=== PATIENT | female | born 1935 | race Caucasian/White ===

== ENCOUNTER 2016-04-14 11:54 | Emergency (ER) | payer OTHER ==
[~2016-04-14] VITALS: Ht 165.1 cm; Wt 81.7 kg
[2016-04-14 11:54] VITALS: Ht 165.1 cm; Wt 81.7 kg
[2016-04-14 12:51] LABS: BASO % 0.2 %; BASO ABS # 0.01 K/uL (0-0.2); COMPLETE YES; EOS % 1.8 %; HEMATOCRIT 38.5 % (37-47); IG% 0.5 %; LYMPH % 11.5 %; LYMPH ABS # 0.69 K/uL (1.2-3.4); MEAN CELL VOLUME 89.1 fL (80-100); MEAN CORPUSCULAR HEMOGLOBIN 29.9 pg (25-34); MEAN CORPUSCULAR HGB CONC 33.5 g/dl (32-36); MEAN PLATELET VOLUME 11.6 fL (7.4-10.4); PLATELET COUNT 179 K/uL (130-400); RED BLOOD COUNT 4.32 M/uL (4.2-5.4); WHITE BLOOD COUNT 6.01 K/uL (4.8-10.8)
[2016-04-14] MEDS ORDERED: QUET1TAB30 PO (12:56)
[2016-04-14] MEDS ORDERED: OXYB5TAB PO (12:56)
[2016-04-14] MEDS ORDERED: VORT10TA12 PO (12:56)
[2016-04-14] MEDS ORDERED: CALC600T9 PO (12:56)
[2016-04-14] MEDS ORDERED: DONE5TAB9 PO (12:56)
[2016-04-14] MEDS ORDERED: OMEGCAP2 PO (12:56)
[2016-04-14] MEDS ORDERED: ASPI81TA28 PO (12:56)
[2016-04-14] MEDS ORDERED: CYAN100T PO (12:56)
[2016-04-14] MEDS ORDERED: GLPSR/5 PO (12:56)
[2016-04-14] MEDS ORDERED: VITACAP26 PO (12:56)
[2016-04-14] MEDS ORDERED: CHOL20007 PO (12:56)
[2016-04-14] MEDS ORDERED: FERR28TA2 PO (12:56)
[2016-04-14] MEDS ORDERED: SITA25TA PO (12:56)
[2016-04-14] MEDS ORDERED: ROSU5TAB PO (12:56)
[2016-04-14 12:59] LABS: ALT/SGPT 38 U/L (12-78); BLOOD UREA NITROGEN 28 mg/dl (7-18); BUN/CREATININE RATIO 17.7 (10-20); CALCIUM 9.4 mg/dl (8.5-10.1); CARBON DIOXIDE 22 mmol/L (21-32); CHLORIDE 103 mmol/L (98-107); GLUCOSE 265 mg/dl (70-99); POTASSIUM 4.6 mmol/L (3.5-5.1); SODIUM 138 mmol/L (136-145)
[2016-04-14 13:09] LABS: ALB/GLOB RATIO 0.9 (0.9-2); ALKALINE PHOSPHATASE 86 U/L (45-117); AST/SGOT 27 U/L (15-37)
[2016-04-14] MEDS ORDERED: SODIUM CHLORIDE 0.9% 1000ML 1,000 ML IV STA (13:22)
--- NOTE | 2016-04-14 13:31 | DIAGNOSTIC IMAGING REPORT ---
SINGLE VIEW CHEST CLINICAL HISTORY: Generalized weakness. FINDINGS: An AP, portable, upright chest radiograph is obtained. No prior studies are available for comparison at the time of dictation. The examination is degraded by portable technique and patient rotation. The heart is mildly enlarged and there is atherosclerotic calcification of the thoracic aorta. The pulmonary vasculature is noncongested. The lungs and pleural spaces are clear. No pneumothorax is seen. The skeletal structures are osteopenic. The bony thorax is grossly intact. IMPRESSION: Cardiac enlargement with no active disease in the chest. Electronically signed by: Justus Galdamez M.D. 04/14/2016 1:29 PM
[2016-04-14] MEDS ORDERED: ACETAMINOPHEN 500 MG TAB PO STA (14:48)
[2016-04-14 15:08] LABS: INFLUENZA B PCR Neg for Influ B (NEG)
[2016-04-14 15:09] LABS: INFLUENZA A PCR POS for Influ A (NEG)
[2016-04-14] MEDS ORDERED: OSEL75CA12 PO (15:12)
--- NOTE | 2016-04-14 15:23 | EMERGENCY ROOM VISIT NOTE ---
History Report prepared by Lindsey: Su Dominguez Under the Supervision of: Dr. Boom Vines D.O. First contact with patient: 13:00 Chief Complaint: WEAKNESS Stated Complaint: LOWER EXTREMITY WEAKNESS Nursing Triage Summary: Per EMS, patient c/o of bilateral leg weakness, onset weakness at 0800 this morning. Patient states "My grandaughters have been sick with the flu. I have been weak all over. I could not even walk I was so weak. I've had a bad cough since Thursday. I feel fine. I am just so weak and tired." History of Present Illness The patient is a 80 year old female who presents to the Emergency Room with complaints of constant bilateral lower extremity weakness that started this morning. The patient states that when she woke up this morning she was experiencing generalized weakness and was unable to walk down the steps. Her helped her to the recliner and brought her a piece of toast but she was too weak to lift the toast up to her mouth and to open her mouth to eat the toast. Since then, the weakness in her upper body has resolved but her legs are still weak and "feel odd." The patient adds that she started to feel "yucky" two days ago when she began experiencing a cough. The cough is productive with white sputum. Source of History: patient Onset: this morning Position: leg (bilateral) Quality: other (weakness) Timing: constant Associated Symptoms: + cough (productive with white sputum), + weakness ( resolved in upper body) Review of Systems See HPI for pertinent positives & negatives. A total of 10 systems reviewed and were otherwise negative. Past Medical & Surgical Medical Problems: (1) Chronic kidney disease, stage IV (severe) Family History No pertinent family history Social History Smoking Status: Never Smoker Marital Status: Housing Status: lives with family Current/Historical Medications Scheduled Aspirin (Aspirin Ec), 81 MG PO DAILY Calcium Carbonate-Vitamin D (Calcium + D), 1 TAB PO DAILY Cholecalciferol (Vitamin D3), 1 TAB PO DAILY Cyanocobalamin (Vitamin B-12), 100 MCG PO DAILY Donepezil HCl (Aricept), 1 TAB PO HS Ferrous Sulfate (Iron), 65 MG PO DAILY Glipizide (Glipizide Xl), 10 MG PO DAILY [place]-3 Fatty Acids (Fish Oil), 1 CAP PO BID Oseltamivir (Tamiflu), 75 MG PO BID Oxybutynin Chloride (Oxybutynin Chloride Er), 1 TAB PO DAILY Quetiapine Fumarate (Seroquel), 12.5 MG PO HS Rosuvastatin Calcium (Crestor), 5 MG PO DAILY Sitagliptin Phosphate (Januvia), 25 MG PO DAILY Vitamins C & E (Vitamin C), 500 MG PO DAILY Vortioxetine HBr (Trintellix), 10 MG PO DAILY Allergies Coded Allergies: No Known Allergies (Unverified , 04/14/16) Physical Exam Vital Signs Date Time Temp Pulse Resp B/P Pulse Ox O2 Delivery O2 Flow Rate FiO2 04/14/16 14:39 60 18 145/73 97 Room Air 04/14/16 14:09 61 18 143/82 98 Room Air 04/14/16 13:21 70 21 144/81 98 Room Air 04/14/16 12:43 66 21 126/67 98 Room Air 04/14/16 12:30 70 04/14/16 11:54 37.6 69 21 145/82 98 Room Air Physical Exam CONSTITUTIONAL/VITAL SIGNS: Reviewed / noted above. GENERAL: Non-toxic in appearance. INTEGUMENTARY: Warm, dry, and [place]. HEAD: Normocephalic. EYES: without scleral icterus or trauma. ENT/OROPHARYNX: clear and moist. LYMPHADENOPATHY/NECK: Is supple without lymphadenopathy or meningismus. RESPIRATORY: Lungs clear and equal. Prominent cough. CARDIOVASCULAR: Regular rate and rhythm. GI/ABDOMEN: Soft and nontender. No organomegaly or pulsatile mass. No rebound or guarding. Normal bowel sounds. EXTREMITIES: Warm and well perfused. BACK: No CVA tenderness. NEUROLOGICAL: Intact without focal deficits. PSYCHIATRIC: normal affect. MUSCULOSKELETAL: Normally developed with good muscle tone. Generalized weakness. Medical Decision & Procedures ER Provider Diagnostic Interpretation: X ray results and stated below per my interpretation and radiology interpretation. SINGLE VIEW CHEST CLINICAL HISTORY: Generalized weakness. FINDINGS: An AP, portable, upright chest radiograph is obtained. No prior studies are available for comparison at the time of dictation. The examination is degraded by portable technique and patient rotation. The heart is mildly enlarged and there is atherosclerotic calcification of the thoracic aorta. The pulmonary vasculature is noncongested. The lungs and pleural spaces are clear. No pneumothorax is seen. The skeletal structures are osteopenic. The bony thorax is grossly intact. IMPRESSION: Cardiac enlargement with no active disease in the chest. Electronically signed by: Justus Galdamez M.D. 04/14/2016 1:29 PM Laboratory Results 04/14/16 11:54 Red Blood Count 4.32, Mean Corpuscular Volume 89.1, Mean Corpuscular Hemoglobin 29.9, Mean Corpuscular Hemoglobin Concent 33.5, Mean Platelet Volume 11.6, Neutrophils (%) (Auto) 72.0, Lymphocytes (%) (Auto) 11.5, Monocytes (%) (Auto) 14.0, Eosinophils (%) (Auto) 1.8, Basophils (%) (Auto) 0.2, Neutrophils # (Auto ) 4.33, Lymphocytes # (Auto) 0.69, Monocytes # (Auto) 0.84, Eosinophils # (Auto ) 0.11, Basophils # (Auto) 0.01 04/14/16 11:54 Test 04/14/16 11:54 04/14/16 13:20 White Blood Count 6.01 K/uL (4.8-10.8) Red Blood Count 4.32 M/uL (4.2-5.4) Hemoglobin 12.9 g/dL (12.0-16.0) Hematocrit 38.5 % (37-47) Mean Corpuscular Volume 89.1 fL (80-100) Mean Corpuscular Hemoglobin 29.9 pg (25-34) Mean Corpuscular Hemoglobin Concent 33.5 g/dl (32-36) Platelet Count 179 K/uL (130-400) Mean Platelet Volume 11.6 fL (7.4-10.4) Neutrophils (%) (Auto) 72.0 % Lymphocytes (%) (Auto) 11.5 % Monocytes (%) (Auto) 14.0 % Eosinophils (%) (Auto) 1.8 % Basophils (%) (Auto) 0.2 % Neutrophils # (Auto) 4.33 K/uL (1.4-6.5) Lymphocytes # (Auto) 0.69 K/uL (1.2-3.4) Monocytes # (Auto) 0.84 K/uL (0.11-0.59) Eosinophils # (Auto) 0.11 K/uL (0-0.5) Basophils # (Auto) 0.01 K/uL (0-0.2) RDW Standard Deviation 46.2 fL (36.4-46.3) RDW Coefficient of Variation 14.0 % (11.5-14.5) Immature Granulocyte % (Auto) 0.5 % Immature Granulocyte # (Auto) 0.03 K/uL (0.00-0.02) Anion Gap 13.0 mmol/L (3-11) Est Creatinine Clear Calc Drug Dose 29.1 ml/min Estimated GFR () 34.7 Estimated GFR (Non- 29.9 BUN/Creatinine Ratio 17.7 (10-20) Calcium Level 9.4 mg/dl (8.5-10.1) Total Bilirubin 0.4 mg/dl (0.2-1) Aspartate Amino Transf (AST/SGOT) 27 U/L (15-37) Alanine Aminotransferase (ALT/SGPT) 38 U/L (12-78) Alkaline Phosphatase 86 U/L (45-117) Total Creatine Kinase 68 U/L (26-192) Creatine Kinase MB < 0.5 ng/ml (0.5-3.6) Creatine Kinase MB Ratio (0-3.0) Troponin I 0.019 ng/ml (0-0.045) Total Protein 7.6 gm/dl (6.4-8.2) Albumin 3.7 gm/dl (3.4-5.0) Globulin 3.9 gm/dl (2.5-4.0) Albumin/Globulin Ratio 0.9 (0.9-2) Thyroid Stimulating Hormone (TSH) 1.440 uIu/ml (0.300-4.500) Influenza Type A (RT-PCR) POS for Influ A (NEG) Influenza Type B (RT-PCR) Neg for Influ B (NEG) Laboratory results as stated above per my review. Medications Administered Medications (Trade) Dose Ordered Sig/Margarita Route Start Time Stop Time Status Last Admin Dose Admin Sodium Chloride (Nss 1000ml) 1,000 ml @ 999 mls/hr Q1H1M STAT IV 04/14/16 13:22 04/14/16 14:22 DC 04/14/16 13:41 999 MLS/HR Acetaminophen (Tylenol Tab) 500 mg NOW STAT PO 04/14/16 14:48 04/14/16 14:49 DC 04/14/16 14:54 500 MG ECG Indication: weakness Rate (beats per minute): 70 Rhythm: normal sinus Findings: no acute ischemic change, no ectopy ED Course 1300: Previous medical records were reviewed. The patient was evaluated in room C7. A complete history and physical examination was performed. 1322: Ordered Sodium Chloride 1000 ml @ 999 mls/hr IV 1448: Ordered Tylenol tab 500 mg PO 1513: On reevaluation, the patient is doing well. I discussed the results and findings with the patient. She verbalized agreement of the treatment plan. She was discharged home. Medical Decision Differential includes acute coronary syndrome, myocardial infarction, CVA, TIA, anemia, infection, pneumonia, UTI, pyelonephritis, poor nutrition, dehydration, electrolyte disturbance,hypoglycemia. Is an 80-year-old female who presents to the ED with a chief complaint of the above symptoms. The patient complains of generalized weakness. She is also had a recent upper respiratory infection. Her exam findings reveal a prominent cough. The respiratory exam reveals generalized weakness. CBC did not reveal any significant anemia. Her electrolytes were normal. The BUN was elevated. She was treated with IV fluids here for dehydration. Influenza screen came back positive for influenza A. She did receive her flu shot this year. Chest x -ray was negative for acute disease. The patient was told the results. She was treated with Tamiflu. She'll be discharged on Tamiflu. Impression Primary Impression: Influenza A Additional Impression: Weakness Scribe Attestation The scribe's documentation has been prepared under my direction and personally reviewed by me in its entirety. I confirm that the note above accurately reflects all work, treatment, procedures, and medical decision making performed by me. Departure Information Dispostion Home / Self-Care Prescriptions Oseltamivir (Tamiflu) 75 Mg Cap 75 MG PO BID, #10 CAP Prov: Boom Vines D.O. 04/14/16 Referrals Sophie Liao DO (PCP) Forms HOME CARE DOCUMENTATION FORM, IMPORTANT VISIT INFORMATION Patient Instructions A Signature Page, Oseltamivir Phosphate Oral capsule Additional Instructions Tamiflu as prescribed. Tylenol/Motrin as needed for pain and fever. Drink plenty of liquids. Rest. Follow-up with your doctor for further care and evaluation in 3-7 days if symptoms persist. Return to the emergency department for worsening or new symptoms or any concerns. You have been examined and treated today on an emergency basis only. This is not a substitute for, or an effort to provide, complete comprehensive medical care. It is impossible to recognize and treat all injuries or illnesses in a single emergency department visit. It is therefore important that you follow up closely with your doctor. Call as soon as possible for an appointment.
[2016-04-14 15:27] VITALS: BP 148/75; PULSE 67; TEMP 37.6; O2SAT 97
== END 2016-04-14 15:35 | disposition home or self-care (01) ==
LOC: EDBD 11:54 → C.EDC 11:54
DX: R53.1 Weakness (principal); N18.4 Chronic kidney disease, stage 4 (severe); Z79.82 Long term (current) use of aspirin; Z79.899 Other long term (current) drug therapy

== ENCOUNTER → 2016-05-21 | Outpatient (CLI) | payer OTHER ==
[~2016-05-21] MED LIST: ASPI81TA28 PO; CALC600T9 PO; CHOL20007 PO; CYAN100T PO; DONE5TAB9 PO; FERR28TA2 PO; GLPSR/5 PO; OMEGCAP2 PO; OSEL75CA12 PO; OXYB5TAB PO; QUET1TAB30 PO; ROSU5TAB PO; SITA25TA PO; VITACAP26 PO; VORT10TA12 PO
[2016-05-21 14:00] LABS: ESTIMATED AVERAGE GLUCOSE 186 mg/dl; HA1C FLAG Normal (Normal)
== END | disposition home or self-care (01) ==
LOC: C.LABPBG 10:33
PROVIDERS: ATTEND Specialist
DX: E11.9 Type 2 diabetes mellitus without complications (principal)

== ENCOUNTER → 2016-06-09 | Outpatient (CLI) | payer OTHER ==
--- NOTE | 2016-06-09 13:29 | DIAGNOSTIC IMAGING REPORT ---
ULTRASOUND OF THE THYROID GLAND CLINICAL HISTORY: Nontoxic multinodular goiter. COMPARISON STUDY: No priors. TECHNIQUE: Real-time, grayscale, and color flow sonography of the thyroid gland is performed utilizing a high-frequency linear transducer. Images are reviewed in the transverse and longitudinal planes. FINDINGS: Right lobe: The right lobe of the thyroid gland is normal in size and homogeneous in echotexture, measuring 5.1 x 1.9 x 1.9 cm. Left lobe: The left lobe of the thyroid gland is normal in size and homogeneous in echotexture, measuring 4.8 x 2.4 x 1.8 cm. Isthmus: The thyroid isthmus is normal in appearance and measures 0.4 cm in AP diameter. A 6 mm cyst is incidentally noted on the right. Soft tissues: There is a 5.7 x 1.5 x 3.0 cm a circumscribed/lobulated soft tissue structure seen adjacent to the left lobe of the thyroid gland. This largely blends into the surrounding subcutaneous fat and is typical in appearance for a lipoma. IMPRESSION: 1. Unremarkable sonographic assessment of the thyroid gland. 2. 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 Electronically signed by: Justus Galdamez M.D. 06/09/2016 1:28 PM Dictated Date/Time: 06/09/2016 1:26 PM
== END | disposition home or self-care (01) ==
LOC: C.ULTR 12:48
PROVIDERS: ATTEND Family Medicine
DX: E04.2 Nontoxic multinodular goiter (principal)

== ENCOUNTER → 2016-06-19 | Outpatient (CLI) | payer OTHER | END | disposition home or self-care (01) | LOC: C.MAMM 12:51 | PROVIDERS: ATTEND Family Medicine | DX: M81.0 Age-related osteoporosis without current pathological fracture (principal); M85.852 Other specified disorders of bone density and structure, left thigh; M85.851 Other specified disorders of bone density and structure, right thigh ==

== ENCOUNTER → 2016-07-14 | Outpatient (CLI) | payer OTHER ==
[2016-07-14 12:31] LABS: URINE APPEARANCE CLEAR (CLEAR); URINE BILIRUBIN NEG (NEG); URINE COLOR YELLOW; URINE EPITHELIAL CELL AUTO 0-5 /lpf (0-5); URINE NITRITE NEG (NEG); URINE SPECIFIC GRAVITY 1.009 (1.000-1.030); UROBILINOGEN NEG (NEG)
[2016-07-14 12:33] LABS: HEMATOCRIT 36.3 % (37-47)
[2016-07-14 12:43] LABS: MANUAL MICROSCOPIC REQUIRED? NO; REVIEW REQ? NO
[2016-07-14 12:56] LABS: BLOOD UREA NITROGEN 33 mg/dl (7-18); BUN/CREATININE RATIO 18.2 (10-20); CALCIUM 9.3 mg/dl (8.5-10.1); CARBON DIOXIDE 26 mmol/L (21-32); CHLORIDE 105 mmol/L (98-107); GLUCOSE 165 mg/dl (70-99); POTASSIUM 4.5 mmol/L (3.5-5.1); SODIUM 140 mmol/L (136-145)
[2016-07-14 12:57] LABS: PHOSPHORUS 3.2 mg/dl (2.5-4.9)
[2016-07-14 13:15] LABS: RATIO 45.4 mcg/mg (0-30.0)
== END | disposition home or self-care (01) ==
LOC: C.LABPBG 10:34
PROVIDERS: ATTEND Internal Medicine Nephrology
DX: N18.4 Chronic kidney disease, stage 4 (severe) (principal); N20.0 Calculus of kidney; E11.22 Type 2 diabetes mellitus with diabetic chronic kidney disease; E64.9 Sequelae of unspecified nutritional deficiency

== ENCOUNTER → 2016-08-21 | Outpatient (CLI) | payer OTHER ==
[2016-08-21 18:07] LABS: CALCIUM URINE 5.1 mg/dl
== END | disposition home or self-care (01) ==
LOC: C.LABPBG 13:44
PROVIDERS: ATTEND Internal Medicine Rheumatology
DX: E61.8 Deficiency of other specified nutrient elements (principal); M81.0 Age-related osteoporosis without current pathological fracture; Z78.0 Asymptomatic menopausal state; E55.9 Vitamin D deficiency, unspecified

== ENCOUNTER → 2016-12-02 | Outpatient (CLI) | payer OTHER ==
[~2016-12-02] MED LIST changes: -OSEL75CA12 PO
[2016-12-02 13:30] LABS: ALT/SGPT 35 U/L (12-78); AST/SGOT 23 U/L (15-37); BLOOD UREA NITROGEN 23 mg/dl (7-18); BUN/CREATININE RATIO 15.5 (10-20); CALCIUM 9.2 mg/dl (8.5-10.1); CARBON DIOXIDE 26 mmol/L (21-32); CHLORIDE 110 mmol/L (98-107); CHOLESTEROL 192 mg/dl (0-200); GLUCOSE 138 mg/dl (70-99); POTASSIUM 4.5 mmol/L (3.5-5.1); SODIUM 141 mmol/L (136-145)
[2016-12-02 13:40] LABS: ALB/GLOB RATIO 1.1 (0.9-2); ALKALINE PHOSPHATASE 85 U/L (45-117); CHOLESTEROL/HDL RATIO 2.3; ESTIMATED AVERAGE GLUCOSE 197 mg/dl; HA1C FLAG Normal (Normal); HDL CHOLESTEROL 83 mg/dl; LDL CHOLESTEROL CALCULATED 82 mg/dl; TRIGLYCERIDES 134 mg/dl (0-150); VERY LOW DENSITY LIPOPROT CALC 27 mg/dl
== END | disposition home or self-care (01) ==
LOC: C.LABPBG 09:58
PROVIDERS: ATTEND Family Medicine
DX: E11.9 Type 2 diabetes mellitus without complications (principal)

== ENCOUNTER → 2017-01-21 | Outpatient (CLI) | payer OTHER ==
[2017-01-21 11:56] LABS: HEMATOCRIT 38.2 % (37-47)
[2017-01-21 11:57] LABS: URINE APPEARANCE CLEAR (CLEAR); URINE BILIRUBIN NEG (NEG); URINE COLOR YELLOW; URINE EPITHELIAL CELL AUTO 0-5 /lpf (0-5); URINE NITRITE NEG (NEG); URINE PH 5.5 (4.5-7.5); URINE SPECIFIC GRAVITY 1.015 (1.000-1.030); UROBILINOGEN NEG (NEG)
[2017-01-21 12:04] LABS: MANUAL MICROSCOPIC REQUIRED? NO; REVIEW REQ? NO
[2017-01-21 13:16] LABS: RATIO 50.9 mcg/mg (0-30.0)
[2017-01-21 18:18] LABS: BLOOD UREA NITROGEN 33 mg/dl (7-18); BUN/CREATININE RATIO 20.5 (10-20); CALCIUM 9.6 mg/dl (8.5-10.1); CARBON DIOXIDE 22 mmol/L (21-32); CHLORIDE 107 mmol/L (98-107); GLUCOSE 177 mg/dl (70-99); POTASSIUM 4.5 mmol/L (3.5-5.1); SODIUM 139 mmol/L (136-145)
== END | disposition home or self-care (01) ==
LOC: C.LABPBG 10:35
PROVIDERS: ATTEND Internal Medicine Nephrology
DX: N18.3 Chronic kidney disease, stage 3 (moderate) (principal); N20.0 Calculus of kidney; E11.22 Type 2 diabetes mellitus with diabetic chronic kidney disease; D64.9 Anemia, unspecified

== ENCOUNTER → 2017-04-20 | Outpatient (CLI) | payer OTHER ==
[2017-04-20 18:33] LABS: BLOOD UREA NITROGEN 23 mg/dl (7-18); CALCIUM 9.4 mg/dl (8.5-10.1); CARBON DIOXIDE 24 mmol/L (21-32); CREATININE 1.62 mg/dl (0.60-1.20); GLUCOSE 224 mg/dl (70-99); POTASSIUM 4.4 mmol/L (3.5-5.1); SODIUM 138 mmol/L (136-145)
[2017-04-20 18:50] LABS: HEMOGLOBIN A1C 8.7 % (4.5-5.6)
== END | disposition home or self-care (01) ==
LOC: C.LABPBG 15:59
PROVIDERS: ATTEND Family Medicine
DX: E11.9 Type 2 diabetes mellitus without complications (principal)

== ENCOUNTER → 2017-07-28 | Outpatient (CLI) | payer OTHER ==
[2017-07-29 06:12] LABS: HEMOGLOBIN A1C 8.1 % (4.5-5.6)
== END | disposition home or self-care (01) ==
LOC: C.LABPBG 13:55
PROVIDERS: ATTEND Nurse Practitioner Family
DX: E11.65 Type 2 diabetes mellitus with hyperglycemia (principal)

== ENCOUNTER → 2017-08-18 | Outpatient (CLI) | payer OTHER ==
[2017-08-18 14:34] LABS: ALBUMIN 3.7 gm/dl (3.4-5.0); ALT/SGPT 32 U/L (12-78); AST/SGOT 25 U/L (15-37); BLOOD UREA NITROGEN 31 mg/dl (7-18); CALCIUM 9.2 mg/dl (8.5-10.1); CARBON DIOXIDE 24 mmol/L (21-32); CREATININE 1.74 mg/dl (0.60-1.20); GLUCOSE 135 mg/dl (70-99); POTASSIUM 4.3 mmol/L (3.5-5.1); SODIUM 140 mmol/L (136-145)
[2017-08-18 14:37] LABS: ALKALINE PHOSPHATASE 86 U/L (45-117); CHOLESTEROL 159 mg/dl (0-200); LDL CHOLESTEROL CALCULATED 73 mg/dl; TOTAL PROTEIN 7.1 gm/dl (6.4-8.2)
== END | disposition home or self-care (01) ==
LOC: C.LABPBG 08:49
PROVIDERS: ATTEND Family Medicine
DX: E78.5 Hyperlipidemia, unspecified (principal)

== ENCOUNTER → 2017-08-19 | Outpatient (CLI) | payer OTHER | END | disposition home or self-care (01) | LOC: C.LABPBG 13:35 | PROVIDERS: ATTEND Family Medicine | DX: R94.6 Abnormal results of thyroid function studies (principal) ==

== ENCOUNTER 2017-11-29 18:19 | Emergency (ER) | payer OTHER ==
[~2017-11-29] VITALS: Ht 162.6 cm; Wt 82.6 kg
[2017-11-29 18:22] VITALS: TEMP 36.5; Ht 162.6 cm; Wt 82.6 kg
[2017-11-29] MEDS ORDERED: ASPIRIN 324 MG CHEW PO STA (18:47)
[2017-11-29 18:54] VITALS: O2SAT 98
[2017-11-29] MEDS ORDERED: NITROGLYCERIN 2% OINTMENT 30GM TUBE EXT ONE (19:00)
[2017-11-29 19:10] LABS: BASO % 0.5 %; BASO ABS # 0.02 K/uL (0-0.2); EOS % 5.1 %; EOS ABS # 0.21 K/uL (0-0.5); HEMATOCRIT 37.4 % (37-47); IG# 0.01 K/uL (0.00-0.02); LYMPH % 31.1 %; LYMPH ABS # 1.28 K/uL (1.2-3.4); MEAN CELL VOLUME 91.2 fL (80-100); MEAN CORPUSCULAR HEMOGLOBIN 29.3 pg (25-34); MEAN CORPUSCULAR HGB CONC 32.1 g/dl (32-36); MEAN PLATELET VOLUME 11.3 fL (7.4-10.4); MONO % 7.3 %; NEUT % 55.8 %; NEUT ABS # 2.29 K/uL (1.4-6.5); PLATELET COUNT 161 K/uL (130-400); RED CELL DISTRIBUTION WIDTH SD 46.3 fL (36.4-46.3); WHITE BLOOD COUNT 4.11 K/uL (4.8-10.8)
--- NOTE | 2017-11-29 19:11 | DIAGNOSTIC IMAGING REPORT ---
CHEST ONE VIEW PORTABLE CLINICAL HISTORY: Chest pain. COMPARISON STUDY: Chest radiograph April 14, 2016. FINDINGS: The lung volumes are normal. Lungs are clear. No pneumothorax or pleural effusion is noted. There is no evidence for pulmonary edema. Mild cardiomegaly is unchanged. The appearance of the chest is unchanged. IMPRESSION: No acute cardiopulmonary findings. Electronically signed by: Ash Medina M.D. 11/29/2017 7:10 PM Dictated Date/Time: 11/29/2017 7:10 PM
[2017-11-29 19:19] LABS: PTT PATIENT 23.1 SECONDS (21.0-31.0)
[2017-11-29 19:29] LABS: CALCIUM 9.2 mg/dl (8.5-10.1); CREATININE 1.7 mg/dl (0.60-1.20); POTASSIUM 4.7 mmol/L (3.5-5.1)
[2017-11-29] MEDS ORDERED: GLIP1TAB61 PO (20:31)
[2017-11-29] MEDS ORDERED: MULTCAP33 PO (20:33)
[2017-11-29] MEDS ORDERED: INSDGI SC (20:33)
[2017-11-29] MEDS ORDERED: OMEG10007 PO (20:33)
[2017-11-29] MEDS ORDERED: LATA0.5S OP (20:33)
--- NOTE | 2017-11-29 23:14 | EMERGENCY ROOM VISIT NOTE ---
History Report prepared by Lindsey: David Diego Under the Supervision of: Dr. Alexis Correa M.D. First contact with patient: 18:36 Chief Complaint: CHEST PAIN Stated Complaint: CHEST PAINS, BACK PAIN History of Present Illness The patient is a 82 year old female who presents to the Emergency Room with complaints of intermittent chest pains that started last night but came back again today at about 1545. The patient reports the pain is sharp and rates it as a 2/10. She also reports that the pain is in the center of her chest and radiates to her posterior right shoulder. She notes that the swelling in her legs is normals and that she has not traveled long distances recently, nor has she been bed ridden or undergone surgeries. The patient denies shortness of breath, diaphoresis, vomiting, fever, chills, normal hypertension, or smoking, however she does have a cough. Source of History: patient Onset: 3 hours ago Position: chest Symptom Intensity: 2/10 Quality: sharp Timing: intermittent Associated Symptoms: + cough, No fevers, No chills, No SOB, No vomiting Review of Systems See HPI for pertinent positives & negatives. A total of 10 systems reviewed and were otherwise negative. Past Medical & Surgical Medical Problems: (1) Calculus Of Kidney (2) Chronic kidney disease, stage IV (severe) (3) Hyperlipidemia, Unspecified (4) Spondylosis W/O Myelopathy Or Radiculopathy, Lumbar Region (5) Type 2 Diabetes Mellitus W Diabetic Chronic Kidney Disease (6) Vitamin D Deficiency, Unspecified Family History No pertinent family history Social History Smoking Status: Never Smoker Alcohol Use: none Marital Status: Housing Status: lives with family Occupation Status: retired Current/Historical Medications Scheduled Aspirin (Aspirin Ec), 81 MG PO HS Calcium Carbonate-Vitamin D (Calcium + D), 1 TAB PO DAILY Cholecalciferol (Vitamin D3), 1 TAB PO DAILY Donepezil HCl (Aricept), 1 TAB PO HS Ferrous Sulfate (Iron), 65 MG PO DAILY Fish Oil ([place]-3), 1 CAP PO BID Glipizide Xl (Glucotrol Xl), 10 MG PO QAM Insulin Glargine (Lantus), 16 UNITS SC HS Latanoprost (Xalatan 0.005% Oph Yanci), 1 DROPS OP HS Multiple Vitamins W/ Minerals (Preservision Areds), 1 CAP PO DAILY [place]-3 Fatty Acids (Fish Oil), 1 CAP PO BID Oxybutynin Chloride (Oxybutynin Chloride Er), 1 TAB PO DAILY Quetiapine Fumarate (Seroquel), 25 MG PO HS Rosuvastatin Calcium (Crestor), 5 MG PO DAILY Vitamins C & E (Vitamin C), 500 MG PO DAILY Vortioxetine HBr (Trintellix), 10 MG PO HS Allergies Coded Allergies: No Known Allergies (Unverified , 04/14/16) Physical Exam Vital Signs Date Time Temp Pulse Resp B/P (MAP) Pulse Ox O2 Delivery O2 Flow Rate FiO2 11/29/17 22:31 172/99 11/29/17 22:29 51 21 11/29/17 22:26 63 11/29/17 22:22 11/29/17 22:21 11/29/17 22:19 189/92 11/29/17 22:01 185/85 11/29/17 21:59 53 12 11/29/17 21:42 180/89 11/29/17 21:36 11/29/17 21:29 27 11/29/17 21:01 181/86 11/29/17 20:59 36 11/29/17 20:43 173/89 11/29/17 20:42 173/89 11/29/17 20:29 52 19 11/29/17 20:24 62 19 11/29/17 20:02 181/80 96 Room Air 11/29/17 19:54 53 24 11/29/17 19:32 179/80 11/29/17 19:24 56 10 11/29/17 19:19 63 15 11/29/17 19:16 189/75 11/29/17 19:02 171/75 11/29/17 18:54 98 Room Air 11/29/17 18:49 55 16 11/29/17 18:41 181/77 11/29/17 18:41 56 11/29/17 18:38 203/89 11/29/17 18:36 55 13 181/77 99 Room Air 11/29/17 18:36 98 Room Air 11/29/17 18:36 200/83 11/29/17 18:22 36.5 68 20 187/90 99 Room Air Physical Exam Constitutional: Vital signs reviewed. Eyes: Pupils are equal round reactive to light. Conjunctiva are noninjected. ENT: Pharynx is clear without erythema or exudate. Mucous membranes are moist. Neck supple without meningeal signs. Respiratory: Clear to auscultation bilaterally. Breath sounds are equal bilaterally. Cardiovascular: Regular rate and rhythm. No rubs or gallops. GI: Soft, nondistended and nontender. Bowel sounds are present. Musculoskeletal: Bilateral lower extremity edema. No lower extremity tenderness. Reproducible chest wall tenderness to sternum without erythema or increased warmth. Integumentary: No cyanosis. Neurological: The patient is awake and alert. No focal deficits. Psychiatric: Normal affect. Medical Decision & Procedures ER Provider Diagnostic Interpretation: Radiology results as stated below per my review and the radiologist's interpretation: CHEST ONE VIEW PORTABLE CLINICAL HISTORY: Chest pain. COMPARISON STUDY: Chest radiograph April 14, 2016. FINDINGS: The lung volumes are normal. Lungs are clear. No pneumothorax or pleural effusion is noted. There is no evidence for pulmonary edema. Mild cardiomegaly is unchanged. The appearance of the chest is unchanged. IMPRESSION: No acute cardiopulmonary findings. Electronically signed by: Ash Medina M.D. 11/29/2017 7:10 PM Dictated Date/Time: 11/29/2017 7:10 PM Laboratory Results 11/29/17 18:49 Red Blood Count 4.10, Mean Corpuscular Volume 91.2, Mean Corpuscular Hemoglobin 29.3, Mean Corpuscular Hemoglobin Concent 32.1, Mean Platelet Volume 11.3, Neutrophils (%) (Auto) 55.8, Lymphocytes (%) (Auto) 31.1, Monocytes (%) (Auto) 7.3, Eosinophils (%) (Auto) 5.1, Basophils (%) (Auto) 0.5, Neutrophils # (Auto) 2.29, Lymphocytes # (Auto) 1.28, Monocytes # (Auto) 0.30, Eosinophils # (Auto) 0.21, Basophils # (Auto) 0.02 11/29/17 18:49 Test 11/29/17 18:49 11/29/17 22:30 11/29/17 22:50 White Blood Count 4.11 K/uL (4.8-10.8) Red Blood Count 4.10 M/uL (4.2-5.4) Hemoglobin 12.0 g/dL (12.0-16.0) Hematocrit 37.4 % (37-47) Mean Corpuscular Volume 91.2 fL (80-100) Mean Corpuscular Hemoglobin 29.3 pg (25-34) Mean Corpuscular Hemoglobin Concent 32.1 g/dl (32-36) Platelet Count 161 K/uL (130-400) Mean Platelet Volume 11.3 fL (7.4-10.4) Neutrophils (%) (Auto) 55.8 % Lymphocytes (%) (Auto) 31.1 % Monocytes (%) (Auto) 7.3 % Eosinophils (%) (Auto) 5.1 % Basophils (%) (Auto) 0.5 % Neutrophils # (Auto) 2.29 K/uL (1.4-6.5) Lymphocytes # (Auto) 1.28 K/uL (1.2-3.4) Monocytes # (Auto) 0.30 K/uL (0.11-0.59) Eosinophils # (Auto) 0.21 K/uL (0-0.5) Basophils # (Auto) 0.02 K/uL (0-0.2) RDW Standard Deviation 46.3 fL (36.4-46.3) RDW Coefficient of Variation 14.0 % (11.5-14.5) Immature Granulocyte % (Auto) 0.2 % Immature Granulocyte # (Auto) 0.01 K/uL (0.00-0.02) Prothrombin Time 10.9 SECONDS (9.0-12.0) Prothromb Time International Ratio 1.0 (0.9-1.1) Activated Partial Thromboplast Time 23.1 SECONDS (21.0-31.0) Partial Thromboplastin Ratio 0.9 Anion Gap 7.0 mmol/L (3-11) Est Creatinine Clear Calc Drug Dose 26.1 ml/min Estimated GFR () 31.8 Estimated GFR (Non- 27.4 BUN/Creatinine Ratio 19.2 (10-20) Calcium Level 9.2 mg/dl (8.5-10.1) Bedside Troponin I < 0.030 ng/ml (0-0.045) Laboratory results as reviewed by me. Medications Administered Medications (Trade) Dose Ordered Sig/Margarita Route Start Time Stop Time Status Last Admin Dose Admin Aspirin (Aspirin Chew) 324 mg NOW STAT PO 11/29/17 18:47 11/29/17 18:48 DC 11/29/17 19:06 324 MG Nitroglycerin (Nitroglycerin 2% Oint) 1 inch NOW ONCE EXT 11/29/17 19:00 11/29/17 19:01 DC 11/29/17 19:06 1 INCH ECG Per My Interpretation Indication: chest pain Rate (beats per minute): 63 Rhythm: normal sinus Findings: RBBB, other (No ST elevation, No PVC) Comparison ECG Date: April 14, 2016 Change: no significant change ED Course 184: The patient was evaluated in room B4. A complete history and physical exam was performed. 1846: Aspirin 324mg PO 1900: Nitroglycerin 1 inch EXT 1950: I discussed tests results with the patient and recommended hospitalization 2012: I spoke to Dr. Barr about accepting the patient 2229: The patient was assessed by Dr. Barr. She felt that the patient could be discharged home if a second troponin was performed and was negative. She discussed this plan with the patient and she was agreeable to discharge. The second troponin is currently pending. Medical Decision This is an 82-year-old female presents with chest pain. Differential diagnosis includes unstable angina, CA, pleurisy, costochondritis, pneumonia, GERD. I did perform a limited focused review of portions of the patient's old chart on the electronic medical record. The patient has had no recent pertinent visits to this hospital. I did evaluate the patient as noted above. IV access was established. The patient was placed on a continuous cardiac specialist. I did order and personally review the patient's 12-lead EKG and chest x-ray as described above. Twelve- lead EKG demonstrates a right bundle branch block. The patient was given aspirin and nitroglycerin. I did order and review the patient's blood work as noted in the electronic medical record. Her troponin is negative. I did reassess patient the patient states her chest pain is resolved. I did discuss the test results with her. I did recommend hospitalization for repeat cardiac enzymes. I did discuss case with the hospitalist and case folder. The hospitalist later evaluate the patient and felt that she could go home with close follow-up with Dr. deutsch. She did order a second troponin. The second troponin was negative. The patient was discharged and will follow-up with her doctor. Medication Reconcilliation Current Medication List: was personally reviewed by me Blood Pressure Screening Patient's blood pressure: Elevated blood pressure Blood pressure disposition: Referred to PCP Consults Time Called: 2012 Consulting Physician: Dr. Barr - [facility] Hospitalist Returned Call: [address] Barr of [facility] Hospitalist. We discussed the patient and tests results. The patient will be further evaluated by Dr. Barr. Impression Primary Impression: Acute chest pain Scribe Attestation The scribe's documentation has been prepared under my direct and personally reviewed by me in its entirety. I confirm that the note above accurately reflects all work, treatment, procedures, and medical decision making performed by me. Departure Information Dispostion Being Evaluated By Hospitalist Referrals Sophie Deutsch DO (PCP) Forms HOME CARE DOCUMENTATION FORM, IMPORTANT VISIT INFORMATION Patient Instructions My [facility]
[2017-11-29 23:23] VITALS: BP 159/89; PULSE 63; O2SAT 96
--- NOTE | 2017-11-30 00:29 | Medical Consult ---
Consultation Date of Consultation: Nov 30, 2017. Attending Physician: Reason for Consultation: Possible hospital admission History of Present Illness Patient is a pleasant 82yo female with history of CKD Stage IV, DM, Depression presenting with chest and back discomfort. Patient states that she was sitting on her couch when she developed acute onset of sharp substernal chest pain at approximately 15:00. Pain 8/10, non-pleuritic, non-exertional. No associated diaphoresis, palpitations, lightheadedness. No radiation to the jaw or arm. She had concomitant pain in her mid back between her shoulder blades that was 10 /10. The pain lasted appx 5 hours and was beginning to resolve on its own when she arrived to the ER. She received sublingual nitroglycerine x 1 dose with complete resolution of symptoms. She had similar discomfort yesterday that lasted 4-5 hours and resolved after taking an ASA. Patient denies fevers/chills/sweats, denies palpitations/edema/orthopnea/cough/ SOB, denies abdominal pain/nausea/vomiting/diarrhea/constipation. Denies numbness/tingling/dizziness or lightheadedness. No trauma/falls. No new physical activity. She has no documented history of CAD or arrhythmia. Had an exercise stress test 5 years ago that was normal by report. ER Course: ASA 324mg, Nitro 0.4mg Past Medical/Surgical History Medical Problems: CKD Stage IV - baseline Cr of 1.5 - 1.7 Diabetes - [id number]=4.9 on 10/28/17 Depression Past Surgical History: Partial hysterectomy Rotator cuff Rectocele Family History No pertinent family history CAD and Cancer Social History Smoking Status: Never Smoker Smokeless Tobacco Use: No Alcohol Use: none Drug Use: none Marital Status: Housing Status: lives with family Occupation Status: retired Allergies Coded Allergies: No Known Allergies (Unverified , 04/14/16) Current Inpatient Medications Crestor 5mg po daily Aricept 5mg po daily Lantus 16 units qHS Glipizide 10mg po daily Trintellix 10mg po daily Oxybutynin 5mg Lantanoprost ASA 81mg Iron Vitamin C Vitamin D3 Review of Systems Constitutional: No fever, No chills, No sweats, No weight loss, No weakness Eyes: No worsening of vision, No diplopia ENT: No hearing loss, No sore throat, No trouble swallowing Respiratory: No cough, No shortness of breath Cardiovascular: + chest pain, No orthopnea, No edema, No palpitations Abdomen: No pain, No nausea, No vomiting, No diarrhea, No constipation Musculoskeletal: No joint pain, No muscle pain Genitourinary - Female: No dysuria, No hematuria Neurologic: No weakness, No numbness/tingling Endocrine: No fatigue Hematologic / Lymphatic: No abnormal bleeding/bruising Integumentary: No rash Physical Exam Date Time Temp Pulse Resp B/P (MAP) Pulse Ox O2 Delivery O2 Flow Rate FiO2 11/29/17 23:23 63 14 159/89 96 11/29/17 22:31 172/99 11/29/17 22:29 51 21 11/29/17 22:26 63 11/29/17 22:22 11/29/17 22:21 11/29/17 22:19 189/92 11/29/17 22:01 185/85 11/29/17 21:59 53 12 11/29/17 21:42 180/89 11/29/17 21:36 11/29/17 21:29 27 11/29/17 21:01 181/86 11/29/17 20:59 36 11/29/17 20:43 173/89 11/29/17 20:42 173/89 11/29/17 20:29 52 19 11/29/17 20:24 62 19 11/29/17 20:02 181/80 96 Room Air 11/29/17 19:54 53 24 11/29/17 19:32 179/80 11/29/17 19:24 56 10 11/29/17 19:19 63 15 11/29/17 19:16 189/75 11/29/17 19:02 171/75 11/29/17 18:54 98 Room Air 11/29/17 18:49 55 16 11/29/17 18:41 181/77 11/29/17 18:41 56 11/29/17 18:38 203/89 11/29/17 18:36 55 13 181/77 99 Room Air 11/29/17 18:36 98 Room Air 11/29/17 18:36 200/83 11/29/17 18:22 36.5 68 20 187/90 99 Room Air General: patient resting comfortably in bed, NAD, AA&O x 4. Blood pressure 189 /92 in LUE and 203/94 in RUE Skin: warm, dry, intact, no rashes or lesions HEENT: NC/AT, PERRL, EOMI, anicteric sclera, conjunctiva without injection, fundoscopic exam with no papilledema or hemorrhage, nares patent, moist mucus membranes, no oropharyngeal lesions, neck supple, trachea midline, no thyromegaly, no LAD Heart: +S1/S2, regular, no m/r/g, reproducible pain with palpation of sternum and back Lungs: equal air entry bilaterally, no rales/rhonchi/wheezes Abdomen: soft, NT/ND, no masses/organomegaly/ascites Extremities: warm, well perfused, no clubbing/cyanosis or edema, 2+ palpable pulses in UE/LE bilaterally Neuro: grossly nonfocal Laboratory Results Last 24 Hours Test 11/29/17 18:49 11/29/17 18:53 11/29/17 22:30 11/29/17 22:50 White Blood Count 4.11 K/uL Red Blood Count 4.10 M/uL Hemoglobin 12.0 g/dL Hematocrit 37.4 % Mean Corpuscular Volume 91.2 fL Mean Corpuscular Hemoglobin 29.3 pg Mean Corpuscular Hemoglobin Concent 32.1 g/dl Platelet Count 161 K/uL Mean Platelet Volume 11.3 fL Neutrophils (%) (Auto) 55.8 % Lymphocytes (%) (Auto) 31.1 % Monocytes (%) (Auto) 7.3 % Eosinophils (%) (Auto) 5.1 % Basophils (%) (Auto) 0.5 % Neutrophils # (Auto) 2.29 K/uL Lymphocytes # (Auto) 1.28 K/uL Monocytes # (Auto) 0.30 K/uL Eosinophils # (Auto) 0.21 K/uL Basophils # (Auto) 0.02 K/uL RDW Standard Deviation 46.3 fL RDW Coefficient of Variation 14.0 % Immature Granulocyte % (Auto) 0.2 % Immature Granulocyte # (Auto) 0.01 K/uL Prothrombin Time 10.9 SECONDS Prothromb Time International Ratio 1.0 Activated Partial Thromboplast Time 23.1 SECONDS Partial Thromboplastin Ratio 0.9 Sodium Level 138 mmol/L Potassium Level 4.7 mmol/L Chloride Level 104 mmol/L Carbon Dioxide Level 27 mmol/L Anion Gap 7.0 mmol/L Blood Urea Nitrogen 33 mg/dl Creatinine 1.70 mg/dl Est Creatinine Clear Calc Drug Dose 26.1 ml/min Estimated GFR () 31.8 Estimated GFR (Non- 27.4 BUN/Creatinine Ratio 19.2 Random Glucose 226 mg/dl Calcium Level 9.2 mg/dl Bedside Troponin I < 0.030 ng/ml < 0.030 ng/ml Assessment & Plan 82yo female presenting with reproducible substernal chest discomfort. 1. Chest pain - substernal, reproducible. EKG with no evidence of ischemia. Troponin x 2 negative. CXR WNL. Patient with Heart Score of 3 (age, risk factors of DM) making her low risk for major adverse cardiac events. Pain most likely musculoskeletal in nature -Patient may be discharged home with outpatient followup -Tylenol as needed for musculoskeletal pain -Heating pad for symptomatic relief 2. Elevated blood pressure - patient reports checking her blood pressure at home routinely and typically runs 120-130 systolic. States that it is frequently elevated when she is seen in the ER thought to be secondary to anxiety. Presently asymptomatic -Instructed patient to continue to monitor her blood pressure at home and contact her PCP should it remain elevated -She is to return to the ER if she develops symptoms of CHÁVEZ, visual disturbance, CP, SOB 3. Elevated blood sugar - 226. Patient reports well controlled blood sugars at home, typically in the low 100's in the morning. Last AIC of 7.9 correlating with average blood sugar of 180. -Continue outpatient regimen -Followup with PCP for medication titration 4. CKD Stage IV - patient with baseline Cr of 1.5-1.7. Presently 1.7 -Continue to monitor -Avoid nephrotoxic agents Patient is medically stable for discharge home. She is instructed to return to the ER should she develop worsening or persistent CP, SOB or lightheadedness. Instructed to continue outpatient monitoring of BP and BS and to followup with her PCP for medication adjustments as needed. Patient was in agreement with above plan. Thank you for this consult.
== END 2017-11-29 23:24 | disposition home or self-care (01) ==
LOC: C.EDB 18:21
DX: R07.9 Chest pain, unspecified (principal); E78.5 Hyperlipidemia, unspecified; R03.0 Elevated blood-pressure reading, without diagnosis of hypertension; F32.9 Major depressive disorder, single episode, unspecified; N18.4 Chronic kidney disease, stage 4 (severe); E11.22 Type 2 diabetes mellitus with diabetic chronic kidney disease; Z87.442 Personal history of urinary calculi; E55.9 Vitamin D deficiency, unspecified; Z79.82 Long term (current) use of aspirin; Z79.84 Long term (current) use of oral hypoglycemic drugs; Z79.4 Long term (current) use of insulin; Z79.899 Other long term (current) drug therapy; Z90.710 Acquired absence of both cervix and uterus; Z82.49 Family history of ischemic heart disease and other diseases of the circulatory system; Z80.9 Family history of malignant neoplasm, unspecified

== ENCOUNTER 2022-01-22 14:42 | Observation (INO) ==
[2022-01-22] MEDS ORDERED: ONDANSETRON INJ 2 MG/ML 2 ML VIAL ONE (14:46)
[2022-01-22] MEDS ORDERED: OPTIRAY 300 500mL IV ONE (14:47)
[2022-01-22] MEDS ORDERED: LABETALOL HCL IV 5 MG/ML 20ML IV STA (15:02)
--- NOTE | 2022-01-22 15:06 | Emergency Department Note ---
Impression & Plan Acute CVA (cerebrovascular accident), Acute ischemic stroke, Anemia ED Provider Note NAME: MIESHA BERRY AGE: 86 SEX: F : 1935 ARRIVES VIA: Ambulance INFORMANT: Patient, EMS, the patient's daughter ED PROVIDER(S): Jim Mckenzie DO CHIEF COMPLAINT: Strokelike symptoms HPI: The patient is an 86-year-old female who presented to the emergency department by ambulance for strokelike symptoms. The patient was made a stroke alert prior to arrival after a medic command call with the market basket maker. The patient started having symptoms around 10 AM this morning. The patient was with her significant other. The patient woke up around 8 AM and was in her normal state of health. Apparently she started having problems with speaking and started having tremors over the last few hours. Her significant other states that the symptoms began around 10 AM. Her significant other called her daughter who went to the house and found her to be in a change in her mental status with difficulty speaking and tremors. 911 was called at approximately 1:30 PM. The patient was taken directly to CT after orders were put in by myself. The patient also complains of an occipital headache as well as nausea. The patient started having episodes of nausea vomiting and required antiemetics prior to having CT. There was a delay in the initial CT because of this. The patient denies having any chest pain or difficulty breathing. She is been compliant with her outpatient medications. Blood sugar was not low. The patient is a history of diabetes but no history of stroke in the past. ROS: See above HPI for pertinent positives & negatives. A total of 10 systems reviewed and were otherwise negative. PAST MEDICAL HISTORY: See Below PAST SURGICAL HISTORY: See Below FAMILY HISTORY: See Below SOCIAL HISTORY: See Below HOME MEDICATIONS: See Below ALLERGIES: See Below VITALS: See Below PHYSICAL EXAMINATION: GENERAL: The patient is awake and alert. The patient is somewhat anxious appearing. EYES: The conjunctivae are clear. The pupils are round and reactive. EARS, NOSE, MOUTH AND THROAT: The nose is without any evidence of any deformity. Mucous membranes are moist. NECK: The neck is nontender and supple. RESPIRATORY: Normal respiratory effort is noted there is no evidence of wheezing rhonchi or rales CARDIOVASCULAR: Regular rate and rhythm noted there no murmurs rubs or gallops normal S1 normal S2. GASTROINTESTINAL: The abdomen is soft. Abdomen is nontender. MUSCULOSKELETAL/EXTREMITIES: There is no evidence of gross deformity full range of motion is noted in the hips and shoulders. SKIN: Skin was warm and dry. Trace pedal edema was noted bilaterally. NEUROLOGIC: Patient is awake alert and oriented x3. Speech was pressured. The patient was having significant word finding. She could say her name. She did recognize her daughter. She does appear to have a slight right-sided facial droop with forehead sparing. Horticultural Farmer strength was symmetric but diminished bilaterally. Patient was able to hold each leg off the bed for greater than 5 seconds. MEDICAL DECISION MAKING: The patient is an 86-year-old female who presented to the emergency department for an evaluation of acute strokelike symptoms. The patient was made a stroke alert although she was very close to the 4 and half hour window. The patient's symptoms did improve from the time she was evaluated by the market basket maker in the field to the time that she was presenting in the emergency department. I discussed the patient's laboratory and radiographic studies with her and her family members. I discussed her condition with the [facility] telestroke neurologist. The patient was reevaluated multiple times. The patient was not felt to be a good candidate for TN K. She appeared to be outside the 3-hour window and after she was evaluated by the telestroke annetta rologist the family as well as the neurologist felt the patient's symptoms were such that the risk would outweigh the benefits of IV thrombolytics. The patient was reevaluated and the patient was treated with IV antihypertensive medication. I discussed the patient's condition with the on-call [facility] hospitalist. Triage Nursing notes reviewed. Prior medical records reviewed Vital Signs: reviewed and remarkable for elevated blood pressure. Differential diagnosis: Infection, dehydration, metabolic abnormality, hypo/hyperglycemia, electrolyte disturbance, anemia, hypoxia, cardiac sources, intracerebral event, toxicologic, neurologic, as well as other pathologies. ER treatment provided: See below Diagnostics interpreted by me: ECG: EKG was obtained in the emergency department. My interpretation is sinus rhythm at 74 bpm. Right bundle branch block pattern was favored. There was no PVCs. This was compared to a tracing from November 29, 2017. No changes were not ed. Cardiac Monitoring: An order was placed for continuous cardiac monitoring. The monitor shows a rate of 66 bpm with sinus rhythm. Laboratory studies: As stated above and show below. Imaging studies: See below Consultation(s): I discussed this case with Dr. Ndiaye who is on-call for the [facility] hospitalist group. ED COURSE: Procedures: none Critical Care: I have personally spent greater than 45 minutes of critical care time in the direct management of this patient. This includes bedside care, interpretation of diagnostic studies, and testing, discussion with consultants, patient, and family members, and other required patient management activities. This 45 minutes is in excess of all separately billable procedures. Past Med/Surg History Medical History Anemia Bright red blood per rectum Cellulitis Cervical spinal stenosis Cervicalgia Chronic kidney disease, stage IV (severe) Chronic low back pain Depression Diabetic nephropathy Diabetic peripheral neuropathy associated with type 2 diabetes mellitus Dog bite Glaucoma Hyperlipidemia Lumbar facet joint syndrome Lumbar spondylosis Memory loss Mixed conductive and sensorineural hearing loss Nontoxic multinodular goiter Osteoporosis Retinal vein occlusion Subungual hematoma of finger Trochanteric bursitis of right hip Urinary incontinence Vitamin D deficiency Surgical History History of cataract surgery B/l EYES History of repair of rectocele History of repair of rotator cuff R SHOULDER History of total abdominal hysterectomy SECONDARY TO PROLAPSED UTERUS Family History Brother Bone cancer Father , @AGE 64 Cardiac disorder Family history of deafness or hearing loss Hypertension Myocardial infarction, Onset Age: 64 Mother Family history of deafness or hearing loss Pancreatic cancer Aunt Breast cancer Denies family history of Family history of bleeding disorder Ovarian cancer Prostate cancer Adverse anesthesia outcome Colorectal cancer Social History Smoking Status: Never smoker Second Hand Exposure: No; Hx Alcohol Use: No Hx Substance Use: No Preferred Language: Congolese Communication Ability: Effective Visual Impairment: No Limitations Hearing Ability: Hard of Hearing Clerical Supervisor Required: Yes Beliefs That Will Affect Care: None marital status: marital status details: HAS FOUR CHILDREN Current Living Situation: Spouse and Family Current Living Situation Comment: lives w/ spouse and grandson (age 25) current occupational status: 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[employer]; 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 How many Children do You have: 4 Other Information That Helps Us Care for You: No Feels Safe at Home: Yes Safety Concerns: Feels Safe At This Time Childhood Exposure to Second-Hand Smoke: Yes caffeine: No during the past year weight has: remained stable Dental Care, Regularly: Yes Physical Activity Frequency: Other Physical Activity Frequency Comment: LIMITED BY PHYSICAL CONDITION Seatbelt Use: always Sunscreen Use: No Assistive Devices: Cane, Denture - Upper, Glasses and Walker Allergies Allergies Allergy/AdvReac Type Severity Reaction Status Date / Time adhesive tape AdvReac Unknown SKIN Verified 01/22/22 15:00 IRRITATION bandaids AdvReac Unknown SKIN Uncoded 01/22/22 15:00 IRRITATION Home Meds Home Medications Medication Instructions Recorded Confirmed donepezil 5 mg tablet 5 mg PO HS 10/19/18 01/22/22 ferrous sulfate 325 mg (65 mg 325 mg PO DAILY 10/19/18 01/22/22 iron) tablet latanoprost 0.005 % eye drops 1 drp OPB HS 10/19/18 01/22/22 quetiapine 25 mg tablet 12.5 mg PO HS 10/19/18 01/22/22 ascorbic acid (vitamin C) 100 mg 300 mg PO DAILY 12/20/18 01/22/22 tablet omega-3 acid ethyl esters 1 gram 1 cap PO BID 02/17/20 01/22/22 capsule blood-glucose meter #1 ea 09/14/20 01/14/22 acetaminophen 500 mg capsule 1,000 mg PO BID PRN Pain 11/08/21 01/22/22 glimepiride 2 mg tablet 2 mg PO DAILY 12/19/21 01/22/22 vortioxetine 10 mg tablet 10 mg PO DAILY 01/14/22 01/22/22 (Trintellix) aspirin 81 mg tablet,delayed 81 mg PO DAILY 01/22/22 01/22/22 release cholecalciferol (vitamin D3) 25 50 mcg PO DAILY 01/22/22 01/22/22 mcg (1,000 unit) capsule (Vitamin D3) cyanocobalamin (vitamin B-12) 500 500 mcg PO DAILY 01/22/22 01/22/22 mcg lozenges (Vitamin B-12) duloxetine 20 mg capsule,delayed 20 mg PO DAILY 01/22/22 01/22/22 release erythromycin 5 mg/gram (0.5 %) eye See Rx Instructions .Route .COMPLEX 01/22/22 01/22/22 ointment insulin glargine 100 unit/mL (3 16 unit subcut HS 01/22/22 01/22/22 mL) subcutaneous pen (Lantus Solostar U-100 Insulin) nystatin 100,000 unit/gram topical 1 applic topical BID PRN NEEDED 01/22/22 01/22/22 cream FOR SKIN IRRITATION oxybutynin chloride 10 mg 10 mg PO QAM 01/22/22 01/22/22 tablet,extended release 24 hr prednisolone acetate 1 % eye 2 drp ophthalmic (eye) DAILY 01/22/22 01/22/22 drops,suspension valacyclovir 1 gram tablet 1,000 mg PO BID 01/22/22 01/22/22 Previous Rx's Medication Instructions Recorded BD Ultra-Fine Sheri Pen Needle 32 #100 ea 09/11/21 gauge x 5/32" (pen needle, diabetic) rosuvastatin 5 mg tablet 5 mg PO DAILY #90 tabs 01/03/22 fluticasone propionate 50 2 spray intranasal DAILY PRN nasal 01/14/22 mcg/actuation nasal congestion #16 grams spray,suspension (Flonase Allergy Relief) Results & Data (ED) Vital Signs Vital Signs - 24 hr 01/22/22 14:45 01/22/22 14:59 01/22/22 14:59 Temperature 36.7 C Temperature Source Oral Pulse Rate 73 80 Pulse Rate from SpO2 Sensor 84 Respiratory Rate 21 16 Respiratory Effort / Characteristics Non-Labored Spontaneous Respiratory Depth Normal Respiratory Pattern Regular Blood Pressure 187/96 H 187/96 H Blood Pressure Mean 126 126 Blood Pressure Position Sitting Pulse Oximetry 96 92 Oxygen Delivery Method Room Air Room Air Sepsis Recent Fever Within 48 Hours No Sepsis New/Unexplained Change in Mental Status N/A Sepsis Action Taken by Nursing No Action Required 01/22/22 15:00 01/22/22 15:01 01/22/22 15:01 Temperature Temperature Source Pulse Rate 73 73 Pulse Rate from SpO2 Sensor 73 73 Respiratory Rate 14 22 Respiratory Effort / Characteristics Respiratory Depth Respiratory Pattern Blood Pressure 194/94 H Blood Pressure Mean 127 Blood Pressure Position Pulse Oximetry 97 97 Oxygen Delivery Method Room Air Room Air Sepsis Recent Fever Within 48 Hours Sepsis New/Unexplained Change in Mental Status Sepsis Action Taken by Nursing 01/22/22 15:14 01/22/22 15:14 01/22/22 15:15 Temperature Temperature Source Pulse Rate 62 Pulse Rate from SpO2 Sensor 62 Respiratory Rate 15 Respiratory Effort / Characteristics Respiratory Depth Respiratory Pattern Blood Pressure 167/99 H 154/92 H Blood Pressure Mean 121 112 Blood Pressure Position Pulse Oximetry 97 Oxygen Delivery Method Room Air Sepsis Recent Fever Within 48 Hours Sepsis New/Unexplained Change in Mental Status Sepsis Action Taken by Nursing 01/22/22 15:15 01/22/22 15:30 01/22/22 15:30 Temperature Temperature Source Pulse Rate 66 60 Pulse Rate from SpO2 Sensor 66 60 Respiratory Rate 15 16 Respiratory Effort / Characteristics Respiratory Depth Respiratory Pattern Blood Pressure 148/96 H Blood Pressure Mean 113 Blood Pressure Position Pulse Oximetry 95 97 Oxygen Delivery Method Room Air Room Air Sepsis Recent Fever Within 48 Hours Sepsis New/Unexplained Change in Mental Status Sepsis Action Taken by Longterm Medications Current Medication List: was personally reviewed by me Laboratory Data Attestation: I reviewed the patient's lab results. Result diagrams: 01/23/22 07:41 01/23/22 07:41 Lab Results 01/22/22 01/22/22 01/22/22 Range/Units 15:00 15:00 15:00 WBC 4.54 L (4.8-10.8) K/ul RBC 3.13 L (3.93-5.22) M/uL Hgb 9.0 L (12.0-16.0) g/dl Hct 28.0 L (34.1-44.9) % MCV 89.5 (80.0-100.0) fL MCH 28.8 (25.0-34.0) pg MCHC 32.1 (32.0-36.0) g/dL RDW Std Deviation 46.1 (36.4-46.3) fL RDW Coeff of Mari 14.3 (11.5-14.5) % Plt Count 179 (130-400) K/uL MPV 10.9 (9.4-12.3) fL Immature Gran % (Auto) 0.7 % Neut % (Auto) 55.5 % Lymph % (Auto) 26.4 % [place] % (Auto) 11.0 % Eos % (Auto) 5.7 % Baso % (Auto) 0.7 % Neut # (Auto) 2.52 (1.4-6.5) K/uL Lymph # (Auto) 1.20 (1.2-3.4) K/uL [place] # (Auto) 0.50 (0.24-0.82) K/uL Eos # (Auto) 0.26 (0-0.50) K/uL Baso # (Auto) 0.03 (0-0.2) K/uL Immature Gran # (Auto) 0.03 H (0.00-0.02) K/uL PT 11.3 (9.0-12.0) Seconds INR 1.1 (0.9-1.1) APTT 23.1 (21.0-31.0) Seconds PTT Ratio 0.8 Sodium 136 (136-145) mmol/L Potassium 4.2 (3.5-5.1) mmol/L Chloride 104 (98-107) mmol/L Carbon Dioxide 27 (21-32) mmol/L Anion Gap 5 (3-11) BUN 27 H (6-23) mg/dl Creatinine 1.43 H (0.6-1.2) mg/dl Est Cr Clr Drug Dosing 28.3 ml/min Est GFR ( Amer) 38.1 ml/min Est GFR (Non-Af Amer) 32.8 ml/min BUN/Creatinine Ratio 18.9 (10-20) Glucose 117 H (70-99(Fasting)) mg/dl Calcium 9.2 (8.5-10.1) mg/dl Magnesium 1.8 (1.7-2.4) mg/dl Total Bilirubin 0.3 (0.2-1.0) mg/dl AST 19 (13-39) U/L ALT 16 (7-52) U/L Alkaline Phosphatase 57 (34-104) U/L Troponin I High Sens 15.7 H (0-14) pg/ml Total Protein 5.9 L (6.0-8.3) gm/dl Albumin 3.6 (3.4-5.0) gm/dl Globulin 2.3 L (2.5-4.0) gm/dl Albumin/Globulin Ratio 1.6 (0.9-2) Administered Medications Acetaminophen (Acetaminophen 500 Mg Tab) 1,000 mg PO BID PRN PRN Reason: Pain Stop: 02/21/22 18:40 Last Admin: 01/23/22 11:25 Dose: 1,000 mg Documented By: Admin: 01/22/22 20:46 Dose: 1,000 mg Documented By: YAZ Ascorbic Acid (Ascorbic Acid 500 Mg Tab) 500 mg PO DAILY FANNIE Stop: 02/22/22 08:59 Last Admin: 01/23/22 07:58 Dose: 500 mg Documented By: CC Clopidogrel Bisulfate (Clopidogrel Bisulfate 75 Mg Tab) 75 mg PO QAM FANNIE Stop: 02/22/22 08:59 Last Admin: 01/23/22 07:58 Dose: 75 mg Documented By: CC Cyanocobalamin (Cyanocobalamin (B-12) 500 Mcg Tablet) 500 mcg PO DAILY FANNIE Stop: 02/22/22 08:59 Last Admin: 01/23/22 07:59 Dose: 500 mcg Documented By: LOIS Donepezil HCl (Donepezil Hcl 5 Mg Tab) 5 mg PO HS FANNIE Stop: 02/21/22 20:59 Last Admin: 01/22/22 20:44 Dose: 5 mg Documented By: YAZ Duloxetine HCl (Duloxetine Hcl 20 Mg Cap) 20 mg PO DAILY FANNIE Stop: 02/22/22 08:59 Last Admin: 01/23/22 07:59 Dose: 20 mg Documented By: LOIS Erythromycin (Erythromycin Op Oint 5 Mg/Gm 3.5 Gm Tube) 1 appln OP DAILY@1000 FANNIE Stop: 01/24/22 23:59 Last Admin: 01/23/22 10:12 Dose: Not Given Documented By: LOIS Ferrous Sulfate (Ferrous Sulfate 325 Mg Tab) 325 mg PO DAILY FANNIE Stop: 02/22/22 08:59 Last Admin: 01/23/22 07:58 Dose: 325 mg Documented By: LOIS Fish Oil ([place]-3 (Purified Fish Oil) 1 Gm Cap) 1 gm PO BID FANNIE Stop: 02/21/22 20:59 Last Admin: 01/23/22 08:00 Dose: 1 gm Documented By: Admin: 01/22/22 20:42 Dose: 1 gm Documented By: YAZ Sodium Chloride (Nss 1000ml) 1,000 mls @ 80 mls/hr IV .[id number] FANNIE Stop: 02/22/22 09:14 Last Admin: 01/23/22 10:12 Dose: 80 mls/hr Documented By: LOIS Insulin Aspart (Insulin Aspart Per Unit) 0 units SC ACHS FANNIE Stop: 02/21/22 20:59 Last Admin: 01/23/22 17:14 Dose: 2 units Documented By: LOIS Co-signed By: STEFFI Admin: 01/23/22 12:08 Dose: 4 units Documented By: LOIS Co-signed By: SHAI Admin: 01/23/22 08:03 Dose: Not Given Documented By: Admin: 01/22/22 20:43 Dose: Not Given Documented By: YAZ Insulin Glargine (Lantus Per Unit Charge) 16 units SQ [facility] Stop: 02/21/22 20:59 Last Admin: 01/22/22 20:42 Dose: Not Given Documented By: YAZ Latanoprost (Latanoprost 0.005% Op Soln 2.5 Ml Btl) 1 drops OPB [facility] Stop: 02/21/22 20:59 Last Admin: 01/22/22 20:43 Dose: 1 drops Documented By: YAZ Lorazepam (Lorazepam 0.5 Mg Tab) 0.5 mg PO TODAY@0600 [facility] Stop: 01/23/22 23:59 Last Admin: 01/23/22 07:58 Dose: 0.5 mg Documented By: LOIS Miscellaneous (Trintellix- Order Awaiting Action) 1 each N/A QS [facility] Stop: 02/22/22 00:00 Last Admin: 01/23/22 15:22 Dose: Not Given Documented By: Admin: 01/23/22 08:00 Dose: Not Given Documented By: Admin: 01/23/22 01:08 Dose: Not Given Documented By: YAZ Oxybutynin Chloride (Oxybutynin Chloride Xl 5 Mg Tabcr) 10 mg PO [facility]; Protocol Stop: 02/22/22 08:59 Last Admin: 01/23/22 07:59 Dose: 10 mg Documented By: LOIS Prednisolone Acetate (Prednisolone Acetate 1% Op Susp 5 Ml Btl) 2 drops OP DAILY [facility] Stop: 01/27/22 23:59 Last Admin: 01/23/22 08:00 Dose: 2 drops Documented By: LOIS Quetiapine Fumarate (Quetiapine Fumarate 25 Mg Tablet) 12.5 mg PO [facility] Stop: 02/21/22 20:59 Last Admin: 01/22/22 20:44 Dose: 12.5 mg Documented By: YAZ Rosuvastatin Calcium (Rosuvastatin Calcium 20 Mg Tab) 20 mg PO QAM FANNIE Stop: 02/22/22 08:59 Last Admin: 01/23/22 07:58 Dose: 20 mg Documented By: CC Vitamin D (Cholecalciferol 1,000 Units 25 Mcg Tab) 2,000 units PO DAILY FANNIE Stop: 02/22/22 08:59 Last Admin: 01/23/22 08:00 Dose: 2,000 units Documented By: LOIS Discontinued Medications Ioversol (Optiray 300 500ml) 104 ml IV ONCE ONE Stop: 01/22/22 14:48 Last Admin: 01/22/22 14:53 Dose: 104 ml Documented By: DYLON Labetalol HCl (Labetalol Hcl Iv 5 Mg/Ml 20ml) 10 mg IV NOW STA Stop: 01/22/22 15:03 Last Admin: 01/22/22 15:05 Dose: 10 mg Documented By: ANGELICA Co-signed By: ANGELICA(2) Ondansetron HCl (Ondansetron Inj 2 Mg/Ml 2 Ml Vial) Confirm Administered Dose 4 mg .ROUTE .STK-MED ONE Stop: 01/22/22 14:47 Last Admin: 01/22/22 14:50 Dose: 4 mg Documented By: ANGELICA Valacyclovir HCl (Valacyclovir Hcl 500 Mg Tablet) 1,000 mg PO BID FANNIE Stop: 01/27/22 23:59 Last Admin: 01/23/22 07:59 Dose: 1,000 mg Documented By: Admin: 01/22/22 20:41 Dose: 1,000 mg Documented By: [facility] Imaging Data Radiologist's Impression: Chest X-Ray 01/22/22 14:38 XR chest 1V portable CLINICAL HISTORY: Stroke Like Symptoms. pat talking to stroke cart TECHNIQUE: Single frontal radiograph of the chest was obtained. Comparison: Comparison is made to chest radiograph 11/29/2017 FINDINGS: No lines and tubes are seen. Cardiomegaly is noted. Calcification of the aortic arch is noted. Lungs are mildly underinflated with bibasilar atelectasis. No evidence of pleural effusion or pneumothorax. IMPRESSION: No acute chest disease. ACT 112: Negative or not required by law. Electronically signed by: Maurice Mejía M.D. 01/22/2022 3:[address] 01/22/22 14:38 CT angio head w con, CT angio neck with con, CT head/brain wo con CLINICAL HISTORY: Stroke Like Symptoms TECHNIQUE: Contiguous axial CT images of the head were acquired from the base of the skull to the vertex without intravenous contrast administration. CT angiography of the head and neck was performed following intravenous administration of iodinated contrast. Coronal and sagittal MIPS were obtained from the axial data set and were submitted for review. Automated dose lowering techniques and/or adjustment according to patient size were utilized for this examination. All measurements were calculated based on NASCET criteria. CT DOSE: 994.55 mGy.cm Comparison: None available at the time of this dictation. FINDINGS: Exam is somewhat limited by patient motion. CT head: Areas of decreased attenuation are present in the periventricular and subcortical white matter bilaterally consistent with small vessel ischemic disease. Generalized cerebral atrophy with commensurate enlargement of the ventricles, sulci, and cisterns is also present. There is no acute intracranial hemorrhage or evidence of acute territorial infarction. No shift of the midline structures, mass effect, or extra-axial abnormalities are shown. Atherosclerotic calcifications are present in the intracranial segments of the internal carotid arteries. Heterogeneity of the thyroid is seen without discrete nodules. 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 CTA Neck: The left common carotid artery shares common origin with the innominate artery. There is no significant atherosclerotic plaque in the aortic arch or the origins of the innominate, left common carotid, and left subclavian arteries. The common carotid, external carotid, cervical segments of the internal carotid arteries, and the cervical segments of the vertebral arteries are patent without hemodynamically significant stenosis. The left vertebral artery is dominant. CTA Head: The anterior and posterior cerebral circulations are patent. No hemodynamically significant stenosis, aneurysm, dissection, or arteriovenous malformation is shown. origin of the bilateral posterior cerebral arteries noted. IMPRESSION: 1. No acute intracranial hemorrhage, evidence of acute territorial infarction, or other acute intracranial disease process. 2. No occlusion, hemodynamically significant stenosis, or dissection in the major cervical arteries. 3. No occlusion, hemodynamically significant stenosis, aneurysm, dissection, or arteriovenous malformation in the major intracranial arteries. Assessment of stenosis of the internal carotid arteries is based on NASCET criteria. ACT 112: Negative or not required by law. Electronically signed by: Maurice Mejía M.D. 01/22/2022 3:11 PM Head CTA 01/22/22 14:38 CT angio head w con, CT angio neck with con, CT head/brain wo con CLINICAL HISTORY: Stroke Like Symptoms TECHNIQUE: Contiguous axial CT images of the head were acquired from the base of the skull to the vertex without intravenous contrast administration. CT angiography of the head and neck was performed following intravenous admini stration of iodinated contrast. Coronal and sagittal MIPS were obtained from the axial data set and were submitted for review. Automated dose lowering techniques and/or adjustment according to patient size were utilized for this examination. All measurements were calculated based on NASCET criteria. CT DOSE: 994.55 mGy.cm Comparison: None available at the time of this dictation. FINDINGS: Exam is somewhat limited by patient motion. CT head: Areas of decreased attenuation are present in the periventricular and subcortical white matter bilaterally consistent with small vessel ischemic disease. Generalized cerebral atrophy with commensurate enlargement of the v entricles, sulci, and cisterns is also present. There is no acute intracranial hemorrhage or evidence of acute territorial infarction. No shift of the midline structures, mass effect, or extra-axial abnormalities are shown. Atherosclerotic calcifications are present in the intracranial segments of the internal carotid arteries. Heterogeneity of the thyroid is seen without discrete nodules. 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 CTA Neck: The left common carotid artery shares common origin with the innominate artery. There is no significant atherosclerotic plaque in the aortic arch or the origins of the innominate, left common carotid, and left subclavian arteries. The common carotid, external carotid, cervical segments of the internal carotid arteries, and the cervical segments of the vertebral arteries are patent without hemodynamically significant stenosis. The left vertebral artery is dominant. CTA Head: The anterior and posterior cerebral circulations are patent. No hemodynamically significant stenosis, aneurysm, dissection, or arteriovenous malformation is shown. origin of the bilateral posterior cerebral arteries noted. IMPRESSION: 1. No acute intracranial hemorrhage, evidence of acute territorial infarction, or other acute intracranial disease process. 2. No occlusion, hemodynamically significant stenosis, or dissection in the major cervical arteries. 3. No occlusion, hemodynamically significant stenosis, aneurysm, dissection, or arteriovenous malformation in the major intracranial arteries. Assessment of stenosis of the internal carotid arteries is based on NASCET criteria. ACT 112: Negative or not required by law. Electronically signed by: Maurice Mejía M.D. 01/22/2022 3:11 PM Neck CTA 01/22/22 14:38 CT angio head w con, CT angio neck with con, CT head/brain wo con CLINICAL HISTORY: Stroke Like Symptoms TECHNIQUE: Contiguous axial CT images of the head were acquired from the base of the skull to the vertex without intravenous contrast administration. CT angiog landon of the head and neck was performed following intravenous administration of iodinated contrast. Coronal and sagittal MIPS were obtained from the axial data set and were submitted for review. Automated dose lowering techniques and/or adjustment according to patient size were utilized for this examination. All measurements were calculated based on NASCET criteria. CT DOSE: 994.55 mGy.cm Comparison: None available at the time of this dictation. FINDINGS: Exam is somewhat limited by patient motion. CT head: Areas of decreased attenuation are present in the periventricular and subcortical white matter bilaterally consistent with small vessel ischemic disease. Generalized cerebral atrophy with commensurate enlargement of the ventricles, sulci, and cisterns is also present. There is no acute intracranial hemorrhage or evidence of acute territorial infarction. No shift of the midline structures, mass effect, or extra-axial abnormalities are shown. Athero sclerotic calcifications are present in the intracranial segments of the internal carotid arteries. Heterogeneity of the thyroid is seen without discrete nodules. 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 CTA Neck: The left common carotid artery shares common origin with the innominate artery. There is no significant atherosclerotic plaque in the aortic arch or the origins of the innominate, left common carotid, and left subclavian arteries. The common carotid, external carotid, cervical segments of the internal carotid arteries, and the cervical segments of the vertebral arteries are patent without hemodynamically significant stenosis. The left vertebral artery is dominant. CTA Head: The anterior and posterior cerebral circulations are patent. No hemodynamically significant stenosis, aneurysm, dissection, or arteriovenous malformation is shown. origin of the bilateral posterior cerebral arteries noted. IMPRESSION: 1. No acute intracranial hemorrhage, evidence of acute territorial infarction, or other acute intracranial disease process. 2. No occlusion, hemodynamically significant stenosis, or dissection in the major cervical arteries. 3. No occlusion, hemodynamically significant stenosis, aneurysm, dissection, or arteriovenous malformation in the major intracranial arteries. Assessment of stenosis of the internal carotid arteries is based on NASCET criteria. ACT 112: Negative or not required by law. Electronically signed by: Maurice Mejía M.D. 01/22/2022 3:11 PM Discharge Plan Visit Data Chief Complaint: Stroke Alert ED Provider: Jim Mckenzie Discharge Problem: Acute CVA (cerebrovascular accident), Acute ischemic stroke, Anemia Patient Disposition: Admitted As Inpatient Discharge Instructions Interventions: ED Discharge Assessment Last Done: 01/22/22 17:31 : Anemia Qualifiers: Anemia type: unspecified type Qualified Code(s): D64.9 - Anemia, unspecified
[2022-01-22 15:10] LABS: Basophils # (auto) 0.03 K/uL (0-0.2); Basophils % (auto) 0.7 %; Eosinophils # (auto) 0.26 K/uL (0-0.50); Eosinophils % (auto) 5.7 %; Immature Granulocytes # (auto) 0.03 K/uL (0.00-0.02); Immature Granulocytes % (auto) 0.7 %; Lymphocytes % (auto) 26.4 %; Mean Corpuscular Hemoglobin 28.8 pg (25.0-34.0); Mean Corpuscular Hgb Conc 32.1 g/dL (32.0-36.0); Mean Corpuscular Volume 89.5 fL (80.0-100.0); Mean Platelet Volume 10.9 fL (9.4-12.3); Neutrophils # (auto) 2.52 K/uL (1.4-6.5); Neutrophils % (auto) 55.5 %; Platelet Count 179 K/uL (130-400); RDW Coefficient of Variation 14.3 % (11.5-14.5); RDW Standard Deviation 46.1 fL (36.4-46.3); Red Blood Count 3.13 M/uL (3.93-5.22); White Blood Count 4.54 K/ul (4.8-10.8)
--- NOTE | 2022-01-22 15:13 | CT Scan Report ---
CT angio head w con, CT angio neck with con, CT head/brain wo con CLINICAL HISTORY: Stroke Like Symptoms TECHNIQUE: Contiguous axial CT images of the head were acquired from the base of the skull to the kiesha terri without intravenous contrast administration. CT angiography of the head and neck was performed f ollowing intravenous administration of iodinated contrast. Coronal and sagittal MIPS were obtained fr om the axial data set and were submitted for review. Automated dose lowering techniques and/or adjus tment according to patient size were utilized for this examination. All measurements were calculated based on NASCET criteria. CT DOSE: 994.55 mGy.cm Comparison: None available at the time of this dictation. FINDINGS: Exam is somewhat limited by patient motion. CT head: Areas of decreased attenuation are present in the periventricular and subcortical white shaniqua er bilaterally consistent with small vessel ischemic disease. Generalized cerebral atrophy with comme nsurate enlargement of the ventricles, sulci, and cisterns is also present. There is no acute intracr anial hemorrhage or evidence of acute territorial infarction. No shift of the midline structures, mas s effect, or extra-axial abnormalities are shown. Atherosclerotic calcifications are present in the intracranial segments of the internal carotid arteries. Heterogeneity of the thyroid is seen without discrete nodules. A 3 cm lipoma is seen on the left neck . CTA Neck: The left common carotid artery shares common origin with the innominate artery. There is n o significant atherosclerotic plaque in the aortic arch or the origins of the innominate, left common carotid, and left subclavian arteries. The common carotid, external carotid, cervical segments of the internal carotid arteries, and the cervical segments of the vertebral arteries are patent without hemodynamically significant stenosis. The left vertebral artery is dominant. CTA Head: The anterior and posterior cerebral circulations are patent. No hemodynamically significan t stenosis, aneurysm, dissection, or arteriovenous malformation is shown. origin of the bilater al posterior cerebral arteries noted. IMPRESSION: 1. No acute intracranial hemorrhage, evidence of acute territorial infarction, or other acute intrac ranial disease process. 2. No occlusion, hemodynamically significant stenosis, or dissection in the major cervical arteries. 3. No occlusion, hemodynamically significant stenosis, aneurysm, dissection, or arteriovenous malfor mation in the major intracranial arteries. Assessment of stenosis of the internal carotid arteries is based on NASCET criteria. ACT 112: Negative or not required by law. Electronically signed by: Maurice Mejía M.D. 01/22/2022 3:11 PM
[2022-01-22 15:21] LABS: INR 1.1 (0.9-1.1); Partial Thromboplastin Ratio 0.8; Partial Thromboplastin Time 23.1 Seconds (21.0-31.0); Prothrombin Time 11.3 Seconds (9.0-12.0)
[2022-01-22 15:32] LABS: Albumin Globulin Ratio 1.6 (0.9-2); Albumin Level 3.6 gm/dl (3.4-5.0); BUN Creatinine Ratio 18.9 (10-20); Bilirubin,Total 0.3 mg/dl (0.2-1.0); Calcium 9.2 mg/dl (8.5-10.1); Creatinine Clr Calc Pharmacy 28.3 ml/min; Est GFR (African American) 38.1 ml/min; Est GFR (Non-African American) 32.8 ml/min; Globulin 2.3 gm/dl (2.5-4.0); Magnesium 1.8 mg/dl (1.7-2.4); Potassium 4.2 mmol/L (3.5-5.1); Total Protein 5.9 gm/dl (6.0-8.3)
[2022-01-22 15:35] LABS: Troponin I High Sensitivity 15.7 pg/ml (0-14)
--- NOTE | 2022-01-22 15:43 | XRay Report ---
XR chest 1V portable CLINICAL HISTORY: Stroke Like Symptoms. pat talking to stroke cart TECHNIQUE: Single frontal radiograph of the chest was obtained. Comparison: Comparison is made to chest radiograph 11/29/2017 FINDINGS: No lines and tubes are seen. Cardiomegaly is noted. Calcification of the aortic arch is noted. Lungs are mildly underinflated with bibasilar atelectasis. No evidence of pleural effusion or pneumothorax. IMPRESSION: No acute chest disease. ACT 112: Negative or not required by law. Electronically signed by: Maurice Mejía M.D. 01/22/2022 3:42 PM
--- NOTE | 2022-01-22 15:46 | History & Physical Report ---
Date of Service January 22, 2022 Assessment & Plan (1) TIA (transient ischemic attack): Plan: - Reported right sided facial droop, b/l shakiness, slurred speech, LKW 10 AM today, ambulance called at 1330, patient symptoms improved upon arrival and continuing to do so throughout the day. - Telestroke consulted as patient was made a stroke alert, recommend since he symptoms are imrpviong and she is just over 4.5 hour time limit that she not receive TNKase. - CT head, CTA head/neck: 1. No acute intracranial hemorrhage, evidence of acute territorial infarction, or other acute intracranial disease process. 2. No occlusion, hemodynamically significant stenosis, or dissection in the major cervical arteries. 3. No occlusion, hemodynamically significant stenosis, aneurysm, dissection, or arteriovenous malformation in the major intracranial arteries. - MRI, routine, tomorrow. - Echo in a.m. - CBC, BMP, HbA1c, PT/INR, lipid panel in a.m. - N.p.o. for now. - PT, OT, ST to evaluate in a.m. - Telemetry for 24 hours, evaluate for episodes of atrial fibrillation. - Already on aspirin, will switch to Plavix. - Neuro consulted, appreciate their assistance and recommendations. (2) Elevated troponin: Plan: - Mildly elevated 15, EKg without any acute changes, ST r T wave changes, patient without angina or anginal equivalent. - Likely chronically elevated in setting of CKD, will follow nishant while admitted. 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 Continue Lantus 16 units HS, with accuchecks ACHS and SSI. - A1c 7.7% last month. - DM2 diet when cleared for diet. (4) Chronic kidney disease, stage IV (severe): Plan: - Cr 1.43, stable at baseline. - Avoid nephrotoxins, renally dose as able. - Follow on AM BMP. (5) Diabetic nephropathy: Plan: - Continue Cymbalta. (6) Hyperlipidemia: Plan: - Continue statin, will increase rosuvastatin 5 mg --> 20 mg, further changes pending lipid panel in AM. (7) Urinary incontinence: Plan: - Continue oxybutynin. (8) Vitamin D deficiency: Plan: - Continue supplementation. (9) Glaucoma: Plan: - Continue eye drops. (10) Depression: Plan: - Continue Trintellix. (11) Dementia: Plan: - Continue Seroquel HS, donepezil HS. Plan - OBS to med/tele. - SCDs for VTE ppx,. - Full Code. History of Present Illness Chief Complaint: slurred speech, tremors, since this morning Primary Care Provider: Sophie Murdock DO Keren Hull is an 86 y/o female with PMH significant for DM2 and nephropathy, CKD, iron deficiency anemia, dementia, hyperlipidemia, and depression who presented today as a stroke alert. Patient woke up around 8 AM feeling normal, and then around 10 AM, patient's speech seemed off to as she had difficulty getting her words out speech and it was slurred. He also notices she was also tremulous in her upper extremities. called with her daughter, who was able to arrive them at 1 PM and noted that her mother was very shaky and speech was coming out very slowly, which is not her baseline. EMS was called, and at their arrival they noticed a right-sided facial droop as well as previously stated symptoms. Patient confirms the above, and also states that she had a headache all throughout her head, previously severe as a 56, now 23. Seems to be getting better on its own. She was apparently nauseous prior to arrival, but does not complain of any nausea and vomiting during my visit. He did take all her morning medications and has been compliant with these. She has history of diabetes and takes 16 units of Lantus at night, however her glucose was checked in the field and was normal. No previous history of strokes. No other complaints such as chest pain, shortness of breath, palpitations, extremity paralysis or numbness or tingling. Head CT, as well as head and neck CTA were unremarkable. At the time of visit, patient is still having slow pH, but it is not slurred and logical. She is still tremulous, and both upper extremities but is without any weakness or numbness. Labs are significant for leukopenia, which seems to be for patient, as well as hemoglobin of 9.0, last checked 1 year ago was 11.5. Kidney function at baseline, glucose 117, no electrolyte abnormalities. Troponin very mildly elevated at 15. Allergies Allergy/AdvReac Type Severity Reaction Status Date / Time adhesive tape AdvReac Unknown SKIN Verified 01/22/22 15:00 IRRITATION bandaids AdvReac Unknown SKIN Uncoded 01/22/22 15:00 IRRITATION Home Medications Medication Instructions Recorded Confirmed Type donepezil 5 mg tablet 5 mg PO HS 10/19/18 01/22/22 History ferrous sulfate 325 mg (65 mg 325 mg PO DAILY 10/19/18 01/22/22 History iron) tablet latanoprost 0.005 % eye drops 1 drp OPB HS 10/19/18 01/22/22 History quetiapine 25 mg tablet 12.5 mg PO HS 10/19/18 01/22/22 History ascorbic acid (vitamin C) 100 mg 300 mg PO DAILY 12/20/18 01/22/22 History tablet omega-3 acid ethyl esters 1 gram 1 cap PO BID 02/17/20 01/22/22 History capsule blood-glucose meter #1 ea 09/14/20 01/14/22 History BD Ultra-Fine Sheri Pen Needle 32 #100 ea 09/11/21 01/14/22 Rx gauge x 5/32" (pen needle, diabetic) acetaminophen 500 mg capsule 1,000 mg PO BID PRN Pain 11/08/21 01/22/22 History glimepiride 2 mg tablet 2 mg PO DAILY 12/19/21 01/22/22 History rosuvastatin 5 mg tablet 5 mg PO DAILY #90 tabs 01/03/22 01/22/22 Rx fluticasone propionate 50 2 spray intranasal DAILY PRN nasal 01/14/22 01/22/22 Rx mcg/actuation nasal congestion #16 grams spray,suspension (Flonase Allergy Relief) vortioxetine 10 mg tablet 10 mg PO DAILY 01/14/22 01/22/22 History (Trintellix) aspirin 81 mg tablet,delayed 81 mg PO DAILY 01/22/22 01/22/22 History release cholecalciferol (vitamin D3) 25 50 mcg PO DAILY 01/22/22 01/22/22 History mcg (1,000 unit) capsule (Vitamin D3) cyanocobalamin (vitamin B-12) 500 500 mcg PO DAILY 01/22/22 01/22/22 History mcg lozenges (Vitamin B-12) duloxetine 20 mg capsule,delayed 20 mg PO DAILY 01/22/22 01/22/22 History release erythromycin 5 mg/gram (0.5 %) eye See Rx Instructions .Route .COMPLEX 01/22/22 01/22/22 History ointment insulin glargine 100 unit/mL (3 16 unit subcut HS 01/22/22 01/22/22 History mL) subcutaneous pen (Lantus Solostar U-100 Insulin) nystatin 100,000 unit/gram topical 1 applic topical BID PRN NEEDED 01/22/22 01/22/22 History cream FOR SKIN IRRITATION oxybutynin chloride 10 mg 10 mg PO QAM 01/22/22 01/22/22 History tablet,extended release 24 hr prednisolone acetate 1 % eye 2 drp ophthalmic (eye) DAILY 01/22/22 01/22/22 History drops,suspension valacyclovir 1 gram tablet 1,000 mg PO BID 01/22/22 01/22/22 History Past Med/Surg History Medical History (Updated 01/22/22 @ 21:58 by Jim Mckenzie, DO) Anemia Bright red blood per rectum Cellulitis Cervical spinal stenosis Cervicalgia Chronic kidney disease, stage IV (severe) Chronic low back pain Depression Diabetic nephropathy Diabetic peripheral neuropathy associated with type 2 diabetes mellitus Dog bite Glaucoma Hyperlipidemia Lumbar facet joint syndrome Lumbar spondylosis Memory loss Mixed conductive and sensorineural hearing loss Nontoxic multinodular goiter Osteoporosis Retinal vein occlusion Subungual hematoma of finger Trochanteric bursitis of right hip Urinary incontinence Vitamin D deficiency Surgical History History of cataract surgery B/l EYES History of repair of rectocele History of repair of rotator cuff R SHOULDER History of total abdominal hysterectomy SECONDARY TO PROLAPSED UTERUS Family History Brother Bone cancer Father , @AGE 64 Cardiac disorder Family history of deafness or hearing loss Hypertension Myocardial infarction, Onset Age: 64 Mother Family history of deafness or hearing loss Pancreatic cancer Aunt Breast cancer Denies family history of Family history of bleeding disorder Ovarian cancer Prostate cancer Adverse anesthesia outcome Colorectal cancer Social History Smoking Status: Never smoker Second Hand Exposure: No; Hx Alcohol Use: No Hx Substance Use: No Preferred Language: Persian Communication Ability: Effective Visual Impairment: No Limitations Hearing Ability: Hard of Hearing 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 Beliefs That Will Affect Care: None marital status: marital status details: HAS FOUR CHILDREN Current Living Situation: Spouse and Family Current Living Situation Comment: lives w/ spouse and grandson (age 25) current occupational status: 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[employer]; 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 How many Children do You have: 4 Other Information That Helps Us Care for You: No Feels Safe at Home: Yes Safety Concerns: Feels Safe At This Time Childhood Exposure to Second-Hand Smoke: Yes caffeine: No during the past year weight has: remained stable Dental Care, Regularly: Yes Physical Activity Frequency: Other Physical Activity Frequency Comment: LIMITED BY PHYSICAL CONDITION Seatbelt Use: always Sunscreen Use: No Assistive Devices: Cane, Denture - Upper, Glasses and Walker Review of Systems Review of Systems: Constitutional: No fever/chills, weakness, fatigue, myalgias, anorexia, night sweats Eyes: No diplopia, no worsening or blurred vision ENT: normal hearing, no trouble swallowing Respiratory: No cough, sputum, dyspnea at rest or on exertion Cardiovascular: No chest pain, tightness or palpitations Abdomen: No pain, nausea, vomiting, diarrhea or constipation : Denies dysuria, hematuria, increased urgency/frequency, urinary retention Musculoskeletal: No joint pain, calf pain, swelling Neurologic: slow, slurred speech since 10 am with upper arm shakiness; No weakness, numbness/tingling, or balance problems Psychiatric: No anxiety or depression Skin: No rash or itch Physical Exam Physical Exam: General: awake, alert, no apparent distress Head: Normocephalic, atraumatic ENT: headache prior to arrival now resolving; PERRL, EOMI, no pharyngeal exudate, mucous membranes moist Chest: Clear to auscultation, on room air, no adventitious breath sounds Cardiac: Regular rate and rhythm, no murmur, no JVD, normal peripheral pulses, good capillary refill Abdominal: NABS x 4 quadrants, soft, nontender to palpation, no rebound, guarding or tenderness Extremities: Normal inspection, no peripheral edema or erythema, calfs nontender to palpation Psych: Normal mood and affect Neuro: slow but logical speech, b/l UEs are tremulous, no facial droop, weakness, numbness/tingling, or balance problems, AAO x 3, strength intact bilaterally and rated 5/5, no motor deficits, speech is clear, no peripheral sensory deficits Skin: no rash or erythema Results & Data Results & Data ([facility]) Vital Signs (Past 12 Hours) Vital Signs Temp Pulse Resp BP Pulse Ox O2 Del Method 01/22/22 14:45 36.7 C 73 21 187/96 H 96 Room Air Laboratory Results Abnormal lab results 01/22/22 01/22/22 Range/Units 15:00 15:00 WBC 4.54 L (4.8-10.8) K/ul RBC 3.13 L (3.93-5.22) M/uL Hgb 9.0 L (12.0-16.0) g/dl Hct 28.0 L (34.1-44.9) % Immature Gran # (Auto) 0.03 H (0.00-0.02) K/uL BUN 27 H (6-23) mg/dl Creatinine 1.43 H (0.6-1.2) mg/dl Glucose 117 H (70-99(Fasting)) mg/dl Troponin I High Sens 15.7 H (0-14) pg/ml Total Protein 5.9 L (6.0-8.3) gm/dl Globulin 2.3 L (2.5-4.0) gm/dl Diagnostic Findings Chest X-Ray 01/22/22 14:38 XR chest 1V portable CLINICAL HISTORY: Stroke Like Symptoms. pat talking to stroke cart TECHNIQUE: Single frontal radiograph of the chest was obtained. Comparison: Comparison is made to chest radiograph 11/29/2017 FINDINGS: No lines and tubes are seen. Cardiomegaly is noted. Calcification of the aortic arch is noted. Lungs are mildly underinflated with bibasilar atelectasis. No evidence of pleural effusion or pneumothorax. IMPRESSION: No acute chest disease. ACT 112: Negative or not required by law. Electronically signed by: Maurice Mejía M.D. 01/22/2022 3:[address] 01/22/22 14:38 CT angio head w con, CT angio neck with con, CT head/brain wo con CLINICAL HISTORY: Stroke Like Symptoms TECHNIQUE: Contiguous axial CT images of the head were acquired from the base of the skull to the vertex without intravenous contrast administration. CT angiography of the head and neck was performed following intravenous administration of iodinated contrast. Coronal and sagittal MIPS were obtained from the axial data set and were submitted for review. Automated dose lowering techniques and/or adjustment according to patient size were utilized for this examination. All measurements were calculated based on NASCET criteria. CT DOSE: 994.55 mGy.cm Comparison: None available at the time of this dictation. FINDINGS: Exam is somewhat limited by patient motion. CT head: Areas of decreased attenuation are present in the periventricular and subcortical white matter bilaterally consistent with small vessel ischemic disease. Generalized cerebral atrophy with commensurate enlargement of the ventricles, sulci, and cisterns is also present. There is no acute intracranial hemorrhage or evidence of acute territorial infarction. No shift of the midline structures, mass effect, or extra-axial abnormalities are shown. Atherosclerotic calcifications are present in the intracranial segments of the internal carotid arteries. Heterogeneity of the thyroid is seen without discrete nodules. 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 CTA Neck: The left common carotid artery shares common origin with the innominate artery. There is no significant atherosclerotic plaque in the aortic arch or the origins of the innominate, left common carotid, and left subclavian arteries. The common carotid, external carotid, cervical segments of the internal carotid arteries, and the cervical segments of the vertebral arteries are patent without hemodynamically significant stenosis. The left vertebral artery is dominant. CTA Head: The anterior and posterior cerebral circulations are patent. No hemodynamically significant stenosis, aneurysm, dissection, or arteriovenous malformation is shown. origin of the bilateral posterior cerebral arteries noted. IMPRESSION: 1. No acute intracranial hemorrhage, evidence of acute territorial infarction, or other acute intracranial disease process. 2. No occlusion, hemodynamically significant stenosis, or dissection in the major cervical arteries. 3. No occlusion, hemodynamically significant stenosis, aneurysm, dissection, or arteriovenous malformation in the major intracranial arteries. Assessment of stenosis of the internal carotid arteries is based on NASCET criteria. ACT 112: Negative or not required by law. Electronically signed by: Maurice Mejía M.D. 01/22/2022 3:11 PM Head CTA 01/22/22 14:38 CT angio head w con, CT angio neck with con, CT head/brain wo con CLINICAL HISTORY: Stroke Like Symptoms TECHNIQUE: Contiguous axial CT images of the head were acquired from the base of the skull to the vertex without intravenous contrast administration. CT angiography of the head and neck was performed following intravenous administration of iodinated contrast. Coronal and sagittal MIPS were obtained from the axial data set and were submitted for review. Automated dose lowering techniques and/or adjustment according to patient size were utilized for this examination. All measurements were calculated based on NASCET criteria. CT DOSE: 994.55 mGy.cm Comparison: None available at the time of this dictation. FINDINGS: Exam is somewhat limited by patient motion. CT head: Areas of decreased attenuation are present in the periventricular and subcortical white matter bilaterally consistent with small vessel ischemic disease. Generalized cerebral atrophy with commensurate enlargement of the ventricles, sulci, and cisterns is also present. There is no acute intracranial hemorrhage or evidence of acute territorial infarction. No shift of the midline structures, mass effect, or extra-axial abnormalities are shown. Atherosclerotic calcifications are present in the intracranial segments of the internal carotid arteries. Heterogeneity of the thyroid is seen without discrete nodules. 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 CTA Neck: The left common carotid artery shares common origin with the innominate artery. There is no significant atherosclerotic plaque in the aortic arch or the origins of the innominate, left common carotid, and left subclavian arteries. The common carotid, external carotid, cervical segments of the internal carotid arteries, and the cervical segments of the vertebral arteries are patent without hemodynamically significant stenosis. The left vertebral artery is dominant. CTA Head: The anterior and posterior cerebral circulations are patent. No hemodynamically significant stenosis, aneurysm, dissection, or arteriovenous malformation is shown. origin of the bilateral posterior cerebral arteries noted. IMPRESSION: 1. No acute intracranial hemorrhage, evidence of acute territorial infarction, or other acute intracranial disease process. 2. No occlusion, hemodynamically significant stenosis, or dissection in the major cervical arteries. 3. No occlusion, hemodynamically significant stenosis, aneurysm, dissection, or arteriovenous malformation in the major intracranial arteries. Assessment of stenosis of the internal carotid arteries is based on NASCET criteria. ACT 112: Negative or not required by law. Electronically signed by: Maurice Mejía M.D. 01/22/2022 3:11 PM Neck CTA 01/22/22 14:38 CT angio head w con, CT angio neck with con, CT head/brain wo con CLINICAL HISTORY: Stroke Like Symptoms TECHNIQUE: Contiguous axial CT images of the head were acquired from the base of the skull to the vertex without intravenous contrast administration. CT angiography of the head and neck was performed following intravenous administration of iodinated contrast. Coronal and sagittal MIPS were obtained from the axial data set and were submitted for review. Automated dose lowering techniques and/or adjustment according to patient size were utilized for this examination. All measurements were calculated based on NASCET criteria. CT DOSE: 994.55 mGy.cm Comparison: None available at the time of this dictation. FINDINGS: Exam is somewhat limited by patient motion. CT head: Areas of decreased attenuation are present in the periventricular and subcortical white matter bilaterally consistent with small vessel ischemic disease. Generalized cerebral atrophy with commensurate enlargement of the ventricles, sulci, and cisterns is also present. There is no acute intracranial hemorrhage or evidence of acute territorial infarction. No shift of the midline structures, mass effect, or extra-axial abnormalities are shown. Atherosclerotic calcifications are present in the intracranial segments of the internal carotid arteries. Heterogeneity of the thyroid is seen without discrete nodules. 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 CTA Neck: The left common carotid artery shares common origin with the inn ominate artery. There is no significant atherosclerotic plaque in the aortic arch or the origins of the innominate, left common carotid, and left subclavian arteries. The common carotid, external carotid, cervical segments of the internal carotid arteries, and the cervical segments of the vertebral arteries are patent without hemodynamically significant stenosis. The left vertebral artery is dominant. CTA Head: The anterior and posterior cerebral circulations are patent. No hemodynamically significant stenosis, aneurysm, dissection, or arteriovenous malformation is shown. origin of the bilateral posterior cerebral arteries noted. IMPRESSION: 1. No acute intracranial hemorrhage, evidence of acute territorial infarction, or other acute intracranial disease process. 2. No occlusion, hemodynamically significant stenosis, or dissection in the major cervical arteries. 3. No occlusion, hemodynamically significant stenosis, aneurysm, dissection, or arteriovenous malformation in the major intracranial arteries. Assessment of stenosis of the internal carotid arteries is based on NASCET criteria. ACT 112: Negative or not required by law. Electronically signed by: Maurice Mejía M.D. 01/22/2022 3:11 PM ECG Additional Comments: Normal sinus rhythm Right bundle branch block Abnormal ECG When compared with ECG of 29-NOV-2017 18:31, No significant change Supervising Physician Co-Signing Physician Notes Patient seen and examined, chart reviewed, case discussed with Jeanine Ornelas PA-C and I agree with the assessment and plan as above except as otherwise noted Labs and images reviewed Patient presented with right-sided facial droop, hand drift, slurred speech Approximately 10 AM, seen by EMS at 1330, just over 4.5-hour time limit at ER assessment. Symptoms improving at ER assessment, discussed with neurology and TNKase was deferred. Recommended for stroke management evaluation overnight. Agree with stroke work-up as above. Symptoms improving on bedside evaluation. Right assessment director strength 4 -/5, ankle dorsiflexion/plantarflexion 4 -/5, sensation soft touch intact and symmetrical. Trace right facial droop. Continue antiplatelet/statin/BP control. PG Care Time/CCT Total # of Minutes Spent Total Time Spent with Patient: Total time spent is greater than 50% in coordination of care (as documented) at patient's floor/unit and/or counseling patient: Coding Level of Care Code INT OBSERVATION CARE 70M LVL 3 Diagnoses TIA (transient ischemic attack) G45.9 Elevated troponin R77.8 Type 2 diabetes mellitus with complication, with fpc current use of insulin pump E11.8; Z96.41 Chronic kidney disease, stage IV (severe) N18.4 Diabetic nephropathy E11.21 Hyperlipidemia E78.5 Urinary incontinence R32 Vitamin D deficiency E55.9 Glaucoma H40.9 Depression F32.9 Dementia F03.90
--- NOTE | 2022-01-22 16:32 | Electrocardiogram Report ---
Test Reason : Blood Pressure : / mmHG Vent. Rate : 074 BPM Atrial Rate : 074 BPM P-R Int : 000 ms QRS Dur : 124 ms QT Int : 398 ms P-R-T Axes : 000 -01 012 degrees QTc Int : 441 ms Poor data quality, interpretation may be adversely affected Normal sinus rhythm Right bundle branch block Abnormal ECG When compared with ECG of 29-NOV-2017 18:31, No significant change Confirmed by Jim Lubin ([id number]) on 01/22/2022 4:31:51 PM Referred By: Confirmed By:Jim Lubin
[2022-01-22] MEDS ORDERED: GLUCOSE 40% GEL 15 GM TUBE PO PRN (18:31)
[2022-01-22] MEDS ORDERED: NYSTATIN CR 15 GM TUBE EXT PRN (18:31)
[2022-01-22] MEDS ORDERED: GLUCAGON FOR INJ 1 MG VIAL SQ PRN (18:31)
[2022-01-22] MEDS ORDERED: DEXTROSE 50% 50 ML SYRINGE IV PRN (18:31)
[2022-01-22] MEDS ORDERED: FLUTICASONE PROPIONATE NA SPR 16 GM BTL PRN (18:31)
[2022-01-22] MEDS ORDERED: PHARMACIST DISCHARGE MED REC CONSULT PRN (18:31)
[2022-01-22] MEDS ORDERED: ONDANSETRON INJ 2 MG/ML 2 ML VIAL IV PRN (18:31)
[2022-01-22] MEDS ORDERED: POLYETHYLENE (MIRALAX) 17 GM PACK PO PRN (18:31)
[2022-01-22] MEDS ORDERED: GLUCOSE 10 TAB/TUBE PO PRN (18:31)
[2022-01-22] MEDS ORDERED: CARBOHYDRATES FOR HYPOGLYCEMIA PO PRN (18:31)
[2022-01-22] MEDS: valACYclovir HCL 500 MG TABLET PO SCH (20:41)
[2022-01-22] MEDS: OMEGA-3 (PURIFIED FISH OIL) 1 GM CAP PO SCH (20:42)
[2022-01-22] MEDS: LANTUS PER UNIT CHARGE SQ SCH (20:42)
[2022-01-22] MEDS: INSULIN ASPART PER UNIT SC SCH (20:43)
[2022-01-22] MEDS: LATANOPROST 0.005% OP SOLN 2.5 ML BTL OPB SCH (20:43)
[2022-01-22] MEDS: QUEtiapine FUMARATE 25 MG TABLET PO SCH (20:44)
[2022-01-22] MEDS: DONEPEZIL HCL 5 MG TAB PO SCH (20:44)
[2022-01-22] MEDS: ACETAMINOPHEN 500 MG TAB PO PRN (20:46)
[2022-01-23] MEDS ORDERED: LORazepam 0.5 MG TAB PO SCH (06:00)
[2022-01-23 07:57] LABS: Basophils # (auto) 0.02 K/uL (0-0.2); Basophils % (auto) 0.4 %; Eosinophils # (auto) 0.27 K/uL (0-0.50); Eosinophils % (auto) 5.8 %; Hematocrit (blood only) 28.1 % (34.1-44.9); Hemoglobin 8.9 g/dl (12.0-16.0); Immature Granulocytes # (auto) 0.03 K/uL (0.00-0.02); Immature Granulocytes % (auto) 0.6 %; Mean Corpuscular Hemoglobin 28.4 pg (25.0-34.0); Mean Corpuscular Hgb Conc 31.7 g/dL (32.0-36.0); Mean Corpuscular Volume 89.8 fL (80.0-100.0); Mean Platelet Volume 10.4 fL (9.4-12.3); Monocytes # (auto) 0.53 K/uL (0.24-0.82); Monocytes % (auto) 11.3 %; Neutrophils # (auto) 2.34 K/uL (1.4-6.5); Neutrophils % (auto) 49.9 %; Platelet Count 178 K/uL (130-400); RDW Coefficient of Variation 14.6 % (11.5-14.5); RDW Standard Deviation 46.7 fL (36.4-46.3); Red Blood Count 3.13 M/uL (3.93-5.22); White Blood Count 4.69 K/ul (4.8-10.8)
[2022-01-23] MEDS: ASCORBIC ACID 500 MG TAB PO SCH (07:58)
[2022-01-23] MEDS: ROSUVASTATIN CALCIUM 20 MG TAB PO SCH (07:58)
[2022-01-23] MEDS: FERROUS SULFATE 325 MG TAB PO SCH (07:58)
[2022-01-23] MEDS: CLOPIDOGREL BISULFATE 75 MG TAB PO SCH (07:58)
[2022-01-23] MEDS: CYANOCOBALAMIN (B-12) 500 MCG TABLET PO SCH (07:59)
[2022-01-23] MEDS: valACYclovir HCL 500 MG TABLET PO SCH (07:59)
[2022-01-23] MEDS: OXYBUTYNIN CHLORIDE XL 5 MG TABCR PO SCH (07:59)
[2022-01-23] MEDS: DULoxetine HCL 20 MG CAP PO SCH (07:59)
[2022-01-23] MEDS: OMEGA-3 (PURIFIED FISH OIL) 1 GM CAP PO SCH ×2 (08:00→20:35)
[2022-01-23] MEDS: CHOLECALCIFEROL 1,000 UNITS 25 MCG TAB PO SCH (08:00)
[2022-01-23] MEDS: prednisoLONE acetate 1% OP SUSP 5 ML BTL OP SCH (08:00)
[2022-01-23] MEDS: INSULIN ASPART PER UNIT SC SCH ×4 (08:03→21:05)
[2022-01-23 08:29] LABS: Calcium 9.3 mg/dl (8.5-10.1); Chol HDL Ratio 3.1 (0-5); Creatinine Clr Calc Pharmacy 23.4 ml/min; Est GFR (African American) 30.2 ml/min; Est GFR (Non-African American) 26.1 ml/min; Potassium 3.9 mmol/L (3.5-5.1)
[2022-01-23 08:36] LABS: Troponin I High Sensitivity 18.1 pg/ml (0-14)
--- NOTE | 2022-01-23 09:47 | Magnetic Resonance Report ---
Brain MRI WITHOUT CONTRAST HISTORY: Right-sided facial droop. Slurred speech. Headache. Assess for stroke. TECHNIQUE: Multiplanar multisequence MRI of the brain was performed without the use of contrast. COMPARISON STUDY: Head CT 01/22/2022. FINDINGS: There is no mass, hematoma, midline shift, or acute infarct. The paranasal sinuses are avtar r. The mastoid air cells are clear. The ventricles and sulci demonstrate mild age-related involutiona l changes. Scattered foci of T2 hyperintensity seen within the periventricular and subcortical white matter are nonspecific but suggestive of mild microvascular ischemic changes. The major vascular flow voids at the skull base are well-maintained. Evidence for prior bilateral lens replacement. IMPRESSION: No acute intracranial abnormality. ACT 112: Negative or not required by law. Electronically signed by: Jatin Restrepo M.D. 01/23/2022 9:45 AM
[2022-01-23 09:50] LABS: Appearance Urine Clear (Clear); Bacteria Urine Automated Negative (Negative); Bilirubin Urine Negative (Negative); Blood Urine Negative (Negative); Color Urine Yellow; Epithelial Cell Urine Auto 20-30 /lpf (0-5); Glucose Urine UA Negative (Negative); Ketones Urine Negative (Negative); Leukocyte Esterase Urine 1+ (Negative); Nitrite Urine Negative (Negative); Protein Urine Negative (Negative); RBC Urine Automated 0-4 /hpf (0-4); Specific Gravity Urine 1.025 (1.000-1.030); Urobilinogen Urine Negative (Negative); pH Urine 5.5 (4.5-7.5)
[2022-01-23] MEDS ORDERED: ERYTHROMYCIN OP OINT 5 MG/GM 3.5 GM TUBE OP SCH (10:00)
[2022-01-23] MEDS: SODIUM CHLORIDE 0.9% 1000ML 1,000 ML IV SCH ×2 (10:12→22:36)
[2022-01-23] MEDS: ACETAMINOPHEN 500 MG TAB PO PRN (11:25)
[2022-01-23 12:00] LABS: Estimated Average Glucose 163 mg/dl; Hemoglobin A1C 7.3 % (4.5-5.6)
--- NOTE | 2022-01-23 13:34 | Neurology Consultation ---
Date of Consultation January 23, 2022 Assessment & Plan (1) Stroke-like symptom: Impression: The patient had sudden onset of expressive speech difficulty, questionable facial droop, shakiness in bilateral upper and lower extremities, which have been resolved in several hours. The patient was not a candidate for thrombolytic treatment, as her symptoms were improving in the emergency department as well as she was outside of treatment window. CT angiography of head and neck did not show any hemodynamically significant stenosis, and following brain MRI was also negative for acute cerebrovascular accident. Overall, because of such episode is unclear. Prolonged symptoms with negative brain MRI makes TIA unlikely. Anxiety attack is in differential. Hypoglycemia, and hemodynamic abnormalities were essentially ruled out. Based on reported shakiness, we need to rule out partial seizures, however, based on report of bilateral shakiness without change of awareness, works against seizures. Stroke work-up so far has been unremarkable. Plan/recommendations: We can keep the patient on aspirin or we can switch to Plavix 75 mg daily, for secondary stroke prevention. We will keep the patient on rosuvastatin as before. Goal LDL level is lower than 70. Transthoracic echocardiogram was completed, with pending report. If pending EEG comes unremarkable, then the patient can be discharged home today or tomorrow. In case of having new neurological symptoms, the patient should return back to emergency department immediately without waiting. Management of hypertension and diabetes mellitus which are stroke risk factors. Follow-up at neurology clinic in a month. (2) Shakiness: Impression: While the patient was having stuttering speech, she was also shaky in upper extremities as well as in lower extremities and she denies having altered mental status then. Even though history is not typical for complex partial seizures, but we need to do further testing to rule out seizures. Plan/recommendations: EEG. If EEG does not show any epileptogenic activity, then the patient can be discharged home without antiepileptic medication. At this time, there is no neurological indication for driving restrictions. (3) Hyperlipidemia: As seen above. (4) Type 2 diabetes mellitus with complication, with intermediate accountant current use of insulin pump: As seen above. (5) Depression: Impression: The patient has been followed by psychiatry. Trintellix was recently prescribed but the patient reports that she has not been started using his medication yet. Plan: She will be followed by her regular psychiatrist in clinic. (6) Dementia: Impression: The patient reports having short-term memory problem which has been stable for a while. She was started on low-dose donepezil, and she believes that it has been helpful. Obviously, her cognitive functioning today is quite well. She might have memory disturbance from depression. Further evaluation for neurodegenerative dementing disorder might be considered during neurology clinic follow-up visit. Plan Thank you for the consultation. History of Present Illness Reason for Consultation: Speech disturbance, shaking, facial droop, code stroke Requesting Physician: Rico Kinney MD Attending Physician: Rico Kinney History of Present Illness The patient is a very pleasant, 86-year-old female, who was brought to the emergency department yesterday afternoon, after the patient had speech disturbance, bilateral upper and lower extremity shakiness, and questionable right facial droop. The patient reportedly woke up 8 AM yesterday and was feeling fine. Around 10 AM, she began experiencing expressive speech difficult y, stuttering, also she was tremulous in her upper extremities. She also reports that she had unusual shaking activity in lower extremities but she was able to walk. EMS reported mild facial asymmetry and BS was normal. She denies having any mental status change then. In emergency department, her symptoms were improving and she was outside of the thrombolytic treatment window. Stroke specialist was consulted, and they found no indication for thrombolytic treatment. Head CT, CT angiography of head and neck were unremarkable and did not show any hemodynamically significant stenosis of large vessels. The patient denies having any similar episodes in the past. She has not been on any new medication. Trintellix was started couple weeks ago, but she has not been on it yet. She has been treated by psychiatry, for depression. She has some memory disturbance and has been using low-dose donepezil. For insomnia, she has been on Seroquel. She has not had any stroke symptoms in the past. She was on aspirin which was switched to Plavix on admission. Telemetry monitoring has been showing sinus rhythm so far. Echocardiogram was recently completed, with pending report. The patient reports that all of her recent symptoms were resolved completely, around 10 PM yesterday. Brain MRI was also done, which did not show acute intracranial pathology. The patient slept well and ate her meals today, without difficulty. She was complaining of some moderate headache yesterday, which has been improved. She does not think that she was having anxiety attack yesterday. She feels that she is back to her baseline without any residual neurological symptoms. I have reviewed the patient's chart including imaging studies and visualized them personally. I have discussed the case with the patient and answer her questions in detail. Allergies Allergy/AdvReac Type Severity Reaction Status Date / Time adhesive tape AdvReac Unknown SKIN Verified 01/22/22 15:00 IRRITATION bandaids AdvReac Unknown SKIN Uncoded 01/22/22 15:00 IRRITATION Home Medications Medication Instructions Recorded Confirmed Type donepezil 5 mg tablet 5 mg PO HS 10/19/18 01/22/22 History ferrous sulfate 325 mg (65 mg 325 mg PO DAILY 10/19/18 01/22/22 History iron) tablet latanoprost 0.005 % eye drops 1 drp OPB HS 10/19/18 01/22/22 History quetiapine 25 mg tablet 12.5 mg PO HS 10/19/18 01/22/22 History ascorbic acid (vitamin C) 100 mg 300 mg PO DAILY 12/20/18 01/22/22 History tablet omega-3 acid ethyl esters 1 gram 1 cap PO BID 02/17/20 01/22/22 History capsule blood-glucose meter #1 ea 09/14/20 01/14/22 History BD Ultra-Fine Sheri Pen Needle 32 #100 ea 09/11/21 01/14/22 Rx gauge x 5/32" (pen needle, diabetic) acetaminophen 500 mg capsule 1,000 mg PO BID PRN Pain 11/08/21 01/22/22 History glimepiride 2 mg tablet 2 mg PO DAILY 12/19/21 01/22/22 History rosuvastatin 5 mg tablet 5 mg PO DAILY #90 tabs 01/03/22 01/22/22 Rx fluticasone propionate 50 2 spray intranasal DAILY PRN nasal 01/14/22 01/22/22 Rx mcg/actuation nasal congestion #16 grams spray,suspension (Flonase Allergy Relief) vortioxetine 10 mg tablet 10 mg PO DAILY 01/14/22 01/22/22 History (Trintellix) aspirin 81 mg tablet,delayed 81 mg PO DAILY 01/22/22 01/22/22 History release cholecalciferol (vitamin D3) 25 50 mcg PO DAILY 01/22/22 01/22/22 History mcg (1,000 unit) capsule (Vitamin D3) cyanocobalamin (vitamin B-12) 500 500 mcg PO DAILY 01/22/22 01/22/22 History mcg lozenges (Vitamin B-12) duloxetine 20 mg capsule,delayed 20 mg PO DAILY 01/22/22 01/22/22 History release erythromycin 5 mg/gram (0.5 %) eye See Rx Instructions .Route .COMPLEX 01/22/22 01/22/22 History ointment insulin glargine 100 unit/mL (3 16 unit subcut HS 01/22/22 01/22/22 History mL) subcutaneous pen (Lantus Solostar U-100 Insulin) nystatin 100,000 unit/gram topical 1 applic topical BID PRN NEEDED 01/22/22 01/22/22 History cream FOR SKIN IRRITATION oxybutynin chloride 10 mg 10 mg PO QAM 01/22/22 01/22/22 History tablet,extended release 24 hr prednisolone acetate 1 % eye 2 drp ophthalmic (eye) DAILY 01/22/22 01/22/22 History drops,suspension valacyclovir 1 gram tablet 1,000 mg PO BID 01/22/22 01/22/22 History Patient History Medical History Anemia Bright red blood per rectum Cellulitis Cervical spinal stenosis Cervicalgia Chronic kidney disease, stage IV (severe) Chronic low back pain Depression Diabetic nephropathy Diabetic peripheral neuropathy associated with type 2 diabetes mellitus Dog bite Glaucoma Hyperlipidemia Lumbar facet joint syndrome Lumbar spondylosis Memory loss Mixed conductive and sensorineural hearing loss Nontoxic multinodular goiter Osteoporosis Retinal vein occlusion Subungual hematoma of finger Trochanteric bursitis of right hip Urinary incontinence Vitamin D deficiency Surgical History History of cataract surgery B/l EYES History of repair of rectocele History of repair of rotator cuff R SHOULDER History of total abdominal hysterectomy SECONDARY TO PROLAPSED UTERUS Family History Brother Bone cancer Father , @AGE 64 Cardiac disorder Family history of deafness or hearing loss Hypertension Myocardial infarction, Onset Age: 64 Mother Family history of deafness or hearing loss Pancreatic cancer Aunt Breast cancer Denies family history of Family history of bleeding disorder Ovarian cancer Prostate cancer Adverse anesthesia outcome Colorectal cancer Social History Smoking Status: Never smoker Second Hand Exposure: No; Hx Alcohol Use: No Hx Substance Use: No Preferred Language: Belarusian Communication Ability: Effective Visual Impairment: No Limitations Hearing Ability: Hard of Hearing Cardiac Cath Tech Required: Yes Beliefs That Will Affect Care: None marital status: marital status details: HAS FOUR CHILDREN Current Living Situation: Spouse and Family Current Living Situation Comment: lives w/ spouse and grandson (age 25) current occupational status: 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[employer]; 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 [employer] How many Children do You have: 4 Other Information That Helps Us Care for You: No Feels Safe at Home: Yes Safety Concerns: Feels Safe At This Time Childhood Exposure to Second-Hand Smoke: Yes caffeine: No during the past year weight has: remained stable Dental Care, Regularly: Yes Physical Activity Frequency: Other Physical Activity Frequency Comment: LIMITED BY PHYSICAL CONDITION Seatbelt Use: always Sunscreen Use: No Assistive Devices: Cane, Denture - Upper, Glasses and Walker Review of Systems Review of Systems: All systems reviewed & are unremarkable except as noted in HPI & below Physical Exam Physical Exam: General Examination: Constitutional: Well developed person in no acute distress. HENT: Normal exam with inspection. CV: Hearth rhythm is regular. Neck: Supple, no carotid bruits. Lungs: Non-labored and comfortable breathing. Abdomen: Soft, non-tender, non-distended. Skin: No rash or ecchymosis. 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 Can give good description of the event from yesterday. Good insight. Cranial Nerves: II-XII are intact. No nystagmus. Funduscopy: Normal looking optic discs. Motor: 5-/5 in all extremities without asymmetry. Tone: Normal without spasticity or rigidity. Sensory: Intact to all sensory modalities except decreased sensation in distal lower extremities symmetrically. Coordination: No dysmetria with FTN testing. DTRs: 2- in upper extremities, 1- in knees and absent in ankles. No Babinski. Speech: Fluent. Comprehension is intact. Gait: Not assessed but she reports that she walked today with walker and she was at her baseline. Musculoskeletal: Normal muscle bulk, no atrophy. Results & Data ([facility]) Vital Signs (Past 12 Hours) Vital Signs Temp Pulse Resp BP Pulse Ox O2 Del Method 01/23/22 11:07 36.9 C 69 18 158/89 H 96 Room Air 01/23/22 08:00 Room Air 01/23/22 06:21 36.6 C 65 18 107/58 L 90 Room Air 01/23/22 03:28 36.6 C 56 L 18 106/56 L 91 Room Air Laboratory Results Laboratory Results - last 24 hr 01/22/22 01/22/22 01/22/22 15:00 15:00 15:00 WBC 4.54 L RBC 3.13 L Hgb 9.0 L Hct 28.0 L MCV 89.5 MCH 28.8 MCHC 32.1 RDW Std Deviation 46.1 RDW Coeff of Mari 14.3 Plt Count 179 MPV 10.9 Immature Gran % (Auto) 0.7 Neut % (Auto) 55.5 Lymph % (Auto) 26.4 [place] % (Auto) 11.0 Eos % (Auto) 5.7 Baso % (Auto) 0.7 Neut # (Auto) 2.52 Lymph # (Auto) 1.20 [place] # (Auto) 0.50 Eos # (Auto) 0.26 Baso # (Auto) 0.03 Immature Gran # (Auto) 0.03 H PT 11.3 INR 1.1 APTT 23.1 PTT Ratio 0.8 Sodium 136 Potassium 4.2 Chloride 104 Carbon Dioxide 27 Anion Gap 5 BUN 27 H Creatinine 1.43 H Est Cr Clr Drug Dosing 28.3 Est GFR ( Amer) 38.1 Est GFR (Non-Af Amer) 32.8 BUN/Creatinine Ratio 18.9 Glucose 117 H POC Glucose Estimat Average Glucose Hemoglobin A1c Calcium 9.2 Magnesium 1.8 Total Bilirubin 0.3 AST 19 ALT 16 Alkaline Phosphatase 57 Troponin I High Sens 15.7 H Total Protein 5.9 L Albumin 3.6 Globulin 2.3 L Albumin/Globulin Ratio 1.6 Triglycerides Cholesterol LDL Cholesterol, Calc VLDL Cholesterol, Calc HDL Cholesterol Cholesterol/HDL Ratio Urine Color Urine Appearance Urine pH Ur Specific Har[place] Urine Protein Urine Glucose (UA) Urine Ketones Urine Blood Urine Nitrite Urine Bilirubin Urine Urobilinogen Ur Leukocyte Esterase Urine WBC (Auto) Urine RBC (Auto) U Hyaline Cast (Auto) U Epithel Cells (Auto) Urine Bacteria (Auto) SARS-CoV-2, RNA, NAAT 01/22/22 01/22/22 01/23/22 16:02 20:08 07:33 WBC RBC Hgb Hct MCV MCH MCHC RDW Std Deviation RDW Coeff of Mari Plt Count MPV Immature Gran % (Auto) Neut % (Auto) Lymph % (Auto) [place] % (Auto) Eos % (Auto) Baso % (Auto) Neut # (Auto) Lymph # (Auto) [place] # (Auto) Eos # (Auto) Baso # (Auto) Immature Gran # (Auto) PT INR APTT PTT Ratio Sodium Potassium Chloride Carbon Dioxide Anion Gap BUN Creatinine Est Cr Clr Drug Dosing Est GFR ( Amer) Est GFR (Non-Af Amer) BUN/Creatinine Ratio Glucose POC Glucose 111 H 81 Estimat Average Glucose Hemoglobin A1c Calcium Magnesium Total Bilirubin AST ALT Alkaline Phosphatase Troponin I High Sens Total Protein Albumin Globulin Albumin/Globulin Ratio Triglycerides Cholesterol LDL Cholesterol, Calc VLDL Cholesterol, Calc HDL Cholesterol Cholesterol/HDL Ratio Urine Color Urine Appearance Urine pH Ur Specific Har[place] Urine Protein Urine Glucose (UA) Urine Ketones Urine Blood Urine Nitrite Urine Bilirubin Urine Urobilinogen Ur Leukocyte Esterase Urine WBC (Auto) Urine RBC (Auto) U Hyaline Cast (Auto) U Epithel Cells (Auto) Urine Bacteria (Auto) SARS-CoV-2, RNA, NAAT NEGATIVE 01/23/22 01/23/22 01/23/22 07:41 07:41 07:41 WBC 4.69 L RBC 3.13 L Hgb 8.9 L Hct 28.1 L MCV 89.8 MCH 28.4 MCHC 31.7 L RDW Std Deviation 46.7 H RDW Coeff of Mari 14.6 H Plt Count 178 MPV 10.4 Immature Gran % (Auto) 0.6 Neut % (Auto) 49.9 Lymph % (Auto) 32.0 [place] % (Auto) 11.3 Eos % (Auto) 5.8 Baso % (Auto) 0.4 Neut # (Auto) 2.34 Lymph # (Auto) 1.50 [place] # (Auto) 0.53 Eos # (Auto) 0.27 Baso # (Auto) 0.02 Immature Gran # (Auto) 0.03 H PT INR APTT PTT Ratio Sodium 140 Potassium 3.9 Chloride 106 Carbon Dioxide 28 Anion Gap 6 BUN 26 H Creatinine 1.73 H D Est Cr Clr Drug Dosing 23.4 Est GFR ( Amer) 30.2 Est GFR (Non-Af Amer) 26.1 BUN/Creatinine Ratio 15.0 Glucose 72 POC Glucose Estimat Average Glucose 163 Hemoglobin A1c 7.3 H Calcium 9.3 Magnesium Total Bilirubin AST ALT Alkaline Phosphatase Troponin I High Sens 18.1 H Total Protein Albumin Globulin Albumin/Globulin Ratio Triglycerides 147 Cholesterol 141 LDL Cholesterol, Calc 67 VLDL Cholesterol, Calc 29 HDL Cholesterol 45 Cholesterol/HDL Ratio 3.1 Urine Color Urine Appearance Urine pH Ur Specific [place] Urine Protein Urine Glucose (UA) Urine Ketones Urine Blood Urine Nitrite Urine Bilirubin Urine Urobilinogen Ur Leukocyte Esterase Urine WBC (Auto) Urine RBC (Auto) U Hyaline Cast (Auto) U Epithel Cells (Auto) Urine Bacteria (Auto) SARS-CoV-2, RNA, NAAT 01/23/22 01/23/22 09:30 11:21 WBC RBC Hgb Hct MCV MCH MCHC RDW Std Deviation RDW Coeff of Mari Plt Count MPV Immature Gran % (Auto) Neut % (Auto) Lymph % (Auto) [place] % (Auto) Eos % (Auto) Baso % (Auto) Neut # (Auto) Lymph # (Auto) [place] # (Auto) Eos # (Auto) Baso # (Auto) Immature Gran # (Auto) PT INR APTT PTT Ratio Sodium Potassium Chloride Carbon Dioxide Anion Gap BUN Creatinine Est Cr Clr Drug Dosing Est GFR ( Amer) Est GFR (Non-Af Amer) BUN/Creatinine Ratio Glucose POC Glucose 174 H Estimat Average Glucose Hemoglobin A1c Calcium Magnesium Total Bilirubin AST ALT Alkaline Phosphatase Troponin I High Sens Total Protein Albumin Globulin Albumin/Globulin Ratio Triglycerides Cholesterol LDL Cholesterol, Calc VLDL Cholesterol, Calc HDL Cholesterol Cholesterol/HDL Ratio Urine Color Yellow Urine Appearance Clear Urine pH 5.5 Ur Specific Har[place]ld 1.025 Urine Protein Negative Urine Glucose (UA) Negative Urine Ketones Negative Urine Blood Negative Urine Nitrite Negative Urine Bilirubin Negative Urine Urobilinogen Negative Ur Leukocyte Esterase 1+ H Urine WBC (Auto) 1-5 Urine RBC (Auto) 0-4 U Hyaline Cast (Auto) 1-5 U Epithel Cells (Auto) 20-30 H Urine Bacteria (Auto) Negative SARS-CoV-2, RNA, NAAT Diagnostic Findings Chest X-Ray 01/22/22 14:38 XR chest 1V portable CLINICAL HISTORY: Stroke Like Symptoms. pat talking to stroke cart TECHNIQUE: Single frontal radiograph of the chest was obtained. Comparison: Comparison is made to chest radiograph 11/29/2017 FINDINGS: No lines and tubes are seen. Cardiomegaly is noted. Calcification of the aortic arch is noted. Lungs are mildly underinflated with bibasilar atelectasis. No evidence of pleural effusion or pneumothorax. IMPRESSION: No acute chest disease. ACT 112: Negative or not required by law. Electronically signed by: Maurice Mejía M.D. 01/22/2022 3:[address] 01/22/22 14:38 CT angio head w con, CT angio neck with con, CT head/brain wo con CLINICAL HISTORY: Stroke Like Symptoms TECHNIQUE: Contiguous axial CT images of the head were acquired from the base of the skull to the vertex without intravenous contrast administration. CT angiography of the head and neck was performed following intravenous administration of iodinated contrast. Coronal and sagittal MIPS were obtained from the axial data set and were submitted for review. Automated dose lowering techniques and/or adjustment according to patient size were utilized for this examination. All measurements were calculated based on NASCET criteria. CT DOSE: 994.55 mGy.cm Comparison: None available at the time of this dictation. FINDINGS: Exam is somewhat limited by patient motion. CT head: Areas of decreased attenuation are present in the periventricular and subcortical white matter bilaterally consistent with small vessel ischemic disease. Generalized cerebral atrophy with commensurate enlargement of the ventricles, sulci, and cisterns is also present. There is no acute intracranial hemorrhage or evidence of acute territorial infarction. No shift of the midline structures, mass effect, or extra-axial abnormalities are shown. Atherosclerotic calcifications are present in the intracranial segments of the internal carotid arteries. Heterogeneity of the thyroid is seen without discrete nodules. 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 CTA Neck: The left common carotid artery shares common origin with the innominate artery. There is no significant atherosclerotic plaque in the aortic arch or the origins of the innominate, left common carotid, and left subclavian arteries. The common carotid, external carotid, cervical segments of the internal carotid arteries, and the cervical segments of the vertebral arteries are patent without hemodynamically significant stenosis. The left vertebral artery is dominant. CTA Head: The anterior and posterior cerebral circulations are patent. No hemodynamically significant stenosis, aneurysm, dissection, or arteriovenous malformation is shown. origin of the bilateral posterior cerebral arteries noted. IMPRESSION: 1. No acute intracranial hemorrhage, evidence of acute territorial infarction, or other acute intracranial disease process. 2. No occlusion, hemodynamically significant stenosis, or dissection in the major cervical arteries. 3. No occlusion, hemodynamically significant stenosis, aneurysm, dissection, or arteriovenous malformation in the major intracranial arteries. Assessment of stenosis of the internal carotid arteries is based on NASCET criteria. ACT 112: Negative or not required by law. Electronically signed by: Maurice Mejía M.D. 01/22/2022 3:11 PM Head CTA 01/22/22 14:38 CT angio head w con, CT angio neck with con, CT head/brain wo con CLINICAL HISTORY: Stroke Like Symptoms TECHNIQUE: Contiguous axial CT images of the head were acquired from the base of the skull to the vertex without intravenous contrast administration. CT angiography of the head and neck was performed following intravenous a dministration of iodinated contrast. Coronal and sagittal MIPS were obtained from the axial data set and were submitted for review. Automated dose lowering techniques and/or adjustment according to patient size were utilized for this examination. All measurements were calculated based on NASCET criteria. CT DOSE: 994.55 mGy.cm Comparison: None available at the time of this dictation. FINDINGS: Exam is somewhat limited by patient motion. CT head: Areas of decreased attenuation are present in the periventricular and subcortical white matter bilaterally consistent with small vessel ischemic disease. Generalized cerebral atrophy with commensurate enlargement of the ventricles, sulci, and cisterns is also present. There is no acute intracranial hemorrhage or evidence of acute territorial infarction. No shift of the midline structures, mass effect, or extra-axial abnormalities are shown. Atherosclerotic calcifications are present in the intracranial segments of the internal carotid arteries. Heterogeneity of the thyroid is seen without discrete nodules. 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 CTA Neck: The left common carotid artery shares common origin with the innom inate artery. There is no significant atherosclerotic plaque in the aortic arch or the origins of the innominate, left common carotid, and left subclavian arteries. The common carotid, external carotid, cervical segments of the internal carotid arteries, and the cervical segments of the vertebral arteries are patent without hemodynamically significant stenosis. The left vertebral artery is dominant. CTA Head: The anterior and posterior cerebral circulations are patent. No hemodynamically significant stenosis, aneurysm, dissection, or arteriovenous malformation is shown. origin of the bilateral posterior cerebral arteries noted. IMPRESSION: 1. No acute intracranial hemorrhage, evidence of acute territorial infarction, or other acute intracranial disease process. 2. No occlusion, hemodynamically significant stenosis, or dissection in the major cervical arteries. 3. No occlusion, hemodynamically significant stenosis, aneurysm, dissection, or arteriovenous malformation in the major intracranial arteries. Assessment of stenosis of the internal carotid arteries is based on NASCET criteria. ACT 112: Negative or not required by law. Electronically signed by: Maurice Mejía M.D. 01/22/2022 3:11 PM Neck CTA 01/22/22 14:38 CT angio head w con, CT angio neck with con, CT head/brain wo con CLINICAL HISTORY: Stroke Like Symptoms TECHNIQUE: Contiguous axial CT images of the head were acquired from the base of the skull to the vertex without intravenous contrast administration. CT angiography of the head and neck was performed following intravenous administration of iodinated contrast. Coronal and sagittal MIPS were obtained from the axial data set and were submitted for review. Automated dose lowering techniques and/or adjustment according to patient size were utilized for this examination. All measurements were calculated based on NASCET criteria. CT DOSE: 994.55 mGy.cm Comparison: None available at the time of this dictation. FINDINGS: Exam is somewhat limited by patient motion. CT head: Areas of decreased attenuation are present in the periventricular and subcortical white matter bilaterally consistent with small vessel ischemic disease. Generalized cerebral atrophy with commensurate enlargement of the ventricles, sulci, and cisterns is also present. There is no acute intracranial hemorrhage or evidence of acute territorial infarction. No shift of the midline structures, mass effect, or extra-axial abnormalities are shown. Atherosclerotic calcifications are present in the intracranial segments of the internal carotid arteries. Heterogeneity of the thyroid is seen without discrete nodules. 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 CTA Neck: The left common carotid artery shares common origin with the innominate artery. There is no significant atherosclerotic plaque in the aortic arch or the origins of the innominate, left common carotid, and left subclavian arteries. The common carotid, external carotid, cervical segments of the internal carotid arteries, and the cervical segments of the vertebral arteries are patent without hemodynamically significant stenosis. The left vertebral artery is dominant. CTA Head: The anterior and posterior cerebral circulations are patent. No hemodynamically significant stenosis, aneurysm, dissection, or arteriovenous malformation is shown. origin of the bilateral posterior cerebral arteries noted. IMPRESSION: 1. No acute intracranial hemorrhage, evidence of acute territorial infarction, or other acute intracranial disease process. 2. No occlusion, hemodynamically significant stenosis, or dissection in the major cervical arteries. 3. No occlusion, hemodynamically significant stenosis, aneurysm, dissection, or arteriovenous malformation in the major intracranial arteries. Assessment of stenosis of the internal carotid arteries is based on NASCET criteria. ACT 112: Negative or not required by law. Electronically signed by: Maurice Mejía M.D. 01/22/2022 3:11 PM Brain MRI 01/23/22 00:10 Brain MRI WITHOUT CONTRAST HISTORY: Right-sided facial droop. Slurred speech. Headache. Assess for stroke. TECHNIQUE: Multiplanar multisequence MRI of the brain was performed without the use of contrast. COMPARISON STUDY: Head CT 01/22/2022. FINDINGS: There is no mass, hematoma, midline shift, or acute infarct. The paranasal sinuses are clear. The mastoid air cells are clear. The ventricles and sulci demonstrate mild age-related involutional changes. Scattered foci of T2 hyperintensity seen within the periventricular and subcortical white matter are nonspecific but suggestive of mild microvascular ischemic changes. The major vascular flow voids at the skull base are well-maintained. Evidence for prior bilateral lens replacement. IMPRESSION: No acute intracranial abnormality. ACT 112: Negative or not required by law. Electronically signed by: Jatin Restrepo M.D. 01/23/2022 9:45 AM
--- NOTE | 2022-01-23 16:55 | Electroencephalogram ---
EEG Procedure Note Date of Service January 23, 2022 Start / End Times Start Time: 3:00 End Time: 3:20 Referring Physician Keivn Nina MD History Shakiness with speech disturbance Home Medication List Medication Instructions Recorded Confirmed Type donepezil 5 mg tablet 5 mg PO HS 10/19/18 01/22/22 History ferrous sulfate 325 mg (65 mg 325 mg PO DAILY 10/19/18 01/22/22 History iron) tablet latanoprost 0.005 % eye drops 1 drp OPB HS 10/19/18 01/22/22 History quetiapine 25 mg tablet 12.5 mg PO HS 10/19/18 01/22/22 History ascorbic acid (vitamin C) 100 mg 300 mg PO DAILY 12/20/18 01/22/22 History tablet omega-3 acid ethyl esters 1 gram 1 cap PO BID 02/17/20 01/22/22 History capsule blood-glucose meter #1 ea 09/14/20 01/14/22 History BD Ultra-Fine Sheri Pen Needle 32 #100 ea 09/11/21 01/14/22 Rx gauge x 5/32" (pen needle, diabetic) acetaminophen 500 mg capsule 1,000 mg PO BID PRN Pain 11/08/21 01/22/22 History glimepiride 2 mg tablet 2 mg PO DAILY 12/19/21 01/22/22 History rosuvastatin 5 mg tablet 5 mg PO DAILY #90 tabs 01/03/22 01/22/22 Rx fluticasone propionate 50 2 spray intranasal DAILY PRN nasal 01/14/22 01/22/22 Rx mcg/actuation nasal congestion #16 grams spray,suspension (Flonase Allergy Relief) vortioxetine 10 mg tablet 10 mg PO DAILY 01/14/22 01/22/22 History (Trintellix) aspirin 81 mg tablet,delayed 81 mg PO DAILY 01/22/22 01/22/22 History release cholecalciferol (vitamin D3) 25 50 mcg PO DAILY 01/22/22 01/22/22 History mcg (1,000 unit) capsule (Vitamin D3) cyanocobalamin (vitamin B-12) 500 500 mcg PO DAILY 01/22/22 01/22/22 History mcg lozenges (Vitamin B-12) duloxetine 20 mg capsule,delayed 20 mg PO DAILY 01/22/22 01/22/22 History release erythromycin 5 mg/gram (0.5 %) eye See Rx Instructions .Route .COMPLEX 01/22/22 01/22/22 History ointment insulin glargine 100 unit/mL (3 16 unit subcut HS 01/22/22 01/22/22 History mL) subcutaneous pen (Lantus Solostar U-100 Insulin) nystatin 100,000 unit/gram topical 1 applic topical BID PRN NEEDED 01/22/22 01/22/22 History cream FOR SKIN IRRITATION oxybutynin chloride 10 mg 10 mg PO QAM 01/22/22 01/22/22 History tablet,extended release 24 hr prednisolone acetate 1 % eye 2 drp ophthalmic (eye) DAILY 01/22/22 01/22/22 History drops,suspension valacyclovir 1 gram tablet 1,000 mg PO BID 01/22/22 01/22/22 History Inpatient Medication List Acetaminophen (Acetaminophen 500 Mg Tab) 1,000 mg PO BID PRN PRN Reason: Pain Stop: 02/21/22 18:40 Last Admin: 01/23/22 11:25 Dose: 1,000 mg Documented By: Admin: 01/22/22 20:46 Dose: 1,000 mg Documented By: MAC Ascorbic Acid (Ascorbic Acid 500 Mg Tab) 500 mg PO DAILY FANNIE Stop: 02/22/22 08:59 Last Admin: 01/23/22 07:58 Dose: 500 mg Documented By: CC Clopidogrel Bisulfate (Clopidogrel Bisulfate 75 Mg Tab) 75 mg PO QAM FANNIE Stop: 02/22/22 08:59 Last Admin: 01/23/22 07:58 Dose: 75 mg Documented By: CC Cyanocobalamin (Cyanocobalamin (B-12) 500 Mcg Tablet) 500 mcg PO DAILY FANNIE Stop: 02/22/22 08:59 Last Admin: 01/23/22 07:59 Dose: 500 mcg Documented By: CC Donepezil HCl (Donepezil Hcl 5 Mg Tab) 5 mg PO HS FANNIE Stop: 02/21/22 20:59 Last Admin: 01/22/22 20:44 Dose: 5 mg Documented By: MAC Duloxetine HCl (Duloxetine Hcl 20 Mg Cap) 20 mg PO DAILY FANNIE Stop: 02/22/22 08:59 Last Admin: 01/23/22 07:59 Dose: 20 mg Documented By: CC Erythromycin (Erythromycin Op Oint 5 Mg/Gm 3.5 Gm Tube) 1 appln OP DAILY@1000 [facility] Stop: 01/24/22 23:59 Last Admin: 01/23/22 10:12 Dose: Not Given Documented By: LOIS Ferrous Sulfate (Ferrous Sulfate 325 Mg Tab) 325 mg PO DAILY FANNIE Stop: 02/22/22 08:59 Last Admin: 01/23/22 07:58 Dose: 325 mg Documented By: LOIS Fish Oil ([place]-3 (Purified Fish Oil) 1 Gm Cap) 1 gm PO BID FANNIE Stop: 02/21/22 20:59 Last Admin: 01/23/22 08:00 Dose: 1 gm Documented By: Admin: 01/22/22 20:42 Dose: 1 gm Documented By: YAZ Sodium Chloride (Nss 1000ml) 1,000 mls @ 80 mls/hr IV .[id number] [facility] Stop: 02/22/22 09:14 Last Admin: 01/23/22 10:12 Dose: 80 mls/hr Documented By: LOIS Insulin Aspart (Insulin Aspart Per Unit) 0 units SC ACHS FANNIE Stop: 02/21/22 20:59 Last Admin: 01/23/22 12:08 Dose: 4 units Documented By: LOIS Co-signed By: SHAI Admin: 01/23/22 08:03 Dose: Not Given Documented By: Admin: 01/22/22 20:43 Dose: Not Given Documented By: YAZ Insulin Glargine (Lantus Per Unit Charge) 16 units SQ HS [facility] Stop: 02/21/22 20:59 Last Admin: 01/22/22 20:42 Dose: Not Given Documented By: YAZ Latanoprost (Latanoprost 0.005% Op Soln 2.5 Ml Btl) 1 drops OPB HS [facility] Stop: 02/21/22 20:59 Last Admin: 01/22/22 20:43 Dose: 1 drops Documented By: YAZ Lorazepam (Lorazepam 0.5 Mg Tab) 0.5 mg PO TODAY@0600 [facility] Stop: 01/23/22 23:59 Last Admin: 01/23/22 07:58 Dose: 0.5 mg Documented By: LOIS Miscellaneous (Trintellix- Order Awaiting Action) 1 each N/A QS [facility] Stop: 02/22/22 00:00 Last Admin: 01/23/22 15:22 Dose: Not Given Documented By: Admin: 01/23/22 08:00 Dose: Not Given Documented By: Admin: 01/23/22 01:08 Dose: Not Given Documented By: YAZ Oxybutynin Chloride (Oxybutynin Chloride Xl 5 Mg Tabcr) 10 mg PO QAM FANNIE; Protocol Stop: 02/22/22 08:59 Last Admin: 01/23/22 07:59 Dose: 10 mg Documented By: LOIS Prednisolone Acetate (Prednisolone Acetate 1% Op Susp 5 Ml Btl) 2 drops OP DAILY FANNIE Stop: 01/27/22 23:59 Last Admin: 01/23/22 08:00 Dose: 2 drops Documented By: LOIS Quetiapine Fumarate (Quetiapine Fumarate 25 Mg Tablet) 12.5 mg PO HS FANNIE Stop: 02/21/22 20:59 Last Admin: 01/22/22 20:44 Dose: 12.5 mg Documented By: YAZ Rosuvastatin Calcium (Rosuvastatin Calcium 20 Mg Tab) 20 mg PO QAM FANNIE Stop: 02/22/22 08:59 Last Admin: 01/23/22 07:58 Dose: 20 mg Documented By: LOIS Vitamin D (Cholecalciferol 1,000 Units 25 Mcg Tab) 2,000 units PO DAILY FANNIE Stop: 02/22/22 08:59 Last Admin: 01/23/22 08:00 Dose: 2,000 units Documented By: LOIS Discontinued Medications Ioversol (Optiray 300 500ml) 104 ml IV ONCE ONE Stop: 01/22/22 14:48 Last Admin: 01/22/22 14:53 Dose: 104 ml Documented By: DYLON Labetalol HCl (Labetalol Hcl Iv 5 Mg/Ml 20ml) 10 mg IV NOW STA Stop: 01/22/22 15:03 Last Admin: 01/22/22 15:05 Dose: 10 mg Documented By: ANGELICA Co-signed By: ANGELICA(2) Ondansetron HCl (Ondansetron Inj 2 Mg/Ml 2 Ml Vial) Confirm Administered Dose 4 mg .ROUTE .STK-MED ONE Stop: 01/22/22 14:47 Last Admin: 01/22/22 14:50 Dose: 4 mg Documented By: ANGELICA Valacyclovir HCl (Valacyclovir Hcl 500 Mg Tablet) 1,000 mg PO BID FANNIE Stop: 01/27/22 23:59 Last Admin: 10/13/22 07:59 Dose: 1,000 mg Documented By: Admin: 01/22/22 20:41 Dose: 1,000 mg Documented By: MAC Description This is a 21 electrode EEG with a single channel dedicated to limited EKG. The electrodes were placed in accordance with the International 10-20 system. Interpretation During restful wakefulness, there is 20 to 30 V, 9 Hz posterior activity, attenuates with eye opening bilaterally. Background activity shows good organization without focal slowing. Photic stimulations and hyperventilation are not attempted. No sleep-related pattern is captured. There are no electrographic seizures or epileptogenic discharges during this study. Impression: There is a normal EEG, recorded in wakefulness only. There is no electrographic seizures or epileptogenic discharge. Clinical Correlation Normal routine interictal EEG cannot rule out seizure disorder. Clinical correlation is suggested.
--- NOTE | 2022-01-23 18:43 | XCELERA ---
[id number]
--- NOTE | 2022-01-23 19:39 | Hospitalist Progress Note ---
Date of Service January 23, 2022 Assessment & Plan (1) TIA (transient ischemic attack): Plan: Reported right sided facial droop, b/l shakiness, slurred speech, etc. All symptoms resolved. MRI brain without acute or chronic CVA. CTA head/neck without stenosis, dissection, aneurysm, or any abnormalities. Echo finally returned late this evening - no thrombus or source for an embolus. Thus far no afib/flutter on tele. Cont crestor. Lipid profile reviewed. Agree w/ discontinuation of aspirin and changing to plavix for secondary prevention. EEG neg for seizure. Plan to set up 30-day event monitor post-d/c. PT/OT both advise home PT/OT. (2) Elevated troponin: Plan: No evidence of ACS. Likely myocardial demand ischemia in setting of #1 above. May also be minimally elevated due to #3 below. (3) Chronic kidney disease, stage IV (severe): Plan: Baseline CrCl 20s. In light of CT contrast given for CTA head/neck plan to hydrate with NS overnight - repeat BMP am. (4) Diabetic nephropathy: (5) Hyperlipidemia: Plan: Continue statin but increase rosuvastatin 5 mg --> 20 mg due to #1 above (6) Urinary incontinence: Plan: Continue oxybutynin. Check u/a and urine cx - r/o UTI - UTI can be a "stroke mimic" (7) Vitamin D deficiency: Plan: Continue supplementation. (8) Glaucoma: Plan: Continue eye drops. (9) Depression: (10) Dementia: Plan: Continue Seroquel HS, donepezil HS. (11) Tremor: Plan: none seen today TSH 12/2021 wnl (12) Anemia: Plan: likely 2nd to CKD stage 4 check B12, folate, ferritin in am Just had IV iron recently as outpatient managed by a Dr Mejia - shila/onc - through [facility] Plan son updated at bedside plan for d/c in am if stable overnight Admission and Anticipated Discharge Date Admission Date: January 22, 2022 Subjective patient was visiting with her son/daughter in law during my visit patient is back to baseline - no further facial droop, tremors of arms, speech disturbance, etc family states she is at baseline she feels "good" today denies any specific complaints tele without a.fib or other dysrhythmia patient has a 12noon luncheon tomorrow with a friend she has had for decades; this friend is moving out of the area she hopes to attend this Review of Systems Review of Systems: gen - no fevers cv - no cp pulm - no dyspnea GI - no abd pain, nausea, emesis Heme - patient says she just had Fe infusion via the [employer] system; follows with shila Moncada/onc Physical Exam Physical Exam: gen - NAD, pleasant, awake/alert face - no droop mouth - MMM heart - RRR, s1 s2, no murmur lungs - CTA b/l abd - soft NT ND BS+ ext - no edema, pulses 2+ b/l neuro - strength 5/5 x 4 exts; no facial droop; speech fluent/clear; no tremors noted Results & Data Results & Data ([facility] [place]) Vital Signs (Past 12 Hours) Vital Signs Temp Pulse Resp BP Pulse Ox O2 Del Method 01/23/22 14:55 37.0 C 71 18 146/63 H 95 Room Air 01/23/22 11:07 36.9 C 69 18 158/89 H 96 Room Air 01/23/22 08:00 Room Air Laboratory Results Laboratory Results - last 24 hr 01/22/22 01/23/22 01/23/22 20:08 07:33 07:41 WBC 4.69 L RBC 3.13 L Hgb 8.9 L Hct 28.1 L MCV 89.8 MCH 28.4 MCHC 31.7 L RDW Std Deviation 46.7 H RDW Coeff of Mari 14.6 H Plt Count 178 MPV 10.4 Immature Gran % (Auto) 0.6 Neut % (Auto) 49.9 Lymph % (Auto) 32.0 [place] % (Auto) 11.3 Eos % (Auto) 5.8 Baso % (Auto) 0.4 Neut # (Auto) 2.34 Lymph # (Auto) 1.50 [place] # (Auto) 0.53 Eos # (Auto) 0.27 Baso # (Auto) 0.02 Immature Gran # (Auto) 0.03 H Sodium Potassium Chloride Carbon Dioxide Anion Gap BUN Creatinine Est Cr Clr Drug Dosing Est GFR ( Amer) Est GFR (Non-Af Amer) BUN/Creatinine Ratio Glucose POC Glucose 111 H 81 Estimat Average Glucose Hemoglobin A1c Calcium Troponin I High Sens Triglycerides Cholesterol LDL Cholesterol, Calc VLDL Cholesterol, Calc HDL Cholesterol Cholesterol/HDL Ratio Urine Color Urine Appearance Urine pH Ur Specific [place] Urine Protein Urine Glucose (UA) Urine Ketones Urine Blood Urine Nitrite Urine Bilirubin Urine Urobilinogen Ur Leukocyte Esterase Urine WBC (Auto) Urine RBC (Auto) U Hyaline Cast (Auto) U Epithel Cells (Auto) Urine Bacteria (Auto) 01/23/22 01/23/22 01/23/22 07:41 07:41 09:30 WBC RBC Hgb Hct MCV MCH MCHC RDW Std Deviation RDW Coeff of Mari Plt Count MPV Immature Gran % (Auto) Neut % (Auto) Lymph % (Auto) [place] % (Auto) Eos % (Auto) Baso % (Auto) Neut # (Auto) Lymph # (Auto) [place] # (Auto) Eos # (Auto) Baso # (Auto) Immature Gran # (Auto) Sodium 140 Potassium 3.9 Chloride 106 Carbon Dioxide 28 Anion Gap 6 BUN 26 H Creatinine 1.73 H D Est Cr Clr Drug Dosing 23.4 Est GFR ( Amer) 30.2 Est GFR (Non-Af Amer) 26.1 BUN/Creatinine Ratio 15.0 Glucose 72 POC Glucose Estimat Average Glucose 163 Hemoglobin A1c 7.3 H Calcium 9.3 Troponin I High Sens 18.1 H Triglycerides 147 Cholesterol 141 LDL Cholesterol, Calc 67 VLDL Cholesterol, Calc 29 HDL Cholesterol 45 Cholesterol/HDL Ratio 3.1 Urine Color Yellow Urine Appearance Clear Urine pH 5.5 Ur Specific [place] 1.025 Urine Protein Negative Urine Glucose (UA) Negative Urine Ketones Negative Urine Blood Negative Urine Nitrite Negative Urine Bilirubin Negative Urine Urobilinogen Negative Ur Leukocyte Esterase 1+ H Urine WBC (Auto) 1-5 Urine RBC (Auto) 0-4 U Hyaline Cast (Auto) 1-5 U Epithel Cells (Auto) 20-30 H Urine Bacteria (Auto) Negative 01/23/22 01/23/22 11:21 16:24 WBC RBC Hgb Hct MCV MCH MCHC RDW Std Deviation RDW Coeff of Mari Plt Count MPV Immature Gran % (Auto) Neut % (Auto) Lymph % (Auto) [place] % (Auto) Eos % (Auto) Baso % (Auto) Neut # (Auto) Lymph # (Auto) [place] # (Auto) Eos # (Auto) Baso # (Auto) Immature Gran # (Auto) Sodium Potassium Chloride Carbon Dioxide Anion Gap BUN Creatinine Est Cr Clr Drug Dosing Est GFR ( Amer) Est GFR (Non-Af Amer) BUN/Creatinine Ratio Glucose POC Glucose 174 H 146 H Estimat Average Glucose Hemoglobin A1c Calcium Troponin I High Sens Triglycerides Cholesterol LDL Cholesterol, Calc VLDL Cholesterol, Calc HDL Cholesterol Cholesterol/HDL Ratio Urine Color Urine Appearance Urine pH Ur Specific [place] Urine Protein Urine Glucose (UA) Urine Ketones Urine Blood Urine Nitrite Urine Bilirubin Urine Urobilinogen Ur Leukocyte Esterase Urine WBC (Auto) Urine RBC (Auto) U Hyaline Cast (Auto) U Epithel Cells (Auto) Urine Bacteria (Auto) PG Care Time/CCT Total # of Minutes Spent Total Time Spent with Patient: Total time spent is greater than 50% in coordination of care (as documented) at patient's floor/unit and/or counseling patient: Coding Level of Care Code 47394 Subseq Obs Care Lvl 3 Diagnoses TIA (transient ischemic attack) G45.9 Elevated troponin R77.8 Chronic kidney disease, stage IV (severe) N18.4 Diabetic nephropathy E11.21 Hyperlipidemia E78.5 Urinary incontinence R32 Vitamin D deficiency E55.9 Glaucoma H40.9 Depression F32.9 Dementia F03.90 Tremor R25.1 Anemia D64.9
[2022-01-23] MEDS: QUEtiapine FUMARATE 25 MG TABLET PO SCH (20:35)
[2022-01-23] MEDS: DONEPEZIL HCL 5 MG TAB PO SCH (20:36)
[2022-01-23] MEDS: LATANOPROST 0.005% OP SOLN 2.5 ML BTL OPB SCH (20:36)
[2022-01-23] MEDS: LANTUS PER UNIT CHARGE SQ SCH (21:05)
[2022-01-24 07:28] LABS: Basophils # (auto) 0.02 K/uL (0-0.2); Basophils % (auto) 0.5 %; Eosinophils # (auto) 0.29 K/uL (0-0.50); Eosinophils % (auto) 7.6 %; Hematocrit (blood only) 28.8 % (34.1-44.9); Hemoglobin 9.1 g/dl (12.0-16.0); Immature Granulocytes # (auto) 0.03 K/uL (0.00-0.02); Immature Granulocytes % (auto) 0.8 %; Lymphocytes # (auto) 1.22 K/uL (1.2-3.4); Lymphocytes % (auto) 31.8 %; Mean Corpuscular Hemoglobin 28.1 pg (25.0-34.0); Mean Corpuscular Hgb Conc 31.6 g/dL (32.0-36.0); Mean Corpuscular Volume 88.9 fL (80.0-100.0); Monocytes # (auto) 0.42 K/uL (0.24-0.82); Monocytes % (auto) 10.9 %; Neutrophils # (auto) 1.86 K/uL (1.4-6.5); Neutrophils % (auto) 48.4 %; Platelet Count 188 K/uL (130-400); RDW Coefficient of Variation 14.4 % (11.5-14.5); RDW Standard Deviation 46.4 fL (36.4-46.3); Red Blood Count 3.24 M/uL (3.93-5.22); White Blood Count 3.84 K/ul (4.8-10.8)
[2022-01-24] MEDS: prednisoLONE acetate 1% OP SUSP 5 ML BTL OP SCH (08:04)
[2022-01-24] MEDS: INSULIN ASPART PER UNIT SC SCH (08:04)
[2022-01-24] MEDS: DULoxetine HCL 20 MG CAP PO SCH (08:06)
[2022-01-24] MEDS: OMEGA-3 (PURIFIED FISH OIL) 1 GM CAP PO SCH (08:06)
[2022-01-24] MEDS: OXYBUTYNIN CHLORIDE XL 5 MG TABCR PO SCH (08:06)
[2022-01-24] MEDS: ASCORBIC ACID 500 MG TAB PO SCH (08:07)
[2022-01-24] MEDS: FERROUS SULFATE 325 MG TAB PO SCH (08:07)
[2022-01-24] MEDS: CYANOCOBALAMIN (B-12) 500 MCG TABLET PO SCH (08:07)
[2022-01-24] MEDS: CHOLECALCIFEROL 1,000 UNITS 25 MCG TAB PO SCH (08:07)
[2022-01-24] MEDS: CLOPIDOGREL BISULFATE 75 MG TAB PO SCH (08:07)
[2022-01-24] MEDS: ROSUVASTATIN CALCIUM 20 MG TAB PO SCH (08:07)
[2022-01-24 08:17] LABS: BUN Creatinine Ratio 18.1 (10-20); Calcium 9.1 mg/dl (8.5-10.1); Creatinine Clr Calc Pharmacy 24.3 ml/min; Est GFR (African American) 31.8 ml/min; Est GFR (Non-African American) 27.4 ml/min; Potassium 4.4 mmol/L (3.5-5.1)
[2022-01-24 08:21] LABS: Ferritin 34.6 ng/ml (8-388)
[2022-01-24 08:27] LABS: Folate (Folic Acid) 11.6 ng/ml (>5.38)
[2022-01-24] MEDS ORDERED: STROKE PATIENT DISCHARGE STA (08:58)
[2022-01-24] MEDS ORDERED: valACYclovir HCL 500 MG TABLET PO SCH (09:00)
--- NOTE | 2022-01-24 09:09 | Discharge Summary ---
Date of Service date of admission - January 22, 2022 date of discharge - January 24, 2022 Admission HPI Per Admitting Provider Keren Hull is an 86 y/o female with PMH significant for DM2 and nephropathy, CKD, iron deficiency anemia, dementia, hyperlipidemia, and depression who presented today as a stroke alert. Patient woke up around 8 AM feeling normal, and then around 10 AM, patient's speech seemed off to as she had difficulty getting her words out speech and it was slurred. He also notices she was also tremulous in her upper extremities. called with her daughter, who was able to arrive them at 1 PM and noted that her mother was very shaky and speech was coming out very slowly, which is not her baseline. EMS was called, and at their arrival they noticed a right-sided facial droop as well as previously stated symptoms. Patient confirms the above, and also states that she had a headache all throughout her head, previously severe as a 56, now 23. Seems to be getting better on its own. She was apparently nauseous prior to arrival, but does not complain of any nausea and vomiting during my visit. He did take all her morning medications and has been compliant with these. She has history of diabetes and takes 16 units of Lantus at night, however her glucose was checked in the field and was normal. No previous history of strokes. No other complaints such as chest pain, shortness of breath, palpitations, extremity paralysis or numbness or tingling. Head CT, as well as head and neck CTA were unremarkable. At the time of visit, patient is still having slow pH, but it is not slurred and logical. She is still tremulous, and both upper extremities but is without any weakness or numbness. Labs are significant for leukopenia, which seems to be chronic for the patient, as well as hemoglobin of 9.0, last checked 1 year ago was 11.5. Kidney function at baseline, glucose 117, no electrolyte abnormalities. Troponin very mildly elevated at 15. Principal Diagnosis TIA Discharge Exam gen - NAD, pleasant, awake/alert face - no droop mouth - MMM heart - RRR, s1 s2, no murmur lungs - CTA b/l abd - soft NT ND BS+ ext - no edema, pulses 2+ b/l neuro - strength 5/5 x 4 exts; no facial droop; speech fluent/clear; no tremors noted Discharge Data Allergies Allergy/AdvReac Type Severity Reaction Status Date / Time adhesive tape AdvReac Unknown SKIN Verified 01/22/22 15:00 IRRITATION bandaids AdvReac Unknown SKIN Uncoded 01/22/22 15:00 IRRITATION Consultations Neurology PT, OT, Speech therapy Ordered Studies Chest X-Ray 01/22/22 14:38 XR chest 1V portable CLINICAL HISTORY: Stroke Like Symptoms. pat talking to stroke cart TECHNIQUE: Single frontal radiograph of the chest was obtained. Comparison: Comparison is made to chest radiograph 11/29/2017 FINDINGS: No lines and tubes are seen. Cardiomegaly is noted. Calcification of the aortic arch is noted. Lungs are mildly underinflated with bibasilar atelectasis. No evidence of pleural effusion or pneumothorax. IMPRESSION: No acute chest disease. ACT 112: Negative or not required by law. Electronically signed by: Maurice Mejía M.D. 01/22/2022 3:[address] 01/22/22 14:38 CT angio head w con, CT angio neck with con, CT head/brain wo con CLINICAL HISTORY: Stroke Like Symptoms TECHNIQUE: Contiguous axial CT images of the head were acquired from the base of the skull to the vertex without intravenous contrast administration. CT angiography of the head and neck was performed following intravenous administr ation of iodinated contrast. Coronal and sagittal MIPS were obtained from the axial data set and were submitted for review. Automated dose lowering techniques and/or adjustment according to patient size were utilized for this examination. All measurements were calculated based on NASCET criteria. CT DOSE: 994.55 mGy.cm Comparison: None available at the time of this dictation. FINDINGS: Exam is somewhat limited by patient motion. CT head: Areas of decreased attenuation are present in the periventricular and subcortical white matter bilaterally consistent with small vessel ischemic disease. Generalized cerebral atrophy with commensurate enlargement of the ventricles, sulci, and cisterns is also present. There is no acute intracranial hemorrhage or evidence of acute territorial infarction. No shift of the midline structures, mass effect, or extra-axial abnormalities are shown. Atherosclerotic calcifications are present in the intracranial segments of the internal carotid arteries. Heterogeneity of the thyroid is seen without discrete nodules. 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 CTA Neck: The left common carotid artery shares common origin with the innominate artery. There is no significant atherosclerotic plaque in the aortic arch or the origins of the innominate, left common carotid, and left subclavian arteries. The common carotid, external carotid, cervical segments of the internal carotid arteries, and the cervical segments of the vertebral arteries are patent without hemodynamically significant stenosis. The left vertebral artery is dominant. CTA Head: The anterior and posterior cerebral circulations are patent. No hemodynamically significant stenosis, aneurysm, dissection, or arteriovenous malformation is shown. origin of the bilateral posterior cerebral arteries noted. IMPRESSION: 1. No acute intracranial hemorrhage, evidence of acute territorial infarction, or other acute intracranial disease process. 2. No occlusion, hemodynamically significant stenosis, or dissection in the major cervical arteries. 3. No occlusion, hemodynamically significant stenosis, aneurysm, dissection, or arteriovenous malformation in the major intracranial arteries. Assessment of stenosis of the internal carotid arteries is based on NASCET criteria. ACT 112: Negative or not required by law. Electronically signed by: Maurice Mejía M.D. 01/22/2022 3:11 PM Head CTA 01/22/22 14:38 CT angio head w con, CT angio neck with con, CT head/brain wo con CLINICAL HISTORY: Stroke Like Symptoms TECHNIQUE: Contiguous axial CT images of the head were acquired from the base of the skull to the vertex without intravenous contrast administration. CT angiography of the head and neck was performed following intravenous administration of iodinated contrast. Coronal and sagittal MIPS were obtained from the axial data set and were submitted for review. Automated dose lowering techniques and/or adjustment according to patient size were utilized for this examination. All measurements were calculated based on NASCET criteria. CT DOSE: 994.55 mGy.cm Comparison: None available at the time of this dictation. FINDINGS: Exam is somewhat limited by patient motion. CT head: Areas of decreased attenuation are present in the periventricular and subcortical white matter bilaterally consistent with small vessel ischemic disease. Generalized cerebral atrophy with commensurate enlargement of the ventricles, sulci, and cisterns is also present. There is no acute intracranial hemorrhage or evidence of acute territorial infarction. No shift of the midline structures, mass effect, or extra-axial abnormalities are shown. Atherosclerotic calcifications are present in the intracranial segments of the internal carotid arteries. Heterogeneity of the thyroid is seen without discrete nodules. 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 CTA Neck: The left common carotid artery shares common origin with the innominate artery. There is no significant atherosclerotic plaque in the aortic arch or the origins of the innominate, left common carotid, and left subclavian arteries. The common carotid, external carotid, cervical segments of the internal carotid arteries, and the cervical segments of the vertebral arteries are patent without hemodynamically significant stenosis. The left vertebral artery is dominant. CTA Head: The anterior and posterior cerebral circulations are patent. No hemodynamically significant stenosis, aneurysm, dissection, or arteriovenous malformation is shown. origin of the bilateral posterior cerebral arteries noted. IMPRESSION: 1. No acute intracranial hemorrhage, evidence of acute territorial infarction, or other acute intracranial disease process. 2. No occlusion, hemodynamically significant stenosis, or dissection in the major cervical arteries. 3. No occlusion, hemodynamically significant stenosis, aneurysm, dissection, or arteriovenous malformation in the major intracranial arteries. Assessment of stenosis of the internal carotid arteries is based on NASCET criteria. ACT 112: Negative or not required by law. Electronically signed by: Maurice Mejía M.D. 01/22/2022 3:11 PM Neck CTA 01/22/22 14:38 CT angio head w con, CT angio neck with con, CT head/brain wo con CLINICAL HISTORY: Stroke Like Symptoms TECHNIQUE: Contiguous axial CT images of the head were acquired from the base of the skull to the vertex without intravenous contrast administration. CT angiography of the head and neck was performed following intravenous administration of iodinated contrast. Coronal and sagittal MIPS were obtained from the axial data set and were submitted for review. Automated dose lowering techniques and/or adjustment according to patient size were utilized for this examination. All measurements were calculated based on NASCET criteria. CT DOSE: 994.55 mGy.cm Comparison: None available at the time of this dictation. FINDINGS: Exam is somewhat limited by patient motion. CT head: Areas of decreased attenuation are present in the periventricular and subcortical white matter bilaterally consistent with small vessel ischemic disease. Generalized cerebral atrophy with commensurate enlargement of the ventricles, sulci, and cisterns is also present. There is no acute intracranial hemorrhage or evidence of acute territorial infarction. No shift of the midline structures, mass effect, or extra-axial abnormalities are shown. Atherosclerotic calcifications are present in the intracranial segments of the internal carotid arteries. Heterogeneity of the thyroid is seen without discrete nodules. 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 CTA Neck: The left common carotid artery shares common origin with the innominate artery. There is no significant atherosclerotic plaque in the aortic arch or the origins of the innominate, left common carotid, and left subclavian arteries. The common carotid, external carotid, cervical segments of the internal carotid arteries, and the cervical segments of the vertebral arteries are patent without hemodynamically significant stenosis. The left vertebral artery is dominant. CTA Head: The anterior and posterior cerebral circulations are patent. No hemodynamically significant stenosis, aneurysm, dissection, or arteriovenous malformation is shown. origin of the bilateral posterior cerebral arteries noted. IMPRESSION: 1. No acute intracranial hemorrhage, evidence of acute territorial infarction, or other acute intracranial disease process. 2. No occlusion, hemodynamically significant stenosis, or dissection in the major cervical arteries. 3. No occlusion, hemodynamically significant stenosis, aneurysm, dissection, or arteriovenous malformation in the major intracranial arteries. Assessment of stenosis of the internal carotid arteries is based on NASCET criteria. ACT 112: Negative or not required by law. Electronically signed by: Maurice Mejía M.D. 01/22/2022 3:11 PM Brain MRI 01/23/22 00:10 Brain MRI WITHOUT CONTRAST HISTORY: Right-sided facial droop. Slurred speech. Headache. Assess for stroke. TECHNIQUE: Multiplanar multisequence MRI of the brain was performed without the use of contrast. COMPARISON STUDY: Head CT 01/22/2022. FINDINGS: There is no mass, hematoma, midline shift, or acute infarct. The paranasal sinuses are clear. The mastoid air cells are clear. The ventricles and sulci demonstrate mild age-related involutional changes. Scattered foci of T2 hyperintensity seen within the periventricular and subcortical white matter are nonspecific but suggestive of mild microvascular ischemic changes. The major vascular flow voids at the skull base are well-maintained. Evidence for prior bilateral lens replacement. IMPRESSION: No acute intracranial abnormality. ACT 112: Negative or not required by law. Electronically signed by: Jatin Restrepo M.D. 01/23/2022 9:45 AM Hospital Course (1) TIA (transient ischemic attack): Reported right sided facial droop, b/l shakiness, slurred speech, etc. at time of admission. All symptoms resolved. Presentation seemed most c/w a TIA event. By report there was no hypoglycemia to explain her event. She did not have any further neurological symptoms or TIA events while here. MRI brain without acute or chronic CVA. CTA head/neck without stenosis, dissection, aneurysm, or any abnormalities. Echo with preserved EF and no thrombus or source for an embolus. No afib/flutter noted on telemetry. Seen by Neurology -- they advised discontinuation of aspirin and changing to bruno vix for secondary prevention. Statin recommended. LDL was already 67 on 5mg of crestor that she had been taking at home. Crestor increased to 10mg/day. High-intensity statin dosing was NOT recommended due to advanced age as well as already at goal lipids. EEG was negative for seizure focus. Plan to set up 30-day event monitor post-d/c to r/o PAF as the cause of her event. This will be mailed to the patient's home with instructions on its use. PT/OT both advised home PT/OT evaluations; social work arranged such at [facility]. (2) Elevated troponin: No evidence of ACS. Likely myocardial demand ischemia in setting of #1 above. May also be minimally elevated due to #3 below. Peak HS troponin was 18. (3) Chronic kidney disease, stage IV (severe): Baseline CrCl 20s. Discharge creatinine was 1.66 (baseline). (4) Diabetic nephropathy: see #3 above (5) Hyperlipidemia: LDL was 67. Given her advanced age and lipid parameters already at goal her statin was only increased to 10mg/day as opposed to high-intensity statin doses. (6) Urinary incontinence: Continue oxybutynin. Urine culture was negative for UTI. (7) Vitamin D deficiency: Continue supplementation. (8) Glaucoma: Continue eye drops. (9) Depression: (10) Dementia: Continue Seroquel HS, donepezil HS. (11) Tremor: none seen while she was hospitalized. TSH 12/2021 wnl. (12) Anemia: likely 2nd to CKD stage 4. ferritin was 34. B12/folate were both wnl. She just had IV iron recently as outpatient - managed by a Dr Mejia - shila/onc - through the [facility] system. recommended to her to have ongoing f/u for the low iron levels. [facility] Attestation I certify that this patient is under my care and that I, or a physicians perinatal breastfeeding assistant working with me, had a face to-face encounter that meets the home health [id number] encounter requirements with this patient. The encounter with the patient was in whole, or in part, for the following medical condition, which is the primary reason for home health care (list medical condition): I certify that, based on my findings, the following services are medically necessary home health services: My clinical findings support the need for the above services because: Further, I certify that my clinical findings support that this patient is homebound (i.e. absences from home require considerable and taxing effort and are for medical reasons or christianity services or infrequently or of short duration when for other reasons) because: Certification for Home Health Services: Based on the above findings, I certify that this patient is confined to the home and needs intermittent senior care care, physical therapy and/or speech therapy or continues to need occupational therapy. The patient is under my care, and I have initiated the establishment of the plan of care. This patient will be followed by a physician who will periodically review the plan of care. Total Time Total Time Spent Total Time Spent (In Minutes): 45 Discharge Plan Discharge Items Patient Disposition: Home - Home Health Services Reason For Visit: Facial droop, slurred speech; concern for stroke Discharge Diagnosis: 1. Transient Ischemic Attack ("TIA") 2. 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 There was concern that perhaps this was due to stroke. Fortunately your MRI of the brain did NOT show an old or new stroke. Your EEG brain wave test did not show seizure. The CT scans of your head and neck did not show blocked arteries, aneurysm, etc. Your echocardiogram (heart ultrasound) was normal - we did not see anything in the heart that would have caused your event. Your heart monitoring was normal. Your event was likely due to a TIA. Please see handout describing TIAs. A TIA event is when a person has neurological symptoms that subsequently resol ve. With a TIA the MRI of the brain is normal. A TIA is not the same thing as a stroke. However, a TIA event is a risk factor for having a future stroke during your lifetime. Recommendations - 1. Please stop your aspirin. In its place take CLOPIDOGREL 75mg once daily. Prescription sent to [facility] for you. Start this tomorrow, 01/25/22. 2. Please INCREASE your crestor (rosuvastatin) cholesterol medication to 10mg once daily. Prescription sent to [facility] for you. Start this tomorrow, 01/25/22. 3. I would STOP your glimepiride diabetes medication. During your stay you did NOT receive this medication and your blood sugars were very well-controlled with only using your lantus. Glimepiride can cause low blood sugars in elderly and in folks who have kidney disease. Thus, please stop the glimepiride at this time. 4. Please complete a 30-day heart monitor at your home. This device will be mailed to you within the next week at your home. It will include instructions on how to use it. The results will be interpreted by a [facility] Ice Guard Inspector and sent to Dr Murdock. This will look for abnormal heart rhythms that can cause TIA and stoke (a.fib, a.flutter, etc). 5. PT/OT services will be set up for you and will come to your home. 6. If you are still driving - please, no driving for the next week. 7. Please follow-up with your blood specialist in [place] who is giving you iron infusions. Your iron level is still modestly low (ferritin - a marker of iron in your body - is only 34). Your hemoglobin today is 9. Your vitamin B12 and folic acid levels today were normal. Follow-up - see Dr Murdock's office within 1 week Return to [facility] if - * you experience any recurrent TIA or stroke symptoms as listed below * you have shortness of breath or chest pain * any other concerns It was our pleasure caring for you! Dr Kinney Addtl Flat Polisher Provider Instructions: Risk Factors for Stroke: You can reduce your chances of stroke by working with your medical provider to adopt a healthy lifestyle. Some specific ways to lower your chance of stroke are: * If you are a smoker, now is the time to stop smoking cigarettes * If you are diabetic, improve the control of your blood sugars * Avoid excessive amounts of alcohol * Control high blood pressure * Lose weight if you are overweight * Be sure to lead an active lifestyle * Eat a healthy diet low in salt, cholesterol and fat You should know about other risk factors for stroke that you are unable to control. These include: * Age 55 years or older * Male gender * Certain racial groups: , or / * Family History of Stroke, Mini stroke or Heart Attack * Sickle Cell Disease Follow Up: It is important for you to keep your follow up appointments with your medical provider. Who to Call and When: Medical Emergencies: Call 911 immediately if you experience any of the following warning signs and symptoms of Stroke: * Sudden numbness or weakness of the face, arm or leg, especially on one side of the body * Sudden confusion, trouble speaking or understanding * Sudden trouble seeing in one or both eyes * Sudden trouble walking, dizziness, loss of balance or coordination * Sudden severe headache with no cause Do not delay calling 911 if you experience any warning signs or symptoms of a stroke. Delay in seeking medical attention may affect what treatments can be given to you. . Pending Studies at Discharge: No Stand-Alone Forms: Medications to Prevent Stroke, My [facility], Smoking Cessation Medications and DC Order Prescriptions: New clopidogrel 75 mg Tablet 75 mg PO QAM Qty: 30 2RF Continued acetaminophen 500 mg capsule 1,000 mg PO BID PRN (Reason: Pain) (DME) pen needle, diabetic [BD Ultra-Fine Sheri Pen Needle] 32 gauge x 5/32" needle See Rx Instructions .ROUTE .MEDSUPPLY Qty: 100 3RF Rx Instructions: use 1 needle daily with Lantus Trintellix 10 mg tablet 10 mg PO DAILY fluticasone propionate [Flonase Allergy Relief] 50 mcg/actuation spray,suspension 2 spray intranasal DAILY PRN (Reason: nasal congestion) Qty: 16 3RF Rx Instructions: administer into each nostril (DME) blood-glucose meter Mis See Rx Instructions .ROUTE .MEDSUPPLY Qty: 1 Rx Instructions: Reli-On brand. Test blood sugar once daily latanoprost 0.005 % drops 1 drp OPB HS Label Comments: OP instill 1 drop in both eyes at bedtime; Rx Instructions: OP instill 1 drop in both eyes at bedtime; donepezil 5 mg tablet 5 mg PO HS ferrous sulfate 325 mg (65 mg iron) tablet 325 mg PO DAILY quetiapine 25 mg tablet 12.5 mg PO HS ascorbic acid (vitamin C) 100 mg tablet 300 mg PO DAILY omega-3 acid ethyl esters 1 gram capsule 1 cap PO BID nystatin 100,000 unit/gram Cream 1 applic TOPICAL BID PRN (Reason: NEEDED FOR SKIN IRRITATION) cholecalciferol (vitamin D3) [Vitamin D3] 25 mcg (1,000 unit) Capsule 50 mcg PO DAILY cyanocobalamin (vitamin B-12) [Vitamin B-12] 500 mcg Lozenge 500 mcg PO DAILY oxybutynin chloride 10 mg tablet extended release 24hr 10 mg PO QAM Rx Instructions: TAKE 1 TABLET DAILY valacyclovir 1 gram tablet 1,000 mg PO BID Rx Instructions: 1 gm BID x 7 days stop on 01/27 prednisolone acetate 1 % drops,suspension 2 drp ophthalmic (eye) DAILY Rx Instructions: aply once daily to both eyes, done on 01/27 erythromycin 5 mg/gram (0.5 %) ointment See Rx Instructions .ROUTE .COMPLEX Rx Instructions: apply thin layer over eyes once daily x 7 days done on 01/24 duloxetine 20 mg capsule,delayed release(DR/EC) 20 mg PO DAILY insulin glargine [Lantus Solostar U-100 Insulin] 100 unit/mL (3 mL) insulin pen 16 unit SUBCUT HS Changed rosuvastatin 10 mg tablet 10 mg PO DAILY Qty: 30 2RF Rx Instructions: note increased dose Discontinued glimepiride 2 mg tablet 2 mg PO DAILY aspirin 81 mg Tablet,Delayed Release (Dr/Ec) 81 mg PO DAILY Discharge Orders: Discharge Order (Routine); Ordered 01/24/22 Ordered By: Rico Guillen/Other Patient Handouts: What Is a TIA?, Stroke: Taking Medicines, Discharge Instructions for Stroke, Risk Factors for Stroke, Stroke Self Care After Admission Data Admit Date/Time: 01/22/22 15:49 Attending Provider: Rico Kinney Admit Provider: Ahsan Kellogg Primary Care Provider: Sophie Murdock Other Providers: Ahsan Kellogg ; Kevin Nina ; Eric Campoverde [facility] Other Interventions: Discharge Summary Assessment (RN) Last Done: 01/24/22 09:24 Coding Level of Care Code 20202 OBS Care - Discharge Diagnoses TIA (transient ischemic attack) G45.9 Elevated troponin R77.8 Chronic kidney disease, stage IV (severe) N18.4 Diabetic nephropathy E11.21 Hyperlipidemia E78.5 Urinary incontinence R32 Vitamin D deficiency E55.9 Glaucoma H40.9 Depression F32.9 Dementia F03.90 Tremor R25.1 Anemia D64.9
== END 2022-01-24 09:45 | disposition home health service (06) ==
LOC: ED 14:42 → 2N 14:42 → SUATTDRO 15:49 → 2N 17:31
DX: R77.8 Other specified abnormalities of plasma proteins; D63.1 Anemia in chronic kidney disease; N18.4 Chronic kidney disease, stage 4 (severe); Z79.4 Long term (current) use of insulin; Z79.82 Long term (current) use of aspirin; Z79.899 Other long term (current) drug therapy; F03.90 Unspecified dementia, unspecified severity, without behavioral disturbance, psychotic disturbance, mood disturbance, and anxiety; E78.5 Hyperlipidemia, unspecified; G45.9 Transient cerebral ischemic attack, unspecified; E55.9 Vitamin D deficiency, unspecified; E11.21 Type 2 diabetes mellitus with diabetic nephropathy

== ENCOUNTER 2023-02-06 10:13 | Inpatient (IN) ==
--- NOTE | 2023-01-29 14:40 | Anesthesiology Consultation ---
Date of Service January 29, 2023 Assessment & Plan (1) Encounter for pre-operative examination: - check BSG, BMP and CBC With diff STAT am DOS. Fluid orders to anesthesiologist discretion after review of completed BMP DOS. - general surgery notified of anemia, to surgeon's discretion and management if anything additional is needed prior to surgery in this regard. - Per customer sales service manager on 01/29/2023: No known infectious disease contacts, current infectious disease symptoms in past 10 days or COVID positive test result in the past 90 days. Chart Review Chart Review: Acceptable Risk for Surgery and Patient NOT seen in Pre Admission Testing History Surgery Operation Date: 02/06/23 12:00 Proposed Procedures p Open Left Hemicolectomy - Javier Mary, DO Height/Weight Height: 5 ft 4.5 in Weight: 69.4 kg Allergies Allergy/AdvReac Type Severity Reaction Status Date / Time adhesive tape AdvReac Mild SKIN Verified 01/29/23 14:01 IRRITATION bandaids AdvReac Mild SKIN Uncoded 01/29/23 14:01 IRRITATION Medications Home Medications Medication Instructions Recorded Confirmed Last Taken donepezil 5 mg tablet 5 mg PO HS 10/19/18 01/29/23 01/11/23 latanoprost 0.005 % eye drops 1 drp OPB HS 10/19/18 01/29/23 01/11/23 quetiapine 25 mg tablet 12.5 mg PO HS 10/19/18 01/29/23 01/11/23 blood-glucose meter #1 ea 09/14/20 01/28/23 Unknown acetaminophen 500 mg capsule 1,000 mg PO BID PRN Pain 11/08/21 01/29/23 01/11/23 clopidogrel 75 mg tablet 75 mg PO QAM #90 tabs 02/19/22 01/29/23 12/14/22 Wheeled Walker #1 ea 03/28/22 01/28/23 Unknown insulin glargine 100 unit/mL (3 16 unit (0.16 mL) subcut QPM #15 mL 04/25/22 01/29/23 01/12/23 20:00 mL) subcutaneous pen (Lantus 8 units Solostar U-100 Insulin) ascorbic acid (vitamin C) 500 mg 500 mg PO QAM 05/29/22 01/29/23 01/11/23 capsule vortioxetine 10 mg tablet 10 mg PO HS 05/29/22 01/29/23 01/11/23 (Trintellix) omega-3 acid ethyl esters 1 gram 1 cap PO BID 08/08/22 01/29/23 01/11/23 capsule BD Ultra-Fine Sheri Pen Needle 32 #100 ea 09/01/22 01/28/23 Unknown gauge x 5/32" (pen needle, diabetic) ferrous sulfate 325 mg (65 mg 325 mg PO Q2D 10/03/22 01/29/23 01/11/23 iron) tablet meclizine 25 mg tablet 25 mg PO TID PRN dizziness or 10/03/22 01/29/23 01/11/23 vertigo #10 tabs oxybutynin chloride 10 mg 10 mg PO QAM #90 tabs 10/20/22 01/29/23 01/11/23 tablet,extended release 24 hr cholecalciferol (vitamin D3) 50 50 mcg PO QAM 11/27/22 01/29/23 01/11/23 mcg (2,000 unit) capsule calcium 600 mg capsule 600 mg PO QAM 01/06/23 01/29/23 01/11/23 vit C 250 mg-vit E 90 mg-zinc 40 1 tab PO QAM 01/06/23 01/29/23 01/11/23 mg-copper 1 [id number] capsule (PreserVision AREDS-2) darbepoetin bao in polysorbat 60 60 mcg subcut .q2wks #4 mL 01/08/23 01/29/23 01/01/23 mcg/mL in polysorbate injection rosuvastatin 10 mg tablet 10 mg PO QAM 01/29/23 01/29/23 Unknown Past Medical History Medical History (Updated 01/29/23 @ 14:31 by Mary Kay Ochoa PA-C) Anemia has been getting procrit injections every 2 weeks w/iron infusions and blood transfusion summer 2022 Cervical spinal stenosis Cervicalgia Chronic kidney disease, stage IV (severe) Chronic low back pain Colon cancer new dx Dementia Depression Diabetes mellitus, type 2 IDDM Diabetic nephropathy Glaucoma Hyperlipidemia Lumbar facet joint syndrome Lumbar spondylosis 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 reason for plavix Urinary incontinence Past Family History Family History Brother Bone cancer Father , @AGE 64 Cardiac disorder Family history of deafness or hearing loss Hypertension Myocardial infarction, Onset Age: 64 Mother Family history of deafness or hearing loss Pancreatic cancer Aunt Breast cancer Denies family history of Family history of bleeding disorder Ovarian cancer Prostate cancer Adverse anesthesia outcome Colorectal cancer Past Surgical History Surgical History History of cataract surgery rt/left History of esophagogastroduodenoscopy (EGD) History of repair of rectocele History of repair of rotator cuff rt History of total abdominal hysterectomy SECONDARY TO PROLAPSED UTERUS Hx of bladder repair surgery Hx of colonoscopy Slow to wake up after anesthesia Social History Smoking Status: Never smoker Do You Dip or Chew Tobacco: No Hx Alcohol Use: No alcohol intake frequency: other substance use type: does not use Lab Results Anesthesia Preop Results Results Anesthesia Widget: WBC 6.88 K/ul (4.8-10.8) 01/29/23 Hgb 8.4 g/dl (12.0-16.0) L 01/29/23 Hct 27.2 % (37.0-47.0) L 01/29/23 Plt 307 K/uL (130-400) 01/29/23 Na 138 mmol/L (136-145) 01/29/23 K 4.3 mmol/L (3.5-5.1) 01/29/23 Cl 106 mmol/L (98-107) 01/29/23 CO2 26 mmol/L (21-32) 01/29/23 BUN 29 mg/dl (6-23) H 01/29/23 Creat 1.47 mg/dl (0.6-1.2) H 01/29/23 Glucose Level 111 mg/dl (70-99(Fasting)) H 01/29/23 POC Glucose 164 mg/dl (70-99) H 01/13/23 Testing Electrocardiogram Date: 01/29/23 Sinus bradycardia with sinus arrhythmia, rate 58 bpm RBBB Chest X-Ray Date: 08/05/22 Negative left rib series No acute cardiopulmonary disease Bilateral hyperinflated lungs may represent excellent inspiratory effort or secondary signs of COPD Echocardiogram Date: 01/23/22 EF 60-65% No regional wall motion abnormalities Mild cLVH No significant valvular abnormalities Type 1 diastolic dysfunction Other Testing Chest CT 01/16/23 1. There is no evidence of intrathoracic metastatic disease. 2. Cardiomegaly. 3. No airspace consolidation or pleural effusion is identified. 4. Diffuse peribronchial thickening suggests bronchitis/reactive airway disease. This is lower lobe predominant and could also potentially be seen with chronic aspiration. Correlate clinically. 5. Additional findings as above. Abdomen pelvis CT 01/16/23 1. No evidence of recurrent or metastatic disease. 2. Bilateral renal lesions are seen, some of which measure greater than simple fluid density. The right lesion is stable from prior exam, however a left inferior pole lesion is not well seen allowing for differences in technique. Nonemergent ultrasound is recommended to exclude solid mass. 3. Additional findings as above. Cardiac event monitor 03/01/22 NSR throughout Rare PACs and PVCs
[~2023-02-06 10:13] MED LIST changes: -ASPI81TA28 PO; -CALC600T9 PO; -CHOL20007 PO; -CYAN100T PO; -DONE5TAB9 PO; -FERR28TA2 PO; -GLPSR/5 PO; +HEPARIN SOD 5,000 UNIT/0.5 ML VIAL SQ SCH; -OMEGCAP2 PO; -OXYB5TAB PO; -QUET1TAB30 PO; -ROSU5TAB PO; -SITA25TA PO; -VITACAP26 PO; -VORT10TA12 PO; +ceFAZolin 2000MG 2,000 MG/15 ML SYR IV SCH
--- NOTE | 2023-02-06 10:36 | History & Physical Bridge Note ---
Date of Service February 06, 2023 History & Physical Bridge Note I have examined the patient, reviewed the History & Physical and in the interval since the performance of the History & Physical I have noted the following changes of clinical significance: no changes noted
[2023-02-06 10:48] LABS: Basophils # (auto) 0.05 K/uL (0.00-0.20); Basophils % (auto) 0.6 %; Eosinophils # (auto) 0.19 K/uL (0.00-0.50); Eosinophils % (auto) 2.4 %; Hematocrit (blood only) 27.6 % (37.0-47.0); Hemoglobin 8.7 g/dl (12.0-16.0); Immature Granulocytes # (auto) 0.04 K/uL (0.01-0.20); Immature Granulocytes % (auto) 0.5 %; Lymphocytes # (auto) 1.16 K/uL (1.20-3.40); Lymphocytes % (auto) 14.9 %; Mean Corpuscular Hemoglobin 26.2 pg (25.0-34.0); Mean Corpuscular Hgb Conc 31.5 g/dL (32.0-36.0); Mean Corpuscular Volume 83.1 fL (80.0-100.0); Mean Platelet Volume 10.8 fL (9.4-12.4); Monocytes # (auto) 0.64 K/uL (0.11-0.59); Monocytes % (auto) 8.2 %; Neutrophils # (auto) 5.72 K/uL (1.40-6.50); Neutrophils % (auto) 73.4 %; Platelet Count 314 K/uL (130-400); RDW Standard Deviation 51.5 fL (36.4-46.3); Red Blood Count 3.32 M/uL (4.20-5.40)
[2023-02-06 11:00] LABS: BUN Creatinine Ratio 14.7 (10-20); Calcium 10.1 mg/dl (8.6-10.3); Creatinine Clr Calc Pharmacy 21.3 ml/min; Est GFR (African American) 29.2 ml/min; Est GFR (Non-African American) 25.2 ml/min; Potassium 4.7 mmol/L (3.5-5.1)
[2023-02-06] MEDS: LACTATED RINGER'S 1,000 ML IV SCH ×3 (11:22→17:21)
[2023-02-06] MEDS ORDERED: LIDOCAINE 2% 2 ML VIAL/AMP(20MG/ML) INFIL ONE (11:44)
[2023-02-06] MEDS ORDERED: fentaNYL citrate PF 100 MCG/2 ML VIAL ONE ×2 (11:44→12:54)
[2023-02-06] MEDS ORDERED: PROPOFOL IV EMULSION 10 MG/ML 20 ML VIAL IV ONE (11:44)
[2023-02-06] MEDS ORDERED: ONDANSETRON INJ 2 MG/ML 2 ML VIAL ONE (11:46)
[2023-02-06] MEDS ORDERED: ROCURONIUM BROMIDE 10 MG/ML 5 ML VIAL IV ONE (12:37)
[2023-02-06] MEDS ORDERED: ePHEDrine sulfate 50 MG/5 ML SYR ONE (12:38)
[2023-02-06] MEDS ORDERED: LABETALOL HCL IV 5 MG/ML 20ML IV ONE (13:45)
[2023-02-06] MEDS ORDERED: SUGAMMADEX SODIUM 200 MG/2 ML VIAL IV ONE (13:46)
--- NOTE | 2023-02-06 14:03 | Operative Report ---
PG Post Operative Report Pre & Post Diagnosis Operation Date: 02/06/23 12:00 Pre-Op Diagnosis: Colon Cancer Post-Op Diagnosis: Right Colon Cancer I identified the patient and participated in the time-out.: Yes Procedure Operation Date: 02/06/23 12:00 Actual Procedures p Open Right Hemicolectomy(Right) - Javier Mary DO Surgeon Javier Mary DO Radiologic Therapist lula major Estimated Blood Loss 10 Findings Consistent with Post-Op Diagnosis Specimens terminal ileum, cecum, right colon, portion of transverse colon Description of Procedure After informed consent was obtained the patient was taken to the operating room and placed in supine position. After successful intubation the patient was placed in a low lithotomy position and Vera catheter was placed. The abdomen and perineum were both sterilely prepped and draped in usual fashion. I began by making a midline incision from above the umbilicus down to pubic symphysis. This was carried down through the soft tissue using cautery. The midline was opened using cautery as well and blunt finger penetration used to enter the peritoneum. Cautery was used to open the incision to both poles. There was some discrepancy in the chart. The endoscopic report suggested the growth was in the descending colon but the pathology report suggests it was in the ascending colon. We ran the entire large bowel and in fact that the tattoo farida was over in the cecum. There was no other palpable abnormalities. I mobilized the right colon along the white line of Toldt using finger fractionation and cautery. We carried this up and around the hepatic flexure to the mid transverse colon. I then transected the terminal ileum with a GABRIELLE brown cartridge 60 mm stapler. We then found an area in the transverse colon just proximal to the middle colic vessels. This was transected using a GABRIELLE a brown cartridge stapler as well. LigaSure was used to take down the mesentery staying as low as possible to obtain as many lymph nodes as possible. The specimen which contained terminal ileum cecum right colon and portion of transverse colon was passed off to be sent to pathology. Next we performed a [id number]-[id number] small bowel to transverse colon anastomosis. We used a GABRIELLE brown cartridge 60 mm linear stapler. The common enterotomy was closed in 2 layers with a handsewn technique using 3-0 Monocryl for serosal/mucosal layers followed by 3-0 silk for an outer layer in Lembert fashion. A crotch stitch was also placed using 3-0 silk. The mesenteric defect was closed using 2-0 Vicryl in a running fashion. The anastomosis was patent and there was no evidence of any ischemia. We thoroughly irrigated the entire abdomen. There was adequate hemostasis. Again no other visible or palpable abnormalities were noted. The fascia was closed using 0-looped PDS starting at the lower pole and running to the superior pole. Soft tissue was irrigated and skin was closed using skin lino. Silver dressing gauze and tape were used as a dressing. The patient was awakened extubated and transferred to recovery in stable condition. My nurse practitioner was present for the entire case was instrumental in assisting ,providing exposure,helping with the anastomosis wound closure and dressing placement. I attest to the content of the Intraoperative Record and any orders documented therein. Any exceptions are noted below.
[2023-02-06] MEDS ORDERED: PROMETHAZINE HCL 6.25 MG in SODIUM CHLORIDE 0.9% 50 ML IV PRN (14:20)
[2023-02-06] MEDS ORDERED: hydrALAZINE HCL 20 MG/ML VIAL IV STA (14:40)
[2023-02-06] MEDS ORDERED: hydrALAZINE HCL 20 MG/ML VIAL ONE (14:42)
[2023-02-06] MEDS ORDERED: ATROPINE SULFATE 0.1 MG/ML 10ML SYR IV PRN (14:44)
[2023-02-06] MEDS ORDERED: NALOXONE HCL 0.4 MG/1 ML VIAL/CARP IV PRN (14:44)
[2023-02-06] MEDS ORDERED: ONDANSETRON INJ 2 MG/ML 2 ML VIAL IV PRN (14:44)
[2023-02-06] MEDS ORDERED: fentaNYL citrate PF 100 MCG/2 ML VIAL IV PRN (14:44)
[2023-02-06] MEDS ORDERED: PROMETHAZINE HCL 12.5 MG in SODIUM CHLORIDE 0.9% 50 ML IV PRN (14:44)
[2023-02-06] MEDS ORDERED: ePHEDrine sulfate 50 MG/ML AMP IV PRN (14:44)
[2023-02-06] MEDS ORDERED: ACETAMINOPHEN 1000 MG/100 ML IV IV ONE (15:13)
[2023-02-06] MEDS ORDERED: ACETAMINOPHEN 1,000 MG/100 ML VIAL IV STA (15:29)
[2023-02-06 15:37] LABS: Hematocrit (blood only) 24.3 % (37.0-47.0); Hemoglobin 7.4 g/dl (12.0-16.0)
--- NOTE | 2023-02-06 15:48 | Anesthesiology Progress Note ---
Date of Service February 06, 2023 Anesthesia Post Procedure Vital Signs Vital Signs: Temp Pulse Pulse Resp BP BP Pulse Ox 02/06/23 15:30 57 L 17 139/61 95 02/06/23 15:20 57 L 19 127/57 L 96 02/06/23 14:30 55 L 17 167/81 H 100 02/06/23 15:10 58 L 19 135/63 96 02/06/23 15:00 61 20 170/76 H 97 02/06/23 14:50 57 L 19 161/68 H 96 02/06/23 14:40 58 L 19 174/79 H 98 02/06/23 14:20 53 L 16 163/74 H 100 02/06/23 14:14 36 C L 54 L 18 141/71 H 100 02/06/23 11:03 36.5 C 67 18 133/57 L 100 O2 Del Method O2 Flow Rate 02/06/23 15:30 Room Air 02/06/23 15:20 Room Air 02/06/23 14:30 Oxymask 5 02/06/23 15:10 Room Air 02/06/23 15:00 Room Air 02/06/23 14:50 Room Air 02/06/23 14:40 Room Air 02/06/23 14:20 Oxymask 5 02/06/23 14:14 Oxymask 5 02/06/23 11:03 Room Air Transfer of Care Handoff Completed per policy Notes Mental Status: alert / awake / arousable Patient Amnestic to Procedure: Yes Nausea / Vomiting: adequately controlled Pain: adequately controlled Airway Patency, RR, SpO2: stable & adequate BP & HR: stable & adequate Hydration State: stable & adequate Anesthetic Complications: no major complications apparent
[2023-02-06] MEDS ORDERED: GLUCAGON FOR INJ 1 MG VIAL SQ PRN (16:29)
[2023-02-06] MEDS ORDERED: GLUCOSE 10 TAB/TUBE PO PRN (16:29)
[2023-02-06] MEDS ORDERED: GLUCOSE 40% GEL 15 GM TUBE PO PRN (16:29)
[2023-02-06] MEDS ORDERED: HYDROmorphone INJ 0.5 MG/0.5 ML SYR IV PRN (16:29)
[2023-02-06] MEDS ORDERED: PHARMACY GLYCEMIC MGMT CONSULT PRN (16:29)
[2023-02-06] MEDS ORDERED: CARBOHYDRATES FOR HYPOGLYCEMIA PO PRN (16:29)
[2023-02-06] MEDS ORDERED: DEXTROSE 50% 50 ML SYRINGE IV PRN (16:29)
[2023-02-06] MEDS ORDERED: INSULIN ASPART PER UNIT CHARGE SC SCH (16:30)
[2023-02-06] MEDS ORDERED: LANTUS PER UNIT CHARGE SC SCH (17:00)
[2023-02-06] MEDS: ACETAMINOPHEN 1,000 MG/100 ML VIAL IV SCH ×2 (17:20→23:58)
[2023-02-06] MEDS: INSULIN ASPART PER UNIT CHARGE SC SCH ×2 (17:36→21:50)
[2023-02-06] MEDS: ceFAZolin 1000MG 1,000 MG/7.5 ML SYR IV SCH (19:33)
[2023-02-06] MEDS ORDERED: SODIUM CHLORIDE 0.9% 250 ML IV PRN (20:15)
[2023-02-06] MEDS: DONEPEZIL HCL 5 MG TAB PO SCH (21:50)
[2023-02-06] MEDS: QUEtiapine FUMARATE 25 MG TABLET PO SCH (21:51)
[2023-02-06] MEDS: HYDROmorphone INJ 0.5 MG/0.5 ML SYR IV PRN (21:52)
[2023-02-07] MEDS: INSULIN ASPART PER UNIT CHARGE SC SCH ×6 (00:12→21:37)
[2023-02-07] MEDS: LACTATED RINGER'S 1,000 ML IV SCH ×3 (02:29→21:40)
[2023-02-07] MEDS: ceFAZolin 1000MG 1,000 MG/7.5 ML SYR IV SCH ×2 (03:35→12:27)
[2023-02-07] MEDS: ACETAMINOPHEN 1,000 MG/100 ML VIAL IV SCH ×3 (05:47→21:37)
[2023-02-07 07:42] LABS: Basophils # (auto) 0.02 K/uL (0.00-0.20); Basophils % (auto) 0.2 %; Hematocrit (blood only) 27.3 % (37.0-47.0); Immature Granulocytes # (auto) 0.04 K/uL (0.01-0.20); Immature Granulocytes % (auto) 0.4 %; Lymphocytes # (auto) 0.93 K/uL (1.20-3.40); Lymphocytes % (auto) 8.3 %; Mean Corpuscular Hemoglobin 26.9 pg (25.0-34.0); Mean Corpuscular Volume 81.5 fL (80.0-100.0); Mean Platelet Volume 11.6 fL (9.4-12.4); Monocytes # (auto) 1.01 K/uL (0.11-0.59); Neutrophils % (auto) 82.1 %; Platelet Count 267 K/uL (130-400); RDW Coefficient of Variation 16.3 % (11.5-14.5); RDW Standard Deviation 48.1 fL (36.4-46.3); Red Blood Count 3.35 M/uL (4.20-5.40)
[2023-02-07 08:11] LABS: BUN Creatinine Ratio 16.2 (10-20); Calcium 9.1 mg/dl (8.6-10.3); Creatinine Clr Calc Pharmacy 21.7 ml/min; Est GFR (Non-African American) 25.9 ml/min; Potassium 4.2 mmol/L (3.5-5.1)
[2023-02-07] MEDS: CHOLECALCIFEROL 1,000 UNITS 25 MCG TAB PO SCH (09:09)
[2023-02-07] MEDS: ASCORBIC ACID 500 MG TAB PO SCH (09:09)
[2023-02-07] MEDS: HYDROmorphone INJ 0.5 MG/0.5 ML SYR IV PRN (09:13)
--- NOTE | 2023-02-07 10:03 | Surgery Progress Note ---
Date of Service February 07, 2023 Assessment & Plan (1) Colon cancer: Plan: Postoperative day #1 Doing as expected Out of bed to chair today Stay on clear liquids which she is tolerating Monitor labs We will hold on DVT prophylaxis other than SCDs until I check her labs tomorrow morning Admission and Anticipated Discharge Date Admission Date: February 06, 2023 Subjective Patient seen. Doing okay. Her temperature is now in the normal range. Hemoglobin is up to 9 after transfusion. She does have some abdominal discomfort. She denies nausea Physical Exam Physical Exam: Alert. Appears to be in mild discomfort. Abdomen is soft with expected tenderness. Results & Data Vital Signs (Past 12 Hours) Vital Signs Temp Pulse Pulse Pulse Resp BP BP 02/07/23 08:00 02/07/23 08:17 36.7 C 73 16 156/74 H 02/07/23 03:37 36.6 C 71 16 123/67 02/07/23 02:31 36.5 C 02/06/23 23:54 36.5 C 74 16 123/65 02/06/23 23:54 36.5 C 74 16 123/65 02/06/23 23:05 36.5 C 76 18 113/59 L 02/06/23 23:16 36.5 C 76 18 113/59 L 02/06/23 22:06 36.5 C 76 18 113/59 L 02/06/23 22:05 36.7 C 70 15 109/63 Pulse Ox O2 Del Method 02/07/23 08:00 Room Air 02/07/23 08:17 96 Room Air 02/07/23 03:37 98 Room Air 02/07/23 02:31 02/06/23 23:54 95 02/06/23 23:54 95 02/06/23 23:05 96 02/06/23 23:16 96 Room Air 02/06/23 22:06 96 02/06/23 22:05 PG Care Time/CCT Total # of Minutes Spent Total Time Spent with Patient: Total time spent is greater than 50% in coordination of care (as documented) at patient's floor/unit and/or counseling patient: Coding Level of Care Code 30060 Post Operative Follow-Up Diagnoses Colon cancer C18.9
[2023-02-07] MEDS ORDERED: LANTUS PER UNIT CHARGE SC SCH (16:30)
[2023-02-07] MEDS: QUEtiapine FUMARATE 25 MG TABLET PO SCH (20:04)
[2023-02-07] MEDS: DONEPEZIL HCL 5 MG TAB PO SCH (20:04)
[2023-02-08] MEDS: ACETAMINOPHEN 1,000 MG/100 ML VIAL IV SCH ×3 (05:09→21:21)
[2023-02-08] MEDS: INSULIN ASPART PER UNIT CHARGE SC SCH ×4 (08:22→21:22)
[2023-02-08] MEDS: LACTATED RINGER'S 1,000 ML IV SCH ×2 (08:23→17:18)
[2023-02-08] MEDS: CHOLECALCIFEROL 1,000 UNITS 25 MCG TAB PO SCH (08:29)
[2023-02-08] MEDS: ASCORBIC ACID 500 MG TAB PO SCH (08:29)
[2023-02-08 09:13] LABS: Basophils # (auto) 0.03 K/uL (0.00-0.20); Basophils % (auto) 0.3 %; Eosinophils # (auto) 0.16 K/uL (0.00-0.50); Eosinophils % (auto) 1.6 %; Hematocrit (blood only) 25.4 % (37.0-47.0); Immature Granulocytes # (auto) 0.05 K/uL (0.01-0.20); Immature Granulocytes % (auto) 0.5 %; Lymphocytes # (auto) 1.09 K/uL (1.20-3.40); Lymphocytes % (auto) 10.7 %; Mean Corpuscular Hemoglobin 26.9 pg (25.0-34.0); Mean Corpuscular Hgb Conc 31.5 g/dL (32.0-36.0); Mean Corpuscular Volume 85.5 fL (80.0-100.0); Monocytes # (auto) 0.84 K/uL (0.11-0.59); Monocytes % (auto) 8.3 %; Neutrophils # (auto) 7.99 K/uL (1.40-6.50); Neutrophils % (auto) 78.6 %; Platelet Count 226 K/uL (130-400); RDW Coefficient of Variation 16.7 % (11.5-14.5); RDW Standard Deviation 52.2 fL (36.4-46.3); Red Blood Count 2.97 M/uL (4.20-5.40); White Blood Count 10.16 K/ul (4.8-10.8)
[2023-02-08 09:26] LABS: BUN Creatinine Ratio 14.3 (10-20); Calcium 9.1 mg/dl (8.6-10.3); Creatinine Clr Calc Pharmacy 28.3 ml/min; Est GFR (African American) 41.3 ml/min; Est GFR (Non-African American) 35.6 ml/min; Potassium 4.1 mmol/L (3.5-5.1)
--- NOTE | 2023-02-08 09:37 | Surgery Progress Note ---
Date of Service February 08, 2023 Assessment & Plan (1) Colon cancer: Plan: Postoperative day #2 She is doing well so far Stay on clear liquids until return of bowel function We will remove her Vera catheter today. Try again today to get out of bed into a chair. Admission and Anticipated Discharge Date Admission Date: February 06, 2023 Subjective Patient seen. States she is feeling quite a bit better than yesterday. Pain is improving. No nausea or vomiting and she is tolerating clear liquids Physical Exam Physical Exam: Alert. No acute distress Her abdomen is soft with expected tenderness. Dressings are clean and dry. Results & Data Vital Signs (Past 12 Hours) Vital Signs Temp Pulse Resp BP Pulse Ox O2 Del Method 02/08/23 09:03 36.8 C 80 16 181/76 H 96 Room Air PG Care Time/CCT Total # of Minutes Spent Total Time Spent with Patient: Total time spent is greater than 50% in coordination of care (as documented) at patient's floor/unit and/or counseling patient: Coding Level of Care Code 57558 Post Operative Follow-Up Diagnoses Colon cancer C18.9
--- NOTE | 2023-02-08 15:15 | Pharmacy Report ---
Pharmacy Glycemic Short Note 2 - Date of Service February 08, 2023 - Glycemic Short BSG Results (Last 24 hours): 02/07/23 02/07/23 02/08/23 16:59 20:19 08:05 Glucose POC Glucose 109 H 89 70 02/08/23 02/08/23 08:37 11:37 Glucose 73 POC Glucose 75 OUTPATIENT ANTIDIABETIC REGIMEN: * Lantus 20 units SQ qPM * A1c = 8% ASSESSMENT: * Keren is a 87 yo T2DM s/p open right hemicolectomy * Tolerating clear liquid diet per surgery. No nausea or vomiting. * Patient received Lantus 10 units on 02/06. This was reduced to 8 units on 02/07. Fasting continues to trend downward and was below goal this am at 70 mg/dL. Will hold further basal insulin for now. * Continue weight based Novolog for now (~stress 2) PLAN FOR INPATIENT GLYCEMIC CONTROL: * Hold outpatient oral diabetes medications * Basal insulin * hold * Bolus insulin * NovoLog per scale ACHS or Q6hrs while NPO * Goal Range: Low 110 mg/dL - High 140 mg/dL * Correction Factor: 30 mg/dL/unit * Nutritional / Prandial insulin per carb ratio of 1 unit per 12 grams CHO consumed
--- NOTE | 2023-02-08 18:52 | Hospitalist Progress Note ---
Date of Service February 08, 2023 Assessment & Plan (1) Elevated blood pressure reading: Plan: her blood pressures are quite elevated, but she appears to be absolutely asymptomaticno headache/ blurred vision/confusion, no chest pain/anginal type symptoms, no shortness of breath/orthopnea or CHF type symptoms. Further on review of her outpatient records, it appears that she tends to run pretty normotensive. Given that she is asymptomatic from a hypertension standpoint, and postop with some degree of discomfort, I suspect her blood pressure is reactive. Generally speaking the evidence would support not to "treating the number" unless either she has symptoms related to her hypertension, is here with a diagnosis that blood pressure management is part and parcel of the management of (i.e. stroke), or if her overall readings suggest that she simply has poorly controlled baseline hypertension and did not know itshe appears to be none of the 3. To that end, would continue to follow her, but would refrain from treating, as "treating the number" often causes more iatrogenic harm than benefit in the inpatient setting. (2) Chronic kidney disease, stage IV (severe): Plan: Basic metabolic panel in the morning Admission and Anticipated Discharge Date Admission Date: February 06, 2023 Subjective feeling ok overall. eating a popsicle some belly pain but imprvoing overall. no headache/blurred vision, no chest pain, no sob no orthopnea. Outpatient records reviewed, blood pressure seems to run pretty normal most of the time. Review of Systems Review of Systems: All systems reviewed & are unremarkable except as noted in HPI & below Physical Exam Physical Exam: In general she is awake and alert pleasant no distress, eating a blue popsicle with no problem. Breathing unlabored no accessory muscle use good effort. Skin shows no rashes no pallor or icterus. Neuro without focal deficits. Results & Data Results & Data Vital Signs (Past 12 Hours) Vital Signs Temp Pulse Resp BP Pulse Ox O2 Del Method 02/08/23 15:29 98.1 F 84 16 200/83 H 97 Room Air 02/08/23 09:03 98.2 F 80 16 181/76 H 96 Room Air PG Care Time/CCT Total # of Minutes Spent Total Time Spent with Patient: Total time spent is greater than 50% in coordination of care (as documented) at patient's floor/unit and/or counseling patient: Coding Level of Care Code 62737 SUB INP/OBS CARE 50MIN Diagnoses Elevated blood pressure reading R03.0 Chronic kidney disease, stage IV (severe) N18.4
--- NOTE | 2023-02-08 18:52 | Billing Data ---
Date of Service February 08, 2023 Coding Level of Care Code 55539 SUB INP/OBS CARE
[2023-02-08] MEDS: QUEtiapine FUMARATE 25 MG TABLET PO SCH (19:59)
[2023-02-08] MEDS: DONEPEZIL HCL 5 MG TAB PO SCH (19:59)
[2023-02-09] MEDS: HYDROmorphone INJ 0.5 MG/0.5 ML SYR IV PRN (01:35)
[2023-02-09] MEDS: LACTATED RINGER'S 1,000 ML IV SCH ×2 (03:50→16:42)
[2023-02-09] MEDS: ACETAMINOPHEN 1,000 MG/100 ML VIAL IV SCH ×2 (05:23→14:32)
--- NOTE | 2023-02-09 07:05 | Hospitalist Progress Note ---
Date of Service February 09, 2023 Assessment & Plan (1) Elevated blood pressure reading: Plan: -Asymptomatic elevated blood pressure reading. -Resolved without any intervention. Most likely reactive to surgery. -Recommend follow-up with PCP for blood pressure check 1 to 2 weeks after discharge. (2) Chronic kidney disease, stage IV (severe): Plan: - Creatinine of 1.15 on morning labs. - No changes at this time. Plan We will sign off on patient at this time. Recommend follow-up with PCP 1 to 2 weeks after discharge. Admission and Anticipated Discharge Date Admission Date: February 06, 2023 Supervising Physician Co-Signing Physician Notes Attending attestation Pt seen and examined in concert with Dr. Huggins. In agreement with the documented findings as noted in the resident documentation with any exceptions or additions as noted here. Resting comfortably in chair at bedside without acute complaint presently. On examination, S1/S2 nl RRR no MCG. CTAB. Abd NT/ND BS+ve Elevated blood pressures - continue monitoring, likely pain s/p procedure CKD IV - Cr 1.15. Avoid nephrotoxic medications. Else see resident documentation as noted. Subjective Patient was seen bedside this morning. She has some abdominal pain but is otherwise doing well. Denies any headache, palpitations, lightheadedness, nausea, vomiting, chest pain, or urinary symptoms. Review of Systems Review of Systems: All systems reviewed & are unremarkable except as noted in Subjective Physical Exam Physical Exam: Constitutional: well-appearing, no acute distress HEENT: NCAT, no conjunctival injection CV: regular rhythm, no murmur appreciated, extremities well-perfused, no LE edema Resp: CTABL, no wheezes/rales/rhonchi appreciated, no increased work of breathing GI: soft, nondistended, nontender, BS normoactive MSK: no gross deformities appreciated Skin: warm, dry, no rash appreciated Neuro: alert, oriented, no focal neurologic deficit appreciated Results & Data Results & Data Vital Signs (Past 12 Hours) Vital Signs Temp Pulse Resp BP Pulse Ox O2 Del Method 02/08/23 20:00 Room Air 02/08/23 20:55 36.7 C 78 16 199/91 H 98 Room Air 02/08/23 19:10 84 190/79 H Resident Activity Tracking Resident Involvement: Resident Care Provided Care Provided: Adult Hospital Medicine
[2023-02-09 07:43] LABS: Basophils # (auto) 0.03 K/uL (0.00-0.20); Basophils % (auto) 0.4 %; Eosinophils # (auto) 0.42 K/uL (0.00-0.50); Eosinophils % (auto) 5.2 %; Hematocrit (blood only) 25.2 % (37.0-47.0); Hemoglobin 7.9 g/dl (12.0-16.0); Immature Granulocytes # (auto) 0.04 K/uL (0.01-0.20); Immature Granulocytes % (auto) 0.5 %; Lymphocytes # (auto) 0.93 K/uL (1.20-3.40); Lymphocytes % (auto) 11.5 %; Mean Corpuscular Hemoglobin 26.8 pg (25.0-34.0); Mean Corpuscular Hgb Conc 31.3 g/dL (32.0-36.0); Mean Corpuscular Volume 85.4 fL (80.0-100.0); Mean Platelet Volume 10.7 fL (9.4-12.4); Monocytes # (auto) 0.65 K/uL (0.11-0.59); Neutrophils # (auto) 6.03 K/uL (1.40-6.50); Neutrophils % (auto) 74.4 %; Platelet Count 228 K/uL (130-400); RDW Coefficient of Variation 16.6 % (11.5-14.5); RDW Standard Deviation 51.8 fL (36.4-46.3); Red Blood Count 2.95 M/uL (4.20-5.40)
[2023-02-09 08:07] LABS: BUN Creatinine Ratio 13.9 (10-20); Calcium 9.1 mg/dl (8.6-10.3); Creatinine Clr Calc Pharmacy 32.7 ml/min; Est GFR (African American) 49.2 ml/min; Est GFR (Non-African American) 42.4 ml/min
[2023-02-09 08:28] LABS: Hypochromasia Present
[2023-02-09] MEDS: ASCORBIC ACID 500 MG TAB PO SCH (08:45)
[2023-02-09] MEDS: CHOLECALCIFEROL 1,000 UNITS 25 MCG TAB PO SCH (08:45)
[2023-02-09] MEDS: INSULIN ASPART PER UNIT CHARGE SC SCH ×4 (08:45→20:47)
--- NOTE | 2023-02-09 09:06 | Surgery Progress Note ---
Date of Service February 09, 2023 Assessment & Plan (1) Colon cancer: Plan: Doing well. Awaiting return of bowel function. Stay on clear liquid for now. If H&H stable we will start Lovenox today. Admission and Anticipated Discharge Date Admission Date: February 06, 2023 Subjective Patient seen. No new complaints. No nausea or vomiting tolerating clear liquids. Continues to have pain but is improving daily. Physical Exam Physical Exam: Alert no acute distress Her incision is clean dry with no redness or drainage Results & Data Vital Signs (Past 12 Hours) Vital Signs Temp Pulse Resp BP Pulse Ox O2 Del Method 02/09/23 07:47 36.8 C 79 16 135/83 94 Room Air PG Care Time/CCT Total # of Minutes Spent Total Time Spent with Patient: Total time spent is greater than 50% in coordination of care (as documented) at patient's floor/unit and/or counseling patient: Coding Level of Care Code 57682 Post Operative Follow-Up Diagnoses Colon cancer C18.9
[2023-02-09] MEDS: ENOXAPARIN INJ 30 MG/0.3 ML SYR SQ SCH (10:49)
--- NOTE | 2023-02-09 13:56 | Pharmacy Report ---
Pharmacy Glycemic Short Note 2 - Date of Service February 09, 2023 - Glycemic Short BSG Results (Last 24 hours): 02/08/23 02/08/23 02/09/23 16:52 20:46 07:10 Glucose 93 POC Glucose 106 H 131 H 02/09/23 02/09/23 07:23 11:26 Glucose POC Glucose 96 117 H OUTPATIENT ANTIDIABETIC REGIMEN: * Lantus 20 units SQ qPM * A1c = 8% ASSESSMENT: 02/09: * Keren did not receive any insulin yesterday * She continues on a clear liquid diet, anticipate higher need for insulin once diet advances. * Continue Novolog at weight based stress of 2 with increase goal range until diet advanced to prevent hypoglycemia. 02/08: * Keren is a 87 yo T2DM s/p open right hemicolectomy * Tolerating clear liquid diet per surgery. No nausea or vomiting. * Patient received Lantus 10 units on 02/06. This was reduced to 8 units on 02/07. Fasting continues to trend downward and was below goal this am at 70 mg/dL. Will hold further basal insulin for now. * Continue weight based Novolog for now (~stress 2) PLAN FOR INPATIENT GLYCEMIC CONTROL: * Hold outpatient oral diabetes medications * Basal insulin * hold * Bolus insulin * NovoLog per scale ACHS or Q6hrs while NPO * Goal Range: Low 120 mg/dL - High 160 mg/dL * Correction Factor: 30 mg/dL/unit * Nutritional / Prandial insulin per carb ratio of 1 unit per 12 grams CHO consumed
[2023-02-09] MEDS: DONEPEZIL HCL 5 MG TAB PO SCH (20:46)
[2023-02-09] MEDS: QUEtiapine FUMARATE 25 MG TABLET PO SCH (20:46)
[2023-02-10] MEDS: LACTATED RINGER'S 1,000 ML IV SCH (02:21)
[2023-02-10] MEDS: ACETAMINOPHEN 325 MG TAB PO PRN (03:04)
[2023-02-10 08:16] LABS: Basophils # (auto) 0.02 K/uL (0.00-0.20); Basophils % (auto) 0.5 %; Eosinophils # (auto) 0.31 K/uL (0.00-0.50); Eosinophils % (auto) 7.2 %; Hematocrit (blood only) 26.3 % (37.0-47.0); Hemoglobin 8.1 g/dl (12.0-16.0); Immature Granulocytes # (auto) 0.03 K/uL (0.01-0.20); Immature Granulocytes % (auto) 0.7 %; Lymphocytes # (auto) 0.94 K/uL (1.20-3.40); Lymphocytes % (auto) 21.9 %; Mean Corpuscular Hemoglobin 26.3 pg (25.0-34.0); Mean Corpuscular Hgb Conc 30.8 g/dL (32.0-36.0); Mean Corpuscular Volume 85.4 fL (80.0-100.0); Mean Platelet Volume 10.5 fL (9.4-12.4); Monocytes # (auto) 0.58 K/uL (0.11-0.59); Monocytes % (auto) 13.5 %; Neutrophils # (auto) 2.42 K/uL (1.40-6.50); Neutrophils % (auto) 56.2 %; Platelet Count 276 K/uL (130-400); RDW Coefficient of Variation 16.2 % (11.5-14.5); RDW Standard Deviation 50.6 fL (36.4-46.3); Red Blood Count 3.08 M/uL (4.20-5.40)
--- NOTE | 2023-02-10 08:29 | Surgery Progress Note ---
Date of Service February 10, 2023 Assessment & Plan (1) H/O right hemicolectomy: Plan: Patient just returning from [facility] with nurse to bed reports abdominal pain a 11/20 Has had 4 BMs yesterday Denies CP, SOB, Fever, Chills, N/V Tolerating clears , Will advance to fulls WBC 4.3 , BMP pending H/H 8.1/26.3 pt started on Lovenox 30mg SQ/Daily DVT prophylaxis Will D/C IV fluids since tolerating diet VSS other than hypertensive, consulted hospitalist they feel is likely situational and rec. pt f/u with PCP O/p in 1-2 after D/C Will continue to monitor Admission and Anticipated Discharge Date Admission Date: February 06, 2023 Subjective Patient just returning from [facility] with nurse to bed reports abdominal pain a 11/20 Has had 4 BMs yesterday Denies CP, SOB, Fever, Chills, N/V Tolerating clears Patient seen. As above. Multiple bowel movements. Continue to have some incisional pain but otherwise doing well. We will advance her to full liquid diet. Planning for potential discharge Review of Systems Constitutional: + sweats; no fever and no chills Respiratory: no dyspnea Cardiovascular: no chest pain Gastrointestinal: + abdominal pain; no nausea and no vomiting Genitourinary: no problem reported Physical Exam Physical Exam: alert, oriented Constitutional: cooperative and comfortable; no acute distress Respiratory: normal respiratory effort and able to speak in complete sentences; no respiratory distress Cardiovascular: Rate/Rhythm: + tachycardic (94) Remains hypertensive / Gastrointestinal (Abdomen): Inspection/Auscultation: + abdominal surgical incision (midline lino , covered with abd pad, CDI); abdomen not distended Percussion/Palpation: + abdomen tender and abdomen soft; no guarding Results & Data Vital Signs (Past 12 Hours) Vital Signs Temp Pulse Resp BP Pulse Ox O2 Del Method 02/09/23 22:54 Room Air 02/09/23 20:39 98.4 F 94 H 18 182/82 H 97 Room Air PG Care Time/CCT Total # of Minutes Spent Total Time Spent with Patient: Total time spent is greater than 50% in coordination of care (as documented) at patient's floor/unit and/or counseling patient: Coding Level of Care Code 13300 Post Operative Follow-Up Diagnoses H/O right hemicolectomy Z90.49
[2023-02-10 08:39] LABS: BUN Creatinine Ratio 13.9 (10-20); Calcium 9.1 mg/dl (8.6-10.3); Creatinine Clr Calc Pharmacy 34.8 ml/min; Est GFR (African American) 53.1 ml/min; Est GFR (Non-African American) 45.8 ml/min
[2023-02-10] MEDS: ENOXAPARIN INJ 30 MG/0.3 ML SYR SQ SCH (08:54)
[2023-02-10] MEDS: ASCORBIC ACID 500 MG TAB PO SCH (08:54)
[2023-02-10] MEDS: CHOLECALCIFEROL 1,000 UNITS 25 MCG TAB PO SCH (08:54)
[2023-02-10] MEDS: INSULIN ASPART PER UNIT CHARGE SC SCH ×4 (08:59→21:01)
[2023-02-10] MEDS: QUEtiapine FUMARATE 25 MG TABLET PO SCH (21:00)
[2023-02-10] MEDS: DONEPEZIL HCL 5 MG TAB PO SCH (21:00)
[2023-02-10] MEDS: oxyCODONE/ACETAMINOPHEN 5mg/325mg TAB PO PRN (21:32)
[2023-02-11] MEDS: ASCORBIC ACID 500 MG TAB PO SCH (08:28)
[2023-02-11] MEDS: INSULIN ASPART PER UNIT CHARGE SC SCH ×4 (08:29→21:16)
[2023-02-11] MEDS: CHOLECALCIFEROL 1,000 UNITS 25 MCG TAB PO SCH (08:29)
[2023-02-11] MEDS: ENOXAPARIN INJ 30 MG/0.3 ML SYR SQ SCH (08:29)
[2023-02-11 08:35] LABS: Basophils # (auto) 0.02 K/uL (0.00-0.20); Basophils % (auto) 0.4 %; Eosinophils # (auto) 0.36 K/uL (0.00-0.50); Eosinophils % (auto) 7.8 %; Hematocrit (blood only) 26.3 % (37.0-47.0); Hemoglobin 8.3 g/dl (12.0-16.0); Immature Granulocytes # (auto) 0.04 K/uL (0.01-0.20); Immature Granulocytes % (auto) 0.9 %; Lymphocytes # (auto) 0.66 K/uL (1.20-3.40); Lymphocytes % (auto) 14.2 %; Mean Corpuscular Hemoglobin 26.9 pg (25.0-34.0); Mean Corpuscular Hgb Conc 31.6 g/dL (32.0-36.0); Mean Corpuscular Volume 85.4 fL (80.0-100.0); Mean Platelet Volume 10.2 fL (9.4-12.4); Monocytes # (auto) 0.75 K/uL (0.11-0.59); Monocytes % (auto) 16.2 %; Neutrophils # (auto) 2.81 K/uL (1.40-6.50); Neutrophils % (auto) 60.5 %; Platelet Count 283 K/uL (130-400); RDW Coefficient of Variation 16.3 % (11.5-14.5); RDW Standard Deviation 51.2 fL (36.4-46.3); Red Blood Count 3.08 M/uL (4.20-5.40); White Blood Count 4.64 K/ul (4.8-10.8)
[2023-02-11 08:41] LABS: BUN Creatinine Ratio 11.1 (10-20); Calcium 8.9 mg/dl (8.6-10.3); Creatinine Clr Calc Pharmacy 32.1 ml/min; Est GFR (African American) 48.2 ml/min; Est GFR (Non-African American) 41.6 ml/min; Potassium 3.9 mmol/L (3.5-5.1)
[2023-02-11] MEDS ORDERED: LANTUS PER UNIT CHARGE SC SCH (12:00)
--- NOTE | 2023-02-11 12:02 | Surgery Progress Note ---
Date of Service February 11, 2023 Assessment & Plan (1) H/O right hemicolectomy: Plan: She is doing quite well. She does have some concerns about if she is ready to go home. I did speak with her son today. She does have family support. We are going to obtain a physical therapy evaluation to see if it is felt she would benefit from rehab versus going home with some physical therapy. I did not discuss the path report with the patient as he just came in but I did discussed about report with her son Derrell. Unfortunately going out of town tomorrow for a week. Dr. Keenan will be taking over care. Hopeful discharge in the next 24 to 48 hours. Admission and Anticipated Discharge Date Admission Date: February 06, 2023 Subjective pt seen.....doing well. still having pain but only when moving. no n/v. Tolerating diet. Physical Exam Physical Exam: Alert. No acute distress Incision looks great. No drainage Results & Data Vital Signs (Past 12 Hours) Vital Signs Temp Pulse Resp BP Pulse Ox O2 Del Method 02/11/23 07:40 36.6 C 87 16 177/80 H 95 Room Air 02/10/23 23:54 190/92 H PG Care Time/CCT Total # of Minutes Spent Total Time Spent with Patient: Total time spent is greater than 50% in coordination of care (as documented) at patient's floor/unit and/or counseling patient: Coding Level of Care Code 34499 Post Operative Follow-Up Diagnoses H/O right hemicolectomy Z90.49
[2023-02-11] MEDS: LOSARTAN POTASSIUM 25 MG TAB PO SCH (13:08)
--- NOTE | 2023-02-11 13:18 | Hospitalist Consultation ---
Date of Consultation February 11, 2023 Assessment & Plan (1) Elevated blood pressure reading: -Asymptomatic elevated blood pressure persistently in postoperative period -While likely reactive to recent surgery, given pt's age and comorbidities she likely has underlying hypertension -Initiate hypertension treatment with amlodipine 5 mg daily- titrate upward as needed -Did administer losartan 25 mg initially- pt received one dose in AM and later discontinued given CKD4 -PCP f/u 1-2 weeks after discharge (2) Chronic kidney disease, stage IV (severe): -Cr at baseline -Monitor BMP Plan Hospitalist service will continue to follow Supervising Physician Co-Signing Physician Notes Attending attestation Pt seen and examined in concert with Dr. Gama. In agreement with the documented findings as noted in the resident documentation with any exceptions or additions as noted here. Resting comfortably in chair at bedside without acute complaint presently. On examination, S1/S2 nl RRR no MCG. CTAB. Abd NT/ND BS+ve Hypertension - ongoing elevation with moderate improvement with repeat on manual BP cuff. Will add amlodipine 5mg and monitor, consider escalation based on trend and repeat tomorrow. CKD IV - Cr 1.15. Avoid nephrotoxic medications. Else see resident documentation as noted. History of Present Illness Reason for Consultation: Elevated blood pressure Requesting Physician: Javier Mary DO Attending Physician: Javier Mary DO History of Present Illness Pt is 87 yo F s/p right hemicolectomy 02/06 for R colon cancer. Hospitalist consulted due to elevated BP postoperatively. Pt initially seen by hospitalist service earlier in hospitalization- elevated BP deemed situational s/p surgery and no pharmacotherapy initiated. Pt has had several BP readings 170+/80+. She remains asymptomatic, denies any headache, chest pain, vision change, etc. Allergies Allergy/AdvReac Type Severity Reaction Status Date / Time adhesive tape AdvReac Mild SKIN Verified 02/06/23 10:46 IRRITATION bandaids AdvReac Mild SKIN Uncoded 02/06/23 10:46 IRRITATION Home Medications Medication Instructions Recorded Confirmed Type donepezil 5 mg tablet (Aricept) 5 mg PO HS 10/19/18 02/06/23 History latanoprost 0.005 % eye drops 1 drp OPB HS 10/19/18 02/06/23 History quetiapine 25 mg tablet (Seroquel) 12.5 mg PO HS 10/19/18 02/06/23 History blood-glucose meter #1 ea 09/14/20 01/29/23 History acetaminophen 500 mg capsule 1,000 mg PO BID PRN Pain 11/08/21 02/06/23 History Wheeled Walker #1 ea 03/28/22 01/28/23 Rx ascorbic acid (vitamin C) 500 mg 500 mg PO QAM 05/29/22 02/06/23 History capsule vortioxetine 10 mg tablet 10 mg PO HS 05/29/22 02/06/23 History (Trintellix) omega-3 acid ethyl esters 1 gram 1 cap PO BID 08/08/22 02/06/23 History capsule BD Ultra-Fine Sheri Pen Needle 32 #100 ea 09/01/22 01/29/23 Rx gauge x 5/32" (pen needle, diabetic) ferrous sulfate 325 mg (65 mg 325 mg PO Q2D 10/03/22 02/06/23 History iron) tablet meclizine 25 mg tablet 25 mg PO TID PRN dizziness or 10/03/22 02/06/23 Rx vertigo #10 tabs oxybutynin chloride 10 mg 10 mg PO QAM #90 tabs 10/20/22 02/06/23 Rx tablet,extended release 24 hr cholecalciferol (vitamin D3) 50 50 mcg PO QAM 11/27/22 02/06/23 History mcg (2,000 unit) capsule calcium 600 mg capsule 600 mg PO QAM 01/06/23 02/06/23 History vit C 250 mg-vit E 90 mg-zinc 40 1 tab PO QPM 01/06/23 02/06/23 History mg-copper 1 [id number] capsule (PreserVision AREDS-2) rosuvastatin 10 mg tablet 10 mg PO QAM 01/29/23 02/06/23 History aspirin 81 mg tablet 81 mg PO DAILY 02/06/23 02/06/23 History clopidogrel 75 mg tablet (Plavix) 75 mg PO QAM 02/06/23 02/06/23 History darbepoetin bao in polysorbat 60 60 mcg subcut .q2wks 02/06/23 02/06/23 History mcg/mL in polysorbate injection (Aranesp) insulin glargine 100 unit/mL (3 20 unit subcut QPM 02/06/23 02/06/23 History mL) subcutaneous pen (Lantus Solostar U-100 Insulin) Patient History Medical History (Updated 02/08/23 @ 18:50 by Roscoe Munoz DO) Anemia has been getting procrit injections every 2 weeks w/iron infusions and blood transfusion summer 2022 Cervical spinal stenosis Cervicalgia Chronic kidney disease, stage IV (severe) Chronic low back pain Colon cancer new dx Dementia Depression Diabetes mellitus, type 2 IDDM Diabetic nephropathy Glaucoma Hyperlipidemia Lumbar facet joint syndrome Lumbar spondylosis Memory change Pt verbalized she has come trouble remembering things 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 reason for plavix Urinary incontinence Surgical History (Updated 02/10/23 @ 08:28 by MARTÍNEZ Orosco) H/O right hemicolectomy (02/06/23) Open Right Hemicolectomy(Right) - Javier Mary DO History of cataract surgery rt/left History of esophagogastroduodenoscopy (EGD) History of repair of rectocele History of repair of rotator cuff rt History of total abdominal hysterectomy SECONDARY TO PROLAPSED UTERUS Hx of bladder repair surgery Hx of colonoscopy Slow to wake up after anesthesia Family History Brother Bone cancer Father , @AGE 64 Cardiac disorder Family history of deafness or hearing loss Hypertension Myocardial infarction, Onset Age: 64 Mother Family history of deafness or hearing loss Pancreatic cancer Aunt Breast cancer Denies family history of Family history of bleeding disorder Ovarian cancer Prostate cancer Adverse anesthesia outcome Colorectal cancer Social History Smoking Status: Never smoker Second Hand Exposure: Yes (in the past); Do You Dip or Chew Tobacco: No; Hx Alcohol Use: No Hx Substance Use: No Preferred Language: Slovak Communication Ability: Effective Communication Ability Comment: STATES THAT SHE HAS LOSS OF HEARING Visual Impairment: No Limitations Hearing Ability: Hard of Hearing Compensation Consultant Required: No Beliefs That Will Affect Care: None marital status: marital status details: HAS FOUR CHILDREN Current Living Situation: Spouse Current Living Situation Comment: lives w/ spouse and grandson (age 25) current occupational status: 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[employer]; 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 How many Children do You have: 4 Feels Safe at Home: Yes Safety Concerns: Feels Safe At This Time Childhood Exposure to Second-Hand Smoke: Yes Diet: regular caffeine: No during the past year weight has: remained stable Dental Care, Regularly: Yes Physical Activity Frequency: Other Physical Activity Frequency Comment: LIMITED BY PHYSICAL CONDITION Seatbelt Use: always Sunscreen Use: No Assistive Devices: Stair Lift and Walker Review of Systems Review of Systems: Per HPI/Subjective Physical Exam Physical Exam: Constitutional: well-appearing, no acute distress HEENT: NCAT, no conjunctival injection CV: regular rhythm, no murmur appreciated, extremities well-perfused, no LE edema Resp: CTABL, no wheezes/rales/rhonchi appreciated, no increased work of breathing GI: soft, nondistended, minimally tender, no bleeding noted over abdominal pad Skin: warm, dry, no rash appreciated Neuro: alert, oriented, no focal neurologic deficit appreciated Results & Data Results & Data Vital Signs (Past 12 Hours) Vital Signs Temp Pulse Resp BP Pulse Ox O2 Del Method 02/11/23 07:40 36.6 C 87 16 177/80 H 95 Room Air Resident Activity Tracking Resident Involvement: Resident Care Provided Care Provided: Adult Hospital Medicine
--- NOTE | 2023-02-11 15:23 | Pharmacy Report ---
Pharmacy Glycemic Short Note 2 - Date of Service February 11, 2023 - Glycemic Short BSG Results (Last 24 hours): 02/10/23 02/10/23 02/11/23 16:24 20:32 07:42 Glucose POC Glucose 155 H 162 H 162 H 02/11/23 02/11/23 07:52 11:41 Glucose 144 H POC Glucose 207 H OUTPATIENT ANTIDIABETIC REGIMEN: * Lantus 20 units SQ qPM * A1c = 8% ASSESSMENT: 02/11: * Keren received 6 units of bolus insulin yesterday. * Diet has advanced today, she is tolerating more carbohydrates. * Fasting BSG elevated this AM, Lantus given at ~0.15 units/kg with Lunch * Mealtime BSGs have been slightly elevated, tighten goal range and carbohydrate coverage 02/09: * Keren did not receive any insulin yesterday * She continues on a clear liquid diet, anticipate higher need for insulin once diet advances. * Continue Novolog at weight based stress of 2 with increase goal range until diet advanced to prevent hypoglycemia. 02/08: * Keren is a 87 yo T2DM s/p open right hemicolectomy * Tolerating clear liquid diet per surgery. No nausea or vomiting. * Patient received Lantus 10 units on 02/06. This was reduced to 8 units on 02/07. Fasting continues to trend downward and was below goal this am at 70 mg/dL. Will hold further basal insulin for now. * Continue weight based Novolog for now (~stress 2) PLAN FOR INPATIENT GLYCEMIC CONTROL: * Hold outpatient oral diabetes medications * Basal insulin * Lantus 10 units SQ x1, reassess in AM * Bolus insulin * NovoLog per scale ACHS or Q6hrs while NPO * Goal Range: Low 110 mg/dL - High 140 mg/dL * Correction Factor: 30 mg/dL/unit * Nutritional / Prandial insulin per carb ratio of 1 unit per 10 grams CHO consumed
[2023-02-11] MEDS: oxyCODONE/ACETAMINOPHEN 5mg/325mg TAB PO PRN (20:19)
[2023-02-11] MEDS: QUEtiapine FUMARATE 25 MG TABLET PO SCH (20:19)
[2023-02-11] MEDS: DONEPEZIL HCL 5 MG TAB PO SCH (20:20)
[2023-02-12 07:30] LABS: Basophils # (auto) 0.02 K/uL (0.00-0.20); Basophils % (auto) 0.3 %; Eosinophils # (auto) 0.41 K/uL (0.00-0.50); Eosinophils % (auto) 6.7 %; Hematocrit (blood only) 25.1 % (37.0-47.0); Hemoglobin 8.1 g/dl (12.0-16.0); Immature Granulocytes # (auto) 0.22 K/uL (0.01-0.20); Immature Granulocytes % (auto) 3.6 %; Lymphocytes # (auto) 0.81 K/uL (1.20-3.40); Lymphocytes % (auto) 13.1 %; Mean Corpuscular Hemoglobin 26.8 pg (25.0-34.0); Mean Corpuscular Hgb Conc 32.3 g/dL (32.0-36.0); Mean Corpuscular Volume 83.1 fL (80.0-100.0); Mean Platelet Volume 9.8 fL (9.4-12.4); Monocytes # (auto) 0.82 K/uL (0.11-0.59); Monocytes % (auto) 13.3 %; Neutrophils # (auto) 3.88 K/uL (1.40-6.50); Platelet Count 298 K/uL (130-400); RDW Coefficient of Variation 16.3 % (11.5-14.5); RDW Standard Deviation 49.4 fL (36.4-46.3); Red Blood Count 3.02 M/uL (4.20-5.40); White Blood Count 6.16 K/ul (4.8-10.8)
[2023-02-12 07:48] LABS: BUN Creatinine Ratio 13.3 (10-20); Creatinine Clr Calc Pharmacy 31.3 ml/min; Est GFR (African American) 46.7 ml/min; Est GFR (Non-African American) 40.3 ml/min; Potassium 3.8 mmol/L (3.5-5.1)
--- NOTE | 2023-02-12 07:50 | Hospitalist Progress Note ---
Date of Service February 12, 2023 Assessment & Plan (1) Elevated blood pressure reading: Plan: -Asymptomatic elevated blood pressure persistently in postoperative period -While likely reactive to recent surgery, given pt's age and comorbidities she likely has underlying hypertension. -Initially started on losartan 25 mg, left given patient's CKD stage IV we will switch to amlodipine. -Will increase from 5 mg amlodipine to 10 mg amlodipine on 02/13. -We will also change vitals to every 4 hours. -PCP f/u 1-2 weeks after discharge (2) Chronic kidney disease, stage IV (severe): Plan: -Cr at baseline -Monitor BMP Admission and Anticipated Discharge Date Admission Date: February 06, 2023 Supervising Physician Co-Signing Physician Notes Attending attestation Pt seen and examined in concert with Dr. Gama. In agreement with the documented findings as noted in the resident documentation with any exceptions or additions as noted here. Resting comfortably without acute complaint. On examination, S1/S2 nl RRR no MCG. CTAB. Abd NT/ND BS+ve Hypertension - ongoing elevation with moderate improvement with repeat on manual BP cuff - rec'd losartan and amlodipine 5mg today, escalate to 10mg amlodipine and d/c losartan. Monitor for response. CKD IV - Avoid nephrotoxic medications. Else see resident documentation as noted. Subjective Patient seen bedside this morning. States that currently she at this time is her abdominal pain around her respiratory state that has been improving. She denies any chest pain, dizziness, nausea, vomiting, palpitations, or any other issues. Review of Systems Review of Systems: All systems reviewed & are unremarkable except as noted in Subjective Physical Exam Physical Exam: Constitutional: well-appearing, no acute distress HEENT: NCAT, no conjunctival injection CV: regular rhythm, no murmur appreciated, extremities well-perfused, no LE edema Resp: CTABL, no wheezes/rales/rhonchi appreciated, no increased work of breathing GI: soft, nondistended, nontender, BS normoactive MSK: no gross deformities appreciated Skin: warm, dry, no rash appreciated Neuro: alert, oriented, no focal neurologic deficit appreciated Results & Data Results & Data Vital Signs (Past 12 Hours) Vital Signs Temp Pulse Resp BP Pulse Ox O2 Del Method 02/11/23 20:17 37.3 C 92 H 16 183/81 H 90 Room Air Resident Activity Tracking Resident Involvement: Resident Care Provided Care Provided: Adult Hospital Medicine
[2023-02-12] MEDS: ASCORBIC ACID 500 MG TAB PO SCH (08:06)
[2023-02-12] MEDS: LOSARTAN POTASSIUM 25 MG TAB PO SCH (08:07)
[2023-02-12] MEDS: CLOPIDOGREL BISULFATE 75 MG TAB PO SCH (08:07)
[2023-02-12] MEDS: CHOLECALCIFEROL 1,000 UNITS 25 MCG TAB PO SCH (08:07)
[2023-02-12] MEDS: LANTUS PER UNIT CHARGE SC SCH (08:22)
[2023-02-12] MEDS: INSULIN ASPART PER UNIT CHARGE SC SCH ×4 (08:23→21:12)
[2023-02-12] MEDS ORDERED: amLODIPine BESYLATE 5 MG TAB PO SCH (09:00)
--- NOTE | 2023-02-12 15:03 | Surgery Progress Note ---
Date of Service February 12, 2023 Assessment & Plan (1) H/O right hemicolectomy: Plan: Doing well, tolerating diet pain is controlled plan if for rehab she should be stable for discharge tomorrow medically Admission and Anticipated Discharge Date Admission Date: February 06, 2023 Subjective Patient seen and examined. Tolerating diet. Passing flatus. Pain controlled. Physical Exam Constitutional: WD/WN, vitals as above Gastrointestinal (Abdomen): Incision with lino, no erythema or drainage Results & Data Vital Signs (Past 12 Hours) Vital Signs Temp Pulse Resp BP Pulse Ox O2 Del Method 02/12/23 09:20 Room Air 02/12/23 08:04 37.1 C 85 16 152/79 H 95 Room Air PG Care Time/CCT Total # of Minutes Spent Total Time Spent with Patient: Total time spent is greater than 50% in coordination of care (as documented) at patient's floor/unit and/or counseling patient: Coding Level of Care Code 04082 Post Operative Follow-Up Diagnoses H/O right hemicolectomy Z90.49
[2023-02-12] MEDS: oxyCODONE/ACETAMINOPHEN 5mg/325mg TAB PO PRN (20:30)
[2023-02-12] MEDS: DONEPEZIL HCL 5 MG TAB PO SCH (20:31)
[2023-02-12] MEDS: QUEtiapine FUMARATE 25 MG TABLET PO SCH (20:31)
--- NOTE | 2023-02-13 07:19 | Hospitalist Progress Note ---
Date of Service February 13, 2023 Assessment & Plan (1) Elevated blood pressure reading: Plan: -Asymptomatic elevated blood pressure persistently in postoperative period -While likely reactive to recent surgery, given pt's age and comorbidities she likely has underlying hypertension. -Initially started on losartan 25 mg, left given patient's CKD stage IV we will switch to amlodipine. -We will start on 5 mg of amlodipine every morning. -Goal is to be under 160 systolically during hospitalization. -We will also change vitals to every 4 hours. -PCP f/u 1-2 weeks after discharge (2) Chronic kidney disease, stage IV (severe): Plan: -Cr at baseline -Monitor BMP Admission and Anticipated Discharge Date Admission Date: February 06, 2023 Supervising Physician Co-Signing Physician Notes ATTESTATION I also saw the patient and confirmed kinsey portions of the history and exam. I agree with the impression and plan in the resident documentation, and as summarized below. Upon late morning exam, the patient is semireclined in bed watching TV. She really has no complaints. Reviewed her outpatient records. Her blood pressure is generally well controlled in the 110s to low 130s. In times of hospitalization/acute illness, she has been a bit higher, and this is not unexpected EXAM 153/71, 82, 16, 37 C, 94% room air DATA Labs Hemoglobin 8.1 Creatinine 1.22 IMPRESSION & PLAN Elevated blood pressure without diagnosis of hypertension Believe this is more situational, and at age 87, would allow for permissive hypertension and not be too aggressive, as hypotension will be more problematic than mildly elevated blood pressures Amlodipine 5 mg seems appropriate for now As she convalesces, and ambulates, need to be monitored for of episodic hypotension Additional per resident documentation Subjective Patient seen bedside this morning. Patient states that she has felt about the same since yesterday. No chest pain, nausea, vomiting, lightheadedness,or palpitations. Review of Systems Review of Systems: All systems reviewed & are unremarkable except as noted in Subjective Physical Exam Physical Exam: Constitutional: well-appearing, no acute distress HEENT: NCAT, no conjunctival injection CV: regular rhythm, no murmur appreciated, extremities well-perfused, no LE edema Resp: CTABL, no wheezes/rales/rhonchi appreciated, no increased work of breathing GI: soft, nondistended, nontender, BS normoactive MSK: no gross deformities appreciated Skin: warm, dry, no rash appreciated Neuro: alert, oriented, no focal neurologic deficit appreciated Results & Data Results & Data Vital Signs (Past 12 Hours) Vital Signs Temp Pulse Resp BP Pulse Ox O2 Del Method 02/12/23 19:47 37.5 C 93 H 18 163/82 H 96 Room Air Resident Activity Tracking Resident Involvement: Resident Care Provided Care Provided: Adult Hospital Medicine
[2023-02-13] MEDS ORDERED: amLODIPine BESYLATE 5 MG TAB PO SCH (09:00)
[2023-02-13] MEDS: LANTUS PER UNIT CHARGE SC SCH (09:12)
[2023-02-13] MEDS: INSULIN ASPART PER UNIT CHARGE SC SCH ×4 (09:12→20:57)
[2023-02-13] MEDS: CHOLECALCIFEROL 1,000 UNITS 25 MCG TAB PO SCH (09:15)
[2023-02-13] MEDS: ASCORBIC ACID 500 MG TAB PO SCH (09:15)
[2023-02-13] MEDS: CLOPIDOGREL BISULFATE 75 MG TAB PO SCH (09:15)
[2023-02-13 09:40] LABS: BUN Creatinine Ratio 15.6 (10-20); Calcium 9.2 mg/dl (8.6-10.3); Creatinine Clr Calc Pharmacy 30.8 ml/min; Est GFR (African American) 45.8 ml/min; Est GFR (Non-African American) 39.5 ml/min; Potassium 3.8 mmol/L (3.5-5.1)
--- NOTE | 2023-02-13 10:13 | Surgery Progress Note ---
Date of Service February 13, 2023 Assessment & Plan (1) H/O right hemicolectomy: Plan: She is overall doing well She would like to go to rehab in [place] I think the plan will be to discharge her Thursday once she is stable and has a little bit better return of bowel function Appreciate medical consultation and comanagement Admission and Anticipated Discharge Date Admission Date: February 06, 2023 Subjective Patient seen and examined. Tolerating her diet but feels a little bit distended today. She is passing some flatus but no bowel movement recently. No nausea or vomiting. Physical Exam Constitutional: WD/WN, vitals as above Gastrointestinal (Abdomen): Incision with lino, no erythema or drainage Results & Data Vital Signs (Past 12 Hours) Vital Signs Temp Pulse Resp BP Pulse Ox O2 Del Method 02/13/23 07:36 36.8 C 82 16 176/77 H 96 Room Air PG Care Time/CCT Total # of Minutes Spent Total Time Spent with Patient: Total time spent is greater than 50% in coordination of care (as documented) at patient's floor/unit and/or counseling patient: Coding Level of Care Code 76496 Post Operative Follow-Up Diagnoses H/O right hemicolectomy Z90.49
[2023-02-13] MEDS: DOCUSATE SODIUM 100 MG CAP PO SCH ×2 (12:35→19:46)
[2023-02-13] MEDS: oxyCODONE/ACETAMINOPHEN 5mg/325mg TAB PO PRN (19:43)
[2023-02-13] MEDS: DONEPEZIL HCL 5 MG TAB PO SCH (19:45)
[2023-02-13] MEDS: QUEtiapine FUMARATE 25 MG TABLET PO SCH (19:46)
[2023-02-14 07:42] LABS: Hemoglobin 8.4 g/dl (12.0-16.0); Mean Corpuscular Hemoglobin 26.4 pg (25.0-34.0); Mean Corpuscular Hgb Conc 31.1 g/dL (32.0-36.0); Mean Corpuscular Volume 84.9 fL (80.0-100.0); Mean Platelet Volume 9.9 fL (9.4-12.4); Platelet Count 336 K/uL (130-400); RDW Coefficient of Variation 16.6 % (11.5-14.5); RDW Standard Deviation 52.5 fL (36.4-46.3); Red Blood Count 3.18 M/uL (4.20-5.40); White Blood Count 7.61 K/ul (4.8-10.8)
[2023-02-14 08:11] LABS: BUN Creatinine Ratio 15.7 (10-20); Calcium 9.3 mg/dl (8.6-10.3); Creatinine Clr Calc Pharmacy 28.1 ml/min; Est GFR (African American) 40.9 ml/min; Est GFR (Non-African American) 35.3 ml/min
[2023-02-14] MEDS: amLODIPine BESYLATE 5 MG TAB PO SCH (08:27)
[2023-02-14] MEDS: ASCORBIC ACID 500 MG TAB PO SCH (08:27)
[2023-02-14] MEDS: CHOLECALCIFEROL 1,000 UNITS 25 MCG TAB PO SCH (08:27)
[2023-02-14] MEDS: DOCUSATE SODIUM 100 MG CAP PO SCH ×2 (08:27→19:47)
[2023-02-14] MEDS: CLOPIDOGREL BISULFATE 75 MG TAB PO SCH (08:27)
[2023-02-14] MEDS: LANTUS PER UNIT CHARGE SC SCH (09:02)
[2023-02-14] MEDS: INSULIN ASPART PER UNIT CHARGE SC SCH ×4 (09:02→20:41)
--- NOTE | 2023-02-14 12:16 | Hospitalist Progress Note ---
Date of Service February 14, 2023 Assessment & Plan (1) Elevated blood pressure reading: Plan: Pt is an 87 yo female with PMH of DM, colon cancer, TIA (2021), dementia, chronic low back pain, CKD, and HLD presenting to the hospital for right hemicolectomy. Surgery was performed 02/06/2023. Elevated BP -Asymptomatic elevated blood pressure persistently in postoperative period -While likely reactive to recent surgery and pain, given pt's age and comorbidities she likely has underlying hypertension -Initially started on losartan 25 mg,; discontinued given patient's CKD stage IV -continue amlodipine 5 mg daily; cautious to increase much higher due to some lower BPs and concern for hypotension and subsequent fall -most importantly, pt will need PCP f/u 1-2 weeks after discharge for blood pressure rechecks as pt's hospital BP may not be indicative of "typical" BP CKD IV - baseline Cr ~1.6-1.7 - Cr stable Diet: carb consistent, low fiber DVT ppx: none, will discuss with primary team Code: full Dispo: rehab (?Thursday) (2) Chronic kidney disease, stage IV (severe): Admission and Anticipated Discharge Date Admission Date: February 06, 2023 Supervising Physician Co-Signing Physician Notes ATTESTATION I also saw the patient and confirmed kinsey portions of the history and exam. I agree with the impression and plan in the resident documentation, and as summarized below. Upon my morning exam, she is seated in bed eating breakfast. Still notes some pain. Her blood pressure readings have been variable. When pain is well controlled, 117/62. This morning elevated 192/82 -denies any chest pain, headache, shortness of breath. Reviewed her outpatient records. Her blood pressure is generally well controlled in the 110s to low 130s. In times of hospitalization/acute illness, she has been a bit higher, and this is not unexpected EXAM DATA Labs Hemoglobin 8.4 Creatinine 1.34 IMPRESSION & PLAN Elevated blood pressure without diagnosis of hypertension Believe this is more situational, and at age 87, would allow for permissive hypertension and not be too aggressive, as hypotension will be more problematic than mildly elevated blood pressures Amlodipine 5 mg seems appropriate for now; hopeful overall trend will be towards improvement as her pain lessens Since she has been asymptomatic with the elevated readings, will hold off on any p.o. medications; but will continue to monitor As she convalesces, and ambulates, need to be monitored for of episodic hypotension Additional per resident documentation Subjective Pt is an 87 yo female with PMH of DM, colon cancer, TIA (2021), dementia, chronic low back pain, CKD, and HLD presenting to the hospital for right hemicolectomy. Surgery was performed 02/06/2023. Pt doing well this AM. No new complaints. Still having some abdominal pain. Review of Systems Review of Systems: As per HPI Physical Exam Physical Exam: Constitutional: well appearing, no acute distress HEENT: normocephalic, no conjunctival injection CV: regular rhythm, regular rate, no murmur, no LE edema Respiratory: Clear to auscultation bilaterally. No rhonchi, wheezes, or crackles. No increased work of breathing MSK: no gross deformities noted Skin: warm, dry, no rashes Neuro: alert, oriented, no FND noted Results & Data Results & Data Vital Signs (Past 12 Hours) Vital Signs Temp Pulse Resp BP BP Pulse Ox O2 Del Method 02/14/23 08:34 36.7 C 100 H 16 192/82 H 97 Room Air 02/14/23 07:35 Room Air 02/14/23 03:00 37.1 C 79 18 146/71 H 93 Room Air Resident Activity Tracking Resident Involvement: Resident Care Provided Care Provided: Adult Hospital Medicine
--- NOTE | 2023-02-14 12:30 | Surgery Progress Note ---
Date of Service February 14, 2023 Assessment & Plan (1) H/O right hemicolectomy: Plan: POD#8. tolerating low fiber diet. Bowels functioning. Exam is as expected with no new concerning changes. Plan to keep until rehab on Thursday. Admission and Anticipated Discharge Date Admission Date: February 06, 2023 Subjective complaining of more right sided abdominal pain today. Tolerating diet. Pain is worse when she coughs. Having bowel movements. No nausea. Review of Systems Respiratory: + cough Physical Exam Constitutional: WD/WN, vitals as above Respiratory: normal respiratory effort; no respiratory distress Auscultation: + diminished lung sounds Gastrointestinal (Abdomen): Inspection/Auscultation: abdomen normal to inspection, + abdomen distended (mild), normal bowel sounds and + abdominal surgical incision (well healed) Percussion/Palpation: abdomen soft; abdomen nontender and no guarding Results & Data Vital Signs (Past 12 Hours) Vital Signs Temp Pulse Resp BP BP Pulse Ox O2 Del Method 02/14/23 08:34 36.7 C 100 H 16 192/82 H 97 Room Air 02/14/23 07:35 Room Air 02/14/23 03:00 37.1 C 79 18 146/71 H 93 Room Air Laboratory Results 02/14/23 02/14/23 02/14/23 Range/Units 11:40 08:01 06:43 WBC 7.61 (4.8-10.8) K/ul RBC 3.18 L (4.20-5.40) M/uL Hgb 8.4 L (12.0-16.0) g/dl Hct 27.0 L (37.0-47.0) % MCV 84.9 (80.0-100.0) fL MCH 26.4 (25.0-34.0) pg MCHC 31.1 L (32.0-36.0) g/dL RDW Std Deviation 52.5 H (36.4-46.3) fL RDW Coeff of Mari 16.6 H (11.5-14.5) % Plt Count 336 (130-400) K/uL MPV 9.9 (9.4-12.4) fL Sodium 138 (136-145) mmol/L Potassium 4.0 (3.5-5.1) mmol/L Chloride 102 (98-107) mmol/L Carbon Dioxide 30 (21-32) mmol/L Anion Gap 6 (3-11) BUN 21 (6-23) mg/dl Creatinine 1.34 H (0.6-1.2) mg/dl Est Cr Clr Drug Dosing 28.1 ml/min Est GFR ( Amer) 40.9 ml/min Est GFR (Non-Af Amer) 35.3 ml/min BUN/Creatinine Ratio 15.7 (10-20) Glucose 126 H (70-99(Fasting)) mg/dl POC Glucose 150 H 132 H (70-99) mg/dl Calcium 9.3 (8.6-10.3) mg/dl 02/13/23 02/13/23 Range/Units 20:34 16:55 WBC (4.8-10.8) K/ul RBC (4.20-5.40) M/uL Hgb (12.0-16.0) g/dl Hct (37.0-47.0) % MCV (80.0-100.0) fL MCH (25.0-34.0) pg MCHC (32.0-36.0) g/dL RDW Std Deviation (36.4-46.3) fL RDW Coeff of Mari (11.5-14.5) % Plt Count (130-400) K/uL MPV (9.4-12.4) fL Sodium (136-145) mmol/L Potassium (3.5-5.1) mmol/L Chloride (98-107) mmol/L Carbon Dioxide (21-32) mmol/L Anion Gap (3-11) BUN (6-23) mg/dl Creatinine (0.6-1.2) mg/dl Est Cr Clr Drug Dosing ml/min Est GFR ( Amer) ml/min Est GFR (Non-Af Amer) ml/min BUN/Creatinine Ratio (10-20) Glucose (70-99(Fasting)) mg/dl POC Glucose 137 H 100 H (70-99) mg/dl Calcium (8.6-10.3) mg/dl
[2023-02-14] MEDS: HYDROmorphone INJ 0.5 MG/0.5 ML SYR IV PRN (12:58)
--- NOTE | 2023-02-14 15:20 | XRay Report ---
XR chest 1V portable CLINICAL HISTORY: productive cough TECHNIQUE: Single frontal radiograph of the chest was obtained. Comparison: Comparison is made to chest radiograph 01/22/2022 FINDINGS: No lines and tubes are seen. The cardiomediastinal silhouette is normal. The lungs are clear. No evid ence of pleural effusion or pneumothorax. There is suggestion of pneumoperitoneum in the right upper quadrant. IMPRESSION: Suggestion of pneumoperitoneum in the right upper quadrant. Correlation with recent surgical history is recommended end CT abdomen pelvis can be performed. ACT 112: Negative or not required by law. Electronically signed by: Maurice Mejía M.D. 02/14/2023 3:19 PM
[2023-02-14] MEDS: DONEPEZIL HCL 5 MG TAB PO SCH (19:47)
[2023-02-14] MEDS: QUEtiapine FUMARATE 25 MG TABLET PO SCH (19:47)
[2023-02-14] MEDS: HEPARIN SOD 5,000 UNIT/0.5 ML VIAL SQ SCH (19:47)
--- NOTE | 2023-02-15 06:53 | Hospitalist Progress Note ---
Date of Service February 15, 2023 Assessment & Plan (1) Elevated blood pressure reading: Plan: Pt is an 87 yo female with PMH of DM, colon cancer, TIA (2021), dementia, chronic low back pain, CKD, and HLD presenting to the hospital for right hemicolectomy. Surgery was performed 02/06/2023. Elevated BP -Asymptomatic elevated blood pressure persistently in postoperative period -While likely reactive to recent surgery and pain, given pt's age and comorbidities she likely has underlying hypertension -Initially started on losartan 25 mg; discontinued given patient's CKD stage IV; if pt requires further BP management would consider reinstitution of ARB or possibly BB (as HR borderline elevated) -continue amlodipine 5 mg daily; cautious to increase much higher due to some lower BPs and concern for hypotension and subsequent fall -most importantly, pt will need PCP f/u 1-2 weeks after discharge for blood pressure rechecks as pt's hospital BP may not be indicative of "typical" BP CKD IV - baseline Cr ~1.6-1.7 - Cr stable Productive cough - first noted 02/14; CXR neg - most likely atelectasis in the setting of recent surgery; encouraged incentive spirometer use Diet: carb consistent, low fiber DVT ppx: heparin BID Code: full Dispo: rehab (?Thursday) (2) Chronic kidney disease, stage IV (severe): Admission and Anticipated Discharge Date Admission Date: February 06, 2023 Supervising Physician Co-Signing Physician Notes ATTESTATION I also saw the patient and confirmed kinsey portions of the history and exam. I agree with the impression and plan in the resident documentation, and as summarized below. No new complaints today. She does continue to feel generally weak, but probably not disproportionate to her age and recent surgery. There was some thought that she had some lower extremity edema; on examination today, she does have bilateral compression hose, I appreciate no significant pedal edema except for slight edema of the right foot itself. Blood pressure readings have been variable, most recent 148/72. EXAM 148/72, 79, 16, 37.1 Pleasant and alert. Abdomen soft nontender. Bowel sounds are auscultated Lower extremities are symmetrical, no significant edema except for some mild edema of the right foot. DATA Labs Hemoglobin 8.2 Creatinine 1.18 Imaging A chest x-ray taken yesterday afternoon was negative for pulmonary findings. There is a pneumoperitoneum in the right upper quadrant. IMPRESSION & PLAN Elevated blood pressure without diagnosis of hypertension Believe this is more situational, and at age 87, would allow for permissive hypertension and not be too aggressive, as hypotension will be more problematic than mildly elevated blood pressures Amlodipine 5 mg seems appropriate for now; hopeful overall trend will be towards improvement as her pain lessens If her lower extremity edema worsens, further titration of amlodipine probably would not be helpful If additional blood pressure control is needed, consider low-dose beta- nalini or ARB, although will need to carefully watch renal function with her previous history of CKD. She is mildly hyponatremic today -I think she is euvolemic upon exam today, so repeat in a.m. Pneumoperitoneum in the right upper quadrant is likely postoperative; she clinically looks good, minimal abdominal pain, so we will watch for now. Certainly if any increased abdominal pain, tachycardia, fever, would need further abdominal imaging. Additional per resident documentation Subjective Pt is an 87 yo female with PMH of DM, colon cancer, TIA (2021), dementia, chronic low back pain, CKD, and HLD presenting to the hospital for right hemicolectomy. Surgery was performed 02/06/2023. Pt remains asymptomatic from a HTN standpoint. She did endorse a productive cough to surgery team yesterday. This is the same as yesterday. No new concerns- no chest pain, SOB, or leg pains. Review of Systems Review of Systems: As per HPI Physical Exam Physical Exam: Constitutional: well appearing, no acute distress HEENT: normocephalic, no conjunctival injection CV: regular rhythm, regular rate, no murmur, minimal bilateral LE edema Respiratory: Clear to auscultation bilaterally. Diminished breath sounds in bilateral lower lobes. No rhonchi, wheezes, or crackles. No increased work of breathing MSK: no gross deformities noted Skin: warm, dry, no rashes Neuro: alert, oriented, no FND noted Results & Data Results & Data Vital Signs (Past 12 Hours) Vital Signs Temp Pulse Resp BP Pulse Ox O2 Del Method 02/15/23 06:00 36.5 C 90 16 182/77 H 92 Room Air 02/15/23 02:35 37.1 C 90 16 186/78 H 92 Room Air 02/14/23 23:19 37.3 C 94 H 16 182/78 H 93 Room Air 02/14/23 19:57 36.6 C 94 H 16 167/76 H 93 Room Air Resident Activity Tracking Resident Involvement: Resident Care Provided Care Provided: Adult Hospital Medicine
[2023-02-15] MEDS: amLODIPine BESYLATE 5 MG TAB PO SCH (08:53)
[2023-02-15] MEDS: DOCUSATE SODIUM 100 MG CAP PO SCH ×2 (08:53→19:42)
[2023-02-15] MEDS: HEPARIN SOD 5,000 UNIT/0.5 ML VIAL SQ SCH ×2 (08:54→19:42)
[2023-02-15] MEDS: ASCORBIC ACID 500 MG TAB PO SCH (08:54)
[2023-02-15] MEDS: CLOPIDOGREL BISULFATE 75 MG TAB PO SCH (08:54)
[2023-02-15] MEDS: CHOLECALCIFEROL 1,000 UNITS 25 MCG TAB PO SCH (08:54)
[2023-02-15] MEDS: LANTUS PER UNIT CHARGE SC SCH (09:09)
[2023-02-15] MEDS: INSULIN ASPART PER UNIT CHARGE SC SCH ×4 (09:09→20:50)
[2023-02-15 10:06] LABS: Hematocrit (blood only) 25.6 % (37.0-47.0); Hemoglobin 8.2 g/dl (12.0-16.0); Mean Corpuscular Hemoglobin 26.4 pg (25.0-34.0); Mean Corpuscular Volume 82.3 fL (80.0-100.0); Mean Platelet Volume 9.8 fL (9.4-12.4); Nucleated RBC # (auto) 0.02 K/uL (0.00-0.12); Nucleated RBC % (auto) 0.2 %; Platelet Count 282 K/uL (130-400); RDW Coefficient of Variation 16.8 % (11.5-14.5); RDW Standard Deviation 50.4 fL (36.4-46.3); Red Blood Count 3.11 M/uL (4.20-5.40); White Blood Count 8.63 K/ul (4.8-10.8)
[2023-02-15 10:24] LABS: BUN Creatinine Ratio 18.6 (10-20); Creatinine Clr Calc Pharmacy 31.9 ml/min; Est GFR (African American) 47.7 ml/min; Est GFR (Non-African American) 41.1 ml/min
[2023-02-15] MEDS: oxyCODONE/ACETAMINOPHEN 5mg/325mg TAB PO PRN (10:25)
--- NOTE | 2023-02-15 11:43 | Surgery Progress Note ---
Date of Service February 15, 2023 Assessment & Plan (1) H/O right hemicolectomy: Plan: POD#9. tolerating low fiber diet. Bowels functioning. Exam is as expected with no new concerning changes. Plan to keep until rehab on Thursday. Admission and Anticipated Discharge Date Admission Date: February 06, 2023 Subjective Doing well today. Ambulating with physical therapy. Physical Exam Constitutional: WD/WN, vitals as above Respiratory: normal respiratory effort; no respiratory distress Results & Data Vital Signs (Past 12 Hours) Vital Signs Temp Pulse Resp BP BP Pulse Ox O2 Del Method 02/15/23 11:39 37.1 C 91 H 193/73 H 93 Room Air 02/15/23 10:49 38 C H 91 H 186/73 H 95 Room Air 02/15/23 10:20 37.5 C 89 193/78 H 91 Room Air 02/15/23 08:29 37.7 C H 100 H 16 174/77 H 93 Room Air 02/15/23 06:00 36.5 C 90 16 182/77 H 92 Room Air 02/15/23 02:35 37.1 C 90 16 186/78 H 92 Room Air
[2023-02-15] MEDS ORDERED: amLODIPine BESYLATE 5 MG TAB PO ONE (18:00)
[2023-02-15] MEDS: ACETAMINOPHEN 325 MG TAB PO PRN (19:41)
[2023-02-15] MEDS: DONEPEZIL HCL 5 MG TAB PO SCH (19:42)
[2023-02-15] MEDS: QUEtiapine FUMARATE 25 MG TABLET PO SCH (19:42)
--- NOTE | 2023-02-16 07:21 | Hospitalist Progress Note ---
Date of Service February 16, 2023 Assessment & Plan (1) Elevated blood pressure reading: Plan: Pt is an 87 y/o female with PMH of DM, colon cancer, TIA (2021), dementia, chronic low back pain, CKD, and HLD presenting to the hospital for right hemicolectomy. Surgery was performed 02/06/2023. Patient now with intermittent fevers and elevated inflammatory markers. #Febrile State #Productive Cough Patient with intermittent fevers and productive cough. Tmax 39.4C. Procal 1.92 CRP 23.61. Blood cultures pending. Did have possible right sided pneumoperitoneum on CXR 02/14. Repeat CXR without obvious consolidation. Re- demonstrated pneumoperitoneum. Started on ceftriaxone for empiric abx. Reevaluated patient this afternoon - shaking chills, general malaise, and more concerning abdominal exam. Surgery also evaluated patient this afternoon and ordered CT A&P. Will continue to follow. Ceftriaxone started 02/16 f/u CT A&P NPO for possible surgical procedure Elevated BP Asymptomatic elevated blood pressure persistently in postoperative period. While likely reactive to recent surgery and pain, given pt's age and comorbidities she likely has underlying hypertension. With patient's history of CKD IV she is now on 5 mg amlodipine. Would err on the side of caution as to avoid hypotension and falls in this elderly patient. BP continues to be elevated while inpatient. Would rely more so on outpatient values when titrating BP medications. Could consider addition of an DORIS/ARB if BP control continues to be suboptimal. Will defer to PCP on management. Dementia Patient on Seroquel 12.5 mg and donepezil 5 mg QHS. Continue while inpatient Insulin Dependent Diabetes Mellitus SSI while hospitalized. Resume home dosing on discharge Depression Continue home vortioxetine OAB Continue home oxybutynin HLD Continue statin therapy CKD IV Baseline Cr ~1.6-1.7. Stable Diet: NPO, IVF @ 100 mL/hr DVT ppx: heparin BID Code: full Dispo: will need rehab, has bed at [facility] (2) Chronic kidney disease, stage IV (severe): Admission and Anticipated Discharge Date Admission Date: February 06, 2023 Supervising Physician Co-Signing Physician Notes I personally examined the patient and verified all kinsey points of history and exam, discussed case, and agree with decision making with Dr Edwards [place] feverish earlier, having shaking chills now. Has a little bit of a cough, but not really different than before. Belly does not technically feel a whole lot worse. No diarrhea. No dysuria. No skin redness or rashes. Vitals noted, in general she is laying in bed covered up with multiple blankets having visible rigors. Surprisingly still pleasant and conversational. HEENT normocephalic atraumatic mucous membranes may be slightly dry. Cardio is regular without rubs murmurs or gallops. Lungs faint coarseness bilaterally more in line with the rhonchus, no rales no wheezes good effort. Abdomen is soft mild distention, wound appears clean/dry/intact, mild diffuse tenderness without guarding. Extremities no cyanosis clubbing or edema, bilateral pretty much equal calf tenderness. Feverssource unclear, but inflammatory markers quite consistent with bacterial infection. Empiric ceftriaxone and metronidazole pending CT scan and blood cultures. Continued vigilance for pneumonia given mild nonspecific respiratory findings. With no urinary symptoms, I doubt UTI. Wound looks clean/no other evidence of cellulitis. Continue serial exams and supportive care as well. Subjective Doing well this morning. No fevers or chills reported. Continued pain. Does improve with medication. Review of Systems 2 Review of Systems: As per HPI Physical Exam 2 Physical Exam: Gen: thin appearing elderly female HEENT: AT NC MMM CV: RRR no m/r/g clinically well perfused Resp: CTAB no wheezing no increased work of breathing Abd: non-distended, non-tender MSK: no obvious deformities Psych: appropriate mood and affect Neuro: alert and oriented Skin: no rashes or bruising noted see attending attestation for updated physical examination Results & Data Results & Data Vital Signs (Past 12 Hours) Vital Signs Temp Pulse Resp BP BP Pulse Ox O2 Del Method 02/16/23 07:03 37.7 C H 86 18 180/72 H 93 Room Air 02/16/23 04:56 36.6 C 90 18 167/72 H 95 Room Air 02/15/23 22:56 36.6 C 76 16 123/64 93 Room Air 02/15/23 19:26 39.4 C H 94 H 18 181/73 H 93 Room Air Laboratory Results 02/16/23 06:50 02/16/23 06:50 Resident Activity Tracking Resident Involvement: Resident Care Provided Care Provided: Adult Hospital Medicine
[2023-02-16] MEDS ORDERED: INSULIN ASPART PER UNIT CHARGE SC SCH (07:30)
[2023-02-16 07:57] LABS: Hematocrit (blood only) 24.7 % (37.0-47.0); Hemoglobin 7.9 g/dl (12.0-16.0); Mean Corpuscular Hemoglobin 26.2 pg (25.0-34.0); Mean Corpuscular Volume 82.1 fL (80.0-100.0); Mean Platelet Volume 10.6 fL (9.4-12.4); Platelet Count 229 K/uL (130-400); RDW Coefficient of Variation 16.9 % (11.5-14.5); Red Blood Count 3.01 M/uL (4.20-5.40); White Blood Count 8.94 K/ul (4.8-10.8)
[2023-02-16] MEDS: oxyCODONE/ACETAMINOPHEN 5mg/325mg TAB PO PRN (08:08)
[2023-02-16] MEDS: ACETAMINOPHEN 325 MG TAB PO PRN ×2 (08:08→14:10)
[2023-02-16] MEDS: HEPARIN SOD 5,000 UNIT/0.5 ML VIAL SQ SCH ×2 (08:09→20:01)
[2023-02-16] MEDS: DOCUSATE SODIUM 100 MG CAP PO SCH ×2 (08:09→20:01)
[2023-02-16] MEDS: amLODIPine BESYLATE 5 MG TAB PO SCH (08:10)
[2023-02-16] MEDS: CLOPIDOGREL BISULFATE 75 MG TAB PO SCH (08:10)
[2023-02-16] MEDS: CHOLECALCIFEROL 1,000 UNITS 25 MCG TAB PO SCH (08:10)
[2023-02-16] MEDS: ASCORBIC ACID 500 MG TAB PO SCH (08:10)
[2023-02-16] MEDS: LANTUS PER UNIT CHARGE SC SCH (08:13)
[2023-02-16 08:17] LABS: BUN Creatinine Ratio 19.7 (10-20); Calcium 9.1 mg/dl (8.6-10.3); Creatinine Clr Calc Pharmacy 28.5 ml/min; Est GFR (African American) 41.6 ml/min; Est GFR (Non-African American) 35.9 ml/min; Potassium 3.5 mmol/L (3.5-5.1)
--- NOTE | 2023-02-16 09:06 | Pharmacy Report ---
Pharmacy Glycemic Short Note 2 - Date of Service February 16, 2023 - Glycemic Short BSG Results (Last 24 hours): 02/15/23 02/15/23 02/15/23 09:50 12:02 16:42 Glucose 211 H POC Glucose 227 H 146 H 02/15/23 02/16/23 02/16/23 20:31 06:50 07:33 Glucose 109 H POC Glucose 124 H 116 H OUTPATIENT ANTIDIABETIC REGIMEN: * Lantus 20 units SQ qPM * A1c = 8% ASSESSMENT: 02/16: * BSGs have been reasonably well-controlled over past 72 hours, but hyperglycemic trend at lunch noted * Will tighten AM Novolog parameters this morning * Fasting BSG of 116 mg/dL this morning - continue current basal * Possible d/c to [facility] today 02/11: * Keren received 6 units of bolus insulin yesterday. * Diet has advanced today, she is tolerating more carbohydrates. * Fasting BSG elevated this AM, Lantus given at ~0.15 units/kg with Lunch * Mealtime BSGs have been slightly elevated, tighten goal range and carbohydrate coverage 02/09: * Keren did not receive any insulin yesterday * She continues on a clear liquid diet, anticipate higher need for insulin once diet advances. * Continue Novolog at weight based stress of 2 with increase goal range until diet advanced to prevent hypoglycemia. 02/08: * Keren is a 87 yo T2DM s/p open right hemicolectomy * Tolerating clear liquid diet per surgery. No nausea or vomiting. * Patient received Lantus 10 units on 02/06. This was reduced to 8 units on 02/07. Fasting continues to trend downward and was below goal this am at 70 mg/dL. Will hold further basal insulin for now. * Continue weight based Novolog for now (~stress 2) PLAN FOR INPATIENT GLYCEMIC CONTROL: * Basal insulin * Lantus 12 units SC daily * Bolus insulin * NovoLog per scale ACHS or Q6hrs while NPO * Goal Range: Low 110 mg/dL - High 140 mg/dL * Correction Factor: 20 mg/dL/unit * Nutritional / Prandial insulin per carb ratio of 1 unit per 7 grams CHO consumed w/ breakfast and 1 unit per 9 grams CHO consumed with lunch, dinner, HS
--- NOTE | 2023-02-16 10:21 | Surgery Progress Note ---
Date of Service February 16, 2023 Assessment & Plan (1) H/O right hemicolectomy: Plan: POD 10 Patient resting in bed denies fever, chills sob, cp Reports incisional pain with movements Was waiting for rehab placement and was here over weekend. Noted to have increased temps over weekend highest of 102.4, this AM at 0700 99.9 BP elevated., CXR over weekend showed 02/14/23 IMPRESSION: Suggestion of pneumoperitoneum in the right upper quadrant. Correlation with recent surgical history is recommended end CT abdomen pelvis can be performed. This may be from recent surgery WBC WNL Having BMs and passing flatus Ordered clean catch urine culture- not collected yet Incision midline lino , no s/s of infection CDI , abdomen soft , tender on right Per case management note patient was accepted to [facility] and they have a bed Will continue to monitor Admission and Anticipated Discharge Date Admission Date: February 06, 2023 Supervising Physician Co-Signing Physician Notes I personally saw and evaluated the patient with Tim SOLIZ and agree with the assessment plan. 87-year-old female status post open right hemicolectomy, now with fevers Chest x-ray from today reviewed, suggestion of pneumoperitoneum She seems to have a more concerning abdominal exam, will order stat CT abdomen and pelvis with IV and p.o. contrast Will make her n.p.o. and start IV fluids Further recommendations pending CT scan Subjective Patient resting in bed denies fever, chills sob, cp Reports incisional pain with movements Review of Systems Constitutional: + fever (increase in temp over weekend, pt denies feeling feverish); no chills Respiratory: no dyspnea Cardiovascular: no chest pain Gastrointestinal: + abdominal pain; no nausea and no vomit ing Physical Exam Constitutional: cooperative and comfortable; no acute distress Respiratory: normal respiratory effort and able to speak in complete sentences; no respiratory distress Cardiovascular: Rate/Rhythm: regular rate Gastrointestinal (Abdomen): Inspection/Auscultation: + abdominal surgical incision (lino midline no s/s of infection noted ); abdomen not distended Percussion/Palpation: + abdomen tender and abdomen soft; no guarding Results & Data Vital Signs (Past 12 Hours) Vital Signs Temp Pulse Pulse Resp BP BP Pulse Ox 02/16/23 08:00 98.6 F 74 13 180/75 H 95 02/16/23 07:50 02/16/23 07:03 99.9 F H 86 18 180/72 H 93 02/16/23 04:56 97.9 F 90 18 167/72 H 95 02/15/23 22:56 97.9 F 76 16 123/64 93 O2 Del Method 02/16/23 08:00 Room Air 02/16/23 07:50 Room Air 02/16/23 07:03 Room Air 02/16/23 04:56 Room Air 02/15/23 22:56 Room Air Diagnostic Findings [place], [place] [phone] XRay Report Patient: MIESHA BERRY Admit Date: 02/06/23 MR#: [id number] Address[address]: [address] Acct ID:[id number] Address2: [address] Date: 1935 [facility] Zip: [place] [address] Age: 87 Location: 3N Sex: F Room/Bed: [facility] Att Phy: Javier Mary DO Diagnosis: POST OPERATIVE RIGHT HEMICOLECTOMY Nani Phy: Sophie Murdock DO Service Date: 02/14/23 Fam Phy: Interpreting Phy: Maurice Mejía MDAdmit Phy: Javier Mary DO Ordering Phy: Gabbie Doan DO cc: ~ XR chest 1V portable CLINICAL HISTORY: productive cough TECHNIQUE: Single frontal radiograph of the chest was obtained. Comparison: Comparison is made to chest radiograph 01/22/2022 FINDINGS: No lines and tubes are seen. The cardiomediastinal silhouette is normal. The lungs are clear. No evidence of pleural effusion or pneumothorax. There is suggestion of pneumoperitoneum in the right upper quadrant. IMPRESSION: Suggestion of pneumoperitoneum in the right upper quadrant. Correlation with recent surgical history is recommended end CT abdomen pelvis can be performed. ACT 112: Negative or not required by law. Electronically signed by: Maurice Mejía M.D. 02/14/2023 3:19 PM Dictated: 02/14/23 151 Transcribed: 02/14/231517 PG Care Time/CCT Total # of Minutes Spent Total Time Spent with Patient: Total time spent is greater than 50% in coordination of care (as documented) at patient's floor/unit and/or counseling patient: Coding Level of Care Code 10894 Post Operative Follow-Up Diagnoses H/O right hemicolectomy Z90.49
[2023-02-16] MEDS: INSULIN ASPART PER UNIT CHARGE SC SCH ×3 (12:24→20:34)
--- NOTE | 2023-02-16 14:05 | XRay Report ---
XR chest 2V PA/lateral HISTORY: fevers, ?pneumoperitoneum seen on prior CXR COMPARISON: Chest 02/14/2023. FINDINGS: No pneumothorax. No pleural effusions. The cardiac silhouette is normal in size. Mild inter stitial thickening at the left lung base persists. No new focal lung consolidations to suggest a pneu monia. No evidence for pulmonary edema. Pneumoperitoneum again noted at the right hemidiaphragm. IMPRESSION: 1. Pneumoperitoneum again noted within the right upper quadrant. This could be due to recent surgery or possibly bowel perforation. Clinical correlation recommended. 2. No focal lung consolidations to suggest a pneumonia. ACT 112: Negative or not required by law. Electronically signed by: Jatin Restrepo M.D. 02/16/2023 2:03 PM
[2023-02-16] MEDS ORDERED: cefTRIAXone SODIUM 2,000 MG in DEXTROSE 5 % MINI-B 50 ML IV SCH (15:00)
[2023-02-16] MEDS: HYDROmorphone INJ 0.5 MG/0.5 ML SYR IV PRN (15:58)
[2023-02-16] MEDS: SODIUM CHLORIDE 0.9% 1,000 ML IV SCH (15:59)
--- NOTE | 2023-02-16 18:43 | Billing Data ---
Date of Service February 16, 2023 Coding Level of Care Code 28124 SUB INP/OBS CARE
[2023-02-16] MEDS: QUEtiapine FUMARATE 25 MG TABLET PO SCH (20:01)
[2023-02-16] MEDS: DONEPEZIL HCL 5 MG TAB PO SCH (20:01)
[2023-02-16] MEDS: metroNIDAZOLE 500 MG/100 ML BAG IV SCH (20:34)
--- NOTE | 2023-02-16 21:58 | CT Scan Report ---
Exam(s): CT ABDOMEN + PELVIS With Contrast Oral - High Density Amt: gastrograffin, IV Amt: 93 ml opti 320 EXAM: CT Abdomen and Pelvis With Intravenous Contrast CLINICAL HISTORY: Reason for exam: Evaluate for post operative bowel resection leak. TECHNIQUE: Axial computed tomography images of the abdomen and pelvis with intravenous contrast. CTDI is 19.31 mGy and DLP is 914.33 mGy-cm. Automated exposure control was utilized for the study. A dose lowering technique was utilized adhering to the principles of ALARA. CONTRAST: Patient received gastrograffin of Oral - High Density and 93 ml opti 320 of IV contrast COMPARISON: No relevant prior studies available. FINDINGS: Lung bases: Unremarkable. No mass. No consolidation. ABDOMEN: Liver: Unremarkable. No mass. Gallbladder and bile ducts: Unremarkable. No calcified stones. No ductal dilation. Pancreas: Unremarkable. No mass. No ductal dilation. Spleen: Unremarkable. No splenomegaly. Adrenals: Unremarkable. No mass. Kidneys and ureters: Unremarkable. No solid mass. No hydronephrosis. Stomach and bowel: Diverticulosis, without acute diverticulitis. No obstruction. PELVIS: Appendix: No findings to suggest acute appendicitis. Bladder: Unremarkable. No mass. Reproductive: Hysterectomy. ABDOMEN and PELVIS: Intraperitoneal space: Postoperative free air in the abdomen. Bowel anastomosis in the RIGHT lower quadrant. There is mild free fluid at the anastomotic site however, no definite evidence of perforation (no extravasation of oral contrast into the peritoneum). Low index of suspicion for bowel leak. Bones/joints: Degenerative changes of the spine. No acute fracture. No dislocation. Soft tissues: Unremarkable. Vasculature: Atherosclerotic changes of the aorta. No abdominal aortic aneurysm. Lymph nodes: Unremarkable. No enlarged lymph nodes. Other findings: Recent midline laparotomy. IMPRESSION: Bowel anastomosis in the RIGHT lower quadrant. Mild free-fluid at the anastomotic site however, no definite evidence of perforation (no extravasation of oral contrast into the peritoneum). Low index of suspicion for bowel leak. Electronically signed by: Ranulfo Varela MD 02/16/23 21:57 PM
[2023-02-17] MEDS: ACETAMINOPHEN 325 MG TAB PO PRN ×2 (00:09→17:37)
[2023-02-17] MEDS: SODIUM CHLORIDE 0.9% 1,000 ML IV SCH ×2 (01:08→11:02)
[2023-02-17] MEDS: metroNIDAZOLE 500 MG/100 ML BAG IV SCH (02:57)
[2023-02-17] MEDS ORDERED: Nursing to Pharmacy Communication SCH (07:00)
--- NOTE | 2023-02-17 07:18 | Hospitalist Progress Note ---
Date of Service February 17, 2023 Assessment & Plan (1) Elevated blood pressure reading: Plan: Pt is an 87 y/o female with PMH of DM, colon cancer, TIA (2021), dementia, chronic low back pain, CKD, and HLD presenting to the hospital for right hemicolectomy. Surgery was performed 02/06/2023. Patient now with intermittent fevers and elevated inflammatory markers. #Febrile State #Probable bowel leak Patient with intermittent fevers and productive cough. Tmax 39.4C. Procal 1.92 CRP 23.61. Blood cultures pending. Did have possible right sided pneumoperitoneum on CXR 02/14. Repeat CXR without obvious consolidation. Re- demonstrated pneumoperitoneum. Started on ceftriaxone for empiric abx. Reevaluated patient this afternoon - shaking chills, general malaise, and more concerning abdominal exam. Surgery also evaluated patient this afternoon and ordered CT A&P. Imaging consistent with prior leak. Will need to closely monitor clinical course as she could easily clinically deteriorate at this point. 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 Ordered PCR testing for Anaplasmosis. Though clinical presentation is atypical for Anaplasmosis she does have constitutional symptoms and decreasing values in all cell lines on CBC. As [facility] is very endemic for tick borne illnesses will add on empiric doxy. Elevated BP Asymptomatic elevated blood pressure persistently in postoperative period. While likely reactive to recent surgery and pain, given pt's age and comorbidities she likely has underlying hypertension. With patient's history of CKD IV she is now on 5 mg amlodipine. Would err on the side of caution as to avoid hypotension and falls in this elderly patient. BP continues to be elevated while inpatient. Would rely more so on outpatient values when titrating BP medications. Could consider addition of an DORIS/ARB if BP control continues to be suboptimal. Will defer to PCP on management. Dementia Patient on Seroquel 12.5 mg and donepezil 5 mg QHS. Continue while inpatient Insulin Dependent Diabetes Mellitus SSI while hospitalized. Resume home dosing on discharge Depression Continue home vortioxetine OAB Continue home oxybutynin HLD Continue statin therapy CKD IV Baseline Cr ~1.6-1.7. Stable Diet: NPO, IVF @ 100 mL/hr DVT ppx: heparin BID Code: full Dispo: escalating to PCU/Tele, will need rehab, has bed at [facility] (2) Chronic kidney disease, stage IV (severe): Admission and Anticipated Discharge Date Admission Date: February 06, 2023 Supervising Physician Co-Signing Physician Notes I personally examined the patient and verified all kinsey points of history and exam, discussed case, and agree with decision making with Dr Edwards feeling about the same as yesterday. Ongoing on and off fevers and chills. No real focal complaints. Vitals noted, in general she is awake and alert pleasant no distress. HEENT normocephalic atraumatic mucous membranes moist. Breathing unlabored no accessory muscle use good effort. Skin shows no rashes no pallor or icterus. Neuro without focal deficits. Sepsismost likely abdominal source, covering empirically, following blood cultures and serial exams. Interestingly her CBC prompted a peripheral smear that shows inclusion bodies consistent with anaplasmosiswe are certainly in a very endemic area, but at the same time the patient has been in the hospital for 10 days. Given how common it is around here and given that she does have a vague but predominantly constitutional sepsis syndrome, definitely obligated to treat and have added doxycycline, but at the same time I am certainly skeptical that this would be the culprit. DVT proph - heparin SQ Subjective Patient with worsening clinical status yesterday. Has had intermittent tachycardia and low grade fevers. Continues to feel worse. No longer having shaking chills. Review of Systems 2 Review of Systems: As per HPI Physical Exam 2 Physical Exam: Gen: thin appearing elderly female HEENT: AT NC MMM CV: RRR no m/r/g clinically well perfused Resp: CTAB no wheezing no increased work of breathing Abd: non-distended, tenderness right side, incision c/d/i MSK: no obvious deformities Psych: appropriate mood and affect Neuro: alert and oriented Skin: no rashes or bruising noted Results & Data Results & Data Vital Signs (Past 12 Hours) Vital Signs Temp Pulse Resp BP BP Pulse Ox O2 Del Method 02/17/23 00:08 37.9 C H 85 14 183/73 H 95 Room Air 02/16/23 20:28 37.5 C 85 18 131/68 94 Room Air 02/16/23 19:48 37.8 C H 85 16 132/67 94 Room Air 02/16/23 19:30 Room Air Laboratory Results 02/17/23 07:27 02/17/23 07:27 Diagnostic Findings Chest X-Ray 02/16/23 11:34 XR chest 2V PA/lateral HISTORY: fevers, ?pneumoperitoneum seen on prior CXR COMPARISON: Chest 02/14/2023. FINDINGS: No pneumothorax. No pleural effusions. The cardiac silhouette is normal in size. Mild interstitial thickening at the left lung base persists. No new focal lung consolidations to suggest a pneumonia. No evidence for pulmonary edema. Pneumoperitoneum again noted at the right hemidiaphragm. IMPRESSION: 1. Pneumoperitoneum again noted within the right upper quadrant. This could be due to recent surgery or possibly bowel perforation. Clinical correlation recommended. 2. No focal lung consolidations to suggest a pneumonia. Abdomen/Pelvis CT 02/16/23 15:56 FINDINGS: Lung bases: Unremarkable. No mass. No consolidation. ABDOMEN: Liver: Unremarkable. No mass. Gallbladder and bile ducts: Unremarkable. No calcified stones. No ductal dilation. Pancreas: Unremarkable. No mass. No ductal dilation. Spleen: Unremarkable. No splenomegaly. Adrenals: Unremarkable. No mass. Kidneys and ureters: Unremarkable. No solid mass. No hydronephrosis. Stomach and bowel: Diverticulosis, without acute diverticulitis. No obstruction. PELVIS: Appendix: No findings to suggest acute appendicitis. Bladder: Unremarkable. No mass. Reproductive: Hysterectomy. ABDOMEN and PELVIS: Intraperitoneal space: Postoperative free air in the abdomen. Bowel anastomosis in the RIGHT lower quadrant. There is mild free fluid at the anastomotic site however, no definite evidence of perforation (no extravasation of oral contrast into the peritoneum). Low index of suspicion for bowel leak. Bones/joints: Degenerative changes of the spine. No acute fracture. No dislocation. Soft tissues: Unremarkable. Vasculature: Atherosclerotic changes of the aorta. No abdominal aortic aneurysm. Lymph nodes: Unremarkable. No enlarged lymph nodes. Other findings: Recent midline laparotomy. IMPRESSION: Bowel anastomosis in the RIGHT lower quadrant. Mild free-fluid at the anastomotic site however, no definite evidence of perforation (no extravasation of oral contrast into the peritoneum). Low index of suspicion for bowel leak. Resident Activity Tracking Resident Involvement: Resident Care Provided Care Provided: [facility]
[2023-02-17] MEDS: INSULIN ASPART PER UNIT CHARGE SC SCH ×3 (07:52→18:01)
[2023-02-17 07:59] LABS: Hematocrit (blood only) 23.8 % (37.0-47.0); Hemoglobin 7.7 g/dl (12.0-16.0); Mean Corpuscular Hemoglobin 25.8 pg (25.0-34.0); Mean Corpuscular Hgb Conc 32.4 g/dL (32.0-36.0); Mean Corpuscular Volume 79.6 fL (80.0-100.0); Mean Platelet Volume 10.7 fL (9.4-12.4); Platelet Count 158 K/uL (130-400); RDW Coefficient of Variation 16.9 % (11.5-14.5); RDW Standard Deviation 49.1 fL (36.4-46.3); Red Blood Count 2.99 M/uL (4.20-5.40)
[2023-02-17] MEDS: ASCORBIC ACID 500 MG TAB PO SCH (08:00)
[2023-02-17] MEDS: amLODIPine BESYLATE 5 MG TAB PO SCH (08:00)
[2023-02-17] MEDS: CHOLECALCIFEROL 1,000 UNITS 25 MCG TAB PO SCH (08:00)
[2023-02-17] MEDS: DOCUSATE SODIUM 100 MG CAP PO SCH ×2 (08:01→22:24)
[2023-02-17] MEDS: HEPARIN SOD 5,000 UNIT/0.5 ML VIAL SQ SCH ×2 (08:01→22:25)
[2023-02-17 08:13] LABS: Albumin Globulin Ratio 0.9 (0.9-2); Albumin Level 2.8 gm/dl (3.4-5.0); BUN Creatinine Ratio 17.3 (10-20); Bilirubin,Total 0.8 mg/dl (0.2-1.0); Calcium 8.5 mg/dl (8.6-10.3); Creatinine Clr Calc Pharmacy 25.1 ml/min; Est GFR (African American) 35.7 ml/min; Est GFR (Non-African American) 30.8 ml/min; Potassium 3.1 mmol/L (3.5-5.1); Total Protein 5.8 gm/dl (6.0-8.3)
[2023-02-17] MEDS: POTASSIUM CHLORIDE / WTR 10 MEQ/100 ML PLCT IV SCH ×4 (08:58→14:56)
--- NOTE | 2023-02-17 09:18 | Surgery Progress Note ---
Date of Service February 17, 2023 Assessment & Plan (1) H/O right hemicolectomy: Plan: POD 11 Patient resting in bed CXR over weekend showed 02/14/23 IMPRESSION: Suggestion of pneumoperitoneum in the right upper quadrant. Correlation with recent surgical history is recommended end CT abdomen pelvis can be performed. Yesterday Patient had complaint of increasing abdominal pain Made NPO CT scan with oral and IV contrast shows IMPRESSION: Bowel anastomosis in the RIGHT lower quadrant. Mild free-fluid at the anastomotic site however, no definite evidence of perforation (no extravasation of oral contrast into the peritoneum). Low index of suspicion for bowel leak. However patient may have had a leak at some point given free air/fluid Imagining discussed with radiology currently no drainage abscess WBC WNL Passing flatus, Last BM 02/16/23 Urine Culture showing gram negative bacilli , sensitivities to follow Blood cultures pending Incision midline lino , no s/s of infection CDI , abdomen soft , tender Will continue conservative treatment keep NPO for now and continue IV fluids and IV antibiotics Per case management note patient was accepted to [facility] and they have a bed, although patient is not stable for transfer at this time Patient seen and examined with Dr. Keenan Admission and Anticipated Discharge Date Admission Date: February 06, 2023 Supervising Physician Co-Signing Physician Notes I personally saw and evaluated the patient with Tim SOLIZ and agree with the assessment plan. 87-year-old female status post open right hemicolectomy, Her CT images and and results were personally viewed and interpreted by myself and also discussed this with our in house radiology She does have some air and fluid adjacent to her anastomosis but extravasation of contrast Her abdominal exam is improved today Will keep her NPO and place her on Zosyn today She can have PO meds and sips of water I did discuss with her that if her clinical picture worsens she may need re- exploration with likely ostomy placement Subjective Patient resting in bed Still reporting abdominal pain Denies N/V Made NPO yesterday afternoon Physical Exam Constitutional: WD/WN, vitals as above Gastrointestinal (Abdomen): soft, TTP right side with some guarding, no rebound, improved from yesterday Results & Data Vital Signs (Past 12 Hours) Vital Signs Temp Pulse Resp BP Pulse Ox O2 Del Method 02/17/23 07:44 99.1 F 122 H 15 153/77 H 97 Room Air 02/17/23 00:08 100.2 F H 85 14 183/73 H 95 Room Air Diagnostic Findings [place], [place] [phone] CT Scan Report Patient: MIESHA BERRY Admit Date: 02/06/23 MR#: [id number] Address1: [address] Acct ID:[id number] Address2: [address] Date: 1935 [facility] Zip: [place] [address] Age: 87 Location: 3N Sex: F Room/Bed: N376-1 Att Phy: Javier Mary, DO Diagnosis: POST OPERATIVE RIGHT HEMICOLECTOMY Nani Phy: Sophie Murdock, Service Date: 02/16/23 Fam Phy: Interpreting Phy: Ranulfo Varela MDAdmit Phy: Javier Mary, DO Ordering Phy: Yvon Barraza cc: ~ Exam(s): CT ABDOMEN + PELVIS With Contrast Oral - High Density Amt: gastrograffin, IV Amt: 93 ml opti 320 EXAM: CT Abdomen and Pelvis With Intravenous Contrast CLINICAL HISTORY: Reason for exam: Evaluate for post operative bowel resection leak. TECHNIQUE: Axial computed tomography images of the abdomen and pelvis with intravenous contrast. CTDI is 19.31 mGy and DLP is 914.33 mGy-cm. Automated exposure control was utilized for the study. A dose lowering technique was utilized adhering to the principles of ALARA. CONTRAST: Patient received gastrograffin of Oral - High Density and 93 ml opti 320 of IV contrast COMPARISON: No relevant prior studies available. FINDINGS: Lung bases: Unremarkable. No mass. No consolidation. ABDOMEN: Liver: Unremarkable. No mass. Gallbladder and bile ducts: Unremarkable. No calcified stones. No ductal dilation. Pancreas: Unremarkable. No mass. No ductal dilation. Spleen: Unremarkable. No splenomegaly. Adrenals: Unremarkable. No mass. Kidneys and ureters: Unremarkable. No solid mass. No hydronephrosis. Stomach and bowel: Diverticulosis, without acute diverticulitis. No obstruction. PELVIS: Appendix: No findings to suggest acute appendicitis. Bladder: Unremarkable. No mass. Reproductive: Hysterectomy. ABDOMEN and PELVIS: Intraperitoneal space: Postoperative free air in the abdomen. Bowel anastomosis in the RIGHT lower quadrant. There is mild free fluid at the anastomotic site however, no definite evidence of perforation (no extravasation of oral contrast into the peritoneum). Low index of suspicion for bowel leak. Bones/joints: Degenerative changes of the spine. No acute fracture. No dislocation. Soft tissues: Unremarkable. Vasculature: Atherosclerotic changes of the aorta. No abdominal aortic aneurysm. Lymph nodes: Unremarkable. No enlarged lymph nodes. Other findings: Recent midline laparotomy. IMPRESSION: Bowel anastomosis in the RIGHT lower quadrant. Mild free-fluid at the anastomotic site however, no definite evidence of perforation (no extravasation of oral contrast into the peritoneum). Low index of suspicion for bowel leak. Electronically signed by: Ranulfo Varela MD 02/16/23 21:57 PM Dictated: 02/16/232156 Transcribed: 02/16/232156 PG Care Time/CCT Total # of Minutes Spent Total Time Spent with Patient: Total time spent is greater than 50% in coordination of care (as documented) at patient's floor/unit and/or counseling patient: Coding Level of Care Code 49613 Post Operative Follow-Up Diagnoses H/O right hemicolectomy Z90.49
[2023-02-17] MEDS ORDERED: SODIUM CHLORIDE 0.9% 250 ML IV PRN (10:18)
[2023-02-17 10:27] LABS: Basophils # (auto) 0.01 K/uL (0.00-0.20); Basophils % (auto) 0.1 %; Immature Granulocytes # (auto) 0.36 K/uL (0.01-0.20); Immature Granulocytes % (auto) 5.2 %; Lymphocytes # (auto) 0.33 K/uL (1.20-3.40); Lymphocytes % (auto) 4.8 %; Monocytes # (auto) 0.28 K/uL (0.11-0.59); Monocytes % (auto) 4.1 %; Neutrophils # (auto) 5.92 K/uL (1.40-6.50); Neutrophils % (auto) 85.8 %; Polychromasia 1+
[2023-02-17] MEDS ORDERED: PIPERACILLIN/TAZOBACTAM 4.5 GM in DEXTROSE 5% MINI-B 100 ML IV ONE (11:00)
[2023-02-17] MEDS: DOXYCYCLINE HYCLATE 100 MG in DEXTROSE 5% MINI-B 100 ML IV SCH (13:13)
[2023-02-17] MEDS ORDERED: KETOROLAC TROMETHAMINE 15 MG/ML VIAL IV ONE (15:51)
[2023-02-17 17:25] LABS: Hematocrit (blood only) 25.2 % (37.0-47.0); Hemoglobin 8.4 g/dl (12.0-16.0); Mean Corpuscular Hemoglobin 26.5 pg (25.0-34.0); Mean Corpuscular Hgb Conc 33.3 g/dL (32.0-36.0); Mean Corpuscular Volume 79.5 fL (80.0-100.0); Mean Platelet Volume 11.4 fL (9.4-12.4); Platelet Count 143 K/uL (130-400); RDW Coefficient of Variation 16.7 % (11.5-14.5); RDW Standard Deviation 48.4 fL (36.4-46.3); Red Blood Count 3.17 M/uL (4.20-5.40); White Blood Count 6.38 K/ul (4.8-10.8)
[2023-02-17 17:33] LABS: Albumin Globulin Ratio 0.9 (0.9-2); Albumin Level 2.6 gm/dl (3.4-5.0); BUN Creatinine Ratio 17.4 (10-20); Bilirubin,Total 0.8 mg/dl (0.2-1.0); Calcium 8.5 mg/dl (8.6-10.3); Creatinine Clr Calc Pharmacy 26.1 ml/min; Est GFR (African American) 37.5 ml/min; Est GFR (Non-African American) 32.3 ml/min; Globulin 2.9 gm/dl (2.5-4.0); Potassium 3.5 mmol/L (3.5-5.1); Total Protein 5.5 gm/dl (6.0-8.3)
--- NOTE | 2023-02-17 19:08 | Billing Data ---
Date of Service February 17, 2023 Coding Level of Care Code 20955 SUB INP/OBS CARE MIN
[2023-02-17] MEDS: PIPERACILLIN/TAZOBACTAM 4.5 GM in DEXTROSE 5% MINI-B 100 ML IV SCH (21:03)
[2023-02-17] MEDS: QUEtiapine FUMARATE 25 MG TABLET PO SCH (22:24)
[2023-02-17] MEDS: DONEPEZIL HCL 5 MG TAB PO SCH (22:26)
[2023-02-18] MEDS: DOXYCYCLINE HYCLATE 100 MG in DEXTROSE 5% MINI-B 100 ML IV SCH ×2 (00:25→11:42)
[2023-02-18] MEDS: SODIUM CHLORIDE 0.9% 1,000 ML IV SCH ×2 (00:28→11:01)
[2023-02-18] MEDS: INSULIN ASPART PER UNIT CHARGE SC SCH ×4 (00:32→18:20)
[2023-02-18] MEDS: oxyCODONE/ACETAMINOPHEN 5mg/325mg TAB PO PRN (01:16)
[2023-02-18] MEDS: HYDROmorphone INJ 0.5 MG/0.5 ML SYR IV PRN ×3 (01:45→23:45)
[2023-02-18 07:08] LABS: Hematocrit (blood only) 26.7 % (37.0-47.0); Hemoglobin 8.6 g/dl (12.0-16.0); Mean Corpuscular Hemoglobin 26.2 pg (25.0-34.0); Mean Corpuscular Hgb Conc 32.2 g/dL (32.0-36.0); Mean Corpuscular Volume 81.4 fL (80.0-100.0); Mean Platelet Volume 11.7 fL (9.4-12.4); Platelet Count 117 K/uL (130-400); RDW Coefficient of Variation 16.7 % (11.5-14.5); RDW Standard Deviation 50.3 fL (36.4-46.3); Red Blood Count 3.28 M/uL (4.20-5.40); White Blood Count 4.47 K/ul (4.8-10.8)
--- NOTE | 2023-02-18 07:11 | Hospitalist Progress Note ---
Date of Service February 18, 2023 Assessment & Plan (1) Elevated blood pressure reading: Plan: Pt is an 87 y/o female with PMH of DM, colon cancer, TIA (2021), dementia, chronic low back pain, CKD, and HLD presenting to the hospital for right hemicolectomy. Surgery was performed 02/06/2023. Patient now with intermittent fevers and elevated inflammatory markers. #Febrile State #Probable bowel leak Patient with intermittent fevers and productive cough. Tmax 39.4C. Procal 1.92 CRP 23.61. Blood cultures pending. Did have possible right sided pneumoperitoneum on CXR 02/14. Patient with clinical deterioration 02/16. Repeat CXR without obvious consolidation. Re-demonstrated pneumoperitoneum. Started on ceftriaxone for empiric abx. CT A&P consistent with prior leak, no obvious perforation. Abx adjusted as below. Blood cultures NGTD. Will need to closely monitor clinical course as she could easily clinically deteriorate at this point. 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 Ordered PCR testing for Anaplasmosis. Though clinical presentation is atypical for Anaplasmosis she does have constitutional symptoms and decreasing values in all cell lines on CBC. As [facility] is very endemic for tick borne illnesses will add on empiric doxy. Elevated BP Asymptomatic elevated blood pressure persistently in postoperative period. While likely reactive to recent surgery and pain, given pt's age and comorbidities she likely has underlying hypertension. With patient's history of CKD IV she is now on 5 mg amlodipine. Would err on the side of caution as to avoid hypotension and falls in this elderly patient. Holding amlodipine as patient with tenuous clinical status and recent soft BPs. Holding amlodipine Dementia Patient on Seroquel 12.5 mg and donepezil 5 mg QHS. Continue while inpatient Insulin Dependent Diabetes Mellitus SSI while hospitalized. Resume home dosing on discharge Depression Continue home vortioxetine OAB Continue home oxybutynin HLD Continue statin therapy CKD IV Baseline Cr ~1.6-1.7. Slight increase today. Continue to monitor Diet: NPO, sips and chips okay, started on PPN - monitor fluid status DVT ppx: heparin BID Code: full Dispo: PCU/Tele, will need rehab, has bed at [facility] Family Updated: 02/18 (2) Chronic kidney disease, stage IV (severe): Admission and Anticipated Discharge Date Admission Date: February 06, 2023 Supervising Physician Co-Signing Physician Notes I personally examined the patient and verified all kinsey points of history and exam, discussed case, and agree with decision making with Dr Edwards Probably feels a little better. No new complaints. Less chillsalthough she notes she generally gets them in the evening. Vitals noted, in general she is awake and alert pleasant no distress. HEENT normocephalic atraumatic mucous membranes moist. Breathing unlabored no accessory muscle use good effort. Skin shows no rashes no pallor or icterus. Neuro without focal deficits. Sepsismost likely abdominal source, covering empirically, following blood cultures and serial exams. Interestingly her CBC prompted a peripheral smear that shows inclusion bodies consistent with anaplasmosiswe are certainly in a very endemic area, but at the same time the patient has been in the hospital for 10 days. Given how common it is around here and given that she does have a vague but predominantly constitutional sepsis syndrome, definitely obligated to treat and have added doxycycline, but at the same time I am certainly skeptical that this would be the culprit, Although it can have an incubation period long enough. to be clear, still suspect intra-abdominal source DVT proph - heparin SQ Subjective Patient feeling better today. Continued significant abdominal pain. No SOB or CP. No more shaking chills or fevers. Review of Systems 2 Review of Systems: As per HPI Physical Exam 2 Physical Exam: Gen: thin appearing elderly female HEENT: AT NC MMM CV: RRR no m/r/g clinically well perfused Resp: CTAB no wheezing no increased work of breathing Abd: non-distended, tenderness right side, incision c/d/i MSK: no obvious deformities Psych: appropriate mood and affect Neuro: alert and oriented Skin: no rashes or bruising noted Results & Data Results & Data Vital Signs (Past 12 Hours) Vital Signs Temp Pulse Pulse Resp BP BP Pulse Ox 02/18/23 03:10 37.1 C 88 18 127/70 99 02/18/23 00:01 36.3 C L 67 19 150/69 H 98 02/17/23 23:00 67 02/17/23 20:00 02/17/23 19:54 36.8 C 69 20 133/65 93 O2 Del Method O2 Flow Rate 02/18/23 03:10 Nasal Cannula 2 02/18/23 00:01 Nasal Cannula 3 02/17/23 23:00 02/17/23 20:00 Nasal Cannula 3 02/17/23 19:54 Nasal Cannula 3 Laboratory Results 02/18/23 06:49 02/18/23 06:49 Resident Activity Tracking Resident Involvement: Resident Care Provided Care Provided: [facility]
[2023-02-18 07:38] LABS: Calcium 8.2 mg/dl (8.6-10.3); Potassium 3.2 mmol/L (3.5-5.1)
[2023-02-18 07:43] LABS: Immature Granulocytes # (auto) 0.05 K/uL (0.01-0.20); Immature Granulocytes % (auto) 1.1 %; Lymphocytes # (auto) 0.18 K/uL (1.20-3.40); Monocytes # (auto) 0.16 K/uL (0.11-0.59); Monocytes % (auto) 3.6 %; Neutrophils # (auto) 4.08 K/uL (1.40-6.50); Neutrophils % (auto) 91.3 %; Polychromasia 1+; Toxic Vacuolation 1+
[2023-02-18 07:44] LABS: Creatinine Clr Calc Pharmacy 20.8 ml/min; Est GFR (African American) 28.4 ml/min; Est GFR (Non-African American) 24.5 ml/min
--- NOTE | 2023-02-18 07:45 | Surgery Progress Note ---
Date of Service February 18, 2023 Assessment & Plan (1) H/O right hemicolectomy: Plan: POD 12 Patient resting in bed, was transferred to PCU 02/17/23 Received 1 unit of PRBC yesterday H/H 8.6 (7.7), 26 (23) Reports feeling better than yesterday however still having bilateral abdominal pain rates it a 12/21 with palpation + grimacing On 2L 02 via NC CXR over weekend showed 02/14/23 IMPRESSION: Suggestion of pneumoperitoneum in the right upper quadrant. Correlation with recent surgical history is recommended end CT abdomen pelvis can be performed. Made NPO 02/16/23 CT scan with oral and IV contrast shows IMPRESSION: Bowel anastomosis in the RIGHT lower quadrant. Mild free-fluid at the anastomotic site however, no definite evidence of perforation (no extravasation of oral contrast into the peritoneum). Low index of suspicion for bowel leak. However patient may have had a leak at some point given free air/fluid Imagining discussed with radiology currently no drainage abscess Urine Culture showing gram negative bacilli , sensitivities to follow Blood cultures NGTD WBC 4.4 today Passing flatus, Last BM 02/17/23 incontinent Continue IV Zosyn Discussed with hospitalist decreasing IV fluids, extremities edematous, + cough, may have sips and chips Encouraged to get up OOB today Will continue Conservative management at this time, may need to be re-imaged to evaluate fluid/free air No documented fevers this AM Try to wend off O2, encouraged incentive spirometry BMP pending Will continue to monitor Per case management note patient was accepted to [facility] and they have a bed, although patient is not stable for transfer at this time Admission and Anticipated Discharge Date Admission Date: February 06, 2023 Supervising Physician Co-Signing Physician Notes I personally saw and evaluated the patient with Tim SOLIZ and agree with the assessment plan. 87-year-old female status post open right hemicolectomy, She remains stable hemodynamically and without fevers of the last 24 hours Urine culture is noted and she is now on Zosyn which should cover any intra- abdominal and doxycycline for the possible anaplasmosis We will continue to follow along with her abdominal exam, she does have a decent amount of pain still She may ultimately require reexploration if she does not improve or worsens Subjective Patient resting in bed, was transferred to PCU Reports feeling better than yesterday however still having bilateral abdominal pain rates it a 12/21 denies SOB, CP, Bm Yesterday Review of Systems Constitutional: + fever (increased temps yesterday, none documented today) and + weakness; no chills Respiratory: + cough; no dyspnea Cardiovascular: no chest pain Gastrointestinal: + abdominal pain; no nausea and no vomit ing Genitourinary: + urinary incontinence Physical Exam Physical Exam: alert, oriented Constitutional: cooperative and comfortable; no acute distress Respiratory: normal respiratory effort and able to speak in complete sentences; no respiratory distress Cardiovascular: Rate/Rhythm: regular rate Gastrointestinal (Abdomen): Inspection/Auscultation: + abdominal surgical incision (lino midline no s/s of infection noted ); abdomen not distended Percussion/Palpation: + abdomen tender and abdomen soft Results & Data Vital Signs (Past 12 Hours) Vital Signs Temp Pulse Pulse Resp BP BP Pulse Ox 02/18/23 03:10 98.8 F 88 18 127/70 99 02/18/23 00:01 97.3 F L 67 19 150/69 H 98 02/17/23 23:00 67 02/17/23 20:00 02/17/23 19:54 98.2 F 69 20 133/65 93 O2 Del Method O2 Flow Rate 02/18/23 03:10 Nasal Cannula 2 02/18/23 00:01 Nasal Cannula 3 02/17/23 23:00 02/17/23 20:00 Nasal Cannula 3 02/17/23 19:54 Nasal Cannula 3 PG Care Time/CCT Total # of Minutes Spent Total Time Spent with Patient: Total time spent is greater than 50% in coordination of care (as documented) at patient's floor/unit and/or counseling patient: Coding Level of Care Code 17685 Post Operative Follow-Up Diagnoses H/O right hemicolectomy Z90.49
[2023-02-18] MEDS: PIPERACILLIN/TAZOBACTAM 4.5 GM in DEXTROSE 5% MINI-B 100 ML IV SCH ×2 (08:27→21:15)
[2023-02-18] MEDS: POTASSIUM CHLORIDE / WTR 10 MEQ/100 ML PLCT IV SCH ×2 (08:36→09:35)
[2023-02-18] MEDS: HEPARIN SOD 5,000 UNIT/0.5 ML VIAL SQ SCH ×2 (08:42→21:18)
[2023-02-18] MEDS: POTASSIUM CHLORIDE CRTAB 20 MEQ TABCR PO STA ×2 (08:42→09:01)
[2023-02-18] MEDS: DOCUSATE SODIUM 100 MG CAP PO SCH ×2 (08:43→21:17)
[2023-02-18] MEDS: CHOLECALCIFEROL 1,000 UNITS 25 MCG TAB PO SCH (08:43)
[2023-02-18] MEDS: ASCORBIC ACID 500 MG TAB PO SCH (08:43)
[2023-02-18] MEDS: amLODIPine BESYLATE 5 MG TAB PO SCH (08:43)
[2023-02-18] MEDS ORDERED: LANTUS PER UNIT CHARGE SC SCH (09:00)
--- NOTE | 2023-02-18 10:46 | Pharmacy Report ---
Pharmacy Glycemic Short Note 2 - Date of Service February 18, 2023 - Glycemic Short BSG Results (Last 24 hours): 02/17/23 02/17/23 02/17/23 11:48 11:54 12:21 Glucose POC Glucose 68 L* 63 L* 103 H 02/17/23 02/17/23 02/17/23 16:12 16:59 17:58 Glucose 110 H POC Glucose 118 H 105 H 02/18/23 02/18/23 02/18/23 00:04 06:24 06:49 Glucose 125 H POC Glucose 128 H 131 H 02/18/23 07:50 Glucose POC Glucose 134 H OUTPATIENT ANTIDIABETIC REGIMEN: * Lantus 20 units SQ qPM * A1c = 8% ASSESSMENT: 02/18: * Patient had a hypoglycemic event yesterday at lunchtime with a BSG of 63 mg/dL. Thankfully patient was asymptomatic but did require 1/2 amp of D50 to correct BSG. All insulin was held yesterday. * Patient remains NPO but fasting trended up to 131 mg/dL this AM. Likely related to basal deficiency from previous day. Will order 5 units of Lantus. Novolog was loosened yesterday. Continue to trend postprandials and will adjust this afternoon if needed. 02/16: * BSGs have been reasonably well-controlled over past 72 hours, but hyperglycemic trend at lunch noted * Will tighten AM Novolog parameters this morning * Fasting BSG of 116 mg/dL this morning - continue current basal * Possible d/c to [facility] today 02/11: * Keren received 6 units of bolus insulin yesterday. * Diet has advanced today, she is tolerating more carbohydrates. * Fasting BSG elevated this AM, Lantus given at ~0.15 units/kg with Lunch * Mealtime BSGs have been slightly elevated, tighten goal range and carbohydrate coverage 02/09: * Keren did not receive any insulin yesterday * She continues on a clear liquid diet, anticipate higher need for insulin once diet advances. * Continue Novolog at weight based stress of 2 with increase goal range until diet advanced to prevent hypoglycemia. 02/08: * Keren is a 87 yo T2DM s/p open right hemicolectomy * Tolerating clear liquid diet per surgery. No nausea or vomiting. * Patient received Lantus 10 units on 02/06. This was reduced to 8 units on 02/07. Fasting continues to trend downward and was below goal this am at 70 mg/dL. Will hold further basal insulin for now. * Continue weight based Novolog for now (~stress 2) PLAN FOR INPATIENT GLYCEMIC CONTROL: * Basal insulin * Lantus 5 units SC daily * Bolus insulin * NovoLog per scale ACHS or Q6hrs while NPO * Goal Range: Low 110 mg/dL - High 140 mg/dL * Correction Factor: 30 mg/dL/unit * Nutritional / Prandial insulin per carb ratio of 1 unit per 10 grams CHO consumed
[2023-02-18] MEDS ORDERED: TPN/PPN CONSULT PHARMACY PRN (12:59)
[2023-02-18] MEDS ORDERED: TPN/PPN CONSULT PHARMACY STA (13:04)
--- NOTE | 2023-02-18 14:12 | Pharmacy Report ---
Pharmacy PN Initial Consult - Date of Service February 18, 2023 - Scope Pharmacy has been consulted to manage parenteral nutrition orders and order appropriate labs. As part of the Nutrition Support Team guidelines, pharmacy will work in conjunction with dietary when determining the patients caloric needs. - Subjective The patient is a 87 year old F admitted on 02/06/23 14:18 for POST OPERATIVE RIGHT HEMICOLECTOMY. Patient is to receive parenteral nutrition for prolonged NPO status. Pertinent PMH: * CKD - Objective Height: 5 ft 4.5 in Weight: 69.4 kg Diet: NPO Intake & Output (Last 24Hrs): Intake & Output 02/16/23 02/17/23 02/18/23 02/19/23 06:59 06:59 06:59 06:59 Intake Total 1515 / 1515 3100.000 / 3100.000 1433.333 / 1433.333 Output Total 701 / 701 301 / 301 Balance - 814 / 814 2799.000 / 2799.000 1433.333 / 1433.333 Weight 69.4 kg Laboratory Data (Last 24 Hrs):: 02/17/23 02/18/23 16:59 06:49 Sodium 134 L 137 Potassium 3.5 3.2 L Chloride 101 106 Carbon Dioxide 22 22 BUN 25 H 29 H Creatinine 1.44 H 1.81 H D Glucose 110 H 125 H Calcium 8.5 L 8.2 L Total Bilirubin 0.8 AST 69 H ALT 34 Alkaline Phosphatase 262 H Albumin 2.6 L Nutrition Assessment:: Please refer to the Notes section of the EMR for the most recent rockboard lather note. - Assessment 02/18: * Patient is POD #12 s/p right hemicolectomy. History of CKD with SCr of 1.81 mg/dL today. Confirmed with provider and no fluid restriction necessary for PPN. * Appreciate dietitian's recommendations for macronutrients. * Electrolytes mostly within normal limits. No Mag or Phos today so will avoid putting these in bag #1. * KCl 20 mEq IV replaced this morning for hypokalemia. * Okay to discontinue ongoing fluid orders once PPN starts. Will keep day #1 formula simple until more lab work returns. * IV team confirmed peripheral IV access is adequate to run PPN. - Plan For day #1 of PPN administration, the following will be ordered: Macronutrients Amino acids 85 grams/day Dextrose 100 grams/day Lipids 50 grams/day Micronutrients Sodium chloride 100 mEq Potassium acetate 80 mEq Multivitamins 10 mL Trace Elements 1 mL Thiamine 100 mg Total volume 2092 mL to be infused over 24 hrs will provide 1180 kcal/day Final osmolarity 817.4 mOsm/L (maximum for PPN is 900 mOsm/L) Labs to be ordered per PN order protocol Pharmacy will follow and adjust parenteral nutrition orders on a daily basis. Thank you.
[2023-02-18 15:26] LABS: Bilirubin,Total 0.9 mg/dl (0.2-1.0); Magnesium 1.5 mg/dl (1.7-2.4); Phosphorus 4.2 mg/dl (2.5-4.9)
[2023-02-18] MEDS ORDERED: CLINOLIPID 20% IV FAT EMULSION 250 ML IV SCH (16:00)
[2023-02-18] MEDS ORDERED: [UNRECOGNIZED DRUG - OTHER] IV SCH (16:00)
[2023-02-18] MEDS ORDERED: DEXTROSE 10% 1,000 ML IV PRN (16:00)
[2023-02-18] MEDS ORDERED: PERIPHERAL TPN IV SCH (16:00)
[2023-02-18] MEDS: MAGNESIUM SULFATE / D5W 1 GM/100 ML BAG IV SCH ×2 (16:14→18:02)
--- NOTE | 2023-02-18 19:49 | Billing Data ---
Date of Service February 18, 2023 Coding Level of Care Code 06552 SUB INP/OBS CARE
[2023-02-18] MEDS: VORTIOXETINE HYDROBROMIDE 10 MG PO SCH (21:18)
[2023-02-18] MEDS: QUEtiapine FUMARATE 25 MG TABLET PO SCH (21:18)
[2023-02-18] MEDS: DONEPEZIL HCL 5 MG TAB PO SCH (21:18)
[2023-02-18] MEDS: STOP CLINOLIPID SCH (22:04)
[2023-02-19] MEDS: INSULIN ASPART PER UNIT CHARGE SC SCH ×4 (00:12→18:14)
[2023-02-19] MEDS: DOXYCYCLINE HYCLATE 100 MG in DEXTROSE 5% MINI-B 100 ML IV SCH ×2 (00:15→16:49)
[2023-02-19 06:30] LABS: Hematocrit (blood only) 25.3 % (37.0-47.0); Hemoglobin 8.2 g/dl (12.0-16.0); Mean Corpuscular Hemoglobin 26.8 pg (25.0-34.0); Mean Corpuscular Hgb Conc 32.4 g/dL (32.0-36.0); Mean Corpuscular Volume 82.7 fL (80.0-100.0); Mean Platelet Volume 12.1 fL (9.4-12.4); Platelet Count 151 K/uL (130-400); RDW Coefficient of Variation 17.6 % (11.5-14.5); RDW Standard Deviation 53.1 fL (36.4-46.3); Red Blood Count 3.06 M/uL (4.20-5.40); White Blood Count 13.89 K/ul (4.8-10.8)
--- NOTE | 2023-02-19 06:40 | Hospitalist Progress Note ---
Date of Service February 19, 2023 Assessment & Plan (1) Elevated blood pressure reading: Plan: Pt is an 87 y/o female with PMH of DM, colon cancer, TIA (2021), dementia, chronic low back pain, CKD, and HLD presenting to the hospital for right hemicolectomy. Surgery was performed 02/06/2023. Patient with minimal improvement with conservative management - plan for return to OR 02/19. #Febrile State #Probable bowel leak Patient with intermittent fevers and productive cough. Tmax 39.4C. Procal 1.92 CRP 23.61. Patient with clinical deterioration 02/16. Repeat CXR without obvious consolidation. Re-demonstrated pneumoperitoneum. Started on ceftriaxone for empiric abx. CT A&P consistent with prior leak, no obvious perforation. Abx adjusted as below. Blood cultures NGTD. Surgery recommend repeat trip to the OR. Will need to closely monitor clinical course as she could easily clinically deteriorate at this point. Antibiotics: Ceftriaxone started 02/16 Switched to Zosyn 02/17 Added doxycycline 02/17 for empiric anaplasmosis coverage ARCELIA on CKD Baseline Cr ~ 1.6-1.7. Has had a significant bump in creatinine to 2.58. Likely pre-renal vs intra-renal with ATN. Check urine lytes and UA. No fluid restriction at this time. Could consider getting nephro on board. No current indications for renal replacement therapy. Will continue to monitor. 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 Ordered PCR testing for Anaplasmosis. Though clinical presentation is atypical for Anaplasmosis she does have constitutional symptoms and decreasing values in all cell lines on CBC. As [facility] is very endemic for tick borne illnesses will add on empiric doxy. Elevated BP Asymptomatic elevated blood pressure persistently in postoperative period. While likely reactive to recent surgery and pain, given pt's age and comorbidities she likely has underlying hypertension. With patient's history of CKD IV she is now on 5 mg amlodipine. Would err on the side of caution as to avoid hypotension and falls in this elderly patient. Holding amlodipine as patient with tenuous clinical status and recent soft BPs. Holding amlodipine Dementia Patient on Seroquel 12.5 mg and donepezil 5 mg QHS. Continue while inpatient Insulin Dependent Diabetes Mellitus SSI while hospitalized. Resume home dosing on discharge Depression Continue home vortioxetine OAB Continue home oxybutynin HLD Continue statin therapy CKD IV Baseline Cr ~1.6-1.7. Slight increase today. Continue to monitor Diet: NPO, sips and chips okay, started on PPN - monitor fluid status DVT ppx: heparin BID Code: full Dispo: PCU/Tele, will need rehab, has bed at [facility] Family Updated: 02/19 at bedside (2) Chronic kidney disease, stage IV (severe): Admission and Anticipated Discharge Date Admission Date: February 06, 2023 Supervising Physician Co-Signing Physician Notes I personally examined the patient and verified all kinsey points of history and exam, discussed case, and agree with decision making with Dr Edwards seen postopawakens to voice, nods that she is okay but no real HPI review of systems obtainable. Family present, updated the best my ability and their satisfaction. Vitals noted, in general she is Fatigued and groggy but no distress. HEENT normocephalic atraumatic mucous membranes moist. cardio is regular without rubs murmurs gallops lungs are clear to auscultation bilaterally no rales rhonchi or wheeze with good effort. Skin shows no rashes no pallor or icterus. Neuro without focal deficits. Sepsis abdominal sourcenow postop again, appreciate surgical assistance. Continue broad antibiotics and supportive care. Acute renal failure is almost certainly ATNmaintain perfusion, follow electrolytes, no indications for dialysis at this time. Check urinalysis and fractional excretion of sodiumcontinue fluid support. Interestingly her CBC prompted a peripheral smear that shows inclusion bodies consistent with anaplasmosiswe are certainly in a very endemic area, but at the same time the patient has been in the hospital for 10 days. Given how common it is around here and given that she does have a vague but predominantly constitutional sepsis syndrome, definitely obligated to treat and have added doxycyclineBut to be clear her sepsis was from an abdominal source DVT proph - heparin SQ Subjective Patient with minimal interval improvement. No fevers or chills. Continued abdominal pain. Review of Systems 2 Review of Systems: As per HPI Physical Exam 2 Physical Exam: Gen: thin appearing elderly female HEENT: AT NC MMM CV: RRR no m/r/g clinically well perfused Resp: CTAB no wheezing no increased work of breathing Abd: soft, diffusely tender MSK: no obvious deformities Psych: appropriate mood and affect Neuro: alert and oriented Skin: no rashes or bruising noted Results & Data Results & Data Vital Signs (Past 12 Hours) Vital Signs Temp Pulse Pulse Pulse Resp BP BP 02/19/23 04:00 36.4 C L 84 20 133/81 02/18/23 23:31 36.4 C L 84 20 129/74 02/18/23 23:00 79 02/18/23 21:00 02/18/23 19:39 36.8 C 79 18 123/63 Pulse Ox O2 Del Method O2 Flow Rate 02/19/23 04:00 98 Nasal Cannula 2 02/18/23 23:31 96 Nasal Cannula 2 02/18/23 23:00 02/18/23 21:00 Nasal Cannula 2 02/18/23 19:39 99 Nasal Cannula 2 Laboratory Results 02/19/23 06:11 02/19/23 06:11 Resident Activity Tracking Resident Involvement: Resident Care Provided Care Provided: Adult Hospital Medicine
[2023-02-19 07:03] LABS: BUN Creatinine Ratio 18.2 (10-20); Calcium 8.7 mg/dl (8.6-10.3); Creatinine Clr Calc Pharmacy 14.7 ml/min; Est GFR (African American) 18.5 ml/min; Magnesium 1.5 mg/dl (1.7-2.4); Phosphorus 3.1 mg/dl (2.5-4.9); Potassium 4.1 mmol/L (3.5-5.1)
[2023-02-19 07:35] LABS: Basophils # (auto) 0.02 K/uL (0.00-0.20); Basophils % (auto) 0.1 %; Echinocytes 1+; Immature Granulocytes # (auto) 0.15 K/uL (0.01-0.20); Immature Granulocytes % (auto) 1.1 %; Lymphocytes # (auto) 0.53 K/uL (1.20-3.40); Lymphocytes % (auto) 3.8 %; Monocytes # (auto) 0.19 K/uL (0.11-0.59); Monocytes % (auto) 1.4 %; Neutrophils % (auto) 93.6 %; Polychromasia 1+
--- NOTE | 2023-02-19 07:41 | Surgery Progress Note ---
Date of Service February 19, 2023 Assessment & Plan (1) H/O right hemicolectomy: Plan: POD 13 Patient resting in bed, was transferred to PCU 02/17/23 Reports feeling same as yesterday however still having bilateral abdominal pain rates it a 8/10 with palpation + grimacing On 2L 02 via NC CXR over weekend showed 02/14/23 IMPRESSION: Suggestion of pneumoperitoneum in the right upper quadrant. Correlation with recent surgical history is recommended end CT abdomen pelvis can be performed. Made NPO 02/16/23 CT scan with oral and IV contrast shows IMPRESSION: Bowel anastomosis in the RIGHT lower quadrant. Mild free-fluid at the anastomotic site however, no definite evidence of perforation (no extravasation of oral contrast into the peritoneum). Low index of suspicion for bowel leak. However patient may have had a leak at some point given free air/fluid Imagining discussed with radiology currently no drainage abscess Urine Culture showing gram negative bacilli , sensitive to Zosyn Blood cultures NGTD WBC 13.8 is on IV zoysn No documented fevers this AM or overnight Continue IV Zosyn D/C IV fluids yesterday started on PPN extremities edematous, + cough, Given increase in WBC and no real improvement in clinical status/abdominal pain patient will be taken back to the OR today for a Laparotomy, possible bowel resection, possible ostomy with Dr. Keenan. Admission and Anticipated Discharge Date Admission Date: February 06, 2023 Supervising Physician Co-Signing Physician Notes I personally saw and evaluated the patient with Tim SOLIZ and agree with the assessment plan. 87-year-old female status post open right hemicolectomy, worsening WBC and renal function She still remains hemodynamically stable without fevers However she does have a rising white blood cell count now as well as a rising serum creatinine This coupled with her abdominal exam I think reexploration she likely has an anastomotic leak Will plan on exploratory laparotomy, possible bowel resection, possible ostomy Consent was obtained, risks discussed including bleeding, infection, need for reoperation Subjective Pt reports feeling the same as yesterday Continued abdominal pain rates a 8/10 bilaterally Denies fever, chills, N/V, Flatus, Bm Review of Systems Constitutional: + fatigue and + weakness; no fever and n o chills Respiratory: + cough; no dyspnea (on 2 L o2 via NC) Cardiovascular: no chest pain Gastrointestinal: + abdominal pain (11/20); no nausea and n o vomiting Genitourinary: + urinary incontinence Musculoskeletal: + muscle weakness Physical Exam Physical Exam: alert oriented Constitutional: + frail appearing and cooperative; no ac [place] distress Respiratory: normal respiratory effort and able to speak in complete sentences (on 02 2L/min via NC); no respiratory distress Cardiovascular: Rate/Rhythm: regular rate (84 bpm) Gastrointestinal (Abdomen): Inspection/Auscultation: + abdominal surgical incision (lino midline, CDI no s/s of infection noted ) Percussion/Palpation: + abdomen tender (+ grimacing ) and abdomen soft Results & Data Vital Signs (Past 12 Hours) Vital Signs Temp Pulse Pulse Resp BP BP Pulse Ox 02/19/23 04:00 97.5 F L 84 20 133/81 98 02/18/23 23:31 97.5 F L 84 20 129/74 96 02/18/23 23:00 79 02/18/23 21:00 O2 Del Method O2 Flow Rate 02/19/23 04:00 Nasal Cannula 2 02/18/23 23:31 Nasal Cannula 2 02/18/23 23:00 02/18/23 21:00 Nasal Cannula 2 PG Care Time/CCT Total # of Minutes Spent Total Time Spent with Patient: Total time spent is greater than 50% in coordination of care (as documented) at patient's floor/unit and/or counseling patient: Coding Level of Care Code 86428 Post Operative Follow-Up Diagnoses H/O right hemicolectomy Z90.49
[2023-02-19] MEDS: PIPERACILLIN/TAZOBACTAM 4.5 GM in DEXTROSE 5% MINI-B 100 ML IV SCH ×2 (08:03→20:49)
[2023-02-19] MEDS: HEPARIN SOD 5,000 UNIT/0.5 ML VIAL SQ SCH (08:06)
[2023-02-19] MEDS: LANTUS PER UNIT CHARGE SC SCH (08:18)
[2023-02-19] MEDS: HYDROmorphone INJ 0.5 MG/0.5 ML SYR IV PRN (08:19)
--- NOTE | 2023-02-19 11:43 | Pharmacy Report ---
PHA: Parenteral Nutrition Con - Date of Service February 19, 2023 - Scope Pharmacy was consulted on 02/18 to manage parenteral nutrition orders for this patient. - Subjective The patient is currently on day 2 of peripheral parenteral nutrition for prolonged NPO status. - Objective Height: 5 ft 4.5 in Weight: 71 kg Diet: NPO Intake & Output (24hrs):: Intake & Output 02/17/23 02/18/23 02/19/23 02/20/23 06:59 06:59 06:59 06:59 Intake Total 1515 / 1515 3100.000 / 3100.000 217.333 / 2172.333 Output Total 701 / 701 301 / 301 150 / 150 Balance 814 / 814 2799.000 / 2799.000 / Weight 71 kg 71 kg Laboratory Data (Last 24 Hr):: 02/18/23 02/19/23 14:40 06:11 Sodium 134 L Potassium 4.1 D Chloride 102 Carbon Dioxide 23 BUN 47 H Creatinine 2.58 H D Glucose 244 H Calcium 8.7 Phosphorus 4.2 3.1 D Magnesium 1.5 L 1.5 L Total Bilirubin 0.9 AST 48 H ALT 26 Alkaline Phosphatase 154 H Triglycerides 262 H Nutrition Assessment:: Please refer to the Notes section of the EMR for the most recent home health occupational therapist note. - Assessment F: PPN @ 87.167 mL/hr E: Na 134; Mag 1.5 Others WNL; phos downtrending N: Glucose elevated, TG 262 - Monitor Patient with significant increase in SCr this morning, discussed with hospitalist, surgery re: volume status- ppn to continue without restriction. Also discussed with dietary. Patients BSGs elevated with initiation of PPN yesterday, will add insulin to bag today, Slightly reduced AA/dextrose content today given increase in BUN/SCr and elevated blood sugars. Cautious with electrolytes given the change in renal function, potassium was reduced in bag. Magnesium replaced outside of PPN. - Plan For day 2 of PN administration, the following will be ordered: Macronutrients Amino acids 66 grams/day Dextrose 78 grams/day Lipids 50 grams/day Micronutrients Sodium phosphate 15 MMol Sodium chloride 100 mEq Sodium acetate 40 mEq Potassium acetate 40 mEq Magnesium sulfate 4.06 mEq Multivitamins 10 mL Trace Elements 1 mL Additional additives: Regular Insulin 10 units Total volume 1658.1 mL to be infused over 24 hrs will provide 1030 kcal/day Final osmolarity 877.02 mOsm/L (maximum for PPN is 900 mOsm/L) Labs, as indicated, will be ordered per protocol Pharmacy will continue to follow and adjust parenteral nutrition orders on a daily basis. Thank you for allowing us to participate in the care of this patient.
--- NOTE | 2023-02-19 11:49 | Pharmacy Report ---
Pharmacy Glycemic Short Note 2 - Date of Service February 19, 2023 - Glycemic Short BSG Results (Last 24 hours): 02/18/23 02/18/23 02/19/23 18:05 23:49 05:54 Glucose POC Glucose 173 H 256 H 254 H 02/19/23 06:11 Glucose 244 H POC Glucose OUTPATIENT ANTIDIABETIC REGIMEN: * Lantus 20 units SQ qPM * A1c = 8% ASSESSMENT: 02/19: * Patient's blood sugars elevated with initiation of Peripheral nutrition yesterday. Increase lantus to 10 units. * Dextrose content of ppn was slightly reduced today, will add 10 units of insulin to PPN bag to help cover the dextrose * Correction factor tightened to 25. Continue to monitor 02/18: * Patient had a hypoglycemic event yesterday at lunchtime with a BSG of 63 mg/dL. Thankfully patient was asymptomatic but did require 1/2 amp of D50 to correct BSG. All insulin was held yesterday. * Patient remains NPO but fasting trended up to 131 mg/dL this AM. Likely related to basal deficiency from previous day. Will order 5 units of Lantus. Novolog was loosened yesterday. Continue to trend postprandials and will adjust this afternoon if needed. 02/16: * BSGs have been reasonably well-controlled over past 72 hours, but hyperglycemic trend at lunch noted * Will tighten AM Novolog parameters this morning * Fasting BSG of 116 mg/dL this morning - continue current basal * Possible d/c to [facility] today 02/11: * Keren received 6 units of bolus insulin yesterday. * Diet has advanced today, she is tolerating more carbohydrates. * Fasting BSG elevated this AM, Lantus given at ~0.15 units/kg with Lunch * Mealtime BSGs have been slightly elevated, tighten goal range and carbohydrate coverage 02/09: * Keren did not receive any insulin yesterday * She continues on a clear liquid diet, anticipate higher need for insulin once diet advances. * Continue Novolog at weight based stress of 2 with increase goal range until diet advanced to prevent hypoglycemia. 02/08: * Keren is a 87 yo T2DM s/p open right hemicolectomy * Tolerating clear liquid diet per surgery. No nausea or vomiting. * Patient received Lantus 10 units on 02/06. This was reduced to 8 units on . Fasting continues to trend downward and was below goal this am at 70 mg/dL. Will hold further basal insulin for now. * Continue weight based Novolog for now (~stress 2) PLAN FOR INPATIENT GLYCEMIC CONTROL: * Basal insulin * Lantus 10 units SC daily * Bolus insulin * NovoLog per scale ACHS or Q6hrs while NPO * Goal Range: Low 110 mg/dL - High 140 mg/dL * Correction Factor: 25 mg/dL/unit * Nutritional / Prandial insulin per carb ratio of 1 unit per 10 grams CHO consumed 10 units of regular insulin added to parenteral nutrition.
[2023-02-19] MEDS ORDERED: LIDOCAINE 2% 2 ML VIAL/AMP(20MG/ML) INFIL ONE (12:12)
[2023-02-19] MEDS ORDERED: PROPOFOL IV EMULSION 10 MG/ML 20 ML VIAL IV ONE (12:12)
[2023-02-19] MEDS ORDERED: ROCURONIUM BROMIDE 10 MG/ML 5 ML VIAL IV ONE (12:12)
[2023-02-19] MEDS ORDERED: DEXAMETHASONE SOD INJ 4 MG/ML VIAL ONE (12:12)
[2023-02-19] MEDS ORDERED: NEOSTIGMINE METHYLSULFATE 1 MG/ML 10ML VIAL ONE (12:12)
[2023-02-19] MEDS ORDERED: fentaNYL citrate PF 100 MCG/2 ML VIAL ONE ×2 (12:12→14:23)
[2023-02-19] MEDS ORDERED: ONDANSETRON INJ 2 MG/ML 2 ML VIAL ONE ×2 (12:12→15:13)
[2023-02-19] MEDS ORDERED: GLYCOPYRROLATE 0.2 MG/ML VIAL ONE (12:12)
[2023-02-19] MEDS: LACTATED RINGER'S 1,000 ML IV SCH ×2 (12:14→19:41)
--- NOTE | 2023-02-19 12:17 | Anesthesiology Consultation ---
Date of Service February 19, 2023 Assessment & Plan (1) Encounter for pre-operative examination: Chart Review Chart Review: Acceptable Risk for Surgery History Surgery Operation Date: 02/06/23 12:00 Proposed Procedures p Open Left Hemicolectomy - Javier Mary DO Operation Date: 02/19/23 07:50 Proposed Procedures p Exploratory Laparotomy, Possible Bowel Resection, Possible Osteotomy - Parviz Keenan DO Height/Weight Height: 5 ft 4.5 in Weight: 71 kg Allergies Allergy/AdvReac Type Severity Reaction Status Date / Time adhesive tape AdvReac Mild SKIN Verified 02/06/23 10:46 IRRITATION bandaids AdvReac Mild SKIN Uncoded 02/06/23 10:46 IRRITATION Medications Home Medications Medication Instructions Recorded Confirmed Last Taken donepezil 5 mg tablet (Aricept) 5 mg PO HS 10/19/18 02/06/23 02/04/23 latanoprost 0.005 % eye drops 1 drp OPB HS 10/19/18 02/06/23 02/05/23 23:00 quetiapine 25 mg tablet (Seroquel) 12.5 mg PO HS 10/19/18 02/06/23 02/04/23 blood-glucose meter #1 ea 09/14/20 01/29/23 Unknown acetaminophen 500 mg capsule 1,000 mg PO BID PRN Pain 11/08/21 02/06/23 02/04/23 Wheeled Walker #1 ea 03/28/22 01/28/23 Unknown ascorbic acid (vitamin C) 500 mg 500 mg PO QAM 05/29/22 02/06/23 02/05/23 08:00 capsule vortioxetine 10 mg tablet 10 mg PO HS 05/29/22 02/06/23 02/04/23 (Trintellix) omega-3 acid ethyl esters 1 gram 1 cap PO BID 08/08/22 02/06/23 02/04/23 capsule BD Ultra-Fine Sheri Pen Needle 32 #100 ea 09/01/22 01/29/23 Unknown gauge x 5/32" (pen needle, diabetic) ferrous sulfate 325 mg (65 mg 325 mg PO Q2D 10/03/22 02/06/23 02/04/23 iron) tablet meclizine 25 mg tablet 25 mg PO TID PRN dizziness or 10/03/22 02/06/23 01/11/23 vertigo #10 tabs oxybutynin chloride 10 mg 10 mg PO QAM #90 tabs 10/20/22 02/06/23 02/04/23 tablet,extended release 24 hr cholecalciferol (vitamin D3) 50 50 mcg PO QAM 11/27/22 02/06/23 02/05/23 08:00 mcg (2,000 unit) capsule calcium 600 mg capsule 600 mg PO QAM 01/06/23 02/06/23 02/05/23 08:00 vit C 250 mg-vit E 90 mg-zinc 40 1 tab PO QPM 01/06/23 02/06/23 02/05/23 20:00 mg-copper 1 [id number] capsule (PreserVision AREDS-2) rosuvastatin 10 mg tablet 10 mg PO QAM 01/29/23 02/06/23 02/04/23 aspirin 81 mg tablet 81 mg PO DAILY 02/06/23 02/06/23 02/04/23 clopidogrel 75 mg tablet (Plavix) 75 mg PO QAM 02/06/23 02/06/23 01/07/23 darbepoetin bao in polysorbat 60 60 mcg subcut .q2wks 02/06/23 02/06/23 01/23/23 mcg/mL in polysorbate injection (Aranesp) insulin glargine 100 unit/mL (3 18 unit (0.18 mL) subcut QPM #30 mL 02/13/23 Unknown mL) subcutaneous pen (Lantus Solostar U-100 Insulin) Active Medications Generic Name Dose Route Start Last Admin Trade Name Freq PRN Reason Stop Dose Admin Acetaminophen 650 mg 02/06/23 16:29 02/17/23 17:37 Acetaminophen 325 Mg Tab PO 03/08/23 16:28 650 mg Q6H PRN Administration Mild Pain (Scale 1, 2, 3) Amlodipine Besylate 5 mg 02/14/23 09:00 02/18/23 08:43 Amlodipine Besylate 5 Mg Tab PO 03/16/23 08:59 5 mg QAM FANNIE Administration Ascorbic Acid 500 mg 02/07/23 09:00 02/18/23 08:43 Ascorbic Acid 500 Mg Tab PO 03/09/23 08:59 500 mg QAM FANNIE Administration Clopidogrel Bisulfate 75 mg 02/12/23 09:00 02/16/23 08:10 Clopidogrel Bisulfate 75 Mg Tab PO 03/14/23 08:59 75 mg QAM FANNIE Administration Dextrose 25 - 50 ml 02/06/23 16:29 02/17/23 12:00 Dextrose 50% 50 Ml Syringe IV 03/08/23 16:28 25 ml UD PRN Administration Hypoglycemia Protocol Protocol Docusate Sodium 100 mg 02/13/23 11:45 02/18/23 21:17 Docusate Sodium 100 Mg Cap PO 03/15/23 11:44 100 mg BID FANNIE Administration Donepezil HCl 5 mg 02/06/23 21:00 02/18/23 21:18 Donepezil Hcl 5 Mg Tab PO 03/08/23 20:59 5 mg HS FANNIE Administration Heparin Sodium (Porcine) 5,000 units 02/14/23 21:00 02/19/23 08:06 Heparin Sod 5,000 Unit/0.5 Ml Vial SQ 03/16/23 20:59 Not Given Q12 FANNIE Hydromorphone HCl 0.5 mg 02/06/23 16:29 02/19/23 08:19 Hydromorphone Inj 0.5 Mg/0.5 Ml Syr IV 02/20/23 16:28 0.5 mg Q3H PRN Administration Pain (6,7,8,9,10) Promethazine HCl 6.25 mg/ 50.25 mls @ 201 mls/hr 02/06/23 14:20 02/10/23 21:52 Sodium Chloride IV 03/08/23 14:19 Infused Q6H PRN Infusion Nausea And Vomiting Piperacillin Sod/Tazobactam 100 mls @ 25 mls/hr 02/17/23 20:00 02/19/23 12:05 Sod 4.5 gm/ Dextrose IV 02/27/23 19:59 Infused Q12H FANNIE Infusion Protocol Doxycycline Hyclate 100 mg/ 100 mls @ 50 mls/hr 02/17/23 11:30 02/19/23 02:16 Dextrose IV 03/03/23 11:29 Infused Q12H FANNIE Infusion Amino Acids 2,092 ml/ 2,092 mls @ 87.167 mls/hr 02/18/23 16:00 02/18/23 16:00 Nutrition (Parenteral) IV 02/19/23 15:59 87.2 mls/hr .Q24H FANNIE Administration Protocol Lactated Ringer's 1,000 mls @ 0 mls/hr 02/19/23 12:15 02/19/23 12:14 Lr IV 03/21/23 12:14 15 mls/hr .Q0M FANNIE Administration KVO Insulin Aspart 0 units 02/17/23 07:15 02/19/23 11:40 Insulin Aspart Per Unit Charge SC 03/19/23 07:14 4 units Q6 FANNIE Administration Protocol Insulin Glargine 10 units 02/19/23 09:00 02/19/23 08:18 Lantus Per Unit Charge SC 03/20/23 08:59 10 units DAILY FANNIE Administration Protocol Miscellaneous 1 each 02/18/23 22:00 02/18/23 22:04 Stop Clinolipid N/A 03/20/23 21:59 1 each DAILY@2200 FANNIE Administration Oxycodone/Acetaminophen 1 tab 02/10/23 09:29 02/15/23 10:25 Oxycodone/Acetaminophen 5mg/325mg Tab PO 02/24/23 09:28 1 tab Q4H PRN Administration Moderate Pain (Scale 4, 5, 6) Oxycodone/Acetaminophen 2 tab 02/10/23 09:29 02/18/23 01:16 Oxycodone/Acetaminophen 5mg/325mg Tab PO 02/24/23 09:28 2 tab Q4H PRN Administration Severe Pain (Scale 7, 8, 9,10) Quetiapine Fumarate 12.5 mg 02/06/23 21:00 02/18/23 21:18 Quetiapine Fumarate 25 Mg Tablet PO 03/08/23 20:59 12.5 mg HS FANNIE Administration Vitamin D 2,000 units 02/07/23 09:00 02/18/23 08:43 Cholecalciferol 1,000 Units 25 Mcg Tab PO 03/09/23 08:59 2,000 units QAM FANNIE Administration Vortioxetine 1 each 02/18/23 21:00 02/18/23 21:18 Vortioxetine Hydrobromide 10 Mg Tablet (Trintellix) PO 03/20/23 20:59 1 each HS FANNIE Administration NPO Date Last Intake of Fluids: 02/18/23 Time Last Intake of Fluids: 23:00 Last Intake of Fluids Comment: sip water Date Last Intake of Solids: 02/18/23 Time Last Intake of Solids: 23:00 Past Medical History Medical History Memory change Pt verbalized she has come trouble remembering things Colon cancer new dx Diabetes mellitus, type 2 IDDM TIA (transient ischemic attack) (01/2022) no residual effects>beginning of 2022>? reason for plavix Dementia Chronic low back pain Cervical spinal stenosis Lumbar facet joint syndrome Retinal vein occlusion Cervicalgia Lumbar spondylosis Anemia has been getting procrit injections every 2 weeks w/iron infusions and blood transfusion summer 2022 Urinary incontinence Osteoporosis Nontoxic multinodular goiter Mixed conductive and sensorineural hearing loss Hyperlipidemia Glaucoma Diabetic nephropathy Depression Chronic kidney disease, stage IV (severe) Past Family History Family History Brother Bone cancer Father , @AGE 64 Cardiac disorder Family history of deafness or hearing loss Hypertension Myocardial infarction, Onset Age: 64 Mother Family history of deafness or hearing loss Pancreatic cancer Aunt Breast cancer Denies family history of Family history of bleeding disorder Ovarian cancer Prostate cancer Adverse anesthesia outcome Colorectal cancer Past Surgical History Surgical History H/O right hemicolectomy (02/06/23) Open Right Hemicolectomy(Right) - Javier Mary DO History of esophagogastroduodenoscopy (EGD) Slow to wake up after anesthesia Hx of bladder repair surgery Hx of colonoscopy History of total abdominal hysterectomy SECONDARY TO PROLAPSED UTERUS History of repair of rotator cuff rt History of repair of rectocele History of cataract surgery rt/left Social History Smoking Status: Never smoker Do You Dip or Chew Tobacco: No Hx Alcohol Use: No alcohol intake frequency: other Hx Substance Use: No substance use type: does not use Physical Exam Vital Signs Last Vital Signs Temp 36.6 C 02/19/23 11:53 Pulse 80 02/19/23 11:53 Resp 20 02/19/23 11:53 BP 138/69 02/19/23 11:53 Pulse Ox 98 02/19/23 11:53 O2 Del Method Room Air 02/19/23 11:53 O2 Flow Rate 1.0 02/19/23 08:38 Testing Laboratory Results 02/19/23 06:11 02/19/23 06:11 Blood Type O Positive 02/17/23 10:28 Antibody Screen NEGATIVE 02/17/23 10:28 02/16/23 09:08 Aerobic Blood Culture - Preliminary Blood No growth in Aerobic bottle after 48 hours. Anaerobic Blood Culture - Preliminary No growth in Anaerobic bottle after 48 hours. 02/16/23 09:08 Aerobic Blood Culture - Preliminary Blood No growth in Aerobic bottle after 48 hours. Anaerobic Blood Culture - Preliminary No growth in Anaerobic bottle after 48 hours. 02/16/23 Unknown Urine Culture - Final Urine,Clean Catch Escherichia coli ESBL 02/19/23 02/19/23 11:35 05:54 POC Glucose 240 H 254 H Electrocardiogram Date: 01/29/23 Findings: + SB @ (58) and + RBBB Echocardiogram Date: 01/23/23 EF: 60-65% LV Function: normal Other Findings: + LVH (mild) Valvular Disease: + no significant valvular disease
[2023-02-19] MEDS ORDERED: HYDROmorphone INJ 1 MG/ML SYRINGE IV PRN (12:32)
[2023-02-19] MEDS ORDERED: ATROPINE SULFATE 0.1 MG/ML 10ML SYR IV PRN (12:32)
[2023-02-19] MEDS ORDERED: PROMETHAZINE HCL 6.25 MG in SODIUM CHLORIDE 0.9% 50 ML IV PRN (12:32)
[2023-02-19] MEDS ORDERED: HYDROmorphone INJ 2 MG/ML SYR/VIAL ONE (13:30)
[2023-02-19] MEDS ORDERED: ALBUMIN HUMAN 5% 12.5 GM/250 ML VIAL IV ONE (14:12)
[2023-02-19] MEDS ORDERED: SUGAMMADEX SODIUM 200 MG/2 ML VIAL IV ONE (15:13)
--- NOTE | 2023-02-19 15:29 | Post Operative Brief Note ---
PG Immediate Post Op with CF Date of Surgery February 19, 2023 Pre & Post Diagnosis Operation Date: 02/19/23 07:50 Pre-Op Diagnosis: Anastomotic leak Post-Op Diagnosis: Same, with ischemic small bowel I identified the patient and participated in the time-out.: Yes Procedure Operation Date: 02/19/23 07:50 Actual Procedures p Exploratory Laparotomy, Resection of Ileocolonic anastomosis, partial omentectomy, small bowel resection, creation of end ileostomy(Not Applicable) - Parviz Keenan DO Surgeon Parviz Keenan DO Material Reprocessing Associate lula major Estimated Blood Loss 50 Findings See Below Breakdown of the ileocolonic anastomosis with free perforation Ischemic small bowel adjacent to the perforation Specimens Specimen Description: Culture set #1 Peritoneal fluid for Aero/Dariela Culture & Gram Stain Routine Peritoneal Fluid. Specimen left room with Carolann CA at 1312. Permanent A. Omentum B. Iliocolic Anastomosis C. Small Bowel D. Portion of Ileum Drains Vera Catheter Anesthesia Type General Complications none Disposition Disposition: Recovery Room
--- NOTE | 2023-02-19 15:41 | Operative Report ---
PG Post Operative Report Pre & Post Diagnosis Operation Date: 02/19/23 07:50 Pre-Op Diagnosis: Anastomotic leak Post-Op Diagnosis: Same with ischemic small bowel I identified the patient and participated in the time-out.: Yes Procedure Operation Date: 02/19/23 07:50 Actual Procedures p Exploratory Laparotomy, Resection of Ileocolonic anastomosis, partial omentectomy, small bowel resection, creation of end ileostomy(Not Applicable) - Parviz Keenan DO Surgeon Parviz Keenan DO Insurance Special Agent lula major Estimated Blood Loss 50 Findings See Below Breakdown of the ileocolonic anastomosis with free perforation Ischemic small bowel adjacent to the perforation Specimens Omentum to pathology Ileocolonic anastomosis to pathology Small bowel to pathology Portion of ileum to pathology Drains None Anesthesia Type General Complications none Disposition Disposition: Recovery Room Indications 87-year-old female with ongoing abdominal pain, increasing leukocytosis and serum creatinine and concern for anastomotic leak after right hemicolectomy Description of Procedure The patient was brought to the OR and placed in the supine position with both arms abducted. At this time she underwent general endotracheal anesthesia without any problems. She was given appropriate pre-operative antibiotics. Her abdomen was prepped and draped in the usual sterile fashion. Timeout was called. The procedure was verified as Exploratory laparotomy, possible bowel resection, possible ostomy. Surgical, anesthesia and nursing teams agreed and the procedure was begun. The lino were removed from the old incision and this was bluntly to get to the subcutaneous tissue. This was carried down to the fascia using electrocautery. The old PDS sutures were then removed fascia was incised and the peritoneum was then entered bluntly. The incision was then opened up through its entirety. At this point there was murky fluid present in the peritoneum and this was sent for culture. At this time there were bowel to bowel adhesions that were broken up using blunt dissection. We then turned our attention to the right upper quadrant the anastomosis was. After removing a portion of the omentum with the LigaSure device. There was a portion of jejunum that was densely adhered to the perforation. This was bluntly . The anastomosis was identified and a 1 cm perforation was noted with some stool coming out. At this point we found a healthy portion of the transverse colon and the ileum distal and proximal to the anastomosis and transected this using an 80 mm blue load GABRIELLE device. The mesentery was then taken using the LigaSure device. The specimen was passed off as a ileocolonic anastomosis. The small bowel that was densely adhered to the perforation and ischemic changes in the portion of the wall appeared to be a mesenteric hematoma as well. The small area was resected using an 80 mm blue load GABRIELLE device. Again the mesentery was taken using the LigaSure device. A small bowel anastomosis was then performed using the 80 mm blue load GABRIELLE device to form the common channel on the antimesenteric side of the small bowel. Another load was then used to close the common enterotomy. The resulting mesenteric defect then closed using a 3-0 running Vicryl. At this point the wound was then irrigated until clear. Hemostasis was achieved using electrocautery. Hemostasis was complete. A small portion of the distal ileum was resected in order to have less tension on her ileostomy. In the right abdomen an incision was made for the ostomy and carried down the fascia using [employer] retractors. A cruciate incision in the anterior fascia was made using electrocautery and the muscle with a [place] clamp. The posterior fascia was then incised in a cruciate fashion. [place] clamp was placed through the incision and grasped the end of the ileum and brought up through the stoma. The abdomen was then washed out with multiple liters of warm saline. The fascia was then closed in a running fashion using 2 #1 looped PDS suture starting superiorly and inferiorly and meeting in the middle. Skin was left open with a wet-to-dry Curlex dressing. Sterile dressing was applied. At this point we turned our attention to maturing the ostomy that was done in a Madhuri fashion using 3-0 Vicryl suture. All needle and sponge counts were correct x 2. At this point the patient was awakened from anesthesia, and transported to PACU in stable condition. The physician's virtual assistant was present and scrubbed for the entirety of the case. He was critical in positioning the patient, prepping and draping, retraction and exposure, closure of the incision and placement of the dressings. I attest to the content of the Intraoperative Record and any orders documented therein. Any exceptions are noted below.
[2023-02-19] MEDS ORDERED: CLINOLIPID 20% IV FAT EMULSION 250 ML IV SCH (16:00)
[2023-02-19] MEDS ORDERED: PERIPHERAL TPN IV SCH (16:00)
[2023-02-19] MEDS ORDERED: [UNRECOGNIZED DRUG - OTHER] IV SCH (16:00)
--- NOTE | 2023-02-19 16:20 | Anesthesiology Progress Note ---
Date of Service February 19, 2023 Anesthesia Post Procedure Vital Signs Vital Signs: Temp Pulse Pulse Pulse Pulse Resp BP 02/19/23 16:10 36.2 C L 81 18 02/19/23 16:00 79 19 02/19/23 15:50 80 18 02/19/23 15:41 36.0 C L 84 20 02/19/23 11:53 36.6 C 80 20 02/19/23 08:38 36.6 C 82 20 02/19/23 08:00 02/19/23 04:00 36.4 C L 84 20 133/81 02/18/23 23:31 36.4 C L 84 20 02/18/23 23:00 79 02/18/23 21:00 02/18/23 19:39 36.8 C 79 18 02/18/23 17:42 36.4 C L BP Pulse Ox O2 Del Method O2 Flow Rate 02/19/23 16:10 159/71 H 99 Nasal Cannula 2 02/19/23 16:00 166/68 H 96 Oxymask 5 02/19/23 15:50 168/67 H 97 Oxymask 5 02/19/23 15:41 176/75 H 98 Oxymask 5 02/19/23 11:53 138/69 98 Room Air 02/19/23 08:38 133/72 98 Nasal Cannula 1.0 02/19/23 08:00 Nasal Cannula 1 02/19/23 04:00 98 Nasal Cannula 2 02/18/23 23:31 129/74 96 Nasal Cannula 2 02/18/23 23:00 02/18/23 21:00 Nasal Cannula 2 02/18/23 19:39 123/63 99 Nasal Cannula 2 02/18/23 17:42 Pain Intensity Abdomen: Pain Intensity: 0 Transfer of Care Handoff Completed per policy Notes Mental Status: alert / awake / arousable and participated in evaluation Patient Amnestic to Procedure: Yes Nausea / Vomiting: adequately controlled Pain: adequately controlled Airway Patency, RR, SpO2: stable & adequate BP & HR: stable & adequate Hydration State: stable & adequate Anesthetic Complications: no major complications apparent and Pt Satisfied with anesthetic care
[2023-02-19] MEDS: MAGNESIUM SULFATE / D5W 1 GM/100 ML BAG IV SCH ×3 (16:50→18:34)
[2023-02-19] MEDS: CHOLECALCIFEROL 1,000 UNITS 25 MCG TAB PO SCH (16:51)
[2023-02-19] MEDS: ASCORBIC ACID 500 MG TAB PO SCH (16:51)
--- NOTE | 2023-02-19 17:27 | Billing Data ---
Date of Service February 19, 2023 Coding Level of Care Code 23461 SUB INP/OBS CARE MIN
[2023-02-19] MEDS: ACETAMINOPHEN 1,000 MG/100 ML VIAL IV SCH (18:04)
[2023-02-19 18:53] LABS: Appearance Urine Turbid (Clear); Bacteria Urine Automated Negative (Negative); Bilirubin Urine Negative (Negative); Blood Urine 1+ (Negative); Color Urine Dark Yellow; Epithelial Cell Urine Auto >30 /lpf (0-5); Glucose Urine UA Negative (Negative); Ketones Urine Negative (Negative); Leukocyte Esterase Urine Negative (Negative); Nitrite Urine Negative (Negative); Protein Urine 2+ (Negative); Specific Gravity Urine 1.019 (1.000-1.030); Urobilinogen Urine Negative (Negative); WBC Urine Automated >30 /hpf (0-5)
[2023-02-19 19:16] LABS: Creatinine Urine Random 57.8 mg/dl
[2023-02-19] MEDS: DOCUSATE SODIUM 100 MG CAP PO SCH (19:41)
[2023-02-19] MEDS: DONEPEZIL HCL 5 MG TAB PO SCH (21:03)
[2023-02-19] MEDS: QUEtiapine FUMARATE 25 MG TABLET PO SCH (21:04)
[2023-02-19] MEDS: VORTIOXETINE HYDROBROMIDE 10 MG PO SCH (21:05)
[2023-02-19] MEDS: STOP CLINOLIPID SCH (22:20)
[2023-02-20] MEDS: INSULIN ASPART PER UNIT CHARGE SC SCH ×6 (00:55→20:03)
[2023-02-20] MEDS: DOXYCYCLINE HYCLATE 100 MG in DEXTROSE 5% MINI-B 100 ML IV SCH ×2 (01:16→13:08)
[2023-02-20] MEDS: ACETAMINOPHEN 1,000 MG/100 ML VIAL IV SCH ×3 (02:24→18:39)
--- NOTE | 2023-02-20 06:49 | Hospitalist Progress Note ---
Date of Service February 20, 2023 Assessment & Plan (1) Elevated blood pressure reading: Plan: Pt is an 87 y/o female with PMH of DM, colon cancer, TIA (2021), dementia, chronic low back pain, CKD, and HLD presenting to the hospital for right hemicolectomy. Surgery was performed 02/06/2023 and reexploration was done 02/19 that was consistent with ischemic bowel. #Febrile State #Probable bowel leak Patient with intermittent fevers and productive cough. Tmax 39.4C. Procal 1.92 CRP 23.61. Patient with clinical deterioration 02/16. Repeat CXR without obvious consolidation. Re-demonstrated pneumoperitoneum. Started on ceftriaxone for empiric abx. CT A&P consistent with prior leak, no obvious perforation. Abx adjusted as below. Blood cultures NGTD. Surgery recommend repeat trip to the OR. Will need to closely monitor clinical course as she could easily clinically deteriorate at this point. Antibiotics: Ceftriaxone started 02/16 Switched to Zosyn 02/17 Added doxycycline 02/17 for empiric anaplasmosis coverage #ARCELIA on CKD IV #ATN Baseline Cr ~ 1.6-1.7. Has had a significant bump in creatinine. Likely intrinsic kidney injury most likely acute tubular necrosis as FeNa 1.7%. No current indications for renal replacement therapy. Will consult nephrology - appreciate recs. Continue to monitor. 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 Continue with doxycycline x 10 days. Elevated BP Asymptomatic elevated blood pressure persistently in postoperative period. While likely reactive to recent surgery and pain, given pt's age and comorbidities she likely has underlying hypertension. With patient's history of CKD IV she is now on 5 mg amlodipine. Would err on the side of caution as to avoid hypotension and falls in this elderly patient. Holding amlodipine as patient with tenuous clinical status and recent soft BPs. Holding amlodipine Dementia Patient on Seroquel 12.5 mg and donepezil 5 mg QHS. Continue while inpatient Insulin Dependent Diabetes Mellitus SSI while hospitalized. Resume home dosing on discharge Depression Continue home vortioxetine OAB Continue home oxybutynin HLD Continue statin therapy Diet: NPO, sips and chips okay, started on PPN - monitor fluid status DVT ppx: heparin BID Code: full Dispo: PCU/Tele, will need rehab, has bed at [facility] Updated: 02/20 at bedside (2) Chronic kidney disease, stage IV (severe): Admission and Anticipated Discharge Date Admission Date: February 06, 2023 Supervising Physician Co-Signing Physician Notes I personally examined the patient and verified all kinsey points of history and exam, discussed case, and agree with decision making with Dr Edwards feeling lousy. pain (+). discussed ARF w pt and fmaily in depth. Vitals noted, in general she is Fatigued and groggy but no distress. HEENT normocephalic atraumatic mucous membranes moist. cardio is regular without rubs murmurs gallops lungs are clear to auscultation bilaterally no rales rhonchi or wheeze with good effort. Skin shows no rashes no pallor or icterus. Neuro without focal deficits. Sepsis abdominal sourcenow postop again, appreciate surgical assistance. Continue broad antibiotics and supportive care. Acute renal failure is almost certainly ATNmaintaining perfusion, following electrolytes, no indications for dialysis at this time. increase pain control. Interestingly her CBC prompted a peripheral smear that shows inclusion bodies consistent with anaplasmosiswe are certainly in a very endemic area, but at the same time the patient has been in the hospital for 10 days. Given how common it is around here and given that she does have a vague but predominantly constitutional sepsis syndrome, definitely obligated to treat and have added doxycyclineBut to be clear her sepsis was from an abdominal source DVT proph - heparin SQ Subjective Patient continues to have pain. Less alert this morning. Urine output continues to be low. Review of Systems 2 Review of Systems: As per HPI Physical Exam 2 Physical Exam: Gen: thin appearing elderly female HEENT: AT NC MMM CV: RRR no m/r/g clinically well perfused Resp: CTAB no wheezing no increased work of breathing Abd: soft, diffusely tender MSK: no obvious deformities Psych: appropriate mood and affect Neuro: alert and oriented Skin: no rashes or bruising noted Results & Data Results & Data Vital Signs (Past 12 Hours) Vital Signs Temp Pulse Pulse Pulse Resp BP BP 02/20/23 03:33 36.5 C 84 19 157/80 H 02/19/23 23:00 36.5 C 77 18 156/76 H 02/19/23 22:00 86 02/19/23 22:00 82 24 157/77 H 02/19/23 21:05 02/19/23 21:00 94 H 16 156/73 H 02/19/23 19:54 36.5 C 78 15 162/85 H 02/19/23 19:00 77 17 170/79 H Pulse Ox O2 Del Method O2 Flow Rate 02/20/23 03:33 97 Nasal Cannula 2 02/19/23 23:00 98 Nasal Cannula 2 02/19/23 22:00 02/19/23 22:00 Nasal Cannula 2 02/19/23 21:05 Nasal Cannula 2 02/19/23 21:00 94 Nasal Cannula 2 02/19/23 19:54 99 Nasal Cannula 2 02/19/23 19:00 98 Nasal Cannula 2 Laboratory Results 02/20/23 06:19 02/20/23 06:19 Resident Activity Tracking Resident Involvement: Resident Care Provided Care Provided: Adult Hospital Medicine
[2023-02-20 07:31] LABS: Basophils # (auto) 0.01 K/uL (0.00-0.20); Basophils % (auto) 0.1 %; Eosinophils # (auto) 0.02 K/uL (0.00-0.50); Eosinophils % (auto) 0.2 %; Hematocrit (blood only) 26.8 % (37.0-47.0); Hemoglobin 8.5 g/dl (12.0-16.0); Immature Granulocytes # (auto) 0.39 K/uL (0.01-0.20); Lymphocytes # (auto) 0.74 K/uL (1.20-3.40); Lymphocytes % (auto) 5.7 %; Mean Corpuscular Hemoglobin 26.4 pg (25.0-34.0); Mean Corpuscular Hgb Conc 31.7 g/dL (32.0-36.0); Mean Corpuscular Volume 83.2 fL (80.0-100.0); Mean Platelet Volume 12.1 fL (9.4-12.4); Monocytes # (auto) 0.24 K/uL (0.11-0.59); Monocytes % (auto) 1.9 %; Neutrophils # (auto) 11.57 K/uL (1.40-6.50); Neutrophils % (auto) 89.1 %; Platelet Count 195 K/uL (130-400); RDW Standard Deviation 54.6 fL (36.4-46.3); Red Blood Count 3.22 M/uL (4.20-5.40); White Blood Count 12.97 K/ul (4.8-10.8)
[2023-02-20 07:46] LABS: BUN Creatinine Ratio 20.4 (10-20); Calcium 8.9 mg/dl (8.6-10.3); Creatinine Clr Calc Pharmacy 12.9 ml/min; Est GFR (African American) 15.2 ml/min; Est GFR (Non-African American) 13.1 ml/min; Magnesium 1.9 mg/dl (1.7-2.4); Phosphorus 2.7 mg/dl (2.5-4.9); Potassium 4.2 mmol/L (3.5-5.1)
[2023-02-20] MEDS: LANTUS PER UNIT CHARGE SC SCH (09:02)
[2023-02-20] MEDS: PIPERACILLIN/TAZOBACTAM 4.5 GM in DEXTROSE 5% MINI-B 100 ML IV SCH ×2 (09:03→20:18)
[2023-02-20] MEDS: ASCORBIC ACID 500 MG TAB PO SCH (09:21)
[2023-02-20] MEDS: CHOLECALCIFEROL 1,000 UNITS 25 MCG TAB PO SCH (09:21)
--- NOTE | 2023-02-20 10:59 | Surgery Progress Note ---
Date of Service February 20, 2023 Assessment & Plan (1) Anastomotic leak of intestine: Plan: She is doing well after surgery, labs stable except for her Cr which continues to rise Nephro consult today BID dressing changes wet to dry dressing changes with Kerlix Keep NPO except for sips with meds Admission and Anticipated Discharge Date Admission Date: February 06, 2023 Subjective Patient seen and examined. Pain controlled. No acute events overnight. No N/V. Has had low UOP overnight. Physical Exam Constitutional: WD/WN, vitals as above Gastrointestinal (Abdomen): Ostomy pink with some small amount of output Abdominal dressing, c/d/i Results & Data Vital Signs (Past 12 Hours) Vital Signs Temp Pulse Pulse Pulse Resp BP Pulse Ox 02/20/23 08:00 87 02/20/23 08:00 02/20/23 08:00 76 20 166/87 H 100 02/20/23 07:30 36.4 C L 80 18 167/83 H 98 02/20/23 03:33 36.5 C 84 19 157/80 H 97 02/19/23 23:00 36.5 C 77 18 156/76 H 98 O2 Del Method O2 Flow Rate 02/20/23 08:00 02/20/23 08:00 Nasal Cannula 2 02/20/23 08:00 Nasal Cannula 2 02/20/23 07:30 Nasal Cannula 2 02/20/23 03:33 Nasal Cannula 2 02/19/23 23:00 Nasal Cannula 2 PG Care Time/CCT Total # of Minutes Spent Total Time Spent with Patient: Total time spent is greater than 50% in coordination of care (as documented) at patient's floor/unit and/or counseling patient: Coding Level of Care Code 32067 Post Operative Follow-Up Diagnoses Anastomotic leak of intestine K91.89
[2023-02-20] MEDS ORDERED: Nursing to Pharmacy Communication SCH (11:30)
--- NOTE | 2023-02-20 11:58 | Pharmacy Report ---
PHA: Parenteral Nutrition Con - Date of Service February 20, 2023 - Scope Pharmacy was consulted on 02/18 to manage parenteral nutrition orders for this patient. - Subjective The patient is currently on day 3 of peripheral parenteral nutrition for prolonged NPO status/s/p small bowel resection . - Objective Height: 5 ft 4.5 in Weight: 75.7 kg Diet: NPO Intake & Output (24hrs):: Intake & Output 02/18/23 02/19/23 02/20/23 02/21/23 06:59 06:59 06:59 06:59 Intake Total 3100.000 / 3100.000 2173.333 / 2173.333 3780.667 / 3780.667 100 / 100 Output Total 301 / 301 150 / 150 375 / 375 Balance 2799.000 / 2799.000 2022.333 / 2022.333 3405.667 / 3405.667 100 / 100 Weight 71 kg 75.7 kg Laboratory Data (Last 24 Hr):: 02/20/23 06:19 Sodium 131 L Potassium 4.2 Chloride 101 Carbon Dioxide 20 L BUN 62 H Creatinine 3.04 H D Glucose 211 H Calcium 8.9 Phosphorus 2.7 Magnesium 1.9 Triglycerides 458 H Nutrition Assessment:: Please refer to the Notes section of the EMR for the most recent advisory application developer note. - Assessment Patient +3.4L previous day with decreasing output. Patient overall very positive fluid balance for admission. Patient's BUN/SCr continue to rise today,nephrology to be consulted. TG 458. Na 131. Discussed concerns with continuing peripheral parenteral nutrition with hospitalist and advisory application developer given onset of BUN/SCr increase/fluid status/continued hyperglycemia. Per hospitalist will write for today but may be held pending further discussion, possible central line placement. Will reduce aa/dextrose content today to see if better tolerated, increase insulin in bag. Lipids held for TG >400. F: PPN @69 m/hr E: Na 131; Co2 20 N: TG 458, BSGs elevated- used 16 units of correctional yesterday- increased bag dose to 15 units- changed checks to q4H - Plan For day 3 of PN administration, the following will be ordered: Macronutrients Amino acids 51 grams/day Dextrose 60 grams/day Micronutrients Sodium phosphate 15 MMol Sodium chloride 70 mEq Sodium acetate 70 mEq Potassium acetate 10 mEq Magnesium sulfate 4.09 mEq Multivitamins 10 mL Trace Elements 1 mL Additional additives: Regular Insulin 15 units; Thiamine 100 mg Total volume 1286.15 mL to be infused over 24 hrs will provide 408 kcal/day Final osmolarity 896 mOsm/L (maximum for PPN is 900 mOsm/L) Labs, as indicated, will be ordered per protocol Pharmacy will continue to follow and adjust parenteral nutrition orders on a daily basis. Thank you for allowing us to participate in the care of this patient.
[2023-02-20] MEDS ORDERED: PERIPHERAL TPN IV SCH (16:00)
[2023-02-20] MEDS ORDERED: [UNRECOGNIZED DRUG - OTHER] IV SCH (16:00)
--- NOTE | 2023-02-20 16:05 | Nephrology Consultation ---
Date of Consultation February 20, 2023 Assessment & Plan (1) Acute kidney injury: * Oliguric ARCELIA, suspect ATN related to IV contrast, infection/anastomotic leak * Volume status and electrolyte balance are currently acceptable. No acute indication for SPRING COVERER at this time * Keep Vera catheter in place * Limit IVF * Monitor PRP, UO (2) Chronic kidney disease, stage III (moderate): * Baseline Cr 1.1-1.3 (3) H/O right hemicolectomy: * Adenocarcinoma of colon s/p open R hemicolectomy 02/06. Post-op course complicated by anastomotic leak/perforation requiring resection of the anastomosis and creation of an end ileostomy 02/19/23 History of Present Illness Reason for Consultation: ARCELIA Attending Physician: Javier Mary DO History of Present Illness Mrs. Hull is an 87 year old white female who is seen at the request of [facility] Hospitalist Service for evaluation of ARCELIA. Information for the HPI is obtained from direct patient interview and review of the EMR. HPI is summarized as follows: Mrs. Hull has CKD stage G3b (moderate impairment). Baseline Cr has been 1.1-1.3 w/ EGFR 35 cc/min. She has not undergone Nephrology evaluation in the past. Mrs. Hull's medical history is significant for AODM, hyperlipidemia, osteoporosis and prior h/o TIA. Recently Mrs. Hull was found to be anemic. Evaluation revealed adenocarcinoma of the colon. She underwent R open hemicolectomy 02/06/23. Post-op Mrs. Hull developed hypertension. She was initially treated w/ Losartan but later changed to Amlodipine. On post-op day #10 Mrs. Hull developed a febrile illness. Abdominal CT w/ IV contrast was negative for obstruction or anastomotic leak. Despite broad spectrum antibiotics Mrs. Hull remained febrile. 02/19/23 CXR revealed pneumoperitoneum. Exploratory laparotomy revealed an anastomotic leak/perforation. Patient required resection of the anastomosis w/ creation of an end ileostomy. Mrs. Hull is now recovering in the ICU. She is on PPN therapy. She is oliguric and Cr has risen to 3.0. Allergies Allergy/AdvReac Type Severity Reaction Status Date / Time adhesive tape AdvReac Mild SKIN Verified 02/06/23 10:46 IRRITATION bandaids AdvReac Mild SKIN Uncoded 02/06/23 10:46 IRRITATION Home Medications Medication Instructions Recorded Confirmed Type donepezil 5 mg tablet (Aricept) 5 mg PO HS 10/19/18 02/06/23 History latanoprost 0.005 % eye drops 1 drp OPB HS 10/19/18 02/06/23 History quetiapine 25 mg tablet (Seroquel) 12.5 mg PO HS 10/19/18 02/06/23 History blood-glucose meter #1 ea 09/14/20 01/29/23 History acetaminophen 500 mg capsule 1,000 mg PO BID PRN Pain 11/08/21 02/06/23 History Wheeled Walker #1 ea 03/28/22 01/28/23 Rx ascorbic acid (vitamin C) 500 mg 500 mg PO QAM 05/29/22 02/06/23 History capsule vortioxetine 10 mg tablet 10 mg PO HS 05/29/22 02/06/23 History (Trintellix) omega-3 acid ethyl esters 1 gram 1 cap PO BID 08/08/22 02/06/23 History capsule BD Ultra-Fine Sheri Pen Needle 32 #100 ea 09/01/22 01/29/23 Rx gauge x 5/32" (pen needle, diabetic) ferrous sulfate 325 mg (65 mg 325 mg PO Q2D 10/03/22 02/06/23 History iron) tablet meclizine 25 mg tablet 25 mg PO TID PRN dizziness or 10/03/22 02/06/23 Rx vertigo #10 tabs oxybutynin chloride 10 mg 10 mg PO QAM #90 tabs 10/20/22 02/06/23 Rx tablet,extended release 24 hr cholecalciferol (vitamin D3) 50 50 mcg PO QAM 11/27/22 02/06/23 History mcg (2,000 unit) capsule calcium 600 mg capsule 600 mg PO QAM 01/06/23 02/06/23 History vit C 250 mg-vit E 90 mg-zinc 40 1 tab PO QPM 01/06/23 02/06/23 History mg-copper 1 [id number] capsule (PreserVision AREDS-2) rosuvastatin 10 mg tablet 10 mg PO QAM 01/29/23 02/06/23 History aspirin 81 mg tablet 81 mg PO DAILY 02/06/23 02/06/23 History clopidogrel 75 mg tablet (Plavix) 75 mg PO QAM 02/06/23 02/06/23 History darbepoetin bao in polysorbat 60 60 mcg subcut .q2wks 02/06/23 02/06/23 History mcg/mL in polysorbate injection (Aranesp) insulin glargine 100 unit/mL (3 18 unit (0.18 mL) subcut QPM #30 mL 02/13/23 Rx mL) subcutaneous pen (Lantus Solostar U-100 Insulin) Patient History Medical History Memory change Pt verbalized she has come trouble remembering things Colon cancer new dx Diabetes mellitus, type 2 IDDM TIA (transient ischemic attack) (01/2022) no residual effects>beginning of 2022>? reason for plavix Dementia Chronic low back pain Cervical spinal stenosis Lumbar facet joint syndrome Retinal vein occlusion Cervicalgia Lumbar spondylosis Anemia has been getting procrit injections every 2 weeks w/iron infusions and blood transfusion summer 2022 Urinary incontinence Osteoporosis Nontoxic multinodular goiter Mixed conductive and sensorineural hearing loss Hyperlipidemia Glaucoma Diabetic nephropathy Depression Chronic kidney disease, stage IV (severe) Surgical History H/O right hemicolectomy (02/06/23) Open Right Hemicolectomy(Right) - Javier Mary, DO History of esophagogastroduodenoscopy (EGD) Slow to wake up after anesthesia Hx of bladder repair surgery Hx of colonoscopy History of total abdominal hysterectomy SECONDARY TO PROLAPSED UTERUS History of repair of rotator cuff rt History of repair of rectocele History of cataract surgery rt/left Family History Brother Bone cancer Father , @AGE 64 Cardiac disorder Family history of deafness or hearing loss Hypertension Myocardial infarction, Onset Age: 64 Mother Family history of deafness or hearing loss Pancreatic cancer Aunt Breast cancer Denies family history of Family history of bleeding disorder Ovarian cancer Prostate cancer Adverse anesthesia outcome Colorectal cancer Social History Smoking Status: Never smoker Second Hand Exposure: Yes (in the past); Do You Dip or Chew Tobacco: No; Hx Alcohol Use: No Hx Substance Use: No Preferred Language: Malay Communication Ability: Effective Communication Ability Comment: STATES THAT SHE HAS LOSS OF HEARING Visual Impairment: No Limitations Hearing Ability: Hard of Hearing Sorority Mother Required: No Beliefs That Will Affect Care: None marital status: marital status details: HAS FOUR CHILDREN Current Living Situation: Spouse Current Living Situation Comment: lives w/ spouse and grandson (age 25) current occupational status: 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[employer]; 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 How many Children do You have: 4 Feels Safe at Home: Yes Safety Concerns: Feels Safe At This Time Childhood Exposure to Second-Hand Smoke: Yes Diet: regular caffeine: No during the past year weight has: remained stable Dental Care, Regularly: Yes Physical Activity Frequency: Other Physical Activity Frequency Comment: LIMITED BY PHYSICAL CONDITION Seatbelt Use: always Sunscreen Use: No Assistive Devices: Stair Lift and Walker Review of Systems Constitutional: no fever Eyes: no problem reported Ear, Nose, Mouth, Throat: no problem reported Respiratory: no cough and no dyspnea Cardiovascular: no chest pain Gastrointestinal: no vomiting Physical Exam Constitutional: + frail appearing Eyes: PERRL, conjunctivae normal, anicteric sclerae ENMT: external ear and nose normal, oropharynx normal Neck: trachea midline, no thyromegaly Respiratory: normal respiratory effort, lungs clear to auscultation Cardiovascular: RRR, no murmur, no edema Gastrointestinal (Abdomen): Inspection/Auscultation: + hypoactive bowel sounds ostomy in place Skin: no rashes, warm and dry Neurologic: Speech / Cognition: normal speech and normal cognition Results & Data Vital Signs (Past 12 Hours) Vital Signs Temp Pulse Pulse Pulse Resp BP BP 02/20/23 14:49 70 02/20/23 12:19 36.5 C 71 17 145/64 H 02/20/23 12:00 36.6 C 72 20 138/89 02/20/23 08:00 87 02/20/23 08:00 02/20/23 08:00 76 20 166/87 H 02/20/23 07:30 36.4 C L 80 18 167/83 H Pulse Ox O2 Del Method O2 Flow Rate 02/20/23 14:49 02/20/23 12:19 100 Nasal Cannula 1 02/20/23 12:00 100 Nasal Cannula 1 02/20/23 08:00 02/20/23 08:00 Nasal Cannula 2 02/20/23 08:00 100 Nasal Cannula 2 02/20/23 07:30 98 Nasal Cannula 2 Laboratory Results Laboratory Tests 02/15/23 02/16/23 02/17/23 09:50 06:50 07:27 WBC Hgb Hct Plt Count Sodium Potassium Chloride Carbon Dioxide BUN Creatinine 1.18 1.32 H Glucose Urine Color Urine Appearance Urine pH Ur Specific [place] Urine Protein Urine Blood Urine WBC (Auto) Urine RBC (Auto) Urine Bacteria (Auto) A. phagocytophilum DNA Positive A 02/17/23 02/18/23 02/19/23 16:59 06:49 06:11 WBC Hgb Hct Plt Count Sodium Potassium Chloride Carbon Dioxide BUN Creatinine 1.44 H 1.81 H D 2.58 H D Glucose Urine Color Urine Appearance Urine pH Ur Specific [place] Urine Protein Urine Blood Urine WBC (Auto) Urine RBC (Auto) Urine Bacteria (Auto) A. phagocytophilum DNA 02/19/23 02/20/23 02/20/23 18:30 06:19 06:19 WBC 12.97 H Hgb 8.5 L Hct 26.8 L Plt Count 195 Sodium 131 L Potassium 4.2 Chloride 101 Carbon Dioxide 20 L BUN 62 H Creatinine Glucose Urine Color Dark Yellow Urine Appearance Turbid A Urine pH 5.0 Ur Specific [place] 1.019 Urine Protein 2+ H Urine Blood 1+ H Urine WBC (Auto) >30 H Urine RBC (Auto) 5-10 H Urine Bacteria (Auto) Negative A. phagocytophilum DNA 02/20/23 06:19 WBC Hgb Hct Plt Count Sodium Potassium Chloride Carbon Dioxide BUN Creatinine 3.04 H D Glucose 211 H Urine Color Urine Appearance Urine pH Ur Specific [place] Urine Protein Urine Blood Urine WBC (Auto) Urine RBC (Auto) Urine Bacteria (Auto) A. phagocytophilum DNA PG Care Time/CCT Total # of Minutes Spent Total Time Spent with Patient: Total time spent is greater than 50% in coordination of care (as documented) at patient's floor/unit and/or counseling patient: Coding Level of Care Code 97534 IN/OBS CONSULT LVL 5,80M Diagnoses Acute kidney injury N17.9 Chronic kidney disease, stage III (moderate) N18.30 H/O right hemicolectomy Z90.49
[2023-02-20] MEDS ORDERED: ALTEPLASE, RECOMBINANT 1 MG/ML 2ML VIAL IV PRN (16:06)
[2023-02-20] MEDS: oxyCODONE/ACETAMINOPHEN 5mg/325mg TAB PO PRN (17:04)
[2023-02-20] MEDS ORDERED: HYDROmorphone INJ 0.5 MG/0.5 ML SYR IV STA (17:36)
[2023-02-20] MEDS ORDERED: HYDROmorphone INJ 1 MG/ML SYRINGE IV PRN (18:16)
--- NOTE | 2023-02-20 18:52 | Billing Data ---
Date of Service February 20, 2023 Coding Level of Care Code 04197 SUB INP/OBS CARE MIN
[2023-02-20] MEDS ORDERED: METOPROLOL TARTRATE 1 MG/ML VIAL IV STA ×2 (19:02→22:27)
[2023-02-20] MEDS ORDERED: METOPROLOL TARTRATE 1 MG/ML VIAL IV ONE (19:05)
[2023-02-20] MEDS: STOP CLINOLIPID SCH (21:23)
[2023-02-20] MEDS: QUEtiapine FUMARATE 25 MG TABLET PO SCH (21:25)
[2023-02-20] MEDS: DONEPEZIL HCL 5 MG TAB PO SCH (21:25)
[2023-02-20] MEDS: VORTIOXETINE HYDROBROMIDE 10 MG PO SCH (21:26)
[2023-02-20] MEDS: HYDROmorphone INJ 0.5 MG/0.5 ML SYR IV PRN (23:46)
[2023-02-21] MEDS: INSULIN ASPART PER UNIT CHARGE SC SCH ×6 (00:15→21:42)
[2023-02-21] MEDS: DOXYCYCLINE HYCLATE 100 MG in DEXTROSE 5% MINI-B 100 ML IV SCH ×2 (01:13→14:26)
[2023-02-21] MEDS: ACETAMINOPHEN 1,000 MG/100 ML VIAL IV SCH ×3 (02:10→17:31)
--- NOTE | 2023-02-21 06:56 | Hospitalist Progress Note ---
Date of Service February 21, 2023 Assessment & Plan (1) Elevated blood pressure reading: Plan: Pt is an 87 y/o female with PMH of DM, colon cancer, TIA (2021), dementia, chronic low back pain, CKD, and HLD presenting to the hospital for right hemicolectomy. Surgery was performed 02/06/2023 and reexploration was done 02/19 that was consistent with ischemic bowel. #Febrile State #Probable bowel leak Patient with intermittent fevers and productive cough. Tmax 39.4C. Procal 1.92 CRP 23.61. Patient with clinical deterioration 02/16. Repeat CXR without obvious consolidation. Re-demonstrated pneumoperitoneum. Started on ceftriaxone for empiric abx. CT A&P consistent with prior leak, no obvious perforation. Abx adjusted as below. Blood cultures NGTD. Repeat trip to the OR with ischemic bowel and resection with ileostomy creation. Will need to closely monitor clinical course as she could easily clinically deteriorate at this point. Antibiotics: Ceftriaxone started 02/16 Switched to Zosyn 02/17 Added doxycycline 02/17 for empiric anaplasmosis coverage #A fib with RVR Patient without a history of atrial fibrillation. 02/20 developed a fib with RVR. Converted to NSR with Lopressor 5 mg x 2. Likely in the setting of + fluid status and severe illness. Continue to monitor. Lopressor for HR > 120 if BP can tolerate. Heparin SQ BID for VTE ppx. #Parental Nutrition Pharmacy/Dietary on board. Plan for central line to minimize amount of fluid needed for nutritional support. #ARCELIA on CKD IV #ATN Baseline Cr ~ 1.6-1.7. Has had a significant bump in creatinine, creatinine continues to climb. Likely intrinsic kidney injury most likely acute tubular necrosis as FeNa 1.7%. No current indications for renal replacement therapy. Will consult nephrology - appreciate recs. Continue to monitor. 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 Continue with doxycycline x 10 days. Elevated BP Asymptomatic elevated blood pressure persistently in postoperative period. While likely reactive to recent surgery and pain, given pt's age and comorbidities she likely has underlying hypertension. With patient's history of CKD IV she is now on 5 mg amlodipine. Would err on the side of caution as to avoid hypotension and falls in this elderly patient. Holding amlodipine as patient with tenuous clinical status and recent soft BPs. Holding amlodipine Dementia Patient on Seroquel 12.5 mg and donepezil 5 mg QHS. Continue while inpatient Insulin Dependent Diabetes Mellitus SSI while hospitalized. Resume home dosing on discharge Depression Continue home vortioxetine OAB Continue home oxybutynin HLD Continue statin therapy Diet: NPO, sips and chips okay, started on PPN - monitor fluid status DVT ppx: heparin BID Code: full Dispo: PCU/Tele, will need rehab, has bed at [facility] Family Updated: 02/20 at bedside (2) Chronic kidney disease, stage IV (severe): (3) Anastomotic leak of intestine: (4) Atrial fibrillation with rapid ventricular response: (5) On parenteral nutrition: Admission and Anticipated Discharge Date Admission Date: February 06, 2023 Supervising Physician Co-Signing Physician Notes I personally examined the patient and verified all kinsey points of history and exam, discussed case, and agree with decision making with Dr Edwards complaining of some abdominal pain whenever I see her, the rest of her history is somewhat difficult to ascertain as she is a bit more delirious.. Vitals noted, in general she is fatigued and groggy Appears mildly uncomfortable with abdominal pain. HEENT normocephalic atraumatic mucous membranes moist. cardio is regular , breathing unlabored no accessory muscle use good effort. Skin shows no rashes no pallor or icterus. Neuro without focal deficits noted. Sepsis abdominal sourcenow postop again, appreciate surgical assistance. Continue broad antibiotics and supportive care. Acute renal failure is almost certainly ATNmaintaining perfusion, following electrolytes, no indications for dialysis at this time. her oliguria is concerning, and given that she is third spacing some, but her breathing is stable, we will cautiously hold her PPN for now just to minimize fluid volume and reduce the risk of pulmonary edema. Depending on how her intestines/peristalsis/bowel function improves, may need central line for TPN, but this also will come and play with her volume status acutely. Interestingly her CBC prompted a peripheral smear that shows inclusion bodies consistent with anaplasmosiswe are certainly in a very endemic area, but at the same time the patient has been in the hospital for 10 days. Given how common it is around here and given that she does have a vague but predominantly constitutional sepsis syndrome, definitely obligated to treat and have added doxycyclineBut to be clear her sepsis was from an abdominal source DVT proph - heparin SQ Subjective Patient continues to have pain. Urine output continues to be low. Review of Systems 2 Review of Systems: As per HPI Physical Exam 2 Physical Exam: Gen: thin appearing elderly female HEENT: AT NC MMM CV: RRR no m/r/g clinically well perfused Resp: CTAB no wheezing no increased work of breathing Abd: soft, diffusely tender MSK: no obvious deformities Psych: appropriate mood and affect Neuro: alert and oriented Skin: no rashes or bruising noted Results & Data Results & Data Vital Signs (Past 12 Hours) Vital Signs Temp Pulse Pulse Pulse Resp BP BP 02/21/23 04:19 36.5 C 75 14 161/81 H 02/20/23 22:55 36.8 C 65 13 02/20/23 22:54 68 122/69 02/20/23 22:37 124 H 149/81 H 02/20/23 22:00 74 02/20/23 19:52 36.5 C 68 18 133/79 02/20/23 19:30 02/20/23 19:21 110 H 118/75 02/20/23 19:09 145 H 108/84 Pulse Ox O2 Del Method O2 Flow Rate 02/21/23 04:19 Nasal Cannula 1 02/20/23 22:55 99 Nasal Cannula 1 02/20/23 22:54 02/20/23 22:37 02/20/23 22:00 02/20/23 19:52 99 Nasal Cannula 0.5 02/20/23 19:30 Nasal Cannula 1 02/20/23 19:21 02/20/23 19:09 Laboratory Results 02/21/23 07:15 02/21/23 07:15 Resident Activity Tracking Resident Involvement: Resident Care Provided Care Provided: Adult Hospital Medicine
[2023-02-21 07:47] LABS: Appearance Urine Cloudy (Clear); Bilirubin Urine Negative (Negative); Blood Urine Trace (Negative); Color Urine Yellow; Epithelial Cell Urine Auto >30 /lpf (0-5); Glucose Urine UA Negative (Negative); Ketones Urine Negative (Negative); Leukocyte Esterase Urine Trace (Negative); Nitrite Urine Negative (Negative); Protein Urine 1+ (Negative); Specific Gravity Urine 1.013 (1.000-1.030); Urobilinogen Urine Negative (Negative); pH Urine 5.5 (4.5-7.5)
[2023-02-21 08:00] LABS: Hematocrit (blood only) 23.8 % (37.0-47.0); Hemoglobin 7.6 g/dl (12.0-16.0); Mean Corpuscular Hemoglobin 25.9 pg (25.0-34.0); Mean Corpuscular Hgb Conc 31.9 g/dL (32.0-36.0); Mean Corpuscular Volume 81.2 fL (80.0-100.0); Mean Platelet Volume 11.6 fL (9.4-12.4); Platelet Count 261 K/uL (130-400); RDW Coefficient of Variation 18.3 % (11.5-14.5); RDW Standard Deviation 55.1 fL (36.4-46.3); Red Blood Count 2.93 M/uL (4.20-5.40); White Blood Count 18.33 K/ul (4.8-10.8)
[2023-02-21 08:16] LABS: BUN Creatinine Ratio 19.5 (10-20); Creatinine Clr Calc Pharmacy 9.6 ml/min; Est GFR (African American) 10.6 ml/min; Est GFR (Non-African American) 9.1 ml/min; Magnesium 1.9 mg/dl (1.7-2.4); Phosphorus 3.2 mg/dl (2.5-4.9); Potassium 4.2 mmol/L (3.5-5.1)
[2023-02-21 08:54] LABS: RBC Urine Automated 0-4 /hpf (0-4)
[2023-02-21 08:55] LABS: Amorphous Sediment Urine Present (None Prsent); Bacteria Urine Automated 1+ (Negative)
[2023-02-21] MEDS: LANTUS PER UNIT CHARGE SC SCH (09:15)
[2023-02-21] MEDS: CHOLECALCIFEROL 1,000 UNITS 25 MCG TAB PO SCH (09:16)
[2023-02-21] MEDS: ASCORBIC ACID 500 MG TAB PO SCH (09:16)
[2023-02-21] MEDS: PIPERACILLIN/TAZOBACTAM 4.5 GM in DEXTROSE 5% MINI-B 100 ML IV SCH ×2 (09:17→22:08)
--- NOTE | 2023-02-21 10:00 | Nephrology Progress Note ---
Date of Service February 21, 2023 Assessment & Plan (1) Acute kidney injury: (2) Anemia: (3) Chronic kidney disease, stage IV (severe): (4) Anastomotic leak of intestine: Plan 87 year old F with h/o CKD stage G3A b/l cr 1.1-1.3 mg/dl, AODM, hyperlipidemia, osteoporosis and prior h/o TIA, recent Dx of adenocarcinoma of the colon s/p R open hemicolectomy 02/06/23. On post-op day #10 developed a fever, CT A/P w/ IV contrast was negative for obstruction or anastomotic leak, fever continues despite broad spectrum antibiotics. 02/19/23 CXR revealed pneumoperitoneum. Exploratory laparotomy revealed an anastomotic leak/perforation and had resection of the anastomosis w/ creation of an end ileostomy. Cr was 1.3 on 02/16/23 and has been rising sharply over last 1 week, cr 4.1 this morning. UO 75 ml over last 5 h, positive >1 L last 24 h. On Zosyn and Doxycycline. BP fair. Respiratory status acceptable --NS 500 ml IV bolus now, monitor UO --no acute indication for VIRTUAL OFFICE ASSISTANT at this time, may need to consider in the next 24 to 48 hours if progressive worsening of renal function and remained oliguric Admission and Anticipated Discharge Date Admission Date: February 06, 2023 Junior Veliz was seen and evaluated this morning. She denied any specific symptoms. BP fair. Renal function continues to worsen, creatinine up to 4.1 this morning. Urine output has been low, only 70 mL over last 5 hours, bladder scan with minimal urine. Review of Systems Review of Systems: detail ROS was unremarkable. Physical Exam Constitutional: WD/WN, vitals as above no acute distress Eyes: + anicteric sclerae Neck: normal visual inspection Cardiovascular: Rate/Rhythm: regular rate and regular rhythm Heart Sounds: normal S1 and normal S2 Extremities: no edema Neurologic: no focal motor deficits Psychiatric: awake, alert Results & Data Vital Signs (Past 12 Hours) Vital Signs Temp Pulse Pulse Pulse Resp BP BP 02/21/23 07:31 36.6 C 72 19 155/71 H 02/21/23 04:19 36.5 C 75 14 161/81 H 02/20/23 22:55 36.8 C 65 13 02/20/23 22:54 68 122/69 02/20/23 22:37 124 H 149/81 H 02/20/23 22:00 74 Pulse Ox O2 Del Method O2 Flow Rate 02/21/23 07:31 99 Room Air 02/21/23 04:19 Nasal Cannula 1 02/20/23 22:55 99 Nasal Cannula 1 02/20/23 22:54 02/20/23 22:37 02/20/23 22:00 PG Care Time/CCT Total # of Minutes Spent Total Time Spent with Patient: Total time spent is greater than 50% in coordination of care (as documented) at patient's floor/unit and/or counseling patient: Coding Level of Care Code 54242 SUB INP/OBS CARE 2/35MIN Diagnoses Acute kidney injury N17.9 Anemia D64.9 Anemia type: unspecified type Chronic kidney disease, stage IV (severe) N18.4 Anastomotic leak of intestine K91.89 (2) Anemia Anemia type: unspecified type Qualified Code(s): D64.9 - Anemia, unspecified
[2023-02-21] MEDS ORDERED: METOPROLOL TARTRATE 1 MG/ML VIAL IV STA (11:43)
--- NOTE | 2023-02-21 12:10 | Surgery Progress Note ---
Date of Service February 21, 2023 Assessment & Plan (1) Anastomotic leak of intestine: Plan: Continue n.p.o. status for now and PPN If she continues to be n.p.o., can place a PICC line on Thursday initiate TPN Continue her IV antibiotics and await her ostomy function Twice daily wet-to-dry dressing changes to her midline incision Previous comanagement of her comorbidities Nephrology is on board and her creatinine is up to 4 today, she is still making some urine (2) H/O right hemicolectomy: Admission and Anticipated Discharge Date Admission Date: February 06, 2023 Subjective Patient seen and examined. She is little bit confused this morning and is in sinus tachycardia. No new complaints about her abdomen. No nausea or vomiting. Physical Exam Constitutional: WD/WN, vitals as above Gastrointestinal (Abdomen): Soft, appropriately tender to palpation, ostomy in the right lower quadrant pink with some output Results & Data Vital Signs (Past 12 Hours) Vital Signs Temp Pulse Pulse Resp BP Pulse Ox O2 Del Method 02/21/23 11:14 36.8 C 140 H 18 143/98 H 95 Nasal Cannula 02/21/23 07:31 36.6 C 72 19 155/71 H 99 Room Air 02/21/23 04:19 36.5 C 75 14 161/81 H Nasal Cannula O2 Flow Rate 02/21/23 11:14 2 02/21/23 07:31 02/21/23 04:19 1 PG Care Time/CCT Total # of Minutes Spent Total Time Spent with Patient: Total time spent is greater than 50% in coordination of care (as documented) at patient's floor/unit and/or counseling patient: Coding Level of Care Code 56067 Post Operative Follow-Up Diagnoses Anastomotic leak of intestine K91.89 H/O right hemicolectomy Z90.49
[2023-02-21] MEDS ORDERED: SODIUM CHLORIDE 0.9% 500 ML IV ONE (12:38)
[2023-02-21] MEDS: HYDROmorphone INJ 0.5 MG/0.5 ML SYR IV PRN ×2 (13:57→22:28)
[2023-02-21 14:31] LABS: Hematocrit (blood only) 23.4 % (37.0-47.0); Hemoglobin 7.4 g/dl (12.0-16.0); Mean Corpuscular Hemoglobin 26.1 pg (25.0-34.0); Mean Corpuscular Hgb Conc 31.6 g/dL (32.0-36.0); Mean Corpuscular Volume 82.4 fL (80.0-100.0); Platelet Count 272 K/uL (130-400); RDW Coefficient of Variation 18.1 % (11.5-14.5); RDW Standard Deviation 55.5 fL (36.4-46.3); Red Blood Count 2.84 M/uL (4.20-5.40); White Blood Count 15.96 K/ul (4.8-10.8)
[2023-02-21] MEDS ORDERED: SODIUM CHLORIDE 0.9% 250 ML IV PRN (14:39)
[2023-02-21] MEDS ORDERED: CENTRAL TPN IV SCH (16:00)
[2023-02-21] MEDS ORDERED: [UNRECOGNIZED DRUG - OTHER] IV SCH (16:00)
--- NOTE | 2023-02-21 18:13 | Billing Data ---
Date of Service February 21, 2023 Coding Level of Care Code 59839 SUB INP/OBS CARE MIN
--- NOTE | 2023-02-21 21:52 | Ultrasound Report ---
ULTRASOUND LEFT UPPER EXTREMITY VENOUS CLINICAL HISTORY: Left arm pain and swelling. COMPARISON STUDY: No priors. TECHNIQUE: Real-time, grayscale, and color Doppler sonography of the deep veins of the left upper ext remity is performed. Compression and augmentation were utilized. FINDINGS: There is no sonographic evidence of deep venous thrombosis identified in the left upper ext remity. The left internal jugular, axillary, and brachial veins are patent and normally compressible. Normal venous waveforms and augmentation are seen within the left subclavian vein. The basilic vein is clear. There is occlusive superficial venous thrombosis identified in the cephalic vein, extending from the upper extremity to the mid forearm. This measures greater than 5 cm in length. The visualiz ed radial and ulnar veins are patent. IMPRESSION: 1 There is no sonographic evidence of deep venous thrombosis identified in the left upper extremity. 2. Occlusive superficial venous thrombus within the cephalic vein as detailed above. ACT 112: Negative or not required by law. Electronically signed by: Justus Galdamez M.D. 02/21/2023 9:49 PM
[2023-02-21] MEDS: DONEPEZIL HCL 5 MG TAB PO SCH (22:07)
[2023-02-21] MEDS: QUEtiapine FUMARATE 25 MG TABLET PO SCH (22:07)
[2023-02-21] MEDS: VORTIOXETINE HYDROBROMIDE 10 MG PO SCH (22:08)
[2023-02-21] MEDS: HEPARIN SOD 5,000 UNIT/0.5 ML VIAL SQ SCH (22:11)
[2023-02-21] MEDS ORDERED: BUMETANIDE 2 MG in SYRINGE 0 ML IV STA (22:49)
[2023-02-22] MEDS: INSULIN ASPART PER UNIT CHARGE SC SCH ×5 (00:04→17:52)
[2023-02-22] MEDS: ACETAMINOPHEN 1,000 MG/100 ML VIAL IV SCH ×2 (01:49→09:33)
[2023-02-22] MEDS: DOXYCYCLINE HYCLATE 100 MG in DEXTROSE 5% MINI-B 100 ML IV SCH ×2 (02:32→13:36)
[2023-02-22 06:12] LABS: Hematocrit (blood only) 24.3 % (37.0-47.0); Hematocrit (blood only) 24.9 % (37.0-47.0); Hemoglobin 7.7 g/dl (12.0-16.0); Hemoglobin 7.8 g/dl (12.0-16.0); Mean Corpuscular Hemoglobin 26.1 pg (25.0-34.0); Mean Corpuscular Hgb Conc 32.1 g/dL (32.0-36.0); Mean Corpuscular Volume 81.3 fL (80.0-100.0); Nucleated RBC # (auto) 0.02 K/uL (0.00-0.12); Nucleated RBC % (auto) 0.1 %; Platelet Count 352 K/uL (130-400); RDW Coefficient of Variation 18.5 % (11.5-14.5); RDW Standard Deviation 54.4 fL (36.4-46.3); Red Blood Count 2.99 M/uL (4.20-5.40); White Blood Count 18.71 K/ul (4.8-10.8)
--- NOTE | 2023-02-22 06:21 | Communication Note ---
Date of Service: February 22, 2023 Notified at approximately 5 AM this morning by patient's nurse about "moderate bleeding" from dressing site. Went to bedside patient had soaked through multiple layers of dressing. Vitals were stable MAP >100, HR 70s-80s. Ordered stat H&H, which showed no change in hemoglobin or hematocrit level. Resident Activity Tracking Resident Involvement: Resident Care Provided and Dye Tub Operator Coverage Note Care Provided: Adult Hospital Medicine
[2023-02-22 06:37] LABS: BUN Creatinine Ratio 17.4 (10-20); Calcium 9.5 mg/dl (8.6-10.3); Creatinine Clr Calc Pharmacy 7.9 ml/min; Est GFR (African American) 8.4 ml/min; Est GFR (Non-African American) 7.3 ml/min; Potassium 4.7 mmol/L (3.5-5.1)
--- NOTE | 2023-02-22 06:45 | Hospitalist Progress Note ---
Date of Service February 22, 2023 Assessment & Plan (1) Elevated blood pressure reading: Plan: Pt is an 87 y/o female with PMH of DM, colon cancer, TIA (2021), dementia, chronic low back pain, CKD, and HLD presenting to the hospital for right hemicolectomy. Initial surgery 03/09. Returned to the OR 02.19 for ischemic bowel resection and ileostomy creation. #Febrile State #Probable bowel leak #Severe Sepsis Patient with clinical deterioration and severe sepsis starting 02/16. With elevated procal and CRP likely bacterial in nature. Started on empiric CTX. Likely abdominal source. CT A&P consistent with prior leak, no obvious perforation. Repeat trip to the OR 02/19 - ischemic bowel resection with ileostomy creation. Peritoneal fluid growing VRE E. faecium and ESBL. Blood cultures NGTD x5 days. Abx adjusted as below. Would be very cautious with fluid bolus at this time. Patient has normal perfusion and is third spacing significantly. She has a high likelihood of developing flash pulmonary edema and respiratory failure with any sort of aggressive fluid resuscitation. If this were to happen she would likely require emergent dialysis. Would avoid hypoperfusion/hypotension. If she does become hypoperfused/hypotensive would do 1-2 uPRBCs (consented, has two units on hold). Antibiotics: Ceftriaxone started 02/16 - 02/17 Switched to Zosyn 02/17 Added doxycycline 02/17 for anaplasmosis coverage, stop 02/27 Added daptomycin 02/22 for VRE Micro: Blood cultures 02/16 NGTD x 5 days Peritoneal fluid 02/19 Escherichia coli ESBL Enterococcus faecium VRE #ARCELIA on CKD IV #ATN Baseline Cr ~ 1.6-1.7. Has had a significant bump in creatinine, creatinine continues to climb. Likely intrinsic kidney injury most likely acute tubular necrosis as FeNa 1.7%. No current indications for renal replacement therapy. Will consult nephrology - appreciate recs. Continue to monitor. Nephrology on board - giving bumex today, if this does not provide adequate diuresis may need dialysis, they will work on obtaining access Would defer on PPN volume/frequency to nephrology #A fib with RVR Patient without a history of atrial fibrillation. 02/20 developed a fib with RVR. Responds well to Lopressor 5 mg IV. Likely in the setting of + fluid status and severe illness. Continue to monitor. Lopressor for HR > 120 if BP can tolerate. Heparin SQ BID for VTE ppx. #IV Access Patient has been through quite a few IV sites. Unable to obtain PICC 02/21. Does to PIV x1. If patient clinically deteriorates she will likely need 2 sites. If this is not obtainable a central line would be best. Ideally a line compatible with dialysis unless her kidney function starts to improve. Dr. Brown, critical care, is peripherally aware of her and willing to place the line if she deteriorates. #Coagulability #Bleeding Patient at high risk of developing VTE. Is on heparin SQ BID for dvt ppx. Patient with nosebleed and ostomy site bleeding overnight. Held am dose. Continue to monitor and adjust as indicated. #Parental Nutrition Pharmacy/Dietary on board. Ideally would obtain central line to minimize amount of fluid needed for nutritional support. Ostomy has begun functioning. Hopefully she will be able to take PO soon and this will no longer be an issue. 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 Continue with doxycycline x 10 days. Elevated BP Asymptomatic elevated blood pressure persistently in postoperative period. While likely reactive to recent surgery and pain, given pt's age and comorbidities she likely has underlying hypertension. With patient's history of CKD IV she is now on 5 mg amlodipine. Would err on the side of caution as to avoid hypotension, hypoperfusion, and falls in this elderly patient. Holding amlodipine as patient with tenuous clinical status and recent soft BPs. Holding amlodipine Dementia Patient on Seroquel 12.5 mg and donepezil 5 mg QHS. Continue while inpatient Insulin Dependent Diabetes Mellitus SSI while hospitalized. Resume home dosing on discharge Depression Continue home vortioxetine OAB Continue home oxybutynin HLD Continue statin therapy Diet: NPO, sips and chips okay, started on PPN - monitor fluid status DVT ppx: heparin BID, held AM dose 02/22 for overnight bleeding Code: full Dispo: PCU/Tele, will need rehab, has bed at [facility] Family Updated: 02/20 at bedside (2) Chronic kidney disease, stage IV (severe): (3) Anastomotic leak of intestine: (4) Atrial fibrillation with rapid ventricular response: (5) On parenteral nutrition: Admission and Anticipated Discharge Date Admission Date: February 06, 2023 Supervising Physician Co-Signing Physician Notes I personally examined the patient and verified all kinsey points of history and exam, discussed case, and agree with decision making with Dr Edwards no meaningful HPI or ROS obtainable from pt. family present at bedside updated extensively and answered all questions to the best of my ability. vitals noted somewhat somnolent but nad. HEENT normocephalic atraumatic mucous membranes moist. cardio is regular no r/m/g, breathing unlabored no accessory muscle use good spontaneous effort lungs sound clear - somewhat difficult exam but no r/r/w. Skin shows no rashes no pallor or icterus. Neuro without focal deficits noted. Sepsis abdominal sourcenow postop again, appreciate surgical assistance. Continue broad antibiotics and supportive care. added dapto given growth of VRE today. Acute renal failure is almost certainly ATNmaintaining perfusion, following electrolytes, but her oliguria is concerning, and given that she is third spacing some, but her breathing is stable, anticipating HD likely tomorrow due to oliguria and risk for respiratory failure from edema - but fortunately not showing this at this time. continue IV nutrition until intestines allow for enteral intake - has been difficult due to only peripheral access and need to minimize overall fluids with oliguria. Interestingly her CBC prompted a peripheral smear that shows inclusion bodies consistent with anaplasmosiswe are certainly in a very endemic area, but at the same time the patient has been in the hospital for 10 days. Given how common it is around here and given that she does have a vague but predominantly constitutional sepsis syndrome, definitely obligated to treat and have added doxycyclineBut to be clear her sepsis was from an abdominal source DVT proph - heparin SQ Subjective Patient seen at bedside. Reports pain. History limited by mental status. Review of Systems 2 Review of Systems: As per HPI Physical Exam 2 Physical Exam: Gen: thin appearing elderly female, diffuse third spacing noted, no respiratory distress HEENT: AT NC MMM CV: RRR no m/r/g clinically well perfused Resp: CTAB no wheezing no increased work of breathing Abd: soft, diffusely tender, functioning ostomy in place MSK: no obvious deformities Psych: appropriate mood and affect Neuro: alert and oriented Skin: no rashes or bruising noted Results & Data Results & Data Vital Signs (Past 12 Hours) Vital Signs Temp Pulse Pulse Pulse Resp BP Pulse Ox 02/22/23 05:30 36.5 C 78 24 176/80 H 95 02/22/23 03:26 36.5 C 76 18 178/79 H 97 02/21/23 23:03 36.5 C 75 24 153/68 H 97 02/21/23 21:59 77 02/21/23 20:04 36.5 C 93 H 22 175/74 H 92 02/21/23 20:00 O2 Del Method O2 Flow Rate 02/22/23 05:30 Room Air 02/22/23 03:26 Room Air 02/21/23 23:03 Nasal Cannula 1 02/21/23 21:59 02/21/23 20:04 Room Air 02/21/23 20:00 Nasal Cannula 1 Laboratory Results 02/22/23 05:42 02/22/23 05:42 Resident Activity Tracking Resident Involvement: Resident Care Provided Care Provided: Adult Hospital Medicine
[2023-02-22 06:50] LABS: ALC (manual) 1.87 K/uL (1.2-3.4); ANC (manual) 16.28 K/uL (1.4-6.5); Eosinophils # (manual) 0.19 K/uL (0-0.50); Eosinophils % (manual) 1 %; Lymphocytes # (manual) 1.87 K/uL (1.2-3.4); Lymphocytes % (manual) 10 %; Monocytes # (manual) 0.19 K/uL (0.11-0.59); Monocytes % (manual) 1 %; Myelocytes # (manual) 0.19 K/uL (0-0); Myelocytes % (manual) 1 %; Neutrophils # (manual) 16.28 K/uL (1.40-6.50); Neutrophils % (manual) 87 %
[2023-02-22] MEDS: CHOLECALCIFEROL 1,000 UNITS 25 MCG TAB PO SCH (08:19)
[2023-02-22] MEDS: ASCORBIC ACID 500 MG TAB PO SCH (08:19)
[2023-02-22] MEDS: HEPARIN SOD 5,000 UNIT/0.5 ML VIAL SQ SCH ×2 (08:27→20:55)
[2023-02-22] MEDS ORDERED: DAPTOmycin 325 MG in SYRINGE 0 ML IV SCH (09:00)
[2023-02-22] MEDS: PIPERACILLIN/TAZOBACTAM 4.5 GM in DEXTROSE 5% MINI-B 100 ML IV SCH ×2 (09:31→20:54)
[2023-02-22] MEDS ORDERED: BUMETANIDE 4 MG in SYRINGE 0 ML IV STA (10:36)
--- NOTE | 2023-02-22 10:38 | Surgery Progress Note ---
Date of Service February 22, 2023 Assessment & Plan (1) Anastomotic leak of intestine: Plan: Continue n.p.o. status for now and PPN She may need a central line if she loses peripheral access, critical care team is on board for this if needed We will hold off on any enteral feeds at this point as she still does not have much ostomy output We will change to a once daily wet-to-dry dressing changes of her midline incision to minimize any trauma to the wound to try to minimize the bleeding Nephrology on board, no plans for any CASE RESOLUTION SPECIALIST her dialysis at this point Continue her IV antibiotics, data was added due to VRE growing in her peritoneal cultures (2) H/O right hemicolectomy: Admission and Anticipated Discharge Date Admission Date: February 06, 2023 Subjective Patient seen and examined. She is fairly lethargic. Stable overnight. Her heart rate is improved. Per nursing she had some bleeding from her wound that was reinforced overnight. Physical Exam Constitutional: WD/WN, vitals as above Gastrointestinal (Abdomen): Inspection/Auscultation: abdomen normal to inspection; abdomen not distended Percussion/Palpation: + abdomen tender (Appropriately) and abdomen soft; no guarding Midline incision open, dressing changed at bedside without any signs of purulence Results & Data Vital Signs (Past 12 Hours) Vital Signs Temp Pulse Pulse Resp BP Pulse Ox O2 Del Method 02/22/23 07:31 36.6 C 79 20 175/79 H 95 Room Air 02/22/23 05:30 36.5 C 78 24 176/80 H 95 Room Air 02/22/23 03:26 36.5 C 76 18 178/79 H 97 Room Air 02/21/23 23:03 36.5 C 75 24 153/68 H 97 Nasal Cannula O2 Flow Rate 02/22/23 07:31 02/22/23 05:30 02/22/23 03:26 02/21/23 23:03 1 PG Care Time/CCT Total # of Minutes Spent Total Time Spent with Patient: Total time spent is greater than 50% in coordination of care (as documented) at patient's floor/unit and/or counseling patient: Coding Level of Care Code 57726 Post Operative Follow-Up Diagnoses Anastomotic leak of intestine K91.89 H/O right hemicolectomy Z90.49
--- NOTE | 2023-02-22 11:11 | Nephrology Progress Note ---
Date of Service February 22, 2023 Assessment & Plan (1) Acute kidney injury: (2) Anemia: (3) Chronic kidney disease, stage IV (severe): (4) Anastomotic leak of intestine: Plan 87 year old F with h/o CKD stage G3A b/l cr 1.1-1.3 mg/dl, AODM, hyperlipidemia, osteoporosis and prior h/o TIA, recent Dx of adenocarcinoma of the colon s/p R open hemicolectomy 02/06/23. On post-op day #10 developed a fever, CT A/P w/ IV contrast was negative for obstruction or anastomotic leak, fever continues despite broad spectrum antibiotics. 02/19/23 CXR revealed pneumoperitoneum. Exploratory laparotomy revealed an anastomotic leak/perforation and had resection of the anastomosis w/ creation of an end ileostomy. Cr was 1.3 on 02/16/23 and has been rising sharply over last 1 week, cr 4.1 this morning. UO 75 ml over last 5 h, positive >1 L last 24 h. On Zosyn and Doxycycline. BP fair. Respiratory status acceptable --Bumex 4 mg iv now, may need to consider DAY CARE CENTER DIRECTOR in next 24 h if no response to diuretics as she has been oligoanuric last >24 h and cr continues to rise sharply. --however with her other significant comorbidities, recent Dx of colon ca, advanced age, penitentiary dialysis will not provide any meaningful quality of life. Discussed with daughter Pamela over telephone ( Pamela: [phone]) who decided to consider DAY CARE CENTER DIRECTOR if needed. Will keep NPO and possible catheter and dialysis tomorrow. Considering VRE from peritoneal fluid, high risk for bacteremia, will get a temporary catheter for now. Admission and Anticipated Discharge Date Admission Date: February 06, 2023 Junior Veliz was seen and evaluated this morning. She remained lethargic, did not open eyes, responded minimally but denied any specific symptoms. BP has been high. Renal function continues to worsen, creatinine up to 5.0 this morning. Urine output has been low, clinically looks volume overloaed, minimum response to IV Bumex 2 mg last night. Review of Systems Review of Systems: detail ROS was unremarkable. Ear, Nose, Mouth, Throat: no problem reported Physical Exam Constitutional: WD/WN, vitals as above + ill appearing and + lethargic; no acute distress Eyes: + anicteric sclerae Neck: normal visual inspection Cardiovascular: Rate/Rhythm: regular rate and regular rhythm Heart Sounds: normal S1 and normal S2 Extremities: + edema Neurologic: + obtunded could not be assessed. Psychiatric: could not be assessed. Results & Data Vital Signs (Past 12 Hours) Vital Signs Temp Pulse Pulse Resp BP Pulse Ox O2 Del Method 02/22/23 10:49 Room Air 02/22/23 07:31 36.6 C 79 20 175/79 H 95 Room Air 02/22/23 05:30 36.5 C 78 24 176/80 H 95 Room Air 02/22/23 03:26 36.5 C 76 18 178/79 H 97 Room Air PG Care Time/CCT Total # of Minutes Spent Total Time Spent with Patient: Total time spent is greater than 50% in coordination of care (as documented) at patient's floor/unit and/or counseling patient: Coding Level of Care Code 02267 SUB INP/OBS CARE 3/50MIN Diagnoses Acute kidney injury N17.9 Anemia D64.9 Anemia type: unspecified type Chronic kidney disease, stage IV (severe) N18.4 Anastomotic leak of intestine K91.89 (2) Anemia Anemia type: unspecified type Qualified Code(s): D64.9 - Anemia, unspecified
[2023-02-22 13:39] LABS: Hematocrit (blood only) 22.4 % (37.0-47.0); Hemoglobin 7.1 g/dl (12.0-16.0)
--- NOTE | 2023-02-22 14:23 | Pharmacy Report ---
PHA: Parenteral Nutrition Con - Date of Service February 22, 2023 - Scope Pharmacy was consulted to manage parenteral nutrition orders for this patient. - Subjective The patient is currently on day 4 of peripheral parenteral nutrition - Objective Height: 5 ft 4.5 in Weight: 77.1 kg Diet: NPO Intake & Output (24hrs):: Intake & Output 02/20/23 02/21/23 02/22/23 02/23/23 06:59 06:59 06:59 06:59 Intake Total 3780.667 / 3780.667 2358.993 / 2358.993 2485.257 / 2485.257 200 / 200 Output Total 375 / 375 575 / 575 825 / 825 Balance 3405.667 / 3405.667 1783.993 / 3135.608 1984.257 / 1660.257 200 / 200 Weight 75.7 kg 75.7 kg 76.1 kg 77.1 kg Laboratory Data (Last 24 Hr):: 02/22/23 05:42 Sodium 132 L Potassium 4.7 Chloride 100 Carbon Dioxide 19 L BUN 86 H Creatinine 4.95 H* D Glucose 114 H Calcium 9.5 Phosphorus 4.0 Magnesium 2.0 Triglycerides 273 H Nutrition Assessment:: Please refer to the Notes section of the EMR for the most recent coil cutter note. - Plan 02/22 * Had recommended yesterday to provider that they should consider patient get central access to help reach calorie goal and to help limit fluid. Plan was for TPN yesterday, however they were not able to get a site for central access, therefore order placed on hold. * Patient's Scr continues to rise more today. Nephrology following and trialing diuretics/NS boluses. Patient to be kept NPO for possible catheter/dialysis line per their notes. Discussed with nephrology and they expressed concerns for nutrition and felt that PPN warranted. Surgery feels that PPN is most appropriate option and want to hold off on any enteral feeds. * Discussed with hospitalist and would like PPN today max 1 liter. I did discuss that electrolytes will need to be monitored as we are already at max with osmolarity for peripheral site. Provider aware supplemental IV electrolyte replacements may be needed. - Plan For day 4 of PN administration, the following will be ordered: Macronutrients Amino acids 43 grams/day Dextrose 50 grams/day Micronutrients Sodium chloride 60 mEq Sodium acetate 80 mEq Magnesium sulfate 4.06 mEq Multivitamins 10 mL Trace Elements 1 mL Additional additives: Thiamine 100 mg Total volume 1077mL to be infused over 24 hrs will provide 340 kcal/day Final osmolarity 890 mOsm/L (maximum for PPN is 900 mOsm/L) Labs, as indicated, will be ordered per protocol Pharmacy will continue to follow and adjust parenteral nutrition orders on a daily basis. Thank you for allowing us to participate in the care of this patient.
[2023-02-22] MEDS ORDERED: DAPTOmycin 275 MG in SYRINGE 0 ML IV ONE (15:15)
[2023-02-22] MEDS ORDERED: [UNRECOGNIZED DRUG - OTHER] IV SCH (16:00)
[2023-02-22] MEDS ORDERED: [UNRECOGNIZED DRUG - OTHER] IV SCH (16:00)
[2023-02-22] MEDS ORDERED: PERIPHERAL TPN IV SCH ×2 (16:00)
--- NOTE | 2023-02-22 17:40 | Billing Data ---
Date of Service February 22, 2023 Coding Level of Care Code 86118 SUB INP/OBS CARE MIN
[2023-02-22 19:06] LABS: Hematocrit (blood only) 22.3 % (37.0-47.0)
--- NOTE | 2023-02-22 19:37 | Electrocardiogram Report ---
Test Reason : Blood Pressure : / mmHG Vent. Rate : 069 BPM Atrial Rate : 069 BPM P-R Int : 154 ms QRS Dur : 136 ms QT Int : 412 ms P-R-T Axes : 064 046 058 degrees QTc Int : 441 ms Normal sinus rhythm Right bundle branch block Abnormal ECG When compared with ECG of 29-JAN-2023 11:16, No significant change was found Confirmed by Tripp Neves ([id number]) on 02/22/2023 7:36:48 PM Referred By: Javier Mary Confirmed By:Tripp Neves
[2023-02-22] MEDS: DONEPEZIL HCL 5 MG TAB PO SCH (20:54)
[2023-02-22] MEDS: QUEtiapine FUMARATE 25 MG TABLET PO SCH (20:55)
[2023-02-22] MEDS: VORTIOXETINE HYDROBROMIDE 10 MG PO SCH (20:55)
[2023-02-23] MEDS: INSULIN ASPART PER UNIT CHARGE SC SCH ×5 (01:06→20:54)
[2023-02-23] MEDS: DOXYCYCLINE HYCLATE 100 MG in DEXTROSE 5% MINI-B 100 ML IV SCH ×2 (01:29→13:59)
[2023-02-23 06:32] LABS: Hematocrit (blood only) 19.6 % (37.0-47.0); Hemoglobin 6.4 g/dl (12.0-16.0); Mean Corpuscular Hemoglobin 26.1 pg (25.0-34.0); Mean Corpuscular Hgb Conc 32.7 g/dL (32.0-36.0); Mean Platelet Volume 10.9 fL (9.4-12.4); Nucleated RBC # (auto) 0.04 K/uL (0.00-0.12); Nucleated RBC % (auto) 0.2 %; Platelet Count 453 K/uL (130-400); RDW Coefficient of Variation 18.6 % (11.5-14.5); RDW Standard Deviation 54.3 fL (36.4-46.3); Red Blood Count 2.45 M/uL (4.20-5.40)
[2023-02-23 06:49] LABS: BUN Creatinine Ratio 18.4 (10-20); Est GFR (African American) 7.2 ml/min; Est GFR (Non-African American) 6.2 ml/min; Magnesium 2.1 mg/dl (1.7-2.4); Phosphorus 5.3 mg/dl (2.5-4.9)
--- NOTE | 2023-02-23 06:54 | Hospitalist Progress Note ---
Date of Service February 23, 2023 Assessment & Plan (1) Elevated blood pressure reading: Plan: Pt is an 87 y/o female with PMH of DM, colon cancer, TIA (2021), dementia, chronic low back pain, CKD, and HLD presenting to the hospital for right hemicolectomy. Initial surgery 02/06. Returned to the OR 02/19 for ischemic bowel resection and ileostomy creation. #Severe Sepsis #Peritonitis s/p Rt hemicolectomy -02/06. Returned to OR 02/17 for bowel leak. -Peritoneal fluid growing VRE E. faecium and ESBL. Blood cultures NGTD x5 days. Antibiotics: Ceftriaxone started 02/16 - 02/17 Switched to Zosyn 02/17 Added doxycycline 02/17 for anaplasmosis coverage, stop 02/27 Added daptomycin 02/22 for VRE Switched Zosyn to ertapenem 02/23 #ARCELIA on CKD IV #ATN Baseline Cr ~ 1.6-1.7. FeNa 1.7%. AIR SAMPLING AND MONITORING candidate since Oliguric for several days without improvement with diuresis and creatinine rising. -Will place a temporary dialysis line and start AIR SAMPLING AND MONITORING. Nephrology continues to follow. #Anemia #Intermittent Bleeding Patient with intermittent bleeding. Hemoglobin 6.4 02/23. -Will give 2uPRBCs while doing dialysis. PM H&H #A fib with RVR Patient without a history of atrial fibrillation. 02/20 developed a fib with RVR. Responds well to Lopressor 5 mg IV. -Lopressor for HR > 120 if BP can tolerate. -Not on full anticoagulation due to intermittent bleeding #Parental Nutrition #Hypoalbuminemia Pharmacy/Dietary consulted. Switching PPN to TPN since has central line 02/23. Ostomy has begun functioning. Hopefully she will be able to take PO soon and this will no longer be an issue. Anaplasmosis Continue with doxycycline x 10 days. Dementia Depression Patient on Seroquel 12.5 mg and donepezil 5 mg QHS. Continue while inpatient Vortioxetine Insulin Dependent Diabetes Mellitus SSI while hospitalized. Resume home dosing on discharge Lethargy Multifactorial - severe sepsis/malnutrition from acute illness/multiple comorbidities/anasarca with ATN/underlying dementia -consider out of bed once dialysis established. Lines: PIV x1, central line; Ostomy + Diet: NPO, sips and chips okay, TPN. DVT ppx: heparin BID, held AM dose 02/22 for overnight bleeding; Code: full Dispo: PCU/Tele, will need rehab, has bed at [facility] Family Updated: 02/23 (2) Chronic kidney disease, stage IV (severe): (3) Anastomotic leak of intestine: (4) Atrial fibrillation with rapid ventricular response: (5) On parenteral nutrition: Admission and Anticipated Discharge Date Admission Date: February 06, 2023 Supervising Physician Co-Signing Physician Notes Resident Physician Supervision Note: I independently interviewed and examined the patient and verified the kinsey history and physical, reviewed labs and image studies and agree with resident findings and care plan. Subjective Patient seen at bedside. Reports pain. History limited by mental status. No significant change. Review of Systems 2 Review of Systems: As per HPI Physical Exam 2 Physical Exam: Gen: thin appearing elderly female, diffuse third spacing noted, no respiratory distress HEENT: AT NC MMM CV: RRR no m/r/g clinically well perfused Resp: CTAB no wheezing no increased work of breathing Abd: soft, diffusely tender, functioning ostomy in place MSK: no obvious deformities Psych: appropriate mood and affect Neuro: alert and oriented Skin: no rashes or bruising noted Results & Data Results & Data Vital Signs (Past 12 Hours) Vital Signs Temp Pulse Pulse Resp BP BP Pulse Ox 02/23/23 02:49 36.5 C 78 22 156/76 H 96 02/23/23 00:09 36.4 C L 82 20 180/86 H 95 02/22/23 22:00 81 02/22/23 19:35 36.4 C L 83 17 168/70 H 97 O2 Del Method 02/23/23 02:49 Room Air 02/23/23 00:09 Room Air 02/22/23 22:00 02/22/23 19:35 Room Air Laboratory Results 02/23/23 05:58 02/23/23 05:58 Resident Activity Tracking Resident Involvement: Resident Care Provided Care Provided: Adult Hospital Medicine
[2023-02-23] MEDS ORDERED: SODIUM CHLORIDE 0.9% 250 ML IV PRN ×2 (07:02→14:39)
[2023-02-23 07:36] LABS: Lymphocytes % (manual) 8 %; Metamyelocytes % (manual) 3 %; Monocytes % (manual) 3 %; Neutrophils % (manual) 84 %; Plasma Cells % (manual) 2 %; Polychromasia 1+
[2023-02-23] MEDS: HEPARIN SOD 5,000 UNIT/0.5 ML VIAL SQ SCH ×2 (08:44→21:44)
[2023-02-23] MEDS: ASCORBIC ACID 500 MG TAB PO SCH (08:44)
[2023-02-23] MEDS: CHOLECALCIFEROL 1,000 UNITS 25 MCG TAB PO SCH (08:44)
[2023-02-23] MEDS: LANTUS PER UNIT CHARGE SC SCH (08:51)
[2023-02-23] MEDS: PIPERACILLIN/TAZOBACTAM 4.5 GM in DEXTROSE 5% MINI-B 100 ML IV SCH (08:56)
--- NOTE | 2023-02-23 13:10 | Nephrology Progress Note ---
Date of Service February 23, 2023 Assessment & Plan (1) Acute kidney injury: (2) Anemia: (3) Chronic kidney disease, stage IV (severe): (4) Anastomotic leak of intestine: Plan 87 year old F with h/o CKD stage G3A b/l cr 1.1-1.3 mg/dl, AODM, hyperlipidemia, osteoporosis and prior h/o TIA, recent Dx of adenocarcinoma of the colon s/p R open hemicolectomy 02/06/23. On post-op day #10 developed a fever, CT A/P w/ IV contrast was negative for obstruction or anastomotic leak, fever continues despite broad spectrum antibiotics. 02/19/23 CXR revealed pneumoperitoneum. Exploratory laparotomy revealed an anastomotic leak/perforation and had resection of the anastomosis w/ creation of an end ileostomy. Cr was 1.3 on 02/16/23 and has been rising sharply over last 1 week, cr 5.6 this morning. UO 75 ml over last 5 h, positive >1 L last 24 h. On Zosyn and Doxycycline. BP fair. Respiratory status acceptable Hb 6.4 --plan for temporary HD catheter and 2 h HD today with 1 L UF as tolerated as per Discussion with daughter Pamela over telephone ( Pamela: [phone]) yesterday who decided to consider DIRECTOR OF [employer]OD. Considering VRE from peritoneal fluid, high risk for bacteremia, will get a temporary catheter for now. --2 PRBC durign HD Admission and Anticipated Discharge Date Admission Date: February 06, 2023 Junior Veliz was seen and evaluated this morning. She remained lethargic, responded minimally but denied any specific symptoms. BP has been high. Renal function continues to worsen, creatinine up to 5.6 this morning, Hb 6.4. Urine output has been low, clinically looks volume overloaded, minimum response to IV Bumex 4 mg. Review of Systems Review of Systems: detail ROS was not possible. Physical Exam Constitutional: WD/WN, vitals as above + ill appearing and + lethargic; no acute distress Eyes: + anicteric sclerae Neck: normal visual inspection Cardiovascular: Rate/Rhythm: regular rate and regular rhythm Heart Sounds: normal S1 and normal S2 Extremities: + edema Neurologic: + obtunded; no focal motor deficits Results & Data Vital Signs (Past 12 Hours) Vital Signs Temp Pulse Resp BP BP Pulse Ox O2 Del Method 02/23/23 11:41 36.9 C 80 18 160/91 H 97 Room Air 02/23/23 07:39 36.4 C L 79 17 146/84 H 97 Room Air 02/23/23 07:29 Room Air 02/23/23 02:49 36.5 C 78 22 156/76 H 96 Room Air PG Care Time/CCT Total # of Minutes Spent Total Time Spent with Patient: Total time spent is greater than 50% in coordination of care (as documented) at patient's floor/unit and/or counseling patient: Coding Level of Care Code 23853 SUB INP/OBS CARE 235MIN Diagnoses Acute kidney injury N17.9 Anemia D64.9 Anemia type: unspecified type Chronic kidney disease, stage IV (severe) N18.4 Anastomotic leak of intestine K91.89 (2) Anemia Anemia type: unspecified type Qualified Code(s): D64.9 - Anemia, unspecified
--- NOTE | 2023-02-23 13:38 | XRay Report ---
XR chest 1V portable CLINICAL HISTORY: s/p right ij hd cath COMPARISON STUDY: Chest CT January 16, 2023. Chest radiograph February 16, 2023. FINDINGS: There is no pneumothorax following placement of a right internal jugular dialysis catheter. Tip projects over the SVC. Mild bibasilar opacities are present with small bilateral pleural effusio ns. Moderate interstitial thickening is present. Lung volumes are mildly diminished suggestive of a h ypoventilatory study. IMPRESSION: 1. No pneumothorax following placement of a right internal jugular dialysis catheter. Tip projects ov er the SVC. 2. Findings suggestive of mild pulmonary edema with small bilateral pleural effusions and bibasilar o pacities that favor atelectasis. ACT 112: Negative or not required by law. Electronically signed by: Ash Medina M.D. 02/23/2023 1:37 PM
--- NOTE | 2023-02-23 14:28 | Pharmacy Report ---
PHA: Parenteral Nutrition Con - Date of Service February 23, 2023 - Scope Pharmacy was consulted on 02/18 to manage parenteral nutrition orders for this patient. - Subjective The patient is currently on day #5 of parenteral nutrition day #1 of of central parenteral nutrition - Objective Height: 5 ft 4.5 in Weight: 77.1 kg Diet: NPO Intake & Output (24hrs):: Intake & Output 02/21/23 02/22/23 02/23/23 02/24/23 06:59 06:59 06:59 06:59 Intake Total 2358.993 / 2358.993 2485.257 / 2485.257 500 / 500 36.667 / 36.667 Output Total 575 / 575 825 / 825 150 / 150 575 / 575 Balance 1783.993 / 8050.048 1786.257 / 1660.257 350 / 350 -538.333 / -538.333 Weight 75.7 kg 76.1 kg 77.1 kg 77.1 kg Laboratory Data (Last 24 Hr):: 02/23/23 05:58 Sodium 132 L Potassium 5.0 Chloride 98 Carbon Dioxide 19 L BUN 104 H Creatinine 5.64 H* D Glucose 240 H Calcium 9.0 Phosphorus 5.3 H Magnesium 2.1 Nutrition Assessment:: Please refer to the Notes section of the EMR for the most recent activities specialist note. - Assessment F: peripheral parenteral nutrition @ 44.88 mLs/hr E: Phos 5.3; K 5.0- patient to get hemodialysis today N: TG downtrending, BSGs elevated in the 200s Will add insulin back to TPN for today, increasing today. May need electrolyte replacements outside of TPN. - Plan For day 5 of PN administration, the following will be ordered: Macronutrients Amino acids 58 grams/day Dextrose 101 grams/day Lipids 50 grams/day Micronutrients Sodium chloride 40 mEq Sodium acetate 80 mEq Multivitamins 10 mL Trace Elements 1 mL Additional additives: Thiamine 100 mg; Regular Insulin 20 units Total volume 788.2 mL to be infused over 24 Labs, as indicated, will be ordered per protocol Pharmacy will continue to follow and adjust parenteral nutrition orders on a daily basis. Thank you for allowing us to participate in the care of this patient.
--- NOTE | 2023-02-23 14:31 | Pharmacy Report ---
Pharmacy Glycemic Short Note 2 - Date of Service February 23, 2023 - Glycemic Short BSG Results (Last 24 hours): 02/22/23 02/22/23 02/23/23 16:15 20:50 00:53 Glucose POC Glucose 179 H 215 H 247 H 02/23/23 02/23/23 02/23/23 05:58 06:02 08:02 Glucose 240 H POC Glucose 263 H 273 H 02/23/23 12:08 Glucose POC Glucose 273 H OUTPATIENT ANTIDIABETIC REGIMEN: * Lantus 20 units SQ qPM * A1c = 8% ASSESSMENT: 02/23: * Patient's blood sugars elevated again today, 0 units of insulin in PPN bag with 50 gm of dextrose * Converting to central parenteral nutrition- dextrose will increase- will add 20 units of insulin to the bag (patient was used ~19 units of correctional since resuming TPN). Adjusted checks back to q4 as this helped previously. * Resumed 10 units of lantus qAM (held 02/22 d/t NPO status and ppn held until 1600). 02/19: * Patient's blood sugars elevated with initiation of Peripheral nutrition yesterday. Increase lantus to 10 units. * Dextrose content of ppn was slightly reduced today, will add 10 units of insulin to PPN bag to help cover the dextrose * Correction factor tightened to 25. Continue to monitor 02/18: * Patient had a hypoglycemic event yesterday at lunchtime with a BSG of 63 mg/dL. Thankfully patient was asymptomatic but did require 1/2 amp of D50 to correct BSG. All insulin was held yesterday. * Patient remains NPO but fasting trended up to 131 mg/dL this AM. Likely related to basal deficiency from previous day. Will order 5 units of Lantus. Novolog was loosened yesterday. Continue to trend postprandials and will adjust this afternoon if needed. 02/16: * BSGs have been reasonably well-controlled over past 72 hours, but hyperglycemic trend at lunch noted * Will tighten AM Novolog parameters this morning * Fasting BSG of 116 mg/dL this morning - continue current basal * Possible d/c to [facility] today 02/11: * Keren received 6 units of bolus insulin yesterday. * Diet has advanced today, she is tolerating more carbohydrates. * Fasting BSG elevated this AM, Lantus given at ~0.15 units/kg with Lunch * Mealtime BSGs have been slightly elevated, tighten goal range and carbohydrate coverage 02/09: * Keren did not receive any insulin yesterday * She continues on a clear liquid diet, anticipate higher need for insulin once diet advances. * Continue Novolog at weight based stress of 2 with increase goal range until diet advanced to prevent hypoglycemia. 02/08: * Keren is a 87 yo T2DM s/p open right hemicolectomy * Tolerating clear liquid diet per surgery. No nausea or vomiting. * Patient received Lantus 10 units on 02/06. This was reduced to 8 units on 02/07. Fasting continues to trend downward and was below goal this am at 70 mg/dL. Will hold further basal insulin for now. * Continue weight based Novolog for now (~stress 2) PLAN FOR INPATIENT GLYCEMIC CONTROL: * Basal insulin * Lantus 10 units SC daily * Bolus insulin * NovoLog per scale ACHS or Q4hrs while NPO * Goal Range: Low 110 mg/dL - High 140 mg/dL * Correction Factor: 20 mg/dL/unit * Nutritional / Prandial insulin per carb ratio of 1 unit per 10 grams CHO consumed 10 units of regular insulin added to parenteral nutrition.
--- NOTE | 2023-02-23 14:36 | Surgery Progress Note ---
Date of Service February 23, 2023 Assessment & Plan (1) Anastomotic leak of intestine: Plan: Patient is s/p open right hemicolectomy 02/06/[address] Mary Noted to have pneumoperitoneum on 02/14/23 Taken back to the OR 02/19/23 for a small bowel resection, ostomy creation with Dr. Keenan. +functioning ostomy with brown stool, abdominal dressing clean dry intact Patient is very lethargic , opens eyes. + grimacing with abdominal palpation. Abdomen soft. H/H this AM 6.4, 9.6 spoke to patients daughter Pamela this AM and she consented for the patient to have 2 units of PRBC. RN Alie witnessed. Creatinine is up to 5.6 - pt will receive [employer] today with a temporary HD catheter WBC 20 continue IV antibiotics Patient received central line this AM- continue TNP Will continue to monitor (2) On parenteral nutrition: (3) Chronic kidney disease, stage III (moderate): Admission and Anticipated Discharge Date Admission Date: February 06, 2023 Subjective Patient seen at bedside Very lethargic, opens eyes Physical Exam Physical Exam: patient lethargic Constitutional: + frail appearing and + edematous (extre mities) Respiratory: normal respiratory effort; no respiratory distress on room air 02 sats 97% Cardiovascular: Rate/Rhythm: regular rate (80) Gastrointestinal (Abdomen): Percussion/Palpation: + abdomen tender (+ grimacing ) and abdomen soft Results & Data Vital Signs (Past 12 Hours) Vital Signs Temp Pulse Resp BP BP Pulse Ox O2 Del Method 02/23/23 13:29 80 20 180/83 H 97 Room Air 02/23/23 11:41 98.4 F 80 18 160/91 H 97 Room Air 02/23/23 07:39 97.5 F L 79 17 146/84 H 97 Room Air 02/23/23 07:29 Room Air 02/23/23 02:49 97.7 F 78 22 156/76 H 96 Room Air PG Care Time/CCT Total # of Minutes Spent Total Time Spent with Patient: Total time spent is greater than 50% in coordination of care (as documented) at patient's floor/unit and/or counseling patient: Coding Level of Care Code 44488 Post Operative Follow-Up Diagnoses Anastomotic leak of intestine K91.89 On parenteral nutrition Z78.9 Chronic kidney disease, stage III (moderate) N18.30
--- NOTE | 2023-02-23 14:56 | Procedure Note ---
Procedure Note Date of Service February 23, 2023 Note Procedure name: Central line placement with ultrasound guidance Indication: acute on chronic renal failure requiring HD. Procedur: A time out was performed. My hands were washed immediately prior to the procedure. I wore a surgical cap, mask with protective eyewear, full gown and sterile gloves throughout the procedure. The patient was placed in Trendelenburg position. RIGHT neck region was prepped using chlorhexidine scrub and draped in sterile fashion using a full drape and sterile probe cover and sterile gel employed. The Internal Jugular vein was identified using the ultrasound. Anesthesia was achieved over the vein using 1% lidocaine. Using real-time out of plane guidance, the introducer needle was inserted into the Internal Jugular vein under direct ultrasound visualization. Venous blood was withdrawn. The syringe was removed and a guidewire was advanced into the introducer needle. The guidewire was visualized in the Internal Jugular Vein by ultrasound. A small incision was made at the skin surface with a scalpel and the introducer needle was exchanged for subsequent two dilators over the guidewire. After appropriate dilation was obtained, the dilator was exchanged over the wire for a 13cm trialysis catheter. The wire was removed and the catheter was sutured in place at the hub. A sterile sorbaview shield was placed over the catheter at the insertion site. The patient tolerated the procedure without any hemodynamic compromise. At time of procedure completion, all ports aspirated and flushed properly. Post-procedure chest x-ray showed appropriate placement. Estimated blood loss is none. Supervising Physician Co-Signing Physician Notes I personally examined the patient and verified all kinsey points of history and exam, discussed case, and agree with decision making with Dr Edwards no meaningful HPI or ROS obtainable from pt. family present at bedside updated extensively and answered all questions to the best of my ability. vitals noted somewhat somnolent but nad. HEENT normocephalic atraumatic mucous membranes moist. cardio is regular no r/m/g, breathing unlabored no accessory muscle use good spontaneous effort lungs sound clear - somewhat difficult exam but no r/r/w. Skin shows no rashes no pallor or icterus. Neuro without focal deficits noted. Sepsis abdominal sourcenow postop again, appreciate surgical assistance. Continue broad antibiotics and supportive care. added dapto given growth of VRE today. Acute renal failure is almost certainly ATNmaintaining perfusion, following electrolytes, but her oliguria is concerning, and given that she is third spacing some, but her breathing is stable, anticipating HD likely tomorrow due to oliguria and risk for respiratory failure from edema - but fortunately not showing this at this time. continue IV nutrition until intestines allow for enteral intake - has been difficult due to only peripheral access and need to minimize overall fluids with oliguria. Interestingly her CBC prompted a peripheral smear that shows inclusion bodies consistent with anaplasmosiswe are certainly in a very endemic area, but at the same time the patient has been in the hospital for 10 days. Given how common it is around here and given that she does have a vague but predominantly constitutional sepsis syndrome, definitely obligated to treat and have added doxycyclineBut to be clear her sepsis was from an abdominal source DVT proph - heparin SQ Coding
[2023-02-23] MEDS ORDERED: [UNRECOGNIZED DRUG - OTHER] IV SCH (16:00)
[2023-02-23] MEDS ORDERED: CLINOLIPID 20% IV FAT EMULSION 250 ML IV SCH (16:00)
[2023-02-23] MEDS ORDERED: [UNRECOGNIZED DRUG - OTHER] IV SCH (16:00)
[2023-02-23] MEDS ORDERED: CENTRAL TPN IV SCH ×2 (16:00)
[2023-02-23] MEDS ORDERED: ERTAPENEM SODIUM 500 MG in SYRINGE 0 ML IV SCH (16:00)
[2023-02-23] MEDS ORDERED: Nursing to Pharmacy Communication SCH (16:30)
[2023-02-23 19:26] LABS: Albumin Level 2.3 gm/dl (3.4-5.0)
[2023-02-23 19:58] LABS: Hematocrit (blood only) 25.9 % (37.0-47.0); Hemoglobin 9.2 g/dl (12.0-16.0)
[2023-02-23 20:15] LABS: Partial Thromboplastin Ratio 0.9; Partial Thromboplastin Time 24.9 Seconds (21.0-31.0); Prothrombin Time 11.3 Seconds (9.0-12.0)
[2023-02-23] MEDS: HYDROmorphone INJ 0.5 MG/0.5 ML SYR IV PRN (20:49)
[2023-02-23] MEDS: QUEtiapine FUMARATE 25 MG TABLET PO SCH (21:42)
[2023-02-23] MEDS: DONEPEZIL HCL 5 MG TAB PO SCH (21:42)
[2023-02-23] MEDS: VORTIOXETINE HYDROBROMIDE 10 MG PO SCH (21:43)
[2023-02-23] MEDS ORDERED: STOP CLINOLIPID SCH (22:00)
[2023-02-24] MEDS: INSULIN ASPART PER UNIT CHARGE SC SCH ×6 (00:03→20:49)
[2023-02-24] MEDS: DOXYCYCLINE HYCLATE 100 MG in DEXTROSE 5% MINI-B 100 ML IV SCH ×2 (01:22→13:02)
[2023-02-24] MEDS ORDERED: ACETAMINOPHEN 500 MG TAB PO SCH (03:00)
[2023-02-24 06:06] LABS: Hematocrit (blood only) 27.3 % (37.0-47.0); Hemoglobin 9.1 g/dl (12.0-16.0); Mean Corpuscular Hemoglobin 27.2 pg (25.0-34.0); Mean Corpuscular Hgb Conc 33.3 g/dL (32.0-36.0); Mean Corpuscular Volume 81.7 fL (80.0-100.0); Mean Platelet Volume 10.8 fL (9.4-12.4); Nucleated RBC # (auto) 0.08 K/uL (0.00-0.12); Nucleated RBC % (auto) 0.4 %; Platelet Count 451 K/uL (130-400); RDW Coefficient of Variation 16.6 % (11.5-14.5); RDW Standard Deviation 49.5 fL (36.4-46.3); Red Blood Count 3.34 M/uL (4.20-5.40); White Blood Count 21.76 K/ul (4.8-10.8)
[2023-02-24 06:28] LABS: ALC (manual) 1.74 K/uL (1.2-3.4); Eosinophils # (manual) 0.44 K/uL (0-0.50); Eosinophils % (manual) 2 %; Hypersegmented Neutrophils 1+; Lymphocytes # (manual) 1.74 K/uL (1.2-3.4); Lymphocytes % (manual) 8 %; Metamyelocytes # (manual) 0.22 K/uL (0-0); Metamyelocytes % (manual) 1 %; Monocytes # (manual) 0.65 K/uL (0.11-0.59); Monocytes % (manual) 3 %; Myelocytes # (manual) 0.22 K/uL (0-0); Myelocytes % (manual) 1 %; Neutrophils % (manual) 85 %
[2023-02-24 06:29] LABS: Partial Thromboplastin Ratio 0.9; Partial Thromboplastin Time 25.6 Seconds (21.0-31.0); Prothrombin Time 11.4 Seconds (9.0-12.0)
--- NOTE | 2023-02-24 06:42 | Hospitalist Progress Note ---
Date of Service February 24, 2023 Assessment & Plan (1) Elevated blood pressure reading: Plan: Pt is an 87 y/o female with PMH of DM, colon cancer, TIA (2021), dementia, chronic low back pain, CKD, and HLD presenting to the hospital for right hemicolectomy. Initial surgery 02/06. Returned to the OR 02/19 for ischemic bowel resection and ileostomy creation. #Severe Sepsis #Peritonitis d/t Anastomosis leak s/p Rt hemicolectomy -02/06. Returned to OR 02/17 for anastomosis leak. -Peritoneal fluid growing VRE E. faecium and ESBL. Blood cultures NGTD x5 days. Antibiotics: Ceftriaxone started 02/16 - 02/17 Switched to Zosyn 02/17 Added doxycycline 02/17 for anaplasmosis coverage, stop 02/27 Added daptomycin 02/22 for VRE Switched Zosyn to ertapenem 02/23 Switched ertapenem to meropenem 02/24 #ARCELIA on CKD IV #ATN Baseline Cr ~ 1.6-1.7. FeNa 1.7%. [employer] candidate since Oliguric for several days without improvement with diuresis and creatinine rising. -SU[employer] performed 02/24. Interval improvement in third spacing, mentation, and creatinine. Continue to monitor oliguria. Nephrology continues to follow. #Anemia #Intermittent Bleeding Patient with intermittent bleeding. Hemoglobin 6.4 02/23. -Given 2uPRBCs 02/24. h/h stable #A fib with RVR Patient without a history of atrial fibrillation. 02/20 developed a fib with RVR. Responds well to Lopressor 5 mg IV. -Lopressor for HR > 120 if BP can tolerate. -Not on full anticoagulation due to intermittent bleeding #Parental Nutrition #Hypoalbuminemia Pharmacy/Dietary consulted. Switching PPN to TPN since has central line 02/23. Ostomy has begun functioning. Hopefully she will be able to take PO soon and this will no longer be an issue. Anaplasmosis Continue with doxycycline x 10 days. Dementia Depression Patient on Seroquel 12.5 mg and donepezil 5 mg QHS. Continue while inpatient Vortioxetine Insulin Dependent Diabetes Mellitus SSI while hospitalized. Resume home dosing on discharge Lethargy Multifactorial - severe sepsis/malnutrition from acute illness/multiple comorbidities/anasarca with ATN/underlying dementia -consider out of bed once dialysis established. Lines: PIV x1, central line; Ostomy + Diet: NPO, sips and chips okay, TPN. DVT ppx: heparin BID, held AM dose 02/22 for overnight bleeding; Code: full Dispo: PCU/Tele, will need rehab, has bed at [facility] Family Updated: 02/23 (2) Chronic kidney disease, stage IV (severe): (3) Anastomotic leak of intestine: (4) Atrial fibrillation with rapid ventricular response: (5) On parenteral nutrition: Admission and Anticipated Discharge Date Admission Date: February 06, 2023 Supervising Physician Co-Signing Physician Notes Resident Physician Supervision Note: I independently interviewed and examined the patient and verified the kinsey history and physical, reviewed labs and image studies and agree with resident findings and care plan. Subjective Seen at bedside this AM. Slight improvement in mentation and responsiveness. Review of Systems 2 Review of Systems: As per HPI Physical Exam 2 Physical Exam: Gen: thin appearing elderly female, diffuse third spacing with interval improvement, no respiratory distress HEENT: AT NC MMM CV: RRR no m/r/g clinically well perfused Resp: CTAB no wheezing no increased work of breathing Abd: soft, diffusely tender, functioning ostomy in place MSK: no obvious deformities Psych: appropriate mood and affect Neuro: alert and oriented Skin: no rashes or bruising noted Results & Data Results & Data Vital Signs (Past 12 Hours) Vital Signs Temp Pulse Pulse Resp BP BP Pulse Ox 02/24/23 03:36 36.5 C 79 18 139/84 97 02/23/23 23:05 36.5 C 79 20 177/97 H 97 02/23/23 22:57 78 02/23/23 20:41 163/131 H 02/23/23 20:17 36.8 C 85 18 194/113 H 97 02/23/23 20:05 O2 Del Method 02/24/23 03:36 Room Air 02/23/23 23:05 Room Air 02/23/23 22:57 02/23/23 20:41 02/23/23 20:17 Room Air 02/23/23 20:05 Room Air Laboratory Results 02/24/23 05:33 02/24/23 05:33 Resident Activity Tracking Resident Involvement: Resident Care Provided Care Provided: Adult Hospital Medicine
[2023-02-24 06:48] LABS: Anion Gap 15 (3-11); BUN Creatinine Ratio 18.8 (10-20); Blood Urea Nitrogen 93 mg/dl (6-23); Calcium 9.1 mg/dl (8.6-10.3); Carbon Dioxide 22 mmol/L (21-32); Chloride 99 mmol/L (98-107); Creatine Kinase < 10 U/L (26-192); Est GFR (African American) 8.4 ml/min; Est GFR (Non-African American) 7.3 ml/min; Glucose 213 mg/dl (70-99(Fasting)); Magnesium 1.9 mg/dl (1.7-2.4); Phosphorus 4.1 mg/dl (2.5-4.9); Potassium 4.3 mmol/L (3.5-5.1); Sodium 136 mmol/L (136-145)
[2023-02-24] MEDS: ASCORBIC ACID 500 MG TAB PO SCH (08:51)
[2023-02-24] MEDS: CHOLECALCIFEROL 1,000 UNITS 25 MCG TAB PO SCH (08:51)
[2023-02-24] MEDS: ACETAMINOPHEN 1,000 MG/100 ML VIAL IV SCH ×2 (08:58→16:39)
[2023-02-24] MEDS: HEPARIN SOD 5,000 UNIT/0.5 ML VIAL SQ SCH ×2 (08:59→20:55)
[2023-02-24] MEDS ORDERED: LANTUS PER UNIT CHARGE SC SCH (09:00)
--- NOTE | 2023-02-24 10:27 | Nephrology Progress Note ---
Date of Service February 24, 2023 Assessment & Plan (1) Acute kidney injury: (2) Anemia: (3) Chronic kidney disease, stage IV (severe): (4) Anastomotic leak of intestine: Plan 87 year old F with h/o CKD stage G3A b/l cr 1.1-1.3 mg/dl, AODM, hyperlipidemia, osteoporosis and prior h/o TIA, recent Dx of adenocarcinoma of the colon s/p R open hemicolectomy 02/06/23. On post-op day #10 developed a fever, CT A/P w/ IV contrast was negative for obstruction or anastomotic leak, fever continues despite broad spectrum antibiotics. 02/19/23 CXR revealed pneumoperitoneum. Exploratory laparotomy revealed an anastomotic leak/perforation and had resection of the anastomosis w/ creation of an end ileostomy. Cr was 1.3 on 02/16/23 and has been rising sharply over last 1 week, cr 5.6 this morning. UO 75 ml over last 5 h, positive >1 L last 24 h. On Zosyn and Doxycycline. BP fair. Respiratory status acceptable Hb 6.4. Had temporary dialysis catheter on 02/24/2023 and started on dialysis for progressive worsening of renal function with oligoanuria. Tolerated 2 hours dialysis yesterday had 500 UF. However, overnight urine output improved significantly and had more than 1 L urine output. Hemoglobin improved to 9.5 this morning. --plan for 3 hours HD today, UF as tolerated. If she continues to make urine, will hold dialysis and monitor to see her that she need dialysis again. Admission and Anticipated Discharge Date Admission Date: February 06, 2023 Junior Veliz was not seen today but reviewed records and discussed with care team. Dusty bruce clinically seems to be doing better. Had first HD yesterday, received 2 units of blood transfusion during dialysis and 500 mL of UF, tolerated dialysis okay. Urine output improved significantly and had more than 1 L overnight. BP has been high. Results & Data Vital Signs (Past 12 Hours) Vital Signs Temp Pulse Pulse Pulse Resp BP BP 02/24/23 08:13 82 18 195/99 H 02/24/23 08:06 36.3 C L 83 22 194/98 H 02/24/23 07:00 78 02/24/23 03:36 36.5 C 79 18 139/84 02/23/23 23:05 36.5 C 79 20 177/97 H 02/23/23 22:57 78 Pulse Ox O2 Del Method 02/24/23 08:13 97 Room Air 02/24/23 08:06 97 Room Air 02/24/23 07:00 02/24/23 03:36 97 Room Air 02/23/23 23:05 97 Room Air 02/23/23 22:57 PG Care Time/CCT Total # of Minutes Spent Total Time Spent with Patient: Total time spent is greater than 50% in coordination of care (as documented) at patient's floor/unit and/or counseling patient: Coding Level of Care Code 29527 SUB INP/OBS CARE 05/07MIN Diagnoses Acute kidney injury N17.9 Anemia D64.9 Anemia type: unspecified type Chronic kidney disease, stage IV (severe) N18.4 Anastomotic leak of intestine K91.89 (2) Anemia Anemia type: unspecified type Qualified Code(s): D64.9 - Anemia, unspecified
[2023-02-24] MEDS: DAPTOmycin 600 MG in SYRINGE 0 ML IV SCH (11:51)
--- NOTE | 2023-02-24 14:27 | Pharmacy Report ---
Pharmacy Glycemic Short Note 2 - Date of Service February 24, 2023 - Glycemic Short BSG Results (Last 24 hours): 02/23/23 02/23/23 02/23/23 17:31 20:27 23:58 Glucose POC Glucose 154 H 189 H 234 H 02/24/23 02/24/23 02/24/23 04:06 05:33 07:38 Glucose 213 H POC Glucose 240 H 212 H 02/24/23 11:46 Glucose POC Glucose 146 H OUTPATIENT ANTIDIABETIC REGIMEN: * Lantus 20 units SQ qPM * A1c = 8% ASSESSMENT: 02/24: * Patient's BSGs yesterday were [phone] mg/dL. Today's AM BSGs were 240-212-146 mg/dL. * Patient did get 2 hrs of HD yesterday and planned for 3hr HD today. * Increased SC Lantus dose given persistently BSGs. However after BSG normalized at lunchtime and as patient receiving another round of HD today, will reduce the amount of insulin the TPN bag from 20 to 10. If BSGs trend up again can consider tightening NovoLog CF. * Will keep TPN macros the same today until BSGs somewhat consistently controlled. 02/23: * Patient's blood sugars elevated again today, 0 units of insulin in PPN bag with 50 gm of dextrose * Converting to central parenteral nutrition- dextrose will increase- will add 20 units of insulin to the bag (patient was used ~19 units of correctional since resuming TPN). Adjusted checks back to q4 as this helped previously. * Resumed 10 units of lantus qAM (held 02/22 d/t NPO status and ppn held until 1600). 02/19: * Patient's blood sugars elevated with initiation of Peripheral nutrition yesterday. Increase lantus to 10 units. * Dextrose content of ppn was slightly reduced today, will add 10 units of insulin to PPN bag to help cover the dextrose * Correction factor tightened to 25. Continue to monitor 02/18: * Patient had a hypoglycemic event yesterday at lunchtime with a BSG of 63 mg/dL. Thankfully patient was asymptomatic but did require 1/2 amp of D50 to correct BSG. All insulin was held yesterday. * Patient remains NPO but fasting trended up to 131 mg/dL this AM. Likely related to basal deficiency from previous day. Will order 5 units of Lantus. Novolog was loosened yesterday. Continue to trend postprandials and will adjust this afternoon if needed. 02/16: * BSGs have been reasonably well-controlled over past 72 hours, but hyperglycemic trend at lunch noted * Will tighten AM Novolog parameters this morning * Fasting BSG of 116 mg/dL this morning - continue current basal * Possible d/c to [facility] today 02/11: * Keren received 6 units of bolus insulin yesterday. * Diet has advanced today, she is tolerating more carbohydrates. * Fasting BSG elevated this AM, Lantus given at ~0.15 units/kg with Lunch * Mealtime BSGs have been slightly elevated, tighten goal range and carbohydrate coverage 02/09: * Keren did not receive any insulin yesterday * She continues on a clear liquid diet, anticipate higher need for insulin once diet advances. * Continue Novolog at weight based stress of 2 with increase goal range until diet advanced to prevent hypoglycemia. 02/08: * Keren is a 87 yo T2DM s/p open right hemicolectomy * Tolerating clear liquid diet per surgery. No nausea or vomiting. * Patient received Lantus 10 units on 02/06. This was reduced to 8 units on 02/07. Fasting continues to trend downward and was below goal this am at 70 mg/dL. Will hold further basal insulin for now. * Continue weight based Novolog for now (~stress 2) PLAN FOR INPATIENT GLYCEMIC CONTROL: * Basal insulin * Lantus 15 units SC daily * Bolus insulin * NovoLog per scale ACHS or Q4hrs while NPO * Goal Range: Low 110 mg/dL - High 140 mg/dL * Correction Factor: 20 mg/dL/unit * TPN: 10 units regular insulin 10 units of regular insulin added to parenteral nutrition.
--- NOTE | 2023-02-24 14:35 | Pharmacy Report ---
PHA: Parenteral Nutrition Con - Date of Service February 24, 2023 - Scope Pharmacy was consulted on 02/18 to manage parenteral nutrition orders for this patient. - Subjective The patient is currently on day 6 of peripheral and day 2 of central parenteral nutrition . - Objective Height: 5 ft 4.5 in Weight: 78 kg Diet: NPO Intake & Output (24hrs):: Intake & Output 02/22/23 02/23/23 02/24/23 02/25/23 06:59 06:59 06:59 06:59 Intake Total 2485.257 / 2485.257 500 / 500 2189.317 / 2189.317 100 / 100 Output Total 825 / 825 150 / 150 1400 / 1400 Balance 1660.257 / 1660.257 350 / 350 789.317 / 789.317 100 / 100 Weight 76.1 kg 77.1 kg 78 kg 78 kg Laboratory Data (Last 24 Hr):: 02/23/23 02/24/23 05:58 05:33 Sodium 136 Potassium 4.3 Chloride 99 Carbon Dioxide 22 BUN 93 H Creatinine 4.96 H* D Glucose 213 H Calcium 9.1 Phosphorus 4.1 D Magnesium 1.9 Albumin 2.3 L Nutrition Assessment:: Please refer to the Notes section of the EMR for the most recent director of programming note. - Assessment Patient transitioned to central TPN yesterday. TPN was initiated slightly below goal given concerns for ongoing hyperglycemia. Will continue with this formulation again until BSGs somewhat consistently controlled. Lipids are currently planned for M,W,F. Insulin in the TPN bag was reduced today (see Pharmacy glycemic note for more additional details). Patient underwent a 2 hr HD session yesterday and will undergo a 3 hour session today. - Plan For day 2 of PN administration, the following will be ordered: Macronutrients Amino acids 58 grams/day Dextrose 101 grams/day Lipids 50 grams M,W,F Micronutrients Sodium chloride 40 mEq Sodium acetate 80 mEq Multivitamins 10 mL Trace Elements 1 mL Additional additives: thiamine 100 mg, regular insulin 10 units. Total volume 788.1 mL to be infused over 24 hrs Labs, as indicated, will be ordered per protocol Pharmacy will continue to follow and adjust parenteral nutrition orders on a daily basis. Thank you for allowing us to participate in the care of this patient.
--- NOTE | 2023-02-24 14:47 | Surgery Progress Note ---
Date of Service February 24, 2023 Assessment & Plan (1) Anastomotic leak of intestine: (2) H/O right hemicolectomy: Plan Continue TPN. Patient not awake or alert enough to undergo speech and swallowing eval/oral intake. Continue abdominal wound care No new surgical recommendations Admission and Anticipated Discharge Date Admission Date: February 06, 2023 Subjective Patient seen. Events occurred while I was noted and I discussed the case with Dr. Keenan. Procedures performed. Apparently the dialysis catheter was not functioning and she was unable to get dialysis earlier today. She is alert but very sleepy. She does answer appropriately. Currently denies pain. Physical Exam Physical Exam: Very sleepy. She does awaken to stimuli. Abdomen is soft. Ileostomy intact and functioning nicely. Wet to dry dressings with small amount of drainage Results & Data Vital Signs (Past 12 Hours) Vital Signs Temp Pulse Pulse Pulse Resp BP BP 02/24/23 11:50 35.8 C L 77 21 183/76 H 02/24/23 11:35 36.5 C 82 02/24/23 11:00 83 129/68 02/24/23 10:30 81 171/79 H 02/24/23 10:18 36.5 C 81 02/24/23 08:13 82 18 02/24/23 08:06 36.3 C L 83 22 194/98 H 02/24/23 07:30 02/24/23 07:00 78 02/24/23 03:36 36.5 C 79 18 139/84 BP Pulse Ox O2 Del Method 02/24/23 11:50 97 Room Air 02/24/23 11:35 160/71 H 02/24/23 11:00 02/24/23 10:30 02/24/23 10:18 02/24/23 08:13 195/99 H 97 Room Air 02/24/23 08:06 97 Room Air 02/24/23 07:30 Room Air 02/24/23 07:00 02/24/23 03:36 97 Room Air PG Care Time/CCT Total # of Minutes Spent Total Time Spent with Patient: Total time spent is greater than 50% in coordination of care (as documented) at patient's floor/unit and/or counseling patient: Coding Level of Care Code 35017 Post Operative Follow-Up Diagnoses Anastomotic leak of intestine K91.89 H/O right hemicolectomy Z90.49
[2023-02-24] MEDS ORDERED: [UNRECOGNIZED DRUG - OTHER] IV SCH (16:00)
[2023-02-24] MEDS ORDERED: CENTRAL TPN IV SCH (16:00)
[2023-02-24] MEDS: MEROPENEM 500 MG in SYRINGE 0 ML IV SCH (16:34)
[2023-02-24] MEDS: QUEtiapine FUMARATE 25 MG TABLET PO SCH (20:50)
[2023-02-24] MEDS: DONEPEZIL HCL 5 MG TAB PO SCH (20:50)
[2023-02-24] MEDS: VORTIOXETINE HYDROBROMIDE 10 MG PO SCH (20:50)
[2023-02-25] MEDS: INSULIN ASPART PER UNIT CHARGE SC SCH ×6 (00:12→20:56)
[2023-02-25] MEDS: ACETAMINOPHEN 1,000 MG/100 ML VIAL IV SCH ×3 (01:04→16:08)
[2023-02-25] MEDS: DOXYCYCLINE HYCLATE 100 MG in DEXTROSE 5% MINI-B 100 ML IV SCH ×2 (01:22→13:15)
--- NOTE | 2023-02-25 06:55 | Hospitalist Progress Note ---
Date of Service February 25, 2023 Assessment & Plan (1) Elevated blood pressure reading: Plan: Pt is an 87 y/o female with PMH of DM, colon cancer, TIA (2021), dementia, chronic low back pain, CKD, and HLD presenting to the hospital for right hemicolectomy. Initial surgery 03/09. Returned to the OR . for ischemic bowel resection and ileostomy creation. #Severe Sepsis with VRE and ESBL #Leukocytosis Patient with clinical deterioration and severe sepsis starting 02/16. Likely abdominal source d/t bowel leak. Patient now s/p ischemic bowel resection with ileostomy creation 02/19. Peritoneal fluid growing VRE E. faecium and ESBL - finalized. Blood cultures NGTD x5 days. Abx adjusted as below. Continue to use caution with fluid resuscitation. Permissive hypertension acceptable as hypoperfusion would be yet another insult to her tenuous status. Antibiotics: Ceftriaxone started 02/16 - 02/17 Switched to Zosyn 02/17 Added doxycycline 02/17 for anaplasmosis coverage, stop 02/27 Added daptomycin 02/22 for VRE Switched Zosyn to ertapenem 02/23 Switched ertapenem to meropenem 02/24 #ARCELIA on CKD IV #ATN Baseline Cr ~ 1.6-1.7. Has had a significant bump in creatinine. Likely intrinsic kidney injury most likely acute tubular necrosis as FeNa 1.7%. Patient had temporary dialysis line placed and PUBLIC INFORMATION RELATIONS MANAGER performed 02/23 d/t continue oliguria and significant decrease in kidney function. Interval improvement in third spacing, mentation, and creatinine. Urine output has increased. Nephrology continues to follow Unable to use dialysis line for HD. Nephro rec d/c the line and obtain PICC for TPN. Will keep line today and attempt PICC tomorrow. #Anemia #Coagulability #Bleeding Patient with several blood transfusions this admission - last 2U 02/23. Patient at high risk of developing VTE. Is on heparin SQ BID for dvt ppx. Patient with intermittent bleeding holding heparin as indicated based on bleeding. Continue to monitor #A fib with RVR Patient without a history of atrial fibrillation. 02/20 developed a fib with RVR. Responds well to Lopressor 5 mg IV. Lopressor for HR > 120 if BP can tolerate. Heparin SQ BID for VTE ppx. Intermittently held as indicated. #Parental Nutrition Pharmacy/Dietary on board. TPn through central access. Ostomy has begun functioning. Hopefully she will be able to take PO soon and this will no longer be an issue. 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 Continue with doxycycline x 10 days. Elevated BP Asymptomatic elevated blood pressure persistently in postoperative period. While likely reactive to recent surgery and pain, given pt's age and comorbidities she likely has underlying hypertension. With patient's history of CKD IV she was started on 5 mg amlodipine. Would err on the side of caution as to avoid hypotension, hypoperfusion, and falls in this elderly patient. Holding amlodipine as patient with tenuous clinical status and recent soft BPs. Holding amlodipine Dementia Patient on Seroquel 12.5 mg and donepezil 5 mg QHS. Continue while inpatient Insulin Dependent Diabetes Mellitus SSI while hospitalized. Resume home dosing on discharge Depression Continue home vortioxetine OAB Continue home oxybutynin HLD Continue statin therapy Lines: PIV x1, central line, Vera Diet: NPO, sips and chips okay, on TPN DVT ppx: heparin BID, intermittently held for bleeding Code: full Dispo: PCU/Tele, will need rehab, has bed at [facility] Family Updated: 02/25 (2) Chronic kidney disease, stage IV (severe): (3) Anastomotic leak of intestine: (4) Atrial fibrillation with rapid ventricular response: (5) On parenteral nutrition: Admission and Anticipated Discharge Date Admission Date: February 06, 2023 Supervising Physician Co-Signing Physician Notes Resident Physician Supervision Note: I independently interviewed and examined the patient and verified the kinsey history and physical, reviewed labs and image studies and agree with resident findings and care plan. More responsive today - able to answer that she is at [facility]. Heart - regular, Lungs - clear anteriorly; abdomen - soft, dressing +, ostomy draining. Severe sepsis sec to Anastomotic leak - grew ESBL and VRE in peritoneal fluid - continue IV abx. WBC down to 19 from 20. No fever. ATN - HD catheter not working for dialysis. No dialysis today. Malnutrition - continue TPN. will try to get PICC access in am if HD catheter has to be removed per nephro recommendation. Anemia - h/h stable PT/OT eval Vera/central line/ostomy Heparin SQ for DVT proh Subjective Temporary catheter is not functioning for HD at this point. Seen in the dialysis unit - unable to perform HD. Patient with similar presentation today. Lethargic. Able to follow commands. Arouses to voice. Review of Systems 2 Review of Systems: As per HPI Physical Exam 2 Physical Exam: Gen: thin appearing elderly female, diffuse third spacing with interval improvement, no respiratory distress HEENT: AT NC MMM CV: RRR no m/r/g clinically well perfused Resp: CTAB no wheezing no increased work of breathing Abd: soft, diffusely tender, functioning ostomy in place MSK: no obvious deformities Psych: appropriate mood and affect Neuro: alert Skin: no rashes or bruising noted Results & Data Results & Data Vital Signs (Past 12 Hours) Vital Signs Temp Pulse Pulse Resp BP Pulse Ox O2 Del Method 02/25/23 02:32 36.6 C 81 20 108/76 96 Room Air 02/24/23 23:28 36.7 C 75 18 142/92 H 96 Room Air 02/24/23 23:00 80 02/24/23 21:00 Room Air 02/24/23 19:58 37.4 C 78 18 171/88 H 94 Room Air Laboratory Results 02/25/23 07:32 02/25/23 07:32 Resident Activity Tracking Resident Involvement: Resident Care Provided Care Provided: Adult Hospital Medicine
[2023-02-25] MEDS ORDERED: ALTEPLASE, RECOMBINANT 1 MG/ML 2ML VIAL INSTIL ONE (07:31)
[2023-02-25] MEDS ORDERED: ALTEPLASE, RECOMBINANT 1 MG/ML 2ML VIAL INSTIL SCH (07:45)
[2023-02-25 07:46] LABS: Hematocrit (blood only) 23.6 % (37.0-47.0); Mean Corpuscular Hemoglobin 27.3 pg (25.0-34.0); Mean Corpuscular Hgb Conc 33.9 g/dL (32.0-36.0); Mean Corpuscular Volume 80.5 fL (80.0-100.0); Mean Platelet Volume 10.6 fL (9.4-12.4); Nucleated RBC # (auto) 0.05 K/uL (0.00-0.12); Nucleated RBC % (auto) 0.3 %; Platelet Count 494 K/uL (130-400); RDW Standard Deviation 49.5 fL (36.4-46.3); Red Blood Count 2.93 M/uL (4.20-5.40); White Blood Count 19.19 K/ul (4.8-10.8)
[2023-02-25 08:03] LABS: Calcium 8.8 mg/dl (8.6-10.3); Magnesium 1.7 mg/dl (1.7-2.4); Potassium 3.9 mmol/L (3.5-5.1)
[2023-02-25] MEDS: ALTEPLASE, RECOMBINANT 1 MG/ML 2ML VIAL INSTIL SCH (08:05)
[2023-02-25] MEDS: CHOLECALCIFEROL 1,000 UNITS 25 MCG TAB PO SCH (08:19)
[2023-02-25] MEDS: ASCORBIC ACID 500 MG TAB PO SCH (08:19)
[2023-02-25] MEDS: HEPARIN SOD 5,000 UNIT/0.5 ML VIAL SQ SCH ×2 (08:19→20:57)
[2023-02-25 08:28] LABS: BUN Creatinine Ratio 21.5 (10-20); Creatinine Clr Calc Pharmacy 8.6 ml/min; Est GFR (African American) 9.1 ml/min; Est GFR (Non-African American) 7.8 ml/min; Phosphorus 4.1 mg/dl (2.5-4.9)
[2023-02-25 08:39] LABS: ALC (manual) 1.15 K/uL (1.2-3.4); ANC (manual) 15.74 K/uL (1.4-6.5); Eosinophils # (manual) 0.38 K/uL (0-0.50); Eosinophils % (manual) 2 %; Lymphocytes # (manual) 1.15 K/uL (1.2-3.4); Lymphocytes % (manual) 6 %; Metamyelocytes # (manual) 0.96 K/uL (0-0); Metamyelocytes % (manual) 5 %; Monocytes # (manual) 0.38 K/uL (0.11-0.59); Monocytes % (manual) 2 %; Myelocytes # (manual) 0.58 K/uL (0-0); Myelocytes % (manual) 3 %; Neutrophils # (manual) 15.74 K/uL (1.40-6.50); Neutrophils % (manual) 82 %; Polychromasia 1+
[2023-02-25] MEDS ORDERED: LANTUS PER UNIT CHARGE SC SCH (09:00)
[2023-02-25] MEDS: MAGNESIUM SULFATE / D5W 1 GM/100 ML BAG IV SCH ×2 (10:03→11:36)
--- NOTE | 2023-02-25 12:04 | Pharmacy Report ---
Pharmacy Glycemic Short Note 2 - Date of Service February 25, 2023 - Glycemic Short BSG Results (Last 24 hours): 02/24/23 02/24/23 02/25/23 16:12 20:12 00:01 Glucose POC Glucose 179 H 226 H 224 H 02/25/23 02/25/23 02/25/23 04:25 07:32 08:00 Glucose 203 H POC Glucose 242 H 221 H 02/25/23 11:40 Glucose POC Glucose 186 H OUTPATIENT ANTIDIABETIC REGIMEN: * Lantus 20 units SQ qPM * A1c = 8% ASSESSMENT: 02/25: * BSGs above goal the last 24h: [phone]/dL. Received 25 units of basal and 16 units of bolus insulin yesterday. * HD cath clotted - unable to dialyze today. TPN continues to run. NPO. * Lantus increased to 20 units given elevated fasting BSGs. Continued 10 units of insulin in TPN for now (unclear of future plan for PN given access issue). Novolog correctional tightened. TPN dextrose taken to goal central access (118gm CHO). 02/24: * Patient's BSGs yesterday were [phone] mg/dL. Today's AM BSGs were 240-212-146 mg/dL. * Patient did get 2 hrs of HD yesterday and planned for 3hr HD today. * Increased SC Lantus dose given persistently BSGs. However after BSG normalized at lunchtime and as patient receiving another round of HD today, will reduce the amount of insulin the TPN bag from 20 to 10. If BSGs trend up again can consider tightening NovoLog CF. * Will keep TPN macros the same today until BSGs somewhat consistently controlle d. 02/23: * Patient's blood sugars elevated again today, 0 units of insulin in PPN bag with 50 gm of dextrose * Converting to central parenteral nutrition- dextrose will increase- will add 20 units of insulin to the bag (patient was used ~19 units of correctional since resuming TPN). Adjusted checks back to q4 as this helped previously. * Resumed 10 units of lantus qAM (held 02/22 d/t NPO status and ppn held until 1600). 02/19: * Patient's blood sugars elevated with initiation of Peripheral nutrition yesterday. Increase lantus to 10 units. * Dextrose content of ppn was slightly reduced today, will add 10 units of insulin to PPN bag to help cover the dextrose * Correction factor tightened to 25. Continue to monitor 02/18: * Patient had a hypoglycemic event yesterday at lunchtime with a BSG of 63 mg/dL. Thankfully patient was asymptomatic but did require 1/2 amp of D50 to correct BSG. All insulin was held yesterday. * Patient remains NPO but fasting trended up to 131 mg/dL this AM. Likely rela skip to basal deficiency from previous day. Will order 5 units of Lantus. Novolog was loosened yesterday. Continue to trend postprandials and will adjust this afternoon if needed. 02/16: * BSGs have been reasonably well-controlled over past 72 hours, but hyperglycemic trend at lunch noted * Will tighten AM Novolog parameters this morning * Fasting BSG of 116 mg/dL this morning - continue current basal * Possible d/c to [facility] today 02/11: * Keren received 6 units of bolus insulin yesterday. * Diet has advanced today, she is tolerating more carbohydrates. * Fasting BSG elevated this AM, Lantus given at ~0.15 units/kg with Lunch * Mealtime BSGs have been slightly elevated, tighten goal range and carbohydrate coverage 02/09: * Keren did not receive any insulin yesterday * She continues on a clear liquid diet, anticipate higher need for insulin once diet advances. * Continue Novolog at weight based stress of 2 with increase goal range until diet advanced to prevent hypoglycemia. 02/08: * Keren is a 87 yo T2DM s/p open right hemicolectomy * Tolerating clear liquid diet per surgery. No nausea or vomiting. * Patient received Lantus 10 units on 02/06. This was reduced to 8 units on 02/07. Fasting continues to trend downward and was below goal this am at 70 mg/dL. Will hold further basal insulin for now. * Continue weight based Novolog for now (~stress 2) PLAN FOR INPATIENT GLYCEMIC CONTROL: * Basal insulin * Lantus 20 units SC daily * Bolus insulin * NovoLog per scale ACHS or Q4hrs while NPO * Goal Range: Low 110 mg/dL - High 140 mg/dL * Correction Factor: 10 mg/dL/unit * TPN: 10 units regular insulin 10 units of regular insulin added to parenteral nutrition.
--- NOTE | 2023-02-25 12:24 | Nephrology Progress Note ---
Date of Service February 25, 2023 Assessment & Plan (1) Acute kidney injury: (2) Anemia: (3) Chronic kidney disease, stage IV (severe): (4) Anastomotic leak of intestine: Plan 87 year old F with h/o CKD stage G3A b/l cr 1.1-1.3 mg/dl, AODM, hyperlipidemia, osteoporosis and prior h/o TIA, recent Dx of adenocarcinoma of the colon s/p R open hemicolectomy 02/06/23. On post-op day #10 developed a fever, CT A/P w/ IV contrast was negative for obstruction or anastomotic leak, fever continues despite broad spectrum antibiotics. 02/19/23 CXR revealed pneumoperitoneum. Exploratory laparotomy revealed an anastomotic leak/perforation and had resection of the anastomosis w/ creation of an end ileostomy. Cr was 1.3 on 02/16/23 and has been rising sharply over last 1 week, cr 5.6 this morning. UO 75 ml over last 5 h, positive >1 L last 24 h. On Zosyn and Doxycycline. BP fair. Respiratory status acceptable Hb 6.4. Had temporary dialysis catheter on 02/24/2023 and started on dialysis for progressive worsening of renal function with oligoanuria. Had 2 hours dialysis Thursday however, since then catheter has not been working. Fortunately she has been having more urine output, more than 1 L each day. BUN/creatinine staying about the same without dialysis last 2 days, electrolyte acceptable. --Remove temporary dialysis catheter. Continue to monitor urine output, renal function and electrolytes. If dialysis is needed, will request general surgery to place a tunneled dialysis catheter otherwise we will continue to monitor closely for recovery of renal function. -- Dose medications for eGFR less than 10, avoid all nephrotoxic medications. Admission and Anticipated Discharge Date Admission Date: February 06, 2023 Junior Veliz was seen and evaluated this morning. She remained lethargic, responded minimally but denied any specific symptoms. BP improved. Right IJ temporary dialysis catheter has not been working. She had only 2 hours dialysis Thursday. However, looks like urine output started to improve over last 2 days she has been making more than a liter of urine each day. BUN and creatinine staying stable without any further increase without dialysis last 2 days. Electrolyte has been acceptable. Review of Systems Review of Systems: detail ROS was not possible. Physical Exam Constitutional: WD/WN, vitals as above + ill appearing and + lethargic; no acute distress Eyes: + anicteric sclerae Neck: normal visual inspection Cardiovascular: Rate/Rhythm: regular rate and regular rhythm Heart Sounds: normal S1 and normal S2 Extremities: + edema Neurologic: no focal motor deficits Results & Data Vital Signs (Past 12 Hours) Vital Signs Temp Pulse Pulse Resp BP Pulse Ox O2 Del Method 02/25/23 09:00 70 02/25/23 09:00 Room Air 02/25/23 07:37 36.8 C 76 18 118/66 98 Room Air 02/25/23 02:32 36.6 C 81 20 108/76 96 Room Air PG Care Time/CCT Total # of Minutes Spent Total Time Spent with Patient: Total time spent is greater than 50% in coordination of care (as documented) at patient's floor/unit and/or counseling patient: Coding Level of Care Code 05410 SUB INP/OBS CARE 3/50MIN Diagnoses Acute kidney injury N17.9 Anemia D64.9 Anemia type: unspecified type Chronic kidney disease, stage IV (severe) N18.4 Anastomotic leak of intestine K91.89 (2) Anemia Anemia type: unspecified type Qualified Code(s): D64.9 - Anemia, unspecified
--- NOTE | 2023-02-25 13:58 | Surgery Progress Note ---
Date of Service February 25, 2023 Assessment & Plan (1) Anastomotic leak of intestine: Plan: Please do not remove right internal jugular catheter as needed is for TPN. Appreciate nephrology help. Hopefully her mentation will improve so we can obtain a speech and swallowing eval and at some point initiating oral intake. Admission and Anticipated Discharge Date Admission Date: February 06, 2023 Subjective Patient seen. Case discussed with her nurse. No acute changes past 24 hours. Her vital signs have remained stable. Renal function has remained stable despite hemodialysis. She is currently receiving TPN through her right internal jugular hemodialysis catheter. She does awaken to stimuli but is very sedate and quickly falls back asleep. She does not appear to be in pain. Physical Exam Physical Exam: Abdomen is soft. Ileostomy looks good with good output. Continue to pack midline incision Results & Data Vital Signs (Past 12 Hours) Vital Signs Temp Pulse Pulse Resp BP Pulse Ox O2 Del Method 02/25/23 09:00 70 02/25/23 09:00 Room Air 02/25/23 07:37 36.8 C 76 18 118/66 98 Room Air 02/25/23 02:32 36.6 C 81 20 108/76 96 Room Air PG Care Time/CCT Total # of Minutes Spent Total Time Spent with Patient: Total time spent is greater than 50% in coordination of care (as documented) at patient's floor/unit and/or counseling patient: Coding Level of Care Code 30403 Post Operative Follow-Up Diagnoses Anastomotic leak of intestine K91.89
[2023-02-25] MEDS ORDERED: CENTRAL TPN IV SCH (16:00)
[2023-02-25] MEDS ORDERED: [UNRECOGNIZED DRUG - OTHER] IV SCH (16:00)
[2023-02-25] MEDS ORDERED: CLINOLIPID 20% IV FAT EMULSION 250 ML IV SCH (16:00)
[2023-02-25] MEDS: MEROPENEM 500 MG in SYRINGE 0 ML IV SCH (16:03)
[2023-02-25 16:13] LABS: Hematocrit (blood only) 23.4 % (37.0-47.0); Hemoglobin 7.7 g/dl (12.0-16.0)
[2023-02-25 21:13] LABS: Hematocrit (blood only) 22.4 % (37.0-47.0); Hemoglobin 7.5 g/dl (12.0-16.0); Mean Corpuscular Hgb Conc 33.5 g/dL (32.0-36.0); Mean Corpuscular Volume 83.6 fL (80.0-100.0); Mean Platelet Volume 11.1 fL (9.4-12.4); Nucleated RBC # (auto) 0.06 K/uL (0.00-0.12); Nucleated RBC % (auto) 0.2 %; Platelet Count 579 K/uL (130-400); RDW Coefficient of Variation 17.5 % (11.5-14.5); RDW Standard Deviation 53.9 fL (36.4-46.3); Red Blood Count 2.68 M/uL (4.20-5.40); White Blood Count 24.38 K/ul (4.8-10.8)
[2023-02-25] MEDS: QUEtiapine FUMARATE 25 MG TABLET PO SCH (21:38)
[2023-02-25] MEDS: VORTIOXETINE HYDROBROMIDE 10 MG PO SCH (21:38)
[2023-02-25] MEDS: DONEPEZIL HCL 5 MG TAB PO SCH (21:38)
[2023-02-25] MEDS: HYDROmorphone INJ 1 MG/ML SYRINGE IV PRN (21:54)
[2023-02-25] MEDS ORDERED: STOP CLINOLIPID SCH (22:00)
[2023-02-25 22:03] LABS: Albumin Globulin Ratio 0.8 (0.9-2); Albumin Level 2.4 gm/dl (3.4-5.0); BUN Creatinine Ratio 22.2 (10-20); Bilirubin,Total 0.6 mg/dl (0.2-1.0); Creatinine Clr Calc Pharmacy 8.1 ml/min; Est GFR (African American) 8.5 ml/min; Est GFR (Non-African American) 7.3 ml/min; Potassium 3.9 mmol/L (3.5-5.1); Total Protein 5.4 gm/dl (6.0-8.3)
[2023-02-25 23:55] LABS: ALC (manual) 1.71 K/uL (1.2-3.4); ANC (manual) 17.55 K/uL (1.4-6.5); Eosinophils # (manual) 0.98 K/uL (0-0.50); Eosinophils % (manual) 4 %; Lymphocytes # (manual) 1.71 K/uL (1.2-3.4); Lymphocytes % (manual) 7 %; Metamyelocytes # (manual) 0.98 K/uL (0-0); Metamyelocytes % (manual) 4 %; Monocytes # (manual) 2.19 K/uL (0.11-0.59); Monocytes % (manual) 9 %; Myelocytes # (manual) 0.98 K/uL (0-0); Myelocytes % (manual) 4 %; Neutrophils # (manual) 17.55 K/uL (1.40-6.50); Neutrophils % (manual) 72 %
[2023-02-25 23:57] LABS: Echinocytes 1+; Polychromasia 1+
[2023-02-26] MEDS: INSULIN ASPART PER UNIT CHARGE SC SCH ×6 (00:19→21:20)
[2023-02-26] MEDS: ACETAMINOPHEN 1,000 MG/100 ML VIAL IV SCH ×3 (00:19→19:30)
[2023-02-26] MEDS: DOXYCYCLINE HYCLATE 100 MG in DEXTROSE 5% MINI-B 100 ML IV SCH ×2 (00:48→19:35)
[2023-02-26 06:38] LABS: Hematocrit (blood only) 19.3 % (37.0-47.0); Hemoglobin 6.4 g/dl (12.0-16.0); Mean Corpuscular Hemoglobin 27.2 pg (25.0-34.0); Mean Corpuscular Hgb Conc 33.2 g/dL (32.0-36.0); Mean Corpuscular Volume 82.1 fL (80.0-100.0); Mean Platelet Volume 11.1 fL (9.4-12.4); Nucleated RBC # (auto) 0.09 K/uL (0.00-0.12); Nucleated RBC % (auto) 0.4 %; Platelet Count 524 K/uL (130-400); RDW Coefficient of Variation 17.7 % (11.5-14.5); Red Blood Count 2.35 M/uL (4.20-5.40); White Blood Count 23.39 K/ul (4.8-10.8)
[2023-02-26 06:52] LABS: Albumin Level 2.3 gm/dl (3.4-5.0); BUN Creatinine Ratio 23.6 (10-20); Calcium 8.8 mg/dl (8.6-10.3); Creatinine Clr Calc Pharmacy 7.9 ml/min; Est GFR (African American) 8.5 ml/min; Est GFR (Non-African American) 7.3 ml/min; Magnesium 2.1 mg/dl (1.7-2.4); Phosphorus 4.4 mg/dl (2.5-4.9); Potassium 3.8 mmol/L (3.5-5.1)
[2023-02-26] MEDS ORDERED: SODIUM CHLORIDE 0.9% 250 ML IV PRN (07:11)
[2023-02-26 07:15] LABS: Basophils # (auto) 0.04 K/uL (0.00-0.20); Basophils % (auto) 0.2 %; Eosinophils # (auto) 0.34 K/uL (0.00-0.50); Eosinophils % (auto) 1.5 %; Immature Granulocytes # (auto) 2.03 K/uL (0.01-0.20); Immature Granulocytes % (auto) 8.7 %; Lymphocytes # (auto) 1.35 K/uL (1.20-3.40); Lymphocytes % (auto) 5.8 %; Monocytes % (auto) 5.6 %; Neutrophils # (auto) 18.33 K/uL (1.40-6.50); Neutrophils % (auto) 78.2 %; Polychromasia 1+
[2023-02-26] MEDS: ASCORBIC ACID 500 MG TAB PO SCH (07:29)
[2023-02-26] MEDS: CHOLECALCIFEROL 1,000 UNITS 25 MCG TAB PO SCH (07:29)
--- NOTE | 2023-02-26 07:46 | Electrocardiogram Report ---
Test Reason : Blood Pressure : / mmHG Vent. Rate : 087 BPM Atrial Rate : 087 BPM P-R Int : 146 ms QRS Dur : 116 ms QT Int : 398 ms P-R-T Axes : 077 084 002 degrees QTc Int : 478 ms Normal sinus rhythm Incomplete right bundle branch block Abnormal ECG When compared with ECG of 20-FEB-2023 19:42, Incomplete right bundle branch block has replaced Right bundle branch block Confirmed by Todd Gibson ([id number] on 02/26/2023 7:45:51 AM Referred By: Javier Mary Confirmed By:Todd Gibson
[2023-02-26] MEDS ORDERED: ALTEPLASE, RECOMBINANT 1 MG/ML 2ML VIAL INSTIL SCH (07:50)
--- NOTE | 2023-02-26 08:02 | Hospitalist Progress Note ---
Date of Service February 26, 2023 Assessment & Plan (1) Elevated blood pressure reading: Plan: Pt is an 87 y/o female with PMH of DM, colon cancer, TIA (2021), dementia, chronic low back pain, CKD, and HLD presenting to the hospital for right hemicolectomy. Initial surgery 02/06. Returned to the OR 02/19 for ischemic bowel resection and ileostomy creation. #Severe Sepsis with VRE and ESBL #Leukocytosis Patient with clinical deterioration and severe sepsis starting 02/16. Likely abdominal source d/t bowel leak. Patient now s/p ischemic bowel resection with ileostomy creation 02/19. Peritoneal fluid growing VRE E. faecium and ESBL - finalized. Blood cultures NGTD x5 days. Abx adjusted as below. Continue to use caution with fluid resuscitation. Permissive hypertension acceptable as hypoperfusion would be yet another insult to her tenuous status. Antibiotics: Ceftriaxone started 02/16 - 02/17 Switched to Zosyn 02/17 Added doxycycline 02/17 for anaplasmosis coverage, stop 02/27 Added daptomycin 02/22 for VRE Switched Zosyn to ertapenem 02/23 Switched ertapenem to meropenem 02/24 #ARCELIA on CKD IV #ATN Baseline Cr ~ 1.6-1.7. Has had a significant bump in creatinine. Likely intrinsic kidney injury most likely acute tubular necrosis as FeNa 1.7%. Patient had temporary dialysis line placed and DEVELOPMENT INTERN performed 02/23 d/t continue oliguria and significant decrease in kidney function. Unable to perform HD 02/24 or 02/25 due to dysfunction of temporary dialysis line. Tunneled dialysis catheter placed 02/26. DEVELOPMENT INTERN performed 02/26. Nephrology continues to follow. #Anemia #Coagulability #Bleeding #Heme Positive Stool Patient with some degree of GI bleed as hemoglobin continues to drop intermittently. Not a candidate for scope at this time. Started on pantoprazole BID. Patient with several blood transfusions this admission - last 2U 02/26. Patient at high risk of developing VTE. Is on heparin SQ BID for dvt ppx. Patient with intermittent bleeding holding heparin as indicated based on bleeding. Continue to monitor #A fib with RVR Patient without a history of atrial fibrillation. 02/20 developed a fib with RVR. Responds well to Lopressor 5 mg IV. Lopressor for HR > 120 if BP can tolerate. Heparin SQ BID for VTE ppx. Intermittently held as indicated. #Parental Nutrition Pharmacy/Dietary on board. TPn through central access. Ostomy has begun functioning. Hopefully she will be able to take PO soon and this will no longer be an issue. 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 Continue with doxycycline x 10 days. Elevated BP Asymptomatic elevated blood pressure persistently in postoperative period. While likely reactive to recent surgery and pain, given pt's age and comorbidities she likely has underlying hypertension. With patient's history of CKD IV she was started on 5 mg amlodipine. Would err on the side of caution as to avoid hypotension, hypoperfusion, and falls in this elderly patient. Holding amlodipine as patient with tenuous clinical status and recent soft BPs. Holding amlodipine Dementia Patient on Seroquel 12.5 mg and donepezil 5 mg QHS. Continue while inpatient Insulin Dependent Diabetes Mellitus SSI while hospitalized. Resume home dosing on discharge Depression Continue home vortioxetine OAB Continue home oxybutynin HLD Continue statin therapy Code Status: Patient does have a living will stating DNR/DNI etc. This does not currently apply as patient presented for elective procedure. Full code in the setting of complications from recent procedure. Lines: PIV x1, tunneled dialysis catheter, Vera Diet: NPO, sips and chips okay, on TPN DVT ppx: heparin BID, intermittently held for bleeding Dispo: PCU/Tele, will need rehab, has bed at [facility] Family Updated: 02/25 (2) Chronic kidney disease, stage IV (severe): (3) Anastomotic leak of intestine: (4) Atrial fibrillation with rapid ventricular response: (5) On parenteral nutrition: Admission and Anticipated Discharge Date Admission Date: February 06, 2023 Supervising Physician Co-Signing Physician Notes Resident Physician Supervision Note: I independently interviewed and examined the patient and verified the kinsey history and physical, reviewed labs and image studies and agree with resident findings and care plan. Mentation same as yesterday - appropriately responsive Heart - regular, Lungs - clear anteriorly; abdomen - soft, dressing +, ostomy draining - stool dark greenish. Severe sepsis sec to Anastomotic leak - grew ESBL and VRE in peritoneal fluid - continue IV abx. WBC higher - 23k. No fever. Anemia - 2 points drop. 2PRBC today. follow h/h Holding heparin SQ tonight. Reassess in am. Heme positive stool - monitor h/h. add protonix. consider GI consult ATN - creatinine higher - tunnel cath today followed by 2 hr dialysis. Malnutrition - continue TPN. Assess for PT/OT in am Vera/central line/ostomy Heparin SQ for DVT proh Subjective Seen at bedside this AM. More interactive. No meaningful history obtained. Patient desaturated overnight. Then coughed up some large ball of ?fluid/tissue overnight and oxygenation returned to normal. Review of Systems 2 Review of Systems: As per HPI Physical Exam 2 Physical Exam: Gen: thin appearing elderly female, third spacing has improved, no respiratory distress HEENT: AT NC MMM CV: RRR no m/r/g clinically well perfused Resp: CTAB no wheezing no increased work of breathing Abd: soft, diffusely tender, functioning ostomy in place MSK: no obvious deformities Psych: appropriate mood and affect Neuro: alert Skin: no rashes or bruising noted Results & Data Results & Data Vital Signs (Past 12 Hours) Vital Signs Temp Pulse Pulse Pulse Resp BP BP 02/26/23 07:37 36.2 C L 74 18 162/86 H 02/26/23 05:00 36.0 C L 69 19 133/77 02/25/23 23:57 81 02/25/23 23:00 36.9 C 77 15 137/76 02/25/23 21:38 Pulse Ox O2 Del Method 02/26/23 07:37 97 Room Air 02/26/23 05:00 97 Room Air 02/25/23 23:57 02/25/23 23:00 97 Room Air 02/25/23 21:38 Room Air Laboratory Results 02/26/23 05:59 02/26/23 05:59 Resident Activity Tracking Resident Involvement: Resident Care Provided Care Provided: Adult Hospital Medicine
[2023-02-26] MEDS: LANTUS PER UNIT CHARGE SC SCH (10:29)
--- NOTE | 2023-02-26 10:39 | Nephrology Progress Note ---
Date of Service February 26, 2023 Assessment & Plan (1) Acute kidney injury: (2) Anemia: (3) Chronic kidney disease, stage IV (severe): (4) Anastomotic leak of intestine: Plan 87 year old F with h/o CKD stage G3A b/l cr 1.1-1.3 mg/dl, AODM, hyperlipidemia, osteoporosis and prior h/o TIA, recent Dx of adenocarcinoma of the colon s/p R open hemicolectomy 02/06/23. On post-op day #10 developed a fever, CT A/P w/ IV contrast was negative for obstruction or anastomotic leak, fever continues despite broad spectrum antibiotics. 02/19/23 CXR revealed pneumoperitoneum. Exploratory laparotomy revealed an anastomotic leak/perforation and had resection of the anastomosis w/ creation of an end ileostomy. Cr was 1.3 on 02/16/23 and has been rising sharply over last 1 week, cr 5.6 this morning. UO 75 ml over last 5 h, positive >1 L last 24 h. On Zosyn and Doxycycline. BP fair. Respiratory status acceptable Hb 6.4. Had temporary dialysis catheter on 02/24/2023 and started on dialysis for progressive worsening of renal function with oligoanuria. Had 2 hours dialysis Thursday however, since then catheter has not been working. Fortunately she has been having more urine output, more than 1 L each day. BUN/creatinine staying about the same without dialysis last 2 days, electrolyte acceptable. Urine output dropped again, no improvement in renal function, blood pressure remains elevated. --Plan for tunneled dialysis catheter daily this afternoon and then 2 hours dialysis we will try to do at least a liter UF. -- Dose medications for eGFR less than 10, avoid all nephrotoxic medications. Admission and Anticipated Discharge Date Admission Date: February 06, 2023 Junior Veliz was seen and evaluated this morning. She was much more awake and alert today, responded appropriately, answered questions. Complain of feeling thirsty, denies any other specific symptoms. Urine output dropped again, no improvement in renal function. Blood pressure remains elevated. Review of Systems Review of Systems: detail ROS was otherwise unremarkable. Physical Exam Constitutional: WD/WN, vitals as above + ill appearing and + lethargic; no acute distress Eyes: + anicteric sclerae Neck: normal visual inspection Cardiovascular: Rate/Rhythm: regular rate and regular rhythm Heart Sounds: normal S1 and normal S2 Extremities: + edema Neurologic: no focal motor deficits Results & Data Vital Signs (Past 12 Hours) Vital Signs Temp Pulse Pulse Pulse Resp BP BP 02/26/23 10:13 02/26/23 10:09 36.6 C 72 18 183/84 H 02/26/23 09:39 36.7 C 74 18 181/80 H 02/26/23 09:24 36.7 C 74 18 176/72 H 02/26/23 09:08 36.6 C 71 18 156/106 H 02/26/23 07:37 36.2 C L 74 18 162/86 H 02/26/23 05:00 36.0 C L 69 19 133/77 02/25/23 23:57 81 02/25/23 23:00 36.9 C 77 15 BP Pulse Ox O2 Del Method 02/26/23 10:13 Room Air 02/26/23 10:09 97 02/26/23 09:39 96 02/26/23 09:24 95 02/26/23 09:08 95 02/26/23 07:37 97 Room Air 02/26/23 05:00 97 Room Air 02/25/23 23:57 02/25/23 23:00 137/76 97 Room Air PG Care Time/CCT Total # of Minutes Spent Total Time Spent with Patient: Total time spent is greater than 50% in coordination of care (as documented) at patient's floor/unit and/or counseling patient: Coding Level of Care Code 57699 SUB INP/OBS CARE 2/35MIN Diagnoses Acute kidney injury N17.9 Anemia D64.9 Anemia type: unspecified type Chronic kidney disease, stage IV (severe) N18.4 Anastomotic leak of intestine K91.89 (2) Anemia Anemia type: unspecified type Qualified Code(s): D64.9 - Anemia, unspecified
[2023-02-26] MEDS ORDERED: PANTOprazole 40 MG in SYRINGE 0 ML IV SCH (11:00)
[2023-02-26] MEDS: DAPTOmycin 600 MG in SYRINGE 0 ML IV SCH (11:33)
[2023-02-26] MEDS: HYDROmorphone INJ 0.5 MG/0.5 ML SYR IV PRN (11:33)
[2023-02-26] MEDS ORDERED: LIDOCAINE 1% LOCAL 20 ML VIAL ONE (12:44)
[2023-02-26] MEDS ORDERED: HEPARIN SOD (PORCINE) 5,000 UNITS/ML VIAL ONE (12:45)
--- NOTE | 2023-02-26 13:18 | History & Physical Bridge Note ---
Date of Service February 26, 2023 History & Physical Bridge Note I have examined the patient, reviewed the History & Physical and in the interval since the performance of the History & Physical. Requested by nephrology to place a tunneled permacath. Patient unable to give consent. Spoke with patient's daughter Pamela Yancey. States we discussed a likely internal jugular or subclavian tunneled permacath as well as placement of a triple-lumen catheter for ongoing support and fluid administration, transfustions lab work etc. We discussed potential risks which include bleeding infection pneumothorax vascular injury clotting etc. I answered all of her questions. She is agreeable. We will proceed today with placement of a tunneled permacath for dialysis as well as a triple-lumen catheter for better IV access.
--- NOTE | 2023-02-26 13:33 | Anesthesiology Consultation ---
Date of Service February 26, 2023 Assessment & Plan Chart Review Chart Review: Acceptable Risk for Surgery and Patient NOT seen in Pre Admission Testing Consults Requested none History Surgery Operation Date: 02/06/23 12:00 Proposed Procedures p Open Left Hemicolectomy - aJvier Mary, Operation Date: 02/19/23 07:50 Proposed Procedures p Exploratory Laparotomy, Possible Bowel Resection, Possible Osteotomy - Parviz Keenan, DO Operation Date: 02/26/23 12:30 Proposed Procedures p Right Jugular Tunneled Perm Catheter Placement - Javier Mary, DO Height/Weight Height: 5 ft 4.5 in Weight: 75 kg Allergies Allergy/AdvReac Type Severity Reaction Status Date / Time adhesive tape AdvReac Mild SKIN Verified 02/23/23 22:26 IRRITATION (BANDAIDS) Medications Home Medications Medication Instructions Recorded Confirmed Last Taken donepezil 5 mg tablet (Aricept) 5 mg PO HS 10/19/18 02/06/23 02/04/23 latanoprost 0.005 % eye drops 1 drp OPB HS 10/19/18 02/06/23 02/05/23 23:00 quetiapine 25 mg tablet (Seroquel) 12.5 mg PO HS 10/19/18 02/06/23 02/04/23 blood-glucose meter #1 ea 09/14/20 01/29/23 Unknown acetaminophen 500 mg capsule 1,000 mg PO BID PRN Pain 11/08/21 02/06/23 02/04/23 Wheeled Walker #1 ea 03/28/22 01/28/23 Unknown ascorbic acid (vitamin C) 500 mg 500 mg PO QAM 05/29/22 02/06/23 02/05/23 08:00 capsule vortioxetine 10 mg tablet 10 mg PO HS 05/29/22 02/06/23 02/04/23 (Trintellix) omega-3 acid ethyl esters 1 gram 1 cap PO BID 08/08/22 02/06/23 02/04/23 capsule BD Ultra-Fine Sheri Pen Needle 32 #100 ea 09/01/22 01/29/23 Unknown gauge x 5/32" (pen needle, diabetic) ferrous sulfate 325 mg (65 mg 325 mg PO Q2D 10/03/22 02/06/23 02/04/23 iron) tablet meclizine 25 mg tablet 25 mg PO TID PRN dizziness or 10/03/22 02/06/23 01/11/23 vertigo #10 tabs oxybutynin chloride 10 mg 10 mg PO QAM #90 tabs 10/20/22 02/06/23 02/04/23 tablet,extended release 24 hr cholecalciferol (vitamin D3) 50 50 mcg PO QAM 11/27/22 02/06/23 02/05/23 08:00 mcg (2,000 unit) capsule calcium 600 mg capsule 600 mg PO QAM 01/06/23 02/06/23 02/05/23 08:00 vit C 250 mg-vit E 90 mg-zinc 40 1 tab PO QPM 01/06/23 02/06/23 02/05/23 20:00 mg-copper 1 [id number] capsule (PreserVision AREDS-2) rosuvastatin 10 mg tablet 10 mg PO QAM 01/29/23 02/06/23 02/04/23 aspirin 81 mg tablet 81 mg PO DAILY 02/06/23 02/06/23 02/04/23 clopidogrel 75 mg tablet (Plavix) 75 mg PO QAM 02/06/23 02/06/23 01/07/23 darbepoetin bao in polysorbat 60 60 mcg subcut .q2wks 02/06/23 02/06/23 01/23/23 mcg/mL in polysorbate injection (Aranesp) insulin glargine 100 unit/mL (3 18 unit (0.18 mL) subcut QPM #30 mL 02/13/23 Unknown mL) subcutaneous pen (Lantus Solostar U-100 Insulin) Active Medications Generic Name Dose Route Start Last Admin Trade Name Freq PRN Reason Stop Dose Admin Amlodipine Besylate 5 mg 02/14/23 09:00 02/18/23 08:43 Amlodipine Besylate 5 Mg Tab PO 03/16/23 08:59 5 mg QAM FANNIE Administration Ascorbic Acid 500 mg 02/07/23 09:00 02/26/23 07:29 Ascorbic Acid 500 Mg Tab PO 03/09/23 08:59 Not Given QAM FANNIE Clopidogrel Bisulfate 75 mg 02/12/23 09:00 02/16/23 08:10 Clopidogrel Bisulfate 75 Mg Tab PO 03/14/23 08:59 75 mg QAM FANNIE Administration Dextrose 25 - 50 ml 02/06/23 16:29 02/17/23 12:00 Dextrose 50% 50 Ml Syringe IV 03/08/23 16:28 25 ml UD PRN Administration Hypoglycemia Protocol Protocol Donepezil HCl 5 mg 02/06/23 21:00 02/25/23 21:38 Donepezil Hcl 5 Mg Tab PO 03/08/23 20:59 Not Given HS FANNIE Heparin Sodium (Porcine) 5,000 units 02/14/23 21:00 02/25/23 20:57 Heparin Sod 5,000 Unit/0.5 Ml Vial SQ 03/16/23 20:59 5,000 units Q12 FANNIE Administration Hydromorphone HCl 0.5 mg 02/23/23 21:39 02/26/23 11:33 Hydromorphone Inj 0.5 Mg/0.5 Ml Syr IV 03/06/23 18:15 0.5 mg Q3H PRN Administration Pain 5,6,7 Hydromorphone HCl 1 mg 02/23/23 21:39 02/25/23 21:54 Hydromorphone Inj 1 Mg/Ml Syringe IV 03/06/23 18:15 1 mg Q3H PRN Administration Pain 8,9,10 Promethazine HCl 6.25 mg/ 50.25 mls @ 201 mls/hr 02/06/23 14:20 02/10/23 21:52 Sodium Chloride IV 03/08/23 14:19 Infused Q6H PRN Infusion Nausea And Vomiting Doxycycline Hyclate 100 mg/ 100 mls @ 50 mls/hr 02/17/23 11:30 02/26/23 02:48 Dextrose IV 03/03/23 11:29 Infused Q12H FANNIE Infusion Daptomycin 600 mg/ Syringe 12 mls @ 6 mls/min 02/24/23 12:00 02/26/23 11:33 IV 03/06/23 11:59 6 mls/min Q48H FANNIE Administration Protocol Acetaminophen 1,000 mg in 100 mls @ 400 mls/hr 02/24/23 09:00 02/26/23 09:15 Ofirmev IV 02/27/23 08:29 Infused Q8H FANNIE Infusion Meropenem 500 mg/ Syringe 10 mls @ 2 mls/min 02/24/23 16:00 02/25/23 16:03 IV 03/05/23 15:59 2 mls/min TODAY@1600 FANNIE Administration Protocol Amino Acids/Dextrose 908 ml/ 908 mls @ 37.8 mls/hr 02/25/23 16:00 02/25/23 16:00 Nutrition (Parenteral) IV 02/26/23 15:59 37.8 mls/hr .Q24H FANNIE Administration Protocol Insulin Aspart 0 units 02/23/23 12:00 02/26/23 08:52 Insulin Aspart Per Unit Charge SC 03/24/23 07:59 3 units Q4 FANNIE Administration Protocol Insulin Glargine 15 units 02/26/23 09:15 02/26/23 10:29 Lantus Per Unit Charge SC 03/28/23 09:14 15 units DAILY FANNIE Administration Protocol Quetiapine Fumarate 12.5 mg 02/06/23 21:00 02/25/23 21:38 Quetiapine Fumarate 25 Mg Tablet PO 03/08/23 20:59 Not Given HS FANNIE Vitamin D 2,000 units 02/07/23 09:00 02/26/23 07:29 Cholecalciferol 1,000 Units 25 Mcg Tab PO 03/09/23 08:59 Not Given QAM FANNIE Vortioxetine 1 each 02/18/23 21:00 02/25/23 21:38 Vortioxetine Hydrobromide 10 Mg Tablet (Trintellix) PO 03/20/23 20:59 Not Given HS FANNIE NPO Date Last Intake of Fluids: 02/18/23 Time Last Intake of Fluids: 23:00 Last Intake of Fluids Comment: sip water Date Last Intake of Solids: 02/18/23 Time Last Intake of Solids: 23:00 Last Intake of Solids Comment: patient has been npo for days, she is on tpn Past Medical History Medical History (Updated 02/21/23 @ 10:54 by Odalis Edwards MD) Memory change Pt verbalized she has come trouble remembering things Colon cancer new dx Diabetes mellitus, type 2 IDDM TIA (transient ischemic attack) (01/2022) no residual effects>beginning of 2022>? reason for plavix Dementia Chronic low back pain Cervical spinal stenosis Lumbar facet joint syndrome Retinal vein occlusion Cervicalgia Lumbar spondylosis Anemia has been getting procrit injections every 2 weeks w/iron infusions and blood transfusion summer 2022 Urinary incontinence Osteoporosis Nontoxic multinodular goiter Mixed conductive and sensorineural hearing loss Hyperlipidemia Glaucoma Diabetic nephropathy Depression Chronic kidney disease, stage IV (severe) Past Family History Family History Brother Bone cancer Father , @AGE 64 Cardiac disorder Family history of deafness or hearing loss Hypertension Myocardial infarction, Onset Age: 64 Mother Family history of deafness or hearing loss Pancreatic cancer Aunt Breast cancer Denies family history of Family history of bleeding disorder Ovarian cancer Prostate cancer Adverse anesthesia outcome Colorectal cancer Past Surgical History Surgical History (Updated 02/23/23 @ 12:23 by Sruthi Rodríguez RN) H/O exploratory laparotomy (02/19/23) Exploratory Laparotomy, Resection of Ileocolonic anastomosis, partial omentectomy, small bowel resection, creation of end ileostomy(Not Applicable) - Parviz Keenan DO H/O right hemicolectomy (02/06/23) Open Right Hemicolectomy(Right) - Javier Mary, History of esophagogastroduodenoscopy (EGD) Slow to wake up after anesthesia Hx of bladder repair surgery Hx of colonoscopy History of total abdominal hysterectomy SECONDARY TO PROLAPSED UTERUS History of repair of rotator cuff rt History of repair of rectocele History of cataract surgery rt/left Social History Smoking Status: Never smoker Do You Dip or Chew Tobacco: No Hx Alcohol Use: No alcohol intake frequency: other Hx Substance Use: No substance use type: does not use Physical Exam Vital Signs Last Vital Signs Temp 36.3 C L 02/26/23 13:17 Pulse 72 02/26/23 13:17 Resp 16 02/26/23 13:17 BP 201/72 H 02/26/23 13:17 Pulse Ox 99 02/26/23 13:17 O2 Del Method Room Air 02/26/23 12:43 O2 Flow Rate 1 02/21/23 23:03 Testing Laboratory Results 02/26/23 05:59 02/26/23 05:59 PT 11.4 Seconds (9.0-12.0) 02/24/23 05:33 INR 1.0 (0.9-1.1) 02/24/23 05:33 APTT 25.6 Seconds (21.0-31.0) 02/24/23 05:33 Urine Color Yellow 02/21/23 Unknown Urine Appearance Cloudy (Clear) A 02/21/23 Unknown Urine pH 5.5 (4.5-7.5) 02/21/23 Unknown Ur Specific [place] 1.013 (1.000-1.030) 02/21/23 Unknown Urine Protein 1+ (Negative) H 02/21/23 Unknown Urine Glucose (UA) Negative (Negative) 02/21/23 Unknown Urine Ketones Negative (Negative) 02/21/23 Unknown Urine Nitrite Negative (Negative) 02/21/23 Unknown Ur Leukocyte Esterase Trace (Negative) H 02/21/23 Unknown Urine WBC (Auto) 10-30 /hpf (0-5) H 02/21/23 Unknown Urine RBC (Auto) 0-4 /hpf (0-4) 02/21/23 Unknown U Hyaline Cast (Auto) 5-10 /lpf (0-5) H 02/21/23 Unknown U Epithel Cells (Auto) >30 /lpf (0-5) H 02/21/23 Unknown Urine Bacteria (Auto) 1+ (Negative) H 02/21/23 Unknown Blood Type O Positive 02/26/23 07:20 Antibody Screen NEGATIVE 02/26/23 07:20 02/19/23 13:09 Gram Stain - Final Peritoneal Fluid Aerobic and Anaerobic Culture - Final Escherichia coli ESBL Enterococcus faecium VRE 02/16/23 09:08 Aerobic Blood Culture - Final Blood No growth in Aerobic bottle after 5 days. Anaerobic Blood Culture - Final No growth in Anaerobic bottle after 5 days. 02/16/23 09:08 Aerobic Blood Culture - Final Blood No growth in Aerobic bottle after 5 days. Anaerobic Blood Culture - Final No growth in Anaerobic bottle after 5 days. 02/16/23 Unknown Urine Culture - Final Urine,Clean Catch Escherichia coli ESBL 02/26/23 02/26/23 02/26/23 13:01 11:42 07:31 POC Glucose 202 H 168 H 176 H 02/26/23 04:03 POC Glucose 173 H Electrocardiogram Date: 01/29/23 Findings: + SB @ (58) and + RBBB Chest X-Ray Date: 08/05/22 Negative left rib series No acute cardiopulmonary disease Bilateral hyperinflated lungs may represent excellent inspiratory effort or secondary signs of COPD Echocardiogram Date: 01/23/23 EF: 60-65% LV Function: normal Other Findings: + LVH (mild) Valvular Disease: + no significant valvular disease Other Testing Chest CT 01/16/23 1. There is no evidence of intrathoracic metastatic disease. 2. Cardiomegaly. 3. No airspace consolidation or pleural effusion is identified. 4. Diffuse peribronchial thickening suggests bronchitis/reactive airway disease. This is lower lobe predominant and could also potentially be seen with chronic aspiration. Correlate clinically. 5. Additional findings as above. Abdomen pelvis CT 01/16/23 1. No evidence of recurrent or metastatic disease. 2. Bilateral renal lesions are seen, some of which measure greater than simple fluid density. The right lesion is stable from prior exam, however a left inferior pole lesion is not well seen allowing for differences in technique. Nonemergent ultrasound is recommended to exclude solid mass. 3. Additional findings as above. Cardiac event monitor 03/01/22 NSR throughout Rare PACs and PVCs
[2023-02-26] MEDS ORDERED: ePHEDrine sulfate 50 MG/ML AMP IV PRN (13:36)
[2023-02-26] MEDS ORDERED: ATROPINE SULFATE 0.1 MG/ML 10ML SYR IV PRN (13:36)
[2023-02-26 13:42] LABS: HBSAG NON-REACTIVE (NON-REACTIVE); Hepatitis B Core Antibody IgM NON-REACTIVE (NON-REACTIVE); Hepatitis B Surface Ab, Quant <5 mIU/mL (> OR = 10)
[2023-02-26] MEDS ORDERED: PROPOFOL IV EMULSION 10 MG/ML 20 ML VIAL IV ONE (13:46)
[2023-02-26] MEDS ORDERED: LIDOCAINE 2% 2 ML VIAL/AMP(20MG/ML) INFIL ONE (13:46)
[2023-02-26] MEDS ORDERED: ceFAZolin 330 MG/ML 1 GM VIAL ONE (14:28)
[2023-02-26] MEDS ORDERED: PHENYLEPHRINE 100MCG/ML 10ML SYR IV ONE (14:41)
[2023-02-26] MEDS ORDERED: [UNRECOGNIZED DRUG - OTHER] IV SCH (16:00)
[2023-02-26] MEDS ORDERED: CENTRAL TPN IV SCH (16:00)
--- NOTE | 2023-02-26 16:21 | Anesthesiology Progress Note ---
Date of Service February 26, 2023 Anesthesia Post Procedure Vital Signs Vital Signs: Temp Pulse Pulse Pulse Pulse Resp BP 02/26/23 16:10 36.7 C 76 16 02/26/23 16:00 72 14 02/26/23 15:50 77 20 02/26/23 15:41 36.1 C L 77 13 02/26/23 13:31 36.4 C L 75 16 194/83 H 02/26/23 13:17 36.3 C L 72 16 201/72 H 02/26/23 13:02 36.6 C 71 16 197/73 H 02/26/23 12:43 36.7 C 73 16 02/26/23 12:43 36.7 C 73 16 107/81 02/26/23 12:33 36.4 C L 02/26/23 12:32 70 16 195/104 H 02/26/23 11:46 36.6 C 71 18 176/81 H 02/26/23 11:09 36.7 C 71 18 179/92 H 02/26/23 10:13 02/26/23 10:09 36.6 C 72 18 183/84 H 02/26/23 09:39 36.7 C 74 18 181/80 H 02/26/23 09:24 36.7 C 74 18 176/72 H 02/26/23 09:08 36.6 C 71 18 156/106 H 02/26/23 07:37 36.2 C L 74 18 02/26/23 05:00 36.0 C L 69 19 02/25/23 23:57 81 02/25/23 23:00 36.9 C 77 15 02/25/23 21:38 02/25/23 19:00 36.6 C 81 15 02/25/23 17:00 73 BP BP Pulse Ox O2 Del Method O2 Flow Rate 02/26/23 16:10 170/75 H 99 Nasal Cannula 2 02/26/23 16:00 188/82 H 100 Nasal Cannula 2 02/26/23 15:50 181/74 H 100 Nasal Cannula 2 02/26/23 15:41 178/114 H 95 Nasal Cannula 2 02/26/23 13:31 98 02/26/23 13:17 99 02/26/23 13:02 99 02/26/23 12:43 107/81 99 Room Air 02/26/23 12:43 99 02/26/23 12:33 02/26/23 12:32 98 02/26/23 11:46 98 02/26/23 11:09 98 02/26/23 10:13 Room Air 02/26/23 10:09 97 02/26/23 09:39 96 02/26/23 09:24 95 02/26/23 09:08 95 02/26/23 07:37 162/86 H 97 Room Air 02/26/23 05:00 133/77 97 Room Air 02/25/23 23:57 02/25/23 23:00 137/76 97 Room Air 02/25/23 21:38 Room Air 02/25/23 19:00 153/73 H 96 Room Air 02/25/23 17:00 Pain Intensity Abdomen: Pain Intensity: 0 Transfer of Care Handoff Completed per policy Notes Mental Status: alert / awake / arousable and participated in evaluation Patient Amnestic to Procedure: Yes Nausea / Vomiting: adequately controlled Pain: adequately controlled Airway Patency, RR, SpO2: stable & adequate BP & HR: stable & adequate Hydration State: stable & adequate Anesthetic Complications: no major complications apparent
--- NOTE | 2023-02-26 16:46 | XRay Report ---
XR chest 1V portable HISTORY: Status Post Central Catheter Placement COMPARISON: Chest 02/23/2023. FINDINGS: Slightly rotated study. No pneumothorax. A right jugular catheter is again noted and termin ates at the expected location of the proximal SVC. Interval placement of a left subclavian central ve nous catheter which also terminates at the expected location of the mid SVC. The heart remains mildly enlarged. Small bilateral pleural effusions and bibasilar densities persist. IMPRESSION: Satisfactory support line placement as described above. No pneumothorax. ACT 112: Negative or not required by law. Electronically signed by: Jatin Restrepo M.D. 02/26/2023 4:45 PM
--- NOTE | 2023-02-26 17:27 | Operative Report ---
PG Post Operative Report Pre & Post Diagnosis Operation Date: 02/26/23 12:30 Pre-Op Diagnosis: Chronic Kidney Disease; need for dialysis and IV access Post-Op Diagnosis: Chronic Kidney Disease; need for dialysis and IV access I identified the patient and participated in the time-out.: Yes Procedure Operation Date: 02/26/23 12:30 Actual Procedures p Right Jugular Tunneled Perm Catheter Placement, Left Subclavian Central Venous Catheter Placement, Removal of Right Interal Jugular Hemodialysis Catheter(Bilateral) - Javier Mary DO Surgeon Javier Mary DO Market Consultant lula major Estimated Blood Loss 20 Findings See Below Specimens none Anesthesia Type General Complications none Disposition Disposition: Recovery Room Description of Procedure After informed consent was obtained the patient was taken to the operating room and placed in supine position. IV sedation was administered by anesthesia and titrated to effect. After adequate sedation the entire upper chest neck arms etc. were all sterilely prepped and draped in including her prior right internal jugular hemodialysis catheter. I began by advancing a guidewire through the distal port of her existing catheter. There was an obstruction at the distal port. I therefore had to use a thin glidewire to advance through this under fluoroscopic guidance. Once I was in the superior vena cava I removed her existing catheter and discarded it. We used the vascular dilator over the glidewire followed by the introducer sheath. Next we made a small opening in the right lateral chest wall.. A tunneling device was used to pull a 14 Cymro cuffed permacatheter through the skin of the chest wall underneath the skin of the neck out by the introducer sheath. The cuff was several cm under the skin at it's final placement position. The catheter was advanced through the sheath. Sheath was peeled away leaving the catheter behind. This was all done under fluoroscopic guidance. The catheter appeared to be in good position. All ports easily withdrew dark venous blood. Each port was flushed with 10 cc of sterile saline followed by several cc of injectable heparin. The catheter was secured to the skin using 2-0 silk. 4-0 Vicryl was used to close the neck incision. Sterile dressing was applied I changed my gloves and turned my attention to the left subclavian area. Again Marcaine with epinephrine was injected to create a skin wheal. An 18 Fr finder needle was used to cannulate the left subclavian vein. A guidewire was advanced under fluoroscopy into the superior vena cava. Vascular dilator was advanced over the guidewire followed by a 7 Cymro triple-lumen catheter. The guidewire was removed. The catheter was in good position. All 3 ports withdrew dark venous blood. All 3 Ports were also all flushed with several cc of sterile saline followed by several cc of heparin. The catheter was secured to skin with three-point fixation using silk. A sterile dressing was applied. Postoperative chest Xray showed both catheters in good position and no pneumothorax. I attest to the content of the Intraoperative Record and any orders documented therein. Any exceptions are noted below.
[2023-02-26] MEDS: MEROPENEM 500 MG in SYRINGE 0 ML IV SCH (19:37)
[2023-02-26] MEDS: ALTEPLASE, RECOMBINANT 1 MG/ML 2ML VIAL INSTIL SCH (19:40)
[2023-02-26] MEDS: DONEPEZIL HCL 5 MG TAB PO SCH (21:22)
[2023-02-26] MEDS: QUEtiapine FUMARATE 25 MG TABLET PO SCH (21:23)
[2023-02-26] MEDS: VORTIOXETINE HYDROBROMIDE 10 MG PO SCH (21:23)
[2023-02-26] MEDS: PANTOprazole 40 MG in SYRINGE 0 ML IV SCH (21:23)
[2023-02-26 21:36] LABS: Hematocrit (blood only) 24.8 % (37.0-47.0); Hemoglobin 8.3 g/dl (12.0-16.0)
[2023-02-27] MEDS: ACETAMINOPHEN 1,000 MG/100 ML VIAL IV SCH (00:19)
[2023-02-27] MEDS: INSULIN ASPART PER UNIT CHARGE SC SCH ×6 (00:19→19:40)
[2023-02-27] MEDS ORDERED: Nursing to Pharmacy Communication SCH (03:15)
--- NOTE | 2023-02-27 07:14 | Hospitalist Progress Note ---
Date of Service February 27, 2023 Assessment & Plan (1) Elevated blood pressure reading: Plan: Pt is an 87 y/o female with PMH of DM, colon cancer, TIA (2021), dementia, chronic low back pain, CKD, and HLD presenting to the hospital for right hemicolectomy. Initial surgery 02/06. Returned to the OR 02/19 for ischemic bowel resection and ileostomy creation. #Severe Sepsis with VRE and ESBL #Leukocytosis Patient with clinical deterioration and severe sepsis starting 02/16. Likely abdominal source d/t bowel leak. Patient now s/p ischemic bowel resection with ileostomy creation 02/19. Peritoneal fluid growing VRE E. faecium and ESBL - finalized. Blood cultures NGTD x5 days. Abx adjusted as below. Cautiously optimistic that Ingrid may be turning the corner. If she continues to improve would consider ID consult for abx duration and dosing. Antibiotics: Ceftriaxone started 02/16 - 02/17 Switched to Zosyn 02/17 Added doxycycline 02/17 for anaplasmosis coverage, stop 03/03 Added daptomycin 02/22 for VRE Switched Zosyn to ertapenem 02/23 Switched ertapenem to meropenem 02/24 due to hypoalbuminemia #ARCELIA on CKD IV #ATN Baseline Cr ~ 1.6-1.7. Has had a significant bump in creatinine. Likely intrinsic kidney injury most likely acute tubular necrosis as FeNa 1.7%. Temporary dialysis line failed to allow for repetitive bouts of HD. Had tunneled dialysis catheter placement 02/26. Ongoing CHEF DE CUISINE with interval improvement in creatinine. Nephrology continues to follow. #Anemia #Coagulability #Bleeding #Heme Positive Stool Patient with some degree of GI bleed as hemoglobin continues to drop intermittently. Not a candidate for scope at this time. Started on pantoprazole BID. Patient with several blood transfusions this admission - last 2U 02/26. Patient at high risk of developing VTE. Is on heparin SQ BID for dvt ppx. Patient with intermittent bleeding holding heparin as indicated based on bleeding. Assess risk v benefit daily. #Elevated BP Asymptomatic elevated blood pressure persistently in postoperative period. While likely reactive to recent surgery and pain, given pt's age and comorbidities she likely has underlying hypertension. With patient's history of CKD IV she was started on 5 mg amlodipine. Would err on the side of caution as to avoid hypotension, hypoperfusion, and falls in this elderly patient. Permissive hypertension acceptable as hypoperfusion would be yet another insult to her tenuous status. Holding amlodipine #A fib with RVR Patient without a history of atrial fibrillation. 02/20 developed a fib with RVR. Responds well to Lopressor 5 mg IV. Lopressor for HR > 120 if BP can tolerate. Heparin SQ BID for VTE ppx. Intermittently held as indicated. Assess daily. #Parental Nutrition Pharmacy/Dietary on board. TPN through central access. Ostomy has begun functioning. Hopefully she will be able to take PO soon and this will no longer be an issue. Speech consult 02/27. 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 Continue with doxycycline x 14 days. #Dementia Patient on Seroquel 12.5 mg and donepezil 5 mg QHS. Continue while inpatient #Insulin Dependent Diabetes Mellitus SSI while hospitalized. Resume home dosing on discharge #Depression Continue home vortioxetine #OAB Continue home oxybutynin #HLD Continue statin therapy Code Status: Patient does have a living will stating DNR/DNI etc. This does not currently apply as patient presented for elective procedure. Full code in the setting of complications from recent procedure. Lines: PIV x1, tunneled dialysis catheter, Vera Diet: ostomy functioning, speech consult DVT ppx: heparin BID, intermittently held for bleeding, assess daily Dispo: PCU/Tele, will need rehab Family Updated: 02/25, attempted to call 02/27 (2) Chronic kidney disease, stage IV (severe): (3) Anastomotic leak of intestine: (4) Atrial fibrillation with rapid ventricular response: (5) On parenteral nutrition: Admission and Anticipated Discharge Date Admission Date: February 06, 2023 Supervising Physician Co-Signing Physician Notes Resident Physician Supervision Note: I independently interviewed and examined the patient and verified the kinsey history and physical, reviewed labs and image studies and agree with resident findings and care plan. Continuing to be more and more responsive each day. Asked for water for dry throat. Heart - regular, Lungs - clear anteriorly; abdomen - soft, dressing +, ostomy draining - stool dark greenish. Severe sepsis sec to Anastomotic leak - grew ESBL and VRE in peritoneal fluid - continue IV abx. WBC higher - 24k but no fever and overall doing better. Anemia - s/p total 4PRBC now. h/h stable today Heme positive stool - continue to monitor h/h. added protonix. ATN - tunnel cath placed 02/26. HD per nephro. Malnutrition - continue TPN. PT/OT Speech therapy Vera/tunnel cath/ostomy Heparin SQ for DVT proh Subjective Seen at bedside this AM. More interactive. Reports improved pain. Reports feeling better. Physical Exam 2 Physical Exam: Gen: thin appearing elderly female, no respiratory distress HEENT: AT NC MMM CV: RRR no m/r/g clinically well perfused Resp: CTAB no wheezing no increased work of breathing Abd: soft, less tender, functioning ostomy in place MSK: no obvious deformities Psych: appropriate mood and affect Neuro: alert Skin: no rashes or bruising noted Results & Data Results & Data Vital Signs (Past 12 Hours) Vital Signs Temp Pulse Pulse Pulse Resp BP Pulse Ox 02/27/23 03:31 36.8 C 67 20 113/59 L 96 02/27/23 00:36 69 02/26/23 22:45 75 20 124/62 96 02/26/23 22:30 72 124/62 96 02/26/23 22:00 70 126/63 95 02/26/23 21:30 84 164/80 H 98 02/26/23 21:05 O2 Del Method 02/27/23 03:31 Room Air 02/27/23 00:36 02/26/23 22:45 Room Air 02/26/23 22:30 Room Air 02/26/23 22:00 Room Air 02/26/23 21:30 Room Air 02/26/23 21:05 Room Air Laboratory Results 02/27/23 07:53 02/27/23 07:53 Resident Activity Tracking Resident Involvement: Resident Care Provided Care Provided: Adult Hospital Medicine
[2023-02-27 08:07] LABS: Hematocrit (blood only) 24.2 % (37.0-47.0); Hemoglobin 8.2 g/dl (12.0-16.0); Mean Corpuscular Hemoglobin 28.6 pg (25.0-34.0); Mean Corpuscular Hgb Conc 33.9 g/dL (32.0-36.0); Mean Corpuscular Volume 84.3 fL (80.0-100.0); Mean Platelet Volume 10.9 fL (9.4-12.4); Nucleated RBC # (auto) 0.02 K/uL (0.00-0.12); Nucleated RBC % (auto) 0.1 %; Platelet Count 452 K/uL (130-400); RDW Coefficient of Variation 16.3 % (11.5-14.5); RDW Standard Deviation 49.8 fL (36.4-46.3); Red Blood Count 2.87 M/uL (4.20-5.40); White Blood Count 24.36 K/ul (4.8-10.8)
[2023-02-27] MEDS: ASCORBIC ACID 500 MG TAB PO SCH (08:27)
[2023-02-27] MEDS: CHOLECALCIFEROL 1,000 UNITS 25 MCG TAB PO SCH (08:27)
[2023-02-27 08:29] LABS: Albumin Level 2.2 gm/dl (3.4-5.0); Calcium 8.4 mg/dl (8.6-10.3); Creatinine Clr Calc Pharmacy 9.3 ml/min; Est GFR (African American) 10.5 ml/min; Est GFR (Non-African American) 9.1 ml/min; Magnesium 1.9 mg/dl (1.7-2.4); Phosphorus 4.6 mg/dl (2.5-4.9); Potassium 3.7 mmol/L (3.5-5.1)
[2023-02-27 08:31] LABS: Basophils # (auto) 0.06 K/uL (0.00-0.20); Basophils % (auto) 0.2 %; Eosinophils # (auto) 0.35 K/uL (0.00-0.50); Eosinophils % (auto) 1.4 %; Immature Granulocytes # (auto) 1.82 K/uL (0.01-0.20); Immature Granulocytes % (auto) 7.5 %; Lymphocytes # (auto) 1.35 K/uL (1.20-3.40); Lymphocytes % (auto) 5.5 %; Monocytes # (auto) 1.32 K/uL (0.11-0.59); Monocytes % (auto) 5.4 %; Neutrophils # (auto) 19.46 K/uL (1.40-6.50); Polychromasia 1+
[2023-02-27] MEDS: LANTUS PER UNIT CHARGE SC SCH (08:53)
[2023-02-27] MEDS: PANTOprazole 40 MG in SYRINGE 0 ML IV SCH ×2 (08:53→20:45)
[2023-02-27] MEDS: DOXYCYCLINE HYCLATE 100 MG in DEXTROSE 5% MINI-B 100 ML IV SCH ×2 (09:03→19:41)
--- NOTE | 2023-02-27 10:27 | Nephrology Progress Note ---
Date of Service February 27, 2023 Assessment & Plan (1) Acute kidney injury: (2) Anemia: (3) Chronic kidney disease, stage IV (severe): (4) Anastomotic leak of intestine: Plan 87 year old F with h/o CKD stage G3A b/l cr 1.1-1.3 mg/dl, AODM, hyperlipidemia, osteoporosis and prior h/o TIA, recent Dx of adenocarcinoma of the colon s/p R open hemicolectomy 02/06/23. On post-op day #10 developed a fever, CT A/P w/ IV contrast was negative for obstruction or anastomotic leak, fever continues despite broad spectrum antibiotics. 02/19/23 CXR revealed pneumoperitoneum. Exploratory laparotomy revealed an anastomotic leak/perforation and had resection of the anastomosis w/ creation of an end ileostomy. Cr was 1.3 on 02/16/23 and has been rising sharply over a week to 5.6 mg/dl, BUN >100 and became oliguric with volume overload had temporary dialysis catheter on 02/24/2023 and started on dialysis for progressive worsening of renal function with oligoanuria. Had 2 hours dialysis Thursday. Temporary dialysis catheter stopped working and was removed on Thursday and had Rt IJ tunneled dialysis catheter placed on 02/26/2023 and had dialysis in the afternoon. --Plan for 3 hours dialysis today. Monitor over the weekend for improvement in urine output and electrolyte. If needed we will consider dialysis Thursday and then continue to monitor for renal recovery. Avoid aggressive UF. -- Dose medications for eGFR less than 10, avoid all nephrotoxic medications. Admission and Anticipated Discharge Date Admission Date: February 06, 2023 Junior Veliz was seen and evaluated during dialysis this morning. She has been much more awake and alert today, responded appropriately, answered questions, denies any specific symptoms. Urine output slightly improved but BUN and creatinine remain elevated after 2 hours dialysis yesterday. Blood pressure improved. Review of Systems Review of Systems: detail ROS was otherwise unremarkable. Physical Exam Constitutional: WD/WN, vitals as above + ill appearing; no acute distress Eyes: + anicteric sclerae Neck: normal visual inspection Cardiovascular: Rate/Rhythm: regular rate and regular rhythm Heart Sounds: normal S1 and normal S2 Extremities: + edema Neurologic: no focal motor deficits Results & Data Vital Signs (Past 12 Hours) Vital Signs Temp Pulse Pulse Pulse Pulse Resp BP 02/27/23 10:00 80 101/42 L 02/27/23 09:51 02/27/23 09:30 71 141/85 H 02/27/23 09:20 36.4 C L 74 02/27/23 08:00 36.7 C 68 18 02/27/23 03:31 36.8 C 67 20 02/27/23 00:36 69 02/26/23 22:45 75 20 02/26/23 22:30 72 BP Pulse Ox O2 Del Method 02/27/23 10:00 02/27/23 09:51 Room Air 02/27/23 09:30 02/27/23 09:20 02/27/23 08:00 160/67 H 96 Room Air 02/27/23 03:31 113/59 L 96 Room Air 02/27/23 00:36 02/26/23 22:45 124/62 96 Room Air 02/26/23 22:30 124/62 96 Room Air PG Care Time/CCT Total # of Minutes Spent Total Time Spent with Patient: Total time spent is greater than 50% in coordination of care (as documented) at patient's floor/unit and/or counseling patient: Coding Level of Care Code 69196 SUB INP/OBS CARE 2/35MIN Diagnoses Acute kidney injury N17.9 Anemia D64.9 Anemia type: unspecified type Chronic kidney disease, stage IV (severe) N18.4 Anastomotic leak of intestine K91.89 (2) Anemia Anemia type: unspecified type Qualified Code(s): D64.9 - Anemia, unspecified
[2023-02-27] MEDS: HYDROmorphone INJ 0.5 MG/0.5 ML SYR IV PRN ×2 (12:58→19:41)
--- NOTE | 2023-02-27 13:39 | Pharmacy Report ---
Pharmacy Glycemic Short Note 2 - Date of Service February 27, 2023 - Glycemic Short BSG Results (Last 24 hours): 02/26/23 02/26/23 02/26/23 15:45 20:40 23:49 Glucose POC Glucose 184 H 160 H 170 H 02/27/23 02/27/23 02/27/23 03:37 07:53 08:03 Glucose 91 POC Glucose 118 H 93 02/27/23 11:55 Glucose POC Glucose 106 H OUTPATIENT ANTIDIABETIC REGIMEN: * Lantus 20 units SQ qPM * A1c = 8% ASSESSMENT: 02/27: * BSGs downtrending. Lantus reduced to 15 units of 02/26, Fasting 93 mg/dL- received 15 units this morning. Will reduce to 10 units tomorrow (reassess). * Dextrose content increased in TPN today but continued same 10 units in bag. Patient is to received HD today. * Continue to monitor, loosened correction factor. 02/25: * BSGs above goal the last 24h: [phone]/dL. Received 25 units of basal and 16 units of bolus insulin yesterday. * HD cath clotted - unable to dialyze today. TPN continues to run. NPO. * Lantus increased to 20 units given elevated fasting BSGs. Continued 10 units of insulin in TPN for now (unclear of future plan for PN given access issue). Novolog correctional tightened. TPN dextrose taken to goal central access (118gm CHO). 02/24: * Patient's BSGs yesterday were [phone] mg/dL. Today's AM BSGs were 240-212-146 mg/dL. * Patient did get 2 hrs of HD yesterday and planned for 3hr HD today. * Increased SC Lantus dose given persistently BSGs. However after BSG normalized at lunchtime and as patient receiving another round of HD today, will reduce the amount of insulin the TPN bag from 20 to 10. If BSGs trend up again can consider tightening NovoLog CF. * Will keep TPN macros the same today until BSGs somewhat consistently controlled. 02/23: * Patient's blood sugars elevated again today, 0 units of insulin in PPN bag with 50 gm of dextrose * Converting to central parenteral nutrition- dextrose will increase- will add 20 units of insulin to the bag (patient was used ~19 units of correctional since resuming TPN). Adjusted checks back to q4 as this helped previously. * Resumed 10 units of lantus qAM (held 02/22 d/t NPO status and ppn held until 1600). 02/19: * Patient's blood sugars elevated with initiation of Peripheral nutrition yesterday. Increase lantus to 10 units. * Dextrose content of ppn was slightly reduced today, will add 10 units of insulin to PPN bag to help cover the dextrose * Correction factor tightened to 25. Continue to monitor 02/18: * Patient had a hypoglycemic event yesterday at lunchtime with a BSG of 63 mg/dL. Thankfully patient was asymptomatic but did require 1/2 amp of D50 to correct BSG. All insulin was held yesterday. * Patient remains NPO but fasting trended up to 131 mg/dL this AM. Likely related to basal deficiency from previous day. Will order 5 units of Lantus. Novolog was loosened yesterday. Continue to trend postprandials and will adjust this afternoon if needed. 02/16: * BSGs have been reasonably well-controlled over past 72 hours, but hypergly cemic trend at lunch noted * Will tighten AM Novolog parameters this morning * Fasting BSG of 116 mg/dL this morning - continue current basal * Possible d/c to [facility] today 02/11: * Keren received 6 units of bolus insulin yesterday. * Diet has advanced today, she is tolerating more carbohydrates. * Fasting BSG elevated this AM, Lantus given at ~0.15 units/kg with Lunch * Mealtime BSGs have been slightly elevated, tighten goal range and carbohydrate coverage 02/09: * Keren did not receive any insulin yesterday * She continues on a clear liquid diet, anticipate higher need for insulin once diet advances. * Continue Novolog at weight based stress of 2 with increase goal range until diet advanced to prevent hypoglycemia. 02/08: * Keren is a 87 yo T2DM s/p open right hemicolectomy * Tolerating clear liquid diet per surgery. No nausea or vomiting. * Patient received Lantus 10 units on 02/06. This was reduced to 8 units on 02/07. Fasting continues to trend downward and was below goal this am at 70 mg/dL. Will hold further basal insulin for now. * Continue weight based Novolog for now (~stress 2) PLAN FOR INPATIENT GLYCEMIC CONTROL: * Basal insulin * Lantus 20 units SC daily * Bolus insulin * NovoLog per scale ACHS or Q4hrs while NPO * Goal Range: Low 110 mg/dL - High 140 mg/dL * Correction Factor: 10 mg/dL/unit * TPN: 10 units regular insulin 10 units of regular insulin added to parenteral nutrition.
--- NOTE | 2023-02-27 13:57 | Pharmacy Report ---
PHA: Parenteral Nutrition Con - Date of Service February 27, 2023 - Scope Pharmacy was consulted on 02/18 to manage parenteral nutrition orders for this patient. - Subjective The patient is currently on day 9 of parenteral nutrition - Objective Height: 5 ft 4.5 in Weight: 72.4 kg Diet: NPO Intake & Output (24hrs):: Intake & Output 02/25/23 02/26/23 02/27/23 02/28/23 06:59 06:59 06:59 06:59 Intake Total 1291.28 / 1291.28 1715.6 / 1715.6 2017 100 / 100 Output Total 1510 / 1510 600 / 600 875 / 875 Balance -218.72 / -218.72 1115.6 / 1115.6 1143 / 1143 100 / 100 Weight 78.9 kg 75.2 kg 72.4 kg 72.4 kg Laboratory Data (Last 24 Hr):: 02/27/23 02/27/23 07:53 07:53 Sodium 140 Potassium 3.7 Chloride 102 Carbon Dioxide 26 BUN 99 H Creatinine 4.12 H D Glucose 91 Calcium 8.4 L Phosphorus 4.6 4.6 Magnesium 1.9 Albumin 2.2 L Nutrition Assessment:: Please refer to the Notes section of the EMR for the most recent senior statistician note. - Assessment F: TPN @ 37.75 mL/hr E: WNL; HD planned for today, only Na in TPN N: BSGs improved - Plan For day 9 of PN administration, the following will be ordered: Increased to slightly below goal for HD today (did not want to increase dextrose more than 50 gms), will go to goal if BSGs remain steady Macronutrients Amino acids 96 grams/day Dextrose 168 grams/day Lipids 50 grams- MWF Micronutrients Sodium chloride 90 mEq Sodium acetate 60 mEq Multivitamins 10 mL Trace Elements 1 mL Additional additives: Regular Insulin 10 units, Thiamine 100 mg Total volume 1278.1 mL to be infused over 24 hrs will provide 1455 kcal/day Labs, as indicated, will be ordered per protocol. TG ordered for Thursday 03/01 Pharmacy will continue to follow and adjust parenteral nutrition orders on a daily basis. Thank you for allowing us to participate in the care of this patient.
[2023-02-27] MEDS ORDERED: CLINOLIPID 20% IV FAT EMULSION 250 ML IV SCH (16:00)
[2023-02-27] MEDS ORDERED: CENTRAL TPN IV SCH (16:00)
[2023-02-27] MEDS ORDERED: [UNRECOGNIZED DRUG - OTHER] IV SCH (16:00)
[2023-02-27] MEDS: MEROPENEM 500 MG in SYRINGE 0 ML IV SCH (16:25)
[2023-02-27] MEDS: DONEPEZIL HCL 5 MG TAB PO SCH (20:45)
[2023-02-27] MEDS: VORTIOXETINE HYDROBROMIDE 10 MG PO SCH (20:45)
[2023-02-27] MEDS: QUEtiapine FUMARATE 25 MG TABLET PO SCH (20:46)
[2023-02-27] MEDS: HEPARIN SOD 5,000 UNIT/0.5 ML VIAL SQ SCH (20:47)
[2023-02-27] MEDS: STOP CLINOLIPID SCH (22:36)
[2023-02-28] MEDS: INSULIN ASPART PER UNIT CHARGE SC SCH ×6 (00:24→20:12)
--- NOTE | 2023-02-28 07:01 | Hospitalist Progress Note ---
Date of Service February 28, 2023 Assessment & Plan (1) Elevated blood pressure reading: (2) Chronic kidney disease, stage IV (severe): (3) Anastomotic leak of intestine: (4) Atrial fibrillation with rapid ventricular response: (5) On parenteral nutrition: Plan Pt is an 87 y/o female with PMH of DM, colon cancer, TIA (2021), dementia, chronic low back pain, CKD, and HLD presenting to the hospital for right hemicolectomy. Initial surgery 02/06. Returned to the OR 02/19 for ischemic bowel resection and ileostomy creation. #Severe Sepsis with VRE and ESBL #Leukocytosis Patient with clinical deterioration and severe sepsis starting 02/16. Likely abdominal source d/t bowel leak. Patient now s/p ischemic bowel resection with ileostomy creation 02/19. Peritoneal fluid growing VRE E. faecium and ESBL - finalized. Blood cultures NGTD. Abx adjusted as below. Cautiously optimistic that Ingrid may be turning the corner. If she continues to improve would consider ID consult for abx duration and dosing. Antibiotics: Ceftriaxone started 02/16 - 02/17 Switched to Zosyn 02/17 Added doxycycline 02/17 for anaplasmosis coverage, stop 03/03 Added daptomycin 02/22 for VRE Switched Zosyn to ertapenem 02/23 Switched ertapenem to meropenem 02/24 due to hypoalbuminemia #ARCELIA on CKD IV #ATN Baseline Cr ~ 1.6-1.7. Has had a significant bump in creatinine. Likely intrinsic kidney injury most likely acute tubular necrosis as FeNa 1.7%. Temporary dialysis line failed to allow for repetitive bouts of HD. Had tunneled dialysis catheter placement 02/26. 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 Nephrology continues to follow. #Anemia #Coagulability #Bleeding #Heme Positive Stool Patient with some degree of GI bleed as hemoglobin continues to drop intermittently. Not a candidate for scope at this time. Started on pantoprazole BID. Patient with several blood transfusions this admission - last 2U 02/26. Patient at high risk of developing VTE. Is on heparin SQ BID for dvt ppx. Patient with intermittent bleeding holding heparin as indicated based on bleeding. Assess risk v benefit daily. #Elevated BP Asymptomatic elevated blood pressure persistently in postoperative period. While likely reactive to recent surgery and pain, given pt's age and comorbidities she likely has underlying hypertension. With patient's history of CKD IV she was started on 5 mg amlodipine. Would err on the side of caution as to avoid hypotension, hypoperfusion, and falls in this elderly patient. Permissive hypertension acceptable as hypoperfusion would be yet another insult to her tenuous status. Holding amlodipine #A fib with RVR Patient without a history of atrial fibrillation. 02/20 developed a fib with RVR. Responds well to Lopressor 5 mg IV. Lopressor for HR > 120 if BP can tolerate. Heparin SQ BID for VTE ppx. Intermittently held as indicated. Assess daily. #Parental Nutrition Pharmacy/Dietary on board. TPN through central access. Ostomy has begun functioning. Speech consult, recommend n.p.o. except sips and chips. P.o. meds crushed. 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 Continue with doxycycline x 14 days. #Dementia Patient on Seroquel 12.5 mg and donepezil 5 mg QHS. Continue while inpatient #Insulin Dependent Diabetes Mellitus SSI while hospitalized. Resume home dosing on discharge #Depression Continue home vortioxetine #OAB Continue home oxybutynin #HLD Continue statin therapy Code Status: Patient does have a living will stating DNR/DNI etc. This does not currently apply as patient presented for elective procedure. Full code in the setting of complications from recent procedure. Lines: PIV x1, tunneled dialysis catheter, Vera Diet: ostomy functioning, speech consult DVT ppx: heparin BID, intermittently held for bleeding, assess daily Dispo: PCU/Tele, will need rehab Family Updated: 02/25, Admission and Anticipated Discharge Date Admission Date: February 06, 2023 Supervising Physician Co-Signing Physician Notes Resident Physician Supervision Note: I independently interviewed and examined the patient and verified the kinsey history and physical, reviewed labs and image studies and agree with resident findings and care plan. Alert, sitting in bed. family at bedside. Heart - regular, Lungs - clear anteriorly; abdomen - soft, dressing +, ostomy draining - stool dark greenish. Severe sepsis sec to Anastomotic leak - ESBL and VRE in peritoneal fluid - continue IV dapto/meropenem. WBC improving Anemia - s/p total 4PRBC now. h/h stable today Heme positive stool - no concern of active bleeding. continue PPI. ARCELIA - tunnel cath placed 02/26. HD per nephro. Malnutrition - continue TPN. Swallowing dysfunction - swallow eval noted. continue NPO status at this time. aggressive oral hygiene. Vera/tunnel cath/ostomy Heparin SQ for DVT proh Subjective Patient was seen bedside this morning. States that she feels okay today. States that she has been very sick over this past couple days. She been having coughing with phlegm. Denies any shortness of breath chest pain or abdominal pain. Review of Systems Review of Systems: All systems reviewed & are unremarkable except as noted in Subjective Physical Exam Physical Exam: Gen: thin appearing elderly female, no respiratory distress HEENT: AT NC MMM CV: RRR no m/r/g clinically well perfused Resp: CTAB no wheezing no increased work of breathing Abd: soft, less tender, functioning ostomy in place MSK: no obvious deformities Psych: appropriate mood and affect Neuro: alert Skin: no rashes or bruising noted Results & Data Results & Data Vital Signs (Past 12 Hours) Vital Signs Temp Pulse Pulse Pulse Resp BP Pulse Ox 02/28/23 04:12 36.8 C 84 24 164/77 H 98 02/28/23 00:49 80 02/27/23 22:56 36.9 C 79 20 146/61 H 96 02/27/23 21:58 02/27/23 19:20 37.0 C 75 18 151/65 H 95 O2 Del Method 02/28/23 04:12 Room Air 02/28/23 00:49 02/27/23 22:56 Room Air 02/27/23 21:58 Room Air 02/27/23 19:20 Room Air Resident Activity Tracking Resident Involvement: Resident Care Provided Care Provided: Adult Hospital Medicine
[2023-02-28] MEDS: HYDROmorphone INJ 0.5 MG/0.5 ML SYR IV PRN ×2 (07:32→16:16)
[2023-02-28 07:37] LABS: Hematocrit (blood only) 23.3 % (37.0-47.0); Hemoglobin 7.7 g/dl (12.0-16.0); Mean Corpuscular Hemoglobin 28.2 pg (25.0-34.0); Mean Corpuscular Volume 85.3 fL (80.0-100.0); Mean Platelet Volume 10.9 fL (9.4-12.4); Nucleated RBC # (auto) 0.04 K/uL (0.00-0.12); Nucleated RBC % (auto) 0.2 %; Platelet Count 514 K/uL (130-400); RDW Coefficient of Variation 16.6 % (11.5-14.5); RDW Standard Deviation 50.7 fL (36.4-46.3); Red Blood Count 2.73 M/uL (4.20-5.40); White Blood Count 22.72 K/ul (4.8-10.8)
[2023-02-28] MEDS: DOXYCYCLINE HYCLATE 100 MG in DEXTROSE 5% MINI-B 100 ML IV SCH (07:37)
[2023-02-28 07:40] LABS: Albumin Level 2.3 gm/dl (3.4-5.0); Calcium 8.5 mg/dl (8.6-10.3); Magnesium 1.7 mg/dl (1.7-2.4); Potassium 3.4 mmol/L (3.5-5.1)
[2023-02-28 07:46] LABS: Basophils # (auto) 0.04 K/uL (0.00-0.20); Basophils % (auto) 0.2 %; Creatinine Clr Calc Pharmacy 11.1 ml/min; Eosinophils # (auto) 0.37 K/uL (0.00-0.50); Eosinophils % (auto) 1.6 %; Est GFR (African American) 13.1 ml/min; Est GFR (Non-African American) 11.3 ml/min; Immature Granulocytes # (auto) 1.56 K/uL (0.01-0.20); Immature Granulocytes % (auto) 6.9 %; Lymphocytes # (auto) 1.11 K/uL (1.20-3.40); Lymphocytes % (auto) 4.9 %; Monocytes # (auto) 1.27 K/uL (0.11-0.59); Monocytes % (auto) 5.6 %; Neutrophils # (auto) 18.37 K/uL (1.40-6.50); Neutrophils % (auto) 80.8 %; Phosphorus 3.9 mg/dl (2.5-4.9); Polychromasia 1+
[2023-02-28] MEDS: PANTOprazole 40 MG in SYRINGE 0 ML IV SCH ×2 (08:49→20:14)
[2023-02-28] MEDS: ASCORBIC ACID 500 MG TAB PO SCH (08:51)
[2023-02-28] MEDS: CHOLECALCIFEROL 1,000 UNITS 25 MCG TAB PO SCH (08:52)
[2023-02-28] MEDS ORDERED: LANTUS PER UNIT CHARGE SC SCH (09:00)
--- NOTE | 2023-02-28 11:33 | Nephrology Progress Note ---
Date of Service February 28, 2023 Assessment & Plan (1) Acute kidney injury: Plan: Dialysis dependent. Non-oliguric but urine output reduced. Completed HD yesterday with adequate clearance. Electrolytes acceptable. Volume status controlled. No plan for HD today. HD catheter unfortunately has not been functioning well. Rt IJ HD catheter placed 02/26. No HD today. Will reevaluate tomorrow AM. Document strict I/O's and repeat metabolic profile tomorrow AM. Medications are appropriately dosed for kidney function. (2) Chronic kidney disease, stage III (moderate): Plan: CKD III A2. CKD attributed to hypertension and DKD. (3) Anemia: Plan: Stable. No signs of active bleeding. Parental nutrition encouraged. Repeat H/H tomorrow AM. (4) Anastomotic leak of intestine: Plan: Adenocarcinoma of the colon s/p R open hemicolectomy 02/06/23. On post-op day #10 developed a fever. Exploratory laparotomy revealed an anastomotic leak/perforation and had resection of the anastomosis w/ creation of an end ileostomy. Admission and Anticipated Discharge Date Admission Date: February 06, 2023 Subjective No acute events overnight. No fevers or chills. Keren has been experiencing some generalized achiness and discomfort. Pain controlled with pain medications. Resting comfortably when I entered the room. IV nutrition infusing. Denies shortness of breath. Qb flow issues and high access pressure during HD treatment yesterday. Keren otherwise tolerated treatment well. She remains non-oliguric but UOP slightly reduced. Review of Systems Review of Systems: All systems reviewed & are unremarkable except as noted in HPI & below Physical Exam Constitutional: well developed; no acute distress Eyes: no scleral abnormality and no corneal abnormality ENMT: Mouth: no oral mucosal abnormality and oral mucous membranes not dry Neck: normal visual inspection and trachea midline Respiratory: normal respiratory effort Auscultation: lungs clear to auscultation bilaterally Cardiovascular: Rate/Rhythm: regular rate Heart Sounds: normal S1 and normal S2 Extremities: no edema Musculoskeletal: Extremities: no cyanosis and no clubbing Skin: normal turgor; no lesions Neurologic: Motor/Sensory: no tremor and no asterixis Psychiatric: Orientation: alert and oriented x 3 Results & Data Vital Signs (Past 12 Hours) Vital Signs Temp Pulse Pulse Resp BP Pulse Ox O2 Del Method 02/28/23 08:10 75 02/28/23 08:00 36.8 C 73 19 145/74 H 95 Room Air 02/28/23 04:12 36.8 C 84 24 164/77 H 98 Room Air 02/28/23 00:49 80 Laboratory Results Laboratory Results - last 24 hr 02/27/23 02/27/23 02/27/23 11:55 16:04 19:24 WBC RBC Hgb Hct MCV MCH MCHC RDW Std Deviation RDW Coeff of Mari Plt Count MPV Immature Gran % (Auto) Neut % (Auto) Lymph % (Auto) [place] % (Auto) Eos % (Auto) Baso % (Auto) Neut # (Auto) Lymph # (Auto) [place] # (Auto) Eos # (Auto) Baso # (Auto) Immature Gran # (Auto) Absolute Nucleated RBC Nucleated RBC % (auto) Polychromasia Sodium Potassium Chloride Carbon Dioxide Anion Gap BUN Creatinine Est Cr Clr Drug Dosing Est GFR ( Amer) Est GFR (Non-Af Amer) BUN/Creatinine Ratio Glucose POC Glucose 106 H 139 H 167 H Calcium Phosphorus Magnesium Albumin 02/27/23 02/28/23 02/28/23 23:52 03:48 06:22 WBC 22.72 H RBC 2.73 L Hgb 7.7 L Hct 23.3 L MCV 85.3 MCH 28.2 MCHC 33.0 RDW Std Deviation 50.7 H RDW Coeff of Mari 16.6 H Plt Count 514 H MPV 10.9 Immature Gran % (Auto) 6.9 Neut % (Auto) 80.8 Lymph % (Auto) 4.9 [place] % (Auto) 5.6 Eos % (Auto) 1.6 Baso % (Auto) 0.2 Neut # (Auto) 18.37 H Lymph # (Auto) 1.11 L [place] # (Auto) 1.27 H Eos # (Auto) 0.37 Baso # (Auto) 0.04 Immature Gran # (Auto) 1.56 H Absolute Nucleated RBC 0.04 Nucleated RBC % (auto) 0.2 Polychromasia 1+ Sodium 139 Potassium 3.4 L Chloride 102 Carbon Dioxide 25 Anion Gap 12 H BUN 86 H Creatinine 3.44 H D Est Cr Clr Drug Dosing 11.1 Est GFR ( Amer) 13.1 Est GFR (Non-Af Amer) 11.3 BUN/Creatinine Ratio 25.0 H Glucose 115 H POC Glucose 204 H 172 H Calcium 8.5 L Phosphorus 3.9 Magnesium 1.7 Albumin 2.3 L 02/28/23 02/28/23 08:08 11:38 WBC RBC Hgb Hct MCV MCH MCHC RDW Std Deviation RDW Coeff of Mari Plt Count MPV Immature Gran % (Auto) Neut % (Auto) Lymph % (Auto) [place] % (Auto) Eos % (Auto) Baso % (Auto) Neut # (Auto) Lymph # (Auto) [place] # (Auto) Eos # (Auto) Baso # (Auto) Immature Gran # (Auto) Absolute Nucleated RBC Nucleated RBC % (auto) Polychromasia Sodium Potassium Chloride Carbon Dioxide Anion Gap BUN Creatinine Est Cr Clr Drug Dosing Est GFR ( Amer) Est GFR (Non-Af Amer) BUN/Creatinine Ratio Glucose POC Glucose 131 H 163 H Calcium Phosphorus Magnesium Albumin PG Care Time/CCT Total # of Minutes Spent Total Time Spent with Patient: Total time spent is greater than 50% in coordination of care (as documented) at patient's floor/unit and/or counseling patient: Coding Level of Care Code 55233 SUB INP/OBS CARE 3/50MIN Diagnoses Acute kidney injury N17.9 Chronic kidney disease, stage III (moderate) N18.30 Anemia D64.9 Anemia type: unspecified type Anastomotic leak of intestine K91.89 (3) Anemia Anemia type: unspecified type Qualified Code(s): D64.9 - Anemia, unspecified
[2023-02-28] MEDS: DAPTOmycin 600 MG in SYRINGE 0 ML IV SCH (13:23)
[2023-02-28] MEDS: MEROPENEM 500 MG in SYRINGE 0 ML IV SCH (15:51)
[2023-02-28] MEDS ORDERED: [UNRECOGNIZED DRUG - OTHER] IV SCH (16:00)
[2023-02-28] MEDS ORDERED: CENTRAL TPN IV SCH (16:00)
[2023-02-28] MEDS: DONEPEZIL HCL 5 MG TAB PO SCH (20:13)
[2023-02-28] MEDS: HEPARIN SOD 5,000 UNIT/0.5 ML VIAL SQ SCH (20:13)
[2023-02-28] MEDS: VORTIOXETINE HYDROBROMIDE 10 MG PO SCH (20:14)
[2023-02-28] MEDS: QUEtiapine FUMARATE 25 MG TABLET PO SCH (20:14)
[2023-03-01] MEDS: INSULIN ASPART PER UNIT CHARGE SC SCH ×6 (00:19→19:59)
--- NOTE | 2023-03-01 07:41 | Hospitalist Progress Note ---
Date of Service March 01, 2023 Assessment & Plan (1) Elevated blood pressure reading: (2) Chronic kidney disease, stage IV (severe): (3) Anastomotic leak of intestine: (4) Atrial fibrillation with rapid ventricular response: (5) On parenteral nutrition: Plan Pt is an 87 y/o female with PMH of DM, colon cancer, TIA (2021), dementia, chronic low back pain, CKD, and HLD presenting to the hospital for right hemicolectomy. Initial surgery 02/06. Returned to the OR 02/19 for ischemic bowel resection and ileostomy creation. #Severe Sepsis with VRE and ESBL #Leukocytosis -Patient with clinical deterioration and severe sepsis starting 02/16 secondary to bowel leak. -Patient now s/p ischemic bowel resection with ileostomy creation 02/19. Peritoneal fluid growing VRE E. faecium and ESBL - finalized. -Blood cultures NGTD. Abx adjusted as below. -May consider ID consult on Thursday for antibiotic dosing and schedule. Antibiotics: Ceftriaxone started 02/16 - 02/17 Switched to Zosyn 02/17 Added doxycycline 02/17 for anaplasmosis coverage, stop 03/03 Added daptomycin 02/22 for VRE Switched Zosyn to ertapenem 02/23 Switched ertapenem to meropenem 02/24 due to hypoalbuminemia #ARCELIA on CKD IV #ATN -Baseline Cr ~ 1.6-1.7. -Has had a significant bump in creatinine. Likely intrinsic kidney injury most likely acute tubular necrosis as FeNa 1.7%. -Temporary dialysis line failed to allow for repetitive bouts of HD. Had tunneled dialysis catheter placement 02/26. 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 3.68 creatinine on 03/01. -Nephrology continues to follow -No HD today. Reevaluation in the a.m. #Anemia #Coagulability #Bleeding #Heme Positive Stool -Patient with some degree of GI bleed as hemoglobin continues to drop intermittently. Not a candidate for scope at this time. -Started on pantoprazole BID. -Patient with several blood transfusions this admission - last 2U 02/26. -Patient is on heparin due to VTE risk. -We will continue to monitor while inpatient. #Elevated BP -Patient with elevated blood pressure most likely secondary to recent surgery and pain. -Was initially started on amlodipine 5 mg during this admission. -We will hold for now due to risk of becoming hypotensive and high risk of falls. #A fib with RVR -Patient without a history of atrial fibrillation. -02/20 developed a fib with RVR. Responds well to Lopressor 5 mg IV. Lopressor for HR > 120 if BP can tolerate. -Heparin SQ BID for VTE ppx. #Parental Nutrition -Pharmacy/Dietary on board. TPN through central access. -Ostomy has begun functioning. -Speech consult, recommend n.p.o. except sips and chips. P.o. meds crushed. 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 -Completed 14-day course of doxycycline on 02/28. #Dementia -Continue Seroquel 12.5 mg and donepezil 5 mg QHS #Insulin Dependent Diabetes Mellitus -SSI while hospitalized. Resume home dosing on discharge #Depression -Continue home vortioxetine #OAB -Continue home oxybutynin #HLD -Continue statin therapy Code Status: Patient does have a living will stating DNR/DNI etc. This does not currently apply as patient presented for elective procedure. Full code in the setting of complications from recent procedure. Lines: PIV x1, tunneled dialysis catheter, Vera Diet: ostomy functioning, NPO DVT ppx: heparin BID Dispo: PCU/Tele, will need rehab Family Updated: 02/25 Admission and Anticipated Discharge Date Admission Date: February 06, 2023 Supervising Physician Co-Signing Physician Notes Resident Physician Supervision Note: I independently interviewed and examined the patient and verified the kinsey history and physical, reviewed labs and image studies and agree with resident findings and care plan. On calling her name, she responded by saying 'Good morning'. Appropriately responsive. Was sitting up for multiple hours yesterday. Heart - regular, Lungs - clear anteriorly; abdomen - soft, dressing +, ostomy draining - stool dark greenish. Severe sepsis sec to Anastomotic leak - ESBL and VRE in peritoneal fluid - continue IV dapto/meropenem (02/24 start). WBC down to 16k. Anemia - s/p total 4PRBC now. h/h stable today Heme positive stool - no concern of active bleeding. continue PPI. ARCELIA - tunnel cath placed 02/26 - not functioning appropriately. No HD today. Malnutrition - continue TPN. Swallowing dysfunction due to prolonged NPO status - speech therapy note reviewed. Diet initiated today - full liquid. Follow. Vera/tunnel cath/ostomy Heparin SQ for DVT proh Subjective Patient was seen bedside this morning. She is resting comfortably. She has no issues or concerns. Review of Systems Review of Systems: All systems reviewed & are unremarkable except as noted in Subjective Physical Exam Physical Exam: Gen: thin appearing elderly female, no respiratory distress HEENT: AT NC MMM CV: RRR no m/r/g clinically well perfused Resp: CTAB no wheezing no increased work of breathing Abd: soft, less tender, functioning ostomy in place MSK: no obvious deformities Psych: appropriate mood and affect Neuro: alert Skin: no rashes or bruising noted Results & Data Results & Data Vital Signs (Past 12 Hours) Vital Signs Temp Pulse Pulse Resp BP Pulse Ox O2 Del Method 03/01/23 04:07 36.3 C L 90 16 144/73 H 99 Room Air 03/01/23 01:32 73 03/01/23 00:04 80 18 129/70 97 Room Air 02/28/23 20:36 Room Air Resident Activity Tracking Resident Involvement: Resident Care Provided Care Provided: Adult Hospital Medicine
[2023-03-01 08:22] LABS: Hematocrit (blood only) 23.2 % (37.0-47.0); Hemoglobin 7.5 g/dl (12.0-16.0); Mean Corpuscular Hemoglobin 27.9 pg (25.0-34.0); Mean Corpuscular Hgb Conc 32.3 g/dL (32.0-36.0); Mean Corpuscular Volume 86.2 fL (80.0-100.0); Mean Platelet Volume 11.1 fL (9.4-12.4); Nucleated RBC # (auto) 0.02 K/uL (0.00-0.12); Nucleated RBC % (auto) 0.1 %; Platelet Count 467 K/uL (130-400); RDW Coefficient of Variation 16.8 % (11.5-14.5); Red Blood Count 2.69 M/uL (4.20-5.40); White Blood Count 16.34 K/ul (4.8-10.8)
[2023-03-01 08:40] LABS: BUN Creatinine Ratio 32.1 (10-20); Calcium 8.6 mg/dl (8.6-10.3); Creatinine Clr Calc Pharmacy 10.6 ml/min; Est GFR (African American) 12.1 ml/min; Est GFR (Non-African American) 10.4 ml/min; Magnesium 1.6 mg/dl (1.7-2.4); Phosphorus 4.4 mg/dl (2.5-4.9); Potassium 3.8 mmol/L (3.5-5.1)
[2023-03-01 08:41] LABS: Basophils # (auto) 0.03 K/uL (0.00-0.20); Basophils % (auto) 0.2 %; Eosinophils # (auto) 0.16 K/uL (0.00-0.50); Immature Granulocytes # (auto) 0.85 K/uL (0.01-0.20); Immature Granulocytes % (auto) 5.2 %; Lymphocytes # (auto) 0.86 K/uL (1.20-3.40); Lymphocytes % (auto) 5.3 %; Monocytes # (auto) 0.94 K/uL (0.11-0.59); Monocytes % (auto) 5.8 %; Neutrophils % (auto) 82.5 %; Polychromasia 1+; Spherocytes 1+
[2023-03-01] MEDS: ASCORBIC ACID 500 MG TAB PO SCH (08:52)
[2023-03-01] MEDS: CHOLECALCIFEROL 1,000 UNITS 25 MCG TAB PO SCH (08:52)
[2023-03-01] MEDS: HEPARIN SOD 5,000 UNIT/0.5 ML VIAL SQ SCH ×2 (08:52→21:15)
[2023-03-01] MEDS: LANTUS PER UNIT CHARGE SC SCH (08:52)
[2023-03-01] MEDS: PANTOprazole 40 MG in SYRINGE 0 ML IV SCH ×2 (08:52→21:14)
[2023-03-01] MEDS: MAGNESIUM SULFATE / D5W 1 GM/100 ML BAG IV SCH ×2 (10:26→12:26)
--- NOTE | 2023-03-01 11:29 | Nephrology Progress Note ---
Date of Service March 01, 2023 Assessment & Plan (1) Acute kidney injury: Plan: Has been dialysis dependent. Creatinine continues to rise. Non-oliguric. Increased urine output noted. Completed HD 02/27 with adequate clearance. Electrolytes acceptable. Volume status controlled. No plan for HD today. HD catheter unfortunately has not been functioning well. Rt IJ HD catheter placed 02/26. No HD today. Will reevaluate tomorrow AM. Document strict I/O's and repeat metabolic profile tomorrow AM. Medications are appropriately dosed for kidney function. (2) Chronic kidney disease, stage III (moderate): Plan: CKD III A2. CKD attributed to hypertension and DKD. (3) Anemia: Plan: Stable. No signs of active bleeding. Parental nutrition. Repeat H/H tomorrow AM. (4) Anastomotic leak of intestine: Plan: Adenocarcinoma of the colon s/p R open hemicolectomy 02/06/23. On post-op day #10 developed a signs of sepsis. Exploratory laparotomy revealed an anastomotic leak/perforation and had resection of the anastomosis w/ creation of an end ileo stomy. Admission and Anticipated Discharge Date Admission Date: February 06, 2023 Subjective No acute events overnight. No complaints this morning. Keren is resting comfortably in bed. Review of Systems Review of Systems: All systems reviewed & are unremarkable except as noted in HPI & below Physical Exam Constitutional: well developed, + ill appearing and + frail appearing; no acute distress Eyes: no scleral abnormality and no corneal abnormality ENMT: Mouth: + dry oral mucous membranes; no oral mucosal abnormality Neck: normal visual inspection and trachea midline RIJ TDC. Fullness along the anterior neck left side Respiratory: normal respiratory effort Auscultation: lungs clear to auscultation bilaterally Cardiovascular: Rate/Rhythm: regular rate Heart Sounds: normal S1 and normal S2 Extremities: no edema Musculoskeletal: Extremities: no cyanosis and no clubbing Skin: + turgor decreased; no jaundice Neurologic: Motor/Sensory: no tremor and no asterixis Psychiatric: Orientation: alert; + not oriented x 3 Results & Data Vital Signs (Past 12 Hours) Vital Signs Temp Pulse Pulse Pulse Resp BP Pulse Ox 03/01/23 11:15 73 18 156/65 H 98 03/01/23 08:00 78 15 155/63 H 96 03/01/23 07:55 80 03/01/23 04:07 36.3 C L 90 16 144/73 H 99 03/01/23 01:32 73 03/01/23 00:04 80 18 129/70 97 O2 Del Method 03/01/23 11:15 Room Air 03/01/23 08:00 Room Air 03/01/23 07:55 03/01/23 04:07 Room Air 03/01/23 01:32 03/01/23 00:04 Room Air Laboratory Results Laboratory Results - last 24 hr 02/28/23 02/28/23 02/28/23 11:38 16:32 19:56 WBC RBC Hgb Hct MCV MCH MCHC RDW Std Deviation RDW Coeff of Mari Plt Count MPV Immature Gran % (Auto) Neut % (Auto) Lymph % (Auto) [place] % (Auto) Eos % (Auto) Baso % (Auto) Neut # (Auto) Lymph # (Auto) [place] # (Auto) Eos # (Auto) Baso # (Auto) Immature Gran # (Auto) Absolute Nucleated RBC Nucleated RBC % (auto) Polychromasia Spherocytes Sodium Potassium Chloride Carbon Dioxide Anion Gap BUN Creatinine Est Cr Clr Drug Dosing Est GFR ( Amer) Est GFR (Non-Af Amer) BUN/Creatinine Ratio Glucose POC Glucose 163 H 167 H 159 H Calcium Phosphorus Magnesium Triglycerides 03/01/23 03/01/23 03/01/23 00:09 04:06 07:39 WBC RBC Hgb Hct MCV MCH MCHC RDW Std Deviation RDW Coeff of Mari Plt Count MPV Immature Gran % (Auto) Neut % (Auto) Lymph % (Auto) [place] % (Auto) Eos % (Auto) Baso % (Auto) Neut # (Auto) Lymph # (Auto) [place] # (Auto) Eos # (Auto) Baso # (Auto) Immature Gran # (Auto) Absolute Nucleated RBC Nucleated RBC % (auto) Polychromasia Spherocytes Sodium Potassium Chloride Carbon Dioxide Anion Gap BUN Creatinine Est Cr Clr Drug Dosing Est GFR ( Amer) Est GFR (Non-Af Amer) BUN/Creatinine Ratio Glucose POC Glucose 138 H 164 H 176 H Calcium Phosphorus Magnesium Triglycerides 03/01/23 07:43 WBC 16.34 H RBC 2.69 L Hgb 7.5 L Hct 23.2 L MCV 86.2 MCH 27.9 MCHC 32.3 RDW Std Deviation 52.0 H RDW Coeff of Mari 16.8 H Plt Count 467 H MPV 11.1 Immature Gran % (Auto) 5.2 Neut % (Auto) 82.5 Lymph % (Auto) 5.3 [place] % (Auto) 5.8 Eos % (Auto) 1.0 Baso % (Auto) 0.2 Neut # (Auto) 13.50 H Lymph # (Auto) 0.86 L [place] # (Auto) 0.94 H Eos # (Auto) 0.16 Baso # (Auto) 0.03 Immature Gran # (Auto) 0.85 H Absolute Nucleated RBC 0.02 Nucleated RBC % (auto) 0.1 Polychromasia 1+ Spherocytes 1+ Sodium 141 Potassium 3.8 Chloride 105 Carbon Dioxide 24 Anion Gap 12 H BUN 118 H D Creatinine 3.68 H Est Cr Clr Drug Dosing 10.6 Est GFR ( Amer) 12.1 Est GFR (Non-Af Amer) 10.4 BUN/Creatinine Ratio 32.1 H Glucose 166 H POC Glucose Calcium 8.6 Phosphorus 4.4 Magnesium 1.6 L Triglycerides 140 PG Care Time/CCT Total # of Minutes Spent Total Time Spent with Patient: Total time spent is greater than 50% in coordination of care (as documented) at patient's floor/unit and/or counseling patient: Coding Level of Care Code 36014 SUB INP/OBS CARE 3/50MIN Diagnoses Acute kidney injury N17.9 Chronic kidney disease, stage III (moderate) N18.30 Anemia D64.9 Anemia type: unspecified type Anastomotic leak of intestine K91.89 (3) Anemia Anemia type: unspecified type Qualified Code(s): D64.9 - Anemia, unspecified
--- NOTE | 2023-03-01 13:28 | Pharmacy Report ---
Pharmacy Glycemic Short Note 2 - Date of Service March 01, 2023 - Glycemic Short BSG Results (Last 24 hours): 02/28/23 02/28/23 03/01/23 16:32 19:56 00:09 Glucose POC Glucose 167 H 159 H 138 H 03/01/23 03/01/23 03/01/23 04:06 07:39 07:43 Glucose 166 H POC Glucose 164 H 176 H 03/01/23 11:44 Glucose POC Glucose 174 H OUTPATIENT ANTIDIABETIC REGIMEN: * Lantus 20 units SC PM * HbA1c = 8% (02/02/23) ASSESSMENT: 03/01: * Keren received 27 units of insulin yesterday, 10 basal + 10 in TPN bag + 7 bolus. BSGs were: [phone] mg/dL. * Fasting up slightly to 176 mg/dL today. Will increase basal slightly today. * No change to bolus or amount of insulin in TPN bag (Dextrose = 168 g/day). Stressors stable. 02/27: * BSGs downtrending. Lantus reduced to 15 units of 02/26, Fasting 93 mg/dL- received 15 units this morning. Will reduce to 10 units tomorrow (reassess). * Dextrose content increased in TPN today but continued same 10 units in bag. Patient is to received HD today. * Continue to monitor, loosened correction factor. 02/25: * BSGs above goal the last 24h: [phone]/dL. Received 25 units of basal and 16 units of bolus insulin yesterday. * HD cath clotted - unable to dialyze today. TPN continues to run. NPO. * Lantus increased to 20 units given elevated fasting BSGs. Continued 10 units of insulin in TPN for now (unclear of future plan for PN given access issue). Novolog correctional tightened. TPN dextrose taken to goal central access (118gm CHO). 02/24: * Patient's BSGs yesterday were [phone] mg/dL. Today's AM BSGs were 240- 212-146 mg/dL. * Patient did get 2 hrs of HD yesterday and planned for 3hr HD today. * Increased SC Lantus dose given persistently BSGs. However after BSG normalized at lunchtime and as patient receiving another round of HD today, will reduce the amount of insulin the TPN bag from 20 to 10. If BSGs trend up again can consider tightening NovoLog CF. * Will keep TPN macros the same today until BSGs somewhat consistently controlled. 02/23: * Patient's blood sugars elevated again today, 0 units of insulin in PPN bag with 50 gm of dextrose * Converting to central parenteral nutrition- dextrose will increase- will add 20 units of insulin to the bag (patient was used ~19 units of correctional since resuming TPN). Adjusted checks back to q4 as this helped previously. * Resumed 10 units of lantus qAM (held 02/22 d/t NPO status and ppn held until 1600). PLAN FOR INPATIENT GLYCEMIC CONTROL: * Basal insulin * Lantus 12 units SC daily * Bolus insulin * NovoLog per scale ACHS or Q4hrs while NPO * Goal Range: Low 110 mg/dL - High 140 mg/dL * Correction Factor: 20 mg/dL/unit * No carb ratio * TPN: 10 units regular insulin
[2023-03-01] MEDS ORDERED: [UNRECOGNIZED DRUG - OTHER] IV SCH (16:00)
[2023-03-01] MEDS ORDERED: CENTRAL TPN IV SCH (16:00)
[2023-03-01] MEDS: MEROPENEM 500 MG in SYRINGE 0 ML IV SCH (16:46)
--- NOTE | 2023-03-01 19:52 | Surgery Progress Note ---
Date of Service March 01, 2023 Assessment & Plan (1) Anastomotic leak of intestine: Plan: F/U S/P Open Right Hemicolectomy, POD 22, S/P Exploratory Laparotomy Resection of Ilieocolonic anastamosis, partial omentectomy, small bowel resection, creation of ileostomy, POD 9, S/P Right Jugular Tunneled Perm Catheter Placement, Left Subclavian Central Venous Catheter Placement, Removal of Right Interal Jugular Hemodialysis Catheter, POD 2. pt developed post-op anastomotic leak pt said she feels better, no significant abdominal pain, continue treatment, will F/U. 03/01/2023 7:51 PM pt is stable. continue treatment will F/U. , Admission and Anticipated Discharge Date Admission Date: February 06, 2023 Subjective F/U S/P Open Right Hemicolectomy, POD 23, S/P Exploratory Laparotomy Resection of Ilieocolonic anastamosis, partial omentectomy, small bowel resection, creation of ileostomy, POD 10, S/P Right Jugular Tunneled Perm Catheter Placement, Left Subclavian Central Venous Catheter Placement, Removal of Right Interal Jugular Hemodialysis Catheter, POD 3. pt developed post-op anastomotic leak pt is stable, no significant abdominal pain, no nausea, no vomiting, no fever. ileostomy working well. pt is on TPN. Physical Exam Constitutional: WD/WN, vitals as above Eyes: PERRL, conjunctivae normal, anicteric sclerae Neck: trachea midline, no thyromegaly Respiratory: normal respiratory effort, lungs clear to auscultation Cardiovascular: RRR, no murmur, no edema Gastrointestinal (Abdomen): soft, NT, Nd. stoma working well. Neurologic: patellar DTR's 2+ bilat, sensation intact Psychiatric: A+Ox3, euthymic affect Results & Data Vital Signs (Past 12 Hours) Vital Signs Pulse Pulse Resp BP Pulse Ox O2 Del Method 03/01/23 18:30 83 03/01/23 11:15 73 18 156/65 H 98 Room Air 03/01/23 11:00 Room Air 03/01/23 08:00 78 15 155/63 H 96 Room Air 03/01/23 07:55 80 Laboratory Results Lab Results 02/06/23 02/06/23 02/06/23 Range/Units 10:28 10:43 14:14 WBC 7.80 (4.8-10.8) K/ul RBC 3.32 L (4.20-5.40) M/uL Hgb 8.7 L (12.0-16.0) g/dl Hct 27.6 L (37.0-47.0) % MCV 83.1 (80.0-100.0) fL MCH 26.2 (25.0-34.0) pg MCHC 31.5 L (32.0-36.0) g/dL RDW Std Deviation 51.5 H (36.4-46.3) fL RDW Coeff of Mari 17.0 H (11.5-14.5) % Plt Count 314 (130-400) K/uL MPV 10.8 (9.4-12.4) fL Immature Gran % (Auto) 0.5 % Neut % (Auto) 73.4 % Lymph % (Auto) 14.9 % Stearns % (Auto) 8.2 % Eos % (Auto) 2.4 % Baso % (Auto) 0.6 % Neut # (Auto) 5.72 (1.40-6.50) K/uL Lymph # (Auto) 1.16 L (1.20-3.40) K/uL Stearns # (Auto) 0.64 H (0.11-0.59) K/uL Eos # (Auto) 0.19 (0.00-0.50) K/uL Baso # (Auto) 0.05 (0.00-0.20) K/uL Immature Gran # (Auto) 0.04 (0.01-0.20) K/uL Absolute Nucleated RBC (0.00-0.12) K/uL Nucleated RBC % (auto) % Neutrophils % (Manual) % Lymphocytes % (Manual) % Monocytes % (Manual) % Eosinophils % (Manual) % Metamyelocytes % (Man) % Myelocytes % (Man) % Plasma Cell % (Manual) % Neutrophils # (Manual) (1.40-6.50) K/uL Total Absolute Neuts (1.4-6.5) K/uL Lymphocytes # (Manual) (1.2-3.4) K/uL Total Abs Lymphocytes (1.2-3.4) K/uL Monocytes # (Manual) (0.11-0.59) K/uL Eosinophils # (Manual) (0-0.50) K/uL Metamyelocytes # (Man) (0-0) K/uL Myelocytes # (Manual) (0-0) K/uL Plasma Cell # (Manual) (0-0) K/uL Hypersegmented Neuts Blood Smear Review Toxic Vacuolation Hypochromasia Polychromasia Spherocytes Echinocytes PT (9.0-12.0) Seconds INR (0.9-1.1) APTT (21.0-31.0) Seconds PTT Ratio Sodium 139 (136-145) mmol/L Potassium 4.7 (3.5-5.1) mmol/L Chloride 104 (98-107) mmol/L Carbon Dioxide 26 (21-32) mmol/L Anion Gap 9 (3-11) BUN 26 H (6-23) mg/dl Creatinine 1.77 H (0.6-1.2) mg/dl Est Cr Clr Drug Dosing 21.3 ml/min Est GFR ( Amer) 29.2 ml/min Est GFR (Non-Af Amer) 25.2 ml/min BUN/Creatinine Ratio 14.7 (10-20) Glucose 126 H (70-99(Fasting)) mg/dl POC Glucose 123 H 170 H (70-99) mg/dl Lactate (0.4-2.0) mmol/L Calcium 10.1 (8.6-10.3) mg/dl Phosphorus (2.5-4.9) mg/dl Magnesium (1.7-2.4) mg/dl Total Bilirubin (0.2-1.0) mg/dl AST (13-39) U/L ALT (7-52) U/L Alkaline Phosphatase (34-104) U/L Total Creatine Kinase (26-192) U/L C-Reactive Protein (0-0.5) mg/dl Total Protein (6.0-8.3) gm/dl Albumin (3.4-5.0) gm/dl Globulin (2.5-4.0) gm/dl Albumin/Globulin Ratio (0.9-2) Triglycerides (0-150) mg/dl Procalcitonin (0-0.5) ng/ml Urine Color Urine Appearance (Clear) Urine pH (4.5-7.5) Ur Specific [place] (1.000-1.030) Urine Protein (Negative) Urine Glucose (UA) (Negative) Urine Ketones (Negative) Urine Blood (Negative) Urine Nitrite (Negative) Urine Bilirubin (Negative) Urine Urobilinogen (Negative) Ur Leukocyte Esterase (Negative) Urine WBC (Auto) (0-5) /hpf Urine RBC (Auto) (0-4) /hpf U Hyaline Cast (Auto) (0-5) /lpf U Epithel Cells (Auto) (0-5) /lpf Urine Bacteria (Auto) (Negative) Ur Renal Epithelial Cell (0-5) /lpf Amorphous Sediment (None Prsent) Urine Yeast Urine Osmolality (500-800) mOsm/kg Ur Random Creatinine mg/dl Ur Random Sodium mmol/L Stool Occult Bld Scrn (Negative) A. phagocytophilum DNA (Negative) Hep Bs Antigen (NON-REACTIVE) Hep Bs Ag Confirmation Hep Bs Antibody, Quant (> OR = 10) mIU/mL Hep B Core IgM Ab (NON-REACTIVE) Blood Type O Positive Antibody Screen NEGATIVE Crossmatch See Detail 02/06/23 02/06/23 02/06/23 Range/Units 15:18 16:48 20:23 WBC (4.8-10.8) K/ul RBC (4.20-5.40) M/uL Hgb 7.4 L (12.0-16.0) g/dl Hct 24.3 L (37.0-47.0) % MCV (80.0-100.0) fL MCH (25.0-34.0) pg MCHC (32.0-36.0) g/dL RDW Std Deviation (36.4-46.3) fL RDW Coeff of Mari (11.5-14.5) % Plt Count (130-400) K/uL MPV (9.4-12.4) fL Immature Gran % (Auto) % Neut % (Auto) % Lymph % (Auto) % Stearns % (Auto) % Eos % (Auto) % Baso % (Auto) % Neut # (Auto) (1.40-6.50) K/uL Lymph # (Auto) (1.20-3.40) K/uL Stearns # (Auto) (0.11-0.59) K/uL Eos # (Auto) (0.00-0.50) K/uL Baso # (Auto) (0.00-0.20) K/uL Immature Gran # (Auto) (0.01-0.20) K/uL Absolute Nucleated RBC (0.00-0.12) K/uL Nucleated RBC % (auto) % Neutrophils % (Manual) % Lymphocytes % (Manual) % Monocytes % (Manual) % Eosinophils % (Manual) % Metamyelocytes % (Man) % Myelocytes % (Man) % Plasma Cell % (Manual) % Neutrophils # (Manual) (1.40-6.50) K/uL Total Absolute Neuts (1.4-6.5) K/uL Lymphocytes # (Manual) (1.2-3.4) K/uL Total Abs Lymphocytes (1.2-3.4) K/uL Monocytes # (Manual) (0.11-0.59) K/uL Eosinophils # (Manual) (0-0.50) K/uL Metamyelocytes # (Man) (0-0) K/uL Myelocytes # (Manual) (0-0) K/uL Plasma Cell # (Manual) (0-0) K/uL Hypersegmented Neuts Blood Smear Review Toxic Vacuolation Hypochromasia Polychromasia Spherocytes Echinocytes PT (9.0-12.0) Seconds INR (0.9-1.1) APTT (21.0-31.0) Seconds PTT Ratio Sodium (136-145) mmol/L Potassium (3.5-5.1) mmol/L Chloride (98-107) mmol/L Carbon Dioxide (21-32) mmol/L Anion Gap (3-11) BUN (6-23) mg/dl Creatinine (0.6-1.2) mg/dl Est Cr Clr Drug Dosing ml/min Est GFR ( Amer) ml/min Est GFR (Non-Af Amer) ml/min BUN/Creatinine Ratio (10-20) Glucose (70-99(Fasting)) mg/dl POC Glucose 218 H 246 H (70-99) mg/dl Lactate (0.4-2.0) mmol/L Calcium (8.6-10.3) mg/dl Phosphorus (2.5-4.9) mg/dl Magnesium (1.7-2.4) mg/dl Total Bilirubin (0.2-1.0) mg/dl AST (13-39) U/L ALT (7-52) U/L Alkaline Phosphatase (34-104) U/L Total Creatine Kinase (26-192) U/L C-Reactive Protein (0-0.5) mg/dl Total Protein (6.0-8.3) gm/dl Albumin (3.4-5.0) gm/dl Globulin (2.5-4.0) gm/dl Albumin/Globulin Ratio (0.9-2) Triglycerides (0-150) mg/dl Procalcitonin (0-0.5) ng/ml Urine Color Urine Appearance (Clear) Urine pH (4.5-7.5) Ur Specific [place] (1.000-1.030) Urine Protein (Negative) Urine Glucose (UA) (Negative) Urine Ketones (Negative) Urine Blood (Negative) Urine Nitrite (Negative) Urine Bilirubin (Negative) Urine Urobilinogen (Negative) Ur Leukocyte Esterase (Negative) Urine WBC (Auto) (0-5) /hpf Urine RBC (Auto) (0-4) /hpf U Hyaline Cast (Auto) (0-5) /lpf U Epithel Cells (Auto) (0-5) /lpf Urine Bacteria (Auto) (Negative) Ur Renal Epithelial Cell (0-5) /lpf Amorphous Sediment (None Prsent) Urine Yeast Urine Osmolality (500-800) mOsm/kg Ur Random Creatinine mg/dl Ur Random Sodium mmol/L Stool Occult Bld Scrn (Negative) A. phagocytophilum DNA (Negative) Hep Bs Antigen (NON-REACTIVE) Hep Bs Ag Confirmation Hep Bs Antibody, Quant (> OR = 10) mIU/mL Hep B Core IgM Ab (NON-REACTIVE) Blood Type Antibody Screen Crossmatch 02/07/23 02/07/23 02/07/23 Range/Units 00:08 03:33 06:51 WBC 11.20 H (4.8-10.8) K/ul RBC 3.35 L (4.20-5.40) M/uL Hgb 9.0 L (12.0-16.0) g/dl Hct 27.3 L (37.0-47.0) % MCV 81.5 (80.0-100.0) fL MCH 26.9 (25.0-34.0) pg MCHC 33.0 (32.0-36.0) g/dL RDW Std Deviation 48.1 H (36.4-46.3) fL RDW Coeff of Mari 16.3 H (11.5-14.5) % Plt Count 267 (130-400) K/uL MPV 11.6 (9.4-12.4) fL Immature Gran % (Auto) 0.4 % Neut % (Auto) 82.1 % Lymph % (Auto) 8.3 % Stearns % (Auto) 9.0 % Eos % (Auto) 0.0 % Baso % (Auto) 0.2 % Neut # (Auto) 9.20 H (1.40-6.50) K/uL Lymph # (Auto) 0.93 L (1.20-3.40) K/uL Stearns # (Auto) 1.01 H (0.11-0.59) K/uL Eos # (Auto) 0.00 (0.00-0.50) K/uL Baso # (Auto) 0.02 (0.00-0.20) K/uL Immature Gran # (Auto) 0.04 (0.01-0.20) K/uL Absolute Nucleated RBC (0.00-0.12) K/uL Nucleated RBC % (auto) % Neutrophils % (Manual) % Lymphocytes % (Manual) % Monocytes % (Manual) % Eosinophils % (Manual) % Metamyelocytes % (Man) % Myelocytes % (Man) % Plasma Cell % (Manual) % Neutrophils # (Manual) (1.40-6.50) K/uL Total Absolute Neuts (1.4-6.5) K/uL Lymphocytes # (Manual) (1.2-3.4) K/uL Total Abs Lymphocytes (1.2-3.4) K/uL Monocytes # (Manual) (0.11-0.59) K/uL Eosinophils # (Manual) (0-0.50) K/uL Metamyelocytes # (Man) (0-0) K/uL Myelocytes # (Manual) (0-0) K/uL Plasma Cell # (Manual) (0-0) K/uL Hypersegmented Neuts Blood Smear Review Toxic Vacuolation Hypochromasia Polychromasia Spherocytes Echinocytes PT (9.0-12.0) Seconds INR (0.9-1.1) APTT (21.0-31.0) Seconds PTT Ratio Sodium 141 (136-145) mmol/L Potassium 4.2 (3.5-5.1) mmol/L Chloride 109 H (98-107) mmol/L Carbon Dioxide 24 (21-32) mmol/L Anion Gap 8 (3-11) BUN 28 H (6-23) mg/dl Creatinine 1.73 H (0.6-1.2) mg/dl Est Cr Clr Drug Dosing 21.7 ml/min Est GFR ( Amer) 30.0 ml/min Est GFR (Non-Af Amer) 25.9 ml/min BUN/Creatinine Ratio 16.2 (10-20) Glucose 77 (70-99(Fasting)) mg/dl POC Glucose 176 H 101 H (70-99) mg/dl Lactate (0.4-2.0) mmol/L Calcium 9.1 (8.6-10.3) mg/dl Phosphorus (2.5-4.9) mg/dl Magnesium (1.7-2.4) mg/dl Total Bilirubin (0.2-1.0) mg/dl AST (13-39) U/L ALT (7-52) U/L Alkaline Phosphatase (34-104) U/L Total Creatine Kinase (26-192) U/L C-Reactive Protein (0-0.5) mg/dl Total Protein (6.0-8.3) gm/dl Albumin (3.4-5.0) gm/dl Globulin (2.5-4.0) gm/dl Albumin/Globulin Ratio (0.9-2) Triglycerides (0-150) mg/dl Procalcitonin (0-0.5) ng/ml Urine Color Urine Appearance (Clear) Urine pH (4.5-7.5) Ur Specific [place] (1.000-1.030) Urine Protein (Negative) Urine Glucose (UA) (Negative) Urine Ketones (Negative) Urine Blood (Negative) Urine Nitrite (Negative) Urine Bilirubin (Negative) Urine Urobilinogen (Negative) Ur Leukocyte Esterase (Negative) Urine WBC (Auto) (0-5) /hpf Urine RBC (Auto) (0-4) /hpf U Hyaline Cast (Auto) (0-5) /lpf U Epithel Cells (Auto) (0-5) /lpf Urine Bacteria (Auto) (Negative) Ur Renal Epithelial Cell (0-5) /lpf Amorphous Sediment (None Prsent) Urine Yeast Urine Osmolality (500-800) mOsm/kg Ur Random Creatinine mg/dl Ur Random Sodium mmol/L Stool Occult Bld Scrn (Negative) A. phagocytophilum DNA (Negative) Hep Bs Antigen (NON-REACTIVE) Hep Bs Ag Confirmation Hep Bs Antibody, Quant (> OR = 10) mIU/mL Hep B Core IgM Ab (NON-REACTIVE) Blood Type Antibody Screen Crossmatch 02/07/23 02/07/23 02/07/23 Range/Units 07:54 12:12 16:59 WBC (4.8-10.8) K/ul RBC (4.20-5.40) M/uL Hgb (12.0-16.0) g/dl Hct (37.0-47.0) % MCV (80.0-100.0) fL MCH (25.0-34.0) pg MCHC (32.0-36.0) g/dL RDW Std Deviation (36.4-46.3) fL RDW Coeff of Mari (11.5-14.5) % Plt Count (130-400) K/uL MPV (9.4-12.4) fL Immature Gran % (Auto) % Neut % (Auto) % Lymph % (Auto) % Stearns % (Auto) % Eos % (Auto) % Baso % (Auto) % Neut # (Auto) (1.40-6.50) K/uL Lymph # (Auto) (1.20-3.40) K/uL Ste[place]s # (Auto) (0.11-0.59) K/uL Eos # (Auto) (0.00-0.50) K/uL Baso # (Auto) (0.00-0.20) K/uL Immature Gran # (Auto) (0.01-0.20) K/uL Absolute Nucleated RBC (0.00-0.12) K/uL Nucleated RBC % (auto) % Neutrophils % (Manual) % Lymphocytes % (Manual) % Monocytes % (Manual) % Eosinophils % (Manual) % Metamyelocytes % (Man) % Myelocytes % (Man) % Plasma Cell % (Manual) % Neutrophils # (Manual) (1.40-6.50) K/uL Total Absolute Neuts (1.4-6.5) K/uL Lymphocytes # (Manual) (1.2-3.4) K/uL Total Abs Lymphocytes (1.2-3.4) K/uL Monocytes # (Manual) (0.11-0.59) K/uL Eosinophils # (Manual) (0-0.50) K/uL Metamyelocytes # (Man) (0-0) K/uL Myelocytes # (Manual) (0-0) K/uL Plasma Cell # (Manual) (0-0) K/uL Hypersegmented Neuts Blood Smear Review Toxic Vacuolation Hypochromasia Polychromasia Spherocytes Echinocytes PT (9.0-12.0) Seconds INR (0.9-1.1) APTT (21.0-31.0) Seconds PTT Ratio Sodium (136-145) mmol/L Potassium (3.5-5.1) mmol/L Chloride (98-107) mmol/L Carbon Dioxide (21-32) mmol/L Anion Gap (3-11) BUN (6-23) mg/dl Creatinine (0.6-1.2) mg/dl Est Cr Clr Drug Dosing ml/min Est GFR ( Amer) ml/min Est GFR (Non-Af Amer) ml/min BUN/Creatinine Ratio (10-20) Glucose (70-99(Fasting)) mg/dl POC Glucose 92 127 H 109 H (70-99) mg/dl Lactate (0.4-2.0) mmol/L Calcium (8.6-10.3) mg/dl Phosphorus (2.5-4.9) mg/dl Magnesium (1.7-2.4) mg/dl Total Bilirubin (0.2-1.0) mg/dl AST (13-39) U/L ALT (7-52) U/L Alkaline Phosphatase (34-104) U/L Total Creatine Kinase (26-192) U/L C-Reactive Protein (0-0.5) mg/dl Total Protein (6.0-8.3) gm/dl Albumin (3.4-5.0) gm/dl Globulin (2.5-4.0) gm/dl Albumin/Globulin Ratio (0.9-2) Triglycerides (0-150) mg/dl Procalcitonin (0-0.5) ng/ml Urine Color Urine Appearance (Clear) Urine pH (4.5-7.5) Ur Specific [place] (1.000-1.030) Urine Protein (Negative) Urine Glucose (UA) (Negative) Urine Ketones (Negative) Urine Blood (Negative) Urine Nitrite (Negative) Urine Bilirubin (Negative) Urine Urobilinogen (Negative) Ur Leukocyte Esterase (Negative) Urine WBC (Auto) (0-5) /hpf Urine RBC (Auto) (0-4) /hpf U Hyaline Cast (Auto) (0-5) /lpf U Epithel Cells (Auto) (0-5) /lpf Urine Bacteria (Auto) (Negative) Ur Renal Epithelial Cell (0-5) /lpf Amorphous Sediment (None Prsent) Urine Yeast Urine Osmolality (500-800) mOsm/kg Ur Random Creatinine mg/dl Ur Random Sodium mmol/L Stool Occult Bld Scrn (Negative) A. phagocytophilum DNA (Negative) Hep Bs Antigen (NON-REACTIVE) Hep Bs Ag Confirmation Hep Bs Antibody, Quant (> OR = 10) mIU/mL Hep B Core IgM Ab (NON-REACTIVE) Blood Type Antibody Screen Crossmatch 02/07/23 02/08/23 02/08/23 Range/Units 20:19 08:05 08:37 WBC 10.16 (4.8-10.8) K/ul RBC 2.97 L (4.20-5.40) M/uL Hgb 8.0 L (12.0-16.0) g/dl Hct 25.4 L (37.0-47.0) % MCV 85.5 (80.0-100.0) fL MCH 26.9 (25.0-34.0) pg MCHC 31.5 L (32.0-36.0) g/dL RDW Std Deviation 52.2 H (36.4-46.3) fL RDW Coeff of Mari 16.7 H (11.5-14.5) % Plt Count 226 (130-400) K/uL MPV 11.0 (9.4-12.4) fL Immature Gran % (Auto) 0.5 % Neut % (Auto) 78.6 % Lymph % (Auto) 10.7 % Stearns % (Auto) 8.3 % Eos % (Auto) 1.6 % Baso % (Auto) 0.3 % Neut # (Auto) 7.99 H (1.40-6.50) K/uL Lymph # (Auto) 1.09 L (1.20-3.40) K/uL Ste[place]s # (Auto) 0.84 H (0.11-0.59) K/uL Eos # (Auto) 0.16 (0.00-0.50) K/uL Baso # (Auto) 0.03 (0.00-0.20) K/uL Immature Gran # (Auto) 0.05 (0.01-0.20) K/uL Absolute Nucleated RBC (0.00-0.12) K/uL Nucleated RBC % (auto) % Neutrophils % (Manual) % Lymphocytes % (Manual) % Monocytes % (Manual) % Eosinophils % (Manual) % Metamyelocytes % (Man) % Myelocytes % (Man) % Plasma Cell % (Manual) % Neutrophils # (Manual) (1.40-6.50) K/uL Total Absolute Neuts (1.4-6.5) K/uL Lymphocytes # (Manual) (1.2-3.4) K/uL Total Abs Lymphocytes (1.2-3.4) K/uL Monocytes # (Manual) (0.11-0.59) K/uL Eosinophils # (Manual) (0-0.50) K/uL Metamyelocytes # (Man) (0-0) K/uL Myelocytes # (Manual) (0-0) K/uL Plasma Cell # (Manual) (0-0) K/uL Hypersegmented Neuts Blood Smear Review Toxic Vacuolation Hypochromasia Polychromasia Spherocytes Echinocytes PT (9.0-12.0) Seconds INR (0.9-1.1) APTT (21.0-31.0) Seconds PTT Ratio Sodium 139 (136-145) mmol/L Potassium 4.1 (3.5-5.1) mmol/L Chloride 107 (98-107) mmol/L Carbon Dioxide 27 (21-32) mmol/L Anion Gap 5 (3-11) BUN 19 (6-23) mg/dl Creatinine 1.33 H D (0.6-1.2) mg/dl Est Cr Clr Drug Dosing 28.3 ml/min Est GFR ( Amer) 41.3 ml/min Est GFR (Non-Af Amer) 35.6 ml/min BUN/Creatinine Ratio 14.3 (10-20) Glucose 73 (70-99(Fasting)) mg/dl POC Glucose 89 70 (70-99) mg/dl Lactate (0.4-2.0) mmol/L Calcium 9.1 (8.6-10.3) mg/dl Phosphorus (2.5-4.9) mg/dl Magnesium (1.7-2.4) mg/dl Total Bilirubin (0.2-1.0) mg/dl AST (13-39) U/L ALT (7-52) U/L Alkaline Phosphatase (34-104) U/L Total Creatine Kinase (26-192) U/L C-Reactive Protein (0-0.5) mg/dl Total Protein (6.0-8.3) gm/dl Albumin (3.4-5.0) gm/dl Globulin (2.5-4.0) gm/dl Albumin/Globulin Ratio (0.9-2) Triglycerides (0-150) mg/dl Procalcitonin (0-0.5) ng/ml Urine Color Urine Appearance (Clear) Urine pH (4.5-7.5) Ur Specific [place] (1.000-1.030) Urine Protein (Negative) Urine Glucose (UA) (Negative) Urine Ketones (Negative) Urine Blood (Negative) Urine Nitrite (Negative) Urine Bilirubin (Negative) Urine Urobilinogen (Negative) Ur Leukocyte Esterase (Negative) Urine WBC (Auto) (0-5) /hpf Urine RBC (Auto) (0-4) /hpf U Hyaline Cast (Auto) (0-5) /lpf U Epithel Cells (Auto) (0-5) /lpf Urine Bacteria (Auto) (Negative) Ur Renal Epithelial Cell (0-5) /lpf Amorphous Sediment (None Prsent) Urine Yeast Urine Osmolality (500-800) mOsm/kg Ur Random Creatinine mg/dl Ur Random Sodium mmol/L Stool Occult Bld Scrn (Negative) A. phagocytophilum DNA (Negative) Hep Bs Antigen (NON-REACTIVE) Hep Bs Ag Confirmation Hep Bs Antibody, Quant (> OR = 10) mIU/mL Hep B Core IgM Ab (NON-REACTIVE) Blood Type Antibody Screen Crossmatch 02/08/23 02/08/23 02/08/23 Range/Units 11:37 16:52 20:46 WBC (4.8-10.8) K/ul RBC (4.20-5.40) M/uL Hgb (12.0-16.0) g/dl Hct (37.0-47.0) % MCV (80.0-100.0) fL MCH (25.0-34.0) pg MCHC (32.0-36.0) g/dL RDW Std Deviation (36.4-46.3) fL RDW Coeff of Mari (11.5-14.5) % Plt Count (130-400) K/uL MPV (9.4-12.4) fL Immature Gran % (Auto) % Neut % (Auto) % Lymph % (Auto) % [place]s % (Auto) % Eos % (Auto) % Baso % (Auto) % Neut # (Auto) (1.40-6.50) K/uL Lymph # (Auto) (1.20-3.40) K/uL [place]s # (Auto) (0.11-0.59) K/uL Eos # (Auto) (0.00-0.50) K/uL Baso # (Auto) (0.00-0.20) K/uL Immature Gran # (Auto) (0.01-0.20) K/uL Absolute Nucleated RBC (0.00-0.12) K/uL Nucleated RBC % (auto) % Neutrophils % (Manual) % Lymphocytes % (Manual) % Monocytes % (Manual) % Eosinophils % (Manual) % Metamyelocytes % (Man) % Myelocytes % (Man) % Plasma Cell % (Manual) % Neutrophils # (Manual) (1.40-6.50) K/uL Total Absolute Neuts (1.4-6.5) K/uL Lymphocytes # (Manual) (1.2-3.4) K/uL Total Abs Lymphocytes (1.2-3.4) K/uL Monocytes # (Manual) (0.11-0.59) K/uL Eosinophils # (Manual) (0-0.50) K/uL Metamyelocytes # (Man) (0-0) K/uL Myelocytes # (Manual) (0-0) K/uL Plasma Cell # (Manual) (0-0) K/uL Hypersegmented Neuts Blood Smear Review Toxic Vacuolation Hypochromasia Polychromasia Spherocytes Echinocytes PT (9.0-12.0) Seconds INR (0.9-1.1) APTT (21.0-31.0) Seconds PTT Ratio Sodium (136-145) mmol/L Potassium (3.5-5.1) mmol/L Chloride (98-107) mmol/L Carbon Dioxide (21-32) mmol/L Anion Gap (3-11) BUN (6-23) mg/dl Creatinine (0.6-1.2) mg/dl Est Cr Clr Drug Dosing ml/min Est GFR ( Amer) ml/min Est GFR (Non-Af Amer) ml/min BUN/Creatinine Ratio (10-20) Glucose (70-99(Fasting)) mg/dl POC Glucose 75 106 H 131 H (70-99) mg/dl Lactate (0.4-2.0) mmol/L Calcium (8.6-10.3) mg/dl Phosphorus (2.5-4.9) mg/dl Magnesium (1.7-2.4) mg/dl Total Bilirubin (0.2-1.0) mg/dl AST (13-39) U/L ALT (7-52) U/L Alkaline Phosphatase (34-104) U/L Total Creatine Kinase (26-192) U/L C-Reactive Protein (0-0.5) mg/dl Total Protein (6.0-8.3) gm/dl Albumin (3.4-5.0) gm/dl Globulin (2.5-4.0) gm/dl Albumin/Globulin Ratio (0.9-2) Triglycerides (0-150) mg/dl Procalcitonin (0-0.5) ng/ml Urine Color Urine Appearance (Clear) Urine pH (4.5-7.5) Ur Specific [place] (1.000-1.030) Urine Protein (Negative) Urine Glucose (UA) (Negative) Urine Ketones (Negative) Urine Blood (Negative) Urine Nitrite (Negative) Urine Bilirubin (Negative) Urine Urobilinogen (Negative) Ur Leukocyte Esterase (Negative) Urine WBC (Auto) (0-5) /hpf Urine RBC (Auto) (0-4) /hpf U Hyaline Cast (Auto) (0-5) /lpf U Epithel Cells (Auto) (0-5) /lpf Urine Bacteria (Auto) (Negative) Ur Renal Epithelial Cell (0-5) /lpf Amorphous Sediment (None Prsent) Urine Yeast Urine Osmolality (500-800) mOsm/kg Ur Random Creatinine mg/dl Ur Random Sodium mmol/L Stool Occult Bld Scrn (Negative) A. phagocytophilum DNA (Negative) Hep Bs Antigen (NON-REACTIVE) Hep Bs Ag Confirmation Hep Bs Antibody, Quant (> OR = 10) mIU/mL Hep B Core IgM Ab (NON-REACTIVE) Blood Type Antibody Screen Crossmatch 02/09/23 02/09/23 02/09/23 Range/Units 07:10 07:23 11:26 WBC 8.10 (4.8-10.8) K/ul RBC 2.95 L (4.20-5.40) M/uL Hgb 7.9 L (12.0-16.0) g/dl Hct 25.2 L (37.0-47.0) % MCV 85.4 (80.0-100.0) fL MCH 26.8 (25.0-34.0) pg MCHC 31.3 L (32.0-36.0) g/dL RDW Std Deviation 51.8 H (36.4-46.3) fL RDW Coeff of Mari 16.6 H (11.5-14.5) % Plt Count 228 (130-400) K/uL MPV 10.7 (9.4-12.4) fL Immature Gran % (Auto) 0.5 % Neut % (Auto) 74.4 % Lymph % (Auto) 11.5 % Stearns % (Auto) 8.0 % Eos % (Auto) 5.2 % Baso % (Auto) 0.4 % Neut # (Auto) 6.03 (1.40-6.50) K/uL Lymph # (Auto) 0.93 L (1.20-3.40) K/uL Ste[place]s # (Auto) 0.65 H (0.11-0.59) K/uL Eos # (Auto) 0.42 (0.00-0.50) K/uL Baso # (Auto) 0.03 (0.00-0.20) K/uL Immature Gran # (Auto) 0.04 (0.01-0.20) K/uL Absolute Nucleated RBC (0.00-0.12) K/uL Nucleated RBC % (auto) % Neutrophils % (Manual) % Lymphocytes % (Manual) % Monocytes % (Manual) % Eosinophils % (Manual) % Metamyelocytes % (Man) % Myelocytes % (Man) % Plasma Cell % (Manual) % Neutrophils # (Manual) (1.40-6.50) K/uL Total Absolute Neuts (1.4-6.5) K/uL Lymphocytes # (Manual) (1.2-3.4) K/uL Total Abs Lymphocytes (1.2-3.4) K/uL Monocytes # (Manual) (0.11-0.59) K/uL Eosinophils # (Manual) (0-0.50) K/uL Metamyelocytes # (Man) (0-0) K/uL Myelocytes # (Manual) (0-0) K/uL Plasma Cell # (Manual) (0-0) K/uL Hypersegmented Neuts Blood Smear Review Toxic Vacuolation Hypochromasia Present Polychromasia Spherocytes Echinocytes PT (9.0-12.0) Seconds INR (0.9-1.1) APTT (21.0-31.0) Seconds PTT Ratio Sodium 139 (136-145) mmol/L Potassium 4.0 (3.5-5.1) mmol/L Chloride 105 (98-107) mmol/L Carbon Dioxide 28 (21-32) mmol/L Anion Gap 6 (3-11) BUN 16 (6-23) mg/dl Creatinine 1.15 (0.6-1.2) mg/dl Est Cr Clr Drug Dosing 32.7 ml/min Est GFR ( Amer) 49.2 ml/min Est GFR (Non-Af Amer) 42.4 ml/min BUN/Creatinine Ratio 13.9 (10-20) Glucose 93 (70-99(Fasting)) mg/dl POC Glucose 96 117 H (70-99) mg/dl Lactate (0.4-2.0) mmol/L Calcium 9.1 (8.6-10.3) mg/dl Phosphorus (2.5-4.9) mg/dl Magnesium (1.7-2.4) mg/dl Total Bilirubin (0.2-1.0) mg/dl AST (13-39) U/L ALT (7-52) U/L Alkaline Phosphatase (34-104) U/L Total Creatine Kinase (26-192) U/L C-Reactive Protein (0-0.5) mg/dl Total Protein (6.0-8.3) gm/dl Albumin (3.4-5.0) gm/dl Globulin (2.5-4.0) gm/dl Albumin/Globulin Ratio (0.9-2) Triglycerides (0-150) mg/dl Procalcitonin (0-0.5) ng/ml Urine Color Urine Appearance (Clear) Urine pH (4.5-7.5) Ur Specific [place] (1.000-1.030) Urine Protein (Negative) Urine Glucose (UA) (Negative) Urine Ketones (Negative) Urine Blood (Negative) Urine Nitrite (Negative) Urine Bilirubin (Negative) Urine Urobilinogen (Negative) Ur Leukocyte Esterase (Negative) Urine WBC (Auto) (0-5) /hpf Urine RBC (Auto) (0-4) /hpf U Hyaline Cast (Auto) (0-5) /lpf U Epithel Cells (Auto) (0-5) /lpf Urine Bacteria (Auto) (Negative) Ur Renal Epithelial Cell (0-5) /lpf Amorphous Sediment (None Prsent) Urine Yeast Urine Osmolality (500-800) mOsm/kg Ur Random Creatinine mg/dl Ur Random Sodium mmol/L Stool Occult Bld Scrn (Negative) A. phagocytophilum DNA (Negative) Hep Bs Antigen (NON-REACTIVE) Hep Bs Ag Confirmation Hep Bs Antibody, Quant (> OR = 10) mIU/mL Hep B Core IgM Ab (NON-REACTIVE) Blood Type Antibody Screen Crossmatch 02/09/23 02/09/23 02/10/23 Range/Units 16:34 19:40 07:20 WBC (4.8-10.8) K/ul RBC (4.20-5.40) M/uL Hgb (12.0-16.0) g/dl Hct (37.0-47.0) % MCV (80.0-100.0) fL MCH (25.0-34.0) pg MCHC (32.0-36.0) g/dL RDW Std Deviation (36.4-46.3) fL RDW Coeff of Mari (11.5-14.5) % Plt Count (130-400) K/uL MPV (9.4-12.4) fL Immature Gran % (Auto) % Neut % (Auto) % Lymph % (Auto) % [place]s % (Auto) % Eos % (Auto) % Baso % (Auto) % Neut # (Auto) (1.40-6.50) K/uL Lymph # (Auto) (1.20-3.40) K/uL Stearns # (Auto) (0.11-0.59) K/uL Eos # (Auto) (0.00-0.50) K/uL Baso # (Auto) (0.00-0.20) K/uL Immature Gran # (Auto) (0.01-0.20) K/uL Absolute Nucleated RBC (0.00-0.12) K/uL Nucleated RBC % (auto) % Neutrophils % (Manual) % Lymphocytes % (Manual) % Monocytes % (Manual) % Eosinophils % (Manual) % Metamyelocytes % (Man) % Myelocytes % (Man) % Plasma Cell % (Manual) % Neutrophils # (Manual) (1.40-6.50) K/uL Total Absolute Neuts (1.4-6.5) K/uL Lymphocytes # (Manual) (1.2-3.4) K/uL Total Abs Lymphocytes (1.2-3.4) K/uL Monocytes # (Manual) (0.11-0.59) K/uL Eosinophils # (Manual) (0-0.50) K/uL Metamyelocytes # (Man) (0-0) K/uL Myelocytes # (Manual) (0-0) K/uL Plasma Cell # (Manual) (0-0) K/uL Hypersegmented Neuts Blood Smear Review Toxic Vacuolation Hypochromasia Polychromasia Spherocytes Echinocytes PT (9.0-12.0) Seconds INR (0.9-1.1) APTT (21.0-31.0) Seconds PTT Ratio Sodium (136-145) mmol/L Potassium (3.5-5.1) mmol/L Chloride (98-107) mmol/L Carbon Dioxide (21-32) mmol/L Anion Gap (3-11) BUN (6-23) mg/dl Creatinine (0.6-1.2) mg/dl Est Cr Clr Drug Dosing ml/min Est GFR ( Amer) ml/min Est GFR (Non-Af Amer) ml/min BUN/Creatinine Ratio (10-20) Glucose (70-99(Fasting)) mg/dl POC Glucose 104 H 125 H 109 H (70-99) mg/dl Lactate (0.4-2.0) mmol/L Calcium (8.6-10.3) mg/dl Phosphorus (2.5-4.9) mg/dl Magnesium (1.7-2.4) mg/dl Total Bilirubin (0.2-1.0) mg/dl AST (13-39) U/L ALT (7-52) U/L Alkaline Phosphatase (34-104) U/L Total Creatine Kinase (26-192) U/L C-Reactive Protein (0-0.5) mg/dl Total Protein (6.0-8.3) gm/dl Albumin (3.4-5.0) gm/dl Globulin (2.5-4.0) gm/dl Albumin/Globulin Ratio (0.9-2) Triglycerides (0-150) mg/dl Procalcitonin (0-0.5) ng/ml Urine Color Urine Appearance (Clear) Urine pH (4.5-7.5) Ur Specific [place] (1.000-1.030) Urine Protein (Negative) Urine Glucose (UA) (Negative) Urine Ketones (Negative) Urine Blood (Negative) Urine Nitrite (Negative) Urine Bilirubin (Negative) Urine Urobilinogen (Negative) Ur Leukocyte Esterase (Negative) Urine WBC (Auto) (0-5) /hpf Urine RBC (Auto) (0-4) /hpf U Hyaline Cast (Auto) (0-5) /lpf U Epithel Cells (Auto) (0-5) /lpf Urine Bacteria (Auto) (Negative) Ur Renal Epithelial Cell (0-5) /lpf Amorphous Sediment (None Prsent) Urine Yeast Urine Osmolality (500-800) mOsm/kg Ur Random Creatinine mg/dl Ur Random Sodium mmol/L Stool Occult Bld Scrn (Negative) A. phagocytophilum DNA (Negative) Hep Bs Antigen (NON-REACTIVE) Hep Bs Ag Confirmation Hep Bs Antibody, Quant (> OR = 10) mIU/mL Hep B Core IgM Ab (NON-REACTIVE) Blood Type Antibody Screen Crossmatch 02/10/23 02/10/23 02/10/23 Range/Units 07:45 11:31 16:24 WBC 4.30 L (4.8-10.8) K/ul RBC 3.08 L (4.20-5.40) M/uL Hgb 8.1 L (12.0-16.0) g/dl Hct 26.3 L (37.0-47.0) % MCV 85.4 (80.0-100.0) fL MCH 26.3 (25.0-34.0) pg MCHC 30.8 L (32.0-36.0) g/dL RDW Std Deviation 50.6 H (36.4-46.3) fL RDW Coeff of Mari 16.2 H (11.5-14.5) % Plt Count 276 (130-400) K/uL MPV 10.5 (9.4-12.4) fL Immature Gran % (Auto) 0.7 % Neut % (Auto) 56.2 % Lymph % (Auto) 21.9 % Stearns % (Auto) 13.5 % Eos % (Auto) 7.2 % Baso % (Auto) 0.5 % Neut # (Auto) 2.42 (1.40-6.50) K/uL Lymph # (Auto) 0.94 L (1.20-3.40) K/uL Stearns # (Auto) 0.58 (0.11-0.59) K/uL Eos # (Auto) 0.31 (0.00-0.50) K/uL Baso # (Auto) 0.02 (0.00-0.20) K/uL Immature Gran # (Auto) 0.03 (0.01-0.20) K/uL Absolute Nucleated RBC (0.00-0.12) K/uL Nucleated RBC % (auto) % Neutrophils % (Manual) % Lymphocytes % (Manual) % Monocytes % (Manual) % Eosinophils % (Manual) % Metamyelocytes % (Man) % Myelocytes % (Man) % Plasma Cell % (Manual) % Neutrophils # (Manual) (1.40-6.50) K/uL Total Absolute Neuts (1.4-6.5) K/uL Lymphocytes # (Manual) (1.2-3.4) K/uL Total Abs Lymphocytes (1.2-3.4) K/uL Monocytes # (Manual) (0.11-0.59) K/uL Eosinophils # (Manual) (0-0.50) K/uL Metamyelocytes # (Man) (0-0) K/uL Myelocytes # (Manual) (0-0) K/uL Plasma Cell # (Manual) (0-0) K/uL Hypersegmented Neuts Blood Smear Review Toxic Vacuolation Hypochromasia Polychromasia Spherocytes Echinocytes PT (9.0-12.0) Seconds INR (0.9-1.1) APTT (21.0-31.0) Seconds PTT Ratio Sodium 137 (136-145) mmol/L Potassium 4.0 (3.5-5.1) mmol/L Chloride 101 (98-107) mmol/L Carbon Dioxide 24 (21-32) mmol/L Anion Gap 12 H (3-11) BUN 15 (6-23) mg/dl Creatinine 1.08 (0.6-1.2) mg/dl Est Cr Clr Drug Dosing 34.8 ml/min Est GFR ( Amer) 53.1 ml/min Est GFR (Non-Af Amer) 45.8 ml/min BUN/Creatinine Ratio 13.9 (10-20) Glucose 108 H (70-99(Fasting)) mg/dl POC Glucose 146 H 155 H (70-99) mg/dl Lactate (0.4-2.0) mmol/L Calcium 9.1 (8.6-10.3) mg/dl Phosphorus (2.5-4.9) mg/dl Magnesium (1.7-2.4) mg/dl Total Bilirubin (0.2-1.0) mg/dl AST (13-39) U/L ALT (7-52) U/L Alkaline Phosphatase (34-104) U/L Total Creatine Kinase (26-192) U/L C-Reactive Protein (0-0.5) mg/dl Total Protein (6.0-8.3) gm/dl Albumin (3.4-5.0) gm/dl Globulin (2.5-4.0) gm/dl Albumin/Globulin Ratio (0.9-2) Triglycerides (0-150) mg/dl Procalcitonin (0-0.5) ng/ml Urine Color Urine Appearance (Clear) Urine pH (4.5-7.5) Ur Specific [place] (1.000-1.030) Urine Protein (Negative) Urine Glucose (UA) (Negative) Urine Ketones (Negative) Urine Blood (Negative) Urine Nitrite (Negative) Urine Bilirubin (Negative) Urine Urobilinogen (Negative) Ur Leukocyte Esterase (Negative) Urine WBC (Auto) (0-5) /hpf Urine RBC (Auto) (0-4) /hpf U Hyaline Cast (Auto) (0-5) /lpf U Epithel Cells (Auto) (0-5) /lpf Urine Bacteria (Auto) (Negative) Ur Renal Epithelial Cell (0-5) /lpf Amorphous Sediment (None Prsent) Urine Yeast Urine Osmolality (500-800) mOsm/kg Ur Random Creatinine mg/dl Ur Random Sodium mmol/L Stool Occult Bld Scrn (Negative) A. phagocytophilum DNA (Negative) Hep Bs Antigen (NON-REACTIVE) Hep Bs Ag Confirmation Hep Bs Antibody, Quant (> OR = 10) mIU/mL Hep B Core IgM Ab (NON-REACTIVE) Blood Type Antibody Screen Crossmatch 02/10/23 02/11/23 02/11/23 Range/Units 20:32 07:42 07:52 WBC 4.64 L (4.8-10.8) K/ul RBC 3.08 L (4.20-5.40) M/uL Hgb 8.3 L (12.0-16.0) g/dl Hct 26.3 L (37.0-47.0) % MCV 85.4 (80.0-100.0) fL MCH 26.9 (25.0-34.0) pg MCHC 31.6 L (32.0-36.0) g/dL RDW Std Deviation 51.2 H (36.4-46.3) fL RDW Coeff of Mari 16.3 H (11.5-14.5) % Plt Count 283 (130-400) K/uL MPV 10.2 (9.4-12.4) fL Immature Gran % (Auto) 0.9 % Neut % (Auto) 60.5 % Lymph % (Auto) 14.2 % Stearns % (Auto) 16.2 % Eos % (Auto) 7.8 % Baso % (Auto) 0.4 % Neut # (Auto) 2.81 (1.40-6.50) K/uL Lymph # (Auto) 0.66 L (1.20-3.40) K/uL Stearns # (Auto) 0.75 H (0.11-0.59) K/uL Eos # (Auto) 0.36 (0.00-0.50) K/uL Baso # (Auto) 0.02 (0.00-0.20) K/uL Immature Gran # (Auto) 0.04 (0.01-0.20) K/uL Absolute Nucleated RBC (0.00-0.12) K/uL Nucleated RBC % (auto) % Neutrophils % (Manual) % Lymphocytes % (Manual) % Monocytes % (Manual) % Eosinophils % (Manual) % Metamyelocytes % (Man) % Myelocytes % (Man) % Plasma Cell % (Manual) % Neutrophils # (Manual) (1.40-6.50) K/uL Total Absolute Neuts (1.4-6.5) K/uL Lymphocytes # (Manual) (1.2-3.4) K/uL Total Abs Lymphocytes (1.2-3.4) K/uL Monocytes # (Manual) (0.11-0.59) K/uL Eosinophils # (Manual) (0-0.50) K/uL Metamyelocytes # (Man) (0-0) K/uL Myelocytes # (Manual) (0-0) K/uL Plasma Cell # (Manual) (0-0) K/uL Hypersegmented Neuts Blood Smear Review Toxic Vacuolation Hypochromasia Polychromasia Spherocytes Echinocytes PT (9.0-12.0) Seconds INR (0.9-1.1) APTT (21.0-31.0) Seconds PTT Ratio Sodium 136 (136-145) mmol/L Potassium 3.9 (3.5-5.1) mmol/L Chloride 100 (98-107) mmol/L Carbon Dioxide 25 (21-32) mmol/L Anion Gap 11 (3-11) BUN 13 (6-23) mg/dl Creatinine 1.17 (0.6-1.2) mg/dl Est Cr Clr Drug Dosing 32.1 ml/min Est GFR ( Amer) 48.2 ml/min Est GFR (Non-Af Amer) 41.6 ml/min BUN/Creatinine Ratio 11.1 (10-20) Glucose 144 H (70-99(Fasting)) mg/dl POC Glucose 162 H 162 H (70-99) mg/dl Lactate (0.4-2.0) mmol/L Calcium 8.9 (8.6-10.3) mg/dl Phosphorus (2.5-4.9) mg/dl Magnesium (1.7-2.4) mg/dl Total Bilirubin (0.2-1.0) mg/dl AST (13-39) U/L ALT (7-52) U/L Alkaline Phosphatase (34-104) U/L Total Creatine Kinase (26-192) U/L C-Reactive Protein (0-0.5) mg/dl Total Protein (6.0-8.3) gm/dl Albumin (3.4-5.0) gm/dl Globulin (2.5-4.0) gm/dl Albumin/Globulin Ratio (0.9-2) Triglycerides (0-150) mg/dl Procalcitonin (0-0.5) ng/ml Urine Color Urine Appearance (Clear) Urine pH (4.5-7.5) Ur Specific [place] (1.000-1.030) Urine Protein (Negative) Urine Glucose (UA) (Negative) Urine Ketones (Negative) Urine Blood (Negative) Urine Nitrite (Negative) Urine Bilirubin (Negative) Urine Urobilinogen (Negative) Ur Leukocyte Esterase (Negative) Urine WBC (Auto) (0-5) /hpf Urine RBC (Auto) (0-4) /hpf U Hyaline Cast (Auto) (0-5) /lpf U Epithel Cells (Auto) (0-5) /lpf Urine Bacteria (Auto) (Negative) Ur Renal Epithelial Cell (0-5) /lpf Amorphous Sediment (None Prsent) Urine Yeast Urine Osmolality (500-800) mOsm/kg Ur Random Creatinine mg/dl Ur Random Sodium mmol/L Stool Occult Bld Scrn (Negative) A. phagocytophilum DNA (Negative) Hep Bs Antigen (NON-REACTIVE) Hep Bs Ag Confirmation Hep Bs Antibody, Quant (> OR = 10) mIU/mL Hep B Core IgM Ab (NON-REACTIVE) Blood Type Antibody Screen Crossmatch 02/11/23 02/11/23 02/11/23 Range/Units 11:41 16:43 20:45 WBC (4.8-10.8) K/ul RBC (4.20-5.40) M/uL Hgb (12.0-16.0) g/dl Hct (37.0-47.0) % MCV (80.0-100.0) fL MCH (25.0-34.0) pg MCHC (32.0-36.0) g/dL RDW Std Deviation (36.4-46.3) fL RDW Coeff of Mari (11.5-14.5) % Plt Count (130-400) K/uL MPV (9.4-12.4) fL Immature Gran % (Auto) % Neut % (Auto) % Lymph % (Auto) % [place]s % (Auto) % Eos % (Auto) % Baso % (Auto) % Neut # (Auto) (1.40-6.50) K/uL Lymph # (Auto) (1.20-3.40) K/uL [place]s # (Auto) (0.11-0.59) K/uL Eos # (Auto) (0.00-0.50) K/uL Baso # (Auto) (0.00-0.20) K/uL Immature Gran # (Auto) (0.01-0.20) K/uL Absolute Nucleated RBC (0.00-0.12) K/uL Nucleated RBC % (auto) % Neutrophils % (Manual) % Lymphocytes % (Manual) % Monocytes % (Manual) % Eosinophils % (Manual) % Metamyelocytes % (Man) % Myelocytes % (Man) % Plasma Cell % (Manual) % Neutrophils # (Manual) (1.40-6.50) K/uL Total Absolute Neuts (1.4-6.5) K/uL Lymphocytes # (Manual) (1.2-3.4) K/uL Total Abs Lymphocytes (1.2-3.4) K/uL Monocytes # (Manual) (0.11-0.59) K/uL Eosinophils # (Manual) (0-0.50) K/uL Metamyelocytes # (Man) (0-0) K/uL Myelocytes # (Manual) (0-0) K/uL Plasma Cell # (Manual) (0-0) K/uL Hypersegmented Neuts Blood Smear Review Toxic Vacuolation Hypochromasia Polychromasia Spherocytes Echinocytes PT (9.0-12.0) Seconds INR (0.9-1.1) APTT (21.0-31.0) Seconds PTT Ratio Sodium (136-145) mmol/L Potassium (3.5-5.1) mmol/L Chloride (98-107) mmol/L Carbon Dioxide (21-32) mmol/L Anion Gap (3-11) BUN (6-23) mg/dl Creatinine (0.6-1.2) mg/dl Est Cr Clr Drug Dosing ml/min Est GFR ( Amer) ml/min Est GFR (Non-Af Amer) ml/min BUN/Creatinine Ratio (10-20) Glucose (70-99(Fasting)) mg/dl POC Glucose 207 H 138 H 187 H (70-99) mg/dl Lactate (0.4-2.0) mmol/L Calcium (8.6-10.3) mg/dl Phosphorus (2.5-4.9) mg/dl Magnesium (1.7-2.4) mg/dl Total Bilirubin (0.2-1.0) mg/dl AST (13-39) U/L ALT (7-52) U/L Alkaline Phosphatase (34-104) U/L Total Creatine Kinase (26-192) U/L C-Reactive Protein (0-0.5) mg/dl Total Protein (6.0-8.3) gm/dl Albumin (3.4-5.0) gm/dl Globulin (2.5-4.0) gm/dl Albumin/Globulin Ratio (0.9-2) Triglycerides (0-150) mg/dl Procalcitonin (0-0.5) ng/ml Urine Color Urine Appearance (Clear) Urine pH (4.5-7.5) Ur Specific [place] (1.000-1.030) Urine Protein (Negative) Urine Glucose (UA) (Negative) Urine Ketones (Negative) Urine Blood (Negative) Urine Nitrite (Negative) Urine Bilirubin (Negative) Urine Urobilinogen (Negative) Ur Leukocyte Esterase (Negative) Urine WBC (Auto) (0-5) /hpf Urine RBC (Auto) (0-4) /hpf U Hyaline Cast (Auto) (0-5) /lpf U Epithel Cells (Auto) (0-5) /lpf Urine Bacteria (Auto) (Negative) Ur Renal Epithelial Cell (0-5) /lpf Amorphous Sediment (None Prsent) Urine Yeast Urine Osmolality (500-800) mOsm/kg Ur Random Creatinine mg/dl Ur Random Sodium mmol/L Stool Occult Bld Scrn (Negative) A. phagocytophilum DNA (Negative) Hep Bs Antigen (NON-REACTIVE) Hep Bs Ag Confirmation Hep Bs Antibody, Quant (> OR = 10) mIU/mL Hep B Core IgM Ab (NON-REACTIVE) Blood Type Antibody Screen Crossmatch 02/12/23 02/12/23 02/12/23 Range/Units 06:59 08:02 11:35 WBC 6.16 (4.8-10.8) K/ul RBC 3.02 L (4.20-5.40) M/uL Hgb 8.1 L (12.0-16.0) g/dl Hct 25.1 L (37.0-47.0) % MCV 83.1 (80.0-100.0) fL MCH 26.8 (25.0-34.0) pg MCHC 32.3 (32.0-36.0) g/dL RDW Std Deviation 49.4 H (36.4-46.3) fL RDW Coeff of Mari 16.3 H (11.5-14.5) % Plt Count 298 (130-400) K/uL MPV 9.8 (9.4-12.4) fL Immature Gran % (Auto) 3.6 % Neut % (Auto) 63.0 % Lymph % (Auto) 13.1 % [place]s % (Auto) 13.3 % Eos % (Auto) 6.7 % Baso % (Auto) 0.3 % Neut # (Auto) 3.88 (1.40-6.50) K/uL Lymph # (Auto) 0.81 L (1.20-3.40) K/uL [place] # (Auto) 0.82 H (0.11-0.59) K/uL Eos # (Auto) 0.41 (0.00-0.50) K/uL Baso # (Auto) 0.02 (0.00-0.20) K/uL Immature Gran # (Auto) 0.22 H (0.01-0.20) K/uL Absolute Nucleated RBC (0.00-0.12) K/uL Nucleated RBC % (auto) % Neutrophils % (Manual) % Lymphocytes % (Manual) % Monocytes % (Manual) % Eosinophils % (Manual) % Metamyelocytes % (Man) % Myelocytes % (Man) % Plasma Cell % (Manual) % Neutrophils # (Manual) (1.40-6.50) K/uL Total Absolute Neuts (1.4-6.5) K/uL Lymphocytes # (Manual) (1.2-3.4) K/uL Total Abs Lymphocytes (1.2-3.4) K/uL Monocytes # (Manual) (0.11-0.59) K/uL Eosinophils # (Manual) (0-0.50) K/uL Metamyelocytes # (Man) (0-0) K/uL Myelocytes # (Manual) (0-0) K/uL Plasma Cell # (Manual) (0-0) K/uL Hypersegmented Neuts Blood Smear Review Toxic Vacuolation Hypochromasia Polychromasia Spherocytes Echinocytes PT (9.0-12.0) Seconds INR (0.9-1.1) APTT (21.0-31.0) Seconds PTT Ratio Sodium 137 (136-145) mmol/L Potassium 3.8 (3.5-5.1) mmol/L Chloride 101 (98-107) mmol/L Carbon Dioxide 27 (21-32) mmol/L Anion Gap 9 (3-11) BUN 16 (6-23) mg/dl Creatinine 1.20 (0.6-1.2) mg/dl Est Cr Clr Drug Dosing 31.3 ml/min Est GFR ( Amer) 46.7 ml/min Est GFR (Non-Af Amer) 40.3 ml/min BUN/Creatinine Ratio 13.3 (10-20) Glucose 141 H (70-99(Fasting)) mg/dl POC Glucose 171 H 229 H (70-99) mg/dl Lactate (0.4-2.0) mmol/L Calcium 9.0 (8.6-10.3) mg/dl Phosphorus (2.5-4.9) mg/dl Magnesium (1.7-2.4) mg/dl Total Bilirubin (0.2-1.0) mg/dl AST (13-39) U/L ALT (7-52) U/L Alkaline Phosphatase (34-104) U/L Total Creatine Kinase (26-192) U/L C-Reactive Protein (0-0.5) mg/dl Total Protein (6.0-8.3) gm/dl Albumin (3.4-5.0) gm/dl Globulin (2.5-4.0) gm/dl Albumin/Globulin Ratio (0.9-2) Triglycerides (0-150) mg/dl Procalcitonin (0-0.5) ng/ml Urine Color Urine Appearance (Clear) Urine pH (4.5-7.5) Ur Specific [place] (1.000-1.030) Urine Protein (Negative) Urine Glucose (UA) (Negative) Urine Ketones (Negative) Urine Blood (Negative) Urine Nitrite (Negative) Urine Bilirubin (Negative) Urine Urobilinogen (Negative) Ur Leukocyte Esterase (Negative) Urine WBC (Auto) (0-5) /hpf Urine RBC (Auto) (0-4) /hpf U Hyaline Cast (Auto) (0-5) /lpf U Epithel Cells (Auto) (0-5) /lpf Urine Bacteria (Auto) (Negative) Ur Renal Epithelial Cell (0-5) /lpf Amorphous Sediment (None Prsent) Urine Yeast Urine Osmolality (500-800) mOsm/kg Ur Random Creatinine mg/dl Ur Random Sodium mmol/L Stool Occult Bld Scrn (Negative) A. phagocytophilum DNA (Negative) Hep Bs Antigen (NON-REACTIVE) Hep Bs Ag Confirmation Hep Bs Antibody, Quant (> OR = 10) mIU/mL Hep B Core IgM Ab (NON-REACTIVE) Blood Type Antibody Screen Crossmatch 02/12/23 02/12/23 02/13/23 Range/Units 16:46 21:03 07:47 WBC (4.8-10.8) K/ul RBC (4.20-5.40) M/uL Hgb (12.0-16.0) g/dl Hct (37.0-47.0) % MCV (80.0-100.0) fL MCH (25.0-34.0) pg MCHC (32.0-36.0) g/dL RDW Std Deviation (36.4-46.3) fL RDW Coeff of Mari (11.5-14.5) % Plt Count (130-400) K/uL MPV (9.4-12.4) fL Immature Gran % (Auto) % Neut % (Auto) % Lymph % (Auto) % [place] % (Auto) % Eos % (Auto) % Baso % (Auto) % Neut # (Auto) (1.40-6.50) K/uL Lymph # (Auto) (1.20-3.40) K/uL [place] # (Auto) (0.11-0.59) K/uL Eos # (Auto) (0.00-0.50) K/uL Baso # (Auto) (0.00-0.20) K/uL Immature Gran # (Auto) (0.01-0.20) K/uL Absolute Nucleated RBC (0.00-0.12) K/uL Nucleated RBC % (auto) % Neutrophils % (Manual) % Lymphocytes % (Manual) % Monocytes % (Manual) % Eosinophils % (Manual) % Metamyelocytes % (Man) % Myelocytes % (Man) % Plasma Cell % (Manual) % Neutrophils # (Manual) (1.40-6.50) K/uL Total Absolute Neuts (1.4-6.5) K/uL Lymphocytes # (Manual) (1.2-3.4) K/uL Total Abs Lymphocytes (1.2-3.4) K/uL Monocytes # (Manual) (0.11-0.59) K/uL Eosinophils # (Manual) (0-0.50) K/uL Metamyelocytes # (Man) (0-0) K/uL Myelocytes # (Manual) (0-0) K/uL Plasma Cell # (Manual) (0-0) K/uL Hypersegmented Neuts Blood Smear Review Toxic Vacuolation Hypochromasia Polychromasia Spherocytes Echinocytes PT (9.0-12.0) Seconds INR (0.9-1.1) APTT (21.0-31.0) Seconds PTT Ratio Sodium (136-145) mmol/L Potassium (3.5-5.1) mmol/L Chloride (98-107) mmol/L Carbon Dioxide (21-32) mmol/L Anion Gap (3-11) BUN (6-23) mg/dl Creatinine (0.6-1.2) mg/dl Est Cr Clr Drug Dosing ml/min Est GFR ( Amer) ml/min Est GFR (Non-Af Amer) ml/min BUN/Creatinine Ratio (10-20) Glucose (70-99(Fasting)) mg/dl POC Glucose 146 H 152 H 139 H (70-99) mg/dl Lactate (0.4-2.0) mmol/L Calcium (8.6-10.3) mg/dl Phosphorus (2.5-4.9) mg/dl Magnesium (1.7-2.4) mg/dl Total Bilirubin (0.2-1.0) mg/dl AST (13-39) U/L ALT (7-52) U/L Alkaline Phosphatase (34-104) U/L Total Creatine Kinase (26-192) U/L C-Reactive Protein (0-0.5) mg/dl Total Protein (6.0-8.3) gm/dl Albumin (3.4-5.0) gm/dl Globulin (2.5-4.0) gm/dl Albumin/Globulin Ratio (0.9-2) Triglycerides (0-150) mg/dl Procalcitonin (0-0.5) ng/ml Urine Color Urine Appearance (Clear) Urine pH (4.5-7.5) Ur Specific [place] (1.000-1.030) Urine Protein (Negative) Urine Glucose (UA) (Negative) Urine Ketones (Negative) Urine Blood (Negative) Urine Nitrite (Negative) Urine Bilirubin (Negative) Urine Urobilinogen (Negative) Ur Leukocyte Esterase (Negative) Urine WBC (Auto) (0-5) /hpf Urine RBC (Auto) (0-4) /hpf U Hyaline Cast (Auto) (0-5) /lpf U Epithel Cells (Auto) (0-5) /lpf Urine Bacteria (Auto) (Negative) Ur Renal Epithelial Cell (0-5) /lpf Amorphous Sediment (None Prsent) Urine Yeast Urine Osmolality (500-800) mOsm/kg Ur Random Creatinine mg/dl Ur Random Sodium mmol/L Stool Occult Bld Scrn (Negative) A. phagocytophilum DNA (Negative) Hep Bs Antigen (NON-REACTIVE) Hep Bs Ag Confirmation Hep Bs Antibody, Quant (> OR = 10) mIU/mL Hep B Core IgM Ab (NON-REACTIVE) Blood Type Antibody Screen Crossmatch 02/13/23 02/13/23 02/13/23 Range/Units 09:02 11:50 16:55 WBC (4.8-10.8) K/ul RBC (4.20-5.40) M/uL Hgb (12.0-16.0) g/dl Hct (37.0-47.0) % MCV (80.0-100.0) fL MCH (25.0-34.0) pg MCHC (32.0-36.0) g/dL RDW Std Deviation (36.4-46.3) fL RDW Coeff of Mari (11.5-14.5) % Plt Count (130-400) K/uL MPV (9.4-12.4) fL Immature Gran % (Auto) % Neut % (Auto) % Lymph % (Auto) % Stearns % (Auto) % Eos % (Auto) % Baso % (Auto) % Neut # (Auto) (1.40-6.50) K/uL Lymph # (Auto) (1.20-3.40) K/uL Stearns # (Auto) (0.11-0.59) K/uL Eos # (Auto) (0.00-0.50) K/uL Baso # (Auto) (0.00-0.20) K/uL Immature Gran # (Auto) (0.01-0.20) K/uL Absolute Nucleated RBC (0.00-0.12) K/uL Nucleated RBC % (auto) % Neutrophils % (Manual) % Lymphocytes % (Manual) % Monocytes % (Manual) % Eosinophils % (Manual) % Metamyelocytes % (Man) % Myelocytes % (Man) % Plasma Cell % (Manual) % Neutrophils # (Manual) (1.40-6.50) K/uL Total Absolute Neuts (1.4-6.5) K/uL Lymphocytes # (Manual) (1.2-3.4) K/uL Total Abs Lymphocytes (1.2-3.4) K/uL Monocytes # (Manual) (0.11-0.59) K/uL Eosinophils # (Manual) (0-0.50) K/uL Metamyelocytes # (Man) (0-0) K/uL Myelocytes # (Manual) (0-0) K/uL Plasma Cell # (Manual) (0-0) K/uL Hypersegmented Neuts Blood Smear Review Toxic Vacuolation Hypochromasia Polychromasia Spherocytes Echinocytes PT (9.0-12.0) Seconds INR (0.9-1.1) APTT (21.0-31.0) Seconds PTT Ratio Sodium 137 (136-145) mmol/L Potassium 3.8 (3.5-5.1) mmol/L Chloride 100 (98-107) mmol/L Carbon Dioxide 29 (21-32) mmol/L Anion Gap 8 (3-11) BUN 19 (6-23) mg/dl Creatinine 1.22 H (0.6-1.2) mg/dl Est Cr Clr Drug Dosing 30.8 ml/min Est GFR ( Amer) 45.8 ml/min Est GFR (Non-Af Amer) 39.5 ml/min BUN/Creatinine Ratio 15.6 (10-20) Glucose 155 H (70-99(Fasting)) mg/dl POC Glucose 216 H 100 H (70-99) mg/dl Lactate (0.4-2.0) mmol/L Calcium 9.2 (8.6-10.3) mg/dl Phosphorus (2.5-4.9) mg/dl Magnesium (1.7-2.4) mg/dl Total Bilirubin (0.2-1.0) mg/dl AST (13-39) U/L ALT (7-52) U/L Alkaline Phosphatase (34-104) U/L Total Creatine Kinase (26-192) U/L C-Reactive Protein (0-0.5) mg/dl Total Protein (6.0-8.3) gm/dl Albumin (3.4-5.0) gm/dl Globulin (2.5-4.0) gm/dl Albumin/Globulin Ratio (0.9-2) Triglycerides (0-150) mg/dl Procalcitonin (0-0.5) ng/ml Urine Color Urine Appearance (Clear) Urine pH (4.5-7.5) Ur Specific [place] (1.000-1.030) Urine Protein (Negative) Urine Glucose (UA) (Negative) Urine Ketones (Negative) Urine Blood (Negative) Urine Nitrite (Negative) Urine Bilirubin (Negative) Urine Urobilinogen (Negative) Ur Leukocyte Esterase (Negative) Urine WBC (Auto) (0-5) /hpf Urine RBC (Auto) (0-4) /hpf U Hyaline Cast (Auto) (0-5) /lpf U Epithel Cells (Auto) (0-5) /lpf Urine Bacteria (Auto) (Negative) Ur Renal Epithelial Cell (0-5) /lpf Amorphous Sediment (None Prsent) Urine Yeast Urine Osmolality (500-800) mOsm/kg Ur Random Creatinine mg/dl Ur Random Sodium mmol/L Stool Occult Bld Scrn (Negative) A. phagocytophilum DNA (Negative) Hep Bs Antigen (NON-REACTIVE) Hep Bs Ag Confirmation Hep Bs Antibody, Quant (> OR = 10) mIU/mL Hep B Core IgM Ab (NON-REACTIVE) Blood Type Antibody Screen Crossmatch 02/13/23 02/14/23 02/14/23 Range/Units 20:34 06:43 08:01 WBC 7.61 (4.8-10.8) K/ul RBC 3.18 L (4.20-5.40) M/uL Hgb 8.4 L (12.0-16.0) g/dl Hct 27.0 L (37.0-47.0) % MCV 84.9 (80.0-100.0) fL MCH 26.4 (25.0-34.0) pg MCHC 31.1 L (32.0-36.0) g/dL RDW Std Deviation 52.5 H (36.4-46.3) fL RDW Coeff of Mari 16.6 H (11.5-14.5) % Plt Count 336 (130-400) K/uL MPV 9.9 (9.4-12.4) fL Immature Gran % (Auto) % Neut % (Auto) % Lymph % (Auto) % Stearns % (Auto) % Eos % (Auto) % Baso % (Auto) % Neut # (Auto) (1.40-6.50) K/uL Lymph # (Auto) (1.20-3.40) K/uL Ste[place]s # (Auto) (0.11-0.59) K/uL Eos # (Auto) (0.00-0.50) K/uL Baso # (Auto) (0.00-0.20) K/uL Immature Gran # (Auto) (0.01-0.20) K/uL Absolute Nucleated RBC (0.00-0.12) K/uL Nucleated RBC % (auto) % Neutrophils % (Manual) % Lymphocytes % (Manual) % Monocytes % (Manual) % Eosinophils % (Manual) % Metamyelocytes % (Man) % Myelocytes % (Man) % Plasma Cell % (Manual) % Neutrophils # (Manual) (1.40-6.50) K/uL Total Absolute Neuts (1.4-6.5) K/uL Lymphocytes # (Manual) (1.2-3.4) K/uL Total Abs Lymphocytes (1.2-3.4) K/uL Monocytes # (Manual) (0.11-0.59) K/uL Eosinophils # (Manual) (0-0.50) K/uL Metamyelocytes # (Man) (0-0) K/uL Myelocytes # (Manual) (0-0) K/uL Plasma Cell # (Manual) (0-0) K/uL Hypersegmented Neuts Blood Smear Review Toxic Vacuolation Hypochromasia Polychromasia Spherocytes Echinocytes PT (9.0-12.0) Seconds INR (0.9-1.1) APTT (21.0-31.0) Seconds PTT Ratio Sodium 138 (136-145) mmol/L Potassium 4.0 (3.5-5.1) mmol/L Chloride 102 (98-107) mmol/L Carbon Dioxide 30 (21-32) mmol/L Anion Gap 6 (3-11) BUN 21 (6-23) mg/dl Creatinine 1.34 H (0.6-1.2) mg/dl Est Cr Clr Drug Dosing 28.1 ml/min Est GFR ( Amer) 40.9 ml/min Est GFR (Non-Af Amer) 35.3 ml/min BUN/Creatinine Ratio 15.7 (10-20) Glucose 126 H (70-99(Fasting)) mg/dl POC Glucose 137 H 132 H (70-99) mg/dl Lactate (0.4-2.0) mmol/L Calcium 9.3 (8.6-10.3) mg/dl Phosphorus (2.5-4.9) mg/dl Magnesium (1.7-2.4) mg/dl Total Bilirubin (0.2-1.0) mg/dl AST (13-39) U/L ALT (7-52) U/L Alkaline Phosphatase (34-104) U/L Total Creatine Kinase (26-192) U/L C-Reactive Protein (0-0.5) mg/dl Total Protein (6.0-8.3) gm/dl Albumin (3.4-5.0) gm/dl Globulin (2.5-4.0) gm/dl Albumin/Globulin Ratio (0.9-2) Triglycerides (0-150) mg/dl Procalcitonin (0-0.5) ng/ml Urine Color Urine Appearance (Clear) Urine pH (4.5-7.5) Ur Specific [place] (1.000-1.030) Urine Protein (Negative) Urine Glucose (UA) (Negative) Urine Ketones (Negative) Urine Blood (Negative) Urine Nitrite (Negative) Urine Bilirubin (Negative) Urine Urobilinogen (Negative) Ur Leukocyte Esterase (Negative) Urine WBC (Auto) (0-5) /hpf Urine RBC (Auto) (0-4) /hpf U Hyaline Cast (Auto) (0-5) /lpf U Epithel Cells (Auto) (0-5) /lpf Urine Bacteria (Auto) (Negative) Ur Renal Epithelial Cell (0-5) /lpf Amorphous Sediment (None Prsent) Urine Yeast Urine Osmolality (500-800) mOsm/kg Ur Random Creatinine mg/dl Ur Random Sodium mmol/L Stool Occult Bld Scrn (Negative) A. phagocytophilum DNA (Negative) Hep Bs Antigen (NON-REACTIVE) Hep Bs Ag Confirmation Hep Bs Antibody, Quant (> OR = 10) mIU/mL Hep B Core IgM Ab (NON-REACTIVE) Blood Type Antibody Screen Crossmatch 02/14/23 02/14/23 02/14/23 Range/Units 11:40 16:58 20:36 WBC (4.8-10.8) K/ul RBC (4.20-5.40) M/uL Hgb (12.0-16.0) g/dl Hct (37.0-47.0) % MCV (80.0-100.0) fL MCH (25.0-34.0) pg MCHC (32.0-36.0) g/dL RDW Std Deviation (36.4-46.3) fL RDW Coeff of Mari (11.5-14.5) % Plt Count (130-400) K/uL MPV (9.4-12.4) fL Immature Gran % (Auto) % Neut % (Auto) % Lymph % (Auto) % [place] % (Auto) % Eos % (Auto) % Baso % (Auto) % Neut # (Auto) (1.40-6.50) K/uL Lymph # (Auto) (1.20-3.40) K/uL Ste[place]s # (Auto) (0.11-0.59) K/uL Eos # (Auto) (0.00-0.50) K/uL Baso # (Auto) (0.00-0.20) K/uL Immature Gran # (Auto) (0.01-0.20) K/uL Absolute Nucleated RBC (0.00-0.12) K/uL Nucleated RBC % (auto) % Neutrophils % (Manual) % Lymphocytes % (Manual) % Monocytes % (Manual) % Eosinophils % (Manual) % Metamyelocytes % (Man) % Myelocytes % (Man) % Plasma Cell % (Manual) % Neutrophils # (Manual) (1.40-6.50) K/uL Total Absolute Neuts (1.4-6.5) K/uL Lymphocytes # (Manual) (1.2-3.4) K/uL Total Abs Lymphocytes (1.2-3.4) K/uL Monocytes # (Manual) (0.11-0.59) K/uL Eosinophils # (Manual) (0-0.50) K/uL Metamyelocytes # (Man) (0-0) K/uL Myelocytes # (Manual) (0-0) K/uL Plasma Cell # (Manual) (0-0) K/uL Hypersegmented Neuts Blood Smear Review Toxic Vacuolation Hypochromasia Polychromasia Spherocytes Echinocytes PT (9.0-12.0) Seconds INR (0.9-1.1) APTT (21.0-31.0) Seconds PTT Ratio Sodium (136-145) mmol/L Potassium (3.5-5.1) mmol/L Chloride (98-107) mmol/L Carbon Dioxide (21-32) mmol/L Anion Gap (3-11) BUN (6-23) mg/dl Creatinine (0.6-1.2) mg/dl Est Cr Clr Drug Dosing ml/min Est GFR ( Amer) ml/min Est GFR (Non-Af Amer) ml/min BUN/Creatinine Ratio (10-20) Glucose (70-99(Fasting)) mg/dl POC Glucose 150 H 183 H 151 H (70-99) mg/dl Lactate (0.4-2.0) mmol/L Calcium (8.6-10.3) mg/dl Phosphorus (2.5-4.9) mg/dl Magnesium (1.7-2.4) mg/dl Total Bilirubin (0.2-1.0) mg/dl AST (13-39) U/L ALT (7-52) U/L Alkaline Phosphatase (34-104) U/L Total Creatine Kinase (26-192) U/L C-Reactive Protein (0-0.5) mg/dl Total Protein (6.0-8.3) gm/dl Albumin (3.4-5.0) gm/dl Globulin (2.5-4.0) gm/dl Albumin/Globulin Ratio (0.9-2) Triglycerides (0-150) mg/dl Procalcitonin (0-0.5) ng/ml Urine Color Urine Appearance (Clear) Urine pH (4.5-7.5) Ur Specific [place] (1.000-1.030) Urine Protein (Negative) Urine Glucose (UA) (Negative) Urine Ketones (Negative) Urine Blood (Negative) Urine Nitrite (Negative) Urine Bilirubin (Negative) Urine Urobilinogen (Negative) Ur Leukocyte Esterase (Negative) Urine WBC (Auto) (0-5) /hpf Urine RBC (Auto) (0-4) /hpf U Hyaline Cast (Auto) (0-5) /lpf U Epithel Cells (Auto) (0-5) /lpf Urine Bacteria (Auto) (Negative) Ur Renal Epithelial Cell (0-5) /lpf Amorphous Sediment (None Prsent) Urine Yeast Urine Osmolality (500-800) mOsm/kg Ur Random Creatinine mg/dl Ur Random Sodium mmol/L Stool Occult Bld Scrn (Negative) A. phagocytophilum DNA (Negative) Hep Bs Antigen (NON-REACTIVE) Hep Bs Ag Confirmation Hep Bs Antibody, Quant (> OR = 10) mIU/mL Hep B Core IgM Ab (NON-REACTIVE) Blood Type Antibody Screen Crossmatch 02/15/23 02/15/23 02/15/23 Range/Units 07:55 09:50 12:02 WBC 8.63 (4.8-10.8) K/ul RBC 3.11 L (4.20-5.40) M/uL Hgb 8.2 L (12.0-16.0) g/dl Hct 25.6 L (37.0-47.0) % MCV 82.3 (80.0-100.0) fL MCH 26.4 (25.0-34.0) pg MCHC 32.0 (32.0-36.0) g/dL RDW Std Deviation 50.4 H (36.4-46.3) fL RDW Coeff of Mari 16.8 H (11.5-14.5) % Plt Count 282 (130-400) K/uL MPV 9.8 (9.4-12.4) fL Immature Gran % (Auto) % Neut % (Auto) % Lymph % (Auto) % Stearns % (Auto) % Eos % (Auto) % Baso % (Auto) % Neut # (Auto) (1.40-6.50) K/uL Lymph # (Auto) (1.20-3.40) K/uL [place]s # (Auto) (0.11-0.59) K/uL Eos # (Auto) (0.00-0.50) K/uL Baso # (Auto) (0.00-0.20) K/uL Immature Gran # (Auto) (0.01-0.20) K/uL Absolute Nucleated RBC 0.02 (0.00-0.12) K/uL Nucleated RBC % (auto) 0.2 % Neutrophils % (Manual) % Lymphocytes % (Manual) % Monocytes % (Manual) % Eosinophils % (Manual) % Metamyelocytes % (Man) % Myelocytes % (Man) % Plasma Cell % (Manual) % Neutrophils # (Manual) (1.40-6.50) K/uL Total Absolute Neuts (1.4-6.5) K/uL Lymphocytes # (Manual) (1.2-3.4) K/uL Total Abs Lymphocytes (1.2-3.4) K/uL Monocytes # (Manual) (0.11-0.59) K/uL Eosinophils # (Manual) (0-0.50) K/uL Metamyelocytes # (Man) (0-0) K/uL Myelocytes # (Manual) (0-0) K/uL Plasma Cell # (Manual) (0-0) K/uL Hypersegmented Neuts Blood Smear Review Toxic Vacuolation Hypochromasia Polychromasia Spherocytes Echinocytes PT (9.0-12.0) Seconds INR (0.9-1.1) APTT (21.0-31.0) Seconds PTT Ratio Sodium 131 L (136-145) mmol/L Potassium 4.0 (3.5-5.1) mmol/L Chloride 96 L (98-107) mmol/L Carbon Dioxide 26 (21-32) mmol/L Anion Gap 9 (3-11) BUN 22 (6-23) mg/dl Creatinine 1.18 (0.6-1.2) mg/dl Est Cr Clr Drug Dosing 31.9 ml/min Est GFR ( Amer) 47.7 ml/min Est GFR (Non-Af Amer) 41.1 ml/min BUN/Creatinine Ratio 18.6 (10-20) Glucose 211 H (70-99(Fasting)) mg/dl POC Glucose 126 H 227 H (70-99) mg/dl Lactate (0.4-2.0) mmol/L Calcium 9.0 (8.6-10.3) mg/dl Phosphorus (2.5-4.9) mg/dl Magnesium (1.7-2.4) mg/dl Total Bilirubin (0.2-1.0) mg/dl AST (13-39) U/L ALT (7-52) U/L Alkaline Phosphatase (34-104) U/L Total Creatine Kinase (26-192) U/L C-Reactive Protein (0-0.5) mg/dl Total Protein (6.0-8.3) gm/dl Albumin (3.4-5.0) gm/dl Globulin (2.5-4.0) gm/dl Albumin/Globulin Ratio (0.9-2) Triglycerides (0-150) mg/dl Procalcitonin (0-0.5) ng/ml Urine Color Urine Appearance (Clear) Urine pH (4.5-7.5) Ur Specific [place] (1.000-1.030) Urine Protein (Negative) Urine Glucose (UA) (Negative) Urine Ketones (Negative) Urine Blood (Negative) Urine Nitrite (Negative) Urine Bilirubin (Negative) Urine Urobilinogen (Negative) Ur Leukocyte Esterase (Negative) Urine WBC (Auto) (0-5) /hpf Urine RBC (Auto) (0-4) /hpf U Hyaline Cast (Auto) (0-5) /lpf U Epithel Cells (Auto) (0-5) /lpf Urine Bacteria (Auto) (Negative) Ur Renal Epithelial Cell (0-5) /lpf Amorphous Sediment (None Prsent) Urine Yeast Urine Osmolality (500-800) mOsm/kg Ur Random Creatinine mg/dl Ur Random Sodium mmol/L Stool Occult Bld Scrn (Negative) A. phagocytophilum DNA (Negative) Hep Bs Antigen (NON-REACTIVE) Hep Bs Ag Confirmation Hep Bs Antibody, Quant (> OR = 10) mIU/mL Hep B Core IgM Ab (NON-REACTIVE) Blood Type Antibody Screen Crossmatch 02/15/23 02/15/23 02/16/23 Range/Units 16:42 20:31 06:50 WBC 8.94 (4.8-10.8) K/ul RBC 3.01 L (4.20-5.40) M/uL Hgb 7.9 L (12.0-16.0) g/dl Hct 24.7 L (37.0-47.0) % MCV 82.1 (80.0-100.0) fL MCH 26.2 (25.0-34.0) pg MCHC 32.0 (32.0-36.0) g/dL RDW Std Deviation 51.0 H (36.4-46.3) fL RDW Coeff of Mari 16.9 H (11.5-14.5) % Plt Count 229 (130-400) K/uL MPV 10.6 (9.4-12.4) fL Immature Gran % (Auto) % Neut % (Auto) % Lymph % (Auto) % [place]s % (Auto) % Eos % (Auto) % Baso % (Auto) % Neut # (Auto) (1.40-6.50) K/uL Lymph # (Auto) (1.20-3.40) K/uL [place]s # (Auto) (0.11-0.59) K/uL Eos # (Auto) (0.00-0.50) K/uL Baso # (Auto) (0.00-0.20) K/uL Immature Gran # (Auto) (0.01-0.20) K/uL Absolute Nucleated RBC (0.00-0.12) K/uL Nucleated RBC % (auto) % Neutrophils % (Manual) % Lymphocytes % (Manual) % Monocytes % (Manual) % Eosinophils % (Manual) % Metamyelocytes % (Man) % Myelocytes % (Man) % Plasma Cell % (Manual) % Neutrophils # (Manual) (1.40-6.50) K/uL Total Absolute Neuts (1.4-6.5) K/uL Lymphocytes # (Manual) (1.2-3.4) K/uL Total Abs Lymphocytes (1.2-3.4) K/uL Monocytes # (Manual) (0.11-0.59) K/uL Eosinophils # (Manual) (0-0.50) K/uL Metamyelocytes # (Man) (0-0) K/uL Myelocytes # (Manual) (0-0) K/uL Plasma Cell # (Manual) (0-0) K/uL Hypersegmented Neuts Blood Smear Review Toxic Vacuolation Hypochromasia Polychromasia Spherocytes Echinocytes PT (9.0-12.0) Seconds INR (0.9-1.1) APTT (21.0-31.0) Seconds PTT Ratio Sodium 134 L (136-145) mmol/L Potassium 3.5 (3.5-5.1) mmol/L Chloride 96 L (98-107) mmol/L Carbon Dioxide 28 (21-32) mmol/L Anion Gap 10 (3-11) BUN 26 H (6-23) mg/dl Creatinine 1.32 H (0.6-1.2) mg/dl Est Cr Clr Drug Dosing 28.5 ml/min Est GFR ( Amer) 41.6 ml/min Est GFR (Non-Af Amer) 35.9 ml/min BUN/Creatinine Ratio 19.7 (10-20) Glucose 109 H (70-99(Fasting)) mg/dl POC Glucose 146 H 124 H (70-99) mg/dl Lactate (0.4-2.0) mmol/L Calcium 9.1 (8.6-10.3) mg/dl Phosphorus (2.5-4.9) mg/dl Magnesium (1.7-2.4) mg/dl Total Bilirubin (0.2-1.0) mg/dl AST (13-39) U/L ALT (7-52) U/L Alkaline Phosphatase (34-104) U/L Total Creatine Kinase (26-192) U/L C-Reactive Protein (0-0.5) mg/dl Total Protein (6.0-8.3) gm/dl Albumin (3.4-5.0) gm/dl Globulin (2.5-4.0) gm/dl Albumin/Globulin Ratio (0.9-2) Triglycerides (0-150) mg/dl Procalcitonin (0-0.5) ng/ml Urine Color Urine Appearance (Clear) Urine pH (4.5-7.5) Ur Specific [place] (1.000-1.030) Urine Protein (Negative) Urine Glucose (UA) (Negative) Urine Ketones (Negative) Urine Blood (Negative) Urine Nitrite (Negative) Urine Bilirubin (Negative) Urine Urobilinogen (Negative) Ur Leukocyte Esterase (Negative) Urine WBC (Auto) (0-5) /hpf Urine RBC (Auto) (0-4) /hpf U Hyaline Cast (Auto) (0-5) /lpf U Epithel Cells (Auto) (0-5) /lpf Urine Bacteria (Auto) (Negative) Ur Renal Epithelial Cell (0-5) /lpf Amorphous Sediment (None Prsent) Urine Yeast Urine Osmolality (500-800) mOsm/kg Ur Random Creatinine mg/dl Ur Random Sodium mmol/L Stool Occult Bld Scrn (Negative) A. phagocytophilum DNA (Negative) Hep Bs Antigen (NON-REACTIVE) Hep Bs Ag Confirmation Hep Bs Antibody, Quant (> OR = 10) mIU/mL Hep B Core IgM Ab (NON-REACTIVE) Blood Type Antibody Screen Crossmatch 02/16/23 02/16/23 02/16/23 Range/Units 07:33 09:08 11:29 WBC (4.8-10.8) K/ul RBC (4.20-5.40) M/uL Hgb (12.0-16.0) g/dl Hct (37.0-47.0) % MCV (80.0-100.0) fL MCH (25.0-34.0) pg MCHC (32.0-36.0) g/dL RDW Std Deviation (36.4-46.3) fL RDW Coeff of Mari (11.5-14.5) % Plt Count (130-400) K/uL MPV (9.4-12.4) fL Immature Gran % (Auto) % Neut % (Auto) % Lymph % (Auto) % [place] % (Auto) % Eos % (Auto) % Baso % (Auto) % Neut # (Auto) (1.40-6.50) K/uL Lymph # (Auto) (1.20-3.40) K/uL [place] # (Auto) (0.11-0.59) K/uL Eos # (Auto) (0.00-0.50) K/uL Baso # (Auto) (0.00-0.20) K/uL Immature Gran # (Auto) (0.01-0.20) K/uL Absolute Nucleated RBC (0.00-0.12) K/uL Nucleated RBC % (auto) % Neutrophils % (Manual) % Lymphocytes % (Manual) % Monocytes % (Manual) % Eosinophils % (Manual) % Metamyelocytes % (Man) % Myelocytes % (Man) % Plasma Cell % (Manual) % Neutrophils # (Manual) (1.40-6.50) K/uL Total Absolute Neuts (1.4-6.5) K/uL Lymphocytes # (Manual) (1.2-3.4) K/uL Total Abs Lymphocytes (1.2-3.4) K/uL Monocytes # (Manual) (0.11-0.59) K/uL Eosinophils # (Manual) (0-0.50) K/uL Metamyelocytes # (Man) (0-0) K/uL Myelocytes # (Manual) (0-0) K/uL Plasma Cell # (Manual) (0-0) K/uL Hypersegmented Neuts Blood Smear Review Toxic Vacuolation Hypochromasia Polychromasia Spherocytes Echinocytes PT (9.0-12.0) Seconds INR (0.9-1.1) APTT (21.0-31.0) Seconds PTT Ratio Sodium (136-145) mmol/L Potassium (3.5-5.1) mmol/L Chloride (98-107) mmol/L Carbon Dioxide (21-32) mmol/L Anion Gap (3-11) BUN (6-23) mg/dl Creatinine (0.6-1.2) mg/dl Est Cr Clr Drug Dosing ml/min Est GFR ( Amer) ml/min Est GFR (Non-Af Amer) ml/min BUN/Creatinine Ratio (10-20) Glucose (70-99(Fasting)) mg/dl POC Glucose 116 H 163 H (70-99) mg/dl Lactate (0.4-2.0) mmol/L Calcium (8.6-10.3) mg/dl Phosphorus (2.5-4.9) mg/dl Magnesium (1.7-2.4) mg/dl Total Bilirubin (0.2-1.0) mg/dl AST (13-39) U/L ALT (7-52) U/L Alkaline Phosphatase (34-104) U/L Total Creatine Kinase (26-192) U/L C-Reactive Protein 23.61 H (0-0.5) mg/dl Total Protein (6.0-8.3) gm/dl Albumin (3.4-5.0) gm/dl Globulin (2.5-4.0) gm/dl Albumin/Globulin Ratio (0.9-2) Triglycerides (0-150) mg/dl Procalcitonin 1.92 H (0-0.5) ng/ml Urine Color Urine Appearance (Clear) Urine pH (4.5-7.5) Ur Specific [place] (1.000-1.030) Urine Protein (Negative) Urine Glucose (UA) (Negative) Urine Ketones (Negative) Urine Blood (Negative) Urine Nitrite (Negative) Urine Bilirubin (Negative) Urine Urobilinogen (Negative) Ur Leukocyte Esterase (Negative) Urine WBC (Auto) (0-5) /hpf Urine RBC (Auto) (0-4) /hpf U Hyaline Cast (Auto) (0-5) /lpf U Epithel Cells (Auto) (0-5) /lpf Urine Bacteria (Auto) (Negative) Ur Renal Epithelial Cell (0-5) /lpf Amorphous Sediment (None Prsent) Urine Yeast Urine Osmolality (500-800) mOsm/kg Ur Random Creatinine mg/dl Ur Random Sodium mmol/L Stool Occult Bld Scrn (Negative) A. phagocytophilum DNA (Negative) Hep Bs Antigen (NON-REACTIVE) Hep Bs Ag Confirmation Hep Bs Antibody, Quant (> OR = 10) mIU/mL Hep B Core IgM Ab (NON-REACTIVE) Blood Type Antibody Screen Crossmatch 02/16/23 02/16/23 02/17/23 Range/Units 16:37 20:06 07:27 WBC 6.90 (4.8-10.8) K/ul RBC 2.99 L (4.20-5.40) M/uL Hgb 7.7 L (12.0-16.0) g/dl Hct 23.8 L (37.0-47.0) % MCV 79.6 L (80.0-100.0) fL MCH 25.8 (25.0-34.0) pg MCHC 32.4 (32.0-36.0) g/dL RDW Std Deviation 49.1 H (36.4-46.3) fL RDW Coeff of Mari 16.9 H (11.5-14.5) % Plt Count 158 (130-400) K/uL MPV 10.7 (9.4-12.4) fL Immature Gran % (Auto) 5.2 % Neut % (Auto) 85.8 % Lymph % (Auto) 4.8 % [place] % (Auto) 4.1 % Eos % (Auto) 0.0 % Baso % (Auto) 0.1 % Neut # (Auto) 5.92 (1.40-6.50) K/uL Lymph # (Auto) 0.33 L (1.20-3.40) K/uL [place] # (Auto) 0.28 (0.11-0.59) K/uL Eos # (Auto) 0.00 (0.00-0.50) K/uL Baso # (Auto) 0.01 (0.00-0.20) K/uL Immature Gran # (Auto) 0.36 H (0.01-0.20) K/uL Absolute Nucleated RBC (0.00-0.12) K/uL Nucleated RBC % (auto) % Neutrophils % (Manual) % Lymphocytes % (Manual) % Monocytes % (Manual) % Eosinophils % (Manual) % Metamyelocytes % (Man) % Myelocytes % (Man) % Plasma Cell % (Manual) % Neutrophils # (Manual) (1.40-6.50) K/uL Total Absolute Neuts (1.4-6.5) K/uL Lymphocytes # (Manual) (1.2-3.4) K/uL Total Abs Lymphocytes (1.2-3.4) K/uL Monocytes # (Manual) (0.11-0.59) K/uL Eosinophils # (Manual) (0-0.50) K/uL Metamyelocytes # (Man) (0-0) K/uL Myelocytes # (Manual) (0-0) K/uL Plasma Cell # (Manual) (0-0) K/uL Hypersegmented Neuts Blood Smear Review Toxic Vacuolation Hypochromasia Polychromasia 1+ Spherocytes Echinocytes PT (9.0-12.0) Seconds INR (0.9-1.1) APTT (21.0-31.0) Seconds PTT Ratio Sodium 135 L (136-145) mmol/L Potassium 3.1 L (3.5-5.1) mmol/L Chloride 99 (98-107) mmol/L Carbon Dioxide 26 (21-32) mmol/L Anion Gap 10 (3-11) BUN 26 H (6-23) mg/dl Creatinine 1.50 H (0.6-1.2) mg/dl Est Cr Clr Drug Dosing 25.1 ml/min Est GFR ( Amer) 35.7 ml/min Est GFR (Non-Af Amer) 30.8 ml/min BUN/Creatinine Ratio 17.3 (10-20) Glucose 60 L (70-99(Fasting)) mg/dl POC Glucose 137 H 158 H (70-99) mg/dl Lactate (0.4-2.0) mmol/L Calcium 8.5 L (8.6-10.3) mg/dl Phosphorus (2.5-4.9) mg/dl Magnesium (1.7-2.4) mg/dl Total Bilirubin 0.8 (0.2-1.0) mg/dl AST 87 H (13-39) U/L ALT 41 (7-52) U/L Alkaline Phosphatase 255 H (34-104) U/L Total Creatine Kinase (26-192) U/L C-Reactive Protein (0-0.5) mg/dl Total Protein 5.8 L (6.0-8.3) gm/dl Albumin 2.8 L (3.4-5.0) gm/dl Globulin 3.0 (2.5-4.0) gm/dl Albumin/Globulin Ratio 0.9 (0.9-2) Triglycerides (0-150) mg/dl Procalcitonin (0-0.5) ng/ml Urine Color Urine Appearance (Clear) Urine pH (4.5-7.5) Ur Specific [place] (1.000-1.030) Urine Protein (Negative) Urine Glucose (UA) (Negative) Urine Ketones (Negative) Urine Blood (Negative) Urine Nitrite (Negative) Urine Bilirubin (Negative) Urine Urobilinogen (Negative) Ur Leukocyte Esterase (Negative) Urine WBC (Auto) (0-5) /hpf Urine RBC (Auto) (0-4) /hpf U Hyaline Cast (Auto) (0-5) /lpf U Epithel Cells (Auto) (0-5) /lpf Urine Bacteria (Auto) (Negative) Ur Renal Epithelial Cell (0-5) /lpf Amorphous Sediment (None Prsent) Urine Yeast Urine Osmolality (500-800) mOsm/kg Ur Random Creatinine mg/dl Ur Random Sodium mmol/L Stool Occult Bld Scrn (Negative) A. phagocytophilum DNA Positive A (Negative) Hep Bs Antigen (NON-REACTIVE) Hep Bs Ag Confirmation Hep Bs Antibody, Quant (> OR = 10) mIU/mL Hep B Core IgM Ab (NON-REACTIVE) Blood Type Antibody Screen Crossmatch 02/17/23 02/17/2302/17/23 Range/Units 07:33 10:28 11:48 WBC (4.8-10.8) K/ul RBC (4.20-5.40) M/uL Hgb (12.0-16.0) g/dl Hct (37.0-47.0) % MCV (80.0-100.0) fL MCH (25.0-34.0) pg MCHC (32.0-36.0) g/dL RDW Std Deviation (36.4-46.3) fL RDW Coeff of Mari (11.5-14.5) % Plt Count (130-400) K/uL MPV (9.4-12.4) fL Immature Gran % (Auto) % Neut % (Auto) % Lymph % (Auto) % [place] % (Auto) % Eos % (Auto) % Baso % (Auto) % Neut # (Auto) (1.40-6.50) K/uL Lymph # (Auto) (1.20-3.40) K/uL [place] # (Auto) (0.11-0.59) K/uL Eos # (Auto) (0.00-0.50) K/uL Baso # (Auto) (0.00-0.20) K/uL Immature Gran # (Auto) (0.01-0.20) K/uL Absolute Nucleated RBC (0.00-0.12) K/uL Nucleated RBC % (auto) % Neutrophils % (Manual) % Lymphocytes % (Manual) % Monocytes % (Manual) % Eosinophils % (Manual) % Metamyelocytes % (Man) % Myelocytes % (Man) % Plasma Cell % (Manual) % Neutrophils # (Manual) (1.40-6.50) K/uL Total Absolute Neuts (1.4-6.5) K/uL Lymphocytes # (Manual) (1.2-3.4) K/uL Total Abs Lymphocytes (1.2-3.4) K/uL Monocytes # (Manual) (0.11-0.59) K/uL Eosinophils # (Manual) (0-0.50) K/uL Metamyelocytes # (Man) (0-0) K/uL Myelocytes # (Manual) (0-0) K/uL Plasma Cell # (Manual) (0-0) K/uL Hypersegmented Neuts Blood Smear Review Toxic Vacuolation Hypochromasia Polychromasia Spherocytes Echinocytes PT (9.0-12.0) Seconds INR (0.9-1.1) APTT (21.0-31.0) Seconds PTT Ratio Sodium (136-145) mmol/L Potassium (3.5-5.1) mmol/L Chloride (98-107) mmol/L Carbon Dioxide (21-32) mmol/L Anion Gap (3-11) BUN (6-23) mg/dl Creatinine (0.6-1.2) mg/dl Est Cr Clr Drug Dosing ml/min Est GFR ( Amer) ml/min Est GFR (Non-Af Amer) ml/min BUN/Creatinine Ratio (10-20) Glucose (70-99(Fasting)) mg/dl POC Glucose 74 68 L* (70-99) mg/dl Lactate (0.4-2.0) mmol/L Calcium (8.6-10.3) mg/dl Phosphorus (2.5-4.9) mg/dl Magnesium (1.7-2.4) mg/dl Total Bilirubin (0.2-1.0) mg/dl AST (13-39) U/L ALT (7-52) U/L Alkaline Phosphatase (34-104) U/L Total Creatine Kinase (26-192) U/L C-Reactive Protein (0-0.5) mg/dl Total Protein (6.0-8.3) gm/dl Albumin (3.4-5.0) gm/dl Globulin (2.5-4.0) gm/dl Albumin/Globulin Ratio (0.9-2) Triglycerides (0-150) mg/dl Procalcitonin (0-0.5) ng/ml Urine Color Urine Appearance (Clear) Urine pH (4.5-7.5) Ur Specific [place] (1.000-1.030) Urine Protein (Negative) Urine Glucose (UA) (Negative) Urine Ketones (Negative) Urine Blood (Negative) Urine Nitrite (Negative) Urine Bilirubin (Negative) Urine Urobilinogen (Negative) Ur Leukocyte Esterase (Negative) Urine WBC (Auto) (0-5) /hpf Urine RBC (Auto) (0-4) /hpf U Hyaline Cast (Auto) (0-5) /lpf U Epithel Cells (Auto) (0-5) /lpf Urine Bacteria (Auto) (Negative) Ur Renal Epithelial Cell (0-5) /lpf Amorphous Sediment (None Prsent) Urine Yeast Urine Osmolality (500-800) mOsm/kg Ur Random Creatinine mg/dl Ur Random Sodium mmol/L Stool Occult Bld Scrn (Negative) A. phagocytophilum DNA (Negative) Hep Bs Antigen (NON-REACTIVE) Hep Bs Ag Confirmation Hep Bs Antibody, Quant (> OR = 10) mIU/mL Hep B Core IgM Ab (NON-REACTIVE) Blood Type O Positive Antibody Screen NEGATIVE Crossmatch See Detail 02/17/23 02/17/23 02/17/23 Range/Units 11:54 12:21 16:12 WBC (4.8-10.8) K/ul RBC (4.20-5.40) M/uL Hgb (12.0-16.0) g/dl Hct (37.0-47.0) % MCV (80.0-100.0) fL MCH (25.0-34.0) pg MCHC (32.0-36.0) g/dL RDW Std Deviation (36.4-46.3) fL RDW Coeff of Mari (11.5-14.5) % Plt Count (130-400) K/uL MPV (9.4-12.4) fL Immature Gran % (Auto) % Neut % (Auto) % Lymph % (Auto) % Stearns % (Auto) % Eos % (Auto) % Baso % (Auto) % Neut # (Auto) (1.40-6.50) K/uL Lymph # (Auto) (1.20-3.40) K/uL Ste[place]s # (Auto) (0.11-0.59) K/uL Eos # (Auto) (0.00-0.50) K/uL Baso # (Auto) (0.00-0.20) K/uL Immature Gran # (Auto) (0.01-0.20) K/uL Absolute Nucleated RBC (0.00-0.12) K/uL Nucleated RBC % (auto) % Neutrophils % (Manual) % Lymphocytes % (Manual) % Monocytes % (Manual) % Eosinophils % (Manual) % Metamyelocytes % (Man) % Myelocytes % (Man) % Plasma Cell % (Manual) % Neutrophils # (Manual) (1.40-6.50) K/uL Total Absolute Neuts (1.4-6.5) K/uL Lymphocytes # (Manual) (1.2-3.4) K/uL Total Abs Lymphocytes (1.2-3.4) K/uL Monocytes # (Manual) (0.11-0.59) K/uL Eosinophils # (Manual) (0-0.50) K/uL Metamyelocytes # (Man) (0-0) K/uL Myelocytes # (Manual) (0-0) K/uL Plasma Cell # (Manual) (0-0) K/uL Hypersegmented Neuts Blood Smear Review Toxic Vacuolation Hypochromasia Polychromasia Spherocytes Echinocytes PT (9.0-12.0) Seconds INR (0.9-1.1) APTT (21.0-31.0) Seconds PTT Ratio Sodium (136-145) mmol/L Potassium (3.5-5.1) mmol/L Chloride (98-107) mmol/L Carbon Dioxide (21-32) mmol/L Anion Gap (3-11) BUN (6-23) mg/dl Creatinine (0.6-1.2) mg/dl Est Cr Clr Drug Dosing ml/min Est GFR ( Amer) ml/min Est GFR (Non-Af Amer) ml/min BUN/Creatinine Ratio (10-20) Glucose (70-99(Fasting)) mg/dl POC Glucose 63 L* 103 H 118 H (70-99) mg/dl Lactate (0.4-2.0) mmol/L Calcium (8.6-10.3) mg/dl Phosphorus (2.5-4.9) mg/dl Magnesium (1.7-2.4) mg/dl Total Bilirubin (0.2-1.0) mg/dl AST (13-39) U/L ALT (7-52) U/L Alkaline Phosphatase (34-104) U/L Total Creatine Kinase (26-192) U/L C-Reactive Protein (0-0.5) mg/dl Total Protein (6.0-8.3) gm/dl Albumin (3.4-5.0) gm/dl Globulin (2.5-4.0) gm/dl Albumin/Globulin Ratio (0.9-2) Triglycerides (0-150) mg/dl Procalcitonin (0-0.5) ng/ml Urine Color Urine Appearance (Clear) Urine pH (4.5-7.5) Ur Specific [place] (1.000-1.030) Urine Protein (Negative) Urine Glucose (UA) (Negative) Urine Ketones (Negative) Urine Blood (Negative) Urine Nitrite (Negative) Urine Bilirubin (Negative) Urine Urobilinogen (Negative) Ur Leukocyte Esterase (Negative) Urine WBC (Auto) (0-5) /hpf Urine RBC (Auto) (0-4) /hpf U Hyaline Cast (Auto) (0-5) /lpf U Epithel Cells (Auto) (0-5) /lpf Urine Bacteria (Auto) (Negative) Ur Renal Epithelial Cell (0-5) /lpf Amorphous Sediment (None Prsent) Urine Yeast Urine Osmolality (500-800) mOsm/kg Ur Random Creatinine mg/dl Ur Random Sodium mmol/L Stool Occult Bld Scrn (Negative) A. phagocytophilum DNA (Negative) Hep Bs Antigen (NON-REACTIVE) Hep Bs Ag Confirmation Hep Bs Antibody, Quant (> OR = 10) mIU/mL Hep B Core IgM Ab (NON-REACTIVE) Blood Type Antibody Screen Crossmatch 02/17/23 02/17/23 02/17/23 Range/Units 16:59 17:00 17:58 WBC 6.38 (4.8-10.8) K/ul RBC 3.17 L (4.20-5.40) M/uL Hgb 8.4 L (12.0-16.0) g/dl Hct 25.2 L (37.0-47.0) % MCV 79.5 L (80.0-100.0) fL MCH 26.5 (25.0-34.0) pg MCHC 33.3 (32.0-36.0) g/dL RDW Std Deviation 48.4 H (36.4-46.3) fL RDW Coeff of Mari 16.7 H (11.5-14.5) % Plt Count 143 (130-400) K/uL MPV 11.4 (9.4-12.4) fL Immature Gran % (Auto) % Neut % (Auto) % Lymph % (Auto) % [place] % (Auto) % Eos % (Auto) % Baso % (Auto) % Neut # (Auto) (1.40-6.50) K/uL Lymph # (Auto) (1.20-3.40) K/uL [place] # (Auto) (0.11-0.59) K/uL Eos # (Auto) (0.00-0.50) K/uL Baso # (Auto) (0.00-0.20) K/uL Immature Gran # (Auto) (0.01-0.20) K/uL Absolute Nucleated RBC (0.00-0.12) K/uL Nucleated RBC % (auto) % Neutrophils % (Manual) % Lymphocytes % (Manual) % Monocytes % (Manual) % Eosinophils % (Manual) % Metamyelocytes % (Man) % Myelocytes % (Man) % Plasma Cell % (Manual) % Neutrophils # (Manual) (1.40-6.50) K/uL Total Absolute Neuts (1.4-6.5) K/uL Lymphocytes # (Manual) (1.2-3.4) K/uL Total Abs Lymphocytes (1.2-3.4) K/uL Monocytes # (Manual) (0.11-0.59) K/uL Eosinophils # (Manual) (0-0.50) K/uL Metamyelocytes # (Man) (0-0) K/uL Myelocytes # (Manual) (0-0) K/uL Plasma Cell # (Manual) (0-0) K/uL Hypersegmented Neuts Blood Smear Review Toxic Vacuolation Hypochromasia Polychromasia Spherocytes Echinocytes PT (9.0-12.0) Seconds INR (0.9-1.1) APTT (21.0-31.0) Seconds PTT Ratio Sodium 134 L (136-145) mmol/L Potassium 3.5 (3.5-5.1) mmol/L Chloride 101 (98-107) mmol/L Carbon Dioxide 22 (21-32) mmol/L Anion Gap 11 (3-11) BUN 25 H (6-23) mg/dl Creatinine 1.44 H (0.6-1.2) mg/dl Est Cr Clr Drug Dosing 26.1 ml/min Est GFR ( Amer) 37.5 ml/min Est GFR (Non-Af Amer) 32.3 ml/min BUN/Creatinine Ratio 17.4 (10-20) Glucose 110 H (70-99(Fasting)) mg/dl POC Glucose 105 H (70-99) mg/dl Lactate (0.4-2.0) mmol/L Calcium 8.5 L (8.6-10.3) mg/dl Phosphorus (2.5-4.9) mg/dl Magnesium (1.7-2.4) mg/dl Total Bilirubin 0.8 (0.2-1.0) mg/dl AST 69 H (13-39) U/L ALT 34 (7-52) U/L Alkaline Phosphatase 262 H (34-104) U/L Total Creatine Kinase (26-192) U/L C-Reactive Protein (0-0.5) mg/dl Total Protein 5.5 L (6.0-8.3) gm/dl Albumin 2.6 L (3.4-5.0) gm/dl Globulin 2.9 (2.5-4.0) gm/dl Albumin/Globulin Ratio 0.9 (0.9-2) Triglycerides (0-150) mg/dl Procalcitonin (0-0.5) ng/ml Urine Color Urine Appearance (Clear) Urine pH (4.5-7.5) Ur Specific [place] (1.000-1.030) Urine Protein (Negative) Urine Glucose (UA) (Negative) Urine Ketones (Negative) Urine Blood (Negative) Urine Nitrite (Negative) Urine Bilirubin (Negative) Urine Urobilinogen (Negative) Ur Leukocyte Esterase (Negative) Urine WBC (Auto) (0-5) /hpf Urine RBC (Auto) (0-4) /hpf U Hyaline Cast (Auto) (0-5) /lpf U Epithel Cells (Auto) (0-5) /lpf Urine Bacteria (Auto) (Negative) Ur Renal Epithelial Cell (0-5) /lpf Amorphous Sediment (None Prsent) Urine Yeast Urine Osmolality (500-800) mOsm/kg Ur Random Creatinine mg/dl Ur Random Sodium mmol/L Stool Occult Bld Scrn (Negative) A. phagocytophilum DNA (Negative) Hep Bs Antigen (NON-REACTIVE) Hep Bs Ag Confirmation Hep Bs Antibody, Quant (> OR = 10) mIU/mL Hep B Core IgM Ab (NON-REACTIVE) Blood Type Antibody Screen Crossmatch 02/18/23 02/18/23 02/18/23 Range/Units 00:04 06:24 06:49 WBC 4.47 L (4.8-10.8) K/ul RBC 3.28 L (4.20-5.40) M/uL Hgb 8.6 L (12.0-16.0) g/dl Hct 26.7 L (37.0-47.0) % MCV 81.4 (80.0-100.0) fL MCH 26.2 (25.0-34.0) pg MCHC 32.2 (32.0-36.0) g/dL RDW Std Deviation 50.3 H (36.4-46.3) fL RDW Coeff of Mari 16.7 H (11.5-14.5) % Plt Count 117 L (130-400) K/uL MPV 11.7 (9.4-12.4) fL Immature Gran % (Auto) 1.1 % Neut % (Auto) 91.3 % Lymph % (Auto) 4.0 % Ste[place]s % (Auto) 3.6 % Eos % (Auto) 0.0 % Baso % (Auto) 0.0 % Neut # (Auto) 4.08 (1.40-6.50) K/uL Lymph # (Auto) 0.18 L (1.20-3.40) K/uL Ste[place]s # (Auto) 0.16 (0.11-0.59) K/uL Eos # (Auto) 0.00 (0.00-0.50) K/uL Baso # (Auto) 0.00 (0.00-0.20) K/uL Immature Gran # (Auto) 0.05 (0.01-0.20) K/uL Absolute Nucleated RBC (0.00-0.12) K/uL Nucleated RBC % (auto) % Neutrophils % (Manual) % Lymphocytes % (Manual) % Monocytes % (Manual) % Eosinophils % (Manual) % Metamyelocytes % (Man) % Myelocytes % (Man) % Plasma Cell % (Manual) % Neutrophils # (Manual) (1.40-6.50) K/uL Total Absolute Neuts (1.4-6.5) K/uL Lymphocytes # (Manual) (1.2-3.4) K/uL Total Abs Lymphocytes (1.2-3.4) K/uL Monocytes # (Manual) (0.11-0.59) K/uL Eosinophils # (Manual) (0-0.50) K/uL Metamyelocytes # (Man) (0-0) K/uL Myelocytes # (Manual) (0-0) K/uL Plasma Cell # (Manual) (0-0) K/uL Hypersegmented Neuts Blood Smear Review Toxic Vacuolation 1+ Hypochromasia Polychromasia 1+ Spherocytes Echinocytes PT (9.0-12.0) Seconds INR (0.9-1.1) APTT (21.0-31.0) Seconds PTT Ratio Sodium 137 (136-145) mmol/L Potassium 3.2 L (3.5-5.1) mmol/L Chloride 106 (98-107) mmol/L Carbon Dioxide 22 (21-32) mmol/L Anion Gap 9 (3-11) BUN 29 H (6-23) mg/dl Creatinine 1.81 H D (0.6-1.2) mg/dl Est Cr Clr Drug Dosing 20.8 ml/min Est GFR ( Amer) 28.4 ml/min Est GFR (Non-Af Amer) 24.5 ml/min BUN/Creatinine Ratio 16.0 (10-20) Glucose 125 H (70-99(Fasting)) mg/dl POC Glucose 128 H 131 H (70-99) mg/dl Lactate (0.4-2.0) mmol/L Calcium 8.2 L (8.6-10.3) mg/dl Phosphorus (2.5-4.9) mg/dl Magnesium (1.7-2.4) mg/dl Total Bilirubin (0.2-1.0) mg/dl AST (13-39) U/L ALT (7-52) U/L Alkaline Phosphatase (34-104) U/L Total Creatine Kinase (26-192) U/L C-Reactive Protein (0-0.5) mg/dl Total Protein (6.0-8.3) gm/dl Albumin (3.4-5.0) gm/dl Globulin (2.5-4.0) gm/dl Albumin/Globulin Ratio (0.9-2) Triglycerides (0-150) mg/dl Procalcitonin (0-0.5) ng/ml Urine Color Urine Appearance (Clear) Urine pH (4.5-7.5) Ur Specific [place] (1.000-1.030) Urine Protein (Negative) Urine Glucose (UA) (Negative) Urine Ketones (Negative) Urine Blood (Negative) Urine Nitrite (Negative) Urine Bilirubin (Negative) Urine Urobilinogen (Negative) Ur Leukocyte Esterase (Negative) Urine WBC (Auto) (0-5) /hpf Urine RBC (Auto) (0-4) /hpf U Hyaline Cast (Auto) (0-5) /lpf U Epithel Cells (Auto) (0-5) /lpf Urine Bacteria (Auto) (Negative) Ur Renal Epithelial Cell (0-5) /lpf Amorphous Sediment (None Prsent) Urine Yeast Urine Osmolality (500-800) mOsm/kg Ur Random Creatinine mg/dl Ur Random Sodium mmol/L Stool Occult Bld Scrn (Negative) A. phagocytophilum DNA (Negative) Hep Bs Antigen (NON-REACTIVE) Hep Bs Ag Confirmation Hep Bs Antibody, Quant (> OR = 10) mIU/mL Hep B Core IgM Ab (NON-REACTIVE) Blood Type Antibody Screen Crossmatch 02/18/23 02/18/23 02/18/23 Range/Units 07:50 10:58 14:40 WBC (4.8-10.8) K/ul RBC (4.20-5.40) M/uL Hgb (12.0-16.0) g/dl Hct (37.0-47.0) % MCV (80.0-100.0) fL MCH (25.0-34.0) pg MCHC (32.0-36.0) g/dL RDW Std Deviation (36.4-46.3) fL RDW Coeff of Mari (11.5-14.5) % Plt Count (130-400) K/uL MPV (9.4-12.4) fL Immature Gran % (Auto) % Neut % (Auto) % Lymph % (Auto) % Stearns % (Auto) % Eos % (Auto) % Baso % (Auto) % Neut # (Auto) (1.40-6.50) K/uL Lymph # (Auto) (1.20-3.40) K/uL [place]s # (Auto) (0.11-0.59) K/uL Eos # (Auto) (0.00-0.50) K/uL Baso # (Auto) (0.00-0.20) K/uL Immature Gran # (Auto) (0.01-0.20) K/uL Absolute Nucleated RBC (0.00-0.12) K/uL Nucleated RBC % (auto) % Neutrophils % (Manual) % Lymphocytes % (Manual) % Monocytes % (Manual) % Eosinophils % (Manual) % Metamyelocytes % (Man) % Myelocytes % (Man) % Plasma Cell % (Manual) % Neutrophils # (Manual) (1.40-6.50) K/uL Total Absolute Neuts (1.4-6.5) K/uL Lymphocytes # (Manual) (1.2-3.4) K/uL Total Abs Lymphocytes (1.2-3.4) K/uL Monocytes # (Manual) (0.11-0.59) K/uL Eosinophils # (Manual) (0-0.50) K/uL Metamyelocytes # (Man) (0-0) K/uL Myelocytes # (Manual) (0-0) K/uL Plasma Cell # (Manual) (0-0) K/uL Hypersegmented Neuts Blood Smear Review Toxic Vacuolation Hypochromasia Polychromasia Spherocytes Echinocytes PT (9.0-12.0) Seconds INR (0.9-1.1) APTT (21.0-31.0) Seconds PTT Ratio Sodium (136-145) mmol/L Potassium (3.5-5.1) mmol/L Chloride (98-107) mmol/L Carbon Dioxide (21-32) mmol/L Anion Gap (3-11) BUN (6-23) mg/dl Creatinine (0.6-1.2) mg/dl Est Cr Clr Drug Dosing ml/min Est GFR ( Amer) ml/min Est GFR (Non-Af Amer) ml/min BUN/Creatinine Ratio (10-20) Glucose (70-99(Fasting)) mg/dl POC Glucose 134 H 140 H (70-99) mg/dl Lactate (0.4-2.0) mmol/L Calcium (8.6-10.3) mg/dl Phosphorus 4.2 (2.5-4.9) mg/dl Magnesium 1.5 L (1.7-2.4) mg/dl Total Bilirubin 0.9 (0.2-1.0) mg/dl AST 48 H (13-39) U/L ALT 26 (7-52) U/L Alkaline Phosphatase (34-104) U/L Total Creatine Kinase (26-192) U/L C-Reactive Protein (0-0.5) mg/dl Total Protein (6.0-8.3) gm/dl Albumin (3.4-5.0) gm/dl Globulin (2.5-4.0) gm/dl Albumin/Globulin Ratio (0.9-2) Triglycerides 262 H (0-150) mg/dl Procalcitonin (0-0.5) ng/ml Urine Color Urine Appearance (Clear) Urine pH (4.5-7.5) Ur Specific [place] (1.000-1.030) Urine Protein (Negative) Urine Glucose (UA) (Negative) Urine Ketones (Negative) Urine Blood (Negative) Urine Nitrite (Negative) Urine Bilirubin (Negative) Urine Urobilinogen (Negative) Ur Leukocyte Esterase (Negative) Urine WBC (Auto) (0-5) /hpf Urine RBC (Auto) (0-4) /hpf U Hyaline Cast (Auto) (0-5) /lpf U Epithel Cells (Auto) (0-5) /lpf Urine Bacteria (Auto) (Negative) Ur Renal Epithelial Cell (0-5) /lpf Amorphous Sediment (None Prsent) Urine Yeast Urine Osmolality (500-800) mOsm/kg Ur Random Creatinine mg/dl Ur Random Sodium mmol/L Stool Occult Bld Scrn (Negative) A. phagocytophilum DNA (Negative) Hep Bs Antigen (NON-REACTIVE) Hep Bs Ag Confirmation Hep Bs Antibody, Quant (> OR = 10) mIU/mL Hep B Core IgM Ab (NON-REACTIVE) Blood Type Antibody Screen Crossmatch 02/18/23 02/18/23 02/19/23 Range/Units 18:05 23:49 05:54 WBC (4.8-10.8) K/ul RBC (4.20-5.40) M/uL Hgb (12.0-16.0) g/dl Hct (37.0-47.0) % MCV (80.0-100.0) fL MCH (25.0-34.0) pg MCHC (32.0-36.0) g/dL RDW Std Deviation (36.4-46.3) fL RDW Coeff of Mari (11.5-14.5) % Plt Count (130-400) K/uL MPV (9.4-12.4) fL Immature Gran % (Auto) % Neut % (Auto) % Lymph % (Auto) % [place]s % (Auto) % Eos % (Auto) % Baso % (Auto) % Neut # (Auto) (1.40-6.50) K/uL Lymph # (Auto) (1.20-3.40) K/uL [place]s # (Auto) (0.11-0.59) K/uL Eos # (Auto) (0.00-0.50) K/uL Baso # (Auto) (0.00-0.20) K/uL Immature Gran # (Auto) (0.01-0.20) K/uL Absolute Nucleated RBC (0.00-0.12) K/uL Nucleated RBC % (auto) % Neutrophils % (Manual) % Lymphocytes % (Manual) % Monocytes % (Manual) % Eosinophils % (Manual) % Metamyelocytes % (Man) % Myelocytes % (Man) % Plasma Cell % (Manual) % Neutrophils # (Manual) (1.40-6.50) K/uL Total Absolute Neuts (1.4-6.5) K/uL Lymphocytes # (Manual) (1.2-3.4) K/uL Total Abs Lymphocytes (1.2-3.4) K/uL Monocytes # (Manual) (0.11-0.59) K/uL Eosinophils # (Manual) (0-0.50) K/uL Metamyelocytes # (Man) (0-0) K/uL Myelocytes # (Manual) (0-0) K/uL Plasma Cell # (Manual) (0-0) K/uL Hypersegmented Neuts Blood Smear Review Toxic Vacuolation Hypochromasia Polychromasia Spherocytes Echinocytes PT (9.0-12.0) Seconds INR (0.9-1.1) APTT (21.0-31.0) Seconds PTT Ratio Sodium (136-145) mmol/L Potassium (3.5-5.1) mmol/L Chloride (98-107) mmol/L Carbon Dioxide (21-32) mmol/L Anion Gap (3-11) BUN (6-23) mg/dl Creatinine (0.6-1.2) mg/dl Est Cr Clr Drug Dosing ml/min Est GFR ( Amer) ml/min Est GFR (Non-Af Amer) ml/min BUN/Creatinine Ratio (10-20) Glucose (70-99(Fasting)) mg/dl POC Glucose 173 H 256 H 254 H (70-99) mg/dl Lactate (0.4-2.0) mmol/L Calcium (8.6-10.3) mg/dl Phosphorus (2.5-4.9) mg/dl Magnesium (1.7-2.4) mg/dl Total Bilirubin (0.2-1.0) mg/dl AST (13-39) U/L ALT (7-52) U/L Alkaline Phosphatase (34-104) U/L Total Creatine Kinase (26-192) U/L C-Reactive Protein (0-0.5) mg/dl Total Protein (6.0-8.3) gm/dl Albumin (3.4-5.0) gm/dl Globulin (2.5-4.0) gm/dl Albumin/Globulin Ratio (0.9-2) Triglycerides (0-150) mg/dl Procalcitonin (0-0.5) ng/ml Urine Color Urine Appearance (Clear) Urine pH (4.5-7.5) Ur Specific [place] (1.000-1.030) Urine Protein (Negative) Urine Glucose (UA) (Negative) Urine Ketones (Negative) Urine Blood (Negative) Urine Nitrite (Negative) Urine Bilirubin (Negative) Urine Urobilinogen (Negative) Ur Leukocyte Esterase (Negative) Urine WBC (Auto) (0-5) /hpf Urine RBC (Auto) (0-4) /hpf U Hyaline Cast (Auto) (0-5) /lpf U Epithel Cells (Auto) (0-5) /lpf Urine Bacteria (Auto) (Negative) Ur Renal Epithelial Cell (0-5) /lpf Amorphous Sediment (None Prsent) Urine Yeast Urine Osmolality (500-800) mOsm/kg Ur Random Creatinine mg/dl Ur Random Sodium mmol/L Stool Occult Bld Scrn (Negative) A. phagocytophilum DNA (Negative) Hep Bs Antigen (NON-REACTIVE) Hep Bs Ag Confirmation Hep Bs Antibody, Quant (> OR = 10) mIU/mL Hep B Core IgM Ab (NON-REACTIVE) Blood Type Antibody Screen Crossmatch 02/19/23 02/19/23 02/19/23 Range/Units 06:11 11:35 15:57 WBC 13.89 H (4.8-10.8) K/ul RBC 3.06 L (4.20-5.40) M/uL Hgb 8.2 L (12.0-16.0) g/dl Hct 25.3 L (37.0-47.0) % MCV 82.7 (80.0-100.0) fL MCH 26.8 (25.0-34.0) pg MCHC 32.4 (32.0-36.0) g/dL RDW Std Deviation 53.1 H (36.4-46.3) fL RDW Coeff of Mari 17.6 H (11.5-14.5) % Plt Count 151 (130-400) K/uL MPV 12.1 (9.4-12.4) fL Immature Gran % (Auto) 1.1 % Neut % (Auto) 93.6 % Lymph % (Auto) 3.8 % Stearns % (Auto) 1.4 % Eos % (Auto) 0.0 % Baso % (Auto) 0.1 % Neut # (Auto) 13.00 H (1.40-6.50) K/uL Lymph # (Auto) 0.53 L (1.20-3.40) K/uL Ste[place]s # (Auto) 0.19 (0.11-0.59) K/uL Eos # (Auto) 0.00 (0.00-0.50) K/uL Baso # (Auto) 0.02 (0.00-0.20) K/uL Immature Gran # (Auto) 0.15 (0.01-0.20) K/uL Absolute Nucleated RBC (0.00-0.12) K/uL Nucleated RBC % (auto) % Neutrophils % (Manual) % Lymphocytes % (Manual) % Monocytes % (Manual) % Eosinophils % (Manual) % Metamyelocytes % (Man) % Myelocytes % (Man) % Plasma Cell % (Manual) % Neutrophils # (Manual) (1.40-6.50) K/uL Total Absolute Neuts (1.4-6.5) K/uL Lymphocytes # (Manual) (1.2-3.4) K/uL Total Abs Lymphocytes (1.2-3.4) K/uL Monocytes # (Manual) (0.11-0.59) K/uL Eosinophils # (Manual) (0-0.50) K/uL Metamyelocytes # (Man) (0-0) K/uL Myelocytes # (Manual) (0-0) K/uL Plasma Cell # (Manual) (0-0) K/uL Hypersegmented Neuts Blood Smear Review Toxic Vacuolation Hypochromasia Polychromasia 1+ Spherocytes Echinocytes 1+ PT (9.0-12.0) Seconds INR (0.9-1.1) APTT (21.0-31.0) Seconds PTT Ratio Sodium 134 L (136-145) mmol/L Potassium 4.1 D (3.5-5.1) mmol/L Chloride 102 (98-107) mmol/L Carbon Dioxide 23 (21-32) mmol/L Anion Gap 9 (3-11) BUN 47 H (6-23) mg/dl Creatinine 2.58 H D (0.6-1.2) mg/dl Est Cr Clr Drug Dosing 14.7 ml/min Est GFR ( Amer) 18.5 ml/min Est GFR (Non-Af Amer) 16.0 ml/min BUN/Creatinine Ratio 18.2 (10-20) Glucose 244 H (70-99(Fasting)) mg/dl POC Glucose 240 H 217 H (70-99) mg/dl Lactate (0.4-2.0) mmol/L Calcium 8.7 (8.6-10.3) mg/dl Phosphorus 3.1 D (2.5-4.9) mg/dl Magnesium 1.5 L (1.7-2.4) mg/dl Total Bilirubin (0.2-1.0) mg/dl AST (13-39) U/L ALT (7-52) U/L Alkaline Phosphatase 154 H (34-104) U/L Total Creatine Kinase (26-192) U/L C-Reactive Protein (0-0.5) mg/dl Total Protein (6.0-8.3) gm/dl Albumin (3.4-5.0) gm/dl Globulin (2.5-4.0) gm/dl Albumin/Globulin Ratio (0.9-2) Triglycerides (0-150) mg/dl Procalcitonin (0-0.5) ng/ml Urine Color Urine Appearance (Clear) Urine pH (4.5-7.5) Ur Specific [place] (1.000-1.030) Urine Protein (Negative) Urine Glucose (UA) (Negative) Urine Ketones (Negative) Urine Blood (Negative) Urine Nitrite (Negative) Urine Bilirubin (Negative) Urine Urobilinogen (Negative) Ur Leukocyte Esterase (Negative) Urine WBC (Auto) (0-5) /hpf Urine RBC (Auto) (0-4) /hpf U Hyaline Cast (Auto) (0-5) /lpf U Epithel Cells (Auto) (0-5) /lpf Urine Bacteria (Auto) (Negative) Ur Renal Epithelial Cell (0-5) /lpf Amorphous Sediment (None Prsent) Urine Yeast Urine Osmolality (500-800) mOsm/kg Ur Random Creatinine mg/dl Ur Random Sodium mmol/L Stool Occult Bld Scrn (Negative) A. phagocytophilum DNA (Negative) Hep Bs Antigen (NON-REACTIVE) Hep Bs Ag Confirmation Hep Bs Antibody, Quant (> OR = 10) mIU/mL Hep B Core IgM Ab (NON-REACTIVE) Blood Type Antibody Screen Crossmatch 02/19/23 02/19/23 02/20/23 Range/Units 18:07 18:30 00:41 WBC (4.8-10.8) K/ul RBC (4.20-5.40) M/uL Hgb (12.0-16.0) g/dl Hct (37.0-47.0) % MCV (80.0-100.0) fL MCH (25.0-34.0) pg MCHC (32.0-36.0) g/dL RDW Std Deviation (36.4-46.3) fL RDW Coeff of Mari (11.5-14.5) % Plt Count (130-400) K/uL MPV (9.4-12.4) fL Immature Gran % (Auto) % Neut % (Auto) % Lymph % (Auto) % [place] % (Auto) % Eos % (Auto) % Baso % (Auto) % Neut # (Auto) (1.40-6.50) K/uL Lymph # (Auto) (1.20-3.40) K/uL [place]s # (Auto) (0.11-0.59) K/uL Eos # (Auto) (0.00-0.50) K/uL Baso # (Auto) (0.00-0.20) K/uL Immature Gran # (Auto) (0.01-0.20) K/uL Absolute Nucleated RBC (0.00-0.12) K/uL Nucleated RBC % (auto) % Neutrophils % (Manual) % Lymphocytes % (Manual) % Monocytes % (Manual) % Eosinophils % (Manual) % Metamyelocytes % (Man) % Myelocytes % (Man) % Plasma Cell % (Manual) % Neutrophils # (Manual) (1.40-6.50) K/uL Total Absolute Neuts (1.4-6.5) K/uL Lymphocytes # (Manual) (1.2-3.4) K/uL Total Abs Lymphocytes (1.2-3.4) K/uL Monocytes # (Manual) (0.11-0.59) K/uL Eosinophils # (Manual) (0-0.50) K/uL Metamyelocytes # (Man) (0-0) K/uL Myelocytes # (Manual) (0-0) K/uL Plasma Cell # (Manual) (0-0) K/uL Hypersegmented Neuts Blood Smear Review Toxic Vacuolation Hypochromasia Polychromasia Spherocytes Echinocytes PT (9.0-12.0) Seconds INR (0.9-1.1) APTT (21.0-31.0) Seconds PTT Ratio Sodium (136-145) mmol/L Potassium (3.5-5.1) mmol/L Chloride (98-107) mmol/L Carbon Dioxide (21-32) mmol/L Anion Gap (3-11) BUN (6-23) mg/dl Creatinine (0.6-1.2) mg/dl Est Cr Clr Drug Dosing ml/min Est GFR ( Amer) ml/min Est GFR (Non-Af Amer) ml/min BUN/Creatinine Ratio (10-20) Glucose (70-99(Fasting)) mg/dl POC Glucose 235 H 272 H (70-99) mg/dl Lactate (0.4-2.0) mmol/L Calcium (8.6-10.3) mg/dl Phosphorus (2.5-4.9) mg/dl Magnesium (1.7-2.4) mg/dl Total Bilirubin (0.2-1.0) mg/dl AST (13-39) U/L ALT (7-52) U/L Alkaline Phosphatase (34-104) U/L Total Creatine Kinase (26-192) U/L C-Reactive Protein (0-0.5) mg/dl Total Protein (6.0-8.3) gm/dl Albumin (3.4-5.0) gm/dl Globulin (2.5-4.0) gm/dl Albumin/Globulin Ratio (0.9-2) Triglycerides (0-150) mg/dl Procalcitonin (0-0.5) ng/ml Urine Color Dark Yellow Urine Appearance Turbid A (Clear) Urine pH 5.0 (4.5-7.5) Ur Specific [place] 1.019 (1.000-1.030) Urine Protein 2+ H (Negative) Urine Glucose (UA) Negative (Negative) Urine Ketones Negative (Negative) Urine Blood 1+ H (Negative) Urine Nitrite Negative (Negative) Urine Bilirubin Negative (Negative) Urine Urobilinogen Negative (Negative) Ur Leukocyte Esterase Negative (Negative) Urine WBC (Auto) >30 H (0-5) /hpf Urine RBC (Auto) 5-10 H (0-4) /hpf U Hyaline Cast (Auto) 1-5 (0-5) /lpf U Epithel Cells (Auto) >30 H (0-5) /lpf Urine Bacteria (Auto) Negative (Negative) Ur Renal Epithelial Cell (0-5) /lpf Amorphous Sediment (None Prsent) Urine Yeast Not Reportable Urine Osmolality 306 L (500-800) mOsm/kg Ur Random Creatinine 57.8 mg/dl Ur Random Sodium 43 mmol/L Stool Occult Bld Scrn (Negative) A. phagocytophilum DNA (Negative) Hep Bs Antigen (NON-REACTIVE) Hep Bs Ag Confirmation Hep Bs Antibody, Quant (> OR = 10) mIU/mL Hep B Core IgM Ab (NON-REACTIVE) Blood Type Antibody Screen Crossmatch 02/20/23 02/20/23 02/20/23 Range/Units 06:17 06:19 08:35 WBC 12.97 H (4.8-10.8) K/ul RBC 3.22 L (4.20-5.40) M/uL Hgb 8.5 L (12.0-16.0) g/dl Hct 26.8 L (37.0-47.0) % MCV 83.2 (80.0-100.0) fL MCH 26.4 (25.0-34.0) pg MCHC 31.7 L (32.0-36.0) g/dL RDW Std Deviation 54.6 H (36.4-46.3) fL RDW Coeff of Mari 18.0 H (11.5-14.5) % Plt Count 195 (130-400) K/uL MPV 12.1 (9.4-12.4) fL Immature Gran % (Auto) 3.0 % Neut % (Auto) 89.1 % Lymph % (Auto) 5.7 % Ste[place]s % (Auto) 1.9 % Eos % (Auto) 0.2 % Baso % (Auto) 0.1 % Neut # (Auto) 11.57 H (1.40-6.50) K/uL Lymph # (Auto) 0.74 L (1.20-3.40) K/uL [place]s # (Auto) 0.24 (0.11-0.59) K/uL Eos # (Auto) 0.02 (0.00-0.50) K/uL Baso # (Auto) 0.01 (0.00-0.20) K/uL Immature Gran # (Auto) 0.39 H (0.01-0.20) K/uL Absolute Nucleated RBC (0.00-0.12) K/uL Nucleated RBC % (auto) % Neutrophils % (Manual) % Lymphocytes % (Manual) % Monocytes % (Manual) % Eosinophils % (Manual) % Metamyelocytes % (Man) % Myelocytes % (Man) % Plasma Cell % (Manual) % Neutrophils # (Manual) (1.40-6.50) K/uL Total Absolute Neuts (1.4-6.5) K/uL Lymphocytes # (Manual) (1.2-3.4) K/uL Total Abs Lymphocytes (1.2-3.4) K/uL Monocytes # (Manual) (0.11-0.59) K/uL Eosinophils # (Manual) (0-0.50) K/uL Metamyelocytes # (Man) (0-0) K/uL Myelocytes # (Manual) (0-0) K/uL Plasma Cell # (Manual) (0-0) K/uL Hypersegmented Neuts Blood Smear Review Toxic Vacuolation Hypochromasia Polychromasia Spherocytes Echinocytes PT (9.0-12.0) Seconds INR (0.9-1.1) APTT (21.0-31.0) Seconds PTT Ratio Sodium 131 L (136-145) mmol/L Potassium 4.2 (3.5-5.1) mmol/L Chloride 101 (98-107) mmol/L Carbon Dioxide 20 L (21-32) mmol/L Anion Gap 10 (3-11) BUN 62 H (6-23) mg/dl Creatinine 3.04 H D (0.6-1.2) mg/dl Est Cr Clr Drug Dosing 12.9 ml/min Est GFR ( Amer) 15.2 ml/min Est GFR (Non-Af Amer) 13.1 ml/min BUN/Creatinine Ratio 20.4 H (10-20) Glucose 211 H (70-99(Fasting)) mg/dl POC Glucose 229 H 206 H (70-99) mg/dl Lactate (0.4-2.0) mmol/L Calcium 8.9 (8.6-10.3) mg/dl Phosphorus 2.7 (2.5-4.9) mg/dl Magnesium 1.9 (1.7-2.4) mg/dl Total Bilirubin (0.2-1.0) mg/dl AST (13-39) U/L ALT (7-52) U/L Alkaline Phosphatase (34-104) U/L Total Creatine Kinase (26-192) U/L C-Reactive Protein (0-0.5) mg/dl Total Protein (6.0-8.3) gm/dl Albumin (3.4-5.0) gm/dl Globulin (2.5-4.0) gm/dl Albumin/Globulin Ratio (0.9-2) Triglycerides 458 H (0-150) mg/dl Procalcitonin (0-0.5) ng/ml Urine Color Urine Appearance (Clear) Urine pH (4.5-7.5) Ur Specific [place] (1.000-1.030) Urine Protein (Negative) Urine Glucose (UA) (Negative) Urine Ketones (Negative) Urine Blood (Negative) Urine Nitrite (Negative) Urine Bilirubin (Negative) Urine Urobilinogen (Negative) Ur Leukocyte Esterase (Negative) Urine WBC (Auto) (0-5) /hpf Urine RBC (Auto) (0-4) /hpf U Hyaline Cast (Auto) (0-5) /lpf U Epithel Cells (Auto) (0-5) /lpf Urine Bacteria (Auto) (Negative) Ur Renal Epithelial Cell (0-5) /lpf Amorphous Sediment (None Prsent) Urine Yeast Urine Osmolality (500-800) mOsm/kg Ur Random Creatinine mg/dl Ur Random Sodium mmol/L Stool Occult Bld Scrn (Negative) A. phagocytophilum DNA (Negative) Hep Bs Antigen (NON-REACTIVE) Hep Bs Ag Confirmation Hep Bs Antibody, Quant (> OR = 10) mIU/mL Hep B Core IgM Ab (NON-REACTIVE) Blood Type Antibody Screen Crossmatch 02/20/23 02/20/23 02/20/23 Range/Units 11:48 12:18 16:36 WBC (4.8-10.8) K/ul RBC (4.20-5.40) M/uL Hgb (12.0-16.0) g/dl Hct (37.0-47.0) % MCV (80.0-100.0) fL MCH (25.0-34.0) pg MCHC (32.0-36.0) g/dL RDW Std Deviation (36.4-46.3) fL RDW Coeff of Mari (11.5-14.5) % Plt Count (130-400) K/uL MPV (9.4-12.4) fL Immature Gran % (Auto) % Neut % (Auto) % Lymph % (Auto) % Stearns % (Auto) % Eos % (Auto) % Baso % (Auto) % Neut # (Auto) (1.40-6.50) K/uL Lymph # (Auto) (1.20-3.40) K/uL Stearns # (Auto) (0.11-0.59) K/uL Eos # (Auto) (0.00-0.50) K/uL Baso # (Auto) (0.00-0.20) K/uL Immature Gran # (Auto) (0.01-0.20) K/uL Absolute Nucleated RBC (0.00-0.12) K/uL Nucleated RBC % (auto) % Neutrophils % (Manual) % Lymphocytes % (Manual) % Monocytes % (Manual) % Eosinophils % (Manual) % Metamyelocytes % (Man) % Myelocytes % (Man) % Plasma Cell % (Manual) % Neutrophils # (Manual) (1.40-6.50) K/uL Total Absolute Neuts (1.4-6.5) K/uL Lymphocytes # (Manual) (1.2-3.4) K/uL Total Abs Lymphocytes (1.2-3.4) K/uL Monocytes # (Manual) (0.11-0.59) K/uL Eosinophils # (Manual) (0-0.50) K/uL Metamyelocytes # (Man) (0-0) K/uL Myelocytes # (Manual) (0-0) K/uL Plasma Cell # (Manual) (0-0) K/uL Hypersegmented Neuts Blood Smear Review Toxic Vacuolation Hypochromasia Polychromasia Spherocytes Echinocytes PT (9.0-12.0) Seconds INR (0.9-1.1) APTT (21.0-31.0) Seconds PTT Ratio Sodium (136-145) mmol/L Potassium (3.5-5.1) mmol/L Chloride (98-107) mmol/L Carbon Dioxide (21-32) mmol/L Anion Gap (3-11) BUN (6-23) mg/dl Creatinine (0.6-1.2) mg/dl Est Cr Clr Drug Dosing ml/min Est GFR ( Amer) ml/min Est GFR (Non-Af Amer) ml/min BUN/Creatinine Ratio (10-20) Glucose (70-99(Fasting)) mg/dl POC Glucose 175 H 174 H 155 H (70-99) mg/dl Lactate (0.4-2.0) mmol/L Calcium (8.6-10.3) mg/dl Phosphorus (2.5-4.9) mg/dl Magnesium (1.7-2.4) mg/dl Total Bilirubin (0.2-1.0) mg/dl AST (13-39) U/L ALT (7-52) U/L Alkaline Phosphatase (34-104) U/L Total Creatine Kinase (26-192) U/L C-Reactive Protein (0-0.5) mg/dl Total Protein (6.0-8.3) gm/dl Albumin (3.4-5.0) gm/dl Globulin (2.5-4.0) gm/dl Albumin/Globulin Ratio (0.9-2) Triglycerides (0-150) mg/dl Procalcitonin (0-0.5) ng/ml Urine Color Urine Appearance (Clear) Urine pH (4.5-7.5) Ur Specific [place] (1.000-1.030) Urine Protein (Negative) Urine Glucose (UA) (Negative) Urine Ketones (Negative) Urine Blood (Negative) Urine Nitrite (Negative) Urine Bilirubin (Negative) Urine Urobilinogen (Negative) Ur Leukocyte Esterase (Negative) Urine WBC (Auto) (0-5) /hpf Urine RBC (Auto) (0-4) /hpf U Hyaline Cast (Auto) (0-5) /lpf U Epithel Cells (Auto) (0-5) /lpf Urine Bacteria (Auto) (Negative) Ur Renal Epithelial Cell (0-5) /lpf Amorphous Sediment (None Prsent) Urine Yeast Urine Osmolality (500-800) mOsm/kg Ur Random Creatinine mg/dl Ur Random Sodium mmol/L Stool Occult Bld Scrn (Negative) A. phagocytophilum DNA (Negative) Hep Bs Antigen (NON-REACTIVE) Hep Bs Ag Confirmation Hep Bs Antibody, Quant (> OR = 10) mIU/mL Hep B Core IgM Ab (NON-REACTIVE) Blood Type Antibody Screen Crossmatch 02/20/23 02/21/23 02/21/23 Range/Units 20:02 00:11 04:24 WBC (4.8-10.8) K/ul RBC (4.20-5.40) M/uL Hgb (12.0-16.0) g/dl Hct (37.0-47.0) % MCV (80.0-100.0) fL MCH (25.0-34.0) pg MCHC (32.0-36.0) g/dL RDW Std Deviation (36.4-46.3) fL RDW Coeff of Mari (11.5-14.5) % Plt Count (130-400) K/uL MPV (9.4-12.4) fL Immature Gran % (Auto) % Neut % (Auto) % Lymph % (Auto) % [place]s % (Auto) % Eos % (Auto) % Baso % (Auto) % Neut # (Auto) (1.40-6.50) K/uL Lymph # (Auto) (1.20-3.40) K/uL [place]s # (Auto) (0.11-0.59) K/uL Eos # (Auto) (0.00-0.50) K/uL Baso # (Auto) (0.00-0.20) K/uL Immature Gran # (Auto) (0.01-0.20) K/uL Absolute Nucleated RBC (0.00-0.12) K/uL Nucleated RBC % (auto) % Neutrophils % (Manual) % Lymphocytes % (Manual) % Monocytes % (Manual) % Eosinophils % (Manual) % Metamyelocytes % (Man) % Myelocytes % (Man) % Plasma Cell % (Manual) % Neutrophils # (Manual) (1.40-6.50) K/uL Total Absolute Neuts (1.4-6.5) K/uL Lymphocytes # (Manual) (1.2-3.4) K/uL Total Abs Lymphocytes (1.2-3.4) K/uL Monocytes # (Manual) (0.11-0.59) K/uL Eosinophils # (Manual) (0-0.50) K/uL Metamyelocytes # (Man) (0-0) K/uL Myelocytes # (Manual) (0-0) K/uL Plasma Cell # (Manual) (0-0) K/uL Hypersegmented Neuts Blood Smear Review Toxic Vacuolation Hypochromasia Polychromasia Spherocytes Echinocytes PT (9.0-12.0) Seconds INR (0.9-1.1) APTT (21.0-31.0) Seconds PTT Ratio Sodium (136-145) mmol/L Potassium (3.5-5.1) mmol/L Chloride (98-107) mmol/L Carbon Dioxide (21-32) mmol/L Anion Gap (3-11) BUN (6-23) mg/dl Creatinine (0.6-1.2) mg/dl Est Cr Clr Drug Dosing ml/min Est GFR ( Amer) ml/min Est GFR (Non-Af Amer) ml/min BUN/Creatinine Ratio (10-20) Glucose (70-99(Fasting)) mg/dl POC Glucose 137 H 142 H 148 H (70-99) mg/dl Lactate (0.4-2.0) mmol/L Calcium (8.6-10.3) mg/dl Phosphorus (2.5-4.9) mg/dl Magnesium (1.7-2.4) mg/dl Total Bilirubin (0.2-1.0) mg/dl AST (13-39) U/L ALT (7-52) U/L Alkaline Phosphatase (34-104) U/L Total Creatine Kinase (26-192) U/L C-Reactive Protein (0-0.5) mg/dl Total Protein (6.0-8.3) gm/dl Albumin (3.4-5.0) gm/dl Globulin (2.5-4.0) gm/dl Albumin/Globulin Ratio (0.9-2) Triglycerides (0-150) mg/dl Procalcitonin (0-0.5) ng/ml Urine Color Urine Appearance (Clear) Urine pH (4.5-7.5) Ur Specific [place] (1.000-1.030) Urine Protein (Negative) Urine Glucose (UA) (Negative) Urine Ketones (Negative) Urine Blood (Negative) Urine Nitrite (Negative) Urine Bilirubin (Negative) Urine Urobilinogen (Negative) Ur Leukocyte Esterase (Negative) Urine WBC (Auto) (0-5) /hpf Urine RBC (Auto) (0-4) /hpf U Hyaline Cast (Auto) (0-5) /lpf U Epithel Cells (Auto) (0-5) /lpf Urine Bacteria (Auto) (Negative) Ur Renal Epithelial Cell (0-5) /lpf Amorphous Sediment (None Prsent) Urine Yeast Urine Osmolality (500-800) mOsm/kg Ur Random Creatinine mg/dl Ur Random Sodium mmol/L Stool Occult Bld Scrn (Negative) A. phagocytophilum DNA (Negative) Hep Bs Antigen (NON-REACTIVE) Hep Bs Ag Confirmation Hep Bs Antibody, Quant (> OR = 10) mIU/mL Hep B Core IgM Ab (NON-REACTIVE) Blood Type Antibody Screen Crossmatch 02/21/23 02/21/23 02/21/23 Range/Units 07:15 08:09 12:00 WBC 18.33 H (4.8-10.8) K/ul RBC 2.93 L (4.20-5.40) M/uL Hgb 7.6 L (12.0-16.0) g/dl Hct 23.8 L (37.0-47.0) % MCV 81.2 (80.0-100.0) fL MCH 25.9 (25.0-34.0) pg MCHC 31.9 L (32.0-36.0) g/dL RDW Std Deviation 55.1 H (36.4-46.3) fL RDW Coeff of Mari 18.3 H (11.5-14.5) % Plt Count 261 (130-400) K/uL MPV 11.6 (9.4-12.4) fL Immature Gran % (Auto) % Neut % (Auto) % Lymph % (Auto) % Ste[place]s % (Auto) % Eos % (Auto) % Baso % (Auto) % Neut # (Auto) (1.40-6.50) K/uL Lymph # (Auto) (1.20-3.40) K/uL [place]s # (Auto) (0.11-0.59) K/uL Eos # (Auto) (0.00-0.50) K/uL Baso # (Auto) (0.00-0.20) K/uL Immature Gran # (Auto) (0.01-0.20) K/uL Absolute Nucleated RBC (0.00-0.12) K/uL Nucleated RBC % (auto) % Neutrophils % (Manual) % Lymphocytes % (Manual) % Monocytes % (Manual) % Eosinophils % (Manual) % Metamyelocytes % (Man) % Myelocytes % (Man) % Plasma Cell % (Manual) % Neutrophils # (Manual) (1.40-6.50) K/uL Total Absolute Neuts (1.4-6.5) K/uL Lymphocytes # (Manual) (1.2-3.4) K/uL Total Abs Lymphocytes (1.2-3.4) K/uL Monocytes # (Manual) (0.11-0.59) K/uL Eosinophils # (Manual) (0-0.50) K/uL Metamyelocytes # (Man) (0-0) K/uL Myelocytes # (Manual) (0-0) K/uL Plasma Cell # (Manual) (0-0) K/uL Hypersegmented Neuts Blood Smear Review Toxic Vacuolation Hypochromasia Polychromasia Spherocytes Echinocytes PT (9.0-12.0) Seconds INR (0.9-1.1) APTT (21.0-31.0) Seconds PTT Ratio Sodium 131 L (136-145) mmol/L Potassium 4.2 (3.5-5.1) mmol/L Chloride 99 (98-107) mmol/L Carbon Dioxide 21 (21-32) mmol/L Anion Gap 11 (3-11) BUN 80 H (6-23) mg/dl Creatinine 4.10 H D (0.6-1.2) mg/dl Est Cr Clr Drug Dosing 9.6 ml/min Est GFR ( Amer) 10.6 ml/min Est GFR (Non-Af Amer) 9.1 ml/min BUN/Creatinine Ratio 19.5 (10-20) Glucose 134 H (70-99(Fasting)) mg/dl POC Glucose 147 H 185 H (70-99) mg/dl Lactate (0.4-2.0) mmol/L Calcium 9.0 (8.6-10.3) mg/dl Phosphorus 3.2 (2.5-4.9) mg/dl Magnesium 1.9 (1.7-2.4) mg/dl Total Bilirubin (0.2-1.0) mg/dl AST (13-39) U/L ALT (7-52) U/L Alkaline Phosphatase (34-104) U/L Total Creatine Kinase (26-192) U/L C-Reactive Protein (0-0.5) mg/dl Total Protein (6.0-8.3) gm/dl Albumin (3.4-5.0) gm/dl Globulin (2.5-4.0) gm/dl Albumin/Globulin Ratio (0.9-2) Triglycerides (0-150) mg/dl Procalcitonin (0-0.5) ng/ml Urine Color Urine Appearance (Clear) Urine pH (4.5-7.5) Ur Specific [place] (1.000-1.030) Urine Protein (Negative) Urine Glucose (UA) (Negative) Urine Ketones (Negative) Urine Blood (Negative) Urine Nitrite (Negative) Urine Bilirubin (Negative) Urine Urobilinogen (Negative) Ur Leukocyte Esterase (Negative) Urine WBC (Auto) (0-5) /hpf Urine RBC (Auto) (0-4) /hpf U Hyaline Cast (Auto) (0-5) /lpf U Epithel Cells (Auto) (0-5) /lpf Urine Bacteria (Auto) (Negative) Ur Renal Epithelial Cell (0-5) /lpf Amorphous Sediment (None Prsent) Urine Yeast Urine Osmolality (500-800) mOsm/kg Ur Random Creatinine mg/dl Ur Random Sodium mmol/L Stool Occult Bld Scrn (Negative) A. phagocytophilum DNA (Negative) Hep Bs Antigen (NON-REACTIVE) Hep Bs Ag Confirmation Hep Bs Antibody, Quant (> OR = 10) mIU/mL Hep B Core IgM Ab (NON-REACTIVE) Blood Type Antibody Screen Crossmatch 02/21/23 02/21/23 02/21/23 Range/Units 14:17 15:26 16:12 WBC 15.96 H (4.8-10.8) K/ul RBC 2.84 L (4.20-5.40) M/uL Hgb 7.4 L (12.0-16.0) g/dl Hct 23.4 L (37.0-47.0) % MCV 82.4 (80.0-100.0) fL MCH 26.1 (25.0-34.0) pg MCHC 31.6 L (32.0-36.0) g/dL RDW Std Deviation 55.5 H (36.4-46.3) fL RDW Coeff of Mari 18.1 H (11.5-14.5) % Plt Count 272 (130-400) K/uL MPV 11.0 (9.4-12.4) fL Immature Gran % (Auto) % Neut % (Auto) % Lymph % (Auto) % Ste[place]s % (Auto) % Eos % (Auto) % Baso % (Auto) % Neut # (Auto) (1.40-6.50) K/uL Lymph # (Auto) (1.20-3.40) K/uL [place] # (Auto) (0.11-0.59) K/uL Eos # (Auto) (0.00-0.50) K/uL Baso # (Auto) (0.00-0.20) K/uL Immature Gran # (Auto) (0.01-0.20) K/uL Absolute Nucleated RBC (0.00-0.12) K/uL Nucleated RBC % (auto) % Neutrophils % (Manual) % Lymphocytes % (Manual) % Monocytes % (Manual) % Eosinophils % (Manual) % Metamyelocytes % (Man) % Myelocytes % (Man) % Plasma Cell % (Manual) % Neutrophils # (Manual) (1.40-6.50) K/uL Total Absolute Neuts (1.4-6.5) K/uL Lymphocytes # (Manual) (1.2-3.4) K/uL Total Abs Lymphocytes (1.2-3.4) K/uL Monocytes # (Manual) (0.11-0.59) K/uL Eosinophils # (Manual) (0-0.50) K/uL Metamyelocytes # (Man) (0-0) K/uL Myelocytes # (Manual) (0-0) K/uL Plasma Cell # (Manual) (0-0) K/uL Hypersegmented Neuts Blood Smear Review Toxic Vacuolation Hypochromasia Polychromasia Spherocytes Echinocytes PT (9.0-12.0) Seconds INR (0.9-1.1) APTT (21.0-31.0) Seconds PTT Ratio Sodium (136-145) mmol/L Potassium (3.5-5.1) mmol/L Chloride (98-107) mmol/L Carbon Dioxide (21-32) mmol/L Anion Gap (3-11) BUN (6-23) mg/dl Creatinine (0.6-1.2) mg/dl Est Cr Clr Drug Dosing ml/min Est GFR ( Amer) ml/min Est GFR (Non-Af Amer) ml/min BUN/Creatinine Ratio (10-20) Glucose (70-99(Fasting)) mg/dl POC Glucose 156 H (70-99) mg/dl Lactate (0.4-2.0) mmol/L Calcium (8.6-10.3) mg/dl Phosphorus (2.5-4.9) mg/dl Magnesium (1.7-2.4) mg/dl Total Bilirubin (0.2-1.0) mg/dl AST (13-39) U/L ALT (7-52) U/L Alkaline Phosphatase (34-104) U/L Total Creatine Kinase (26-192) U/L C-Reactive Protein (0-0.5) mg/dl Total Protein (6.0-8.3) gm/dl Albumin (3.4-5.0) gm/dl Globulin (2.5-4.0) gm/dl Albumin/Globulin Ratio (0.9-2) Triglycerides (0-150) mg/dl Procalcitonin (0-0.5) ng/ml Urine Color Urine Appearance (Clear) Urine pH (4.5-7.5) Ur Specific [place] (1.000-1.030) Urine Protein (Negative) Urine Glucose (UA) (Negative) Urine Ketones (Negative) Urine Blood (Negative) Urine Nitrite (Negative) Urine Bilirubin (Negative) Urine Urobilinogen (Negative) Ur Leukocyte Esterase (Negative) Urine WBC (Auto) (0-5) /hpf Urine RBC (Auto) (0-4) /hpf U Hyaline Cast (Auto) (0-5) /lpf U Epithel Cells (Auto) (0-5) /lpf Urine Bacteria (Auto) (Negative) Ur Renal Epithelial Cell (0-5) /lpf Amorphous Sediment (None Prsent) Urine Yeast Urine Osmolality (500-800) mOsm/kg Ur Random Creatinine mg/dl Ur Random Sodium mmol/L Stool Occult Bld Scrn (Negative) A. phagocytophilum DNA (Negative) Hep Bs Antigen (NON-REACTIVE) Hep Bs Ag Confirmation Hep Bs Antibody, Quant (> OR = 10) mIU/mL Hep B Core IgM Ab (NON-REACTIVE) Blood Type O Positive Antibody Screen NEGATIVE Crossmatch See Detail 02/21/23 02/21/23 02/22/23 Range/Units 20:56 Unknown 00:01 WBC (4.8-10.8) K/ul RBC (4.20-5.40) M/uL Hgb (12.0-16.0) g/dl Hct (37.0-47.0) % MCV (80.0-100.0) fL MCH (25.0-34.0) pg MCHC (32.0-36.0) g/dL RDW Std Deviation (36.4-46.3) fL RDW Coeff of Mari (11.5-14.5) % Plt Count (130-400) K/uL MPV (9.4-12.4) fL Immature Gran % (Auto) % Neut % (Auto) % Lymph % (Auto) % [place] % (Auto) % Eos % (Auto) % Baso % (Auto) % Neut # (Auto) (1.40-6.50) K/uL Lymph # (Auto) (1.20-3.40) K/uL [place]s # (Auto) (0.11-0.59) K/uL Eos # (Auto) (0.00-0.50) K/uL Baso # (Auto) (0.00-0.20) K/uL Immature Gran # (Auto) (0.01-0.20) K/uL Absolute Nucleated RBC (0.00-0.12) K/uL Nucleated RBC % (auto) % Neutrophils % (Manual) % Lymphocytes % (Manual) % Monocytes % (Manual) % Eosinophils % (Manual) % Metamyelocytes % (Man) % Myelocytes % (Man) % Plasma Cell % (Manual) % Neutrophils # (Manual) (1.40-6.50) K/uL Total Absolute Neuts (1.4-6.5) K/uL Lymphocytes # (Manual) (1.2-3.4) K/uL Total Abs Lymphocytes (1.2-3.4) K/uL Monocytes # (Manual) (0.11-0.59) K/uL Eosinophils # (Manual) (0-0.50) K/uL Metamyelocytes # (Man) (0-0) K/uL Myelocytes # (Manual) (0-0) K/uL Plasma Cell # (Manual) (0-0) K/uL Hypersegmented Neuts Blood Smear Review Toxic Vacuolation Hypochromasia Polychromasia Spherocytes Echinocytes PT (9.0-12.0) Seconds INR (0.9-1.1) APTT (21.0-31.0) Seconds PTT Ratio Sodium (136-145) mmol/L Potassium (3.5-5.1) mmol/L Chloride (98-107) mmol/L Carbon Dioxide (21-32) mmol/L Anion Gap (3-11) BUN (6-23) mg/dl Creatinine (0.6-1.2) mg/dl Est Cr Clr Drug Dosing ml/min Est GFR ( Amer) ml/min Est GFR (Non-Af Amer) ml/min BUN/Creatinine Ratio (10-20) Glucose (70-99(Fasting)) mg/dl POC Glucose 120 H 125 H (70-99) mg/dl Lactate (0.4-2.0) mmol/L Calcium (8.6-10.3) mg/dl Phosphorus (2.5-4.9) mg/dl Magnesium (1.7-2.4) mg/dl Total Bilirubin (0.2-1.0) mg/dl AST (13-39) U/L ALT (7-52) U/L Alkaline Phosphatase (34-104) U/L Total Creatine Kinase (26-192) U/L C-Reactive Protein (0-0.5) mg/dl Total Protein (6.0-8.3) gm/dl Albumin (3.4-5.0) gm/dl Globulin (2.5-4.0) gm/dl Albumin/Globulin Ratio (0.9-2) Triglycerides (0-150) mg/dl Procalcitonin (0-0.5) ng/ml Urine Color Yellow Urine Appearance Cloudy A (Clear) Urine pH 5.5 (4.5-7.5) Ur Specific [place] 1.013 (1.000-1.030) Urine Protein 1+ H (Negative) Urine Glucose (UA) Negative (Negative) Urine Ketones Negative (Negative) Urine Blood Trace H (Negative) Urine Nitrite Negative (Negative) Urine Bilirubin Negative (Negative) Urine Urobilinogen Negative (Negative) Ur Leukocyte Esterase Trace H (Negative) Urine WBC (Auto) 10-30 H (0-5) /hpf Urine RBC (Auto) 0-4 (0-4) /hpf U Hyaline Cast (Auto) 5-10 H (0-5) /lpf U Epithel Cells (Auto) >30 H (0-5) /lpf Urine Bacteria (Auto) 1+ H (Negative) Ur Renal Epithelial Cell 5-10 H (0-5) /lpf Amorphous Sediment Present A (None Prsent) Urine Yeast Budding A Urine Osmolality (500-800) mOsm/kg Ur Random Creatinine mg/dl Ur Random Sodium mmol/L Stool Occult Bld Scrn (Negative) A. phagocytophilum DNA (Negative) Hep Bs Antigen (NON-REACTIVE) Hep Bs Ag Confirmation Hep Bs Antibody, Quant (> OR = 10) mIU/mL Hep B Core IgM Ab (NON-REACTIVE) Blood Type Antibody Screen Crossmatch 02/22/23 02/22/23 02/22/23 Range/Units 04:45 05:42 05:42 WBC 18.71 H (4.8-10.8) K/ul RBC 2.99 L (4.20-5.40) M/uL Hgb 7.8 L 7.7 L (12.0-16.0) g/dl Hct 24.3 L (37.0-47.0) % MCV (80.0-100.0) fL MCH (25.0-34.0) pg MCHC (32.0-36.0) g/dL RDW Std Deviation (36.4-46.3) fL RDW Coeff of Mari (11.5-14.5) % Plt Count (130-400) K/uL MPV (9.4-12.4) fL Immature Gran % (Auto) % Neut % (Auto) % Lymph % (Auto) % [place] % (Auto) % Eos % (Auto) % Baso % (Auto) % Neut # (Auto) (1.40-6.50) K/uL Lymph # (Auto) (1.20-3.40) K/uL [place]s # (Auto) (0.11-0.59) K/uL Eos # (Auto) (0.00-0.50) K/uL Baso # (Auto) (0.00-0.20) K/uL Immature Gran # (Auto) (0.01-0.20) K/uL Absolute Nucleated RBC (0.00-0.12) K/uL Nucleated RBC % (auto) % Neutrophils % (Manual) % Lymphocytes % (Manual) % Monocytes % (Manual) % Eosinophils % (Manual) % Metamyelocytes % (Man) % Myelocytes % (Man) % Plasma Cell % (Manual) % Neutrophils # (Manual) (1.40-6.50) K/uL Total Absolute Neuts (1.4-6.5) K/uL Lymphocytes # (Manual) (1.2-3.4) K/uL Total Abs Lymphocytes (1.2-3.4) K/uL Monocytes # (Manual) (0.11-0.59) K/uL Eosinophils # (Manual) (0-0.50) K/uL Metamyelocytes # (Man) (0-0) K/uL Myelocytes # (Manual) (0-0) K/uL Plasma Cell # (Manual) (0-0) K/uL Hypersegmented Neuts Blood Smear Review Toxic Vacuolation Hypochromasia Polychromasia Spherocytes Echinocytes PT (9.0-12.0) Seconds INR (0.9-1.1) APTT (21.0-31.0) Seconds PTT Ratio Sodium (136-145) mmol/L Potassium (3.5-5.1) mmol/L Chloride (98-107) mmol/L Carbon Dioxide (21-32) mmol/L Anion Gap (3-11) BUN (6-23) mg/dl Creatinine (0.6-1.2) mg/dl Est Cr Clr Drug Dosing ml/min Est GFR ( Amer) ml/min Est GFR (Non-Af Amer) ml/min BUN/Creatinine Ratio (10-20) Glucose (70-99(Fasting)) mg/dl POC Glucose 135 H (70-99) mg/dl Lactate (0.4-2.0) mmol/L Calcium (8.6-10.3) mg/dl Phosphorus (2.5-4.9) mg/dl Magnesium (1.7-2.4) mg/dl Total Bilirubin (0.2-1.0) mg/dl AST (13-39) U/L ALT (7-52) U/L Alkaline Phosphatase (34-104) U/L Total Creatine Kinase (26-192) U/L C-Reactive Protein (0-0.5) mg/dl Total Protein (6.0-8.3) gm/dl Albumin (3.4-5.0) gm/dl Globulin (2.5-4.0) gm/dl Albumin/Globulin Ratio (0.9-2) Triglycerides (0-150) mg/dl Procalcitonin (0-0.5) ng/ml Urine Color Urine Appearance (Clear) Urine pH (4.5-7.5) Ur Specific [place] (1.000-1.030) Urine Protein (Negative) Urine Glucose (UA) (Negative) Urine Ketones (Negative) Urine Blood (Negative) Urine Nitrite (Negative) Urine Bilirubin (Negative) Urine Urobilinogen (Negative) Ur Leukocyte Esterase (Negative) Urine WBC (Auto) (0-5) /hpf Urine RBC (Auto) (0-4) /hpf U Hyaline Cast (Auto) (0-5) /lpf U Epithel Cells (Auto) (0-5) /lpf Urine Bacteria (Auto) (Negative) Ur Renal Epithelial Cell (0-5) /lpf Amorphous Sediment (None Prsent) Urine Yeast Urine Osmolality (500-800) mOsm/kg Ur Random Creatinine mg/dl Ur Random Sodium mmol/L Stool Occult Bld Scrn (Negative) A. phagocytophilum DNA (Negative) Hep Bs Antigen (NON-REACTIVE) Hep Bs Ag Confirmation Hep Bs Antibody, Quant (> OR = 10) mIU/mL Hep B Core IgM Ab (NON-REACTIVE) Blood Type Antibody Screen Crossmatch 02/22/23 02/22/23 02/22/23 Range/Units 05:42 08:26 11:41 WBC (4.8-10.8) K/ul RBC (4.20-5.40) M/uL Hgb (12.0-16.0) g/dl Hct 24.9 L (37.0-47.0) % MCV 81.3 (80.0-100.0) fL MCH 26.1 (25.0-34.0) pg MCHC 32.1 (32.0-36.0) g/dL RDW Std Deviation 54.4 H (36.4-46.3) fL RDW Coeff of Mari 18.5 H (11.5-14.5) % Plt Count 352 (130-400) K/uL MPV 11.0 (9.4-12.4) fL Immature Gran % (Auto) % Neut % (Auto) % Lymph % (Auto) % [place] % (Auto) % Eos % (Auto) % Baso % (Auto) % Neut # (Auto) (1.40-6.50) K/uL Lymph # (Auto) (1.20-3.40) K/uL [place]s # (Auto) (0.11-0.59) K/uL Eos # (Auto) (0.00-0.50) K/uL Baso # (Auto) (0.00-0.20) K/uL Immature Gran # (Auto) (0.01-0.20) K/uL Absolute Nucleated RBC 0.02 (0.00-0.12) K/uL Nucleated RBC % (auto) 0.1 % Neutrophils % (Manual) 87 % Lymphocytes % (Manual) 10 % Monocytes % (Manual) 1 % Eosinophils % (Manual) 1 % Metamyelocytes % (Man) % Myelocytes % (Man) 1 % Plasma Cell % (Manual) % Neutrophils # (Manual) 16.28 H (1.40-6.50) K/uL Total Absolute Neuts 16.28 H (1.4-6.5) K/uL Lymphocytes # (Manual) 1.87 (1.2-3.4) K/uL Total Abs Lymphocytes 1.87 (1.2-3.4) K/uL Monocytes # (Manual) 0.19 (0.11-0.59) K/uL Eosinophils # (Manual) 0.19 (0-0.50) K/uL Metamyelocytes # (Man) (0-0) K/uL Myelocytes # (Manual) 0.19 H (0-0) K/uL Plasma Cell # (Manual) (0-0) K/uL Hypersegmented Neuts Blood Smear Review Toxic Vacuolation Hypochromasia Polychromasia Spherocytes Echinocytes PT (9.0-12.0) Seconds INR (0.9-1.1) APTT (21.0-31.0) Seconds PTT Ratio Sodium 132 L (136-145) mmol/L Potassium 4.7 (3.5-5.1) mmol/L Chloride 100 (98-107) mmol/L Carbon Dioxide 19 L (21-32) mmol/L Anion Gap 13 H (3-11) BUN 86 H (6-23) mg/dl Creatinine 4.95 H* D (0.6-1.2) mg/dl Est Cr Clr Drug Dosing 7.9 ml/min Est GFR ( Amer) 8.4 ml/min Est GFR (Non-Af Amer) 7.3 ml/min BUN/Creatinine Ratio 17.4 (10-20) Glucose 114 H (70-99(Fasting)) mg/dl POC Glucose 140 H 154 H (70-99) mg/dl Lactate (0.4-2.0) mmol/L Calcium 9.5 (8.6-10.3) mg/dl Phosphorus 4.0 (2.5-4.9) mg/dl Magnesium 2.0 (1.7-2.4) mg/dl Total Bilirubin (0.2-1.0) mg/dl AST (13-39) U/L ALT (7-52) U/L Alkaline Phosphatase (34-104) U/L Total Creatine Kinase (26-192) U/L C-Reactive Protein (0-0.5) mg/dl Total Protein (6.0-8.3) gm/dl Albumin (3.4-5.0) gm/dl Globulin (2.5-4.0) gm/dl Albumin/Globulin Ratio (0.9-2) Triglycerides 273 H (0-150) mg/dl Procalcitonin (0-0.5) ng/ml Urine Color Urine Appearance (Clear) Urine pH (4.5-7.5) Ur Specific [place] (1.000-1.030) Urine Protein (Negative) Urine Glucose (UA) (Negative) Urine Ketones (Negative) Urine Blood (Negative) Urine Nitrite (Negative) Urine Bilirubin (Negative) Urine Urobilinogen (Negative) Ur Leukocyte Esterase (Negative) Urine WBC (Auto) (0-5) /hpf Urine RBC (Auto) (0-4) /hpf U Hyaline Cast (Auto) (0-5) /lpf U Epithel Cells (Auto) (0-5) /lpf Urine Bacteria (Auto) (Negative) Ur Renal Epithelial Cell (0-5) /lpf Amorphous Sediment (None Prsent) Urine Yeast Urine Osmolality (500-800) mOsm/kg Ur Random Creatinine mg/dl Ur Random Sodium mmol/L Stool Occult Bld Scrn (Negative) A. phagocytophilum DNA (Negative) Hep Bs Antigen (NON-REACTIVE) Hep Bs Ag Confirmation Hep Bs Antibody, Quant (> OR = 10) mIU/mL Hep B Core IgM Ab (NON-REACTIVE) Blood Type Antibody Screen Crossmatch 02/22/23 02/22/23 02/22/23 Range/Units 13:21 14:05 16:15 WBC (4.8-10.8) K/ul RBC (4.20-5.40) M/uL Hgb 7.1 L (12.0-16.0) g/dl Hct 22.4 L (37.0-47.0) % MCV (80.0-100.0) fL MCH (25.0-34.0) pg MCHC (32.0-36.0) g/dL RDW Std Deviation (36.4-46.3) fL RDW Coeff of Mari (11.5-14.5) % Plt Count (130-400) K/uL MPV (9.4-12.4) fL Immature Gran % (Auto) % Neut % (Auto) % Lymph % (Auto) % [place] % (Auto) % Eos % (Auto) % Baso % (Auto) % Neut # (Auto) (1.40-6.50) K/uL Lymph # (Auto) (1.20-3.40) K/uL [place] # (Auto) (0.11-0.59) K/uL Eos # (Auto) (0.00-0.50) K/uL Baso # (Auto) (0.00-0.20) K/uL Immature Gran # (Auto) (0.01-0.20) K/uL Absolute Nucleated RBC (0.00-0.12) K/uL Nucleated RBC % (auto) % Neutrophils % (Manual) % Lymphocytes % (Manual) % Monocytes % (Manual) % Eosinophils % (Manual) % Metamyelocytes % (Man) % Myelocytes % (Man) % Plasma Cell % (Manual) % Neutrophils # (Manual) (1.40-6.50) K/uL Total Absolute Neuts (1.4-6.5) K/uL Lymphocytes # (Manual) (1.2-3.4) K/uL Total Abs Lymphocytes (1.2-3.4) K/uL Monocytes # (Manual) (0.11-0.59) K/uL Eosinophils # (Manual) (0-0.50) K/uL Metamyelocytes # (Man) (0-0) K/uL Myelocytes # (Manual) (0-0) K/uL Plasma Cell # (Manual) (0-0) K/uL Hypersegmented Neuts Blood Smear Review Toxic Vacuolation Hypochromasia Polychromasia Spherocytes Echinocytes PT (9.0-12.0) Seconds INR (0.9-1.1) APTT (21.0-31.0) Seconds PTT Ratio Sodium (136-145) mmol/L Potassium (3.5-5.1) mmol/L Chloride (98-107) mmol/L Carbon Dioxide (21-32) mmol/L Anion Gap (3-11) BUN (6-23) mg/dl Creatinine (0.6-1.2) mg/dl Est Cr Clr Drug Dosing ml/min Est GFR ( Amer) ml/min Est GFR (Non-Af Amer) ml/min BUN/Creatinine Ratio (10-20) Glucose (70-99(Fasting)) mg/dl POC Glucose 179 H (70-99) mg/dl Lactate (0.4-2.0) mmol/L Calcium (8.6-10.3) mg/dl Phosphorus (2.5-4.9) mg/dl Magnesium (1.7-2.4) mg/dl Total Bilirubin (0.2-1.0) mg/dl AST (13-39) U/L ALT (7-52) U/L Alkaline Phosphatase (34-104) U/L Total Creatine Kinase (26-192) U/L C-Reactive Protein (0-0.5) mg/dl Total Protein (6.0-8.3) gm/dl Albumin (3.4-5.0) gm/dl Globulin (2.5-4.0) gm/dl Albumin/Globulin Ratio (0.9-2) Triglycerides (0-150) mg/dl Procalcitonin (0-0.5) ng/ml Urine Color Urine Appearance (Clear) Urine pH (4.5-7.5) Ur Specific [place] (1.000-1.030) Urine Protein (Negative) Urine Glucose (UA) (Negative) Urine Ketones (Negative) Urine Blood (Negative) Urine Nitrite (Negative) Urine Bilirubin (Negative) Urine Urobilinogen (Negative) Ur Leukocyte Esterase (Negative) Urine WBC (Auto) (0-5) /hpf Urine RBC (Auto) (0-4) /hpf U Hyaline Cast (Auto) (0-5) /lpf U Epithel Cells (Auto) (0-5) /lpf Urine Bacteria (Auto) (Negative) Ur Renal Epithelial Cell (0-5) /lpf Amorphous Sediment (None Prsent) Urine Yeast Urine Osmolality (500-800) mOsm/kg Ur Random Creatinine mg/dl Ur Random Sodium mmol/L Stool Occult Bld Scrn Positive A (Negative) A. phagocytophilum DNA (Negative) Hep Bs Antigen (NON-REACTIVE) Hep Bs Ag Confirmation Hep Bs Antibody, Quant (> OR = 10) mIU/mL Hep B Core IgM Ab (NON-REACTIVE) Blood Type Antibody Screen Crossmatch 02/22/23 02/22/23 02/23/23 Range/Units 18:55 20:50 00:53 WBC (4.8-10.8) K/ul RBC (4.20-5.40) M/uL Hgb 7.0 L (12.0-16.0) g/dl Hct 22.3 L (37.0-47.0) % MCV (80.0-100.0) fL MCH (25.0-34.0) pg MCHC (32.0-36.0) g/dL RDW Std Deviation (36.4-46.3) fL RDW Coeff of Mari (11.5-14.5) % Plt Count (130-400) K/uL MPV (9.4-12.4) fL Immature Gran % (Auto) % Neut % (Auto) % Lymph % (Auto) % Stearns % (Auto) % Eos % (Auto) % Baso % (Auto) % Neut # (Auto) (1.40-6.50) K/uL Lymph # (Auto) (1.20-3.40) K/uL Ste[place]s # (Auto) (0.11-0.59) K/uL Eos # (Auto) (0.00-0.50) K/uL Baso # (Auto) (0.00-0.20) K/uL Immature Gran # (Auto) (0.01-0.20) K/uL Absolute Nucleated RBC (0.00-0.12) K/uL Nucleated RBC % (auto) % Neutrophils % (Manual) % Lymphocytes % (Manual) % Monocytes % (Manual) % Eosinophils % (Manual) % Metamyelocytes % (Man) % Myelocytes % (Man) % Plasma Cell % (Manual) % Neutrophils # (Manual) (1.40-6.50) K/uL Total Absolute Neuts (1.4-6.5) K/uL Lymphocytes # (Manual) (1.2-3.4) K/uL Total Abs Lymphocytes (1.2-3.4) K/uL Monocytes # (Manual) (0.11-0.59) K/uL Eosinophils # (Manual) (0-0.50) K/uL Metamyelocytes # (Man) (0-0) K/uL Myelocytes # (Manual) (0-0) K/uL Plasma Cell # (Manual) (0-0) K/uL Hypersegmented Neuts Blood Smear Review Toxic Vacuolation Hypochromasia Polychromasia Spherocytes Echinocytes PT (9.0-12.0) Seconds INR (0.9-1.1) APTT (21.0-31.0) Seconds PTT Ratio Sodium (136-145) mmol/L Potassium (3.5-5.1) mmol/L Chloride (98-107) mmol/L Carbon Dioxide (21-32) mmol/L Anion Gap (3-11) BUN (6-23) mg/dl Creatinine (0.6-1.2) mg/dl Est Cr Clr Drug Dosing ml/min Est GFR ( Amer) ml/min Est GFR (Non-Af Amer) ml/min BUN/Creatinine Ratio (10-20) Glucose (70-99(Fasting)) mg/dl POC Glucose 215 H 247 H (70-99) mg/dl Lactate (0.4-2.0) mmol/L Calcium (8.6-10.3) mg/dl Phosphorus (2.5-4.9) mg/dl Magnesium (1.7-2.4) mg/dl Total Bilirubin (0.2-1.0) mg/dl AST (13-39) U/L ALT (7-52) U/L Alkaline Phosphatase (34-104) U/L Total Creatine Kinase (26-192) U/L C-Reactive Protein (0-0.5) mg/dl Total Protein (6.0-8.3) gm/dl Albumin (3.4-5.0) gm/dl Globulin (2.5-4.0) gm/dl Albumin/Globulin Ratio (0.9-2) Triglycerides (0-150) mg/dl Procalcitonin (0-0.5) ng/ml Urine Color Urine Appearance (Clear) Urine pH (4.5-7.5) Ur Specific [place] (1.000-1.030) Urine Protein (Negative) Urine Glucose (UA) (Negative) Urine Ketones (Negative) Urine Blood (Negative) Urine Nitrite (Negative) Urine Bilirubin (Negative) Urine Urobilinogen (Negative) Ur Leukocyte Esterase (Negative) Urine WBC (Auto) (0-5) /hpf Urine RBC (Auto) (0-4) /hpf U Hyaline Cast (Auto) (0-5) /lpf U Epithel Cells (Auto) (0-5) /lpf Urine Bacteria (Auto) (Negative) Ur Renal Epithelial Cell (0-5) /lpf Amorphous Sediment (None Prsent) Urine Yeast Urine Osmolality (500-800) mOsm/kg Ur Random Creatinine mg/dl Ur Random Sodium mmol/L Stool Occult Bld Scrn (Negative) A. phagocytophilum DNA (Negative) Hep Bs Antigen (NON-REACTIVE) Hep Bs Ag Confirmation Hep Bs Antibody, Quant (> OR = 10) mIU/mL Hep B Core IgM Ab (NON-REACTIVE) Blood Type Antibody Screen Crossmatch 02/23/23 02/23/23 02/23/23 Range/Units 05:58 06:02 08:02 WBC 20.00 H (4.8-10.8) K/ul RBC 2.45 L (4.20-5.40) M/uL Hgb 6.4 L* (12.0-16.0) g/dl Hct 19.6 L* (37.0-47.0) % MCV 80.0 (80.0-100.0) fL MCH 26.1 (25.0-34.0) pg MCHC 32.7 (32.0-36.0) g/dL RDW Std Deviation 54.3 H (36.4-46.3) fL RDW Coeff of Mari 18.6 H (11.5-14.5) % Plt Count 453 H (130-400) K/uL MPV 10.9 (9.4-12.4) fL Immature Gran % (Auto) % Neut % (Auto) % Lymph % (Auto) % Stearns % (Auto) % Eos % (Auto) % Baso % (Auto) % Neut # (Auto) (1.40-6.50) K/uL Lymph # (Auto) (1.20-3.40) K/uL Stearns # (Auto) (0.11-0.59) K/uL Eos # (Auto) (0.00-0.50) K/uL Baso # (Auto) (0.00-0.20) K/uL Immature Gran # (Auto) (0.01-0.20) K/uL Absolute Nucleated RBC 0.04 (0.00-0.12) K/uL Nucleated RBC % (auto) 0.2 % Neutrophils % (Manual) 84 % Lymphocytes % (Manual) 8 % Monocytes % (Manual) 3 % Eosinophils % (Manual) % Metamyelocytes % (Man) 3 % Myelocytes % (Man) % Plasma Cell % (Manual) 2 % Neutrophils # (Manual) 16.80 H (1.40-6.50) K/uL Total Absolute Neuts 16.80 H (1.4-6.5) K/uL Lymphocytes # (Manual) 1.60 (1.2-3.4) K/uL Total Abs Lymphocytes 2.00 (1.2-3.4) K/uL Monocytes # (Manual) 0.60 H (0.11-0.59) K/uL Eosinophils # (Manual) (0-0.50) K/uL Metamyelocytes # (Man) 0.60 H (0-0) K/uL Myelocytes # (Manual) (0-0) K/uL Plasma Cell # (Manual) 0.40 H (0-0) K/uL Hypersegmented Neuts Blood Smear Review Toxic Vacuolation Hypochromasia Polychromasia 1+ Spherocytes Echinocytes PT (9.0-12.0) Seconds INR (0.9-1.1) APTT (21.0-31.0) Seconds PTT Ratio Sodium 132 L (136-145) mmol/L Potassium 5.0 (3.5-5.1) mmol/L Chloride 98 (98-107) mmol/L Carbon Dioxide 19 L (21-32) mmol/L Anion Gap 15 H (3-11) BUN 104 H (6-23) mg/dl Creatinine 5.64 H* D (0.6-1.2) mg/dl Est Cr Clr Drug Dosing 7.0 ml/min Est GFR ( Amer) 7.2 ml/min Est GFR (Non-Af Amer) 6.2 ml/min BUN/Creatinine Ratio 18.4 (10-20) Glucose 240 H (70-99(Fasting)) mg/dl POC Glucose 263 H 273 H (70-99) mg/dl Lactate (0.4-2.0) mmol/L Calcium 9.0 (8.6-10.3) mg/dl Phosphorus 5.3 H (2.5-4.9) mg/dl Magnesium 2.1 (1.7-2.4) mg/dl Total Bilirubin (0.2-1.0) mg/dl AST (13-39) U/L ALT (7-52) U/L Alkaline Phosphatase (34-104) U/L Total Creatine Kinase (26-192) U/L C-Reactive Protein (0-0.5) mg/dl Total Protein (6.0-8.3) gm/dl Albumin 2.3 L (3.4-5.0) gm/dl Globulin (2.5-4.0) gm/dl Albumin/Globulin Ratio (0.9-2) Triglycerides (0-150) mg/dl Procalcitonin (0-0.5) ng/ml Urine Color Urine Appearance (Clear) Urine pH (4.5-7.5) Ur Specific [place] (1.000-1.030) Urine Protein (Negative) Urine Glucose (UA) (Negative) Urine Ketones (Negative) Urine Blood (Negative) Urine Nitrite (Negative) Urine Bilirubin (Negative) Urine Urobilinogen (Negative) Ur Leukocyte Esterase (Negative) Urine WBC (Auto) (0-5) /hpf Urine RBC (Auto) (0-4) /hpf U Hyaline Cast (Auto) (0-5) /lpf U Epithel Cells (Auto) (0-5) /lpf Urine Bacteria (Auto) (Negative) Ur Renal Epithelial Cell (0-5) /lpf Amorphous Sediment (None Prsent) Urine Yeast Urine Osmolality (500-800) mOsm/kg Ur Random Creatinine mg/dl Ur Random Sodium mmol/L Stool Occult Bld Scrn (Negative) A. phagocytophilum DNA (Negative) Hep Bs Antigen (NON-REACTIVE) Hep Bs Ag Confirmation Hep Bs Antibody, Quant (> OR = 10) mIU/mL Hep B Core IgM Ab (NON-REACTIVE) Blood Type Antibody Screen Crossmatch 02/23/23 02/23/23 02/23/23 Range/Units 12:08 17:31 19:41 WBC (4.8-10.8) K/ul RBC (4.20-5.40) M/uL Hgb 9.2 L (12.0-16.0) g/dl Hct 25.9 L (37.0-47.0) % MCV (80.0-100.0) fL MCH (25.0-34.0) pg MCHC (32.0-36.0) g/dL RDW Std Deviation (36.4-46.3) fL RDW Coeff of Mari (11.5-14.5) % Plt Count (130-400) K/uL MPV (9.4-12.4) fL Immature Gran % (Auto) % Neut % (Auto) % Lymph % (Auto) % Stearns % (Auto) % Eos % (Auto) % Baso % (Auto) % Neut # (Auto) (1.40-6.50) K/uL Lymph # (Auto) (1.20-3.40) K/uL Ste[place]s # (Auto) (0.11-0.59) K/uL Eos # (Auto) (0.00-0.50) K/uL Baso # (Auto) (0.00-0.20) K/uL Immature Gran # (Auto) (0.01-0.20) K/uL Absolute Nucleated RBC (0.00-0.12) K/uL Nucleated RBC % (auto) % Neutrophils % (Manual) % Lymphocytes % (Manual) % Monocytes % (Manual) % Eosinophils % (Manual) % Metamyelocytes % (Man) % Myelocytes % (Man) % Plasma Cell % (Manual) % Neutrophils # (Manual) (1.40-6.50) K/uL Total Absolute Neuts (1.4-6.5) K/uL Lymphocytes # (Manual) (1.2-3.4) K/uL Total Abs Lymphocytes (1.2-3.4) K/uL Monocytes # (Manual) (0.11-0.59) K/uL Eosinophils # (Manual) (0-0.50) K/uL Metamyelocytes # (Man) (0-0) K/uL Myelocytes # (Manual) (0-0) K/uL Plasma Cell # (Manual) (0-0) K/uL Hypersegmented Neuts Blood Smear Review Toxic Vacuolation Hypochromasia Polychromasia Spherocytes Echinocytes PT 11.3 (9.0-12.0) Seconds INR 1.0 (0.9-1.1) APTT 24.9 (21.0-31.0) Seconds PTT Ratio 0.9 Sodium (136-145) mmol/L Potassium (3.5-5.1) mmol/L Chloride (98-107) mmol/L Carbon Dioxide (21-32) mmol/L Anion Gap (3-11) BUN (6-23) mg/dl Creatinine (0.6-1.2) mg/dl Est Cr Clr Drug Dosing ml/min Est GFR ( Amer) ml/min Est GFR (Non-Af Amer) ml/min BUN/Creatinine Ratio (10-20) Glucose (70-99(Fasting)) mg/dl POC Glucose 273 H 154 H (70-99) mg/dl Lactate (0.4-2.0) mmol/L Calcium (8.6-10.3) mg/dl Phosphorus (2.5-4.9) mg/dl Magnesium (1.7-2.4) mg/dl Total Bilirubin (0.2-1.0) mg/dl AST (13-39) U/L ALT (7-52) U/L Alkaline Phosphatase (34-104) U/L Total Creatine Kinase (26-192) U/L C-Reactive Protein (0-0.5) mg/dl Total Protein (6.0-8.3) gm/dl Albumin (3.4-5.0) gm/dl Globulin (2.5-4.0) gm/dl Albumin/Globulin Ratio (0.9-2) Triglycerides (0-150) mg/dl Procalcitonin (0-0.5) ng/ml Urine Color Urine Appearance (Clear) Urine pH (4.5-7.5) Ur Specific [place] (1.000-1.030) Urine Protein (Negative) Urine Glucose (UA) (Negative) Urine Ketones (Negative) Urine Blood (Negative) Urine Nitrite (Negative) Urine Bilirubin (Negative) Urine Urobilinogen (Negative) Ur Leukocyte Esterase (Negative) Urine WBC (Auto) (0-5) /hpf Urine RBC (Auto) (0-4) /hpf U Hyaline Cast (Auto) (0-5) /lpf U Epithel Cells (Auto) (0-5) /lpf Urine Bacteria (Auto) (Negative) Ur Renal Epithelial Cell (0-5) /lpf Amorphous Sediment (None Prsent) Urine Yeast Urine Osmolality (500-800) mOsm/kg Ur Random Creatinine mg/dl Ur Random Sodium mmol/L Stool Occult Bld Scrn (Negative) A. phagocytophilum DNA (Negative) Hep Bs Antigen (NON-REACTIVE) Hep Bs Ag Confirmation Hep Bs Antibody, Quant (> OR = 10) mIU/mL Hep B Core IgM Ab (NON-REACTIVE) Blood Type Antibody Screen Crossmatch 02/23/23 02/23/23 02/24/23 Range/Units 20:27 23:58 04:06 WBC (4.8-10.8) K/ul RBC (4.20-5.40) M/uL Hgb (12.0-16.0) g/dl Hct (37.0-47.0) % MCV (80.0-100.0) fL MCH (25.0-34.0) pg MCHC (32.0-36.0) g/dL RDW Std Deviation (36.4-46.3) fL RDW Coeff of Mari (11.5-14.5) % Plt Count (130-400) K/uL MPV (9.4-12.4) fL Immature Gran % (Auto) % Neut % (Auto) % Lymph % (Auto) % Stearns % (Auto) % Eos % (Auto) % Baso % (Auto) % Neut # (Auto) (1.40-6.50) K/uL Lymph # (Auto) (1.20-3.40) K/uL Stearns # (Auto) (0.11-0.59) K/uL Eos # (Auto) (0.00-0.50) K/uL Baso # (Auto) (0.00-0.20) K/uL Immature Gran # (Auto) (0.01-0.20) K/uL Absolute Nucleated RBC (0.00-0.12) K/uL Nucleated RBC % (auto) % Neutrophils % (Manual) % Lymphocytes % (Manual) % Monocytes % (Manual) % Eosinophils % (Manual) % Metamyelocytes % (Man) % Myelocytes % (Man) % Plasma Cell % (Manual) % Neutrophils # (Manual) (1.40-6.50) K/uL Total Absolute Neuts (1.4-6.5) K/uL Lymphocytes # (Manual) (1.2-3.4) K/uL Total Abs Lymphocytes (1.2-3.4) K/uL Monocytes # (Manual) (0.11-0.59) K/uL Eosinophils # (Manual) (0-0.50) K/uL Metamyelocytes # (Man) (0-0) K/uL Myelocytes # (Manual) (0-0) K/uL Plasma Cell # (Manual) (0-0) K/uL Hypersegmented Neuts Blood Smear Review Toxic Vacuolation Hypochromasia Polychromasia Spherocytes Echinocytes PT (9.0-12.0) Seconds INR (0.9-1.1) APTT (21.0-31.0) Seconds PTT Ratio Sodium (136-145) mmol/L Potassium (3.5-5.1) mmol/L Chloride (98-107) mmol/L Carbon Dioxide (21-32) mmol/L Anion Gap (3-11) BUN (6-23) mg/dl Creatinine (0.6-1.2) mg/dl Est Cr Clr Drug Dosing ml/min Est GFR ( Amer) ml/min Est GFR (Non-Af Amer) ml/min BUN/Creatinine Ratio (10-20) Glucose (70-99(Fasting)) mg/dl POC Glucose 189 H 234 H 240 H (70-99) mg/dl Lactate (0.4-2.0) mmol/L Calcium (8.6-10.3) mg/dl Phosphorus (2.5-4.9) mg/dl Magnesium (1.7-2.4) mg/dl Total Bilirubin (0.2-1.0) mg/dl AST (13-39) U/L ALT (7-52) U/L Alkaline Phosphatase (34-104) U/L Total Creatine Kinase (26-192) U/L C-Reactive Protein (0-0.5) mg/dl Total Protein (6.0-8.3) gm/dl Albumin (3.4-5.0) gm/dl Globulin (2.5-4.0) gm/dl Albumin/Globulin Ratio (0.9-2) Triglycerides (0-150) mg/dl Procalcitonin (0-0.5) ng/ml Urine Color Urine Appearance (Clear) Urine pH (4.5-7.5) Ur Specific [place] (1.000-1.030) Urine Protein (Negative) Urine Glucose (UA) (Negative) Urine Ketones (Negative) Urine Blood (Negative) Urine Nitrite (Negative) Urine Bilirubin (Negative) Urine Urobilinogen (Negative) Ur Leukocyte Esterase (Negative) Urine WBC (Auto) (0-5) /hpf Urine RBC (Auto) (0-4) /hpf U Hyaline Cast (Auto) (0-5) /lpf U Epithel Cells (Auto) (0-5) /lpf Urine Bacteria (Auto) (Negative) Ur Renal Epithelial Cell (0-5) /lpf Amorphous Sediment (None Prsent) Urine Yeast Urine Osmolality (500-800) mOsm/kg Ur Random Creatinine mg/dl Ur Random Sodium mmol/L Stool Occult Bld Scrn (Negative) A. phagocytophilum DNA (Negative) Hep Bs Antigen (NON-REACTIVE) Hep Bs Ag Confirmation Hep Bs Antibody, Quant (> OR = 10) mIU/mL Hep B Core IgM Ab (NON-REACTIVE) Blood Type Antibody Screen Crossmatch 02/24/23 02/24/23 02/24/23 Range/Units 05:33 07:38 10:15 WBC 21.76 H (4.8-10.8) K/ul RBC 3.34 L (4.20-5.40) M/uL Hgb 9.1 L (12.0-16.0) g/dl Hct 27.3 L (37.0-47.0) % MCV 81.7 (80.0-100.0) fL MCH 27.2 (25.0-34.0) pg MCHC 33.3 (32.0-36.0) g/dL RDW Std Deviation 49.5 H (36.4-46.3) fL RDW Coeff of Mari 16.6 H (11.5-14.5) % Plt Count 451 H (130-400) K/uL MPV 10.8 (9.4-12.4) fL Immature Gran % (Auto) % Neut % (Auto) % Lymph % (Auto) % Stearns % (Auto) % Eos % (Auto) % Baso % (Auto) % Neut # (Auto) (1.40-6.50) K/uL Lymph # (Auto) (1.20-3.40) K/uL Ste[place]s # (Auto) (0.11-0.59) K/uL Eos # (Auto) (0.00-0.50) K/uL Baso # (Auto) (0.00-0.20) K/uL Immature Gran # (Auto) (0.01-0.20) K/uL Absolute Nucleated RBC 0.08 (0.00-0.12) K/uL Nucleated RBC % (auto) 0.4 % Neutrophils % (Manual) 85 % Lymphocytes % (Manual) 8 % Monocytes % (Manual) 3 % Eosinophils % (Manual) 2 % Metamyelocytes % (Man) 1 % Myelocytes % (Man) 1 % Plasma Cell % (Manual) % Neutrophils # (Manual) 18.50 H (1.40-6.50) K/uL Total Absolute Neuts 18.50 H (1.4-6.5) K/uL Lymphocytes # (Manual) 1.74 (1.2-3.4) K/uL Total Abs Lymphocytes 1.74 (1.2-3.4) K/uL Monocytes # (Manual) 0.65 H (0.11-0.59) K/uL Eosinophils # (Manual) 0.44 (0-0.50) K/uL Metamyelocytes # (Man) 0.22 H (0-0) K/uL Myelocytes # (Manual) 0.22 H (0-0) K/uL Plasma Cell # (Manual) (0-0) K/uL Hypersegmented Neuts 1+ Blood Smear Review Toxic Vacuolation Hypochromasia Polychromasia Spherocytes Echinocytes PT 11.4 (9.0-12.0) Seconds INR 1.0 (0.9-1.1) APTT 25.6 (21.0-31.0) Seconds PTT Ratio 0.9 Sodium 136 (136-145) mmol/L Potassium 4.3 (3.5-5.1) mmol/L Chloride 99 (98-107) mmol/L Carbon Dioxide 22 (21-32) mmol/L Anion Gap 15 H (3-11) BUN 93 H (6-23) mg/dl Creatinine 4.96 H* D (0.6-1.2) mg/dl Est Cr Clr Drug Dosing 8.0 ml/min Est GFR ( Amer) 8.4 ml/min Est GFR (Non-Af Amer) 7.3 ml/min BUN/Creatinine Ratio 18.8 (10-20) Glucose 213 H (70-99(Fasting)) mg/dl POC Glucose 212 H (70-99) mg/dl Lactate (0.4-2.0) mmol/L Calcium 9.1 (8.6-10.3) mg/dl Phosphorus 4.1 D (2.5-4.9) mg/dl Magnesium 1.9 (1.7-2.4) mg/dl Total Bilirubin (0.2-1.0) mg/dl AST (13-39) U/L ALT (7-52) U/L Alkaline Phosphatase (34-104) U/L Total Creatine Kinase < 10 L (26-192) U/L C-Reactive Protein (0-0.5) mg/dl Total Protein (6.0-8.3) gm/dl Albumin (3.4-5.0) gm/dl Globulin (2.5-4.0) gm/dl Albumin/Globulin Ratio (0.9-2) Triglycerides (0-150) mg/dl Procalcitonin (0-0.5) ng/ml Urine Color Urine Appearance (Clear) Urine pH (4.5-7.5) Ur Specific [place] (1.000-1.030) Urine Protein (Negative) Urine Glucose (UA) (Negative) Urine Ketones (Negative) Urine Blood (Negative) Urine Nitrite (Negative) Urine Bilirubin (Negative) Urine Urobilinogen (Negative) Ur Leukocyte Esterase (Negative) Urine WBC (Auto) (0-5) /hpf Urine RBC (Auto) (0-4) /hpf U Hyaline Cast (Auto) (0-5) /lpf U Epithel Cells (Auto) (0-5) /lpf Urine Bacteria (Auto) (Negative) Ur Renal Epithelial Cell (0-5) /lpf Amorphous Sediment (None Prsent) Urine Yeast Urine Osmolality (500-800) mOsm/kg Ur Random Creatinine mg/dl Ur Random Sodium mmol/L Stool Occult Bld Scrn (Negative) A. phagocytophilum DNA (Negative) Hep Bs Antigen NON-REACTIVE (NON-REACTIVE) Hep Bs Ag Confirmation TNP Hep Bs Antibody, Quant <5 L (> OR = 10) mIU/mL Hep B Core IgM Ab NON-REACTIVE (NON-REACTIVE) Blood Type Antibody Screen Crossmatch 02/24/23 02/24/23 02/24/23 Range/Units 11:46 16:12 20:12 WBC (4.8-10.8) K/ul RBC (4.20-5.40) M/uL Hgb (12.0-16.0) g/dl Hct (37.0-47.0) % MCV (80.0-100.0) fL MCH (25.0-34.0) pg MCHC (32.0-36.0) g/dL RDW Std Deviation (36.4-46.3) fL RDW Coeff of Mari (11.5-14.5) % Plt Count (130-400) K/uL MPV (9.4-12.4) fL Immature Gran % (Auto) % Neut % (Auto) % Lymph % (Auto) % [place]s % (Auto) % Eos % (Auto) % Baso % (Auto) % Neut # (Auto) (1.40-6.50) K/uL Lymph # (Auto) (1.20-3.40) K/uL [place]s # (Auto) (0.11-0.59) K/uL Eos # (Auto) (0.00-0.50) K/uL Baso # (Auto) (0.00-0.20) K/uL Immature Gran # (Auto) (0.01-0.20) K/uL Absolute Nucleated RBC (0.00-0.12) K/uL Nucleated RBC % (auto) % Neutrophils % (Manual) % Lymphocytes % (Manual) % Monocytes % (Manual) % Eosinophils % (Manual) % Metamyelocytes % (Man) % Myelocytes % (Man) % Plasma Cell % (Manual) % Neutrophils # (Manual) (1.40-6.50) K/uL Total Absolute Neuts (1.4-6.5) K/uL Lymphocytes # (Manual) (1.2-3.4) K/uL Total Abs Lymphocytes (1.2-3.4) K/uL Monocytes # (Manual) (0.11-0.59) K/uL Eosinophils # (Manual) (0-0.50) K/uL Metamyelocytes # (Man) (0-0) K/uL Myelocytes # (Manual) (0-0) K/uL Plasma Cell # (Manual) (0-0) K/uL Hypersegmented Neuts Blood Smear Review Toxic Vacuolation Hypochromasia Polychromasia Spherocytes Echinocytes PT (9.0-12.0) Seconds INR (0.9-1.1) APTT (21.0-31.0) Seconds PTT Ratio Sodium (136-145) mmol/L Potassium (3.5-5.1) mmol/L Chloride (98-107) mmol/L Carbon Dioxide (21-32) mmol/L Anion Gap (3-11) BUN (6-23) mg/dl Creatinine (0.6-1.2) mg/dl Est Cr Clr Drug Dosing ml/min Est GFR ( Amer) ml/min Est GFR (Non-Af Amer) ml/min BUN/Creatinine Ratio (10-20) Glucose (70-99(Fasting)) mg/dl POC Glucose 146 H 179 H 226 H (70-99) mg/dl Lactate (0.4-2.0) mmol/L Calcium (8.6-10.3) mg/dl Phosphorus (2.5-4.9) mg/dl Magnesium (1.7-2.4) mg/dl Total Bilirubin (0.2-1.0) mg/dl AST (13-39) U/L ALT (7-52) U/L Alkaline Phosphatase (34-104) U/L Total Creatine Kinase (26-192) U/L C-Reactive Protein (0-0.5) mg/dl Total Protein (6.0-8.3) gm/dl Albumin (3.4-5.0) gm/dl Globulin (2.5-4.0) gm/dl Albumin/Globulin Ratio (0.9-2) Triglycerides (0-150) mg/dl Procalcitonin (0-0.5) ng/ml Urine Color Urine Appearance (Clear) Urine pH (4.5-7.5) Ur Specific [place] (1.000-1.030) Urine Protein (Negative) Urine Glucose (UA) (Negative) Urine Ketones (Negative) Urine Blood (Negative) Urine Nitrite (Negative) Urine Bilirubin (Negative) Urine Urobilinogen (Negative) Ur Leukocyte Esterase (Negative) Urine WBC (Auto) (0-5) /hpf Urine RBC (Auto) (0-4) /hpf U Hyaline Cast (Auto) (0-5) /lpf U Epithel Cells (Auto) (0-5) /lpf Urine Bacteria (Auto) (Negative) Ur Renal Epithelial Cell (0-5) /lpf Amorphous Sediment (None Prsent) Urine Yeast Urine Osmolality (500-800) mOsm/kg Ur Random Creatinine mg/dl Ur Random Sodium mmol/L Stool Occult Bld Scrn (Negative) A. phagocytophilum DNA (Negative) Hep Bs Antigen (NON-REACTIVE) Hep Bs Ag Confirmation Hep Bs Antibody, Quant (> OR = 10) mIU/mL Hep B Core IgM Ab (NON-REACTIVE) Blood Type Antibody Screen Crossmatch 02/25/23 02/25/23 02/25/23 Range/Units 00:01 04:25 07:32 WBC 19.19 H (4.8-10.8) K/ul RBC 2.93 L (4.20-5.40) M/uL Hgb 8.0 L (12.0-16.0) g/dl Hct 23.6 L (37.0-47.0) % MCV 80.5 (80.0-100.0) fL MCH 27.3 (25.0-34.0) pg MCHC 33.9 (32.0-36.0) g/dL RDW Std Deviation 49.5 H (36.4-46.3) fL RDW Coeff of Mari 17.0 H (11.5-14.5) % Plt Count 494 H (130-400) K/uL MPV 10.6 (9.4-12.4) fL Immature Gran % (Auto) % Neut % (Auto) % Lymph % (Auto) % [place] % (Auto) % Eos % (Auto) % Baso % (Auto) % Neut # (Auto) (1.40-6.50) K/uL Lymph # (Auto) (1.20-3.40) K/uL [place]s # (Auto) (0.11-0.59) K/uL Eos # (Auto) (0.00-0.50) K/uL Baso # (Auto) (0.00-0.20) K/uL Immature Gran # (Auto) (0.01-0.20) K/uL Absolute Nucleated RBC 0.05 (0.00-0.12) K/uL Nucleated RBC % (auto) 0.3 % Neutrophils % (Manual) 82 % Lymphocytes % (Manual) 6 % Monocytes % (Manual) 2 % Eosinophils % (Manual) 2 % Metamyelocytes % (Man) 5 % Myelocytes % (Man) 3 % Plasma Cell % (Manual) % Neutrophils # (Manual) 15.74 H (1.40-6.50) K/uL Total Absolute Neuts 15.74 H (1.4-6.5) K/uL Lymphocytes # (Manual) 1.15 L (1.2-3.4) K/uL Total Abs Lymphocytes 1.15 L (1.2-3.4) K/uL Monocytes # (Manual) 0.38 (0.11-0.59) K/uL Eosinophils # (Manual) 0.38 (0-0.50) K/uL Metamyelocytes # (Man) 0.96 H (0-0) K/uL Myelocytes # (Manual) 0.58 H (0-0) K/uL Plasma Cell # (Manual) (0-0) K/uL Hypersegmented Neuts Blood Smear Review Toxic Vacuolation Hypochromasia Polychromasia 1+ Spherocytes Echinocytes PT (9.0-12.0) Seconds INR (0.9-1.1) APTT (21.0-31.0) Seconds PTT Ratio Sodium 136 (136-145) mmol/L Potassium 3.9 (3.5-5.1) mmol/L Chloride 99 (98-107) mmol/L Carbon Dioxide 24 (21-32) mmol/L Anion Gap 13 H (3-11) BUN 100 H (6-23) mg/dl Creatinine 4.66 H* D (0.6-1.2) mg/dl Est Cr Clr Drug Dosing 8.6 ml/min Est GFR ( Amer) 9.1 ml/min Est GFR (Non-Af Amer) 7.8 ml/min BUN/Creatinine Ratio 21.5 H (10-20) Glucose 203 H (70-99(Fasting)) mg/dl POC Glucose 224 H 242 H (70-99) mg/dl Lactate (0.4-2.0) mmol/L Calcium 8.8 (8.6-10.3) mg/dl Phosphorus 4.1 (2.5-4.9) mg/dl Magnesium 1.7 (1.7-2.4) mg/dl Total Bilirubin (0.2-1.0) mg/dl AST (13-39) U/L ALT (7-52) U/L Alkaline Phosphatase (34-104) U/L Total Creatine Kinase (26-192) U/L C-Reactive Protein (0-0.5) mg/dl Total Protein (6.0-8.3) gm/dl Albumin (3.4-5.0) gm/dl Globulin (2.5-4.0) gm/dl Albumin/Globulin Ratio (0.9-2) Triglycerides (0-150) mg/dl Procalcitonin (0-0.5) ng/ml Urine Color Urine Appearance (Clear) Urine pH (4.5-7.5) Ur Specific [place] (1.000-1.030) Urine Protein (Negative) Urine Glucose (UA) (Negative) Urine Ketones (Negative) Urine Blood (Negative) Urine Nitrite (Negative) Urine Bilirubin (Negative) Urine Urobilinogen (Negative) Ur Leukocyte Esterase (Negative) Urine WBC (Auto) (0-5) /hpf Urine RBC (Auto) (0-4) /hpf U Hyaline Cast (Auto) (0-5) /lpf U Epithel Cells (Auto) (0-5) /lpf Urine Bacteria (Auto) (Negative) Ur Renal Epithelial Cell (0-5) /lpf Amorphous Sediment (None Prsent) Urine Yeast Urine Osmolality (500-800) mOsm/kg Ur Random Creatinine mg/dl Ur Random Sodium mmol/L Stool Occult Bld Scrn (Negative) A. phagocytophilum DNA (Negative) Hep Bs Antigen (NON-REACTIVE) Hep Bs Ag Confirmation Hep Bs Antibody, Quant (> OR = 10) mIU/mL Hep B Core IgM Ab (NON-REACTIVE) Blood Type Antibody Screen Crossmatch 02/25/23 02/25/23 02/25/23 Range/Units 08:00 11:40 15:47 WBC (4.8-10.8) K/ul RBC (4.20-5.40) M/uL Hgb 7.7 L (12.0-16.0) g/dl Hct 23.4 L (37.0-47.0) % MCV (80.0-100.0) fL MCH (25.0-34.0) pg MCHC (32.0-36.0) g/dL RDW Std Deviation (36.4-46.3) fL RDW Coeff of Mari (11.5-14.5) % Plt Count (130-400) K/uL MPV (9.4-12.4) fL Immature Gran % (Auto) % Neut % (Auto) % Lymph % (Auto) % Stearns % (Auto) % Eos % (Auto) % Baso % (Auto) % Neut # (Auto) (1.40-6.50) K/uL Lymph # (Auto) (1.20-3.40) K/uL Stearns # (Auto) (0.11-0.59) K/uL Eos # (Auto) (0.00-0.50) K/uL Baso # (Auto) (0.00-0.20) K/uL Immature Gran # (Auto) (0.01-0.20) K/uL Absolute Nucleated RBC (0.00-0.12) K/uL Nucleated RBC % (auto) % Neutrophils % (Manual) % Lymphocytes % (Manual) % Monocytes % (Manual) % Eosinophils % (Manual) % Metamyelocytes % (Man) % Myelocytes % (Man) % Plasma Cell % (Manual) % Neutrophils # (Manual) (1.40-6.50) K/uL Total Absolute Neuts (1.4-6.5) K/uL Lymphocytes # (Manual) (1.2-3.4) K/uL Total Abs Lymphocytes (1.2-3.4) K/uL Monocytes # (Manual) (0.11-0.59) K/uL Eosinophils # (Manual) (0-0.50) K/uL Metamyelocytes # (Man) (0-0) K/uL Myelocytes # (Manual) (0-0) K/uL Plasma Cell # (Manual) (0-0) K/uL Hypersegmented Neuts Blood Smear Review Toxic Vacuolation Hypochromasia Polychromasia Spherocytes Echinocytes PT (9.0-12.0) Seconds INR (0.9-1.1) APTT (21.0-31.0) Seconds PTT Ratio Sodium (136-145) mmol/L Potassium (3.5-5.1) mmol/L Chloride (98-107) mmol/L Carbon Dioxide (21-32) mmol/L Anion Gap (3-11) BUN (6-23) mg/dl Creatinine (0.6-1.2) mg/dl Est Cr Clr Drug Dosing ml/min Est GFR ( Amer) ml/min Est GFR (Non-Af Amer) ml/min BUN/Creatinine Ratio (10-20) Glucose (70-99(Fasting)) mg/dl POC Glucose 221 H 186 H (70-99) mg/dl Lactate (0.4-2.0) mmol/L Calcium (8.6-10.3) mg/dl Phosphorus (2.5-4.9) mg/dl Magnesium (1.7-2.4) mg/dl Total Bilirubin (0.2-1.0) mg/dl AST (13-39) U/L ALT (7-52) U/L Alkaline Phosphatase (34-104) U/L Total Creatine Kinase (26-192) U/L C-Reactive Protein (0-0.5) mg/dl Total Protein (6.0-8.3) gm/dl Albumin (3.4-5.0) gm/dl Globulin (2.5-4.0) gm/dl Albumin/Globulin Ratio (0.9-2) Triglycerides (0-150) mg/dl Procalcitonin (0-0.5) ng/ml Urine Color Urine Appearance (Clear) Urine pH (4.5-7.5) Ur Specific [place] (1.000-1.030) Urine Protein (Negative) Urine Glucose (UA) (Negative) Urine Ketones (Negative) Urine Blood (Negative) Urine Nitrite (Negative) Urine Bilirubin (Negative) Urine Urobilinogen (Negative) Ur Leukocyte Esterase (Negative) Urine WBC (Auto) (0-5) /hpf Urine RBC (Auto) (0-4) /hpf U Hyaline Cast (Auto) (0-5) /lpf U Epithel Cells (Auto) (0-5) /lpf Urine Bacteria (Auto) (Negative) Ur Renal Epithelial Cell (0-5) /lpf Amorphous Sediment (None Prsent) Urine Yeast Urine Osmolality (500-800) mOsm/kg Ur Random Creatinine mg/dl Ur Random Sodium mmol/L Stool Occult Bld Scrn (Negative) A. phagocytophilum DNA (Negative) Hep Bs Antigen (NON-REACTIVE) Hep Bs Ag Confirmation Hep Bs Antibody, Quant (> OR = 10) mIU/mL Hep B Core IgM Ab (NON-REACTIVE) Blood Type Antibody Screen Crossmatch 02/25/23 02/25/23 02/25/23 Range/Units 16:54 20:25 20:49 WBC 24.38 H (4.8-10.8) K/ul RBC 2.68 L (4.20-5.40) M/uL Hgb 7.5 L (12.0-16.0) g/dl Hct 22.4 L (37.0-47.0) % MCV 83.6 (80.0-100.0) fL MCH 28.0 (25.0-34.0) pg MCHC 33.5 (32.0-36.0) g/dL RDW Std Deviation 53.9 H (36.4-46.3) fL RDW Coeff of Mari 17.5 H (11.5-14.5) % Plt Count 579 H (130-400) K/uL MPV 11.1 (9.4-12.4) fL Immature Gran % (Auto) % Neut % (Auto) % Lymph % (Auto) % Stearns % (Auto) % Eos % (Auto) % Baso % (Auto) % Neut # (Auto) (1.40-6.50) K/uL Lymph # (Auto) (1.20-3.40) K/uL Ste[place]s # (Auto) (0.11-0.59) K/uL Eos # (Auto) (0.00-0.50) K/uL Baso # (Auto) (0.00-0.20) K/uL Immature Gran # (Auto) (0.01-0.20) K/uL Absolute Nucleated RBC 0.06 (0.00-0.12) K/uL Nucleated RBC % (auto) 0.2 % Neutrophils % (Manual) 72 % Lymphocytes % (Manual) 7 % Monocytes % (Manual) 9 % Eosinophils % (Manual) 4 % Metamyelocytes % (Man) 4 % Myelocytes % (Man) 4 % Plasma Cell % (Manual) % Neutrophils # (Manual) 17.55 H (1.40-6.50) K/uL Total Absolute Neuts 17.55 H (1.4-6.5) K/uL Lymphocytes # (Manual) 1.71 (1.2-3.4) K/uL Total Abs Lymphocytes 1.71 (1.2-3.4) K/uL Monocytes # (Manual) 2.19 H (0.11-0.59) K/uL Eosinophils # (Manual) 0.98 H (0-0.50) K/uL Metamyelocytes # (Man) 0.98 H (0-0) K/uL Myelocytes # (Manual) 0.98 H (0-0) K/uL Plasma Cell # (Manual) (0-0) K/uL Hypersegmented Neuts Blood Smear Review Toxic Vacuolation Hypochromasia Polychromasia 1+ Spherocytes Echinocytes 1+ PT (9.0-12.0) Seconds INR (0.9-1.1) APTT (21.0-31.0) Seconds PTT Ratio Sodium 136 (136-145) mmol/L Potassium 3.9 (3.5-5.1) mmol/L Chloride 98 (98-107) mmol/L Carbon Dioxide 24 (21-32) mmol/L Anion Gap 14 H (3-11) BUN 109 H (6-23) mg/dl Creatinine 4.91 H* (0.6-1.2) mg/dl Est Cr Clr Drug Dosing 8.1 ml/min Est GFR ( Amer) 8.5 ml/min Est GFR (Non-Af Amer) 7.3 ml/min BUN/Creatinine Ratio 22.2 H (10-20) Glucose 140 H (70-99(Fasting)) mg/dl POC Glucose 114 H 178 H (70-99) mg/dl Lactate 1.1 (0.4-2.0) mmol/L Calcium 9.0 (8.6-10.3) mg/dl Phosphorus (2.5-4.9) mg/dl Magnesium (1.7-2.4) mg/dl Total Bilirubin 0.6 (0.2-1.0) mg/dl AST 22 (13-39) U/L ALT 19 (7-52) U/L Alkaline Phosphatase 487 H (34-104) U/L Total Creatine Kinase (26-192) U/L C-Reactive Protein (0-0.5) mg/dl Total Protein 5.4 L (6.0-8.3) gm/dl Albumin 2.4 L (3.4-5.0) gm/dl Globulin 3.0 (2.5-4.0) gm/dl Albumin/Globulin Ratio 0.8 L (0.9-2) Triglycerides (0-150) mg/dl Procalcitonin (0-0.5) ng/ml Urine Color Urine Appearance (Clear) Urine pH (4.5-7.5) Ur Specific [place] (1.000-1.030) Urine Protein (Negative) Urine Glucose (UA) (Negative) Urine Ketones (Negative) Urine Blood (Negative) Urine Nitrite (Negative) Urine Bilirubin (Negative) Urine Urobilinogen (Negative) Ur Leukocyte Esterase (Negative) Urine WBC (Auto) (0-5) /hpf Urine RBC (Auto) (0-4) /hpf U Hyaline Cast (Auto) (0-5) /lpf U Epithel Cells (Auto) (0-5) /lpf Urine Bacteria (Auto) (Negative) Ur Renal Epithelial Cell (0-5) /lpf Amorphous Sediment (None Prsent) Urine Yeast Urine Osmolality (500-800) mOsm/kg Ur Random Creatinine mg/dl Ur Random Sodium mmol/L Stool Occult Bld Scrn (Negative) A. phagocytophilum DNA (Negative) Hep Bs Antigen (NON-REACTIVE) Hep Bs Ag Confirmation Hep Bs Antibody, Quant (> OR = 10) mIU/mL Hep B Core IgM Ab (NON-REACTIVE) Blood Type Antibody Screen Crossmatch 02/25/23 02/26/23 02/26/23 Range/Units 23:46 04:03 05:59 WBC 23.39 H (4.8-10.8) K/ul RBC 2.35 L (4.20-5.40) M/uL Hgb 6.4 L* (12.0-16.0) g/dl Hct 19.3 L* (37.0-47.0) % MCV 82.1 (80.0-100.0) fL MCH 27.2 (25.0-34.0) pg MCHC 33.2 (32.0-36.0) g/dL RDW Std Deviation 52.0 H (36.4-46.3) fL RDW Coeff of Mari 17.7 H (11.5-14.5) % Plt Count 524 H (130-400) K/uL MPV 11.1 (9.4-12.4) fL Immature Gran % (Auto) 8.7 % Neut % (Auto) 78.2 % Lymph % (Auto) 5.8 % Ste[place] % (Auto) 5.6 % Eos % (Auto) 1.5 % Baso % (Auto) 0.2 % Neut # (Auto) 18.33 H (1.40-6.50) K/uL Lymph # (Auto) 1.35 (1.20-3.40) K/uL Stearns # (Auto) 1.30 H (0.11-0.59) K/uL Eos # (Auto) 0.34 (0.00-0.50) K/uL Baso # (Auto) 0.04 (0.00-0.20) K/uL Immature Gran # (Auto) 2.03 H (0.01-0.20) K/uL Absolute Nucleated RBC 0.09 (0.00-0.12) K/uL Nucleated RBC % (auto) 0.4 % Neutrophils % (Manual) % Lymphocytes % (Manual) % Monocytes % (Manual) % Eosinophils % (Manual) % Metamyelocytes % (Man) % Myelocytes % (Man) % Plasma Cell % (Manual) % Neutrophils # (Manual) (1.40-6.50) K/uL Total Absolute Neuts (1.4-6.5) K/uL Lymphocytes # (Manual) (1.2-3.4) K/uL Total Abs Lymphocytes (1.2-3.4) K/uL Monocytes # (Manual) (0.11-0.59) K/uL Eosinophils # (Manual) (0-0.50) K/uL Metamyelocytes # (Man) (0-0) K/uL Myelocytes # (Manual) (0-0) K/uL Plasma Cell # (Manual) (0-0) K/uL Hypersegmented Neuts Blood Smear Review Toxic Vacuolation Hypochromasia Polychromasia 1+ Spherocytes Echinocytes PT (9.0-12.0) Seconds INR (0.9-1.1) APTT (21.0-31.0) Seconds PTT Ratio Sodium 137 (136-145) mmol/L Potassium 3.8 (3.5-5.1) mmol/L Chloride 99 (98-107) mmol/L Carbon Dioxide 24 (21-32) mmol/L Anion Gap 14 H (3-11) BUN 116 H (6-23) mg/dl Creatinine 4.92 H* (0.6-1.2) mg/dl Est Cr Clr Drug Dosing 7.9 ml/min Est GFR ( Amer) 8.5 ml/min Est GFR (Non-Af Amer) 7.3 ml/min BUN/Creatinine Ratio 23.6 H (10-20) Glucose 149 H (70-99(Fasting)) mg/dl POC Glucose 180 H 173 H (70-99) mg/dl Lactate (0.4-2.0) mmol/L Calcium 8.8 (8.6-10.3) mg/dl Phosphorus 4.4 (2.5-4.9) mg/dl Magnesium 2.1 (1.7-2.4) mg/dl Total Bilirubin (0.2-1.0) mg/dl AST (13-39) U/L ALT (7-52) U/L Alkaline Phosphatase (34-104) U/L Total Creatine Kinase (26-192) U/L C-Reactive Protein (0-0.5) mg/dl Total Protein (6.0-8.3) gm/dl Albumin 2.3 L (3.4-5.0) gm/dl Globulin (2.5-4.0) gm/dl Albumin/Globulin Ratio (0.9-2) Triglycerides (0-150) mg/dl Procalcitonin (0-0.5) ng/ml Urine Color Urine Appearance (Clear) Urine pH (4.5-7.5) Ur Specific [place] (1.000-1.030) Urine Protein (Negative) Urine Glucose (UA) (Negative) Urine Ketones (Negative) Urine Blood (Negative) Urine Nitrite (Negative) Urine Bilirubin (Negative) Urine Urobilinogen (Negative) Ur Leukocyte Esterase (Negative) Urine WBC (Auto) (0-5) /hpf Urine RBC (Auto) (0-4) /hpf U Hyaline Cast (Auto) (0-5) /lpf U Epithel Cells (Auto) (0-5) /lpf Urine Bacteria (Auto) (Negative) Ur Renal Epithelial Cell (0-5) /lpf Amorphous Sediment (None Prsent) Urine Yeast Urine Osmolality (500-800) mOsm/kg Ur Random Creatinine mg/dl Ur Random Sodium mmol/L Stool Occult Bld Scrn (Negative) A. phagocytophilum DNA (Negative) Hep Bs Antigen (NON-REACTIVE) Hep Bs Ag Confirmation Hep Bs Antibody, Quant (> OR = 10) mIU/mL Hep B Core IgM Ab (NON-REACTIVE) Blood Type Antibody Screen Crossmatch 02/26/23 02/26/23 02/26/23 Range/Units 07:20 07:31 11:42 WBC (4.8-10.8) K/ul RBC (4.20-5.40) M/uL Hgb (12.0-16.0) g/dl Hct (37.0-47.0) % MCV (80.0-100.0) fL MCH (25.0-34.0) pg MCHC (32.0-36.0) g/dL RDW Std Deviation (36.4-46.3) fL RDW Coeff of Mari (11.5-14.5) % Plt Count (130-400) K/uL MPV (9.4-12.4) fL Immature Gran % (Auto) % Neut % (Auto) % Lymph % (Auto) % Stearns % (Auto) % Eos % (Auto) % Baso % (Auto) % Neut # (Auto) (1.40-6.50) K/uL Lymph # (Auto) (1.20-3.40) K/uL [place]s # (Auto) (0.11-0.59) K/uL Eos # (Auto) (0.00-0.50) K/uL Baso # (Auto) (0.00-0.20) K/uL Immature Gran # (Auto) (0.01-0.20) K/uL Absolute Nucleated RBC (0.00-0.12) K/uL Nucleated RBC % (auto) % Neutrophils % (Manual) % Lymphocytes % (Manual) % Monocytes % (Manual) % Eosinophils % (Manual) % Metamyelocytes % (Man) % Myelocytes % (Man) % Plasma Cell % (Manual) % Neutrophils # (Manual) (1.40-6.50) K/uL Total Absolute Neuts (1.4-6.5) K/uL Lymphocytes # (Manual) (1.2-3.4) K/uL Total Abs Lymphocytes (1.2-3.4) K/uL Monocytes # (Manual) (0.11-0.59) K/uL Eosinophils # (Manual) (0-0.50) K/uL Metamyelocytes # (Man) (0-0) K/uL Myelocytes # (Manual) (0-0) K/uL Plasma Cell # (Manual) (0-0) K/uL Hypersegmented Neuts Blood Smear Review Toxic Vacuolation Hypochromasia Polychromasia Spherocytes Echinocytes PT (9.0-12.0) Seconds INR (0.9-1.1) APTT (21.0-31.0) Seconds PTT Ratio Sodium (136-145) mmol/L Potassium (3.5-5.1) mmol/L Chloride (98-107) mmol/L Carbon Dioxide (21-32) mmol/L Anion Gap (3-11) BUN (6-23) mg/dl Creatinine (0.6-1.2) mg/dl Est Cr Clr Drug Dosing ml/min Est GFR ( Amer) ml/min Est GFR (Non-Af Amer) ml/min BUN/Creatinine Ratio (10-20) Glucose (70-99(Fasting)) mg/dl POC Glucose 176 H 168 H (70-99) mg/dl Lactate (0.4-2.0) mmol/L Calcium (8.6-10.3) mg/dl Phosphorus (2.5-4.9) mg/dl Magnesium (1.7-2.4) mg/dl Total Bilirubin (0.2-1.0) mg/dl AST (13-39) U/L ALT (7-52) U/L Alkaline Phosphatase (34-104) U/L Total Creatine Kinase (26-192) U/L C-Reactive Protein (0-0.5) mg/dl Total Protein (6.0-8.3) gm/dl Albumin (3.4-5.0) gm/dl Globulin (2.5-4.0) gm/dl Albumin/Globulin Ratio (0.9-2) Triglycerides (0-150) mg/dl Procalcitonin (0-0.5) ng/ml Urine Color Urine Appearance (Clear) Urine pH (4.5-7.5) Ur Specific [place] (1.000-1.030) Urine Protein (Negative) Urine Glucose (UA) (Negative) Urine Ketones (Negative) Urine Blood (Negative) Urine Nitrite (Negative) Urine Bilirubin (Negative) Urine Urobilinogen (Negative) Ur Leukocyte Esterase (Negative) Urine WBC (Auto) (0-5) /hpf Urine RBC (Auto) (0-4) /hpf U Hyaline Cast (Auto) (0-5) /lpf U Epithel Cells (Auto) (0-5) /lpf Urine Bacteria (Auto) (Negative) Ur Renal Epithelial Cell (0-5) /lpf Amorphous Sediment (None Prsent) Urine Yeast Urine Osmolality (500-800) mOsm/kg Ur Random Creatinine mg/dl Ur Random Sodium mmol/L Stool Occult Bld Scrn (Negative) A. phagocytophilum DNA (Negative) Hep Bs Antigen (NON-REACTIVE) Hep Bs Ag Confirmation Hep Bs Antibody, Quant (> OR = 10) mIU/mL Hep B Core IgM Ab (NON-REACTIVE) Blood Type O Positive Antibody Screen NEGATIVE Crossmatch See Detail 02/26/23 02/26/23 02/26/23 Range/Units 13:01 15:45 20:40 WBC (4.8-10.8) K/ul RBC (4.20-5.40) M/uL Hgb (12.0-16.0) g/dl Hct (37.0-47.0) % MCV (80.0-100.0) fL MCH (25.0-34.0) pg MCHC (32.0-36.0) g/dL RDW Std Deviation (36.4-46.3) fL RDW Coeff of Mari (11.5-14.5) % Plt Count (130-400) K/uL MPV (9.4-12.4) fL Immature Gran % (Auto) % Neut % (Auto) % Lymph % (Auto) % Stearns % (Auto) % Eos % (Auto) % Baso % (Auto) % Neut # (Auto) (1.40-6.50) K/uL Lymph # (Auto) (1.20-3.40) K/uL Ste[place]s # (Auto) (0.11-0.59) K/uL Eos # (Auto) (0.00-0.50) K/uL Baso # (Auto) (0.00-0.20) K/uL Immature Gran # (Auto) (0.01-0.20) K/uL Absolute Nucleated RBC (0.00-0.12) K/uL Nucleated RBC % (auto) % Neutrophils % (Manual) % Lymphocytes % (Manual) % Monocytes % (Manual) % Eosinophils % (Manual) % Metamyelocytes % (Man) % Myelocytes % (Man) % Plasma Cell % (Manual) % Neutrophils # (Manual) (1.40-6.50) K/uL Total Absolute Neuts (1.4-6.5) K/uL Lymphocytes # (Manual) (1.2-3.4) K/uL Total Abs Lymphocytes (1.2-3.4) K/uL Monocytes # (Manual) (0.11-0.59) K/uL Eosinophils # (Manual) (0-0.50) K/uL Metamyelocytes # (Man) (0-0) K/uL Myelocytes # (Manual) (0-0) K/uL Plasma Cell # (Manual) (0-0) K/uL Hypersegmented Neuts Blood Smear Review Toxic Vacuolation Hypochromasia Polychromasia Spherocytes Echinocytes PT (9.0-12.0) Seconds INR (0.9-1.1) APTT (21.0-31.0) Seconds PTT Ratio Sodium (136-145) mmol/L Potassium (3.5-5.1) mmol/L Chloride (98-107) mmol/L Carbon Dioxide (21-32) mmol/L Anion Gap (3-11) BUN (6-23) mg/dl Creatinine (0.6-1.2) mg/dl Est Cr Clr Drug Dosing ml/min Est GFR ( Amer) ml/min Est GFR (Non-Af Amer) ml/min BUN/Creatinine Ratio (10-20) Glucose (70-99(Fasting)) mg/dl POC Glucose 202 H 184 H 160 H (70-99) mg/dl Lactate (0.4-2.0) mmol/L Calcium (8.6-10.3) mg/dl Phosphorus (2.5-4.9) mg/dl Magnesium (1.7-2.4) mg/dl Total Bilirubin (0.2-1.0) mg/dl AST (13-39) U/L ALT (7-52) U/L Alkaline Phosphatase (34-104) U/L Total Creatine Kinase (26-192) U/L C-Reactive Protein (0-0.5) mg/dl Total Protein (6.0-8.3) gm/dl Albumin (3.4-5.0) gm/dl Globulin (2.5-4.0) gm/dl Albumin/Globulin Ratio (0.9-2) Triglycerides (0-150) mg/dl Procalcitonin (0-0.5) ng/ml Urine Color Urine Appearance (Clear) Urine pH (4.5-7.5) Ur Specific [place] (1.000-1.030) Urine Protein (Negative) Urine Glucose (UA) (Negative) Urine Ketones (Negative) Urine Blood (Negative) Urine Nitrite (Negative) Urine Bilirubin (Negative) Urine Urobilinogen (Negative) Ur Leukocyte Esterase (Negative) Urine WBC (Auto) (0-5) /hpf Urine RBC (Auto) (0-4) /hpf U Hyaline Cast (Auto) (0-5) /lpf U Epithel Cells (Auto) (0-5) /lpf Urine Bacteria (Auto) (Negative) Ur Renal Epithelial Cell (0-5) /lpf Amorphous Sediment (None Prsent) Urine Yeast Urine Osmolality (500-800) mOsm/kg Ur Random Creatinine mg/dl Ur Random Sodium mmol/L Stool Occult Bld Scrn (Negative) A. phagocytophilum DNA (Negative) Hep Bs Antigen (NON-REACTIVE) Hep Bs Ag Confirmation Hep Bs Antibody, Quant (> OR = 10) mIU/mL Hep B Core IgM Ab (NON-REACTIVE) Blood Type Antibody Screen Crossmatch 02/26/23 02/26/23 02/26/23 Range/Units 20:52 23:49 Unknown WBC (4.8-10.8) K/ul RBC (4.20-5.40) M/uL Hgb 8.3 L (12.0-16.0) g/dl Hct 24.8 L (37.0-47.0) % MCV (80.0-100.0) fL MCH (25.0-34.0) pg MCHC (32.0-36.0) g/dL RDW Std Deviation (36.4-46.3) fL RDW Coeff of Mari (11.5-14.5) % Plt Count (130-400) K/uL MPV (9.4-12.4) fL Immature Gran % (Auto) % Neut % (Auto) % Lymph % (Auto) % [place] % (Auto) % Eos % (Auto) % Baso % (Auto) % Neut # (Auto) (1.40-6.50) K/uL Lymph # (Auto) (1.20-3.40) K/uL [place] # (Auto) (0.11-0.59) K/uL Eos # (Auto) (0.00-0.50) K/uL Baso # (Auto) (0.00-0.20) K/uL Immature Gran # (Auto) (0.01-0.20) K/uL Absolute Nucleated RBC (0.00-0.12) K/uL Nucleated RBC % (auto) % Neutrophils % (Manual) % Lymphocytes % (Manual) % Monocytes % (Manual) % Eosinophils % (Manual) % Metamyelocytes % (Man) % Myelocytes % (Man) % Plasma Cell % (Manual) % Neutrophils # (Manual) (1.40-6.50) K/uL Total Absolute Neuts (1.4-6.5) K/uL Lymphocytes # (Manual) (1.2-3.4) K/uL Total Abs Lymphocytes (1.2-3.4) K/uL Monocytes # (Manual) (0.11-0.59) K/uL Eosinophils # (Manual) (0-0.50) K/uL Metamyelocytes # (Man) (0-0) K/uL Myelocytes # (Manual) (0-0) K/uL Plasma Cell # (Manual) (0-0) K/uL Hypersegmented Neuts Blood Smear Review Toxic Vacuolation Hypochromasia Polychromasia Spherocytes Echinocytes PT (9.0-12.0) Seconds INR (0.9-1.1) APTT (21.0-31.0) Seconds PTT Ratio Sodium (136-145) mmol/L Potassium (3.5-5.1) mmol/L Chloride (98-107) mmol/L Carbon Dioxide (21-32) mmol/L Anion Gap (3-11) BUN (6-23) mg/dl Creatinine (0.6-1.2) mg/dl Est Cr Clr Drug Dosing ml/min Est GFR ( Amer) ml/min Est GFR (Non-Af Amer) ml/min BUN/Creatinine Ratio (10-20) Glucose (70-99(Fasting)) mg/dl POC Glucose 170 H (70-99) mg/dl Lactate (0.4-2.0) mmol/L Calcium (8.6-10.3) mg/dl Phosphorus (2.5-4.9) mg/dl Magnesium (1.7-2.4) mg/dl Total Bilirubin (0.2-1.0) mg/dl AST (13-39) U/L ALT (7-52) U/L Alkaline Phosphatase (34-104) U/L Total Creatine Kinase (26-192) U/L C-Reactive Protein (0-0.5) mg/dl Total Protein (6.0-8.3) gm/dl Albumin (3.4-5.0) gm/dl Globulin (2.5-4.0) gm/dl Albumin/Globulin Ratio (0.9-2) Triglycerides (0-150) mg/dl Procalcitonin (0-0.5) ng/ml Urine Color Urine Appearance (Clear) Urine pH (4.5-7.5) Ur Specific [place] (1.000-1.030) Urine Protein (Negative) Urine Glucose (UA) (Negative) Urine Ketones (Negative) Urine Blood (Negative) Urine Nitrite (Negative) Urine Bilirubin (Negative) Urine Urobilinogen (Negative) Ur Leukocyte Esterase (Negative) Urine WBC (Auto) (0-5) /hpf Urine RBC (Auto) (0-4) /hpf U Hyaline Cast (Auto) (0-5) /lpf U Epithel Cells (Auto) (0-5) /lpf Urine Bacteria (Auto) (Negative) Ur Renal Epithelial Cell (0-5) /lpf Amorphous Sediment (None Prsent) Urine Yeast Urine Osmolality (500-800) mOsm/kg Ur Random Creatinine mg/dl Ur Random Sodium mmol/L Stool Occult Bld Scrn Positive A (Negative) A. phagocytophilum DNA (Negative) Hep Bs Antigen (NON-REACTIVE) Hep Bs Ag Confirmation Hep Bs Antibody, Quant (> OR = 10) mIU/mL Hep B Core IgM Ab (NON-REACTIVE) Blood Type Antibody Screen Crossmatch 02/27/23 02/27/23 02/27/23 Range/Units 03:37 07:53 07:53 WBC 24.36 H (4.8-10.8) K/ul RBC 2.87 L (4.20-5.40) M/uL Hgb 8.2 L (12.0-16.0) g/dl Hct 24.2 L (37.0-47.0) % MCV 84.3 (80.0-100.0) fL MCH 28.6 (25.0-34.0) pg MCHC 33.9 (32.0-36.0) g/dL RDW Std Deviation 49.8 H (36.4-46.3) fL RDW Coeff of Mari 16.3 H (11.5-14.5) % Plt Count 452 H (130-400) K/uL MPV 10.9 (9.4-12.4) fL Immature Gran % (Auto) 7.5 % Neut % (Auto) 80.0 % Lymph % (Auto) 5.5 % [place] % (Auto) 5.4 % Eos % (Auto) 1.4 % Baso % (Auto) 0.2 % Neut # (Auto) 19.46 H (1.40-6.50) K/uL Lymph # (Auto) 1.35 (1.20-3.40) K/uL [place] # (Auto) 1.32 H (0.11-0.59) K/uL Eos # (Auto) 0.35 (0.00-0.50) K/uL Baso # (Auto) 0.06 (0.00-0.20) K/uL Immature Gran # (Auto) 1.82 H (0.01-0.20) K/uL Absolute Nucleated RBC 0.02 (0.00-0.12) K/uL Nucleated RBC % (auto) 0.1 % Neutrophils % (Manual) % Lymphocytes % (Manual) % Monocytes % (Manual) % Eosinophils % (Manual) % Metamyelocytes % (Man) % Myelocytes % (Man) % Plasma Cell % (Manual) % Neutrophils # (Manual) (1.40-6.50) K/uL Total Absolute Neuts (1.4-6.5) K/uL Lymphocytes # (Manual) (1.2-3.4) K/uL Total Abs Lymphocytes (1.2-3.4) K/uL Monocytes # (Manual) (0.11-0.59) K/uL Eosinophils # (Manual) (0-0.50) K/uL Metamyelocytes # (Man) (0-0) K/uL Myelocytes # (Manual) (0-0) K/uL Plasma Cell # (Manual) (0-0) K/uL Hypersegmented Neuts Blood Smear Review Toxic Vacuolation Hypochromasia Polychromasia 1+ Spherocytes Echinocytes PT (9.0-12.0) Seconds INR (0.9-1.1) APTT (21.0-31.0) Seconds PTT Ratio Sodium 140 (136-145) mmol/L Potassium 3.7 (3.5-5.1) mmol/L Chloride 102 (98-107) mmol/L Carbon Dioxide 26 (21-32) mmol/L Anion Gap 12 H (3-11) BUN 99 H (6-23) mg/dl Creatinine 4.12 H D (0.6-1.2) mg/dl Est Cr Clr Drug Dosing 9.3 ml/min Est GFR ( Amer) 10.5 ml/min Est GFR (Non-Af Amer) 9.1 ml/min BUN/Creatinine Ratio 24.0 H (10-20) Glucose 91 (70-99(Fasting)) mg/dl POC Glucose 118 H (70-99) mg/dl Lactate (0.4-2.0) mmol/L Calcium 8.4 L (8.6-10.3) mg/dl Phosphorus 4.6 4.6 (2.5-4.9) mg/dl Magnesium 1.9 (1.7-2.4) mg/dl Total Bilirubin (0.2-1.0) mg/dl AST (13-39) U/L ALT (7-52) U/L Alkaline Phosphatase (34-104) U/L Total Creatine Kinase (26-192) U/L C-Reactive Protein (0-0.5) mg/dl Total Protein (6.0-8.3) gm/dl Albumin 2.2 L (3.4-5.0) gm/dl Globulin (2.5-4.0) gm/dl Albumin/Globulin Ratio (0.9-2) Triglycerides (0-150) mg/dl Procalcitonin (0-0.5) ng/ml Urine Color Urine Appearance (Clear) Urine pH (4.5-7.5) Ur Specific [place] (1.000-1.030) Urine Protein (Negative) Urine Glucose (UA) (Negative) Urine Ketones (Negative) Urine Blood (Negative) Urine Nitrite (Negative) Urine Bilirubin (Negative) Urine Urobilinogen (Negative) Ur Leukocyte Esterase (Negative) Urine WBC (Auto) (0-5) /hpf Urine RBC (Auto) (0-4) /hpf U Hyaline Cast (Auto) (0-5) /lpf U Epithel Cells (Auto) (0-5) /lpf Urine Bacteria (Auto) (Negative) Ur Renal Epithelial Cell (0-5) /lpf Amorphous Sediment (None Prsent) Urine Yeast Urine Osmolality (500-800) mOsm/kg Ur Random Creatinine mg/dl Ur Random Sodium mmol/L Stool Occult Bld Scrn (Negative) A. phagocytophilum DNA (Negative) Hep Bs Antigen (NON-REACTIVE) Hep Bs Ag Confirmation Hep Bs Antibody, Quant (> OR = 10) mIU/mL Hep B Core IgM Ab (NON-REACTIVE) Blood Type Antibody Screen Crossmatch 02/27/23 02/27/23 02/27/23 Range/Units 08:03 11:55 16:04 WBC (4.8-10.8) K/ul RBC (4.20-5.40) M/uL Hgb (12.0-16.0) g/dl Hct (37.0-47.0) % MCV (80.0-100.0) fL MCH (25.0-34.0) pg MCHC (32.0-36.0) g/dL RDW Std Deviation (36.4-46.3) fL RDW Coeff of Mari (11.5-14.5) % Plt Count (130-400) K/uL MPV (9.4-12.4) fL Immature Gran % (Auto) % Neut % (Auto) % Lymph % (Auto) % [place] % (Auto) % Eos % (Auto) % Baso % (Auto) % Neut # (Auto) (1.40-6.50) K/uL Lymph # (Auto) (1.20-3.40) K/uL [place] # (Auto) (0.11-0.59) K/uL Eos # (Auto) (0.00-0.50) K/uL Baso # (Auto) (0.00-0.20) K/uL Immature Gran # (Auto) (0.01-0.20) K/uL Absolute Nucleated RBC (0.00-0.12) K/uL Nucleated RBC % (auto) % Neutrophils % (Manual) % Lymphocytes % (Manual) % Monocytes % (Manual) % Eosinophils % (Manual) % Metamyelocytes % (Man) % Myelocytes % (Man) % Plasma Cell % (Manual) % Neutrophils # (Manual) (1.40-6.50) K/uL Total Absolute Neuts (1.4-6.5) K/uL Lymphocytes # (Manual) (1.2-3.4) K/uL Total Abs Lymphocytes (1.2-3.4) K/uL Monocytes # (Manual) (0.11-0.59) K/uL Eosinophils # (Manual) (0-0.50) K/uL Metamyelocytes # (Man) (0-0) K/uL Myelocytes # (Manual) (0-0) K/uL Plasma Cell # (Manual) (0-0) K/uL Hypersegmented Neuts Blood Smear Review Toxic Vacuolation Hypochromasia Polychromasia Spherocytes Echinocytes PT (9.0-12.0) Seconds INR (0.9-1.1) APTT (21.0-31.0) Seconds PTT Ratio Sodium (136-145) mmol/L Potassium (3.5-5.1) mmol/L Chloride (98-107) mmol/L Carbon Dioxide (21-32) mmol/L Anion Gap (3-11) BUN (6-23) mg/dl Creatinine (0.6-1.2) mg/dl Est Cr Clr Drug Dosing ml/min Est GFR ( Amer) ml/min Est GFR (Non-Af Amer) ml/min BUN/Creatinine Ratio (10-20) Glucose (70-99(Fasting)) mg/dl POC Glucose 93 106 H 139 H (70-99) mg/dl Lactate (0.4-2.0) mmol/L Calcium (8.6-10.3) mg/dl Phosphorus (2.5-4.9) mg/dl Magnesium (1.7-2.4) mg/dl Total Bilirubin (0.2-1.0) mg/dl AST (13-39) U/L ALT (7-52) U/L Alkaline Phosphatase (34-104) U/L Total Creatine Kinase (26-192) U/L C-Reactive Protein (0-0.5) mg/dl Total Protein (6.0-8.3) gm/dl Albumin (3.4-5.0) gm/dl Globulin (2.5-4.0) gm/dl Albumin/Globulin Ratio (0.9-2) Triglycerides (0-150) mg/dl Procalcitonin (0-0.5) ng/ml Urine Color Urine Appearance (Clear) Urine pH (4.5-7.5) Ur Specific [place] (1.000-1.030) Urine Protein (Negative) Urine Glucose (UA) (Negative) Urine Ketones (Negative) Urine Blood (Negative) Urine Nitrite (Negative) Urine Bilirubin (Negative) Urine Urobilinogen (Negative) Ur Leukocyte Esterase (Negative) Urine WBC (Auto) (0-5) /hpf Urine RBC (Auto) (0-4) /hpf U Hyaline Cast (Auto) (0-5) /lpf U Epithel Cells (Auto) (0-5) /lpf Urine Bacteria (Auto) (Negative) Ur Renal Epithelial Cell (0-5) /lpf Amorphous Sediment (None Prsent) Urine Yeast Urine Osmolality (500-800) mOsm/kg Ur Random Creatinine mg/dl Ur Random Sodium mmol/L Stool Occult Bld Scrn (Negative) A. phagocytophilum DNA (Negative) Hep Bs Antigen (NON-REACTIVE) Hep Bs Ag Confirmation Hep Bs Antibody, Quant (> OR = 10) mIU/mL Hep B Core IgM Ab (NON-REACTIVE) Blood Type Antibody Screen Crossmatch 02/27/23 02/27/23 02/28/23 Range/Units 19:24 23:52 03:48 WBC (4.8-10.8) K/ul RBC (4.20-5.40) M/uL Hgb (12.0-16.0) g/dl Hct (37.0-47.0) % MCV (80.0-100.0) fL MCH (25.0-34.0) pg MCHC (32.0-36.0) g/dL RDW Std Deviation (36.4-46.3) fL RDW Coeff of Mari (11.5-14.5) % Plt Count (130-400) K/uL MPV (9.4-12.4) fL Immature Gran % (Auto) % Neut % (Auto) % Lymph % (Auto) % Stearns % (Auto) % Eos % (Auto) % Baso % (Auto) % Neut # (Auto) (1.40-6.50) K/uL Lymph # (Auto) (1.20-3.40) K/uL Stearns # (Auto) (0.11-0.59) K/uL Eos # (Auto) (0.00-0.50) K/uL Baso # (Auto) (0.00-0.20) K/uL Immature Gran # (Auto) (0.01-0.20) K/uL Absolute Nucleated RBC (0.00-0.12) K/uL Nucleated RBC % (auto) % Neutrophils % (Manual) % Lymphocytes % (Manual) % Monocytes % (Manual) % Eosinophils % (Manual) % Metamyelocytes % (Man) % Myelocytes % (Man) % Plasma Cell % (Manual) % Neutrophils # (Manual) (1.40-6.50) K/uL Total Absolute Neuts (1.4-6.5) K/uL Lymphocytes # (Manual) (1.2-3.4) K/uL Total Abs Lymphocytes (1.2-3.4) K/uL Monocytes # (Manual) (0.11-0.59) K/uL Eosinophils # (Manual) (0-0.50) K/uL Metamyelocytes # (Man) (0-0) K/uL Myelocytes # (Manual) (0-0) K/uL Plasma Cell # (Manual) (0-0) K/uL Hypersegmented Neuts Blood Smear Review Toxic Vacuolation Hypochromasia Polychromasia Spherocytes Echinocytes PT (9.0-12.0) Seconds INR (0.9-1.1) APTT (21.0-31.0) Seconds PTT Ratio Sodium (136-145) mmol/L Potassium (3.5-5.1) mmol/L Chloride (98-107) mmol/L Carbon Dioxide (21-32) mmol/L Anion Gap (3-11) BUN (6-23) mg/dl Creatinine (0.6-1.2) mg/dl Est Cr Clr Drug Dosing ml/min Est GFR ( Amer) ml/min Est GFR (Non-Af Amer) ml/min BUN/Creatinine Ratio (10-20) Glucose (70-99(Fasting)) mg/dl POC Glucose 167 H 204 H 172 H (70-99) mg/dl Lactate (0.4-2.0) mmol/L Calcium (8.6-10.3) mg/dl Phosphorus (2.5-4.9) mg/dl Magnesium (1.7-2.4) mg/dl Total Bilirubin (0.2-1.0) mg/dl AST (13-39) U/L ALT (7-52) U/L Alkaline Phosphatase (34-104) U/L Total Creatine Kinase (26-192) U/L C-Reactive Protein (0-0.5) mg/dl Total Protein (6.0-8.3) gm/dl Albumin (3.4-5.0) gm/dl Globulin (2.5-4.0) gm/dl Albumin/Globulin Ratio (0.9-2) Triglycerides (0-150) mg/dl Procalcitonin (0-0.5) ng/ml Urine Color Urine Appearance (Clear) Urine pH (4.5-7.5) Ur Specific [place] (1.000-1.030) Urine Protein (Negative) Urine Glucose (UA) (Negative) Urine Ketones (Negative) Urine Blood (Negative) Urine Nitrite (Negative) Urine Bilirubin (Negative) Urine Urobilinogen (Negative) Ur Leukocyte Esterase (Negative) Urine WBC (Auto) (0-5) /hpf Urine RBC (Auto) (0-4) /hpf U Hyaline Cast (Auto) (0-5) /lpf U Epithel Cells (Auto) (0-5) /lpf Urine Bacteria (Auto) (Negative) Ur Renal Epithelial Cell (0-5) /lpf Amorphous Sediment (None Prsent) Urine Yeast Urine Osmolality (500-800) mOsm/kg Ur Random Creatinine mg/dl Ur Random Sodium mmol/L Stool Occult Bld Scrn (Negative) A. phagocytophilum DNA (Negative) Hep Bs Antigen (NON-REACTIVE) Hep Bs Ag Confirmation Hep Bs Antibody, Quant (> OR = 10) mIU/mL Hep B Core IgM Ab (NON-REACTIVE) Blood Type Antibody Screen Crossmatch 02/28/23 02/28/23 02/28/23 Range/Units 06:22 08:08 11:38 WBC 22.72 H (4.8-10.8) K/ul RBC 2.73 L (4.20-5.40) M/uL Hgb 7.7 L (12.0-16.0) g/dl Hct 23.3 L (37.0-47.0) % MCV 85.3 (80.0-100.0) fL MCH 28.2 (25.0-34.0) pg MCHC 33.0 (32.0-36.0) g/dL RDW Std Deviation 50.7 H (36.4-46.3) fL RDW Coeff of Mari 16.6 H (11.5-14.5) % Plt Count 514 H (130-400) K/uL MPV 10.9 (9.4-12.4) fL Immature Gran % (Auto) 6.9 % Neut % (Auto) 80.8 % Lymph % (Auto) 4.9 % Stearns % (Auto) 5.6 % Eos % (Auto) 1.6 % Baso % (Auto) 0.2 % Neut # (Auto) 18.37 H (1.40-6.50) K/uL Lymph # (Auto) 1.11 L (1.20-3.40) K/uL [place] # (Auto) 1.27 H (0.11-0.59) K/uL Eos # (Auto) 0.37 (0.00-0.50) K/uL Baso # (Auto) 0.04 (0.00-0.20) K/uL Immature Gran # (Auto) 1.56 H (0.01-0.20) K/uL Absolute Nucleated RBC 0.04 (0.00-0.12) K/uL Nucleated RBC % (auto) 0.2 % Neutrophils % (Manual) % Lymphocytes % (Manual) % Monocytes % (Manual) % Eosinophils % (Manual) % Metamyelocytes % (Man) % Myelocytes % (Man) % Plasma Cell % (Manual) % Neutrophils # (Manual) (1.40-6.50) K/uL Total Absolute Neuts (1.4-6.5) K/uL Lymphocytes # (Manual) (1.2-3.4) K/uL Total Abs Lymphocytes (1.2-3.4) K/uL Monocytes # (Manual) (0.11-0.59) K/uL Eosinophils # (Manual) (0-0.50) K/uL Metamyelocytes # (Man) (0-0) K/uL Myelocytes # (Manual) (0-0) K/uL Plasma Cell # (Manual) (0-0) K/uL Hypersegmented Neuts Blood Smear Review Toxic Vacuolation Hypochromasia Polychromasia 1+ Spherocytes Echinocytes PT (9.0-12.0) Seconds INR (0.9-1.1) APTT (21.0-31.0) Seconds PTT Ratio Sodium 139 (136-145) mmol/L Potassium 3.4 L (3.5-5.1) mmol/L Chloride 102 (98-107) mmol/L Carbon Dioxide 25 (21-32) mmol/L Anion Gap 12 H (3-11) BUN 86 H (6-23) mg/dl Creatinine 3.44 H D (0.6-1.2) mg/dl Est Cr Clr Drug Dosing 11.1 ml/min Est GFR ( Amer) 13.1 ml/min Est GFR (Non-Af Amer) 11.3 ml/min BUN/Creatinine Ratio 25.0 H (10-20) Glucose 115 H (70-99(Fasting)) mg/dl POC Glucose 131 H 163 H (70-99) mg/dl Lactate (0.4-2.0) mmol/L Calcium 8.5 L (8.6-10.3) mg/dl Phosphorus 3.9 (2.5-4.9) mg/dl Magnesium 1.7 (1.7-2.4) mg/dl Total Bilirubin (0.2-1.0) mg/dl AST (13-39) U/L ALT (7-52) U/L Alkaline Phosphatase (34-104) U/L Total Creatine Kinase (26-192) U/L C-Reactive Protein (0-0.5) mg/dl Total Protein (6.0-8.3) gm/dl Albumin 2.3 L (3.4-5.0) gm/dl Globulin (2.5-4.0) gm/dl Albumin/Globulin Ratio (0.9-2) Triglycerides (0-150) mg/dl Procalcitonin (0-0.5) ng/ml Urine Color Urine Appearance (Clear) Urine pH (4.5-7.5) Ur Specific [place] (1.000-1.030) Urine Protein (Negative) Urine Glucose (UA) (Negative) Urine Ketones (Negative) Urine Blood (Negative) Urine Nitrite (Negative) Urine Bilirubin (Negative) Urine Urobilinogen (Negative) Ur Leukocyte Esterase (Negative) Urine WBC (Auto) (0-5) /hpf Urine RBC (Auto) (0-4) /hpf U Hyaline Cast (Auto) (0-5) /lpf U Epithel Cells (Auto) (0-5) /lpf Urine Bacteria (Auto) (Negative) Ur Renal Epithelial Cell (0-5) /lpf Amorphous Sediment (None Prsent) Urine Yeast Urine Osmolality (500-800) mOsm/kg Ur Random Creatinine mg/dl Ur Random Sodium mmol/L Stool Occult Bld Scrn (Negative) A. phagocytophilum DNA (Negative) Hep Bs Antigen (NON-REACTIVE) Hep Bs Ag Confirmation Hep Bs Antibody, Quant (> OR = 10) mIU/mL Hep B Core IgM Ab (NON-REACTIVE) Blood Type Antibody Screen Crossmatch 02/28/23 02/28/23 03/01/23 Range/Units 16:32 19:56 00:09 WBC (4.8-10.8) K/ul RBC (4.20-5.40) M/uL Hgb (12.0-16.0) g/dl Hct (37.0-47.0) % MCV (80.0-100.0) fL MCH (25.0-34.0) pg MCHC (32.0-36.0) g/dL RDW Std Deviation (36.4-46.3) fL RDW Coeff of Mari (11.5-14.5) % Plt Count (130-400) K/uL MPV (9.4-12.4) fL Immature Gran % (Auto) % Neut % (Auto) % Lymph % (Auto) % Stearns % (Auto) % Eos % (Auto) % Baso % (Auto) % Neut # (Auto) (1.40-6.50) K/uL Lymph # (Auto) (1.20-3.40) K/uL Stearns # (Auto) (0.11-0.59) K/uL Eos # (Auto) (0.00-0.50) K/uL Baso # (Auto) (0.00-0.20) K/uL Immature Gran # (Auto) (0.01-0.20) K/uL Absolute Nucleated RBC (0.00-0.12) K/uL Nucleated RBC % (auto) % Neutrophils % (Manual) % Lymphocytes % (Manual) % Monocytes % (Manual) % Eosinophils % (Manual) % Metamyelocytes % (Man) % Myelocytes % (Man) % Plasma Cell % (Manual) % Neutrophils # (Manual) (1.40-6.50) K/uL Total Absolute Neuts (1.4-6.5) K/uL Lymphocytes # (Manual) (1.2-3.4) K/uL Total Abs Lymphocytes (1.2-3.4) K/uL Monocytes # (Manual) (0.11-0.59) K/uL Eosinophils # (Manual) (0-0.50) K/uL Metamyelocytes # (Man) (0-0) K/uL Myelocytes # (Manual) (0-0) K/uL Plasma Cell # (Manual) (0-0) K/uL Hypersegmented Neuts Blood Smear Review Toxic Vacuolation Hypochromasia Polychromasia Spherocytes Echinocytes PT (9.0-12.0) Seconds INR (0.9-1.1) APTT (21.0-31.0) Seconds PTT Ratio Sodium (136-145) mmol/L Potassium (3.5-5.1) mmol/L Chloride (98-107) mmol/L Carbon Dioxide (21-32) mmol/L Anion Gap (3-11) BUN (6-23) mg/dl Creatinine (0.6-1.2) mg/dl Est Cr Clr Drug Dosing ml/min Est GFR ( Amer) ml/min Est GFR (Non-Af Amer) ml/min BUN/Creatinine Ratio (10-20) Glucose (70-99(Fasting)) mg/dl POC Glucose 167 H 159 H 138 H (70-99) mg/dl Lactate (0.4-2.0) mmol/L Calcium (8.6-10.3) mg/dl Phosphorus (2.5-4.9) mg/dl Magnesium (1.7-2.4) mg/dl Total Bilirubin (0.2-1.0) mg/dl AST (13-39) U/L ALT (7-52) U/L Alkaline Phosphatase (34-104) U/L Total Creatine Kinase (26-192) U/L C-Reactive Protein (0-0.5) mg/dl Total Protein (6.0-8.3) gm/dl Albumin (3.4-5.0) gm/dl Globulin (2.5-4.0) gm/dl Albumin/Globulin Ratio (0.9-2) Triglycerides (0-150) mg/dl Procalcitonin (0-0.5) ng/ml Urine Color Urine Appearance (Clear) Urine pH (4.5-7.5) Ur Specific [place] (1.000-1.030) Urine Protein (Negative) Urine Glucose (UA) (Negative) Urine Ketones (Negative) Urine Blood (Negative) Urine Nitrite (Negative) Urine Bilirubin (Negative) Urine Urobilinogen (Negative) Ur Leukocyte Esterase (Negative) Urine WBC (Auto) (0-5) /hpf Urine RBC (Auto) (0-4) /hpf U Hyaline Cast (Auto) (0-5) /lpf U Epithel Cells (Auto) (0-5) /lpf Urine Bacteria (Auto) (Negative) Ur Renal Epithelial Cell (0-5) /lpf Amorphous Sediment (None Prsent) Urine Yeast Urine Osmolality (500-800) mOsm/kg Ur Random Creatinine mg/dl Ur Random Sodium mmol/L Stool Occult Bld Scrn (Negative) A. phagocytophilum DNA (Negative) Hep Bs Antigen (NON-REACTIVE) Hep Bs Ag Confirmation Hep Bs Antibody, Quant (> OR = 10) mIU/mL Hep B Core IgM Ab (NON-REACTIVE) Blood Type Antibody Screen Crossmatch 03/01/23 03/01/23 03/01/23 Range/Units 04:06 07:39 07:43 WBC 16.34 H (4.8-10.8) K/ul RBC 2.69 L (4.20-5.40) M/uL Hgb 7.5 L (12.0-16.0) g/dl Hct 23.2 L (37.0-47.0) % MCV 86.2 (80.0-100.0) fL MCH 27.9 (25.0-34.0) pg MCHC 32.3 (32.0-36.0) g/dL RDW Std Deviation 52.0 H (36.4-46.3) fL RDW Coeff of Mari 16.8 H (11.5-14.5) % Plt Count 467 H (130-400) K/uL MPV 11.1 (9.4-12.4) fL Immature Gran % (Auto) 5.2 % Neut % (Auto) 82.5 % Lymph % (Auto) 5.3 % Stearns % (Auto) 5.8 % Eos % (Auto) 1.0 % Baso % (Auto) 0.2 % Neut # (Auto) 13.50 H (1.40-6.50) K/uL Lymph # (Auto) 0.86 L (1.20-3.40) K/uL Stearns # (Auto) 0.94 H (0.11-0.59) K/uL Eos # (Auto) 0.16 (0.00-0.50) K/uL Baso # (Auto) 0.03 (0.00-0.20) K/uL Immature Gran # (Auto) 0.85 H (0.01-0.20) K/uL Absolute Nucleated RBC 0.02 (0.00-0.12) K/uL Nucleated RBC % (auto) 0.1 % Neutrophils % (Manual) % Lymphocytes % (Manual) % Monocytes % (Manual) % Eosinophils % (Manual) % Metamyelocytes % (Man) % Myelocytes % (Man) % Plasma Cell % (Manual) % Neutrophils # (Manual) (1.40-6.50) K/uL Total Absolute Neuts (1.4-6.5) K/uL Lymphocytes # (Manual) (1.2-3.4) K/uL Total Abs Lymphocytes (1.2-3.4) K/uL Monocytes # (Manual) (0.11-0.59) K/uL Eosinophils # (Manual) (0-0.50) K/uL Metamyelocytes # (Man) (0-0) K/uL Myelocytes # (Manual) (0-0) K/uL Plasma Cell # (Manual) (0-0) K/uL Hypersegmented Neuts Blood Smear Review Toxic Vacuolation Hypochromasia Polychromasia 1+ Spherocytes 1+ Echinocytes PT (9.0-12.0) Seconds INR (0.9-1.1) APTT (21.0-31.0) Seconds PTT Ratio Sodium 141 (136-145) mmol/L Potassium 3.8 (3.5-5.1) mmol/L Chloride 105 (98-107) mmol/L Carbon Dioxide 24 (21-32) mmol/L Anion Gap 12 H (3-11) BUN 118 H D (6-23) mg/dl Creatinine 3.68 H (0.6-1.2) mg/dl Est Cr Clr Drug Dosing 10.6 ml/min Est GFR ( Amer) 12.1 ml/min Est GFR (Non-Af Amer) 10.4 ml/min BUN/Creatinine Ratio 32.1 H (10-20) Glucose 166 H (70-99(Fasting)) mg/dl POC Glucose 164 H 176 H (70-99) mg/dl Lactate (0.4-2.0) mmol/L Calcium 8.6 (8.6-10.3) mg/dl Phosphorus 4.4 (2.5-4.9) mg/dl Magnesium 1.6 L (1.7-2.4) mg/dl Total Bilirubin (0.2-1.0) mg/dl AST (13-39) U/L ALT (7-52) U/L Alkaline Phosphatase (34-104) U/L Total Creatine Kinase (26-192) U/L C-Reactive Protein (0-0.5) mg/dl Total Protein (6.0-8.3) gm/dl Albumin (3.4-5.0) gm/dl Globulin (2.5-4.0) gm/dl Albumin/Globulin Ratio (0.9-2) Triglycerides 140 (0-150) mg/dl Procalcitonin (0-0.5) ng/ml Urine Color Urine Appearance (Clear) Urine pH (4.5-7.5) Ur Specific [place] (1.000-1.030) Urine Protein (Negative) Urine Glucose (UA) (Negative) Urine Ketones (Negative) Urine Blood (Negative) Urine Nitrite (Negative) Urine Bilirubin (Negative) Urine Urobilinogen (Negative) Ur Leukocyte Esterase (Negative) Urine WBC (Auto) (0-5) /hpf Urine RBC (Auto) (0-4) /hpf U Hyaline Cast (Auto) (0-5) /lpf U Epithel Cells (Auto) (0-5) /lpf Urine Bacteria (Auto) (Negative) Ur Renal Epithelial Cell (0-5) /lpf Amorphous Sediment (None Prsent) Urine Yeast Urine Osmolality (500-800) mOsm/kg Ur Random Creatinine mg/dl Ur Random Sodium mmol/L Stool Occult Bld Scrn (Negative) A. phagocytophilum DNA (Negative) Hep Bs Antigen (NON-REACTIVE) Hep Bs Ag Confirmation Hep Bs Antibody, Quant (> OR = 10) mIU/mL Hep B Core IgM Ab (NON-REACTIVE) Blood Type Antibody Screen Crossmatch 03/01/23 03/01/23 Range/Units 11:44 16:40 WBC (4.8-10.8) K/ul RBC (4.20-5.40) M/uL Hgb (12.0-16.0) g/dl Hct (37.0-47.0) % MCV (80.0-100.0) fL MCH (25.0-34.0) pg MCHC (32.0-36.0) g/dL RDW Std Deviation (36.4-46.3) fL RDW Coeff of Mari (11.5-14.5) % Plt Count (130-400) K/uL MPV (9.4-12.4) fL Immature Gran % (Auto) % Neut % (Auto) % Lymph % (Auto) % [place]arn[place] % (Auto) % Eos % (Auto) % Baso % (Auto) % Neut # (Auto) (1.40-6.50) K/uL Lymph # (Auto) (1.20-3.40) K/uL Ste[place]s # (Auto) (0.11-0.59) K/uL Eos # (Auto) (0.00-0.50) K/uL Baso # (Auto) (0.00-0.20) K/uL Immature Gran # (Auto) (0.01-0.20) K/uL Absolute Nucleated RBC (0.00-0.12) K/uL Nucleated RBC % (auto) % Neutrophils % (Manual) % Lymphocytes % (Manual) % Monocytes % (Manual) % Eosinophils % (Manual) % Metamyelocytes % (Man) % Myelocytes % (Man) % Plasma Cell % (Manual) % Neutrophils # (Manual) (1.40-6.50) K/uL Total Absolute Neuts (1.4-6.5) K/uL Lymphocytes # (Manual) (1.2-3.4) K/uL Total Abs Lymphocytes (1.2-3.4) K/uL Monocytes # (Manual) (0.11-0.59) K/uL Eosinophils # (Manual) (0-0.50) K/uL Metamyelocytes # (Man) (0-0) K/uL Myelocytes # (Manual) (0-0) K/uL Plasma Cell # (Manual) (0-0) K/uL Hypersegmented Neuts Blood Smear Review Toxic Vacuolation Hypochromasia Polychromasia Spherocytes Echinocytes PT (9.0-12.0) Seconds INR (0.9-1.1) APTT (21.0-31.0) Seconds PTT Ratio Sodium (136-145) mmol/L Potassium (3.5-5.1) mmol/L Chloride (98-107) mmol/L Carbon Dioxide (21-32) mmol/L Anion Gap (3-11) BUN (6-23) mg/dl Creatinine (0.6-1.2) mg/dl Est Cr Clr Drug Dosing ml/min Est GFR ( Amer) ml/min Est GFR (Non-Af Amer) ml/min BUN/Creatinine Ratio (10-20) Glucose (70-99(Fasting)) mg/dl POC Glucose 174 H 125 H (70-99) mg/dl Lactate (0.4-2.0) mmol/L Calcium (8.6-10.3) mg/dl Phosphorus (2.5-4.9) mg/dl Magnesium (1.7-2.4) mg/dl Total Bilirubin (0.2-1.0) mg/dl AST (13-39) U/L ALT (7-52) U/L Alkaline Phosphatase (34-104) U/L Total Creatine Kinase (26-192) U/L C-Reactive Protein (0-0.5) mg/dl Total Protein (6.0-8.3) gm/dl Albumin (3.4-5.0) gm/dl Globulin (2.5-4.0) gm/dl Albumin/Globulin Ratio (0.9-2) Triglycerides (0-150) mg/dl Procalcitonin (0-0.5) ng/ml Urine Color Urine Appearance (Clear) Urine pH (4.5-7.5) Ur Specific [place] (1.000-1.030) Urine Protein (Negative) Urine Glucose (UA) (Negative) Urine Ketones (Negative) Urine Blood (Negative) Urine Nitrite (Negative) Urine Bilirubin (Negative) Urine Urobilinogen (Negative) Ur Leukocyte Esterase (Negative) Urine WBC (Auto) (0-5) /hpf Urine RBC (Auto) (0-4) /hpf U Hyaline Cast (Auto) (0-5) /lpf U Epithel Cells (Auto) (0-5) /lpf Urine Bacteria (Auto) (Negative) Ur Renal Epithelial Cell (0-5) /lpf Amorphous Sediment (None Prsent) Urine Yeast Urine Osmolality (500-800) mOsm/kg Ur Random Creatinine mg/dl Ur Random Sodium mmol/L Stool Occult Bld Scrn (Negative) A. phagocytophilum DNA (Negative) Hep Bs Antigen (NON-REACTIVE) Hep Bs Ag Confirmation Hep Bs Antibody, Quant (> OR = 10) mIU/mL Hep B Core IgM Ab (NON-REACTIVE) Blood Type Antibody Screen Crossmatch
[2023-03-01] MEDS: VORTIOXETINE HYDROBROMIDE 10 MG PO SCH (21:15)
[2023-03-01] MEDS: DONEPEZIL HCL 5 MG TAB PO SCH (21:15)
[2023-03-01] MEDS: QUEtiapine FUMARATE 25 MG TABLET PO SCH (21:15)
[2023-03-02] MEDS: INSULIN ASPART PER UNIT CHARGE SC SCH ×6 (00:14→19:47)
[2023-03-02 06:23] LABS: Basophils # (auto) 0.03 K/uL (0.00-0.20); Basophils % (auto) 0.2 %; Eosinophils # (auto) 0.18 K/uL (0.00-0.50); Eosinophils % (auto) 1.2 %; Hematocrit (blood only) 21.2 % (37.0-47.0); Immature Granulocytes # (auto) 0.65 K/uL (0.01-0.20); Immature Granulocytes % (auto) 4.5 %; Lymphocytes # (auto) 1.02 K/uL (1.20-3.40); Mean Corpuscular Hemoglobin 28.2 pg (25.0-34.0); Mean Corpuscular Volume 85.5 fL (80.0-100.0); Mean Platelet Volume 10.8 fL (9.4-12.4); Monocytes # (auto) 0.96 K/uL (0.11-0.59); Monocytes % (auto) 6.6 %; Neutrophils # (auto) 11.68 K/uL (1.40-6.50); Neutrophils % (auto) 80.5 %; Platelet Count 463 K/uL (130-400); RDW Coefficient of Variation 16.6 % (11.5-14.5); RDW Standard Deviation 50.8 fL (36.4-46.3); Red Blood Count 2.48 M/uL (4.20-5.40); White Blood Count 14.52 K/ul (4.8-10.8)
--- NOTE | 2023-03-02 07:03 | Hospitalist Progress Note ---
Date of Service March 02, 2023 Assessment & Plan (1) Elevated blood pressure reading: Plan: Pt is an 87 y/o female with PMH of DM, colon cancer, TIA (2021), dementia, chronic low back pain, CKD, and HLD presenting to the hospital for right hemicolectomy. Initial surgery 02/06. Returned to the OR 02/19 for ischemic bowel resection and ileostomy creation. #Severe Sepsis with VRE and ESBL #Leukocytosis -Patient with clinical deterioration and severe sepsis starting 02/16 secondary to bowel leak. -Patient now s/p ischemic bowel resection with ileostomy creation 02/19. Peritoneal fluid growing VRE E. faecium and ESBL. -Blood cultures NGTD. Antibiotics: Ceftriaxone started 02/16 - 02/17 Switched to Zosyn 02/17 Added doxycycline 02/17 for anaplasmosis coverage, stop 03/03 Added daptomycin 02/22 for VRE Switched Zosyn to ertapenem 02/23 Switched ertapenem to meropenem 02/24 due to hypoalbuminemia Plan for 10-14 day coarse post-op. #ARCELIA on CKD IV #ATN -Baseline Cr ~ 1.6-1.7. -Has had a significant bump in creatinine. Likely intrinsic kidney injury most likely acute tubular necrosis as FeNa 1.7%. -Temporary dialysis line failed to allow for repetitive bouts of HD. Had tunneled dialysis catheter placement 02/26. -Ongoing [employer] with interval improvement in creatinine. - Creatine 3.65 03/02 -Nephrology continues to follow; last session of HD on 02/27 #Anemia #Coagulability #Bleeding #Heme Positive Stool -Patient with some degree of GI bleed as hemoglobin continues to drop intermittently. Not a candidate for scope at this time. -Started on pantoprazole BID. -Patient with several blood transfusions this admission - last 2U 02/26. Total of 6 units pRBC this admission -Patient is on heparin due to VTE risk. -Hemoglobin this morning 7; plan to repeat 1300 #Elevated BP -Patient with elevated blood pressure most likely secondary to recent surgery and pain. -Was initially started on amlodipine 5 mg during this admission. -We will hold for now due to risk of becoming hypotensive and high risk of falls. #A fib with RVR -Patient without a history of atrial fibrillation. -02/20 developed a fib with RVR. Responds well to Lopressor 5 mg IV. Lopressor for HR > 120 if BP can tolerate. -Heparin SQ BID for VTE ppx. #Parental Nutrition -Pharmacy/Dietary on board. TPN through central access. -Ostomy has begun functioning. 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 -Plan for 14-day course of doxycycline #Dementia -Continue Seroquel 12.5 mg and donepezil 5 mg QHS #Insulin Dependent Diabetes Mellitus -SSI while hospitalized. Resume home dosing on discharge #Depression -Continue home vortioxetine #OAB -Continue home oxybutynin #HLD -Continue statin therapy Code Status: Patient does have a living will stating DNR/DNI etc. This does not currently apply as patient presented for elective procedure. Full code in the setting of complications from recent procedure. Lines: PIV x1, tunneled dialysis catheter, Vera Diet: ostomy functioning, full DVT ppx: heparin BID Dispo: PCU/Tele, will need rehab Family Updated: 02/25 (2) Chronic kidney disease, stage IV (severe): (3) Anastomotic leak of intestine: (4) Atrial fibrillation with rapid ventricular response: (5) On parenteral nutrition: Admission and Anticipated Discharge Date Admission Date: February 06, 2023 Supervising Physician Co-Signing Physician Notes I personally examined the patient and verified all kinsey points of history and exam, discussed case, and agree with decision making with Dr Gr pt resting comfortably allowed to rest. vitals noted nad breathing unlabored no accessory muscles good effort skin no rashes no pallor or icterus. labs and diagnostics noted Severe sepsis sec to Anastomotic leak - ESBL and VRE in peritoneal fluid - continue IV dapto/meropenem (02/24 start). WBC down to 12k. Anemia - s/p total 4PRBC now. Hgb 6.2 again -> no active bleeding overtly identified, certainly nothing evident that would require specific intervention. does require transfusion again, however Heme positive stool - no concern of active bleeding. see above. continue PPI. ARCELIA - UO improvign some, HD not very successful. since volume less worrisome - hopefully can start to need less HD Malnutrition - continue TPN. diet started per surgery Swallowing dysfunction due to prolonged NPO status - speech Rx, diet per surgery Vera/tunnel cath/ostomy Heparin SQ for DVT proph Subjective Pt seen at bedside. States that she just finished breakfast. Doing well without complaint. Review of Systems Review of Systems: As per above Physical Exam Physical Exam: Constitutional: well-appearing, no acute distress HEENT: NCAT, no conjunctival injection CV: regular rhythm, no murmur appreciated, extremities well-perfused, no LE edema Resp: CTABL, no wheezes/rales/rhonchi appreciated, no increased work of breathing GI: soft, nondistended, nontender MSK: no gross deformities appreciated Skin: warm, dry, no rash appreciated Neuro: alert, oriented, no focal neurologic deficit appreciated Results & Data Results & Data Vital Signs (Past 12 Hours) Vital Signs Temp Pulse Pulse Resp BP Pulse Ox O2 Del Method 03/02/23 03:00 36.8 C 75 16 171/66 H 99 Room Air 03/02/23 00:24 74 03/01/23 23:01 37 C 76 20 132/54 L Room Air 03/01/23 23:01 Room Air 03/01/23 20:11 36.7 C 79 18 159/74 H 97 Room Air Resident Activity Tracking Resident Involvement: Resident Care Provided Care Provided: Adult Hospital Medicine
[2023-03-02 07:13] LABS: Polychromasia 1+
[2023-03-02 09:03] LABS: BUN Creatinine Ratio 38.4 (10-20); Creatinine Clr Calc Pharmacy 10.9 ml/min; Est GFR (African American) 12.2 ml/min; Est GFR (Non-African American) 10.5 ml/min; Magnesium 2.1 mg/dl (1.7-2.4); Potassium 3.8 mmol/L (3.5-5.1)
[2023-03-02] MEDS: LANTUS PER UNIT CHARGE SC SCH (09:05)
[2023-03-02] MEDS: PANTOprazole 40 MG in SYRINGE 0 ML IV SCH ×2 (09:06→21:29)
--- NOTE | 2023-03-02 09:12 | Surgery Progress Note ---
Date of Service March 02, 2023 Assessment & Plan (1) H/O right hemicolectomy: Plan: For some reason the order states that I ordered diet yesterday which I did not. Nonetheless she appears to be tolerating it. I will reach out to speech and swallowing and see how they think we should proceed. Certainly she could use the nutrition. Continue TPN for now. Apparently there were some issues with the hemodialysis catheter. Waiting nephrology to reevaluate although I am not sure what more I could offer in the way of troubleshooting. We will request physical therapy consult and evaluation as well. I am quite pleased with her mental status this morning (2) On parenteral nutrition: (3) Chronic kidney disease, stage III (moderate): Admission and Anticipated Discharge Date Admission Date: February 06, 2023 Subjective Patient seen. Awake alert sitting up in bed just finished a breakfast tray. She has made dramatic improvements since I seen her last on Thursday. She denies any abdominal pain or nausea. She states that she is hungry Physical Exam Physical Exam: Alert and oriented no acute distress Right internal jugular and left subclavian catheters in place and look good Abdomen is soft nontender. Incisional dressings clean and dry. Stoma looks good and functioning nicely Results & Data Vital Signs (Past 12 Hours) Vital Signs Temp Pulse Pulse Resp BP Pulse Ox O2 Del Method 03/02/23 08:00 79 19 174/61 H 94 Room Air 03/02/23 03:00 36.8 C 75 16 171/66 H 99 Room Air 03/02/23 00:24 74 03/01/23 23:01 37 C 76 20 132/54 L Room Air 03/01/23 23:01 Room Air PG Care Time/CCT Total # of Minutes Spent Total Time Spent with Patient: Total time spent is greater than 50% in coordination of care (as documented) at patient's floor/unit and/or counseling patient: Coding Level of Care Code 62566 Post Operative Follow-Up Diagnoses H/O right hemicolectomy Z90.49 On parenteral nutrition Z78.9 Chronic kidney disease, stage III (moderate) N18.30
--- NOTE | 2023-03-02 10:09 | Nephrology Progress Note ---
Date of Service March 02, 2023 Assessment & Plan (1) Acute kidney injury: Plan: Has been dialysis dependent. Creatinine relatively stable but persistent increasing azotemia (in part possibly related to GI bleed and parental nutrition). Non-oliguric. Orders for HD entered into the EHR today for additional clearance and to assess functionality of HD catheter. Rt IJ HD catheter placed 02/26. Document strict I/O's and repeat metabolic profile tomorrow AM. Medications are appropriately dosed for kidney function. (2) Chronic kidney disease, stage III (moderate): Plan: CKD III A2. CKD attributed to hypertension and DKD. (3) Anemia: Plan: Unfortunately H/H dropping this AM. PRBC transfusion support can be provided with HD. Parental nutrition. (4) Anastomotic leak of intestine: Plan: Adenocarcinoma of the colon s/p R open hemicolectomy 02/06/23. On post-op day #10 developed a signs of sepsis. Exploratory laparotomy revealed an anastomotic leak/perforation and had resection of the anastomosis w/ creation of an end ileostomy. Admission and Anticipated Discharge Date Admission Date: February 06, 2023 Subjective No acute events overnight. Keren was seen and evaluated prior to and during hemodialysis. Unfortunately catheter is not functioning well. She is breathing comfortably. Adequate urine output. H/H decreased. Review of Systems Review of Systems: All systems reviewed & are unremarkable except as noted in HPI & below Physical Exam Constitutional: well developed, + ill appearing and + frail appearing; no acute distress Eyes: no scleral abnormality and no corneal abnormality ENMT: Mouth: + dry oral mucous membranes; no oral mucosal abnormality Neck: normal visual inspection and trachea midline Respiratory: normal respiratory effort Auscultation: lungs clear to auscultation bilaterally Cardiovascular: Rate/Rhythm: regular rate Heart Sounds: normal S1 and normal S2 Extremities: no edema Musculoskeletal: Extremities: no cyanosis and no clubbing Skin: normal turgor and + turgor decreased; no lesions and no jaundice Neurologic: Motor/Sensory: no tremor and no asterixis Psychiatric: Orientation: alert; + not oriented x 3 Results & Data Vital Signs (Past 12 Hours) Vital Signs Temp Pulse Pulse Resp BP Pulse Ox O2 Del Method 03/02/23 08:00 79 19 174/61 H 94 Room Air 03/02/23 03:00 36.8 C 75 16 171/66 H 99 Room Air 03/02/23 00:24 74 03/01/23 23:01 37 C 76 20 132/54 L Room Air 03/01/23 23:01 Room Air Laboratory Results Laboratory Results - last 24 hr 03/01/23 03/01/23 03/01/23 11:44 16:40 19:48 WBC RBC Hgb Hct MCV MCH MCHC RDW Std Deviation RDW Coeff of Mari Plt Count MPV Immature Gran % (Auto) Neut % (Auto) Lymph % (Auto) [facility] % (Auto) Eos % (Auto) Baso % (Auto) Neut # (Auto) Lymph # (Auto) [facility] # (Auto) Eos # (Auto) Baso # (Auto) Immature Gran # (Auto) Polychromasia Sodium Potassium Chloride Carbon Dioxide Anion Gap BUN Creatinine Est Cr Clr Drug Dosing Est GFR ( Amer) Est GFR (Non-Af Amer) BUN/Creatinine Ratio Glucose POC Glucose 174 H 125 H 125 H Calcium Phosphorus Magnesium Blood Type Antibody Screen 03/02/23 03/02/23 03/02/23 00:03 04:07 06:05 WBC 14.52 H RBC 2.48 L Hgb 7.0 L Hct 21.2 L MCV 85.5 MCH 28.2 MCHC 33.0 RDW Std Deviation 50.8 H RDW Coeff of Mari 16.6 H Plt Count 463 H MPV 10.8 Immature Gran % (Auto) 4.5 Neut % (Auto) 80.5 Lymph % (Auto) 7.0 [facility] % (Auto) 6.6 Eos % (Auto) 1.2 Baso % (Auto) 0.2 Neut # (Auto) 11.68 H Lymph # (Auto) 1.[address] # (Auto) 0.96 H Eos # (Auto) 0.18 Baso # (Auto) 0.03 Immature Gran # (Auto) 0.65 H Polychromasia 1+ Sodium 143 Potassium 3.8 Chloride 107 Carbon Dioxide 24 Anion Gap 12 H BUN 140 H D Creatinine 3.65 H Est Cr Clr Drug Dosing 10.9 Est GFR ( Amer) 12.2 Est GFR (Non-Af Amer) 10.5 BUN/Creatinine Ratio 38.4 H Glucose 112 H POC Glucose 175 H 140 H Calcium 9.0 Phosphorus 4.0 Magnesium 2.1 Blood Type Antibody Screen 03/02/23 03/02/23 07:32 07:38 WBC RBC Hgb Hct MCV MCH MCHC RDW Std Deviation RDW Coeff of Mari Plt Count MPV Immature Gran % (Auto) Neut % (Auto) Lymph % (Auto) [facility] % (Auto) Eos % (Auto) Baso % (Auto) Neut # (Auto) Lymph # (Auto) [facility] # (Auto) Eos # (Auto) Baso # (Auto) Immature Gran # (Auto) Polychromasia Sodium Potassium Chloride Carbon Dioxide Anion Gap BUN Creatinine Est Cr Clr Drug Dosing Est GFR ( Amer) Est GFR (Non-Af Amer) BUN/Creatinine Ratio Glucose POC Glucose 134 H Calcium Phosphorus Magnesium Blood Type O Positive Antibody Screen NEGATIVE PG Care Time/CCT Total # of Minutes Spent Total Time Spent with Patient: Total time spent is greater than 50% in coordination of care (as documented) at patient's floor/unit and/or counseling patient: Coding Level of Care Code 36067 SUB INP/OBS CARE 3/50MIN Diagnoses Acute kidney injury N17.9 Chronic kidney disease, stage III (moderate) N18.30 Anemia D64.9 Anemia type: unspecified type Anastomotic leak of intestine K91.89 (3) Anemia Anemia type: unspecified type Qualified Code(s): D64.9 - Anemia, unspecified
[2023-03-02] MEDS: DOXYCYCLINE HYCLATE 100 MG in DEXTROSE 5% MINI-B 100 ML IV SCH ×3 (11:49→16:17)
--- NOTE | 2023-03-02 12:22 | Pharmacy Report ---
PHA: Parenteral Nutrition Con - Date of Service March 02, 2023 - Scope Pharmacy was consulted on 02/18 to manage parenteral nutrition orders for this patient. - Subjective The patient is currently on day 12 of central parenteral nutrition for anastomotic leak of intestine s/p right hemicolectomy. - Objective Height: 5 ft 4.5 in Weight: 78.2 kg Diet: NPO Intake & Output (24hrs):: Intake & Output 02/28/23 03/01/23 03/02/23 03/03/23 06:59 06:59 06:59 06:59 Intake Total 1239.39 / 1239.39 1375.647 / 3570.289 7449.1 / 1688.1 Output Total 575 / 575 930 / 930 1375 / 1375 Balance 664.39 / 664.39 445.647 / 445.647 313.1 / 313.1 Weight 71.4 kg 74.9 kg 78.2 kg 78.2 kg Laboratory Data (Last 24 Hr):: 03/02/23 06:05 Sodium 143 Potassium 3.8 Chloride 107 Carbon Dioxide 24 BUN 140 H D Creatinine 3.65 H Glucose 112 H Calcium 9.0 Phosphorus 4.0 Magnesium 2.1 Nutrition Assessment:: Please refer to the Notes section of the EMR for the most recent drawing checker note. - Assessment F: TPN @ 53.75 mL/hr E: WNL; HD planned for today N: BSGs improved - Plan For day 12 of PN administration, the following will be ordered: Increase TPN to goal macronutrients Macronutrients Amino acids 106 grams/day Dextrose 185 grams/day Lipids 50 grams- MWF Micronutrients Sodium chloride 90 mEq Sodium acetate 60 mEq Potassium acetate 20mEq Multivitamins 10 mL Trace Elements 1 mL Additional additives: Regular Insulin 10 units, Thiamine 100 mg Total volume 1410 mL to be infused over 24 hrs will provide 1551 kcal/day Labs, as indicated, will be ordered per protocol. Pharmacy will continue to follow and adjust parenteral nutrition orders on a daily basis. Thank you for allowing us to participate in the care of this patient.
--- NOTE | 2023-03-02 12:53 | Pharmacy Report ---
Pharmacy Glycemic Short Note 2 - Date of Service March 02, 2023 - Glycemic Short BSG Results (Last 24 hours): 03/01/23 03/01/23 03/02/23 16:40 19:48 00:03 Glucose POC Glucose 125 H 125 H 175 H 03/02/23 03/02/23 03/02/23 04:07 06:05 07:32 Glucose 112 H POC Glucose 140 H 134 H 03/02/23 12:40 Glucose POC Glucose 177 H OUTPATIENT ANTIDIABETIC REGIMEN: * Lantus 20 units SC PM * HbA1c = 8% (02/02/23) ASSESSMENT: 03/02: * BSGs 535-405-231-140mg/dL the last 24h. Received 12units of SQ basal and 10 units IV insulin in TPN, 8 units of bolus. * Diet advanced to full liquids. * Given stable BSGs over several days, TPN macros were advanced to goal starting this evening. Will trend BSGs. No additional insulin dose adjustments for now. 03/01: * Keren received 27 units of insulin yesterday, 10 basal + 10 in TPN bag + 7 bolus. BSGs were: 091-237-790-159 mg/dL. * Fasting up slightly to 176 mg/dL today. Will increase basal slightly today. * No change to bolus or amount of insulin in TPN bag (Dextrose = 168 g/day). Stressors stable. 02/27: * BSGs downtrending. Lantus reduced to 15 units of 02/26, Fasting 93 mg/dL- received 15 units this morning. Will reduce to 10 units tomorrow (reassess). * Dextrose content increased in TPN today but continued same 10 units in bag. Patient is to received HD today. * Continue to monitor, loosened correction factor. 02/25: * BSGs above goal the last 24h: [phone]/dL. Received 25 units of basal and 16 units of bolus insulin yesterday. * HD cath clotted - unable to dialyze today. TPN continues to run. NPO. * Lantus increased to 20 units given elevated fasting BSGs. Continued 10 units of insulin in TPN for now (unclear of future plan for PN given access issue). Novolog correctional tightened. TPN dextrose taken to goal central access (118gm CHO). 02/24: * Patient's BSGs yesterday were 137-650-942-234 mg/dL. Today's AM BSGs were 240-212-146 mg/dL. * Patient did get 2 hrs of HD yesterday and planned for 3hr HD today. * Increased SC Lantus dose given persistently BSGs. However after BSG normalized at lunchtime and as patient receiving another round of HD today, will reduce the amount of insulin the TPN bag from 20 to 10. If BSGs trend up again can consider tightening NovoLog CF. * Will keep TPN macros the same today until BSGs somewhat consistently controlled. 02/23: * Patient's blood sugars elevated again today, 0 units of insulin in PPN bag with 50 gm of dextrose * Converting to central parenteral nutrition- dextrose will increase- will add 20 units of insulin to the bag (patient was used ~19 units of correctional since resuming TPN). Adjusted checks back to q4 as this helped previously. * Resumed 10 units of lantus qAM (held 02/22 d/t NPO status and ppn held until 1600). PLAN FOR INPATIENT GLYCEMIC CONTROL: * Basal insulin * Lantus 12 units SC daily * Bolus insulin * NovoLog per scale ACHS or Q4hrs while NPO * Goal Range: Low 110 mg/dL - High 140 mg/dL * Correction Factor: 20 mg/dL/unit * No carb ratio * TPN: 10 units regular insulin
[2023-03-02] MEDS: ASCORBIC ACID 500 MG TAB PO SCH (13:03)
[2023-03-02] MEDS: CHOLECALCIFEROL 1,000 UNITS 25 MCG TAB PO SCH (13:03)
[2023-03-02] MEDS: HEPARIN SOD 5,000 UNIT/0.5 ML VIAL SQ SCH ×2 (13:03→21:30)
[2023-03-02] MEDS: DAPTOmycin 600 MG in SYRINGE 0 ML IV SCH (13:12)
[2023-03-02 14:27] LABS: Hematocrit (blood only) 18.8 % (37.0-47.0); Hemoglobin 6.2 g/dl (12.0-16.0); Mean Corpuscular Hemoglobin 27.9 pg (25.0-34.0); Mean Corpuscular Volume 84.7 fL (80.0-100.0); Mean Platelet Volume 10.9 fL (9.4-12.4); Platelet Count 435 K/uL (130-400); RDW Coefficient of Variation 16.7 % (11.5-14.5); RDW Standard Deviation 51.3 fL (36.4-46.3); Red Blood Count 2.22 M/uL (4.20-5.40); White Blood Count 12.67 K/ul (4.8-10.8)
[2023-03-02] MEDS ORDERED: SODIUM CHLORIDE 0.9% 250 ML IV PRN ×2 (14:33→16:16)
[2023-03-02] MEDS: HYDROmorphone INJ 1 MG/ML SYRINGE IV PRN (14:36)
--- NOTE | 2023-03-02 14:46 | XRay Report ---
SINGLE VIEW CHEST CLINICAL HISTORY: Dialysis catheter malfunction. FINDINGS: An AP, portable, upright chest radiograph is compared to study dated 02/26/2023 and correla skip with chest CT dated 01/16/2023. The examination is degraded by portable technique and patient rota tion. A right internal jugular central venous catheter is unchanged in position. The cardiomediastina l silhouette is top normal for projection noting atherosclerotic calcification of the thoracic aorta. Chronic interstitial thickening is previous. The lungs and pleural spaces are clear noting mild biba silar scarring/atelectasis. No pneumothorax is seen. The skeletal structures are osteopenic. The bony thorax is grossly intact. IMPRESSION: No active disease in the chest. ACT 112: Negative or not required by law. Electronically signed by: Justus Galdamez M.D. 03/02/2023 2:45 PM
[2023-03-02] MEDS ORDERED: [UNRECOGNIZED DRUG - OTHER] IV SCH (16:00)
[2023-03-02] MEDS ORDERED: CLINOLIPID 20% IV FAT EMULSION 250 ML IV SCH (16:00)
[2023-03-02] MEDS ORDERED: CENTRAL TPN IV SCH (16:00)
[2023-03-02] MEDS: MEROPENEM 500 MG in SYRINGE 0 ML IV SCH (17:00)
--- NOTE | 2023-03-02 18:02 | Billing Data ---
Date of Service March 02, 2023 Coding Level of Care Code 26613 SUB INP/OBS CARE
[2023-03-02] MEDS: VORTIOXETINE HYDROBROMIDE 10 MG PO SCH (21:29)
[2023-03-02] MEDS: QUEtiapine FUMARATE 25 MG TABLET PO SCH (21:30)
[2023-03-02] MEDS: DONEPEZIL HCL 5 MG TAB PO SCH (21:32)
[2023-03-02 23:11] LABS: Hematocrit (blood only) 23.3 % (37.0-47.0); Hemoglobin 7.8 g/dl (12.0-16.0)
[2023-03-02] MEDS: STOP CLINOLIPID SCH (23:33)
[2023-03-03] MEDS: INSULIN ASPART PER UNIT CHARGE SC SCH ×6 (00:08→21:42)
[2023-03-03 06:28] LABS: Basophils # (auto) 0.04 K/uL (0.00-0.20); Basophils % (auto) 0.3 %; Eosinophils % (auto) 1.6 %; Hematocrit (blood only) 23.5 % (37.0-47.0); Hemoglobin 7.7 g/dl (12.0-16.0); Immature Granulocytes # (auto) 0.57 K/uL (0.01-0.20); Immature Granulocytes % (auto) 4.6 %; Lymphocytes # (auto) 0.79 K/uL (1.20-3.40); Lymphocytes % (auto) 6.4 %; Mean Corpuscular Hgb Conc 32.8 g/dL (32.0-36.0); Mean Corpuscular Volume 85.5 fL (80.0-100.0); Mean Platelet Volume 11.1 fL (9.4-12.4); Monocytes # (auto) 1.09 K/uL (0.11-0.59); Monocytes % (auto) 8.8 %; Neutrophils # (auto) 9.67 K/uL (1.40-6.50); Neutrophils % (auto) 78.3 %; Platelet Count 395 K/uL (130-400); RDW Coefficient of Variation 16.5 % (11.5-14.5); RDW Standard Deviation 50.3 fL (36.4-46.3); Red Blood Count 2.75 M/uL (4.20-5.40); White Blood Count 12.36 K/ul (4.8-10.8)
--- NOTE | 2023-03-03 06:49 | Hospitalist Progress Note ---
Date of Service March 03, 2023 Assessment & Plan (1) Elevated blood pressure reading: Plan: Pt is an 87 y/o female with PMH of DM, colon cancer, TIA (2021), dementia, chronic low back pain, CKD, and HLD presenting to the hospital for right hemicolectomy. Initial surgery 02/06. Returned to the OR 02/19 for ischemic bowel resection and ileostomy creation. #Severe Sepsis with VRE and ESBL #Leukocytosis -Patient with clinical deterioration and severe sepsis starting 02/16 secondary to bowel leak. -Patient now s/p ischemic bowel resection with ileostomy creation 02/19. Peritoneal fluid growing VRE E. faecium and ESBL. -Blood cultures NGTD. Antibiotics: Ceftriaxone started 02/16 - 02/17 Switched to Zosyn 02/17 Added doxycycline 02/17 for anaplasmosis coverage, stop 03/03 Added daptomycin 02/22 for VRE Switched Zosyn to ertapenem 02/23 Switched ertapenem to meropenem 02/24 due to hypoalbuminemia Plan for 10-14 day course post-op from surgery on 02/19. Today is day 13 #ARCELIA on CKD IV #ATN -Baseline Cr ~ 1.6-1.7. -Has had a significant bump in creatinine. Likely intrinsic kidney injury most likely acute tubular necrosis as FeNa 1.7%. -Temporary dialysis line failed to allow for repetitive bouts of HD. Had tunneled dialysis catheter placement 02/26, which has still not been effective. - Creatine 3.65 03/02, improved to 2.72 03/03 -Nephrology continues to follow; HD attempted in 03/02 but unsuccessful with line #Anemia #Coagulability #Bleeding #Heme Positive Stool -Patient with some degree of GI bleed as hemoglobin continues to drop intermittently. Not a candidate for scope at this time. -Started on pantoprazole BID. -Patient with several blood transfusions this admission - last 1U 03/02. Total of 7 units pRBC this admission -Patient is on heparin due to VTE risk. -Hemoglobin 03/03 7.7 #Elevated BP -Patient with elevated blood pressure most likely secondary to recent surgery and pain. -Was initially started on amlodipine 5 mg during this admission. -We will hold for now due to risk of becoming hypotensive and high risk of falls. #A fib with RVR -Patient without a history of atrial fibrillation, had a bought on 02/20. -Heparin SQ BID for VTE ppx. #Parental Nutrition -Pharmacy/Dietary on board. TPN through central access. -Ostomy functioning. 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 -Plan for 14-day course of doxycycline; last day 03/03 #Dementia -Continue Seroquel 12.5 mg and donepezil 5 mg QHS #Insulin Dependent Diabetes Mellitus -SSI while hospitalized. Resume home dosing on discharge #Depression -Continue home vortioxetine #OAB -oxybutynin currently being held; if continues to tolerate PO intact could resume #HLD -Statin held while in daptomycin #History of TIA - clopidogrel currently being held since surgery, if she continues to remain stable would consider resuming Code Status: Patient does have a living will stating DNR/DNI etc. This does not currently apply as patient presented for elective procedure. Full code in the setting of complications from recent procedure. Lines: PIV x1, tunneled dialysis catheter, Vera Diet: ostomy functioning, full DVT ppx: heparin BID Dispo: PCU/Tele, will need rehab (2) Chronic kidney disease, stage IV (severe): (3) Anastomotic leak of intestine: (4) Atrial fibrillation with rapid ventricular response: (5) On parenteral nutrition: Admission and Anticipated Discharge Date Admission Date: February 06, 2023 Supervising Physician Co-Signing Physician Notes I personally examined the patient and verified all kinsey points of history and exam, discussed case, and agree with decision making with Dr Simón ashford under reasonable control. No acute complaints today. Very tired. Discussed progress. Discussed case with surgery. Appreciate input. Discussed with case management. Vitals noted, in general she is awake and alert pleasant no distress. HEENT normocephalic atraumatic mucous membranes moist. Breathing unlabored no accessory muscle use good effort. Skin shows no rashes no pallor or icterus. Neuro without focal deficits. Severe sepsis sec to Anastomotic leak - ESBL and VRE in peritoneal fluid - continue IV dapto/meropenem Through tomorrow and then stopthis would be 14 days of antibiotic treatment. Anemia - s/p total 6PRBC now. Suspect anemia is a little bit dilution, little bit of oozing, and a little bit slow hematopoiesisno overt hemorrhage. Heme positive stool - no concern of active bleeding. see above. continue PPI. ARCELIA - Seems to be improving, hopefully can hold off on any need for further dialysis Malnutrition - continue TPN. cautiously advance diet, paying attention aspiration risk Swallowing dysfunction due to prolonged NPO status - mostly appears to have difficulty due to fatigue - advance diet with caution, follow for aspiration Vera/tunnel cath/ostomy Heparin SQ for DVT proph Subjective No events overnight. Seen at bedside this morning. Was able to tolerate some PO intake yesterday. Has not eaten breakfast yet this morning. Review of Systems Review of Systems: As per above Physical Exam Physical Exam: Constitutional: well-appearing, no acute distress HEENT: NCAT, no conjunctival injection CV: regular rhythm, no murmur appreciated, extremities well-perfused, no LE edema Resp: CTABL, no wheezes/rales/rhonchi appreciated, no increased work of breathing GI: soft, nondistended, nontender MSK: no gross deformities appreciated Skin: warm, dry, no rash appreciated Neuro: alert, oriented, no focal neurologic deficit appreciated Results & Data Results & Data Vital Signs (Past 12 Hours) Vital Signs Temp Pulse Pulse Resp BP BP Pulse Ox 03/03/23 03:58 36.5 C 88 20 133/55 L 96 03/03/23 01:00 81 03/03/23 00:31 03/02/23 23:13 37.2 C 79 18 165/68 H 99 03/02/23 19:31 36.5 C 75 18 159/76 H 98 03/02/23 19:05 36.5 C 80 18 163/76 H 98 O2 Del Method 03/03/23 03:58 Room Air 03/03/23 01:00 03/03/23 00:31 Room Air 03/02/23 23:13 Room Air 03/02/23 19:31 03/02/23 19:05 Resident Activity Tracking Resident Involvement: Resident Care Provided Care Provided: Adult Hospital Medicine
[2023-03-03 07:14] LABS: Polychromasia 1+
[2023-03-03 07:27] LABS: Albumin Level 2.1 gm/dl (3.4-5.0); Calcium 8.8 mg/dl (8.6-10.3)
[2023-03-03 07:36] LABS: BUN Creatinine Ratio 39.7 (10-20); Creatinine Clr Calc Pharmacy 14.6 ml/min; Est GFR (African American) 17.4 ml/min; Phosphorus 3.6 mg/dl (2.5-4.9)
[2023-03-03] MEDS: CHOLECALCIFEROL 1,000 UNITS 25 MCG TAB PO SCH (08:34)
[2023-03-03] MEDS: ASCORBIC ACID 500 MG TAB PO SCH (08:34)
[2023-03-03] MEDS: HEPARIN SOD 5,000 UNIT/0.5 ML VIAL SQ SCH ×2 (08:34→21:43)
[2023-03-03] MEDS: PANTOprazole 40 MG in SYRINGE 0 ML IV SCH ×2 (08:34→21:44)
[2023-03-03] MEDS: LANTUS PER UNIT CHARGE SC SCH (08:44)
--- NOTE | 2023-03-03 09:47 | Nephrology Progress Note ---
Date of Service March 03, 2023 Assessment & Plan (1) Acute kidney injury: Plan: Non-oliguric. Creatinine appears to be improving more than would be expected with limited HD treatment yesterday. I suspect we are seeing some kidney recovery. Electrolytes are normal. Volume status acceptable. There is no need for dialysis today. I will continue to monitor for kidney recovery. HD catheter has not been functioning well and ultimately would likely need to be replaced if additional HD is required. Rt IJ HD catheter placed 02/26. Document strict I/O's and repeat metabolic profile tomorrow AM. Medications are appropriately dosed for kidney function. (2) Chronic kidney disease, stage III (moderate): Plan: CKD III A2. CKD attributed to hypertension and DKD. (3) Anemia: Plan: Unfortunately H/H dropped yesterday but thankfully stable overnight. PRBC transfusion support PRN. Parental nutrition. (4) Anastomotic leak of intestine: Plan: Adenocarcinoma of the colon s/p R open hemicolectomy 02/06/23. On post-op day #10 developed a signs of sepsis. Exploratory laparotomy revealed an anastomotic leak/perforation and had resection of the anastomosis w/ creation of an end ileostomy. Admission and Anticipated Discharge Date Admission Date: February 06, 2023 Subjective No acute events overnight. Some leakage around Vera reported. Urine output remains good. Unfortunately, HD was stopped after ~1.5 hours yesterday due to high arterial pressure alarms and limited Qb (<200 ml/min). Thankfully, electrolytes have remains controlled and creatinine improving. Findings suggest some kidney recovery. Keren was sleeping comfortably this AM. She denies dyspnea. She denied pain. No additional melena or hematochezia reported this AM. Review of Systems Review of Systems: All systems reviewed & are unremarkable except as noted in HPI & below Physical Exam Constitutional: well developed and + frail appearing; no acute distress Eyes: no scleral abnormality and no corneal abnormality ENMT: Mouth: + dry oral mucous membranes; no oral mucosal abnormality Neck: normal visual inspection and trachea midline Respiratory: normal respiratory effort Auscultation: lungs clear to auscultation bilaterally Cardiovascular: Rate/Rhythm: regular rate Heart Sounds: normal S1 and normal S2 Extremities: no edema (some generalized edema notably dependent edema) Musculoskeletal: Extremities: no cyanosis and no clubbing Skin: + turgor decreased; no jaundice Neurologic: Motor/Sensory: no tremor and no asterixis Psychiatric: Orientation: alert and cooperative Results & Data Vital Signs (Past 12 Hours) Vital Signs Temp Pulse Pulse Resp BP Pulse Ox O2 Del Method 03/03/23 07:38 36.6 C 69 17 139/57 L 99 Room Air 03/03/23 03:58 36.5 C 88 20 133/55 L 96 Room Air 03/03/23 01:00 81 03/03/23 00:31 Room Air 03/02/23 23:13 37.2 C 79 18 165/68 H 99 Room Air Laboratory Results Laboratory Results - last 24 hr 03/02/23 03/02/23 03/02/23 07:38 12:40 12:41 WBC 12.67 H RBC 2.22 L Hgb 6.2 L* Hct 18.8 L* MCV 84.7 MCH 27.9 MCHC 33.0 RDW Std Deviation 51.3 H RDW Coeff of Mari 16.7 H Plt Count 435 H MPV 10.9 Immature Gran % (Auto) Neut % (Auto) Lymph % (Auto) [place] % (Auto) Eos % (Auto) Baso % (Auto) Neut # (Auto) Lymph # (Auto) [place] # (Auto) Eos # (Auto) Baso # (Auto) Immature Gran # (Auto) Polychromasia Sodium Potassium Chloride Carbon Dioxide Anion Gap BUN Creatinine Est Cr Clr Drug Dosing Est GFR ( Amer) Est GFR (Non-Af Amer) BUN/Creatinine Ratio Glucose POC Glucose 177 H Calcium Phosphorus Magnesium Iron TIBC Unsaturated IBC Transferrin % Sat Albumin Blood Type O Positive Antibody Screen NEGATIVE Crossmatch See Detail 03/02/23 03/02/23 03/02/23 16:43 19:19 22:51 WBC RBC Hgb 7.8 L Hct 23.3 L MCV MCH MCHC RDW Std Deviation RDW Coeff of Mari Plt Count MPV Immature Gran % (Auto) Neut % (Auto) Lymph % (Auto) [place] % (Auto) Eos % (Auto) Baso % (Auto) Neut # (Auto) Lymph # (Auto) [place] # (Auto) Eos # (Auto) Baso # (Auto) Immature Gran # (Auto) Polychromasia Sodium Potassium Chloride Carbon Dioxide Anion Gap BUN Creatinine Est Cr Clr Drug Dosing Est GFR ( Amer) Est GFR (Non-Af Amer) BUN/Creatinine Ratio Glucose POC Glucose 142 H 120 H Calcium Phosphorus Magnesium Iron TIBC Unsaturated IBC Transferrin % Sat Albumin Blood Type Antibody Screen Crossmatch 03/03/23 03/03/23 03/03/23 00:02 04:10 05:57 WBC 12.36 H RBC 2.75 L Hgb 7.7 L Hct 23.5 L MCV 85.5 MCH 28.0 MCHC 32.8 RDW Std Deviation 50.3 H RDW Coeff of Mari 16.5 H Plt Count 395 MPV 11.1 Immature Gran % (Auto) 4.6 Neut % (Auto) 78.3 Lymph % (Auto) 6.4 [place] % (Auto) 8.8 Eos % (Auto) 1.6 Baso % (Auto) 0.3 Neut # (Auto) 9.67 H Lymph # (Auto) 0.79 L [place] # (Auto) 1.09 H Eos # (Auto) 0.20 Baso # (Auto) 0.04 Immature Gran # (Auto) 0.57 H Polychromasia 1+ Sodium 143 Potassium 4.0 Chloride 110 H Carbon Dioxide 25 Anion Gap 8 BUN 108 H D Creatinine 2.72 H D Est Cr Clr Drug Dosing 14.6 Est GFR ( Amer) 17.4 Est GFR (Non-Af Amer) 15.0 BUN/Creatinine Ratio 39.7 H Glucose 90 POC Glucose 143 H 136 H Calcium 8.8 Phosphorus 3.6 Magnesium 2.0 Iron 35 TIBC 135 L Unsaturated IBC 100 L Transferrin % Sat 26 Albumin 2.1 L Blood Type Antibody Screen Crossmatch 03/03/23 07:47 WBC RBC Hgb Hct MCV MCH MCHC RDW Std Deviation RDW Coeff of Mari Plt Count MPV Immature Gran % (Auto) Neut % (Auto) Lymph % (Auto) [place] % (Auto) Eos % (Auto) Baso % (Auto) Neut # (Auto) Lymph # (Auto) [place] # (Auto) Eos # (Auto) Baso # (Auto) Immature Gran # (Auto) Polychromasia Sodium Potassium Chloride Carbon Dioxide Anion Gap BUN Creatinine Est Cr Clr Drug Dosing Est GFR ( Amer) Est GFR (Non-Af Amer) BUN/Creatinine Ratio Glucose POC Glucose 134 H Calcium Phosphorus Magnesium Iron TIBC Unsaturated IBC Transferrin % Sat Albumin Blood Type Antibody Screen Crossmatch Diagnostic Findings SINGLE VIEW CHEST FINDINGS: An AP, portable, upright chest radiograph is compared to study dated 02/26/2023 and correlated with chest CT dated 01/16/2023. The examination is degraded by portable technique and patient rotation. A right internal jugular central venous catheter is unchanged in position. The cardiomediastinal silhouette is top normal for projection noting atherosclerotic calcification of the thoracic aorta. Chronic interstitial thickening is previous. The lungs and pleural spaces are clear noting mild bibasilar scarring/atelectasis. No pneumothorax is seen. The skeletal structures are osteopenic. The bony thorax is grossly intact. IMPRESSION: No active disease in the chest. PG Care Time/CCT Total # of Minutes Spent Total Time Spent with Patient: Total time spent is greater than 50% in coordination of care (as documented) at patient's floor/unit and/or counseling patient: Coding Level of Care Code 73124 SUB INP/OBS CARE 3/50MIN Diagnoses Acute kidney injury N17.9 Chronic kidney disease, stage III (moderate) N18.30 Anemia D64.9 Anemia type: unspecified type Anastomotic leak of intestine K91.89 (3) Anemia Anemia type: unspecified type Qualified Code(s): D64.9 - Anemia, unspecified
--- NOTE | 2023-03-03 13:11 | Surgery Progress Note ---
Date of Service March 03, 2023 Assessment & Plan (1) H/O right hemicolectomy: Plan: renal fx improving. no dialysis today awaiting video swallow..hopefully we can advance diet for better nutrition. continue tpn for now PT/OT Admission and Anticipated Discharge Date Admission Date: February 06, 2023 Subjective pt seen. doing well today. alert/oriented. feeding herself. denies pain Physical Exam Physical Exam: unchanged. stoma functioning. dressings clean/dry Results & Data Vital Signs (Past 12 Hours) Vital Signs Temp Pulse Resp BP Pulse Ox O2 Del Method 03/03/23 07:38 36.6 C 69 17 139/57 L 99 Room Air 03/03/23 03:58 36.5 C 88 20 133/55 L 96 Room Air PG Care Time/CCT Total # of Minutes Spent Total Time Spent with Patient: Total time spent is greater than 50% in coordination of care (as documented) at patient's floor/unit and/or counseling patient: Coding Level of Care Code 45784 Post Operative Follow-Up Diagnoses H/O right hemicolectomy Z90.49
--- NOTE | 2023-03-03 14:09 | Fluoroscopy Report ---
VIDEO SWALLOW STUDY CLINICAL HISTORY: Aspiration. COMPARISON STUDY: No priors. FLUOROSCOPY TIME: 2.27 minutes. Ka,r: 10.5 mGy FINDINGS: Fluoroscopic guidance is provided to the department of speech pathology in performing a vid eo swallow study. A dialysis catheter projects over the neck. The patient consumed barium impregnated pudding, cracker with paste, nectar-thick liquids, and thin barium while the swallowing mechanism wa s observed in real-time. There is aspiration with cough reflex seen with thin barium. Silent aspirati on was seen with residuals on the nectar-thick liquid texture. No aspiration was seen with the puddin g or cracker with paste textures. Silent aspiration was seen with thin barium wash at the end of the procedure. IMPRESSION: 1. Aspiration was seen with the thin barium and nectar-thick liquid textures. 2. See dedicated speech pathology report for detailed findings and recommendations. Dictated: 03/03/2023 12:45 PM Transcribed: 03/03/2023 12:54 PM Brian [id number] [email or web address] Electronically signed by: Justus Galdamez M.D. 03/03/2023 2:08 PM
[2023-03-03] MEDS: MEROPENEM 500 MG in SYRINGE 0 ML IV SCH (16:14)
[2023-03-03] MEDS: [UNRECOGNIZED DRUG - OTHER] IV SCH (16:14)
[2023-03-03] MEDS: CENTRAL TPN IV SCH (16:14)
[2023-03-03] MEDS ORDERED: Nursing to Pharmacy Communication SCH (17:00)
--- NOTE | 2023-03-03 17:31 | Billing Data ---
Date of Service March 03, 2023 Coding Level of Care Code 07164 SUB INP/OBS CARE MIN
[2023-03-03] MEDS: VORTIOXETINE HYDROBROMIDE 10 MG PO SCH (21:40)
[2023-03-03] MEDS: QUEtiapine FUMARATE 25 MG TABLET PO SCH (21:41)
[2023-03-03] MEDS: DONEPEZIL HCL 5 MG TAB PO SCH (21:41)
[2023-03-04] MEDS: MEROPENEM 500 MG in SYRINGE 0 ML IV SCH ×2 (03:09→16:48)
[2023-03-04] MEDS: HYDROmorphone INJ 1 MG/ML SYRINGE IV PRN (03:51)
--- NOTE | 2023-03-04 06:50 | Hospitalist Progress Note ---
Date of Service March 04, 2023 Assessment & Plan (1) Elevated blood pressure reading: Plan: Pt is an 87 y/o female with PMH of DM, colon cancer, TIA (2021), dementia, chronic low back pain, CKD, and HLD presenting to the hospital for right hemicolectomy. Initial surgery 02/06. Returned to the OR 02/19 for ischemic bowel resection and ileostomy creation. #Severe Sepsis with VRE and ESBL #Leukocytosis -Patient with clinical deterioration and severe sepsis starting 02/16 secondary to bowel leak. -Patient now s/p ischemic bowel resection with ileostomy creation 02/19. Peritoneal fluid growing VRE E. faecium and ESBL. -Blood cultures NGTD. Open wound noted on abdomen; plan for wound vac Antibiotics: Currently on Daptomycin and Ertapenem Plan for 14 day course of antibiotics, post-op. Today is day 14. #ARCELIA on CKD IV #ATN -Baseline Cr ~ 1.6-1.7. -Has had a significant bump in creatinine. Likely intrinsic kidney injury most likely acute tubular necrosis as FeNa 1.7%. -Temporary dialysis line failed to allow for repetitive bouts of HD. Had tunneled dialysis catheter placement 02/26, which has still not been effective and would need to be replaced if further HD is needed. - Creatine with improvement; 2.78 03/04 -Nephrology continues to follow #Anemia #Coagulability #Bleeding #Heme Positive Stool -Patient with some degree of GI bleed as hemoglobin continues to drop intermittently. Not a candidate for scope at this time. -Started on pantoprazole BID. -Patient with several blood transfusions this admission - last 1U 03/02. Total of 7 units pRBC this admission -Patient is on heparin due to VTE risk. -Hemoglobin 03/04 7.2 #Elevated BP -Patient with elevated blood pressure most likely secondary to recent surgery and pain. -Was initially started on amlodipine 5 mg during this admission. -We will hold for now due to risk of becoming hypotensive and high risk of falls. #A fib with RVR -Patient without a history of atrial fibrillation, had a bought on 02/20. -Heparin SQ BID for VTE ppx. #Parental Nutrition -Pharmacy/Dietary on board. TPN through central access. -Ostomy functioning. -Diet was resumed with full liquids. Concern for aspiration given results from swallow study. After speaking to both pt and her daughter plan is to continue with careful po intake. Will need to continue TPN until PO intake improves. 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 -Completed 10 day course of doxycycline #Dementia -Continue Seroquel 12.5 mg and donepezil 5 mg QHS #Insulin Dependent Diabetes Mellitus -SSI while hospitalized. Resume home dosing on discharge #Depression -Continue home vortioxetine #OAB -oxybutynin currently being held; if continues to tolerate PO intact could resume #HLD -Statin held while on daptomycin #History of TIA - clopidogrel currently being held since surgery, if she continues to remain stable would consider resuming Code Status: Patient does have a living will stating DNR/DNI etc. This does not currently apply as patient presented for elective procedure. Full code in the setting of complications from recent procedure. Lines: PIV x1, tunneled dialysis catheter, Vera Diet: ostomy functioning, full DVT ppx: heparin BID Dispo: Plan for rehab once medically stable, anticipate end of this week (2) Chronic kidney disease, stage IV (severe): (3) Anastomotic leak of intestine: (4) Atrial fibrillation with rapid ventricular response: (5) On parenteral nutrition: Admission and Anticipated Discharge Date Admission Date: February 06, 2023 Supervising Physician Co-Signing Physician Notes I personally examined the patient and verified all kinsey points of history and exam, discussed case, and agree with decision making with Dr Gr no new issues. PO intake still poor but trying. no acute complaints. Vitals noted, in general she is awake and alert pleasant no distress. HEENT normocephalic atraumatic mucous membranes moist. Breathing unlabored no accessory muscle use good effort. Skin shows no rashes no pallor or icterus. Neuro without focal deficits. Severe sepsis sec to Anastomotic leak - ESBL and VRE in peritoneal fluid - ok to stop IV abx today Anemia - s/p total 6PRBC now. Suspect anemia is a little bit dilution, little bit of oozing, and a little bit slow hematopoiesisno overt hemorrhage. Heme positive stool - no concern of active bleeding. see above. continue PPI. ARCELIA - Seems to be improving overall - stalled out today - appreciate nephrology adding fluids, hopefully can hold off on any need for further dialysis Malnutrition - continue TPN. cautiously advance diet, paying attention aspiration risk Swallowing dysfunction due to prolonged NPO status - mostly appears to have difficulty due to fatigue - advance diet with caution, follow for aspiration Vera/tunnel cath/ostomy Heparin SQ for DVT proph wound vac for abdominal wound anticipate encompass in near future Subjective Pt seen at bedside this morning. Doing well. Was sitting up getting ready to eat breakfast. Review of Systems 2 Review of Systems: As per above Physical Exam Physical Exam: Constitutional: well-appearing, no acute distress HEENT: NCAT, no conjunctival injection CV: regular rhythm, no murmur appreciated, extremities well-perfused, trace LE edema Resp: CTABL, no wheezes/rales/rhonchi appreciated, no increased work of breathing GI: ostomy in place with good output, open wound noted on abdomen with some mild surrounding erythema MSK: no gross deformities appreciated Skin: warm, dry, no rash appreciated Neuro: alert, oriented, no focal neurologic deficit appreciated Results & Data Results & Data Vital Signs (Past 12 Hours) Vital Signs Temp Pulse Pulse Resp BP Pulse Ox O2 Del Method 03/04/23 03:00 37.0 C 88 16 163/73 H 98 Room Air 03/03/23 23:00 90 03/03/23 22:40 36.4 C L 94 H 20 150/72 H 99 Room Air 03/03/23 20:00 Room Air 03/03/23 19:55 36.9 C 96 H 20 161/73 H 98 Room Air Resident Activity Tracking Resident Involvement: Resident Care Provided Care Provided: Adult Hospital Medicine
[2023-03-04 06:55] LABS: Basophils # (auto) 0.02 K/uL (0.00-0.20); Basophils % (auto) 0.2 %; Eosinophils # (auto) 0.11 K/uL (0.00-0.50); Eosinophils % (auto) 1.1 %; Hematocrit (blood only) 21.5 % (37.0-47.0); Hemoglobin 7.2 g/dl (12.0-16.0); Immature Granulocytes # (auto) 0.22 K/uL (0.01-0.20); Immature Granulocytes % (auto) 2.3 %; Lymphocytes # (auto) 0.81 K/uL (1.20-3.40); Lymphocytes % (auto) 8.4 %; Mean Corpuscular Hemoglobin 28.3 pg (25.0-34.0); Mean Corpuscular Hgb Conc 33.5 g/dL (32.0-36.0); Mean Corpuscular Volume 84.6 fL (80.0-100.0); Mean Platelet Volume 10.9 fL (9.4-12.4); Monocytes # (auto) 0.95 K/uL (0.11-0.59); Monocytes % (auto) 9.9 %; Neutrophils % (auto) 78.1 %; Platelet Count 388 K/uL (130-400); RDW Coefficient of Variation 16.3 % (11.5-14.5); RDW Standard Deviation 50.4 fL (36.4-46.3); Red Blood Count 2.54 M/uL (4.20-5.40); White Blood Count 9.61 K/ul (4.8-10.8)
[2023-03-04 07:18] LABS: RBC Morphology Unremarkable
[2023-03-04 07:22] LABS: BUN Creatinine Ratio 44.2 (10-20); Bilirubin,Total 0.4 mg/dl (0.2-1.0); Creatinine Clr Calc Pharmacy 14.3 ml/min; Est GFR (African American) 16.9 ml/min; Est GFR (Non-African American) 14.6 ml/min; Phosphorus 3.3 mg/dl (2.5-4.9); Potassium 3.9 mmol/L (3.5-5.1)
[2023-03-04] MEDS: INSULIN ASPART PER UNIT CHARGE SC SCH ×4 (09:04→20:58)
[2023-03-04] MEDS: ASCORBIC ACID 500 MG TAB PO SCH (09:06)
[2023-03-04] MEDS: CHOLECALCIFEROL 1,000 UNITS 25 MCG TAB PO SCH (09:06)
[2023-03-04] MEDS: HEPARIN SOD 5,000 UNIT/0.5 ML VIAL SQ SCH ×2 (09:07→20:53)
[2023-03-04] MEDS: PANTOprazole 40 MG in SYRINGE 0 ML IV SCH ×2 (09:12→20:53)
[2023-03-04] MEDS: LANTUS PER UNIT CHARGE SC SCH (09:12)
--- NOTE | 2023-03-04 09:53 | Nephrology Progress Note ---
Date of Service March 04, 2023 Assessment & Plan (1) Acute kidney injury: Plan: Non-oliguric. Creatinine stable. Electrolytes are normal. Volume status acceptable. There is no need for dialysis today. I will continue to monitor for kidney recovery. HD catheter has not been functioning well and ultimately would likely need to be replaced if additional HD is required. Rt IJ HD catheter placed 02/[address] Mary. Document strict I/O's and repeat metabolic profile tomorrow AM. Medications are appropriately dosed for kidney function. (2) Chronic kidney disease, stage III (moderate): Plan: CKD III A2. CKD attributed to hypertension and DKD. (3) Anemia: Plan: Noted GI bleeding history but no melena or hematochezia in past 24 hours. H/H relatively stable. PRBC transfusion support PRN. Parental nutrition. (4) Anastomotic leak of intestine: Plan: Adenocarcinoma of the colon s/p R open hemicolectomy 02/06/23. On post-op day #10 developed a signs of sepsis. Exploratory laparotomy revealed an anastomotic leak/perforation and had resection of the anastomosis w/ creation of an end ileostomy. Remains on parental nutrition. Admission and Anticipated Discharge Date Admission Date: February 06, 2023 Subjective No acute events overnight. Keren is resting comfortably in bed this AM. No fevers or chills. Denies pain. Appetite has improved slightly. Review of Systems Review of Systems: All systems reviewed & are unremarkable except as noted in HPI & below Physical Exam Constitutional: well developed, + ill appearing and + frail appearing; no ac kimberly distress Eyes: no scleral abnormality and no corneal abnormality ENMT: Mouth: + dry oral mucous membranes; no oral mucosal abnormality Neck: normal visual inspection and trachea midline Respiratory: normal respiratory effort Auscultation: lungs clear to auscultation bilaterally Cardiovascular: Rate/Rhythm: regular rate Heart Sounds: normal S1 and normal S2 Extremities: no edema (some generalized edema notably dependent edema) Musculoskeletal: Extremities: no cyanosis and no clubbing Skin: + turgor decreased; no jaundice Neurologic: Motor/Sensory: no tremor and no asterixis Psychiatric: Orientation: alert and cooperative Results & Data Vital Signs (Past 12 Hours) Vital Signs Temp Pulse Pulse Pulse Resp BP Pulse Ox 03/04/23 07:05 36.3 C L 79 14 155/66 H 97 03/04/23 03:00 37.0 C 88 16 163/73 H 98 03/03/23 23:00 90 03/03/23 22:40 36.4 C L 94 H 20 150/72 H 99 O2 Del Method 03/04/23 07:05 Room Air 03/04/23 03:00 Room Air 03/03/23 23:00 03/03/23 22:40 Room Air Laboratory Results Laboratory Results - last 24 hr 03/03/23 03/03/23 03/03/23 11:30 16:22 21:00 WBC RBC Hgb Hct MCV MCH MCHC RDW Std Deviation RDW Coeff of Mari Plt Count MPV Immature Gran % (Auto) Neut % (Auto) Lymph % (Auto) [place] % (Auto) Eos % (Auto) Baso % (Auto) Neut # (Auto) Lymph # (Auto) [place] # (Auto) Eos # (Auto) Baso # (Auto) Immature Gran # (Auto) RBC Morphology Sodium Potassium Chloride Carbon Dioxide Anion Gap BUN Creatinine Est Cr Clr Drug Dosing Est GFR ( Amer) Est GFR (Non-Af Amer) BUN/Creatinine Ratio Glucose POC Glucose 158 H 107 H 141 H Calcium Phosphorus Magnesium Total Bilirubin AST Alkaline Phosphatase 03/04/23 03/04/23 06:25 07:06 WBC 9.61 RBC 2.54 L Hgb 7.2 L Hct 21.5 L MCV 84.6 MCH 28.3 MCHC 33.5 RDW Std Deviation 50.4 H RDW Coeff of Mari 16.3 H Plt Count 388 MPV 10.9 Immature Gran % (Auto) 2.3 Neut % (Auto) 78.1 Lymph % (Auto) 8.4 [place] % (Auto) 9.9 Eos % (Auto) 1.1 Baso % (Auto) 0.2 Neut # (Auto) 7.50 H Lymph # (Auto) 0.81 L [place] # (Auto) 0.95 H Eos # (Auto) 0.11 Baso # (Auto) 0.02 Immature Gran # (Auto) 0.22 H RBC Morphology Unremarkable Sodium 144 Potassium 3.9 Chloride 111 H Carbon Dioxide 24 Anion Gap 9 BUN 123 H Creatinine 2.78 H Est Cr Clr Drug Dosing 14.3 Est GFR ( Amer) 16.9 Est GFR (Non-Af Amer) 14.6 BUN/Creatinine Ratio 44.2 H Glucose 111 H POC Glucose 127 H Calcium 9.0 Phosphorus 3.3 Magnesium 2.0 Total Bilirubin 0.4 AST 28 Alkaline Phosphatase 481 H PG Care Time/CCT Total # of Minutes Spent Total Time Spent with Patient: Total time spent is greater than 50% in coordination of care (as documented) at patient's floor/unit and/or counseling patient: Coding Level of Care Code 16565 SUB INP/OBS CARE 3/50MIN Diagnoses Acute kidney injury N17.9 Chronic kidney disease, stage III (moderate) N18.30 Anemia D64.9 Anemia type: unspecified type Anastomotic leak of intestine K91.89 (3) Anemia Anemia type: unspecified type Qualified Code(s): D64.9 - Anemia, unspecified
--- NOTE | 2023-03-04 13:05 | Surgery Progress Note ---
Date of Service March 04, 2023 Assessment & Plan (1) H/O right hemicolectomy: Plan: Primary service is trying to make arrangements to get her discharged to a facility such as [facility]. I agree with this plan. She will need to remain on TPN until she has better oral intake. I am going to reach out to the wound care nurse and see if they can place a wound VAC. I think this would be the best course of action to get her discharged. No acute surgical issues. Dr. Del Castillo covering for the weekend. Admission and Anticipated Discharge Date Admission Date: February 06, 2023 Subjective " Patient seen. Worsening generalized weakness today. She denies any abdominal pain Physical Exam Constitutional: Alert. No acute distress I took down her dressings. She has a small amount of debris. She does have a mild wound infection. The fascia is intact .her stoma looks good and is functioning nicely Results & Data Vital Signs (Past 12 Hours) Vital Signs Temp Pulse Pulse Resp BP Pulse Ox O2 Del Method 03/04/23 11:09 36.6 C 86 21 198/68 H 96 Room Air 03/04/23 07:05 36.3 C L 79 14 155/66 H 97 Room Air 03/04/23 03:00 37.0 C 88 16 163/73 H 98 Room Air PG Care Time/CCT Total # of Minutes Spent Total Time Spent with Patient: Total time spent is greater than 50% in coordination of care (as documented) at patient's floor/unit and/or counseling patient: Coding Level of Care Code 85721 Post Operative Follow-Up Diagnoses H/O right hemicolectomy Z90.49
[2023-03-04] MEDS: DAPTOmycin 600 MG in SYRINGE 0 ML IV SCH (13:26)
[2023-03-04] MEDS ORDERED: CLINOLIPID 20% IV FAT EMULSION 250 ML IV SCH (16:00)
--- NOTE | 2023-03-04 16:11 | Billing Data ---
Date of Service March 04, 2023 Coding Level of Care Code 32495 SUB INP/OBS CARE MIN
[2023-03-04] MEDS: CENTRAL TPN IV SCH ×2 (16:44→17:18)
[2023-03-04] MEDS: [UNRECOGNIZED DRUG - OTHER] IV SCH (16:44)
[2023-03-04] MEDS: [UNRECOGNIZED DRUG - OTHER] IV SCH (17:18)
[2023-03-04] MEDS: HYDROmorphone INJ 0.5 MG/0.5 ML SYR IV PRN (18:24)
[2023-03-04] MEDS: SODIUM CHLORIDE 0.45 % 1,000 ML IV SCH (18:25)
[2023-03-04] MEDS: DONEPEZIL HCL 5 MG TAB PO SCH (20:52)
[2023-03-04] MEDS: QUEtiapine FUMARATE 25 MG TABLET PO SCH (20:52)
[2023-03-04] MEDS: VORTIOXETINE HYDROBROMIDE 10 MG PO SCH (20:53)
[2023-03-04] MEDS: STOP CLINOLIPID SCH (22:16)
[2023-03-05] MEDS: SODIUM CHLORIDE 0.45 % 1,000 ML IV SCH ×3 (02:37→18:49)
[2023-03-05] MEDS: MEROPENEM 500 MG in SYRINGE 0 ML IV SCH (03:21)
--- NOTE | 2023-03-05 07:02 | Surgery Progress Note ---
Date of Service March 05, 2023 Assessment & Plan (1) H/O right hemicolectomy: Plan: Status post right hemicolectomy on 02/06/2023, exploratory laparotomy with creation of ileostomy on 02/19/2023 Continue analgesics as needed Continue full liquid diet for the present time with continuation of TPN until oral intake has improved Continue antibiotics in the form of meropenem and daptomycin Continue wound VAC on suction Check a.m. labs when available Attempt to mobilize as able Case management is following as patient will require need rehab placement Admission and Anticipated Discharge Date Admission Date: February 06, 2023 Supervising Physician Co-Signing Physician Notes Patient discussed with Gómez Ferrara, agree with above. Awaiting placement, dysfunction or ostomy. Labs normal. No acute changes at present time from a surgery perspective. Subjective Patient is currently resting in bed. She complains of some abdominal pain. She denies any nausea or vomiting. She denies any fevers, shakes, or chills I discussed with the shiftman nurse attending to the patient. She notes the patient's ostomy is functioning appropriately. She notes that the patient is also tolerating a full liquid diet. She did not identify any acute concerns overnight. Physical Exam Gastrointestinal (Abdomen): Abdomen is soft and nondistended. Wound VAC is in place and appears to be holding suction appropriately. Patient's ostomy appears viable and has liquid stool noted in the collection bag. The patient did have some tenderness to palpation with palpation of her abdomen in a generalized fashion. There is no rebound tenderness or guarding. Results & Data Vital Signs (Past 12 Hours) Vital Signs Temp Pulse Pulse Resp BP Pulse Ox O2 Del Method 03/05/23 05:57 36.8 C 86 16 160/75 H 99 Room Air 03/05/23 00:06 36.5 C 82 15 166/68 H 98 Room Air 03/04/23 23:35 80 03/04/23 20:21 36.4 C L 89 16 184/79 H 98 Room Air 03/04/23 20:00 Room Air PG Care Time/CCT Total # of Minutes Spent Total Time Spent with Patient: Total time spent is greater than 50% in coordination of care (as documented) at patient's floor/unit and/or counseling patient: Coding Level of Care Code 80425 Post Operative Follow-Up Diagnoses H/O right hemicolectomy Z90.49
[2023-03-05] MEDS: HEPARIN SOD 5,000 UNIT/0.5 ML VIAL SQ SCH ×2 (07:48→20:36)
[2023-03-05] MEDS: ASCORBIC ACID 500 MG TAB PO SCH (07:48)
[2023-03-05] MEDS: CHOLECALCIFEROL 1,000 UNITS 25 MCG TAB PO SCH (07:48)
[2023-03-05 08:01] LABS: Calcium 8.9 mg/dl (8.6-10.3); Creatinine Clr Calc Pharmacy 15.4 ml/min; Est GFR (African American) 18.7 ml/min; Est GFR (Non-African American) 16.1 ml/min; Magnesium 1.9 mg/dl (1.7-2.4); Phosphorus 2.9 mg/dl (2.5-4.9); Potassium 3.7 mmol/L (3.5-5.1)
[2023-03-05 08:07] LABS: Basophilic Stippling 1+; Basophils # (auto) 0.02 K/uL (0.00-0.20); Basophils % (auto) 0.2 %; Eosinophils # (auto) 0.16 K/uL (0.00-0.50); Eosinophils % (auto) 1.7 %; Hematocrit (blood only) 22.7 % (37.0-47.0); Hemoglobin 7.3 g/dl (12.0-16.0); Immature Granulocytes # (auto) 0.24 K/uL (0.01-0.20); Immature Granulocytes % (auto) 2.5 %; Lymphocytes # (auto) 0.68 K/uL (1.20-3.40); Lymphocytes % (auto) 7.2 %; Mean Corpuscular Hemoglobin 28.1 pg (25.0-34.0); Mean Corpuscular Hgb Conc 32.2 g/dL (32.0-36.0); Mean Corpuscular Volume 87.3 fL (80.0-100.0); Mean Platelet Volume 11.5 fL (9.4-12.4); Monocytes % (auto) 9.5 %; Neutrophils # (auto) 7.47 K/uL (1.40-6.50); Neutrophils % (auto) 78.9 %; Platelet Count 339 K/uL (130-400); Platelet Estimate Normal (Normal); Polychromasia 1+; RDW Coefficient of Variation 16.2 % (11.5-14.5); RDW Standard Deviation 51.7 fL (36.4-46.3); White Blood Count 9.47 K/ul (4.8-10.8)
[2023-03-05] MEDS: INSULIN ASPART PER UNIT CHARGE SC SCH ×4 (08:19→20:42)
[2023-03-05] MEDS: LANTUS PER UNIT CHARGE SC SCH (08:20)
[2023-03-05] MEDS: PANTOprazole 40 MG in SYRINGE 0 ML IV SCH ×2 (08:20→20:41)
--- NOTE | 2023-03-05 08:35 | Nephrology Progress Note ---
Date of Service March 05, 2023 Assessment & Plan (1) Acute kidney injury: Plan: * Non-oliguric. UO 1500 cc last 24 hours. Creatinine is starting to trend down. Volume status and electrolyte balance are acceptable. Patient appears to be entering recovery phase of kidney injury. No acute indication for HD at this time * Rt IJ HD catheter placed 02/[address] Mary. Leave catheter in place for now * Document strict I/O's and repeat metabolic profile tomorrow AM. (2) Chronic kidney disease, stage III (moderate): Plan: * CKD stage G3/A2. Baseline Cr 1.3-1.6. CKD attributed to hypertension and DKD. (3) Anemia: Plan: * h/o GIB. H&H relatively stable. PRBC transfusion support PRN (4) Anastomotic leak of intestine: Plan: * Adenocarcinoma of the colon s/p R open hemicolectomy 02/06/23. On post-op day #10 developed a signs of sepsis. Exploratory laparotomy revealed an anastomotic leak/perforation and had resection of the anastomosis w/ creation of an end ileostomy. * Remains on parental nutrition. Admission and Anticipated Discharge Date Admission Date: February 06, 2023 Subjective Mrs. Hull was evaluated in her hospital room this morning. He son was present at bedside. Mrs. Hull c/o fatigue. She voices no other medical concerns. Review of Systems 2 Constitutional: no fever Eyes: no problem reported Ear, Nose, Mouth, Throat: no problem reported Respiratory: no cough and no dyspnea Cardiovascular: no chest pain Gastrointestinal: no nausea and no vomiting Physical Exam Constitutional: + frail appearing Eyes: PERRL, conjunctivae normal, anicteric sclerae ENMT: external ear and nose normal, oropharynx normal Neck: trachea midline, no thyromegaly Respiratory: normal respiratory effort, lungs clear to auscultation Cardiovascular: RRR, no murmur, no edema Gastrointestinal (Abdomen): Inspection/Auscultation: + hypoactive bowel sounds Skin: no rashes, warm and dry Neurologic: Speech / Cognition: normal speech and normal cognition Results & Data Vital Signs (Past 12 Hours) Vital Signs Temp Pulse Pulse Resp BP Pulse Ox O2 Del Method 03/05/23 05:57 36.8 C 86 16 160/75 H 99 Room Air 03/05/23 00:06 36.5 C 82 15 166/68 H 98 Room Air 03/04/23 23:35 80 Laboratory Results Laboratory Tests 03/02/23 03/03/23 03/03/23 06:05 05:57 05:57 WBC Hgb Hct Plt Count Sodium Potassium Chloride Carbon Dioxide BUN 140 H D 108 H D Creatinine 3.65 H 2.72 H D Glucose Calcium Phosphorus Magnesium 03/04/23 03/04/23 03/05/23 06:25 06:25 06:59 WBC 9.47 Hgb 7.3 L Hct 22.7 L Plt Count 339 Sodium 139 Potassium 3.7 Chloride 107 Carbon Dioxide 23 BUN 123 H 123 H Creatinine 2.78 H Glucose Calcium Phosphorus Magnesium 03/05/23 06:59 WBC Hgb Hct Plt Count Sodium Potassium Chloride Carbon Dioxide BUN Creatinine 2.56 H Glucose 113 H Calcium 8.9 Phosphorus 2.9 Magnesium 1.9 PG Care Time/CCT Total # of Minutes Spent Total Time Spent with Patient: Total time spent is greater than 50% in coordination of care (as documented) at patient's floor/unit and/or counseling patient: Coding Level of Care Code 81896 SUB INP/OBS CARE 3/50MIN Diagnoses Acute kidney injury N17.9 Chronic kidney disease, stage III (moderate) N18.30 Anemia D64.9 Anemia type: unspecified type Anastomotic leak of intestine K91.89 (3) Anemia Anemia type: unspecified type Qualified Code(s): D64.9 - Anemia, unspecified
[2023-03-05] MEDS: HYDROmorphone INJ 1 MG/ML SYRINGE IV PRN (13:25)
--- NOTE | 2023-03-05 13:48 | Pharmacy Report ---
Pharmacy Glycemic Short Note 2 - Date of Service March 05, 2023 - Glycemic Short BSG Results (Last 24 hours): 03/04/23 03/04/23 03/05/23 16:14 20:21 06:59 Glucose 113 H POC Glucose 116 H 191 H 03/05/23 03/05/23 07:26 10:59 Glucose POC Glucose 124 H 131 H OUTPATIENT ANTIDIABETIC REGIMEN: * Lantus 20 units SC PM * HbA1c = 8% (02/02/23) ASSESSMENT: 03/05/23 * BSGs yesterday were 485-130-550-191 mg/dL. Patient received 12 units of Lantus and 4 units of bolus. There are 10 units of insulin in the TPN. * Continue TPN + 10 units in bag. * BSGs today are 124-131 mg/dL so continue regimen. 03/02: * BSGs [phone]/dL the last 24h. Received 12units of SQ basal and 10 units IV insulin in TPN, 8 units of bolus. * Diet advanced to full liquids. * Given stable BSGs over several days, TPN macros were advanced to goal starting this evening. Will trend BSGs. No additional insulin dose adjustments for now. 03/01: * Keren received 27 units of insulin yesterday, 10 basal + 10 in TPN bag + 7 bolus. BSGs were: [phone] mg/dL. * Fasting up slightly to 176 mg/dL today. Will increase basal slightly today. * No change to bolus or amount of insulin in TPN bag (Dextrose = 168 g/day). Stressors stable. 02/27: * BSGs downtrending. Lantus reduced to 15 units of 02/26, Fasting 93 mg/dL- received 15 units this morning. Will reduce to 10 units tomorrow (reassess). * Dextrose content increased in TPN today but continued same 10 units in bag. Patient is to received HD today. * Continue to monitor, loosened correction factor. 02/25: * BSGs above goal the last 24h: [phone]/dL. Received 25 units of basal and 16 units of bolus insulin yesterday. * HD cath clotted - unable to dialyze today. TPN continues to run. NPO. * Lantus increased to 20 units given elevated fasting BSGs. Continued 10 units of insulin in TPN for now (unclear of future plan for PN given access issue). Novolog correctional tightened. TPN dextrose taken to goal central access (118gm CHO). 02/24: * Patient's BSGs yesterday were [phone] mg/dL. Today's AM BSGs were 240-212-146 mg/dL. * Patient did get 2 hrs of HD yesterday and planned for 3hr HD today. * Increased SC Lantus dose given persistently BSGs. However after BSG normalized at lunchtime and as patient receiving another round of HD today, will reduce the amount of insulin the TPN bag from 20 to 10. If BSGs trend up again can c onsider tightening NovoLog CF. * Will keep TPN macros the same today until BSGs somewhat consistently controlled. 02/23: * Patient's blood sugars elevated again today, 0 units of insulin in PPN bag w ith 50 gm of dextrose * Converting to central parenteral nutrition- dextrose will increase- will add 20 units of insulin to the bag (patient was used ~19 units of correctional since resuming TPN). Adjusted checks back to q4 as this helped previously. * Resumed 10 units of lantus qAM (held 02/22 d/t NPO status and ppn held until 1600). PLAN FOR INPATIENT GLYCEMIC CONTROL: * Basal insulin * Lantus 12 units SC daily * Bolus insulin * NovoLog per scale ACHS or Q4hrs while NPO * Goal Range: Low 110 mg/dL - High 140 mg/dL * Correction Factor: 20 mg/dL/unit * No carb ratio * TPN: 10 units regular insulin
--- NOTE | 2023-03-05 14:31 | Hospitalist Progress Note ---
Date of Service March 05, 2023 Assessment & Plan (1) Elevated blood pressure reading: Plan: Pt is an 87 y/o female with PMH of DM, colon cancer, TIA (2021), dementia, chronic low back pain, CKD, and HLD presenting to the hospital for right hemicolectomy. Initial surgery 02/06. Returned to the OR 02/19 for ischemic bowel resection and ileostomy creation. #Severe Sepsis with VRE and ESBL #Leukocytosis -Patient with clinical deterioration and severe sepsis starting 02/16 secondary to bowel leak. -Patient now s/p ischemic bowel resection with ileostomy creation 02/19. Peritoneal fluid growing VRE E. faecium and ESBL. - Open wound noted on abdomen; plan for wound vac completed 14 days of coverage for cultured bacteria #ARCELIA on CKD IV #ATN -Baseline Cr ~ 1.6-1.7. -overall improving - extra IV fluids have helped - stallout in improvement was likely from volume status #Anemia #Coagulability #Bleeding #Heme Positive Stool -no surprise that she would have oozing given abdominal wound, anastamosis, etc -continue to follow, no hemorrhage, risk/benefit favors pharmacologic DVT proph; transfuse PRN #Elevated BP -Patient with elevated blood pressure most likely secondary to recent surgery and pain. -Was initially started on amlodipine 5 mg during this admission. -We will hold for now due to risk of becoming hypotensive, more lethargic --> want to maintain perfusion; spikes in BP have been asymptomatic #A fib with RVR -Patient without a history of atrial fibrillation, had a bout on 02/20. -Heparin SQ BID for VTE ppx. #Parental Nutrition -Pharmacy/Dietary on board. TPN through central access. -Ostomy functioning. 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 -Completed 10 day course of doxycycline #Dementia -Continue Seroquel 12.5 mg and donepezil 5 mg QHS #Insulin Dependent Diabetes Mellitus -SSI while hospitalized. Resume home dosing on discharge #Depression -Continue home vortioxetine #OAB -oxybutynin currently being held; if continues to tolerate PO intact could resume #HLD -Statin held while on daptomycin #History of TIA - clopidogrel currently being held since surgery, if she continues to remain stable would consider resuming Code Status: Patient does have a living will stating DNR/DNI etc. This does not currently apply as patient presented for elective procedure. Full code in the setting of complications from recent procedure. Lines: PIV x1, tunneled dialysis catheter, Vera Diet: ostomy functioning, full DVT ppx: heparin BID Dispo: Plan for rehab once medically stable, anticipate end of this week (2) Chronic kidney disease, stage IV (severe): (3) Anastomotic leak of intestine: (4) Atrial fibrillation with rapid ventricular response: (5) On parenteral nutrition: Admission and Anticipated Discharge Date Admission Date: February 06, 2023 Subjective tired and generally doesn't feel well but no focal complaints. family present - updated to the best of my ability and to their satisfaction Review of Systems Review of Systems: All systems reviewed & are unremarkable except as noted in HPI & below Physical Exam Physical Exam: gen aao but seems easily confused/falls asleep but nad heent nc at mmm breathing unlabored no accessory muscles good effort skin no rashes no pallor or icterus diffuse edema no focal neuro deficits Results & Data Results & Data Vital Signs (Past 12 Hours) Vital Signs Temp Pulse Pulse Pulse Pulse Resp BP 03/05/23 11:00 98.4 F 84 18 172/67 H 03/05/23 08:00 85 03/05/23 08:00 98.4 F 88 22 03/05/23 05:57 98.2 F 86 16 160/75 H BP Pulse Ox O2 Del Method 03/05/23 11:00 100 Room Air 03/05/23 08:00 03/05/23 08:00 189/73 H 98 Room Air 03/05/23 05:57 99 Room Air PG Care Time/CCT Total # of Minutes Spent Total Time Spent with Patient: Total time spent is greater than 50% in coordination of care (as documented) at patient's floor/unit and/or counseling patient: Coding Level of Care Code 06016 SUB INP/OBS CARE 3/50MIN Diagnoses Elevated blood pressure reading R03.0 Chronic kidney disease, stage IV (severe) N18.4 Anastomotic leak of intestine K91.89 Atrial fibrillation with rapid ventricular response I48.91 On parenteral nutrition Z78.9
--- NOTE | 2023-03-05 14:36 | Billing Data ---
Date of Service March 05, 2023 Coding Level of Care Code 63748 SUB INP/OBS CARE MIN
[2023-03-05] MEDS ORDERED: CENTRAL TPN IV SCH (16:00)
[2023-03-05] MEDS ORDERED: [UNRECOGNIZED DRUG - OTHER] IV SCH (16:00)
[2023-03-05] MEDS: [UNRECOGNIZED DRUG - OTHER] IV SCH (16:18)
[2023-03-05] MEDS: CENTRAL TPN IV SCH (16:18)
[2023-03-05] MEDS: QUEtiapine FUMARATE 25 MG TABLET PO SCH (20:40)
[2023-03-05] MEDS: DONEPEZIL HCL 5 MG TAB PO SCH (20:40)
[2023-03-05] MEDS: VORTIOXETINE HYDROBROMIDE 10 MG PO SCH (20:41)
[2023-03-05] MEDS ORDERED: FUROSEMIDE 40 MG/4 ML VIAL IV ONE (23:20)
--- NOTE | 2023-03-06 06:09 | Surgery Progress Note ---
Date of Service March 06, 2023 Assessment & Plan (1) H/O right hemicolectomy: Plan: Status post right hemicolectomy on 02/06/2023, exploratory laparotomy with creation of ileostomy on 02/19/2023 Due to the noted melanotic appearance of the patient's stool we will send a Hemoccult. The patient is receiving intravenous Protonix for GI prophylaxis. Of note, the patient's hemoglobin and hematocrit from yesterday appeared stable. Check a.m. labs when available. If significant drop in H&H noted may need to consider transfusion and possibly holding patient's Lovenox Continue full liquid diet for the present time and plan to continue TPN as oral intake does not appear to be overall reliable until oral intake has improved Course of antibiotics antibiotics in the form of meropenem and daptomycin have been completed Continue wound VAC on suction Nephrology input notedyesterday it was determined no need for renal replacement therapy as creatinine was trending down and urine output had improved Continue mobilization attempts Case management is following as patient will require need rehab placement Admission and Anticipated Discharge Date Admission Date: February 06, 2023 Supervising Physician Co-Signing Physician Notes Patient discussed with Gómez Ferrara, agree with above. Possible bloody stool in ostomy bag, H&H stable. She is on Plavix and Lovenox. Patient is also on Protonix. If continues to be an issue, may need to hold anticoagulation possibly antiplatelet therapy. No significant changes with plan Subjective Patient is currently resting comfortably in bed. She notes some soreness at her abdomen but otherwise does not offer any complaints. She says she is not short of breath. I discussed with the operation shift supervisor nurse attending the patient. She notes the patient did receive one-time dose of Lasix ordered by the medical service secondary to edema. She notes that the patient has not had any nausea or vomiting. She notes that the patient has not had much in the way of oral intake over the past shift. She also notes the patient's ostomy appears to be functioning but the stool appears melanotic. In addition, she notes the patient did pass 1 small stool via her rectum last evening. No fevers were noted. Physical Exam Respiratory: Patient is not using accessory muscles to aid in respiration. Breath sounds are decreased at the bases. No wheezing noted. Gastrointestinal (Abdomen): Abdomen is soft and nondistended with positive bowel sounds. Ostomy appears viable. There is a large amount of liquid stool in the collection bag that does appear to be black/dark in color. Wound VAC is in place and appears to be holding suction appropriately. Musculoskeletal: Generalized edema noted of the upper and lower extremities Psychiatric: Patient is noted to be alert and oriented x 3. Results & Data Vital Signs (Past 12 Hours) Vital Signs Temp Pulse Pulse Pulse Pulse Resp BP 03/06/23 02:41 36.5 C 78 16 140/61 03/05/23 22:55 36.4 C L 73 18 123/64 03/05/23 21:58 83 03/05/23 21:58 81 03/05/23 20:45 03/05/23 19:50 36.9 C 85 20 167/62 H Pulse Ox O2 Del Method 03/06/23 02:41 99 Room Air 03/05/23 22:55 97 Room Air 03/05/23 21:58 03/05/23 21:58 03/05/23 20:45 Room Air 03/05/23 19:50 99 Room Air PG Care Time/CCT Total # of Minutes Spent Total Time Spent with Patient: Total time spent is greater than 50% in coordination of care (as documented) at patient's floor/unit and/or counseling patient: Coding Level of Care Code 11746 Post Operative Follow-Up Diagnoses H/O right hemicolectomy Z90.49
[2023-03-06 07:31] LABS: Basophils # (auto) 0.02 K/uL (0.00-0.20); Basophils % (auto) 0.2 %; Eosinophils # (auto) 0.11 K/uL (0.00-0.50); Eosinophils % (auto) 1.4 %; Hematocrit (blood only) 21.9 % (37.0-47.0); Immature Granulocytes # (auto) 0.27 K/uL (0.01-0.20); Immature Granulocytes % (auto) 3.3 %; Lymphocytes # (auto) 0.71 K/uL (1.20-3.40); Lymphocytes % (auto) 8.8 %; Mean Corpuscular Hemoglobin 27.9 pg (25.0-34.0); Mean Corpuscular Volume 87.3 fL (80.0-100.0); Mean Platelet Volume 11.2 fL (9.4-12.4); Monocytes # (auto) 0.76 K/uL (0.11-0.59); Monocytes % (auto) 9.4 %; Neutrophils # (auto) 6.21 K/uL (1.40-6.50); Neutrophils % (auto) 76.9 %; Platelet Count 334 K/uL (130-400); RDW Standard Deviation 50.9 fL (36.4-46.3); Red Blood Count 2.51 M/uL (4.20-5.40); White Blood Count 8.08 K/ul (4.8-10.8)
--- NOTE | 2023-03-06 07:48 | Hospitalist Progress Note ---
Date of Service March 06, 2023 Assessment & Plan (1) Elevated blood pressure reading: Plan: Pt is an 87 y/o female with PMH of DM, colon cancer, TIA (2021), dementia, chronic low back pain, CKD, and HLD presenting to the hospital for right hemicolectomy. Initial surgery 02/06. Returned to the OR 02/19 for ischemic bowel resection and ileostomy creation. #Severe Sepsis with VRE and ESBL #Leukocytosis -Patient with clinical deterioration and severe sepsis starting 02/16 secondary to bowel leak. -Patient now s/p ischemic bowel resection with ileostomy creation 02/19. Peritoneal fluid growing VRE E. faecium and ESBL. - Open wound noted on abdomen; plan for wound vac completed 14 days of coverage for cultured bacteria #ARCELIA on CKD IV #ATN -Baseline Cr ~ 1.6-1.7. -overall improving - extra IV fluids have helped - stallout in improvement was likely from volume status #Anemia #Coagulability #Bleeding #Heme Positive Stool -no surprise that she would have oozing given abdominal wound, anastamosis, etc -continue to follow, no hemorrhage, risk/benefit favors pharmacologic DVT proph; transfuse PRN - Hbg= 7 this morning, repeat qAM and transfuse below 7 #Elevated BP -Patient with elevated blood pressure most likely secondary to recent surgery and pain. -Was initially started on amlodipine 5 mg during this admission. -We will hold for now due to risk of becoming hypotensive, more lethargic --> want to maintain perfusion; spikes in BP have been asymptomatic #A fib with RVR -Patient without a history of atrial fibrillation, had a bout on 02/20. -Heparin SQ BID for VTE ppx. #Parental Nutrition -Pharmacy/Dietary on board. TPN through central access. -Ostomy functioning. 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 -Completed 10 day course of doxycycline #Dementia -Continue Seroquel 12.5 mg and donepezil 5 mg QHS #Insulin Dependent Diabetes Mellitus -SSI while hospitalized. Resume home dosing on discharge #Depression -Continue home vortioxetine #OAB -oxybutynin currently being held; if continues to tolerate PO intact could resume #HLD -Statin held while on daptomycin #History of TIA - clopidogrel currently being held since surgery, if she continues to remain stable would consider resuming Code Status: Patient does have a living will stating DNR/DNI etc. This does not currently apply as patient presented for elective procedure. Full code in the setting of complications from recent procedure. Lines: PIV x1, tunneled dialysis catheter, Vera Diet: ostomy functioning, full DVT ppx: heparin BID Dispo: Plan for rehab once medically stable, anticipate end of this week (2) Chronic kidney disease, stage IV (severe): (3) Anastomotic leak of intestine: (4) Atrial fibrillation with rapid ventricular response: (5) On parenteral nutrition: Admission and Anticipated Discharge Date Admission Date: February 06, 2023 Supervising Physician Co-Signing Physician Notes I personally examined the patient and verified all kinsey points of history and exam, discussed case, and agree with decision making with Dr Gr No new problems noted. Reached out to [facility] physician to discuss the case, given that she appears to be moving towards stability for transfer to rehab, but obviously has several ongoing acute/subacute issues. Vitals noted, in general she is awake and alert pleasant no distress. HEENT normocephalic atraumatic mucous membranes moist. Breathing unlabored no accessory muscle use good effort. Skin shows no rashes no pallor or icterus. Neuro without focal deficits. Severe sepsis sec to Anastomotic leak - ESBL and VRE in peritoneal fluid -now has completed 14 days of antibiotics Anemia - s/p total 6PRBC now. Suspect anemia is a little bit dilution, little bit of oozing, and a little bit slow hematopoiesisno overt hemorrhage. Will likely need ongoing transfusions, but at the same time, risk/benefit favors continuing pharmacologic DVT prophylaxis given that a DVT in the situation could be catastrophic, and at the very least would mandate escalation of anticoagulation from prophylactic to therapeutic dosing. Heme positive stool - no concern of active bleeding. see above. continue PPI. ARCELIA - definitely overall improved, no acute further need for dialysis, continue careful fluid management and vigilance. Malnutrition - continue TPN. cautiously advance diet, paying attention aspiration risk Swallowing dysfunction due to prolonged NPO status - mostly appears to have difficulty due to fatigue - advance diet with caution, follow for aspiration Vera/tunnel cath/ostomy Heparin SQ for DVT prophsee above, does appear to have oozing from GI tract anastomosis as well as wound, but while those have contributed to the need for p eriodic transfusions, having a DVT at this phase of recovery could potentially have catastrophic consequences wound vac for abdominal wound anticipate [facility] in near future Subjective Pt seen at bedside this morning. Some concern for fluid overload overnight; UE edema and TPN was held for a period. No complaints this morning. Review of Systems Review of Systems: As per above Physical Exam Physical Exam: Constitutional: well-appearing, no acute distress HEENT: NCAT, no conjunctival injection CV: regular rhythm, no murmur appreciated, extremities well-perfused, trace LE edema. +2 pitting edema left UE. Resp: CTABL, no wheezes/rales/rhonchi appreciated, no increased work of breathing GI: ostomy in place with good output, open wound noted on abdomen with some mild surrounding erythema MSK: no gross deformities appreciated Skin: warm, dry, no rash appreciated Neuro: alert, oriented, no focal neurologic deficit appreciated Results & Data Results & Data Vital Signs (Past 12 Hours) Vital Signs Temp Pulse Pulse Pulse Pulse Resp BP 03/06/23 07:06 36.8 C 77 18 165/74 H 03/06/23 02:41 36.5 C 78 16 140/61 03/05/23 22:55 36.4 C L 73 18 123/64 03/05/23 21:58 83 03/05/23 21:58 81 03/05/23 20:45 03/05/23 19:50 36.9 C 85 20 167/62 H Pulse Ox O2 Del Method 03/06/23 07:06 99 Room Air 03/06/23 02:41 99 Room Air 03/05/23 22:55 97 Room Air 03/05/23 21:58 03/05/23 21:58 03/05/23 20:45 Room Air 03/05/23 19:50 99 Room Air
[2023-03-06 07:50] LABS: BUN Creatinine Ratio 50.6 (10-20); C Reactive Protein 7.23 mg/dl (0-0.5); Creatinine Clr Calc Pharmacy 15.7 ml/min; Est GFR (African American) 18.8 ml/min; Est GFR (Non-African American) 16.2 ml/min; Magnesium 1.8 mg/dl (1.7-2.4); Phosphorus 3.3 mg/dl (2.5-4.9); Potassium 3.7 mmol/L (3.5-5.1)
[2023-03-06 07:58] LABS: Basophilic Stippling 1+; Polychromasia 2+
[2023-03-06] MEDS: INSULIN ASPART PER UNIT CHARGE SC SCH ×4 (08:35→20:48)
--- NOTE | 2023-03-06 08:47 | Nephrology Progress Note ---
Date of Service March 06, 2023 Assessment & Plan (1) Acute kidney injury: Plan: * Non-oliguric. UO 2327 cc last 24 hours. Creatinine stable at 2.5. Patient is oxygenating well on RA. She appears to be entering recovery phase of kidney injury. No acute indication for HD at this time * Rt IJ HD catheter placed 02/[address] Mary. Leave catheter in place for now * Document strict I/O's and repeat metabolic profile tomorrow AM. (2) Chronic kidney disease, stage III (moderate): Plan: * CKD stage G3/A2. Baseline Cr 1.3-1.6. CKD attributed to hypertension and DKD. (3) Anemia: Plan: * h/o GIB. 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 PRBC transfusion support PRN (4) Anastomotic leak of intestine: Plan: * Adenocarcinoma of the colon s/p R open hemicolectomy 02/06/23. On post-op day #10 developed a signs of sepsis. Exploratory laparotomy revealed an anastomotic leak/perforation and had resection of the anastomosis w/ creation of an end ileostomy. * Remains on parental nutrition. Admission and Anticipated Discharge Date Admission Date: February 06, 2023 Subjective Mrs. Hull was evaluated in her hospital room this morning. She c/o fatigue but voiced no other medical concerns. Review of Systems Constitutional: no fever Eyes: no problem reported Ear, Nose, Mouth, Throat: no problem reported Respiratory: no cough and no dyspnea Cardiovascular: no chest pain Gastrointestinal: no nausea and no vomiting Physical Exam Constitutional: + frail appearing Eyes: PERRL, conjunctivae normal, anicteric sclerae ENMT: external ear and nose normal, oropharynx normal Neck: trachea midline, no thyromegaly Respiratory: normal respiratory effort, lungs clear to auscultation Cardiovascular: RRR, no murmur, no edema Gastrointestinal (Abdomen): Inspection/Auscultation: + hypoactive bowel sounds Skin: no rashes, warm and dry Neurologic: Speech / Cognition: normal speech and normal cognition Results & Data Vital Signs (Past 12 Hours) Vital Signs Temp Pulse Pulse Pulse Resp BP Pulse Ox 03/06/23 07:06 36.8 C 77 18 165/74 H 99 03/06/23 02:41 36.5 C 78 16 140/61 99 03/05/23 22:55 36.4 C L 73 18 123/64 97 03/05/23 21:58 83 03/05/23 21:58 81 O2 Del Method 03/06/23 07:06 Room Air 03/06/23 02:41 Room Air 03/05/23 22:55 Room Air 03/05/23 21:58 03/05/23 21:58 Laboratory Results Laboratory Tests 03/03/23 03/04/23 03/05/23 05:57 06:25 06:59 WBC Hgb Hct Plt Count Sodium Potassium Chloride Carbon Dioxide BUN 108 H D 123 H 123 H Creatinine 2.72 H D 2.78 H 2.56 H Glucose 111 H Calcium 9.0 Phosphorus 3.3 Magnesium 2.0 03/06/23 06:55 WBC 8.08 Hgb 7.0 L Hct 21.9 L Plt Count 334 Sodium 140 Potassium 3.7 Chloride 109 H Carbon Dioxide 22 BUN 129 H Creatinine 2.55 H Glucose Calcium Phosphorus Magnesium PG Care Time/CCT Total # of Minutes Spent Total Time Spent with Patient: Total time spent is greater than 50% in coordination of care (as documented) at patient's floor/unit and/or counseling patient: Coding Level of Care Code 90804 SUB INP/OBS CARE 3/50MIN Diagnoses Acute kidney injury N17.9 Chronic kidney disease, stage III (moderate) N18.30 Anemia D64.9 Anemia type: unspecified type Anastomotic leak of intestine K91.89 (3) Anemia Anemia type: unspecified type Qualified Code(s): D64.9 - Anemia, unspecified
[2023-03-06] MEDS ORDERED: LANTUS PER UNIT CHARGE SC SCH ×2 (09:00→21:00)
[2023-03-06] MEDS: ASCORBIC ACID 500 MG TAB PO SCH (09:34)
[2023-03-06] MEDS: CHOLECALCIFEROL 1,000 UNITS 25 MCG TAB PO SCH (09:34)
[2023-03-06] MEDS: PANTOprazole 40 MG in SYRINGE 0 ML IV SCH ×2 (10:03→20:50)
[2023-03-06] MEDS: HEPARIN SOD 5,000 UNIT/0.5 ML VIAL SQ SCH ×2 (12:23→20:51)
--- NOTE | 2023-03-06 13:10 | Billing Data ---
Date of Service March 06, 2023 Coding Level of Care Code 91721 SUB INP/OBS CARE
--- NOTE | 2023-03-06 14:20 | Pharmacy Report ---
Pharmacy Glycemic Short Note 2 - Date of Service March 06, 2023 - Glycemic Short BSG Results (Last 24 hours): 03/05/23 03/05/23 03/06/23 16:26 20:08 06:55 Glucose 108 H POC Glucose 131 H 142 H 03/06/23 03/06/23 07:03 11:19 Glucose POC Glucose 108 H 140 H OUTPATIENT ANTIDIABETIC REGIMEN: * Lantus 20 units SC PM * HbA1c = 8% (02/02/23) ASSESSMENT: 03/06/23 * BSGs yesterday were [phone] mg/dL. Patient received 12 units of Lantus + 1 unit of Novolog (Given at HS). There are 10 units of IV insulin in her TPN. Dextrose remains stable at 185 grams/day. * Fasting today was 108 mg/dL. This is most likely due to TPN being paused overnight. This raises concern that hyperglycemia from TPN is being covered with basal insulin. * Hold Lantus this AM and switch to BID dosing for more control. It may be reasonable to increase insulin in TPN. * Continue Novolog. 03/05/23 * BSGs yesterday were 137-340-391-191 mg/dL. Patient received 12 units of Lantus and 4 units of bolus. There are 10 units of insulin in the TPN. * Continue TPN + 10 units in bag. * BSGs today are 124-131 mg/dL so continue regimen. 03/02: * BSGs [phone]/dL the last 24h. Received 12units of SQ basal and 10 units IV insulin in TPN, 8 units of bolus. * Diet advanced to full liquids. * Given stable BSGs over several days, TPN macros were advanced to goal starting this evening. Will trend BSGs. No additional insulin dose adjustments for now. 03/01: * Keren received 27 units of insulin yesterday, 10 basal + 10 in TPN bag + 7 bolus. BSGs were: [phone] mg/dL. * Fasting up slightly to 176 mg/dL today. Will increase basal slightly today. * No change to bolus or amount of insulin in TPN bag (Dextrose = 168 g/day). Stressors stable. 02/27: * BSGs downtrending. Lantus reduced to 15 units of 02/26, Fasting 93 mg/dL- received 15 units this morning. Will reduce to 10 units tomorrow (reassess). * Dextrose content increased in TPN today but continued same 10 units in bag. Patient is to received HD today. * Continue to monitor, loosened correction factor. 02/25: * BSGs above goal the last 24h: [phone]/dL. Received 25 units of basal and 16 units of bolus insulin yesterday. * HD cath clotted - unable to dialyze today. TPN continues to run. NPO. * Lantus increased to 20 units given elevated fasting BSGs. Continued 10 units of insulin in TPN for now (unclear of future plan for PN given access issue). Novolog correctional tightened. TPN dextrose taken to goal central access (118gm CHO). 02/24: * Patient's BSGs yesterday were [phone] mg/dL. Today's AM BSGs were 240-212-146 mg/dL. * Patient did get 2 hrs of HD yesterday and planned for 3hr HD today. * Increased SC Lantus dose given persistently BSGs. However after BSG normalized at lunchtime and as patient receiving another round of HD today, will reduce the amount of insulin the TPN bag from 20 to 10. If BSGs trend up again can consider tightening NovoLog CF. * Will keep TPN macros the same today until BSGs somewhat consistently controlled. 02/23: * Patient's blood sugars elevated again today, 0 units of insulin in PPN bag with 50 gm of dextrose * Converting to central parenteral nutrition- dextrose will increase- will add 20 units of insulin to the bag (patient was used ~19 units of correctional since resuming TPN). Adjusted checks back to q4 as this helped previously. * Resumed 10 units of lantus qAM (held 02/22 d/t NPO status and ppn held until 1600). PLAN FOR INPATIENT GLYCEMIC CONTROL: * Basal insulin * Lantus 5 units SC BID (hold if BSG < 120 mg/dL) * Bolus insulin * NovoLog per scale ACHS or Q4hrs while NPO * Goal Range: Low 110 mg/dL - High 140 mg/dL * Correction Factor: 20 mg/dL/unit * No carb ratio * TPN: 10 units regular insulin
[2023-03-06] MEDS ORDERED: CENTRAL TPN IV SCH (16:00)
[2023-03-06] MEDS ORDERED: [UNRECOGNIZED DRUG - OTHER] IV SCH (16:00)
[2023-03-06] MEDS ORDERED: CLINOLIPID 20% IV FAT EMULSION 250 ML IV SCH (16:00)
[2023-03-06] MEDS: VORTIOXETINE HYDROBROMIDE 10 MG PO SCH (20:50)
[2023-03-06] MEDS: QUEtiapine FUMARATE 25 MG TABLET PO SCH (20:52)
[2023-03-06] MEDS: DONEPEZIL HCL 5 MG TAB PO SCH (20:52)
[2023-03-06] MEDS: STOP CLINOLIPID SCH (22:54)
--- NOTE | 2023-03-07 06:14 | Surgery Progress Note ---
Date of Service March 07, 2023 Assessment & Plan (1) H/O right hemicolectomy: Plan: Status post right hemicolectomy on 02/06/2023, exploratory laparotomy with creation of ileostomy on 02/19/2023 Continue analgesics as needed Continue full liquid diet for the present time Continue TPN until patient's oral intake will meet her caloric needs Patient has noted anemiaprimary service notes that they will consider transfusion if hemoglobin drops below 7 Continue PPI for GI prophylaxis Continue VAC to suction Course of antibiotics antibiotics in the form of meropenem and daptomycin have been completed Continue wound VAC on suction Nephrology input notedit is felt the patient is in the recovery phase of acute kidney injury without the need for renal replacement therapy; will continue to monitor urine output Check a.m. labs when available Continue mobilization attempts Case management is following as patient will require need rehab placement Admission and Anticipated Discharge Date Admission Date: February 06, 2023 Subjective Patient is currently resting comfortably in bed. She continues to note some t enderness of her abdomen. She offers little in the way of complaints at this time I discussed with the shift supervisor rn nurse attending to the patient. She notes that although patient is on a full liquid diet she has had a little in the way of oral intake due to a poor appetite. There is been no reported nausea or emesis. Patient continues to have ostomy function with melanotic appearing stool in the collection bag. It is noted the patient's urine output has improved. No other acute surgical issues noted overnight. Physical Exam Gastrointestinal (Abdomen): Abdomen is soft and nondistended. Ostomy appears pink and viable. There is melanotic appearing stool in the collection bag similar to yesterday. Wound VAC is in place and is holding suction appropriately. Results & Data Vital Signs (Past 12 Hours) Vital Signs Temp Pulse Pulse Pulse Pulse Resp BP 03/07/23 02:44 36.8 C 83 18 169/65 H 03/07/23 02:00 87 03/06/23 22:42 36.4 C L 95 H 16 159/79 H 03/06/23 21:55 90 03/06/23 21:00 03/06/23 20:05 36.8 C 96 H 18 160/68 H 03/06/23 18:20 36.6 C 90 18 163/75 H Pulse Ox O2 Del Method 03/07/23 02:44 100 Room Air 03/07/23 02:00 03/06/23 22:42 97 Room Air 03/06/23 21:55 03/06/23 21:00 Room Air 03/06/23 20:05 98 Room Air 03/06/23 18:20 100 Room Air PG Care Time/CCT Total # of Minutes Spent Total Time Spent with Patient: Total time spent is greater than 50% in coordination of care (as documented) at patient's floor/unit and/or counseling patient: Coding Level of Care Code 80160 Post Operative Follow-Up Diagnoses H/O right hemicolectomy Z90.49
[2023-03-07 06:43] LABS: Basophils # (auto) 0.02 K/uL (0.00-0.20); Basophils % (auto) 0.2 %; Eosinophils # (auto) 0.17 K/uL (0.00-0.50); Eosinophils % (auto) 1.8 %; Hematocrit (blood only) 21.6 % (37.0-47.0); Immature Granulocytes # (auto) 0.32 K/uL (0.01-0.20); Immature Granulocytes % (auto) 3.4 %; Lymphocytes # (auto) 0.63 K/uL (1.20-3.40); Lymphocytes % (auto) 6.7 %; Mean Corpuscular Hemoglobin 28.1 pg (25.0-34.0); Mean Corpuscular Hgb Conc 32.4 g/dL (32.0-36.0); Mean Corpuscular Volume 86.7 fL (80.0-100.0); Mean Platelet Volume 11.2 fL (9.4-12.4); Monocytes # (auto) 0.85 K/uL (0.11-0.59); Neutrophils # (auto) 7.47 K/uL (1.40-6.50); Neutrophils % (auto) 78.9 %; Platelet Count 368 K/uL (130-400); RDW Coefficient of Variation 15.9 % (11.5-14.5); RDW Standard Deviation 50.3 fL (36.4-46.3); Red Blood Count 2.49 M/uL (4.20-5.40); White Blood Count 9.46 K/ul (4.8-10.8)
--- NOTE | 2023-03-07 06:59 | Hospitalist Progress Note ---
Date of Service March 07, 2023 Assessment & Plan (1) Elevated blood pressure reading: Plan: Pt is an 87 y/o female with PMH of DM, colon cancer, TIA (2021), dementia, chronic low back pain, CKD, and HLD presenting to the hospital for right hemicolectomy. Initial surgery 02/06. Returned to the OR 02/19 for ischemic bowel resection and ileostomy creation. #Severe Sepsis with VRE and ESBL #Leukocytosis -Patient with clinical deterioration and severe sepsis starting 02/16 secondary to bowel leak. -Patient now s/p ischemic bowel resection with ileostomy creation 02/19. Peritoneal fluid growing VRE E. faecium and ESBL. - Open wound noted on abdomen; plan for wound vac completed 14 days of coverage for cultured bacteria #ARCELIA on CKD IV #ATN -Baseline Cr ~ 1.6-1.7. -overall improving - nephrology consulted an appreciate recommendations #Anemia #Coagulability #Bleeding #Heme Positive Stool -no surprise that she would have oozing given abdominal wound, anastamosis, etc -continue to follow, no hemorrhage, risk/benefit favors pharmacologic DVT proph; transfuse PRN - Hbg= 7 this morning, repeat qAM and transfuse below 7 #Elevated BP -Patient with elevated blood pressure most likely secondary to recent surgery and pain. -Was initially started on amlodipine 5 mg during this admission. -We will hold for now due to risk of becoming hypotensive, more lethargic --> want to maintain perfusion; spikes in BP have been asymptomatic #A fib with RVR -Patient without a history of atrial fibrillation, had a bout on 02/20. -Heparin SQ BID for VTE ppx. #Parental Nutrition -Pharmacy/Dietary on board. TPN through central access. -Ostomy functioning. 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 -Completed 10 day course of doxycycline #Dementia -Continue Seroquel 12.5 mg and donepezil 5 mg QHS #Insulin Dependent Diabetes Mellitus -SSI while hospitalized. Resume home dosing on discharge #Depression -Continue home vortioxetine #OAB -oxybutynin currently being held; if continues to tolerate PO intact could resume #HLD -Statin held while on daptomycin #History of TIA - clopidogrel currently being held since surgery, if she continues to remain stable would consider resuming Code Status: Patient does have a living will stating DNR/DNI etc. This does not currently apply as patient presented for elective procedure. Full code in the setting of complications from recent procedure. Lines: PIV x1, tunneled dialysis catheter, Vera Diet: ostomy functioning, full DVT ppx: heparin BID Dispo: Plan for rehab once medically stable, anticipate end of this week (2) Chronic kidney disease, stage IV (severe): (3) Anastomotic leak of intestine: (4) Atrial fibrillation with rapid ventricular response: (5) On parenteral nutrition: Admission and Anticipated Discharge Date Admission Date: February 06, 2023 Supervising Physician Co-Signing Physician Notes I personally examined the patient and verified all kinsey points of history and exam, discussed case, and agree with decision making with Dr Gr Generally feeling weak and malaise, but no acute complaints. Sitting up in bedrequired significant assistance for this. Vitals noted, in general she is awake and alert pleasant no distress. HEENT normocephalic atraumatic mucous membranes moist. Breathing unlabored no accessory muscle use good effort. Skin shows no rashes no pallor or icterus. Diffuse edema as before. Neuro without focal deficits. Severe sepsis sec to Anastomotic leak - ESBL and VRE in peritoneal fluid -now has completed 14 days of antibiotics Anemia - s/p total 6PRBC now. Suspect anemia is a little bit dilution, little bit of oozing, and a little bit slow hematopoiesisno overt hemorrhage. Will likely need ongoing transfusions, but at the same time, risk/benefit favors continuing pharmacologic DVT prophylaxis given that a DVT in the situation could be catastrophic, and at the very least would mandate escalation of anticoagulation from prophylactic to therapeutic dosing. Heme positive stool - no concern of active bleeding. see above. continue PPI. ARCELIA - definitely overall improved, no acute further need for dialysis, continue careful fluid management and vigilance. Appreciate nephrology assistance Malnutrition - continue TPN. cautiously advance diet, paying attention aspiration risk, ultimately goal will be for p.o. intake to provide all of her nutrition needs at which time TPN can be stopped Swallowing dysfunction due to prolonged NPO status - mostly appears to have difficulty due to fatigue - advance diet with caution, follow for aspiration Vera/tunnel cath/ostomy Heparin SQ for DVT prophsee above, does appear to have oozing from GI tract anastomosis as well as wound, but while those have contributed to the need for periodic transfusions, having a DVT at this phase of recovery could potentially have catastrophic consequences wound vac for abdominal wound anticipate [employer] in near future, likely early next week so that they can have adequate manpower to meet her needs Subjective No events overnight. COmplaining of low back pain this similar. States that it is similar to chronic low back pain she gets Review of Systems Review of Systems: As per above Physical Exam Physical Exam: Constitutional: well-appearing, no acute distress HEENT: NCAT, no conjunctival injection CV: regular rhythm, no murmur appreciated, extremities well-perfused, trace LE edema. +2 pitting edema left UE. Resp: CTABL, no wheezes/rales/rhonchi appreciated, no increased work of breathing GI: ostomy in place with good output, open wound noted on abdomen with some mild surrounding erythema MSK: no gross deformities appreciated Skin: warm, dry, no rash appreciated Neuro: alert, oriented, no focal neurologic deficit appreciated Results & Data Results & Data Vital Signs (Past 12 Hours) Vital Signs Temp Pulse Pulse Pulse Pulse Resp BP 03/07/23 02:44 36.8 C 83 18 169/65 H 03/07/23 02:00 87 03/06/23 22:42 36.4 C L 95 H 16 159/79 H 03/06/23 21:55 90 03/06/23 21:00 03/06/23 20:05 36.8 C 96 H 18 160/68 H Pulse Ox O2 Del Method 03/07/23 02:44 100 Room Air 03/07/23 02:00 03/06/23 22:42 97 Room Air 03/06/23 21:55 03/06/23 21:00 Room Air 03/06/23 20:05 98 Room Air Resident Activity Tracking Resident Involvement: Resident Care Provided Care Provided: Adult Hospital Medicine
[2023-03-07 07:12] LABS: Rouleaux 1+
[2023-03-07 07:31] LABS: Albumin Globulin Ratio 0.8 (0.9-2); Albumin Level 2.1 gm/dl (3.4-5.0); BUN Creatinine Ratio 56.3 (10-20); Bilirubin,Total 0.5 mg/dl (0.2-1.0); Calcium 9.2 mg/dl (8.6-10.3); Creatinine Clr Calc Pharmacy 16.3 ml/min; Est GFR (African American) 19.7 ml/min; Globulin 2.8 gm/dl (2.5-4.0); Magnesium 1.8 mg/dl (1.7-2.4); Phosphorus 2.8 mg/dl (2.5-4.9); Potassium 3.7 mmol/L (3.5-5.1); Total Protein 4.9 gm/dl (6.0-8.3)
--- NOTE | 2023-03-07 08:48 | Nephrology Progress Note ---
Date of Service March 07, 2023 Assessment & Plan (1) Acute kidney injury: Plan: * Non-oliguric. UO 1675 cc last 24 hours. Creatinine is trending down, 2.4 this am. Patient is oxygenating well on RA. She appears to be entering recovery phase of kidney injury. No acute indication for HD at this time * Will provide one dose Furosemide 40 mg IV to promote diuresis. Patient remains net 29 L volume + and has dependent edema * Rt IJ HD catheter placed 02/[address] Mary. Leave catheter in place for now * Document strict I/O's and repeat metabolic profile tomorrow AM. (2) Chronic kidney disease, stage III (moderate): Plan: * CKD stage G3/A2. Baseline Cr 1.3-1.6. CKD attributed to hypertension and DKD. (3) Anemia: Plan: * h/o GIB. billing and accounting staff assistant this am reports that stool remains FOBT+ * H&H relatively stable (Hgb 7.0 this am). Recommend PRBC transfusion support PRN to maintain Hgb 7.0 or greater (4) Anastomotic leak of intestine: Plan: * Adenocarcinoma of the colon s/p R open hemicolectomy 02/06/23. On post-op day #10 developed a signs of sepsis. Exploratory laparotomy revealed an anastomotic leak/perforation and had resection of the anastomosis w/ creation of an end ileostomy. * Remains on parental nutrition. Admission and Anticipated Discharge Date Admission Date: February 06, 2023 Subjective Mrs. Hull was evaluated in her hospital room this morning. She c/o fatigue but voiced no other medical concerns. She was breathing comfortably flat in bed on RA. Review of Systems Constitutional: no fever Eyes: no problem reported Ear, Nose, Mouth, Throat: no problem reported Respiratory: no cough and no dyspnea Cardiovascular: no chest pain Gastrointestinal: no nausea and no vomiting Physical Exam Constitutional: + frail appearing Eyes: PERRL, conjunctivae normal, anicteric sclerae ENMT: external ear and nose normal, oropharynx normal Neck: trachea midline, no thyromegaly R IJ TCC remains in place Respiratory: normal respiratory effort, lungs clear to auscultation Cardiovascular: Rate/Rhythm: regular rate and regular rhythm Extremities: + edema (2+ dependent edema) Gastrointestinal (Abdomen): Inspection/Auscultation: + hypoactive bowel sounds Skin: no rashes, warm and dry Neurologic: Speech / Cognition: normal speech and normal cognition Results & Data Vital Signs (Past 12 Hours) Vital Signs Temp Pulse Pulse Pulse Pulse Resp BP 03/07/23 08:05 36.4 C L 83 20 03/07/23 02:44 36.8 C 83 18 169/65 H 03/07/23 02:00 87 03/06/23 22:42 36.4 C L 95 H 16 159/79 H 03/06/23 21:55 90 03/06/23 21:00 BP Pulse Ox O2 Del Method 03/07/23 08:05 183/82 H 100 Room Air 03/07/23 02:44 100 Room Air 03/07/23 02:00 03/06/23 22:42 97 Room Air 03/06/23 21:55 03/06/23 21:00 Room Air Laboratory Results Laboratory Results - last 24 hr 03/06/23 03/06/23 03/06/23 11:19 16:07 20:20 WBC RBC Hgb Hct MCV MCH MCHC RDW Std Deviation RDW Coeff of Mari Plt Count MPV Immature Gran % (Auto) Neut % (Auto) Lymph % (Auto) Grand % (Auto) Eos % (Auto) Baso % (Auto) Neut # (Auto) Lymph # (Auto) Grand # (Auto) Eos # (Auto) Baso # (Auto) Immature Gran # (Auto) Rouleaux Sodium Potassium Chloride Carbon Dioxide Anion Gap BUN Creatinine Est Cr Clr Drug Dosing Est GFR ( Amer) Est GFR (Non-Af Amer) BUN/Creatinine Ratio Glucose POC Glucose 140 H 196 H 200 H Calcium Phosphorus Magnesium Total Bilirubin AST ALT Alkaline Phosphatase Total Protein Albumin Globulin Albumin/Globulin Ratio 03/07/23 03/07/23 06:21 07:22 WBC 9.46 RBC 2.49 L Hgb 7.0 L Hct 21.6 L MCV 86.7 MCH 28.1 MCHC 32.4 RDW Std Deviation 50.3 H RDW Coeff of Mari 15.9 H Plt Count 368 MPV 11.2 Immature Gran % (Auto) 3.4 Neut % (Auto) 78.9 Lymph % (Auto) 6.7 Grand % (Auto) 9.0 Eos % (Auto) 1.8 Baso % (Auto) 0.2 Neut # (Auto) 7.47 H Lymph # (Auto) 0.63 L Grand # (Auto) 0.85 H Eos # (Auto) 0.17 Baso # (Auto) 0.02 Immature Gran # (Auto) 0.32 H Rouleaux 1+ Sodium 142 Potassium 3.7 Chloride 110 H Carbon Dioxide 24 Anion Gap 8 BUN 138 H Creatinine 2.45 H Est Cr Clr Drug Dosing 16.3 Est GFR ( Amer) 19.7 Est GFR (Non-Af Amer) 17.0 BUN/Creatinine Ratio 56.3 H Glucose 145 H POC Glucose 180 H Calcium 9.2 Phosphorus 2.8 Magnesium 1.8 Total Bilirubin 0.5 AST 22 ALT 15 Alkaline Phosphatase 362 H Total Protein 4.9 L Albumin 2.1 L Globulin 2.8 Albumin/Globulin Ratio 0.8 L PG Care Time/CCT Total # of Minutes Spent Total Time Spent with Patient: Total time spent is greater than 50% in coordination of care (as documented) at patient's floor/unit and/or counseling patient: Coding Level of Care Code 69244 SUB INP/OBS CARE 3/50MIN Diagnoses Acute kidney injury N17.9 Chronic kidney disease, stage III (moderate) N18.30 Anemia D64.9 Anemia type: unspecified type Anastomotic leak of intestine K91.89 (3) Anemia Anemia type: unspecified type Qualified Code(s): D64.9 - Anemia, unspecified
[2023-03-07] MEDS ORDERED: FUROSEMIDE 40 MG/4 ML VIAL IV ONE (08:49)
[2023-03-07] MEDS ORDERED: LIDOCAINE 5% 1 PATCH TD SCH (08:51)
[2023-03-07] MEDS ORDERED: ACETAMINOPHEN 500 MG TAB PO PRN (08:51)
[2023-03-07] MEDS: CHOLECALCIFEROL 1,000 UNITS 25 MCG TAB PO SCH (10:21)
[2023-03-07] MEDS: ASCORBIC ACID 500 MG TAB PO SCH (10:21)
[2023-03-07] MEDS: HEPARIN SOD 5,000 UNIT/0.5 ML VIAL SQ SCH ×2 (10:21→20:13)
[2023-03-07] MEDS: PANTOprazole 40 MG in SYRINGE 0 ML IV SCH ×2 (10:33→20:19)
[2023-03-07] MEDS: INSULIN ASPART PER UNIT CHARGE SC SCH ×4 (10:38→20:14)
[2023-03-07] MEDS: LANTUS PER UNIT CHARGE SC SCH ×2 (10:38→21:25)
--- NOTE | 2023-03-07 13:21 | Billing Data ---
Date of Service March 07, 2023 Coding Level of Care Code 20173 SUB INP/OBS CARE MIN
--- NOTE | 2023-03-07 13:22 | Billing Data ---
Date of Service March 07, 2023 Coding Level of Care Code 96811 SUB INP/OBS CARE MIN
[2023-03-07] MEDS ORDERED: ACETAMINOPHEN 1,000 MG/100 ML VIAL IV STA (15:48)
[2023-03-07] MEDS ORDERED: CENTRAL TPN IV SCH (16:00)
[2023-03-07] MEDS ORDERED: [UNRECOGNIZED DRUG - OTHER] IV SCH (16:00)
[2023-03-07] MEDS: DONEPEZIL HCL 5 MG TAB PO SCH (20:13)
[2023-03-07] MEDS: QUEtiapine FUMARATE 25 MG TABLET PO SCH (20:13)
[2023-03-07] MEDS: VORTIOXETINE HYDROBROMIDE 10 MG PO SCH (20:18)
[2023-03-07] MEDS ORDERED: traMADol HCL 50 MG TABLET PO STA (21:01)
--- NOTE | 2023-03-08 05:27 | Surgery Progress Note ---
Date of Service March 08, 2023 Assessment & Plan (1) H/O right hemicolectomy: Plan: Status post right hemicolectomy on 02/06/2023, exploratory laparotomy with creation of ileostomy on 02/19/2023 Continue analgesics as needed Continue full liquid diet and continue TPN until oral intake can make necessary caloric needs Patient has noted anemiaprimary service notes that they will consider transfusion if hemoglobin drops below 7 Continue PPI for GI prophylaxis Continue VAC to suction Course of antibiotics antibiotics in the form of meropenem and daptomycin have been completed Continue wound VAC on suction Nephrology input notedrenal replacement therapy is not felt to be needed as patient is in the recovery phase of her acute kidney injury. Check a.m. labs when available Continue mobilization attempts Case management is following as patient will require need rehab placement Admission and Anticipated Discharge Date Admission Date: February 06, 2023 Supervising Physician Co-Signing Physician Notes Patient discussed with Gómez Ferrara, labs reviewed, agree with above. Slight drift down in her H&H, decision to transfuse per medicine. No other significant changes. Awaiting placement. Subjective Patient is currently resting in bed. She denies any nausea or vomiting. She has some generalized abdominal pain as above as noted previously. I discussed with the maintenance supervisor 2nd shift RN attending the patient and there have been no acute issues overnight. She does note that the patient had somewhat more in the way of oral intake. There have been no recorded fevers, shakes, or chills. Her ostomy continues to function. There is been no reported nausea or vomiting. Physical Exam Gastrointestinal (Abdomen): Abdomen is soft and nondistended. Wound VAC is in place and maintaining suction appropriately. Ostomy appears to be functioning appropriately with some melanotic appearing stool in the collection bag. Results & Data Vital Signs (Past 12 Hours) Vital Signs Temp Pulse Pulse Pulse Resp BP Pulse Ox 03/08/23 03:53 36.8 C 84 17 170/88 H 96 03/08/23 00:02 36.3 C L 84 16 158/72 H 98 03/07/23 23:00 79 03/07/23 21:55 64 03/07/23 19:00 36.4 C L 70 16 147/65 H 99 O2 Del Method 03/08/23 03:53 Room Air 03/08/23 00:02 Room Air 03/07/23 23:00 03/07/23 21:55 03/07/23 19:00 Room Air PG Care Time/CCT Total # of Minutes Spent Total Time Spent with Patient: Total time spent is greater than 50% in coordination of care (as documented) at patient's floor/unit and/or counseling patient: Coding Level of Care Code 98793 Post Operative Follow-Up Diagnoses H/O right hemicolectomy Z90.49
[2023-03-08] MEDS: ACETAMINOPHEN 500 MG TAB PO PRN ×2 (05:36→17:15)
--- NOTE | 2023-03-08 06:34 | Hospitalist Progress Note ---
Date of Service March 08, 2023 Assessment & Plan (1) Elevated blood pressure reading: Plan: Pt is an 87 y/o female with PMH of DM, colon cancer, TIA (2021), dementia, chronic low back pain, CKD, and HLD presenting to the hospital for right hemicolectomy. Initial surgery 02/06. Returned to the OR 02/19 for ischemic bowel resection and ileostomy creation. #Severe Sepsis with VRE and ESBL #Leukocytosis -Patient with clinical deterioration and severe sepsis starting 02/16 secondary to bowel leak. -Patient now s/p ischemic bowel resection with ileostomy creation 02/19. Peritoneal fluid growing VRE E. faecium and ESBL. - Open wound noted on abdomen; plan for wound vac completed 14 days of coverage for cultured bacteria #ARCELIA on CKD IV #ATN -Baseline Cr ~ 1.6-1.7. -overall improving; creatine down to 2.25 03/08 - nephrology consulted an appreciate recommendations - Per nephrology dieresis with 40 lasix IV this morning #Anemia #Coagulability #Bleeding #Heme Positive Stool -no surprise that she would have oozing given abdominal wound, anastamosis, etc -continue to follow, no hemorrhage, risk/benefit favors pharmacologic DVT proph; transfuse PRN - Hbg= 6.6 this morning, plan to transfuse 1 unit pRBC #Elevated BP -Patient with elevated blood pressure most likely secondary to recent surgery and pain. -Was initially started on amlodipine 5 mg during this admission. -We will hold for now due to risk of becoming hypotensive, more lethargic --> want to maintain perfusion; spikes in BP have been asymptomatic #A fib with RVR -Patient without a history of atrial fibrillation, had a bout on 02/20. -Heparin SQ BID for VTE ppx. #Parental Nutrition -Pharmacy/Dietary on board. TPN through central access. -Ostomy functioning. 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 -Completed 10 day course of doxycycline #Dementia -Continue Seroquel 12.5 mg and donepezil 5 mg QHS #Insulin Dependent Diabetes Mellitus -SSI while hospitalized. Resume home dosing on discharge #Depression -Continue home vortioxetine #OAB -oxybutynin currently being held; if continues to tolerate PO intact could resume #HLD -Statin held while on daptomycin #History of TIA - clopidogrel currently being held since surgery, if she continues to remain stable would consider resuming Code Status: Patient does have a living will stating DNR/DNI etc. This does not currently apply as patient presented for elective procedure. Full code in the setting of complications from recent procedure. Lines: PIV x1, tunneled dialysis catheter, Vera Diet: ostomy functioning, full DVT ppx: heparin BID Dispo: Plan for rehab once medically stable, anticipate beginning of this week (2) Chronic kidney disease, stage IV (severe): (3) Anastomotic leak of intestine: (4) Atrial fibrillation with rapid ventricular response: (5) On parenteral nutrition: Admission and Anticipated Discharge Date Admission Date: February 06, 2023 Supervising Physician Co-Signing Physician Notes I personally examined the patient and verified all kinsey points of history and exam, discussed case, and agree with decision making with Dr Gr Still very weak and fatigued, did sit up for about a minute yesterday. Vitals noted, in general she is awake and alert pleasant no distress. HEENT normocephalic atraumatic mucous membranes moist. Breathing unlabored no accessory muscle use good effort. Skin shows no rashes no pallor or icterus. Diffuse edema as before. Neuro without focal deficits. Severe sepsis sec to Anastomotic leak - ESBL and VRE in peritoneal fluid -now has completed 14 days of antibiotics, off antibiotics for few days and no signs of worsening Anemia - s/p total 7PRBC now. Suspect anemia is a little bit dilution, little bit of oozing, and a little bit slow hematopoiesisno overt hemorrhage. Will likely need ongoing transfusions, but at the same time, risk/benefit favors continuing pharmacologic DVT prophylaxis given that a DVT in the situation could be catastrophic, and at the very least would mandate escalation of anticoagulation from prophylactic to therapeutic dosing. Heme positive stool - no concern of active bleeding. see above. ARCELIA - definitely overall improved and creatinine continues to trend in the right direction, no acute further need for dialysis, continue careful fluid management and vigilance. Appreciate nephrology assistance Malnutrition - continue TPN. cautiously advance diet as tolerated, paying attention aspiration risk, ultimately goal will be for p.o. intake to provide all of her nutrition needs at which time TPN can be stopped Swallowing dysfunction due to prolonged NPO status - mostly appears to have difficulty due to fatigue - advance diet with caution, follow for aspiration Vera/tunnel cath/ostomy Heparin SQ for DVT prophsee above, does appear to have oozing from GI tract anastomosis as well as wound, but while those have contributed to the need for periodic transfusions, having a DVT at this phase of recovery could potentially have catastrophic consequences wound vac for abdominal wound anticipate [facility] in near future, likely early next week so that they can have adequate manpower to meet her needs Subjective Pt seen at bedside this morning. Tolerated some boost for breakfast. Appears a little bit more comfortable this morning. Hbg= 6.6 and discussed need for transf usion, she was agreeable. Review of Systems Review of Systems: As per above Physical Exam Physical Exam: Constitutional: well-appearing, no acute distress HEENT: NCAT, no conjunctival injection CV: regular rhythm, no murmur appreciated, extremities well-perfused, trace LE edema. +1 UE B/L. Resp: CTABL, no wheezes/rales/rhonchi appreciated, no increased work of breathing GI: ostomy in place with good output, wound vac in place MSK: no gross deformities appreciated Skin: warm, dry, no rash appreciated Neuro: alert, oriented, no focal neurologic deficit appreciated Results & Data Results & Data Vital Signs (Past 12 Hours) Vital Signs Temp Pulse Pulse Pulse Resp BP Pulse Ox 03/08/23 03:53 36.8 C 84 17 170/88 H 96 03/08/23 00:02 36.3 C L 84 16 158/72 H 98 03/07/23 23:00 79 03/07/23 21:55 64 03/07/23 19:00 36.4 C L 70 16 147/65 H 99 O2 Del Method 03/08/23 03:53 Room Air 03/08/23 00:02 Room Air 03/07/23 23:00 03/07/23 21:55 11/25/23 19:00 Room Air Resident Activity Tracking Resident Involvement: Resident Care Provided Care Provided: Adult Hospital Medicine
[2023-03-08 07:08] LABS: Hematocrit (blood only) 19.7 % (37.0-47.0); Hemoglobin 6.6 g/dl (12.0-16.0); Mean Corpuscular Hemoglobin 28.7 pg (25.0-34.0); Mean Corpuscular Hgb Conc 33.5 g/dL (32.0-36.0); Mean Corpuscular Volume 85.7 fL (80.0-100.0); Mean Platelet Volume 11.2 fL (9.4-12.4); Platelet Count 309 K/uL (130-400); RDW Coefficient of Variation 15.9 % (11.5-14.5); RDW Standard Deviation 48.5 fL (36.4-46.3); White Blood Count 8.82 K/ul (4.8-10.8)
[2023-03-08 07:27] LABS: Basophils # (auto) 0.02 K/uL (0.00-0.20); Basophils % (auto) 0.2 %; Eosinophils # (auto) 0.22 K/uL (0.00-0.50); Eosinophils % (auto) 2.5 %; Immature Granulocytes # (auto) 0.38 K/uL (0.01-0.20); Immature Granulocytes % (auto) 4.3 %; Lymphocytes # (auto) 0.66 K/uL (1.20-3.40); Lymphocytes % (auto) 7.5 %; Monocytes # (auto) 0.95 K/uL (0.11-0.59); Monocytes % (auto) 10.8 %; Neutrophils # (auto) 6.59 K/uL (1.40-6.50); Neutrophils % (auto) 74.7 %; Polychromasia 1+
[2023-03-08 07:39] LABS: BUN Creatinine Ratio 57.3 (10-20); Calcium 9.3 mg/dl (8.6-10.3); Creatinine Clr Calc Pharmacy 17.1 ml/min; Est GFR (African American) 21.9 ml/min; Est GFR (Non-African American) 18.9 ml/min; Magnesium 1.8 mg/dl (1.7-2.4); Potassium 3.7 mmol/L (3.5-5.1)
[2023-03-08] MEDS ORDERED: SODIUM CHLORIDE 0.9% 250 ML IV PRN ×2 (07:42→07:46)
[2023-03-08] MEDS ORDERED: FUROSEMIDE 40 MG/4 ML VIAL IV ONE (08:55)
--- NOTE | 2023-03-08 08:58 | Nephrology Progress Note ---
Date of Service March 08, 2023 Assessment & Plan (1) Acute kidney injury: Plan: * Non-oliguric. UO 2045 cc last 24 hours. Creatinine is trending down, 2.4-->2.2 this am. Patient is oxygenating well on RA. She appears to be entering recovery phase of kidney injury. No acute indication for HD at this time * Will provide Furosemide 40 mg IV x1 this am to continue diuresis * Rt IJ HD catheter placed 02/[address] Mary. Leave catheter in place for now * Document strict I/O's and repeat metabolic profile tomorrow AM. (2) Chronic kidney disease, stage III (moderate): Plan: * CKD stage G3/A2. Baseline Cr 1.3-1.6. CKD attributed to hypertension and DKD. (3) Anemia: Plan: * h/o GIB. staff genetic counselor this am reports that stool remains FOBT+ * H&H continues to trend down. Primary service has ordered blood transfusion this morning (4) Anastomotic leak of intestine: Plan: * Adenocarcinoma of the colon s/p R open hemicolectomy 02/06/23. On post-op day #10 developed a signs of sepsis. Exploratory laparotomy revealed an anastomotic leak/perforation and had resection of the anastomosis w/ creation of an end ileostomy. * Remains on parental nutrition. Admission and Anticipated Discharge Date Admission Date: February 06, 2023 Subjective Mrs. Hull was evaluated in her hospital room this morning. She c/o fatigue but voiced no other medical concerns. She was breathing comfortably flat in bed on RA. Review of Systems Constitutional: no fever Eyes: no problem reported Ear, Nose, Mouth, Throat: no problem reported Respiratory: no cough and no dyspnea Cardiovascular: no chest pain Gastrointestinal: no nausea and no vomiting Physical Exam Constitutional: + frail appearing Eyes: PERRL, conjunctivae normal, anicteric sclerae ENMT: external ear and nose normal, oropharynx normal Neck: trachea midline, no thyromegaly Respiratory: normal respiratory effort, lungs clear to auscultation Cardiovascular: RRR, no murmur, no edema Rate/Rhythm: regular rate and regular rhythm Extremities: + edema (2+ dependent edema) Gastrointestinal (Abdomen): Inspection/Auscultation: + hypoactive bowel sounds Skin: no rashes, warm and dry Neurologic: Speech / Cognition: normal speech and normal cognition Results & Data Vital Signs (Past 12 Hours) Vital Signs Temp Pulse Pulse Pulse Resp BP BP 03/08/23 07:29 79 18 150/66 H 03/08/23 07:09 77 03/08/23 03:53 36.8 C 84 17 170/88 H 03/08/23 00:02 36.3 C L 84 16 158/72 H 03/07/23 23:00 79 03/07/23 21:55 64 Pulse Ox O2 Del Method 03/08/23 07:29 99 Room Air 03/08/23 07:09 03/08/23 03:53 96 Room Air 03/08/23 00:02 98 Room Air 03/07/23 23:00 03/07/23 21:55 Laboratory Results Laboratory Tests 03/06/23 03/07/23 03/07/23 06:55 06:21 06:21 WBC 9.46 Hgb 7.0 L Hct 21.6 L Plt Count 368 Sodium 142 Potassium 3.7 Chloride 110 H Carbon Dioxide 24 BUN 129 H 138 H Creatinine 2.45 H Glucose 145 H Calcium 9.2 Phosphorus 2.8 Magnesium 1.8 Albumin 2.1 L 03/08/23 06:20 WBC 8.82 Hgb 6.6 L* Hct 19.7 L* Plt Count 309 Sodium 140 Potassium 3.7 Chloride 108 H Carbon Dioxide 25 BUN 129 H Creatinine 2.25 H Glucose 172 H Calcium 9.3 Phosphorus 3.0 Magnesium 1.8 Albumin PG Care Time/CCT Total # of Minutes Spent Total Time Spent with Patient: Total time spent is greater than 50% in coordination of care (as documented) at patient's floor/unit and/or counseling patient: Coding Level of Care Code 63187 SUB INP/OBS CARE 3/50MIN Diagnoses Acute kidney injury N17.9 Chronic kidney disease, stage III (moderate) N18.30 Anemia D64.9 Anemia type: unspecified type Anastomotic leak of intestine K91.89 (3) Anemia Anemia type: unspecified type Qualified Code(s): D64.9 - Anemia, unspecified
[2023-03-08] MEDS: CHOLECALCIFEROL 1,000 UNITS 25 MCG TAB PO SCH (09:01)
[2023-03-08] MEDS: ASCORBIC ACID 500 MG TAB PO SCH (09:01)
[2023-03-08] MEDS: INSULIN ASPART PER UNIT CHARGE SC SCH ×4 (09:05→20:33)
[2023-03-08] MEDS: HEPARIN SOD 5,000 UNIT/0.5 ML VIAL SQ SCH ×2 (09:06→20:31)
[2023-03-08] MEDS: PANTOprazole 40 MG in SYRINGE 0 ML IV SCH ×2 (09:06→20:33)
[2023-03-08] MEDS: LANTUS PER UNIT CHARGE SC SCH ×2 (09:06→20:34)
--- NOTE | 2023-03-08 09:56 | Pharmacy Report ---
Pharmacy Glycemic Short Note 2 - Date of Service March 08, 2023 - Glycemic Short BSG Results (Last 24 hours): 03/07/23 03/07/23 03/07/23 11:01 16:12 20:08 Glucose POC Glucose 219 H 104 H 84 03/07/23 03/08/23 03/08/23 21:21 06:20 07:31 Glucose 172 H POC Glucose 114 H 229 H OUTPATIENT ANTIDIABETIC REGIMEN: * Lantus 20 units SC PM * HbA1c = 8% (02/02/23) ASSESSMENT: 03/08: * Keren received 28 units of insulin yesterday (12 basal + 6 bolus + 10 units in TPN bag). BSGs were: 156-040-002-84 mg/dL. * BSG this AM is 229 mg/dL. Remains on TPN at goal. PO intake was a little better yesterday. This may account for high BSG this AM. * Will increase amount of insulin in the TPN bag today. No change to Lantus. Will add a carb ratio to Novolog to cover carbs patient may now be eating with diet ordered. 03/06: * BSGs yesterday were [phone] mg/dL. Patient received 12 units of Lantus + 1 unit of Novolog (Given at HS). There are 10 units of IV insulin in her TPN. Dextrose remains stable at 185 grams/day. * Fasting today was 108 mg/dL. This is most likely due to TPN being paused overnight. This raises concern that hyperglycemia from TPN is being covered with basal insulin. * Hold Lantus this AM and switch to BID dosing for more control. It may be reasonable to increase insulin in TPN. * Continue Novolog. 03/05: * BSGs yesterday were [phone] mg/dL. Patient received 12 units of Lantus and 4 units of bolus. There are 10 units of insulin in the TPN. * Continue TPN + 10 units in bag. * BSGs today are 124-131 mg/dL so continue regimen. 03/02: * BSGs [phone]/dL the last 24h. Received 12units of SQ basal and 10 units IV insulin in TPN, 8 units of bolus. * Diet advanced to full liquids. * Given stable BSGs over several days, TPN macros were advanced to goal starting this evening. Will trend BSGs. No additional insulin dose adjustments for now. 03/01: * Keren received 27 units of insulin yesterday, 10 basal + 10 in TPN bag + 7 bolus. BSGs were: 690-325-794-159 mg/dL. * Fasting up slightly to 176 mg/dL today. Will increase basal slightly today. * No change to bolus or amount of insulin in TPN bag (Dextrose = 168 g/day). Stressors stable. 02/27: * BSGs downtrending. Lantus reduced to 15 units of 02/26, Fasting 93 mg/dL- received 15 units this morning. Will reduce to 10 units tomorrow (reassess). * Dextrose content increased in TPN today but continued same 10 units in bag. Patient is to received HD today. * Continue to monitor, loosened correction factor. 02/25: * BSGs above goal the last 24h: [phone]/dL. Received 25 units of basal and 16 units of bolus insulin yesterday. * HD cath clotted - unable to dialyze today. TPN continues to run. NPO. * Lantus increased to 20 units given elevated fasting BSGs. Continued 10 units of insulin in TPN for now (unclear of future plan for PN given access issue). Novolog correctional tightened. TPN dextrose taken to goal central access (118gm CHO). 02/24: * Patient's BSGs yesterday were [phone] mg/dL. Today's AM BSGs were 240-212-146 mg/dL. * Patient did get 2 hrs of HD yesterday and planned for 3hr HD today. * Increased SC Lantus dose given persistently BSGs. However after BSG normalized at lunchtime and as patient receiving another round of HD today, will reduce the amount of insulin the TPN bag from 20 to 10. If BSGs trend up again can consider tightening NovoLog CF. * Will keep TPN macros the same today until BSGs somewhat consistently controlled. 02/23: * Patient's blood sugars elevated again today, 0 units of insulin in PPN bag with 50 gm of dextrose * Converting to central parenteral nutrition- dextrose will increase- will add 20 units of insulin to the bag (patient was used ~19 units of correctional since resuming TPN). Adjusted checks back to q4 as this helped previously. * Resumed 10 units of lantus qAM (held 02/22 d/t NPO status and ppn held until 1600). PLAN FOR INPATIENT GLYCEMIC CONTROL: * Basal insulin * Lantus 6 units SC BID * Bolus insulin * NovoLog per scale ACHS or Q4hrs while NPO * Goal Range: Low 110 mg/dL - High 140 mg/dL * Correction Factor: 20 mg/dL/unit * Carb Ratio: 10 g CHO/unit * TPN: 15 units regular insulin
[2023-03-08] MEDS ORDERED: [UNRECOGNIZED DRUG - OTHER] IV SCH (16:00)
[2023-03-08] MEDS ORDERED: CENTRAL TPN IV SCH (16:00)
[2023-03-08 16:12] LABS: Hematocrit (blood only) 21.5 % (37.0-47.0); Hemoglobin 7.2 g/dl (12.0-16.0)
[2023-03-08] MEDS ORDERED: traMADol HCL 50 MG TABLET PO ONE (18:25)
--- NOTE | 2023-03-08 18:42 | Billing Data ---
Date of Service March 08, 2023 Coding Level of Care Code 42792 SUB INP/OBS CARE MIN
[2023-03-08] MEDS: VORTIOXETINE HYDROBROMIDE 10 MG PO SCH (20:33)
[2023-03-09 06:47] LABS: Hematocrit (blood only) 18.7 % (37.0-47.0); Hemoglobin 6.3 g/dl (12.0-16.0); Mean Corpuscular Hemoglobin 28.6 pg (25.0-34.0); Mean Corpuscular Hgb Conc 33.7 g/dL (32.0-36.0); Mean Platelet Volume 11.6 fL (9.4-12.4); Platelet Count 278 K/uL (130-400); RDW Coefficient of Variation 15.3 % (11.5-14.5); RDW Standard Deviation 46.5 fL (36.4-46.3); White Blood Count 9.83 K/ul (4.8-10.8)
[2023-03-09] MEDS ORDERED: SODIUM CHLORIDE 0.9% 250 ML IV PRN (07:00)
--- NOTE | 2023-03-09 07:06 | Hospitalist Progress Note ---
Date of Service March 09, 2023 Assessment & Plan (1) Elevated blood pressure reading: Plan: Pt is an 87 y/o female with PMH of DM, colon cancer, TIA (2021), dementia, chronic low back pain, CKD, and HLD presenting to the hospital for right hemicolectomy. Initial surgery 02/06. Returned to the OR 02/19 for ischemic bowel resection and ileostomy creation. #Severe Sepsis with VRE and ESBL #Leukocytosis -Patient with clinical deterioration and severe sepsis starting 02/16 secondary to bowel leak. -Patient now s/p ischemic bowel resection with ileostomy creation 02/19. Peritoneal fluid growing VRE E. faecium and ESBL. - Open wound noted on abdomen; wound vac in place completed 14 days of coverage for cultured bacteria #ARCELIA on CKD IV #ATN -Baseline Cr ~ 1.6-1.7. -overall improving; creatine down to 2.22 03/09 - nephrology consulted an appreciate recommendations - Per nephrology dieresis with 40 lasix IV this morning #Anemia #Coagulability #Bleeding #Heme Positive Stool -concern for upper GI bleed; GI consulted -Anticoagulation held with concern for acute bleed - Hbg= 6.3 this morning, plan to transfuse 1 unit pRBC #Elevated BP -Patient with elevated blood pressure most likely secondary to recent surgery and pain. -Was initially started on amlodipine 5 mg during this admission. -We will hold for now due to risk of becoming hypotensive, more lethargic --> want to maintain perfusion; spikes in BP have been asymptomatic #A fib with RVR -Patient without a history of atrial fibrillation, had a bout on 02/20. -Heparin SQ BID for VTE ppx currently held with concern for GI bleed #Parental Nutrition -Pharmacy/Dietary on board. TPN through central access. -Ostomy functioning. 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 -Completed 10 day course of doxycycline #Dementia -Continue Seroquel 12.5 mg and donepezil 5 mg QHS #Insulin Dependent Diabetes Mellitus -SSI while hospitalized. Resume home dosing on discharge #Depression -Continue home vortioxetine #OAB -oxybutynin currently being held; if continues to tolerate PO intact could resume #HLD -Statin held while on daptomycin #History of TIA - clopidogrel currently being held Code Status: Patient does have a living will stating DNR/DNI etc. This does not currently apply as patient presented for elective procedure. Full code in the setting of complications from recent procedure. Lines: PIV x1, tunneled dialysis catheter, Vera Diet: NPO pending GI DVT ppx: heparin BID held due to concern for upper GI bleed (2) Chronic kidney disease, stage IV (severe): (3) Anastomotic leak of intestine: (4) Atrial fibrillation with rapid ventricular response: (5) On parenteral nutrition: Admission and Anticipated Discharge Date Admission Date: February 06, 2023 Supervising Physician Co-Signing Physician Notes Also saw the patient confirmed kinsey portions of the clinical history and physical examination. I agree with the impression and plan as noted in her documentation above. Remains weak/fatigued. Continues to have heme positive stools from her ileostomy. Exam 174/80, 87, 18, 36.4, 95% on room air Data Hemoglobin 6.3 BUN 141, creatinine 2.22 Impression and plan Severe sepsis secondary to anastomotic leak History of adenocarcinoma, status post left hemicolectomy ESBL and VRE in peritoneal fluid -now has completed 14 days of antibiotics, off antibiotics for few days and no signs of worsening Anemia Given continued fall despite transfusion, will hold anticoagulation and consult GI Monitor H/H ARCELIA on CKD stage IV/ATN Improving Appreciate nephrology consultation Additional per resident documentation Subjective Pt seen at bedside this morning. Was getting transfusion. Complains of fatigue. Noted concern overnight for streaking of blood in ileostomy. Review of Systems Review of Systems: As per above Physical Exam Physical Exam: Constitutional: well-appearing, no acute distress HEENT: NCAT, no conjunctival injection CV: regular rhythm, no murmur appreciated, extremities well-perfused, trace LE edema. +1 UE B/L. Resp: CTABL, no wheezes/rales/rhonchi appreciated, no increased work of breathing GI: ostomy in place with good output, wound vac in place MSK: no gross deformities appreciated Skin: warm, dry, no rash appreciated Neuro: alert, oriented, no focal neurologic deficit appreciated Results & Data Results & Data Vital Signs (Past 12 Hours) Vital Signs Temp Pulse Pulse Pulse Resp BP Pulse Ox 03/09/23 07:02 36.8 C 91 H 16 171/78 H 98 03/09/23 06:00 85 03/09/23 02:00 36.9 C 87 15 159/69 H 98 03/08/23 22:27 36.9 C 89 16 137/67 100 03/08/23 22:07 90 03/08/23 19:27 36.6 C 93 H 14 166/74 H 100 O2 Del Method 03/09/23 07:02 Room Air 03/09/23 06:00 03/09/23 02:00 Room Air 03/08/23 22:27 Room Air 03/08/23 22:07 03/08/23 19:27 Room Air Resident Activity Tracking Resident Involvement: Resident Care Provided Care Provided: Adult Hospital Medicine
[2023-03-09 07:16] LABS: BUN Creatinine Ratio 63.5 (10-20); Calcium 9.2 mg/dl (8.6-10.3); Creatinine Clr Calc Pharmacy 17.7 ml/min; Est GFR (African American) 22.2 ml/min; Est GFR (Non-African American) 19.2 ml/min; Phosphorus 3.2 mg/dl (2.5-4.9); Potassium 4.6 mmol/L (3.5-5.1)
[2023-03-09] MEDS: LANTUS PER UNIT CHARGE SC SCH ×2 (08:20→20:45)
[2023-03-09] MEDS: INSULIN ASPART PER UNIT CHARGE SC SCH ×5 (08:21→20:46)
[2023-03-09] MEDS: HEPARIN SOD 5,000 UNIT/0.5 ML VIAL SQ SCH (08:22)
[2023-03-09] MEDS: PANTOprazole 40 MG in SYRINGE 0 ML IV SCH ×2 (08:22→20:45)
--- NOTE | 2023-03-09 08:25 | Surgery Progress Note ---
Date of Service March 09, 2023 Assessment & Plan (1) H/O right hemicolectomy: Plan: Kidney function improving. Gastroenterology consulted for likely upper GI bleed. Will hold all anticoagulation for now. She is tolerating full liquid diet. Hopefully we can advance soon and wean her TPN which will help with her fluid overload. Admission and Anticipated Discharge Date Admission Date: February 06, 2023 Subjective Patient seen. She is resting comfortably. I long discussion with her nurse. She continues to have some heme positive stools from her ileostomy. She did eat yesterday and was able to feed herself. Physical Exam Physical Exam: Patient appears comfortable. Ileostomy functioning but there is some dark blackish stool in the bag. Wound VAC is in place. Results & Data Vital Signs (Past 12 Hours) Vital Signs Temp Pulse Pulse Pulse Resp BP BP 03/09/23 08:00 36.7 C 81 16 177/80 H 03/09/23 07:02 36.8 C 91 H 16 171/78 H 03/09/23 06:00 85 03/09/23 02:00 36.9 C 87 15 159/69 H 03/08/23 22:27 36.9 C 89 16 137/67 03/08/23 22:07 90 Pulse Ox O2 Del Method 03/09/23 08:00 100 03/09/23 07:02 98 Room Air 03/09/23 06:00 03/09/23 02:00 98 Room Air 03/08/23 22:27 100 Room Air 03/08/23 22:07 PG Care Time/CCT Total # of Minutes Spent Total Time Spent with Patient: Total time spent is greater than 50% in coordination of care (as documented) at patient's floor/unit and/or counseling patient: Coding Level of Care Code 82767 Post Operative Follow-Up Diagnoses H/O right hemicolectomy Z90.49
--- NOTE | 2023-03-09 08:29 | Nephrology Progress Note ---
Date of Service March 09, 2023 Assessment & Plan (1) Acute kidney injury: Plan: * Non-oliguric. UO 3600 cc last 24 hours. Creatinine is trending down, 2.4-->2.2 this am. Patient is oxygenating well on RA. She is now in the recovery phase of kidney injury. No acute indication for HD at this time * Will provide Furosemide 40 mg IV x1 this am to continue diuresis * Rt IJ HD catheter placed 02/[address] Mary. If continued renal improvement tomorrow, IJ TCC can be removed by surgery * Document strict I/O's and repeat metabolic profile tomorrow AM. (2) Chronic kidney disease, stage III (moderate): Plan: * CKD stage G3/A2. Baseline Cr 1.3-1.6. CKD attributed to hypertension and DKD. (3) Anemia: Plan: * Anemia due to GIB * Gastroenterology consulted for EGD to assess for UGI source (4) Anastomotic leak of intestine: Plan: * Adenocarcinoma of the colon s/p R open hemicolectomy 02/06/23. On post-op day #10 developed a signs of sepsis. Exploratory laparotomy revealed an anastomotic leak/perforation and had resection of the anastomosis w/ creation of an end ileostomy. * Remains on parental nutrition. Admission and Anticipated Discharge Date Admission Date: February 06, 2023 Subjective Mrs. Hull was evaluated in her hospital room this morning. She continues to have melanotic stool via her ostomy. staff mechanical engineer was hanging one unit PRBC at the time of my evaluation. Mrs. Hull denied abdominal discomfort, N/V, hematemesis Review of Systems Constitutional: no fever Eyes: no problem reported Ear, Nose, Mouth, Throat: no problem reported Respiratory: no cough and no dyspnea Cardiovascular: no chest pain Gastrointestinal: no nausea and no vomiting Physical Exam Constitutional: + frail appearing Eyes: PERRL, conjunctivae normal, anicteric sclerae ENMT: external ear and nose normal, oropharynx normal Neck: trachea midline, no thyromegaly Respiratory: normal respiratory effort, lungs clear to auscultation Cardiovascular: RRR, no murmur, no edema Rate/Rhythm: regular rate and regular rhythm Extremities: + edema (2+ dependent edema) Gastrointestinal (Abdomen): Inspection/Auscultation: + hypoactive bowel sounds Skin: no rashes, warm and dry Neurologic: Speech / Cognition: normal speech and normal cognition Results & Data Vital Signs (Past 12 Hours) Vital Signs Temp Pulse Pulse Pulse Resp BP BP 03/09/23 08:00 36.7 C 81 16 177/80 H 03/09/23 07:02 36.8 C 91 H 16 171/78 H 03/09/23 06:00 85 03/09/23 02:00 36.9 C 87 15 159/69 H 03/08/23 22:27 36.9 C 89 16 137/67 03/08/23 22:07 90 Pulse Ox O2 Del Method 03/09/23 08:00 100 03/09/23 07:02 98 Room Air 03/09/23 06:00 03/09/23 02:00 98 Room Air 03/08/23 22:27 100 Room Air 03/08/23 22:07 Laboratory Results Laboratory Results - last 24 hr 02/26/23 03/08/23 03/08/23 07:20 07:56 11:12 WBC RBC Hgb Hct MCV MCH MCHC RDW Std Deviation RDW Coeff of Mari Plt Count MPV Sodium Potassium Chloride Carbon Dioxide Anion Gap BUN Creatinine Est Cr Clr Drug Dosing Est GFR ( Amer) Est GFR (Non-Af Amer) BUN/Creatinine Ratio Glucose POC Glucose 236 H Calcium Phosphorus Magnesium Blood Type O Positive Antibody Screen NEGATIVE Crossmatch See Detail See Detail 03/08/23 03/08/23 03/08/23 16:00 16:30 20:10 WBC RBC Hgb 7.2 L Hct 21.5 L MCV MCH MCHC RDW Std Deviation RDW Coeff of Mari Plt Count MPV Sodium Potassium Chloride Carbon Dioxide Anion Gap BUN Creatinine Est Cr Clr Drug Dosing Est GFR ( Amer) Est GFR (Non-Af Amer) BUN/Creatinine Ratio Glucose POC Glucose 80 181 H Calcium Phosphorus Magnesium Blood Type Antibody Screen Crossmatch 03/09/23 03/09/23 06:04 07:07 WBC 9.83 RBC 2.20 L Hgb 6.3 L* Hct 18.7 L* MCV 85.0 MCH 28.6 MCHC 33.7 RDW Std Deviation 46.5 H RDW Coeff of Mari 15.3 H Plt Count 278 MPV 11.6 Sodium 142 Potassium 4.6 D Chloride 108 H Carbon Dioxide 27 Anion Gap 7 BUN 141 H Creatinine 2.22 H Est Cr Clr Drug Dosing 17.7 Est GFR ( Amer) 22.2 Est GFR (Non-Af Amer) 19.2 BUN/Creatinine Ratio 63.5 H Glucose 234 H POC Glucose 283 H Calcium 9.2 Phosphorus 3.2 Magnesium 2.0 Blood Type Antibody Screen Crossmatch PG Care Time/CCT Total # of Minutes Spent Total Time Spent with Patient: Total time spent is greater than 50% in coordination of care (as documented) at patient's floor/unit and/or counseling patient: Coding Level of Care Code 84304 SUB INP/OBS CARE 3/50MIN Diagnoses Acute kidney injury N17.9 Chronic kidney disease, stage III (moderate) N18.30 Anemia D64.9 Anemia type: unspecified type Anastomotic leak of intestine K91.89 (3) Anemia Anemia type: unspecified type Qualified Code(s): D64.9 - Anemia, unspecified
[2023-03-09] MEDS ORDERED: FUROSEMIDE 40 MG/4 ML VIAL IV ONE (11:04)
[2023-03-09] MEDS ORDERED: PHARMACY GLYCEMIC MGMT CONSULT PRN (11:05)
--- NOTE | 2023-03-09 13:41 | Pharmacy Report ---
Pharmacy Glycemic Short Note 2 - Date of Service March 09, 2023 - Glycemic Short BSG Results (Last 24 hours): 03/08/23 03/08/23 03/09/23 16:30 20:10 06:04 Glucose 234 H POC Glucose 80 181 H 03/09/23 03/09/23 07:07 11: Glucose POC Glucose 283 H 218 H OUTPATIENT ANTIDIABETIC REGIMEN: * Lantus 20 units SC PM * HbA1c = 8% (02/02/23) ASSESSMENT: 03/09: * Patient received 29 units of insulin yesterday (12 basal + 17 bolus) with an additional 15 units in the TPN bag. BSGs 809-914-87-181 mg/dL * She was made NPO overnight with concern for bleed. TPN continued. Adjusted novolog to q4 hours d/t NPO status * Increased insulin amount in TPN today. Monitor. 03/08: * Keren received 28 units of insulin yesterday (12 basal + 6 bolus + 10 units in TPN bag). BSGs were: 263-009-233-84 mg/dL. * BSG this AM is 229 mg/dL. Remains on TPN at goal. PO intake was a little better yesterday. This may account for high BSG this AM. * Will increase amount of insulin in the TPN bag today. No change to Lantus. Will add a carb ratio to Novolog to cover carbs patient may now be eating with diet ordered. 03/06: * BSGs yesterday were 255-356-913-142 mg/dL. Patient received 12 units of Lantus + 1 unit of Novolog (Given at HS). There are 10 units of IV insulin in her TPN. Dextrose remains stable at 185 grams/day. * Fasting today was 108 mg/dL. This is most likely due to TPN being paused overnight. This raises concern that hyperglycemia from TPN is being covered with basal insulin. * Hold Lantus this AM and switch to BID dosing for more control. It may be reasonable to increase insulin in TPN. * Continue Novolog. 03/05: * BSGs yesterday were 808-882-694-191 mg/dL. Patient received 12 units of Lantus and 4 units of bolus. There are 10 units of insulin in the TPN. * Continue TPN + 10 units in bag. * BSGs today are 124-131 mg/dL so continue regimen. 03/02: * BSGs 325-721-790-140mg/dL the last 24h. Received 12units of SQ basal and 10 units IV insulin in TPN, 8 units of bolus. * Diet advanced to full liquids. * Given stable BSGs over several days, TPN macros were advanced to goal starting this evening. Will trend BSGs. No additional insulin dose adjustments for now. 03/01: * Keren received 27 units of insulin yesterday, 10 basal + 10 in TPN bag + 7 bolus. BSGs were: 693-892-576-159 mg/dL. * Fasting up slightly to 176 mg/dL today. Will increase basal slightly today. * No change to bolus or amount of insulin in TPN bag (Dextrose = 168 g/day). Stressors stable. 02/27: * BSGs downtrending. Lantus reduced to 15 units of 02/26, Fasting 93 mg/dL- received 15 units this morning. Will reduce to 10 units tomorrow (reassess). * Dextrose content increased in TPN today but continued same 10 units in bag. Patient is to received HD today. * Continue to monitor, loosened correction factor. 02/25: * BSGs above goal the last 24h: 609-407-171-117-516-303lv/dL. Received 25 units of basal and 16 units of bolus insulin yesterday. * HD cath clotted - unable to dialyze today. TPN continues to run. NPO. * Lantus increased to 20 units given elevated fasting BSGs. Continued 10 units of insulin in TPN for now (unclear of future plan for PN given access issue). Novolog correctional tightened. TPN dextrose taken to goal central access (118gm CHO). 02/24: * Patient's BSGs yesterday were 442-515-219-234 mg/dL. Today's AM BSGs were 240-212-146 mg/dL. * Patient did get 2 hrs of HD yesterday and planned for 3hr HD today. * Increased SC Lantus dose given persistently BSGs. However after BSG normalized at lunchtime and as patient receiving another round of HD today, will reduce the amount of insulin the TPN bag from 20 to 10. If BSGs trend up again can consider tightening NovoLog CF. * Will keep TPN macros the same today until BSGs somewhat consistently controlled. 02/23: * Patient's blood sugars elevated again today, 0 units of insulin in PPN bag with 50 gm of dextrose * Converting to central parenteral nutrition- dextrose will increase- will add 20 units of insulin to the bag (patient was used ~19 units of correctional since resuming TPN). Adjusted checks back to q4 as this helped previously. * Resumed 10 units of lantus qAM (held 02/22 d/t NPO status and ppn held until 1600). PLAN FOR INPATIENT GLYCEMIC CONTROL: * Basal insulin * Lantus 6 units SC BID * Bolus insulin * NovoLog per scale ACHS or Q4hrs while NPO * Goal Range: Low 110 mg/dL - High 140 mg/dL * Correction Factor: 20 mg/dL/unit * Carb Ratio: 10 g CHO/unit * TPN: 20 units regular insulin
--- NOTE | 2023-03-09 13:52 | Pharmacy Report ---
Pharmacy PN Follow-up Note - Date of Service March 07, 2023 - Subjective Patient is currently on day #17 of TPN for prolonged NPO status. - Objective Height & Weight (Last Documented) Height 5 ft 4.5 in Weight 79.3 kg Diet Order(s) 03/01/23 Lunch Diet Intake & Ouput (24hrs) 03/06/23 03/07/23 03/08/23 06:59 06:59 06:59 Intake Total 4548.034 / 4548.034 993.433 / 993.433 0 / 0 Output Total 1675 / 1675 3450 / 3450 Balance 2873.034 / 2873.034 -2456.567 / -2456.567 0 / 0 Selected Laboratory Results 03/07/23 06:21 Sodium 142 Potassium 3.7 Chloride 110 H Carbon Dioxide 24 Anion Gap 8 BUN 138 H Creatinine 2.45 H Est GFR ( Amer) 19.7 Est GFR (Non-Af Amer) 17.0 BUN/Creatinine Ratio 56.3 H Glucose 145 H Calcium 9.2 Phosphorus 2.8 Magnesium 1.8 Total Bilirubin 0.5 AST 22 ALT 15 Alkaline Phosphatase 362 H - Assessment & Plan Assessment: * Lipids remain ordered three times per week (MoWeFr). * Patient with significant edema. Has received Lasix 40 mg IV x 1 yesterday and today. Attending okay to continue with regular TPN volume for now (no fluid restriction). * Protonix being supplemented outside of the bag. Plan: * For Day #17 of TPN administration, the following will be ordered: * Macronutrients: * Amino Acids: 106 grams/day * Dextrose: 185 grams/day * Lipids: none today * Micronutrients: * Sodium phosphate: mMol/day * Sodium chloride: 40 mEq/day * Sodium acetate: 60 mEq/day * Potassium phosphate: 15 mMol/day * Potassium chloride: mEq/day * Potassium acetate: 40 mEq/day * Magnesium sulfate: 12.18 mEq/day * Calcium gluconate: mEq/day * Multivitamins: 10 mL/day * Trace elements: 1 mL/day * Thiamine: 100 mg/day * Regular insulin: 10 units/day * Total volume of 1406 mL will be infused over 24 hours and will provide 1051 kcal/day * Labs will be ordered per PN protocol. * Pharmacy will follow and adjust PN orders on a daily basis. Thank you!
[2023-03-09] MEDS: ACETAMINOPHEN 500 MG TAB PO PRN (15:54)
[2023-03-09] MEDS ORDERED: CENTRAL TPN IV SCH (16:00)
[2023-03-09] MEDS ORDERED: [UNRECOGNIZED DRUG - OTHER] IV SCH (16:00)
[2023-03-09] MEDS ORDERED: CLINOLIPID 20% IV FAT EMULSION 250 ML IV SCH (16:00)
[2023-03-09 16:36] LABS: Hematocrit (blood only) 23.4 % (37.0-47.0); Hemoglobin 7.8 g/dl (12.0-16.0)
[2023-03-09] MEDS: VORTIOXETINE HYDROBROMIDE 10 MG PO SCH (20:47)
[2023-03-09] MEDS: STOP CLINOLIPID SCH (22:00)
[2023-03-10] MEDS: INSULIN ASPART PER UNIT CHARGE SC SCH ×6 (00:04→20:27)
--- NOTE | 2023-03-10 06:46 | Hospitalist Progress Note ---
Date of Service March 10, 2023 Assessment & Plan (1) Elevated blood pressure reading: Plan: Pt is an 87 y/o female with PMH of DM, colon cancer, TIA (2021), dementia, chronic low back pain, CKD, and HLD presenting to the hospital for right hemicolectomy. Initial surgery 02/06. Returned to the OR 02/19 for ischemic bowel resection and ileostomy creation. #Anemia #Coagulability #Bleeding #Heme Positive Stool -Anticoagulation held with concern for acute bleed - Hbg= 5.9 this morning, plan to transfuse 3 unit pRBC - Concern for upper GI bleed; plan for EGD today #Severe Sepsis with VRE and ESBL #Leukocytosis -Patient with clinical deterioration and severe sepsis starting 02/16 secondary to bowel leak. -Patient now s/p ischemic bowel resection with ileostomy creation 02/19. Peritoneal fluid growing VRE E. faecium and ESBL. - Open wound noted on abdomen; wound vac in place completed 14 days of coverage for cultured bacteria #ARCELIA on CKD IV #ATN -Baseline Cr ~ 1.6-1.7. -overall improving; creatine continues to trend down - nephrology consulted an appreciate recommendations #Elevated BP -Patient with elevated blood pressure most likely secondary to recent surgery and pain. -Was initially started on amlodipine 5 mg during this admission. -We will hold for now due to risk of becoming hypotensive, more lethargic --> want to maintain perfusion; spikes in BP have been asymptomatic #A fib with RVR -Patient without a history of atrial fibrillation, had a bout on 02/20. -Heparin SQ BID for VTE ppx currently held with concern for GI bleed #Parental Nutrition -Pharmacy/Dietary on board. TPN through central access. -Ostomy functioning. 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 -Completed 10 day course of doxycycline #Dementia -Continue Seroquel 12.5 mg and donepezil 5 mg QHS #Insulin Dependent Diabetes Mellitus -SSI while hospitalized. Resume home dosing on discharge #Depression -Continue home vortioxetine #OAB -oxybutynin currently being held; if continues to tolerate PO intact could resume #HLD -Statin held while on daptomycin #History of TIA - clopidogrel currently being held Code Status: Patient does have a living will stating DNR/DNI etc. This does not currently apply as patient presented for elective procedure. Full code in the setting of complications from recent procedure. Lines: PIV x1, tunneled dialysis catheter, Vera Diet: NPO pending GI DVT ppx: heparin BID held due to concern for upper GI bleed (2) Chronic kidney disease, stage IV (severe): (3) Anastomotic leak of intestine: (4) Atrial fibrillation with rapid ventricular response: (5) On parenteral nutrition: Admission and Anticipated Discharge Date Admission Date: February 06, 2023 Supervising Physician Co-Signing Physician Notes Attending attestation Pt seen and examined in concert with Dr. rG. In agreement with the documented findings as noted in the resident documentation with any exceptions or additions as noted here. Findings concerning for ongoing GIB without current hemodynamic instability. On examination: S1/S2 nl RRR no MCG. CTAB. Abd NT/ND BS+ve Anemia, blood loss in the setting of melena/GIB - GI consult appreciated - txf 3 UPRBC. Pending EGD this afternoon for further eval/intervention. Continue PPI ARCELIA on CKDIV w/ ATN - nephro consult appreciated. Baseline Cr 1.6. Continue to trend Severe sepsis with VRE, ESBL - completed course of abx therapy AF h/o RVR - heparin held for GIB/procedure Else see resident documentation as noted. Subjective States that she is fatigued this morning. Complaining that she is thirsty;would like water. Review of Systems Review of Systems: As per above Physical Exam Physical Exam: Constitutional: well-appearing, no acute distress HEENT: NCAT, no conjunctival injection CV: regular rhythm, no murmur appreciated, extremities well-perfused, trace LE edema. +1 UE B/L. Resp: CTABL, no wheezes/rales/rhonchi appreciated, no increased work of breathing GI: ostomy in place with dark output, wound vac in place MSK: no gross deformities appreciated Skin: warm, dry, no rash appreciated Neuro: alert, oriented, no focal neurologic deficit appreciated Results & Data Results & Data Vital Signs (Past 12 Hours) Vital Signs Temp Pulse Pulse Pulse Resp BP Pulse Ox 03/10/23 02:24 36.8 C 82 18 134/58 L 99 03/09/23 23:05 36.7 C 79 18 129/56 L 97 03/09/23 22:01 84 03/09/23 19:21 36.8 C 83 18 134/61 100 O2 Del Method 03/10/23 02:24 Room Air 03/09/23 23:05 Room Air 03/09/23 22:01 03/09/23 19:21 Room Air
--- NOTE | 2023-03-10 08:27 | Nephrology Progress Note ---
Date of Service March 10, 2023 Assessment & Plan (1) Acute kidney injury: Plan: * Non-oliguric. UO 3925 cc last 24 hours. Creatinine is trending down, 2.4-->2.2 this am. Patient is oxygenating well on RA. She remains within the recovery phase of ARCELIA. No acute indication for HD at this time * Hold diuretic today. Patient is diuresing on her own * Rt IJ HD catheter placed 02/[address] Mary. Once Cr < 2.0 and patient is medically stable, will consider surgical removal * Document strict I/O's and repeat metabolic profile tomorrow AM. (2) Chronic kidney disease, stage III (moderate): Plan: * CKD stage G3/A2. Baseline Cr 1.3-1.6. CKD attributed to hypertension and DKD. (3) Anemia: Plan: * Hgb 5.9 this am. Recommend transfusion to maintain Hgb > 8.0 * Gastroenterology plans EGD today (4) Anastomotic leak of intestine: Plan: * Adenocarcinoma of the colon s/p R open hemicolectomy 02/06/23. On post-op day #10 developed a signs of sepsis. Exploratory laparotomy revealed an anastomotic leak/perforation and had resection of the anastomosis w/ creation of an end ileostomy. * Remains on parental nutrition. Admission and Anticipated Discharge Date Admission Date: February 06, 2023 Subjective Mrs. Hull was evaluated in her hospital room this morning. She continues to have melanotic stool via her ostomy. She denies abdominal discomfort, N/V, hematemesis. Mrs. Hull is scheduled for EGD today Review of Systems Constitutional: no fever Eyes: no problem reported Ear, Nose, Mouth, Throat: no problem reported Respiratory: no cough and no dyspnea Cardiovascular: no chest pain Gastrointestinal: no nausea and no vomiting Physical Exam 2 Constitutional: + frail appearing Eyes: PERRL, conjunctivae normal, anicteric sclerae ENMT: external ear and nose normal, oropharynx normal Neck: trachea midline, no thyromegaly Respiratory: normal respiratory effort, lungs clear to auscultation Cardiovascular: RRR, no murmur, no edema Rate/Rhythm: regular rate and regular rhythm Extremities: + edema (2+ dependent edema) Gastrointestinal (Abdomen): Inspection/Auscultation: + hypoactive bowel sounds Skin: no rashes, warm and dry Neurologic: Speech / Cognition: normal speech and normal cognition Results & Data Vital Signs (Past 12 Hours) Vital Signs Temp Pulse Pulse Pulse Resp BP BP 03/10/23 07:06 36.5 C 78 18 146/65 H 03/10/23 02:24 36.8 C 82 18 134/58 L 03/09/23 23:05 36.7 C 79 18 129/56 L 03/09/23 22:01 84 Pulse Ox O2 Del Method 03/10/23 07:06 97 Room Air 03/10/23 02:24 99 Room Air 03/09/23 23:05 97 Room Air 03/09/23 22:01 PG Care Time/CCT Total # of Minutes Spent Total Time Spent with Patient: Total time spent is greater than 50% in coordination of care (as documented) at patient's floor/unit and/or counseling patient: Coding Level of Care Code 82961 SUB INP/OBS CARE 3/50MIN Diagnoses Acute kidney injury N17.9 Chronic kidney disease, stage III (moderate) N18.30 Anemia D64.9 Anemia type: unspecified type Anastomotic leak of intestine K91.89 (3) Anemia Anemia type: unspecified type Qualified Code(s): D64.9 - Anemia, unspecified
[2023-03-10 08:38] LABS: BUN Creatinine Ratio 63.6 (10-20); Calcium 8.5 mg/dl (8.6-10.3); Creatinine Clr Calc Pharmacy 17.3 ml/min; Est GFR (African American) 21.5 ml/min; Est GFR (Non-African American) 18.6 ml/min; Magnesium 1.9 mg/dl (1.7-2.4); Phosphorus 3.5 mg/dl (2.5-4.9); Potassium 4.4 mmol/L (3.5-5.1)
[2023-03-10 08:42] LABS: Hematocrit (blood only) 17.5 % (37.0-47.0); Hemoglobin 5.9 g/dl (12.0-16.0); Mean Corpuscular Hemoglobin 28.8 pg (25.0-34.0); Mean Corpuscular Hgb Conc 33.7 g/dL (32.0-36.0); Mean Corpuscular Volume 85.4 fL (80.0-100.0); Mean Platelet Volume 11.7 fL (9.4-12.4); Nucleated RBC # (auto) 0.02 K/uL (0.00-0.12); Nucleated RBC % (auto) 0.2 %; Platelet Count 211 K/uL (130-400); RDW Coefficient of Variation 15.7 % (11.5-14.5); Red Blood Count 2.05 M/uL (4.20-5.40); White Blood Count 10.75 K/ul (4.8-10.8)
[2023-03-10] MEDS ORDERED: SODIUM CHLORIDE 0.9% 250 ML IV PRN (08:58)
--- NOTE | 2023-03-10 09:43 | Anesthesiology Consultation ---
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 Consults Requested none ASA ASA4 Proposed Anesthesia Anesthesia Type: MAC Risk / Benefits Reviewed With: PT / POA / Parent / Guardian (Verbal consent obtained from pt's daughter, Pamela Patel), Accepts Plan and Informed Consent Obtained History Surgery Operation Date: 02/06/23 12:00 Proposed Procedures p Open Left Hemicolectomy - Javier Mary, DO Operation Date: 02/19/23 07:50 Proposed Procedures p Exploratory Laparotomy, Possible Bowel Resection, Possible Osteotomy - Parviz Keenan, DO Operation Date: 02/26/23 12:30 Proposed Procedures p Right Jugular Tunneled Perm Catheter Placement - Javier Mary, DO Operation Date: 03/10/23 16:30 Proposed Procedures p Esophagogastroduodenoscopy Dr. Rhodes - Gordon Rhodes MD Height/Weight Height: 5 ft 4.5 in Weight: 76.4 kg Allergies Allergy/AdvReac Type Severity Reaction Status Date / Time adhesive tape AdvReac Mild SKIN Verified 02/23/23 22:26 IRRITATION (BANDAIDS) Medications Home Medications Medication Instructions Recorded Confirmed Last Taken donepezil 5 mg tablet (Aricept) 5 mg PO HS 10/19/18 02/06/23 02/04/23 latanoprost 0.005 % eye drops 1 drp OPB HS 10/19/18 02/06/23 02/05/23 23:00 quetiapine 25 mg tablet (Seroquel) 12.5 mg PO HS 10/19/18 02/06/23 02/04/23 blood-glucose meter #1 ea 09/14/20 01/29/23 Unknown acetaminophen 500 mg capsule 1,000 mg PO BID PRN Pain 11/08/21 02/06/23 02/04/23 Wheeled Walker #1 ea 03/28/22 01/28/23 Unknown ascorbic acid (vitamin C) 500 mg 500 mg PO QAM 05/29/22 02/06/23 02/05/23 08:00 capsule vortioxetine 10 mg tablet 10 mg PO HS 05/29/22 02/06/23 02/04/23 (Trintellix) omega-3 acid ethyl esters 1 gram 1 cap PO BID 08/08/22 02/06/23 02/04/23 capsule BD Ultra-Fine Sheri Pen Needle 32 #100 ea 09/01/22 01/29/23 Unknown gauge x 32" (pen needle, diabetic) ferrous sulfate 325 mg (65 mg 325 mg PO Q2D 10/03/22 02/06/23 02/04/23 iron) tablet meclizine 25 mg tablet 25 mg PO TID PRN dizziness or 10/03/22 02/06/23 01/11/23 vertigo #10 tabs oxybutynin chloride 10 mg 10 mg PO QAM #90 tabs 10/20/22 02/06/23 02/04/23 tablet,extended release 24 hr cholecalciferol (vitamin D3) 50 50 mcg PO QAM 11/27/22 02/06/23 02/05/23 08:00 mcg (2,000 unit) capsule calcium 600 mg capsule 600 mg PO QAM 01/06/23 02/06/23 02/05/23 08:00 vit C 250 mg-vit E 90 mg-zinc 40 1 tab PO QPM 01/06/23 02/06/23 02/05/23 20:00 mg-copper 1 [id number] capsule (PreserVision AREDS-2) rosuvastatin 10 mg tablet 10 mg PO QAM 01/29/23 02/06/23 02/04/23 aspirin 81 mg tablet 81 mg PO DAILY 02/06/23 02/06/23 02/04/23 clopidogrel 75 mg tablet (Plavix) 75 mg PO QAM 02/06/23 02/06/23 01/07/23 darbepoetin bao in polysorbat 60 60 mcg subcut .q2wks 02/06/23 02/06/23 01/23/23 mcg/mL in polysorbate injection (Aranesp) insulin glargine 100 unit/mL (3 18 unit (0.18 mL) subcut QPM #30 mL 02/13/23 Unknown mL) subcutaneous pen (Lantus Solostar U-100 Insulin) Active Medications Generic Name Dose Route Start Last Admin Trade Name Freq PRN Reason Stop Dose Admin Acetaminophen 1,000 mg 03/08/23 04:51 03/09/23 15:54 Acetaminophen 500 Mg Tab PO 04/06/23 08:50 1,000 mg Q8H PRN Administration Pain or Fever Amlodipine Besylate 5 mg 02/14/23 09:00 02/18/23 08:43 Amlodipine Besylate 5 Mg Tab PO 03/16/23 08:59 5 mg QAM FANNIE Administration Clopidogrel Bisulfate 75 mg 02/12/23 09:00 02/16/23 08:10 Clopidogrel Bisulfate 75 Mg Tab PO 03/14/23 08:59 75 mg QAM FANNIE Administration Heparin Sodium (Beef Lung) 5 ml 02/20/23 16:06 03/03/23 16:36 Heparin 10 Unit/Ml 5 Ml Flush FLUSH 03/22/23 16:05 5 ml UD PRN Administration Flush Heparin Sodium (Porcine) 5,000 units 02/14/23 21:00 03/09/23 08:22 Heparin Sod 5,000 Unit/0.5 Ml Vial SQ 03/16/23 20:59 Not Given Q12 FANNIE Pantoprazole Sodium 40 mg/ 10 mls @ 5 mls/min 02/26/23 21:00 03/10/23 11:20 Syringe IV 03/28/23 20:59 5 mls/min BID FANNIE Administration Amino Acids/Dextrose 1,385.2 1,385.2 mls @ 57.7 mls/hr 03/10/23 16:00 03/10/23 15:21 ml/ Nutrition (Parenteral) IV 03/11/23 15:59 57.7 mls/hr .Q24H FANNIE Administration Protocol Insulin Aspart 0 units 03/09/23 12:00 03/10/23 12:23 Insulin Aspart Per Unit Charge SC 04/02/23 20:59 3 units Q4 FANNIE Administration Protocol Insulin Glargine 6 units 03/07/23 09:00 03/10/23 09:58 Lantus Per Unit Charge SC 04/05/23 20:59 6 units BID FANNIE Administration Protocol Miscellaneous 1 each 02/27/23 22:00 03/09/23 22:00 Stop Clinolipid N/A 03/27/23 21:59 1 each MoWeFr@2200 FANNIE Administration Miscellaneous 1 each 03/07/23 21:00 03/09/23 21:07 Remove Lidoderm Patch N/A 04/06/23 20:59 1 each DAILY@2100 FANNIE Administration Vortioxetine 1 each 02/18/23 21:00 03/09/23 20:47 Vortioxetine Hydrobromide 10 Mg Tablet (Trintellix) PO 03/20/23 20:59 1 each HS FANNIE Administration NPO Date Last Intake of Fluids: 02/18/23 Time Last Intake of Fluids: 23:00 Last Intake of Fluids Comment: sip water Date Last Intake of Solids: 02/18/23 Time Last Intake of Solids: 23:00 Last Intake of Solids Comment: patient has been npo for days, she is on tpn Past Medical History Medical History Memory change Pt verbalized she has come trouble remembering things Colon cancer new dx Diabetes mellitus, type 2 IDDM TIA (transient ischemic attack) (01/2022) no residual effects>beginning of 2022>? reason for plavix Dementia Chronic low back pain Cervical spinal stenosis Lumbar facet joint syndrome Retinal vein occlusion Cervicalgia Lumbar spondylosis Anemia has been getting procrit injections every 2 weeks w/iron infusions and blood transfusion summer 2022 Urinary incontinence Osteoporosis Nontoxic multinodular goiter Mixed conductive and sensorineural hearing loss Hyperlipidemia Glaucoma Diabetic nephropathy Depression Chronic kidney disease, stage IV (severe) Past Family History Family History Brother Bone cancer Father , @AGE 64 Cardiac disorder Family history of deafness or hearing loss Hypertension Myocardial infarction, Onset Age: 64 Mother Family history of deafness or hearing loss Pancreatic cancer Aunt Breast cancer Denies family history of Family history of bleeding disorder Ovarian cancer Prostate cancer Adverse anesthesia outcome Colorectal cancer Past Surgical History Surgical History S/P dialysis catheter insertion (02/26/23) Right Jugular Tunneled Perm Catheter Placement, Left Subclavian Central Venous Catheter Placement, Removal of Right Interal Jugular Hemodialysis Catheter(Bilateral) - Javier Mary, DO H/O exploratory laparotomy (02/19/23) Exploratory Laparotomy, Resection of Ileocolonic anastomosis, partial omentectomy, small bowel resection, creation of end ileostomy(Not Applicable) - Parviz Keenan, DO H/O right hemicolectomy (02/06/23) Open Right Hemicolectomy(Right) - Javier Mary DO History of esophagogastroduodenoscopy (EGD) Slow to wake up after anesthesia Hx of bladder repair surgery Hx of colonoscopy History of total abdominal hysterectomy SECONDARY TO PROLAPSED UTERUS History of repair of rotator cuff rt History of repair of rectocele History of cataract surgery rt/left Social History Smoking Status: Never smoker Do You Dip or Chew Tobacco: No Hx Alcohol Use: No alcohol intake frequency: other Hx Substance Use: No substance use type: does not use Physical Exam Vital Signs Last Vital Signs Temp 36.9 C 03/10/23 15:24 Pulse 81 03/10/23 15:24 Resp 18 03/10/23 15:24 BP 179/82 H 03/10/23 15:24 Pulse Ox 99 03/10/23 15:24 O2 Del Method Room Air 03/10/23 09:00 O2 Flow Rate 2 02/26/23 16:30 Constitutional + lethargic ENMT Mouth: + dental caries; no chipped teeth and no loose teeth Thyromental Distance: > or= 3.5 Finger Breadths Mallampati Class: III Neck normal visual inspection and trachea midline; neck extension not limited Respiratory normal respiratory effort; no respiratory distress Auscultation: lungs clear to auscultation bilaterally; no crackles, no rhonchi and no wheezes Cardiovascular Rate/Rhythm: regular rate and regular rhythm Heart Sounds: no gallop, no murmur and no cardiac rub Chest (Breasts) Chest: + vascular access device or port Musculoskeletal Head/Neck/Chest: full ROM of neck Neurologic moves all extremities and awake Psychiatric Orientation: alert and oriented x 3 Testing Laboratory Results 03/10/23 06:58 03/10/23 06:58 PT 11.1 Seconds (9.0-12.0) 03/10/23 09:57 INR 1.0 (0.9-1.1) 03/10/23 09:57 APTT 24.3 Seconds (21.0-31.0) 03/10/23 09:57 Urine Color Yellow 02/21/23 Unknown Urine Appearance Cloudy (Clear) A 02/21/23 Unknown Urine pH 5.5 (4.5-7.5) 02/21/23 Unknown Ur Specific [place] 1.013 (1.000-1.030) 02/21/23 Unknown Urine Protein 1+ (Negative) H 02/21/23 Unknown Urine Glucose (UA) Negative (Negative) 02/21/23 Unknown Urine Ketones Negative (Negative) 02/21/23 Unknown Urine Nitrite Negative (Negative) 02/21/23 Unknown Ur Leukocyte Esterase Trace (Negative) H 02/21/23 Unknown Urine WBC (Auto) 10-30 /hpf (0-5) H 02/21/23 Unknown Urine RBC (Auto) 0-4 /hpf (0-4) 02/21/23 Unknown U Hyaline Cast (Auto) 5-10 /lpf (0-5) H 02/21/23 Unknown U Epithel Cells (Auto) >30 /lpf (0-5) H 02/21/23 Unknown Urine Bacteria (Auto) 1+ (Negative) H 02/21/23 Unknown Blood Type O Positive 03/08/23 07:56 Antibody Screen NEGATIVE 03/08/23 07:56 02/19/23 13:09 Gram Stain - Final Peritoneal Fluid Aerobic and Anaerobic Culture - Final Escherichia coli ESBL Enterococcus faecium VRE 02/16/23 09:08 Aerobic Blood Culture - Final Blood No growth in Aerobic bottle after 5 days. Anaerobic Blood Culture - Final No growth in Anaerobic bottle after 5 days. 02/16/23 09:08 Aerobic Blood Culture - Final Blood No growth in Aerobic bottle after 5 days. Anaerobic Blood Culture - Final No growth in Anaerobic bottle after 5 days. 02/16/23 Unknown Urine Culture - Final Urine,Clean Catch Escherichia coli ESBL 03/10/23 03/10/23 11:17 07:09 POC Glucose 185 H 189 H Electrocardiogram Date: 01/29/23 Findings: + SB @ (58) and + RBBB Chest X-Ray Date: 08/05/22 Negative left rib series No acute cardiopulmonary disease Bilateral hyperinflated lungs may represent excellent inspiratory effort or secondary signs of COPD Echocardiogram Date: 01/23/23 EF: 60-65% LV Function: normal Other Findings: + LVH (mild) Valvular Disease: + no significant valvular disease Other Testing Chest CT 01/16/23 1. There is no evidence of intrathoracic metastatic disease. 2. Cardiomegaly. 3. No airspace consolidation or pleural effusion is identified. 4. Diffuse peribronchial thickening suggests bronchitis/reactive airway disease. This is lower lobe predominant and could also potentially be seen with chronic aspiration. Correlate clinically. 5. Additional findings as above. Abdomen pelvis CT 01/16/23 1. No evidence of recurrent or metastatic disease. 2. Bilateral renal lesions are seen, some of which measure greater than simple fluid density. The right lesion is stable from prior exam, however a left inferior pole lesion is not well seen allowing for differences in technique. Nonemergent ultrasound is recommended to exclude solid mass. 3. Additional findings as above. Cardiac event monitor 03/01/22 NSR throughout Rare PACs and PVCs
--- NOTE | 2023-03-10 09:57 | Gastrointestinal Consultation ---
Date of Consultation March 10, 2023 Assessment & Plan (1) H/O right hemicolectomy: (2) Colon cancer: (3) Melena: (4) Acute blood loss anemia: Plan Patient is a 87 y.o. female with a history of colon cancer s/p right hemicolectomy with subsequent ileostomy placement due to anastomotic leak, now with acute blood loss anemia and melena. -NPO. -Recommend blood transfusion of 3 units PRBCs as ordered to maintain hgb ~8. -Continue Pantoprazole 40 mg IV BID. -EGD this afternoon with Dr. Rhodes for further evaluation. -Further recommendations will be made pending results of testing. Thank you for allowing us to participate in the care of this patient. If you have any questions or concerns, please do not hesitate to contact us. Supervising Physician Co-Signing Physician Notes I saw the patient and agree with the findings as documented by MARTÍNEZ Burrows Proceed with EGD today. History of Present Illness Reason for Consultation: UGIB Requesting Physician: Dr. Gr Attending Physician: Modesto Warner MD History of Present Illness Patient is a 87 y.o. female with a history of colon cancer of the ascending colon s/p right hemicolectomy on 02/06 with subsequent anastomotic leak, small bowel ischemia and sepsis requiring surgical intervention with ileostomy placement on 02/19. GI has been consulted in regard to profound anemia with melena noted in ostomy bag requiring multiple blood transfusions. Her H&H this morning was noted to be 5.9/17.5. She is receiving 3 units of PRBCs. She denies any n/v or hematemesis. Denies any abdominal pain, chest pain or shortness of breath. +severe fatigue. Anticoagulation has been held and she has been placed on NPO status with BID PPI IV. Allergies Allergy/AdvReac Type Severity Reaction Status Date / Time adhesive tape AdvReac Mild SKIN Verified 02/23/23 22:26 IRRITATION (BANDAIDS) Home Medications Medication Instructions Recorded Confirmed Type donepezil 5 mg tablet (Aricept) 5 mg PO HS 10/19/18 02/06/23 History latanoprost 0.005 % eye drops 1 drp OPB HS 10/19/18 02/06/23 History quetiapine 25 mg tablet (Seroquel) 12.5 mg PO HS 10/19/18 02/06/23 History blood-glucose meter #1 ea 09/14/20 01/29/23 History acetaminophen 500 mg capsule 1,000 mg PO BID PRN Pain 11/08/21 02/06/23 History Wheeled Walker #1 ea 03/28/22 01/28/23 Rx ascorbic acid (vitamin C) 500 mg 500 mg PO QAM 05/29/22 02/06/23 History capsule vortioxetine 10 mg tablet 10 mg PO HS 05/29/22 02/06/23 History (Trintellix) omega-3 acid ethyl esters 1 gram 1 cap PO BID 08/08/22 02/06/23 History capsule BD Ultra-Fine Sheri Pen Needle 32 #100 ea 09/01/22 01/29/23 Rx gauge x 5/32" (pen needle, diabetic) ferrous sulfate 325 mg (65 mg 325 mg PO Q2D 10/03/22 02/06/23 History iron) tablet meclizine 25 mg tablet 25 mg PO TID PRN dizziness or 10/03/22 02/06/23 Rx vertigo #10 tabs oxybutynin chloride 10 mg 10 mg PO QAM #90 tabs 10/20/22 02/06/23 Rx tablet,extended release 24 hr cholecalciferol (vitamin D3) 50 50 mcg PO QAM 11/27/22 02/06/23 History mcg (2,000 unit) capsule calcium 600 mg capsule 600 mg PO QAM 01/06/23 02/06/23 History vit C 250 mg-vit E 90 mg-zinc 40 1 tab PO QPM 01/06/23 02/06/23 History mg-copper 1 [id number] capsule (PreserVision AREDS-2) rosuvastatin 10 mg tablet 10 mg PO QAM 01/29/23 02/06/23 History aspirin 81 mg tablet 81 mg PO DAILY 02/06/23 02/06/23 History clopidogrel 75 mg tablet (Plavix) 75 mg PO QAM 02/06/23 02/06/23 History darbepoetin bao in polysorbat 60 60 mcg subcut .q2wks 02/06/23 02/06/23 History mcg/mL in polysorbate injection (Aranesp) insulin glargine 100 unit/mL (3 18 unit (0.18 mL) subcut QPM #30 mL 02/13/23 Rx mL) subcutaneous pen (Lantus Solostar U-100 Insulin) Patient History Medical History Memory change Pt verbalized she has come trouble remembering things Colon cancer new dx Diabetes mellitus, type 2 IDDM TIA (transient ischemic attack) (01/2022) no residual effects>beginning of 2022>? reason for plavix Dementia Chronic low back pain Cervical spinal stenosis Lumbar facet joint syndrome Retinal vein occlusion Cervicalgia Lumbar spondylosis Anemia has been getting procrit injections every 2 weeks w/iron infusions and blood transfusion summer 2022 Urinary incontinence Osteoporosis Nontoxic multinodular goiter Mixed conductive and sensorineural hearing loss Hyperlipidemia Glaucoma Diabetic nephropathy Depression Chronic kidney disease, stage IV (severe) Surgical History S/P dialysis catheter insertion (02/26/23) Right Jugular Tunneled Perm Catheter Placement, Left Subclavian Central Venous Catheter Placement, Removal of Right Interal Jugular Hemodialysis Catheter(Bilateral) - Javier Mary, H/O exploratory laparotomy (02/19/23) Exploratory Laparotomy, Resection of Ileocolonic anastomosis, partial omentectomy, small bowel resection, creation of end ileostomy(Not Applicable) - Parviz Keenan, H/O right hemicolectomy (02/06/23) Open Right Hemicolectomy(Right) - Javier Mary, DO History of esophagogastroduodenoscopy (EGD) Slow to wake up after anesthesia Hx of bladder repair surgery Hx of colonoscopy History of total abdominal hysterectomy SECONDARY TO PROLAPSED UTERUS History of repair of rotator cuff rt History of repair of rectocele History of cataract surgery rt/left Family History Brother Bone cancer Father , @AGE 64 Cardiac disorder Family history of deafness or hearing loss Hypertension Myocardial infarction, Onset Age: 64 Mother Family history of deafness or hearing loss Pancreatic cancer Aunt Breast cancer Denies family history of Family history of bleeding disorder Ovarian cancer Prostate cancer Adverse anesthesia outcome Colorectal cancer Social History Smoking Status: Never smoker Second Hand Exposure: Yes (in the past); Do You Dip or Chew Tobacco: No; Hx Alcohol Use: No Hx Substance Use: No Preferred Language: Georgian Communication Ability: Effective Communication Ability Comment: STATES THAT SHE HAS LOSS OF HEARING Visual Impairment: No Limitations Hearing Ability: Hard of Hearing Classroom Technology Technician Required: No Beliefs That Will Affect Care: None marital status: marital status details: HAS FOUR CHILDREN Current Living Situation: Spouse Current Living Situation Comment: lives w/ spouse and grandson (age 25) current occupational status: 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 How many Children do You have: 4 Feels Safe at Home: Yes Safety Concerns: Feels Safe At This Time Childhood Exposure to Second-Hand Smoke: Yes Diet: regular caffeine: No during the past year weight has: remained stable Dental Care, Regularly: Yes Physical Activity Frequency: Other Physical Activity Frequency Comment: LIMITED BY PHYSICAL CONDITION Seatbelt Use: always Sunscreen Use: No Assistive Devices: Stair Lift and Walker Review of Systems Review of Systems: All systems reviewed & are unremarkable except as noted in HPI & below Physical Exam Constitutional: + frail appearing Eyes: EOM intact bilaterally Respiratory: normal respiratory effort, lungs clear to auscultation Cardiovascular: Rate/Rhythm: regular rate and regular rhythm Gastrointestinal (Abdomen): Inspection/Auscultation: normal bowel sounds Percussion/Palpation: abdomen soft; abdomen nontender, no guarding and abdomen not rigid Wound vac in place. RLQ ileostomy with liquid gordon stool noted in bag. Skin: + pallor Psychiatric: A+Ox3, euthymic affect Results & Data Vital Signs (Past 12 Hours) Vital Signs Temp Pulse Pulse Pulse Resp BP BP 03/10/23 07:06 36.5 C 78 18 146/65 H 03/10/23 02:24 36.8 C 82 18 134/58 L 03/09/23 23:05 36.7 C 79 18 129/56 L 03/09/23 22:01 84 Pulse Ox O2 Del Method 03/10/23 07:06 97 Room Air 03/10/23 02:24 99 Room Air 03/09/23 23:05 97 Room Air 03/09/23 22:01 Diagnostic Findings Laboratory Results WBC 10.75 K/ul (4.8-10.8) 03/10/23 06:58 RBC 2.05 M/uL (4.20-5.40) L 03/10/23 06:58 Hgb 5.9 g/dl (12.0-16.0) L* 03/10/23 06:58 Hct 17.5 % (37.0-47.0) L* 03/10/23 06:58 MCV 85.4 fL (80.0-100.0) 03/10/23 06:58 MCH 28.8 pg (25.0-34.0) 03/10/23 06:58 MCHC 33.7 g/dL (32.0-36.0) 03/10/23 06:58 RDW Std Deviation 49.0 fL (36.4-46.3) H 03/10/23 06:58 RDW Coeff of Mari 15.7 % (11.5-14.5) H 03/10/23 06:58 Plt Count 211 K/uL (130-400) 03/10/23 06:58 MPV 11.7 fL (9.4-12.4) 03/10/23 06:58 Immature Gran % (Auto) 4.3 % 03/08/23 06:20 Neut % (Auto) 74.7 % 03/08/23 06:20 Lymph % (Auto) 7.5 % 03/08/23 06:20 [place] % (Auto) 10.8 % 03/08/23 06:20 Eos % (Auto) 2.5 % 03/08/23 06:20 Baso % (Auto) 0.2 % 03/08/23 06:20 Neut # (Auto) 6.59 K/uL (1.40-6.50) H 03/08/23 06:20 Lymph # (Auto) 0.66 K/uL (1.20-3.40) L 03/08/23 06:20 [place] # (Auto) 0.95 K/uL (0.11-0.59) H 03/08/23 06:20 Eos # (Auto) 0.22 K/uL (0.00-0.50) 03/08/23 06:20 Baso # (Auto) 0.02 K/uL (0.00-0.20) 03/08/23 06:20 Immature Gran # (Auto) 0.38 K/uL (0.01-0.20) H 03/08/23 06:20 Absolute Nucleated RBC 0.02 K/uL (0.00-0.12) 03/10/23 06:58 Nucleated RBC % (auto) 0.2 % 03/10/23 06:58 Neutrophils % (Manual) 72 % 02/25/23 20:49 Lymphocytes % (Manual) 7 % 02/25/23 20:49 Monocytes % (Manual) 9 % 02/25/23 20:49 Eosinophils % (Manual) 4 % 02/25/23 20:49 Metamyelocytes % (Man) 4 % 02/25/23 20:49 Myelocytes % (Man) 4 % 02/25/23 20:49 Plasma Cell % (Manual) 2 % 02/23/23 05:58 Neutrophils # (Manual) 17.55 K/uL (1.40-6.50) H 02/25/23 20:49 Total Absolute Neuts 17.55 K/uL (1.4-6.5) H 02/25/23 20:49 Lymphocytes # (Manual) 1.71 K/uL (1.2-3.4) 02/25/23 20:49 Total Abs Lymphocytes 1.71 K/uL (1.2-3.4) 02/25/23 20:49 Monocytes # (Manual) 2.19 K/uL (0.11-0.59) H 02/25/23 20:49 Eosinophils # (Manual) 0.98 K/uL (0-0.50) H 02/25/23 20:49 Metamyelocytes # (Man) 0.98 K/uL (0-0) H 02/25/23 20:49 Myelocytes # (Manual) 0.98 K/uL (0-0) H 02/25/23 20:49 Plasma Cell # (Manual) 0.40 K/uL (0-0) H 02/23/23 05:58 Hypersegmented Neuts 1+ 02/24/23 05:33 Blood Smear Review 02/17/23 07:27 Toxic Vacuolation 1+ 02/18/23 06:49 Platelet Estimate Normal (Normal) 03/05/23 06:59 RBC Morphology Unremarkable 03/04/23 06:25 Hypochromasia Present 02/09/23 07:10 Polychromasia 1+ 03/08/23 06:20 Basophilic Stippling 1+ 03/06/23 06:55 Spherocytes 1+ 03/01/23 07:43 Echinocytes 1+ 02/25/23 20:49 Rouleaux 1+ 03/07/23 06:21 PT 11.4 Seconds (9.0-12.0) 02/24/23 05:33 INR 1.0 (0.9-1.1) 02/24/23 05:33 APTT 25.6 Seconds (21.0-31.0) 02/24/23 05:33 PTT Ratio 0.9 02/24/23 05:33 Sodium 140 mmol/L (136-145) 03/10/23 06:58 Potassium 4.4 mmol/L (3.5-5.1) 03/10/23 06:58 Chloride 105 mmol/L (98-107) 03/10/23 06:58 Carbon Dioxide 27 mmol/L (21-32) 03/10/23 06:58 Anion Gap 8 (3-11) 03/10/23 06:58 BUN 145 mg/dl (6-23) H 03/10/23 06:58 Creatinine 2.28 mg/dl (0.6-1.2) H 03/10/23 06:58 Est Cr Clr Drug Dosing 17.3 ml/min 03/10/23 06:58 Est GFR ( Amer) 21.5 ml/min 03/10/23 06:58 Est GFR (Non-Af Amer) 18.6 ml/min 03/10/23 06:58 BUN/Creatinine Ratio 63.6 (10-20) H 03/10/23 06:58 Glucose 182 mg/dl (70-99(Fasting)) H 03/10/23 06:58 POC Glucose 189 mg/dl (70-99) H 03/10/23 07:09 Lactate 1.1 mmol/L (0.4-2.0) 02/25/23 20:49 Calcium 8.5 mg/dl (8.6-10.3) L 03/10/23 06:58 Phosphorus 3.5 mg/dl (2.5-4.9) 03/10/23 06:58 Magnesium 1.9 mg/dl (1.7-2.4) 03/10/23 06:58 Iron 35 mcg/dl (35-150) 03/03/23 05:57 TIBC 135 mcg/dl (250-450) L 03/03/23 05:57 Unsaturated IBC 100 mcg/dl (155-355) L 03/03/23 05:57 Transferrin % Sat 26 % (15-50) 03/03/23 05:57 Total Bilirubin 0.5 mg/dl (0.2-1.0) 03/07/23 06:21 AST 22 U/L (13-39) 03/07/23 06:21 ALT 15 U/L (7-52) 03/07/23 06:21 Alkaline Phosphatase 362 U/L (34-104) H 03/07/23 06:21 Total Creatine Kinase < 10 U/L (26-192) L 02/24/23 05:33 C-Reactive Protein 7.23 mg/dl (0-0.5) H 03/06/23 06:55 Total Protein 4.9 gm/dl (6.0-8.3) L 03/07/23 06:21 Albumin 2.1 gm/dl (3.4-5.0) L 03/07/23 06:21 Globulin 2.8 gm/dl (2.5-4.0) 03/07/23 06:21 Albumin/Globulin Ratio 0.8 (0.9-2) L 03/07/23 06:21 Triglycerides 138 mg/dl (0-150) 03/08/23 06:20 Procalcitonin 1.92 ng/ml (0-0.5) H 02/16/23 09:08 Urine Color Yellow 02/21/23 Unknown Urine Appearance Cloudy (Clear) A 02/21/23 Unknown Urine pH 5.5 (4.5-7.5) 02/21/23 Unknown Ur Specific [place] 1.013 (1.000-1.030) 02/21/23 Unknown Urine Protein 1+ (Negative) H 02/21/23 Unknown Urine Glucose (UA) Negative (Negative) 02/21/23 Unknown Urine Ketones Negative (Negative) 02/21/23 Unknown Urine Blood Trace (Negative) H 02/21/23 Unknown Urine Nitrite Negative (Negative) 02/21/23 Unknown Urine Bilirubin Negative (Negative) 02/21/23 Unknown Urine Urobilinogen Negative (Negative) 02/21/23 Unknown Ur Leukocyte Esterase Trace (Negative) H 02/21/23 Unknown Urine WBC (Auto) 10-30 /hpf (0-5) H 02/21/23 Unknown Urine RBC (Auto) 0-4 /hpf (0-4) 02/21/23 Unknown U Hyaline Cast (Auto) 5-10 /lpf (0-5) H 02/21/23 Unknown U Epithel Cells (Auto) >30 /lpf (0-5) H 02/21/23 Unknown Urine Bacteria (Auto) 1+ (Negative) H 02/21/23 Unknown Ur Renal Epithelial Cell 5-10 /lpf (0-5) H 02/21/23 Unknown Amorphous Sediment Present (None Prsent) A 02/21/23 Unknown Urine Yeast Budding (None Prsent) A 02/21/23 Unknown Urine Osmolality 306 mOsm/kg (500-800) L 02/19/23 18:30 Ur Random Creatinine 57.8 mg/dl 02/19/23 18:30 Ur Random Sodium 43 mmol/L 02/19/23 18:30 Stool Occult Bld Scrn Positive (Negative) A 03/06/23 06:23 A. phagocytophilum DNA Positive (Negative) A 02/17/23 07:27 Hep Bs Antigen NON-REACTIVE (NON-REACTIVE) 02/24/23 10:15 Hep Bs Ag Confirmation TNP 02/24/23 10:15 Hep Bs Antibody, Quant <5 mIU/mL (> OR = 10) L 02/24/23 10:15 Hep B Core IgM Ab NON-REACTIVE (NON-REACTIVE) 02/24/23 10:15 Blood Type O Positive 03/08/23 07:56 Antibody Screen NEGATIVE 03/08/23 07:56 Crossmatch See Detail 03/08/23 07:56 Impressions Abdomen/Pelvis CT 02/16/23 15:56 Exam(s): CT ABDOMEN + PELVIS With Contrast Oral - High Density Amt: gastrograffin, IV Amt: 93 ml opti 320 EXAM: CT Abdomen and Pelvis With Intravenous Contrast CLINICAL HISTORY: Reason for exam: Evaluate for post operative bowel resection leak. TECHNIQUE: Axial computed tomography images of the abdomen and pelvis with intravenous contrast. CTDI is 19.31 mGy and DLP is 914.33 mGy-cm. Automated exposure control was utilized for the study. A dose lowering technique was utilized adhering to the principles of ALARA. CONTRAST: Patient received gastrograffin of Oral - High Density and 93 ml opti 320 of IV contrast COMPARISON: No relevant prior studies available. FINDINGS: Lung bases: Unremarkable. No mass. No consolidation. ABDOMEN: Liver: Unremarkable. No mass. Gallbladder and bile ducts: Unremarkable. No calcified stones. No ductal dilation. Pancreas: Unremarkable. No mass. No ductal dilation. Spleen: Unremarkable. No splenomegaly. Adrenals: Unremarkable. No mass. Kidneys and ureters: Unremarkable. No solid mass. No hydronephrosis. Stomach and bowel: Diverticulosis, without acute diverticulitis. No obstruction. PELVIS: Appendix: No findings to suggest acute appendicitis. Bladder: Unremarkable. No mass. Reproductive: Hysterectomy. ABDOMEN and PELVIS: Intraperitoneal space: Postoperative free air in the abdomen. Bowel anastomosis in the RIGHT lower quadrant. There is mild free fluid at the anastomotic site however, no definite evidence of perforation (no extravasation of oral contrast into the peritoneum). Low index of suspicion for bowel leak. Bones/joints: Degenerative changes of the spine. No acute fracture. No dislocation. Soft tissues: Unremarkable. Vasculature: Atherosclerotic changes of the aorta. No abdominal aortic aneurysm. Lymph nodes: Unremarkable. No enlarged lymph nodes. Other findings: Recent midline laparotomy. IMPRESSION: Bowel anastomosis in the RIGHT lower quadrant. Mild free-fluid at the anastomotic site however, no definite evidence of perforation (no extravasation of oral contrast into the peritoneum). Low index of suspicion for bowel leak. Electronically signed by: Ranulfo Varela MD 02/16/23 21:57 PM Extremity Venous Study 02/21/23 16:00 ULTRASOUND LEFT UPPER EXTREMITY VENOUS CLINICAL HISTORY: Left arm pain and swelling. COMPARISON STUDY: No priors. TECHNIQUE: Real-time, grayscale, and color Doppler sonography of the deep veins of the left upper extremity is performed. Compression and augmentation were utilized. FINDINGS: There is no sonographic evidence of deep venous thrombosis identified in the left upper extremity. The left internal jugular, axillary, and brachial veins are patent and normally compressible. Normal venous waveforms and augmentation are seen within the left subclavian vein. The basilic vein is clear. There is occlusive superficial venous thrombosis identified in the cephalic vein, extending from the upper extremity to the mid forearm. This measures greater than 5 cm in length. The visualized radial and ulnar veins are patent. IMPRESSION: 1 There is no sonographic evidence of deep venous thrombosis identified in the left upper extremity. 2. Occlusive superficial venous thrombus within the cephalic vein as detailed above. ACT 112: Negative or not required by law. Electronically signed by: Justus Galdamez M.D. 02/21/2023 9:49 PM Chest X-Ray 03/02/23 12:31 SINGLE VIEW CHEST CLINICAL HISTORY: Dialysis catheter malfunction. FINDINGS: An AP, portable, upright chest radiograph is compared to study dated 02/26/2023 and correlated with chest CT dated 01/16/2023. The examination is degraded by portable technique and patient rotation. A right internal jugular central venous catheter is unchanged in position. The cardiomediastinal silhouette is top normal for projection noting atherosclerotic calcification of the thoracic aorta. Chronic interstitial thickening is previous. The lungs and pleural spaces are clear noting mild bibasilar scarring/atelectasis. No pneumothorax is seen. The skeletal structures are osteopenic. The bony thorax is grossly intact. IMPRESSION: No active disease in the chest. ACT 112: Negative or not required by law. Electronically signed by: Justus Galdamez M.D. 03/02/2023 2:45 PM Videofluoroscopic Swallow 03/03/23 10:00 VIDEO SWALLOW STUDY CLINICAL HISTORY: Aspiration. COMPARISON STUDY: No priors. FLUOROSCOPY TIME: 2.27 minutes. Ka,r: 10.5 mGy FINDINGS: Fluoroscopic guidance is provided to the department of speech pathology in performing a video swallow study. A dialysis catheter projects over the neck. The patient consumed barium impregnated pudding, cracker with paste, nectar-thick liquids, and thin barium while the swallowing mechanism was observed in real-time. There is aspiration with cough reflex seen with thin barium. Silent aspiration was seen with residuals on the nectar-thick liquid texture. No aspiration was seen with the pudding or cracker with paste textures. Silent aspiration was seen with thin barium wash at the end of the procedure. IMPRESSION: 1. Aspiration was seen with the thin barium and nectar-thick liquid textures. 2. See dedicated speech pathology report for detailed findings and recommendations. Dictated: 03/03/2023 12:45 PM Transcribed: 03/03/2023 12:54 PM Brian [id number] [email or web address] Electronically signed by: Justus Galdamez M.D. 03/03/2023 2:08 PM PG Care Time/CCT Total # of Minutes Spent Total Time Spent with Patient: Total time spent is greater than 50% in coordination of care (as documented) at patient's floor/unit and/or counseling patient: Coding Level of Care Code 35479 INT INP/OBS CARE 3/75MIN Diagnoses H/O right hemicolectomy Z90.49 Colon cancer C18.9 Melena K92.1 Acute blood loss anemia D62
[2023-03-10] MEDS: LANTUS PER UNIT CHARGE SC SCH ×2 (09:58→20:27)
[2023-03-10 10:39] LABS: Partial Thromboplastin Ratio 0.9; Partial Thromboplastin Time 24.3 Seconds (21.0-31.0); Prothrombin Time 11.1 Seconds (9.0-12.0)
[2023-03-10] MEDS: PANTOprazole 40 MG in SYRINGE 0 ML IV SCH ×2 (11:20→20:21)
[2023-03-10] MEDS ORDERED: PROPOFOL IV EMULSION 10 MG/ML 20 ML VIAL IV ONE (15:21)
[2023-03-10] MEDS ORDERED: LIDOCAINE 2% 2 ML VIAL/AMP(20MG/ML) INFIL ONE ×2 (15:21)
[2023-03-10] MEDS ORDERED: [UNRECOGNIZED DRUG - OTHER] IV SCH (16:00)
[2023-03-10] MEDS ORDERED: CENTRAL TPN IV SCH (16:00)
--- NOTE | 2023-03-10 16:15 | GI REPORT ---
Patient Name: Keren Hull Procedure Date: 03/10/2023 3:59 PM Date of : 1935 Admit Type: Inpatient Age: 87 Gender: Female Attending MD: Gordon Rhodes MD, Procedure: Upper GI endoscopy Providers: Gordon Rhodes MD Referring MD: Javier Mary Indications: Melena Medicines: Monitored Anesthesia Care Complications: No immediate complications. Estimated blood loss: None. Estimated Blood Loss: Estimated blood loss: none. Procedure: Pre-Anesthesia Assessment: - Prior Anticoagulants: The patient has taken no anticoagulant or antiplatelet agents. - ASA Grade Assessment: IV - A patient with severe systemic disease that is a constant threat to life. After obtaining informed consent, the endoscope was passed under direct vision. Throughout the procedure, the patient's blood pressure, pulse, and oxygen saturations were monitored continuously. The Endoscope was introduced through the mouth, and advanced to the second part of duodenum. The upper GI endoscopy was accomplished without difficulty. The patient tolerated the procedure well. Findings: The examined esophagus was normal. One non-bleeding cratered gastric ulcer with no stigmata of bleeding was found in the gastric fundus. Biopsies were taken with a cold forceps for Helicobacter pylori testing. Estimated blood loss: none. Diffuse moderate mucosal changes characterized by granularity and inflammation were found in the duodenal bulb. Biopsies were taken with a cold forceps for histology. Estimated blood loss: none. no active bleeding throughout entire procedure. Impression: - Normal esophagus. - Non-bleeding gastric ulcer with no stigmata of bleeding. Biopsied. - Mucosal changes in the duodenum. Biopsied. Recommendation: - Return patient to [facility] for ongoing care. - Advance diet as tolerated today. - Await pathology results. -protonix 40 mg daily -repeat EGD in 8-12 weeks to assess for ulcer healing Gordon Rhodes MD 03/10/2023 4:14:30 PM This report has been signed electronically. Note Initiated On: 03/10/2023 3:59 PM Number of Addenda: 0 I attest to the content of the Intraoperative Record and orders documented therein, exceptions below {[id number]}
--- NOTE | 2023-03-10 16:28 | Anesthesiology Progress Note ---
Date of Service March 10, 2023 Anesthesia Post Procedure Vital Signs Vital Signs: Temp Pulse Pulse Pulse Resp BP BP 03/10/23 16:14 83 20 149/68 H 03/10/23 15:51 98 F 86 22 172/86 H 03/10/23 15:24 98.4 F 81 18 179/82 H 03/10/23 15:02 98.4 F 83 18 172/85 H 03/10/23 15:00 87 03/10/23 14:02 97.7 F 81 20 175/89 H 03/10/23 13:32 97.7 F 89 18 164/82 H 03/10/23 13:17 97.7 F 87 18 164/76 H 03/10/23 13:01 97.7 F 85 20 161/79 H 03/10/23 12:33 97.7 F 81 18 164/69 H 03/10/23 12:22 97.5 F L 78 16 164/69 H 03/10/23 11:22 97.5 F L 78 16 159/68 H 03/10/23 10:52 97.7 F 77 18 174/76 H 03/10/23 10:37 97.5 F L 83 18 156/71 H 03/10/23 10:20 98.2 F 85 16 154/64 H 03/10/23 09:00 84 03/10/23 09:00 03/10/23 07:06 97.7 F 78 18 146/65 H 03/10/23 02:24 98.2 F 82 18 03/09/23 23:05 98.1 F 79 18 03/09/23 22:01 84 03/09/23 19:21 98.2 F 83 18 03/09/23 17:10 BP Pulse Ox O2 Del Method O2 Flow Rate 03/10/23 16:14 100 Oxymask 10 03/10/23 15:51 100 Room Air 03/10/23 15:24 99 03/10/23 15:02 100 03/10/23 15:00 03/10/23 14:02 100 03/10/23 13:32 100 03/10/23 13:17 98 03/10/23 13:01 100 03/10/23 12:33 100 03/10/23 12:22 100 03/10/23 11:22 100 03/10/23 10:52 97 03/10/23 10:37 97 03/10/23 10:20 98 03/10/23 09:00 03/10/23 09:00 Room Air 03/10/23 07:06 97 Room Air 03/10/23 02:24 134/58 L 99 Room Air 03/09/23 23:05 129/56 L 97 Room Air 03/09/23 22:01 03/09/23 19:21 134/61 100 Room Air 03/09/23 17:10 158/85 H Pain Intensity Abdomen: Pain Intensity: 7 Transfer of Care Handoff Completed per policy Notes Mental Status: alert / awake / arousable and participated in evaluation Patient Amnestic to Procedure: Yes Nausea / Vomiting: adequately controlled Pain: adequately controlled Airway Patency, RR, SpO2: stable & adequate BP & HR: stable & adequate Hydration State: stable & adequate Anesthetic Complications: no major complications apparent and Pt Satisfied with anesthetic care
[2023-03-10] MEDS: ACETAMINOPHEN 500 MG TAB PO PRN (20:21)
[2023-03-10] MEDS: VORTIOXETINE HYDROBROMIDE 10 MG PO SCH (20:21)
[2023-03-11 00:56] LABS: Hematocrit (blood only) 23.2 % (37.0-47.0); Hemoglobin 7.9 g/dl (12.0-16.0); Mean Corpuscular Hgb Conc 34.1 g/dL (32.0-36.0); Mean Corpuscular Volume 85.3 fL (80.0-100.0); Mean Platelet Volume 11.7 fL (9.4-12.4); Platelet Count 170 K/uL (130-400); RDW Coefficient of Variation 15.6 % (11.5-14.5); RDW Standard Deviation 47.8 fL (36.4-46.3); Red Blood Count 2.72 M/uL (4.20-5.40); White Blood Count 11.14 K/ul (4.8-10.8)
[2023-03-11 06:17] LABS: Hematocrit (blood only) 21.5 % (37.0-47.0); Hemoglobin 7.4 g/dl (12.0-16.0); Mean Corpuscular Hemoglobin 29.4 pg (25.0-34.0); Mean Corpuscular Hgb Conc 34.4 g/dL (32.0-36.0); Mean Corpuscular Volume 85.3 fL (80.0-100.0); Mean Platelet Volume 11.8 fL (9.4-12.4); Nucleated RBC # (auto) 0.03 K/uL (0.00-0.12); Nucleated RBC % (auto) 0.2 %; Platelet Count 168 K/uL (130-400); RDW Coefficient of Variation 15.8 % (11.5-14.5); RDW Standard Deviation 48.4 fL (36.4-46.3); Red Blood Count 2.52 M/uL (4.20-5.40); White Blood Count 12.27 K/ul (4.8-10.8)
[2023-03-11 07:01] LABS: BUN Creatinine Ratio 67.4 (10-20); Calcium 8.2 mg/dl (8.6-10.3); Creatinine Clr Calc Pharmacy 18.3 ml/min; Est GFR (African American) 23.1 ml/min; Est GFR (Non-African American) 19.9 ml/min; Magnesium 1.7 mg/dl (1.7-2.4); Phosphorus 3.9 mg/dl (2.5-4.9); Potassium 4.7 mmol/L (3.5-5.1)
--- NOTE | 2023-03-11 07:03 | Hospitalist Progress Note ---
Date of Service March 11, 2023 Assessment & Plan (1) Elevated blood pressure reading: Plan: Pt is an 87 y/o female with PMH of DM, colon cancer, TIA (2021), dementia, chronic low back pain, CKD, and HLD presenting to the hospital for right hemicolectomy. Initial surgery 02/06. Returned to the OR 02/19 for ischemic bowel resection and ileostomy creation. #Anemia #Coagulability #Bleeding #Heme Positive Stool -Anticoagulation held with concern for acute bleed - EGD 03/11 without source of bleeding - Hbg= 7.4 after 3 units pRBC 03/10; plan to repeat at 1300 and if continues to drop consider reg red blood cell scan to look for source of bleeding #Severe Sepsis with VRE and ESBL #Leukocytosis -Patient with clinical deterioration and severe sepsis starting 02/16 secondary to bowel leak. -Patient now s/p ischemic bowel resection with ileostomy creation 02/19. Peritoneal fluid growing VRE E. faecium and ESBL. - Open wound noted on abdomen; wound vac in place completed 14 days of coverage for cultured bacteria #ARCELIA on CKD IV #ATN -Baseline Cr ~ 1.6-1.7. -overall improving; creatine continues to trend down - nephrology consulted an appreciate recommendations #Elevated BP -Patient with elevated blood pressure most likely secondary to recent surgery and pain. -Was initially started on amlodipine 5 mg during this admission. -We will hold for now due to risk of becoming hypotensive, more lethargic --> want to maintain perfusion; spikes in BP have been asymptomatic #A fib with RVR -Patient without a history of atrial fibrillation, had a bout on 02/20. -Heparin SQ BID for VTE ppx currently held with concern for GI bleed #Parental Nutrition -Pharmacy/Dietary on board. TPN through central access. -Ostomy functioning. 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 -Completed 10 day course of doxycycline #Dementia -Continue Seroquel 12.5 mg and donepezil 5 mg QHS #Insulin Dependent Diabetes Mellitus -SSI while hospitalized. Resume home dosing on discharge #Depression -hold vortioxetine; some research this could make hypocoagulable #OAB -oxybutynin currently being held; if continues to tolerate PO intact could resume #HLD -Statin held while on daptomycin #History of TIA - clopidogrel currently being held Code Status: Patient does have a living will stating DNR/DNI etc. This does not currently apply as patient presented for elective procedure. Full code in the setting of complications from recent procedure. Lines: PIV x1, tunneled dialysis catheter, Vera Diet: Full liquid DVT ppx: heparin BID held due to concern for upper GI bleed (2) Chronic kidney disease, stage IV (severe): (3) Anastomotic leak of intestine: (4) Atrial fibrillation with rapid ventricular response: (5) On parenteral nutrition: Admission and Anticipated Discharge Date Admission Date: February 06, 2023 Supervising Physician Co-Signing Physician Notes Attending attestation Pt seen and examined in concert with Dr. Gr. In agreement with the docum ented findings as noted in the resident documentation with any exceptions or additions as noted here. Findings concerning for ongoing GIB without current hemodynamic instability. On examination: S1/S2 nl RRR no MCG. CTAB. Abd NT/ND BS+ve Anemia, blood loss in the setting of melena/GIB - GI/surgery consult - Repeat transfusion - continue PPI, d/c SSRI. tagged red cell scan with potential for transfer for definitive intervention with decreased hgb ARCELIA on CKDIV w/ ATN - nephro consult appreciated. Baseline Cr 1.6. Continue to trend Severe sepsis with VRE, ESBL - completed course of abx therapy AF h/o RVR - heparin held for GIB/procedure Else see resident documentation as noted. Subjective Mrs. Hull was sitting up drinking water when I saw her this morning. Fatigued, but otherwise no complaints. Review of Systems Review of Systems: As per above Physical Exam Physical Exam: Constitutional: well-appearing, no acute distress HEENT: NCAT, no conjunctival injection CV: regular rhythm, no murmur appreciated, extremities well-perfused Resp: CTABL, no wheezes/rales/rhonchi appreciated, no increased work of breathing GI: ostomy in place with dark output, wound vac in place MSK: no gross deformities appreciated Skin: warm, dry, no rash appreciated Neuro: alert, oriented, no focal neurologic deficit appreciated Results & Data Results & Data Vital Signs (Past 12 Hours) Vital Signs Temp Pulse Pulse Pulse Resp BP BP 03/11/23 06:00 73 03/11/23 02:42 37 C 89 18 124/59 L 03/10/23 23:25 37 C 78 18 152/78 H 03/10/23 22:53 76 03/10/23 21:00 80 14 03/10/23 19:50 36.5 C 14 148/78 H 03/10/23 19:42 36.5 C 90 16 164/91 H Pulse Ox O2 Del Method 03/11/23 06:00 99 Room Air 03/11/23 02:42 98 Room Air 03/10/23 23:25 95 Room Air 03/10/23 22:53 03/10/23 21:00 98 Room Air 03/10/23 19:50 100 03/10/23 19:42 97 Resident Activity Tracking Resident Involvement: Resident Care Provided Care Provided: Adult Hospital Medicine
[2023-03-11] MEDS: INSULIN ASPART PER UNIT CHARGE SC SCH ×4 (07:54→20:24)
--- NOTE | 2023-03-11 08:30 | Surgery Progress Note ---
Date of Service March 11, 2023 Assessment & Plan (1) H/O right hemicolectomy: Plan: nothing to add surgically Continue supportive care. We may reach out to speech and swallowing again to see when we could attempt advancing her diet. It would be ideal to get her off of TPN Admission and Anticipated Discharge Date Admission Date: February 06, 2023 Subjective pt resting quietly....stoma functioning. Physical Exam Physical Exam: vac in place stoma functioning. Results & Data Vital Signs (Past 12 Hours) Vital Signs Temp Pulse Pulse Pulse Resp BP Pulse Ox 03/11/23 06:00 73 99 03/11/23 02:42 37 C 89 18 124/59 L 98 03/10/23 23:25 37 C 78 18 152/78 H 95 03/10/23 22:53 76 03/10/23 21:00 80 14 98 O2 Del Method 03/11/23 06:00 Room Air 03/11/23 02:42 Room Air 03/10/23 23:25 Room Air 03/10/23 22:53 03/10/23 21:00 Room Air PG Care Time/CCT Total # of Minutes Spent Total Time Spent with Patient: Total time spent is greater than 50% in coordination of care (as documented) at patient's floor/unit and/or counseling patient: Coding Level of Care Code 96565 Post Operative Follow-Up Diagnoses H/O right hemicolectomy Z90.49
[2023-03-11] MEDS: PANTOprazole 40 MG in SYRINGE 0 ML IV SCH ×2 (08:35→20:25)
[2023-03-11] MEDS: LANTUS PER UNIT CHARGE SC SCH ×2 (08:35→20:24)
--- NOTE | 2023-03-11 08:38 | Nephrology Progress Note ---
Date of Service March 11, 2023 Assessment & Plan (1) Acute kidney injury: Plan: * Non-oliguric. UO 2850 cc last 24 hours. Creatinine is trending down, 2.4-->2.1 this am. Patient is oxygenating well on RA. She remains within the recovery phase of ARCELIA and is nearing her baseline Cr of 1.6 * Hold diuretic, patient is diuresing on her own * Will consult Vascular Surgery for removal of R IJ TCC * Document strict I/O's and repeat metabolic profile tomorrow AM. (2) Chronic kidney disease, stage III (moderate): Plan: * CKD stage G3/A2. Baseline Cr 1.3-1.6. CKD attributed to hypertension and DKD. (3) Anemia: Plan: * Recommend transfusion to maintain Hgb > 8.0 * EGD 03/10/23 revealed nonbleeding gastric ulcer (4) Anastomotic leak of intestine: Plan: * Adenocarcinoma of the colon s/p R open hemicolectomy 02/06/23. On post-op day #10 developed a signs of sepsis. Exploratory laparotomy revealed an anastomotic leak/perforation and had resection of the anastomosis w/ creation of an end ileostomy. * Remains on parental nutrition. Admission and Anticipated Discharge Date Admission Date: February 06, 2023 Subjective Mrs. Hull was evaluated in her hospital room this morning. She denies abdominal discomfort, N/V, hematemesis. EGD yesterday revealed a non-bleeding gastric ulcer Review of Systems Constitutional: no fever Eyes: no problem reported Ear, Nose, Mouth, Throat: no problem reported Respiratory: no cough and no dyspnea Cardiovascular: no chest pain Gastrointestinal: no nausea and no vomiting Physical Exam Constitutional: + frail appearing Eyes: PERRL, conjunctivae normal, anicteric sclerae ENMT: external ear and nose normal, oropharynx normal Neck: trachea midline, no thyromegaly Respiratory: normal respiratory effort, lungs clear to auscultation Cardiovascular: RRR, no murmur, no edema Rate/Rhythm: regular rate and regular rhythm Extremities: + edema (2+ dependent edema) Gastrointestinal (Abdomen): Inspection/Auscultation: + hypoactive bowel sounds Skin: no rashes, warm and dry Neurologic: Speech / Cognition: normal speech and normal cognition Results & Data Vital Signs (Past 12 Hours) Vital Signs Temp Pulse Pulse Pulse Resp BP Pulse Ox 03/11/23 06:00 73 99 03/11/23 02:42 37 C 89 18 124/59 L 98 03/10/23 23:25 37 C 78 18 152/78 H 95 03/10/23 22:53 76 03/10/23 21:00 80 14 98 O2 Del Method 03/11/23 06:00 Room Air 03/11/23 02:42 Room Air 03/10/23 23:25 Room Air 03/10/23 22:53 03/10/23 21:00 Room Air Laboratory Results Laboratory Results - last 24 hr 02/26/23 03/08/23 03/10/23 07:20 07:56 06:58 WBC 10.75 RBC 2.05 L Hgb 5.9 L* Hct 17.5 L* MCV 85.4 MCH 28.8 MCHC 33.7 RDW Std Deviation 49.0 H RDW Coeff of Mari 15.7 H Plt Count 211 MPV 11.7 Absolute Nucleated RBC 0.02 Nucleated RBC % (auto) 0.2 PT INR APTT PTT Ratio Sodium 140 Potassium 4.4 Chloride 105 Carbon Dioxide 27 Anion Gap 8 BUN 145 H Creatinine 2.28 H Est Cr Clr Drug Dosing 17.3 Est GFR ( Amer) 21.5 Est GFR (Non-Af Amer) 18.6 BUN/Creatinine Ratio 63.6 H Glucose 182 H POC Glucose Calcium 8.5 L Phosphorus 3.5 Magnesium 1.9 Blood Type O Positive Antibody Screen NEGATIVE Crossmatch See Detail See Detail 03/10/23 03/10/23 03/10/23 09:57 11:17 16:57 WBC RBC Hgb Hct MCV MCH MCHC RDW Std Deviation RDW Coeff of Mari Plt Count MPV Absolute Nucleated RBC Nucleated RBC % (auto) PT 11.1 INR 1.0 APTT 24.3 PTT Ratio 0.9 Sodium Potassium Chloride Carbon Dioxide Anion Gap BUN Creatinine Est Cr Clr Drug Dosing Est GFR ( Amer) Est GFR (Non-Af Amer) BUN/Creatinine Ratio Glucose POC Glucose 185 H 199 H Calcium Phosphorus Magnesium Blood Type Antibody Screen Crossmatch 03/10/23 03/11/23 03/11/23 20:05 00:25 05:54 WBC 11.14 H 12.27 H RBC 2.72 L 2.52 L Hgb 7.9 L 7.4 L Hct 23.2 L 21.5 L MCV 85.3 85.3 MCH 29.0 29.4 MCHC 34.1 34.4 RDW Std Deviation 47.8 H 48.4 H RDW Coeff of Mari 15.6 H 15.8 H Plt Count 170 168 MPV 11.7 11.8 Absolute Nucleated RBC 0.03 Nucleated RBC % (auto) 0.2 PT INR APTT PTT Ratio Sodium 137 Potassium 4.7 Chloride 106 Carbon Dioxide 24 Anion Gap 7 BUN 145 H Creatinine 2.15 H Est Cr Clr Drug Dosing 18.3 Est GFR ( Amer) 23.1 Est GFR (Non-Af Amer) 19.9 BUN/Creatinine Ratio 67.4 H Glucose 286 H POC Glucose 185 H Calcium 8.2 L Phosphorus 3.9 Magnesium 1.7 Blood Type Antibody Screen Crossmatch 03/11/23 07:17 WBC RBC Hgb Hct MCV MCH MCHC RDW Std Deviation RDW Coeff of Mari Plt Count MPV Absolute Nucleated RBC Nucleated RBC % (auto) PT INR APTT PTT Ratio Sodium Potassium Chloride Carbon Dioxide Anion Gap BUN Creatinine Est Cr Clr Drug Dosing Est GFR ( Amer) Est GFR (Non-Af Amer) BUN/Creatinine Ratio Glucose POC Glucose 318 H* Calcium Phosphorus Magnesium Blood Type Antibody Screen Crossmatch PG Care Time/CCT Total # of Minutes Spent Total Time Spent with Patient: Total time spent is greater than 50% in coordination of care (as documented) at patient's floor/unit and/or counseling patient: Coding Level of Care Code 38956 SUB INP/OBS CARE 3/50MIN Diagnoses Acute kidney injury N17.9 Chronic kidney disease, stage III (moderate) N18.30 Anemia D64.9 Anemia type: unspecified type Anastomotic leak of intestine K91.89 (3) Anemia Anemia type: unspecified type Qualified Code(s): D64.9 - Anemia, unspecified
[2023-03-11] MEDS ORDERED: INSULIN HUMAN REGULAR PER UNIT 5 UNITS in SYRINGE 4.95 ML IV ONE (10:15)
--- NOTE | 2023-03-11 10:20 | Gastroenterology Progress Note ---
Date of Service March 11, 2023 Assessment & Plan (1) H/O right hemicolectomy: (2) Colon cancer: (3) Melena: (4) Acute blood loss anemia: Plan Patient is a 87 y.o. female with a history of colon cancer s/p right hemicolectomy with subsequent ileostomy placement due to anastomotic leak, now with acute blood loss anemia and melena. -No source of active bleeding on upper endoscopy. Consider CT imaging for further evaluation. -Recommend blood transfusion to maintain hgb ~8. -Continue Pantoprazole 40 mg IV BID. -EGD 6-8 weeks. -Continue supportive care. Thank you for allowing us to participate in the care of this patient. If you have any questions or concerns, please do not hesitate to contact us. Admission and Anticipated Discharge Date Admission Date: February 06, 2023 Subjective Patient is status post EGD without findings of source of active GIB. Noted clean based gastric ulcer but continues with gordon, melanotic stools per ileostomy with some clots. H&H did drop slightly from 7.9/23.2 yesterday post transfusion to 7.4/21.5 today. Wound vac dressing was being changed by wound nurses at the time of evaluation. Review of Systems Review of Systems: Unobtainable due to reduced consciousness Physical Exam Constitutional: + frail appearing; no acute distress Respiratory: normal respiratory effort Gastrointestinal (Abdomen): Ostomy RLQ with gordon stool. Open wound right lateral position to ostomy that was without gross bleeding. Skin: + pallor Results & Data Results & Data Vital Signs (Past 12 Hours) Vital Signs Temp Pulse Pulse Pulse Resp BP Pulse Ox 03/11/23 08:51 36.5 C 87 12 161/73 H 83 L 03/11/23 06:00 73 99 03/11/23 02:42 37 C 89 18 124/59 L 98 03/10/23 23:25 37 C 78 18 152/78 H 95 03/10/23 22:53 76 O2 Del Method 03/11/23 08:51 Room Air 03/11/23 06:00 Room Air 03/11/23 02:42 Room Air 03/10/23 23:25 Room Air 03/10/23 22:53 Diagnostic Findings Laboratory Results WBC 12.27 K/ul (4.8-10.8) H 03/11/23 05:54 RBC 2.52 M/uL (4.20-5.40) L 03/11/23 05:54 Hgb 7.4 g/dl (12.0-16.0) L 03/11/23 05:54 Hct 21.5 % (37.0-47.0) L 03/11/23 05:54 MCV 85.3 fL (80.0-100.0) 03/11/23 05:54 MCH 29.4 pg (25.0-34.0) 03/11/23 05:54 MCHC 34.4 g/dL (32.0-36.0) 03/11/23 05:54 RDW Std Deviation 48.4 fL (36.4-46.3) H 03/11/23 05:54 RDW Coeff of Mari 15.8 % (11.5-14.5) H 03/11/23 05:54 Plt Count 168 K/uL (130-400) 03/11/23 05:54 MPV 11.8 fL (9.4-12.4) 03/11/23 05:54 Immature Gran % (Auto) 4.3 % 03/08/23 06:20 Neut % (Auto) 74.7 % 03/08/23 06:20 Lymph % (Auto) 7.5 % 03/08/23 06:20 [place] % (Auto) 10.8 % 03/08/23 06:20 Eos % (Auto) 2.5 % 03/08/23 06:20 Baso % (Auto) 0.2 % 03/08/23 06:20 Neut # (Auto) 6.59 K/uL (1.40-6.50) H 03/08/23 06:20 Lymph # (Auto) 0.66 K/uL (1.20-3.40) L 03/08/23 06:20 [place] # (Auto) 0.95 K/uL (0.11-0.59) H 03/08/23 06:20 Eos # (Auto) 0.22 K/uL (0.00-0.50) 03/08/23 06:20 Baso # (Auto) 0.02 K/uL (0.00-0.20) 03/08/23 06:20 Immature Gran # (Auto) 0.38 K/uL (0.01-0.20) H 03/08/23 06:20 Absolute Nucleated RBC 0.03 K/uL (0.00-0.12) 03/11/23 05:54 Nucleated RBC % (auto) 0.2 % 03/11/23 05:54 Neutrophils % (Manual) 72 % 02/25/23 20:49 Lymphocytes % (Manual) 7 % 02/25/23 20:49 Monocytes % (Manual) 9 % 02/25/23 20:49 Eosinophils % (Manual) 4 % 02/25/23 20:49 Metamyelocytes % (Man) 4 % 02/25/23 20:49 Myelocytes % (Man) 4 % 02/25/23 20:49 Plasma Cell % (Manual) 2 % 02/23/23 05:58 Neutrophils # (Manual) 17.55 K/uL (1.40-6.50) H 02/25/23 20:49 Total Absolute Neuts 17.55 K/uL (1.4-6.5) H 02/25/23 20:49 Lymphocytes # (Manual) 1.71 K/uL (1.2-3.4) 02/25/23 20:49 Total Abs Lymphocytes 1.71 K/uL (1.2-3.4) 02/25/23 20:49 Monocytes # (Manual) 2.19 K/uL (0.11-0.59) H 02/25/23 20:49 Eosinophils # (Manual) 0.98 K/uL (0-0.50) H 02/25/23 20:49 Metamyelocytes # (Man) 0.98 K/uL (0-0) H 02/25/23 20:49 Myelocytes # (Manual) 0.98 K/uL (0-0) H 02/25/23 20:49 Plasma Cell # (Manual) 0.40 K/uL (0-0) H 02/23/23 05:58 Hypersegmented Neuts 1+ 02/24/23 05:33 Blood Smear Review 02/17/23 07:27 Toxic Vacuolation 1+ 02/18/23 06:49 Platelet Estimate Normal (Normal) 03/05/23 06:59 RBC Morphology Unremarkable 03/04/23 06:25 Hypochromasia Present 02/09/23 07:10 Polychromasia 1+ 03/08/23 06:20 Basophilic Stippling 1+ 03/06/23 06:55 Spherocytes 1+ 03/01/23 07:43 Echinocytes 1+ 02/25/23 20:49 Rouleaux 1+ 03/07/23 06:21 PT 11.1 Seconds (9.0-12.0) 03/10/23 09:57 INR 1.0 (0.9-1.1) 03/10/23 09:57 APTT 24.3 Seconds (21.0-31.0) 03/10/23 09:57 PTT Ratio 0.9 03/10/23 09:57 Sodium 137 mmol/L (136-145) 03/11/23 05:54 Potassium 4.7 mmol/L (3.5-5.1) 03/11/23 05:54 Chloride 106 mmol/L (98-107) 03/11/23 05:54 Carbon Dioxide 24 mmol/L (21-32) 03/11/23 05:54 Anion Gap 7 (3-11) 03/11/23 05:54 BUN 145 mg/dl (6-23) H 03/11/23 05:54 Creatinine 2.15 mg/dl (0.6-1.2) H 03/11/23 05:54 Est Cr Clr Drug Dosing 18.3 ml/min 03/11/23 05:54 Est GFR ( Amer) 23.1 ml/min 03/11/23 05:54 Est GFR (Non-Af Amer) 19.9 ml/min 03/11/23 05:54 BUN/Creatinine Ratio 67.4 (10-20) H 03/11/23 05:54 Glucose 286 mg/dl (70-99(Fasting)) H 03/11/23 05:54 POC Glucose 301 mg/dl (70-99) H* 03/11/23 09:31 Lactate 1.1 mmol/L (0.4-2.0) 02/25/23 20:49 Calcium 8.2 mg/dl (8.6-10.3) L 03/11/23 05:54 Phosphorus 3.9 mg/dl (2.5-4.9) 03/11/23 05:54 Magnesium 1.7 mg/dl (1.7-2.4) 03/11/23 05:54 Iron 35 mcg/dl (35-150) 03/03/23 05:57 TIBC 135 mcg/dl (250-450) L 03/03/23 05:57 Unsaturated IBC 100 mcg/dl (155-355) L 03/03/23 05:57 Transferrin % Sat 26 % (15-50) 03/03/23 05:57 Total Bilirubin 0.5 mg/dl (0.2-1.0) 03/07/23 06:21 AST 22 U/L (13-39) 03/07/23 06:21 ALT 15 U/L (7-52) 03/07/23 06:21 Alkaline Phosphatase 362 U/L (34-104) H 03/07/23 06:21 Total Creatine Kinase < 10 U/L (26-192) L 02/24/23 05:33 C-Reactive Protein 7.23 mg/dl (0-0.5) H 03/06/23 06:55 Total Protein 4.9 gm/dl (6.0-8.3) L 03/07/23 06:21 Albumin 2.1 gm/dl (3.4-5.0) L 03/07/23 06:21 Globulin 2.8 gm/dl (2.5-4.0) 03/07/23 06:21 Albumin/Globulin Ratio 0.8 (0.9-2) L 03/07/23 06:21 Triglycerides 138 mg/dl (0-150) 03/08/23 06:20 Procalcitonin 1.92 ng/ml (0-0.5) H 02/16/23 09:08 Urine Color Yellow 02/21/23 Unknown Urine Appearance Cloudy (Clear) A 02/21/23 Unknown Urine pH 5.5 (4.5-7.5) 02/21/23 Unknown Ur Specific [place] 1.013 (1.000-1.030) 02/21/23 Unknown Urine Protein 1+ (Negative) H 02/21/23 Unknown Urine Glucose (UA) Negative (Negative) 02/21/23 Unknown Urine Ketones Negative (Negative) 02/21/23 Unknown Urine Blood Trace (Negative) H 02/21/23 Unknown Urine Nitrite Negative (Negative) 02/21/23 Unknown Urine Bilirubin Negative (Negative) 02/21/23 Unknown Urine Urobilinogen Negative (Negative) 02/21/23 Unknown Ur Leukocyte Esterase Trace (Negative) H 02/21/23 Unknown Urine WBC (Auto) 10-30 /hpf (0-5) H 02/21/23 Unknown Urine RBC (Auto) 0-4 /hpf (0-4) 02/21/23 Unknown U Hyaline Cast (Auto) 5-10 /lpf (0-5) H 02/21/23 Unknown U Epithel Cells (Auto) >30 /lpf (0-5) H 02/21/23 Unknown Urine Bacteria (Auto) 1+ (Negative) H 02/21/23 Unknown Ur Renal Epithelial Cell 5-10 /lpf (0-5) H 02/21/23 Unknown Amorphous Sediment Present (None Prsent) A 02/21/23 Unknown Urine Yeast Budding (None Prsent) A 02/21/23 Unknown Urine Osmolality 306 mOsm/kg (500-800) L 02/19/23 18:30 Ur Random Creatinine 57.8 mg/dl 02/19/23 18:30 Ur Random Sodium 43 mmol/L 02/19/23 18:30 Stool Occult Bld Scrn Positive (Negative) A 03/06/23 06:23 A. phagocytophilum DNA Positive (Negative) A 02/17/23 07:27 Hep Bs Antigen NON-REACTIVE (NON-REACTIVE) 02/24/23 10:15 Hep Bs Ag Confirmation TNP 02/24/23 10:15 Hep Bs Antibody, Quant <5 mIU/mL (> OR = 10) L 02/24/23 10:15 Hep B Core IgM Ab NON-REACTIVE (NON-REACTIVE) 02/24/23 10:15 Blood Type O Positive 03/08/23 07:56 Antibody Screen NEGATIVE 03/08/23 07:56 Crossmatch See Detail 03/08/23 07:56 Impressions Abdomen/Pelvis CT 02/16/23 15:56 Exam(s): CT ABDOMEN + PELVIS With Contrast Oral - High Density Amt: gastrograffin, IV Amt: 93 ml opti 320 EXAM: CT Abdomen and Pelvis With Intravenous Contrast CLINICAL HISTORY: Reason for exam: Evaluate for post operative bowel resection leak. TECHNIQUE: Axial computed tomography images of the abdomen and pelvis with intravenous contrast. CTDI is 19.31 mGy and DLP is 914.33 mGy-cm. Automated exposure control was utilized for the study. A dose lowering technique was utilized adhering to the principles of ALARA. CONTRAST: Patient received gastrograffin of Oral - High Density and 93 ml opti 320 of IV contrast COMPARISON: No relevant prior studies available. FINDINGS: Lung bases: Unremarkable. No mass. No consolidation. ABDOMEN: Liver: Unremarkable. No mass. Gallbladder and bile ducts: Unremarkable. No calcified stones. No ductal dilation. Pancreas: Unremarkable. No mass. No ductal dilation. Spleen: Unremarkable. No splenomegaly. Adrenals: Unremarkable. No mass. Kidneys and ureters: Unremarkable. No solid mass. No hydronephrosis. Stomach and bowel: Diverticulosis, without acute diverticulitis. No obstruction. PELVIS: Appendix: No findings to suggest acute appendicitis. Bladder: Unremarkable. No mass. Reproductive: Hysterectomy. ABDOMEN and PELVIS: Intraperitoneal space: Postoperative free air in the abdomen. Bowel anastomosis in the RIGHT lower quadrant. There is mild free fluid at the anastomotic site however, no definite evidence of perforation (no extravasation of oral contrast into the peritoneum). Low index of suspicion for bowel leak. Bones/joints: Degenerative changes of the spine. No acute fracture. No dislocation. Soft tissues: Unremarkable. Vasculature: Atherosclerotic changes of the aorta. No abdominal aortic aneurysm. Lymph nodes: Unremarkable. No enlarged lymph nodes. Other findings: Recent midline laparotomy. IMPRESSION: Bowel anastomosis in the RIGHT lower quadrant. Mild free-fluid at the anastomotic site however, no definite evidence of perforation (no extravasation of oral contrast into the peritoneum). Low index of suspicion for bowel leak. Electronically signed by: Ranulfo Varela MD 02/16/23 21:57 PM Extremity Venous Study 02/21/23 16:00 ULTRASOUND LEFT UPPER EXTREMITY VENOUS CLINICAL HISTORY: Left arm pain and swelling. COMPARISON STUDY: No priors. TECHNIQUE: Real-time, grayscale, and color Doppler sonography of the deep veins of the left upper extremity is performed. Compression and augmentation were utilized. FINDINGS: There is no sonographic evidence of deep venous thrombosis identified in the left upper extremity. The left internal jugular, axillary, and brachial veins are patent and normally compressible. Normal venous waveforms and augmentation are seen within the left subclavian vein. The basilic vein is clear. There is occlusive superficial venous thrombosis identified in the cephalic vein, extending from the upper extremity to the mid forearm. This measures greater than 5 cm in length. The visualized radial and ulnar veins are patent. IMPRESSION: 1 There is no sonographic evidence of deep venous thrombosis identified in the left upper extremity. 2. Occlusive superficial venous thrombus within the cephalic vein as detailed above. ACT 112: Negative or not required by law. Electronically signed by: Justus Galdamez M.D. 02/21/2023 9:49 PM Chest X-Ray 03/02/23 12:31 SINGLE VIEW CHEST CLINICAL HISTORY: Dialysis catheter malfunction. FINDINGS: An AP, portable, upright chest radiograph is compared to study dated 02/26/2023 and correlated with chest CT dated 01/16/2023. The examination is degraded by portable technique and patient rotation. A right internal jugular central venous catheter is unchanged in position. The cardiomediastinal silhouette is top normal for projection noting atherosclerotic calcification of the thoracic aorta. Chronic interstitial thickening is previous. The lungs and pleural spaces are clear noting mild bibasilar scarring/atelectasis. No pneumothorax is seen. The skeletal structures are osteopenic. The bony thorax is grossly intact. IMPRESSION: No active disease in the chest. ACT 112: Negative or not required by law. Electronically signed by: Justus Galdamez M.D. 03/02/2023 2:45 PM Videofluoroscopic Swallow 03/03/23 10:00 VIDEO SWALLOW STUDY CLINICAL HISTORY: Aspiration. COMPARISON STUDY: No priors. FLUOROSCOPY TIME: 2.27 minutes. Ka,r: 10.5 mGy FINDINGS: Fluoroscopic guidance is provided to the department of speech pathology in performing a video swallow study. A dialysis catheter projects over the neck. The patient consumed barium impregnated pudding, cracker with paste, nectar-thick liquids, and thin barium while the swallowing mechanism was observed in real-time. There is aspiration with cough reflex seen with thin barium. Silent aspiration was seen with residuals on the nectar-thick liquid texture. No aspiration was seen with the pudding or cracker with paste textures. Silent aspiration was seen with thin barium wash at the end of the procedure. IMPRESSION: 1. Aspiration was seen with the thin barium and nectar-thick liquid textures. 2. See dedicated speech pathology report for detailed findings and recommendati ons. Dictated: 03/03/2023 12:45 PM Transcribed: 03/03/2023 12:54 PM Brian [id number] [email or web address] Electronically signed by: Justus Galdamez M.D. 03/03/2023 2:08 PM PG Care Time/CCT Total # of Minutes Spent Total Time Spent with Patient: Total time spent is greater than 50% in coordination of care (as documented) at patient's floor/unit and/or counseling patient: Coding Level of Care Code 02154 SUB INP/OBS CARE 3/50MIN Diagnoses H/O right hemicolectomy Z90.49 Colon cancer C18.9 Melena K92.1 Acute blood loss anemia D62
[2023-03-11] MEDS: PROMETHAZINE HCL 12.5 MG in SODIUM CHLORIDE 0.9% 50 ML IV PRN (12:27)
--- NOTE | 2023-03-11 15:04 | Consultation ---
Date of Consultation March 11, 2023 Assessment & Plan (1) Central venous catheter in place: Patient is scheduled for removal of PermCath tomorrow. I have discussed the risks options and benefits of the procedure with the patient. The patient understands the risks options and benefits and agrees to the procedure. History of Present Illness Reason for Consultation: Status post PermCath insertion Attending Physician: Modesto Warner MD History of Present Illness This is an 87-year-old female who required dialysis after acute kidney injury secondary to surgery for ischemic small bowel with anastomotic leak. She now has had recovery however her kidney function no longer requires a PermCath. Allergies Allergy/AdvReac Type Severity Reaction Status Date / Time adhesive tape AdvReac Mild SKIN Verified 02/23/23 22:26 IRRITATION (BANDAIDS) Home Medications Medication Instructions Recorded Confirmed Type donepezil 5 mg tablet (Aricept) 5 mg PO HS 10/19/18 02/06/23 History latanoprost 0.005 % eye drops 1 drp OPB HS 10/19/18 02/06/23 History quetiapine 25 mg tablet (Seroquel) 12.5 mg PO HS 10/19/18 02/06/23 History blood-glucose meter #1 ea 09/14/20 01/29/23 History acetaminophen 500 mg capsule 1,000 mg PO BID PRN Pain 11/08/21 02/06/23 History Wheeled Walker #1 ea 03/28/22 01/28/23 Rx ascorbic acid (vitamin C) 500 mg 500 mg PO QAM 05/29/22 02/06/23 History capsule vortioxetine 10 mg tablet 10 mg PO HS 05/29/22 02/06/23 History (Trintellix) omega-3 acid ethyl esters 1 gram 1 cap PO BID 08/08/22 02/06/23 History capsule BD Ultra-Fine Sheri Pen Needle 32 #100 ea 09/01/22 01/29/23 Rx gauge x 5/32" (pen needle, diabetic) ferrous sulfate 325 mg (65 mg 325 mg PO Q2D 10/03/22 02/06/23 History iron) tablet meclizine 25 mg tablet 25 mg PO TID PRN dizziness or 10/03/22 02/06/23 Rx vertigo #10 tabs oxybutynin chloride 10 mg 10 mg PO QAM #90 tabs 10/20/22 02/06/23 Rx tablet,extended release 24 hr cholecalciferol (vitamin D3) 50 50 mcg PO QAM 11/27/22 02/06/23 History mcg (2,000 unit) capsule calcium 600 mg capsule 600 mg PO QAM 01/06/23 02/06/23 History vit C 250 mg-vit E 90 mg-zinc 40 1 tab PO QPM 01/06/23 02/06/23 History mg-copper 1 [id number] capsule (PreserVision AREDS-2) rosuvastatin 10 mg tablet 10 mg PO QAM 01/29/23 02/06/23 History aspirin 81 mg tablet 81 mg PO DAILY 02/06/23 02/06/23 History clopidogrel 75 mg tablet (Plavix) 75 mg PO QAM 02/06/23 02/06/23 History darbepoetin bao in polysorbat 60 60 mcg subcut .q2wks 02/06/23 02/06/23 History mcg/mL in polysorbate injection (Aranesp) insulin glargine 100 unit/mL (3 18 unit (0.18 mL) subcut QPM #30 mL 02/13/23 Rx mL) subcutaneous pen (Lantus Solostar U-100 Insulin) Patient History Medical History Memory change Pt verbalized she has come trouble remembering things Colon cancer new dx Diabetes mellitus, type 2 IDDM TIA (transient ischemic attack) (01/2022) no residual effects>beginning of 2022>? reason for plavix Dementia Chronic low back pain Cervical spinal stenosis Lumbar facet joint syndrome Retinal vein occlusion Cervicalgia Lumbar spondylosis Anemia has been getting procrit injections every 2 weeks w/iron infusions and blood transfusion summer 2022 Urinary incontinence Osteoporosis Nontoxic multinodular goiter Mixed conductive and sensorineural hearing loss Hyperlipidemia Glaucoma Diabetic nephropathy Depression Chronic kidney disease, stage IV (severe) Surgical History S/P dialysis catheter insertion (02/26/23) Right Jugular Tunneled Perm Catheter Placement, Left Subclavian Central Venous Catheter Placement, Removal of Right Interal Jugular Hemodialysis Catheter(Bilateral) - Javier Mary DO H/O exploratory laparotomy (02/19/23) Exploratory Laparotomy, Resection of Ileocolonic anastomosis, partial omentectomy, small bowel resection, creation of end ileostomy(Not Applicable) - Parviz Keenan DO H/O right hemicolectomy (02/06/23) Open Right Hemicolectomy(Right) - Javier Mary DO History of esophagogastroduodenoscopy (EGD) Slow to wake up after anesthesia Hx of bladder repair surgery Hx of colonoscopy History of total abdominal hysterectomy SECONDARY TO PROLAPSED UTERUS History of repair of rotator cuff rt History of repair of rectocele History of cataract surgery rt/left Family History Brother Bone cancer Father , @AGE 64 Cardiac disorder Family history of deafness or hearing loss Hypertension Myocardial infarction, Onset Age: 64 Mother Family history of deafness or hearing loss Pancreatic cancer Aunt Breast cancer Denies family history of Family history of bleeding disorder Ovarian cancer Prostate cancer Adverse anesthesia outcome Colorectal cancer Social History Smoking Status: Never smoker Second Hand Exposure: Yes (in the past); Do You Dip or Chew Tobacco: No; Hx Alcohol Use: No Hx Substance Use: No Preferred Language: Kyrgyz Communication Ability: Effective Communication Ability Comment: STATES THAT SHE HAS LOSS OF HEARING Visual Impairment: No Limitations Hearing Ability: Hard of Hearing Full Stack Developer Required: No Beliefs That Will Affect Care: None marital status: marital status details: HAS FOUR CHILDREN Current Living Situation: Spouse Current Living Situation Comment: lives w/ spouse and grandson (age 25) current occupational status: 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[employer]; 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 How many Children do You have: 4 Feels Safe at Home: Yes Safety Concerns: Feels Safe At This Time Childhood Exposure to Second-Hand Smoke: Yes Diet: regular caffeine: No during the past year weight has: remained stable Dental Care, Regularly: Yes Physical Activity Frequency: Other Physical Activity Frequency Comment: LIMITED BY PHYSICAL CONDITION Seatbelt Use: always Sunscreen Use: No Assistive Devices: Stair Lift and Walker Review of Systems Review of Systems: All systems reviewed & are unremarkable except as noted in HPI & below Physical Exam Constitutional: + ill appearing Respiratory: normal respiratory effort, lungs clear to auscultation Cardiovascular: Rate/Rhythm: regular rate and regular rhythm Chest (Breasts): Additional Comments: Right internal jugular vein permcath in place Gastrointestinal (Abdomen): Inspection/Auscultation: abdomen not distended Percussion/Palpation: abdomen soft Neurologic: CN's II-XI intact bilaterally and moves all extremities Psychiatric: Orientation: alert and oriented x 3 Results & Data Vital Signs (Past 12 Hours) Vital Signs Temp Pulse Pulse Resp BP BP Pulse Ox 03/11/23 11:31 36.5 C 76 12 130/57 L 95 03/11/23 08:51 36.5 C 87 12 161/73 H 97 03/11/23 07:50 03/11/23 06:00 73 99 O2 Del Method 03/11/23 11:31 Room Air 03/11/23 08:51 Room Air 03/11/23 07:50 Room Air 03/11/23 06:00 Room Air
--- NOTE | 2023-03-11 15:05 | Pharmacy Report ---
Pharmacy Glycemic Short Note 2 - Date of Service March 11, 2023 - Glycemic Short BSG Results (Last 24 hours): 03/10/23 03/10/23 03/11/23 16:57 20:05 05:54 Glucose 286 H POC Glucose 199 H 185 H 03/11/23 03/11/23 03/11/23 07:17 09:31 11:33 Glucose POC Glucose 318 H* 301 H* 213 H OUTPATIENT ANTIDIABETIC REGIMEN: * Lantus 20 units SC PM * HbA1c = 8% (02/02/23) ASSESSMENT: 03/11: * BSGs have trended upward with addition of diet, will restart carb ratio of 8, adjust to ACHS with overnight checks as TPN will still be running 24 hours at this time * Continue to monitor 03/09: * Patient received 29 units of insulin yesterday (12 basal + 17 bolus) with an additional 15 units in the TPN bag. BSGs 109-650-06-181 mg/dL * She was made NPO overnight with concern for bleed. TPN continued. Adjusted novolog to q4 hours d/t NPO status * Increased insulin amount in TPN today. Monitor. 03/08: * Keren received 28 units of insulin yesterday (12 basal + 6 bolus + 10 units in TPN bag). BSGs were: [phone] mg/dL. * BSG this AM is 229 mg/dL. Remains on TPN at goal. PO intake was a little better yesterday. This may account for high BSG this AM. * Will increase amount of insulin in the TPN bag today. No change to Lantus. Will add a carb ratio to Novolog to cover carbs patient may now be eating with diet ordered. 03/06: * BSGs yesterday were [phone] mg/dL. Patient received 12 units of Lantus + 1 unit of Novolog (Given at HS). There are 10 units of IV insulin in her TPN. Dextrose remains stable at 185 grams/day. * Fasting today was 108 mg/dL. This is most likely due to TPN being paused overnight. This raises concern that hyperglycemia from TPN is being covered with basal insulin. * Hold Lantus this AM and switch to BID dosing for more control. It may be reasonable to increase insulin in TPN. * Continue Novolog. 03/05: * BSGs yesterday were [phone] mg/dL. Patient received 12 units of Lantus and 4 units of bolus. There are 10 units of insulin in the TPN. * Continue TPN + 10 units in bag. * BSGs today are 124-131 mg/dL so continue regimen. 03/02: * BSGs [phone]/dL the last 24h. Received 12units of SQ basal and 10 units IV insulin in TPN, 8 units of bolus. * Diet advanced to full liquids. * Given stable BSGs over several days, TPN macros were advanced to goal starting this evening. Will trend BSGs. No additional insulin dose adjustments for now. 03/01: * Keren received 27 units of insulin yesterday, 10 basal + 10 in TPN bag + 7 bolus. BSGs were: [phone] mg/dL. * Fasting up slightly to 176 mg/dL today. Will increase basal slightly today. * No change to bolus or amount of insulin in TPN bag (Dextrose = 168 g/day). Stressors stable. 02/27: * BSGs downtrending. Lantus reduced to 15 units of 02/26, Fasting 93 mg/dL- received 15 units this morning. Will reduce to 10 units tomorrow (reassess). * Dextrose content increased in TPN today but continued same 10 units in bag. Patient is to received HD today. * Continue to monitor, loosened correction factor. 02/25: * BSGs above goal the last 24h: [phone]/dL. Received 25 units of basal and 16 units of bolus insulin yesterday. * HD cath clotted - unable to dialyze today. TPN continues to run. NPO. * Lantus increased to 20 units given elevated fasting BSGs. Continued 10 units of insulin in TPN for now (unclear of future plan for PN given access issue). Novolog correctional tightened. TPN dextrose taken to goal central access (118gm CHO). 02/24: * Patient's BSGs yesterday were [phone] mg/dL. Today's AM BSGs were 240-212-146 mg/dL. * Patient did get 2 hrs of HD yesterday and planned for 3hr HD today. * Increased SC Lantus dose given persistently BSGs. However after BSG normalized at lunchtime and as patient receiving another round of HD today, will reduce the amount of insulin the TPN bag from 20 to 10. If BSGs trend up again can consider tightening NovoLog CF. * Will keep TPN macros the same today until BSGs somewhat consistently controlled. 02/23: * Patient's blood sugars elevated again today, 0 units of insulin in PPN bag with 50 gm of dextrose * Converting to central parenteral nutrition- dextrose will increase- will add 20 units of insulin to the bag (patient was used ~19 units of correctional since resuming TPN). Adjusted checks back to q4 as this helped previously. * Resumed 10 units of lantus qAM (held 02/22 d/t NPO status and ppn held until 1600). PLAN FOR INPATIENT GLYCEMIC CONTROL: * Basal insulin * Lantus 6 units SC BID * Bolus insulin * NovoLog per scale ACHS or Q4hrs while NPO * Goal Range: Low 110 mg/dL - High 140 mg/dL * Correction Factor: 20 mg/dL/unit * Carb Ratio: 8 g CHO/unit * TPN: 20 units regular insulin
[2023-03-11 15:10] LABS: Hematocrit (blood only) 19.3 % (37.0-47.0); Hemoglobin 6.4 g/dl (12.0-16.0); Mean Corpuscular Hemoglobin 28.8 pg (25.0-34.0); Mean Corpuscular Hgb Conc 33.2 g/dL (32.0-36.0); Mean Corpuscular Volume 86.9 fL (80.0-100.0); Mean Platelet Volume 11.6 fL (9.4-12.4); Nucleated RBC # (auto) 0.02 K/uL (0.00-0.12); Nucleated RBC % (auto) 0.1 %; Platelet Count 175 K/uL (130-400); RDW Coefficient of Variation 15.9 % (11.5-14.5); RDW Standard Deviation 49.6 fL (36.4-46.3); Red Blood Count 2.22 M/uL (4.20-5.40); White Blood Count 17.09 K/ul (4.8-10.8)
[2023-03-11] MEDS ORDERED: SODIUM CHLORIDE 0.9% 250 ML IV PRN (15:21)
[2023-03-11] MEDS ORDERED: CLINOLIPID 20% IV FAT EMULSION 250 ML IV SCH ×2 (16:00)
[2023-03-11] MEDS ORDERED: [UNRECOGNIZED DRUG - OTHER] IV SCH (16:00)
[2023-03-11] MEDS ORDERED: CENTRAL TPN IV SCH (16:00)
--- NOTE | 2023-03-11 18:29 | XRay Report ---
SINGLE VIEW CHEST CLINICAL HISTORY: Hypoxia. FINDINGS: An AP, portable, upright chest radiograph is compared to study dated 03/02/2023 and correla skip with chest CT dated 01/16/2023. The examination is degraded by portable technique and patient rota tion. A right internal jugular central venous catheter and a left subclavian central venous catheter are unchanged in position. The cardiomediastinal silhouette is top normal for projection noting ather osclerotic calcification of the thoracic aorta. Chronic interstitial thickening is similar to previou s. The lungs and pleural spaces are clear noting mild bibasilar scarring/atelectasis. No pneumothorax is seen. The skeletal structures are osteopenic. The bony thorax is grossly intact. IMPRESSION: No active disease in the chest. ACT 112: Negative or not required by law. Electronically signed by: Justus Galdamez M.D. 03/11/2023 6:27 PM
--- NOTE | 2023-03-11 20:06 | CT Scan Report ---
Exam(s): CT ABDOMEN + PELVIS Without Contrast EXAM: CT Abdomen and Pelvis Without Intravenous Contrast CLINICAL HISTORY: Reason for exam: Gi bleed. TECHNIQUE: Axial computed tomography images of the abdomen and pelvis without intravenous contrast. CTDI is 30.89 mGy and DLP is 1445.47 mGy-cm. Automated exposure control was utilized for the study. A dose lowering technique was utilized adhering to the principles of ALARA. COMPARISON: No relevant prior studies available. FINDINGS: Lung bases: Unremarkable. No mass. No consolidation. ABDOMEN: Liver: Unremarkable. Gallbladder and bile ducts: Mild gallbladder sludge. Fluid collection in the RIGHT upper quadrant adjacent to the gallbladder fossa, measures approximately 4.3 x 5.6 cm. No calcified stones. No ductal dilation. Pancreas: Unremarkable. No ductal dilation. Spleen: Unremarkable. No splenomegaly. Adrenals: Unremarkable. No mass. Kidneys and ureters: Unremarkable. No obstructing stones. No hydronephrosis. Stomach and bowel: Midline laparotomy. Partial colectomy. RIGHT lower quadrant colostomy. Small peristomal hernia. No small bowel obstruction. PELVIS: Appendix: See above. Bladder: Vera catheter terminates in the urinary bladder. No stones. Reproductive: Unremarkable as visualized. ABDOMEN and PELVIS: Intraperitoneal space: Unremarkable. No significant fluid collection. No free intraperitoneal air. Bones/joints: Degenerative changes of the spine. No acute fracture. No dislocation. Soft tissues: See above. Vasculature: Atherosclerotic changes of the aorta. No abdominal aortic aneurysm. Lymph nodes: Unremarkable. No enlarged lymph nodes. IMPRESSION: 1. No free intraperitoneal air. 2. Midline laparotomy. Partial colectomy. RIGHT lower quadrant colostomy. Small peristomal hernia. No small bowel obstruction. 3. Mild gallbladder sludge. 4. Fluid collection in the RIGHT upper quadrant adjacent to the gallbladder fossa, measures approximately 4.3 x 5.6 cm. This may be postoperative in etiology. Electronically signed by: Ranulfo Varela MD 03/11/23 20:05 PM
[2023-03-11] MEDS: STOP CLINOLIPID SCH (22:20)
[2023-03-12] MEDS: INSULIN ASPART PER UNIT CHARGE SC SCH ×7 (00:13→23:32)
[2023-03-12 04:31] LABS: Hematocrit (blood only) 28.9 % (37.0-47.0)
--- NOTE | 2023-03-12 06:34 | Hospitalist Progress Note ---
Date of Service March 12, 2023 Assessment & Plan (1) Elevated blood pressure reading: Plan: Pt is an 87 y/o female with PMH of DM, colon cancer, TIA (2021), dementia, chronic low back pain, CKD, and HLD presenting to the hospital for right hemicolectomy. Initial surgery 02/06. Returned to the OR 02/19 for ischemic bowel resection and ileostomy creation. #Anemia #Coagulability #Bleeding #Heme Positive Stool -Has required at total of 15 units pRBC during this hospital stay, last 3 units 03/11 - EGD 03/11 without source of bleeding, tagged RBC scan with tracer in the mid abdomen/upper pelvis concern for small bowel bleeding - Hbg= 9.3 this morning, 8.1 at 1400, plan for q4 H/H, transfuse below 8 #Severe Sepsis with VRE and ESBL #Leukocytosis - 02/06 right hemicolectomy for invasive adenocarcinoma -Patient with clinical deterioration and severe sepsis starting 02/16 secondary to bowel leak. -Patient now s/p ischemic bowel resection with ileostomy creation 02/19. Peritoneal fluid growing VRE E. faecium and ESBL. - Open wound noted on abdomen; wound vac in place - completed 14 days of coverage for cultured bacteria #ARCELIA on CKD IV #ATN -Baseline Cr ~ 1.6-1.7. -overall improving; creatine continues to trend down - nephrology consulted and has been following - required HD; last session 03/02 - good urine output #Elevated BP -Patient with elevated blood pressure most likely secondary to recent surgery and pain. -Was initially started on amlodipine 5 mg during this admission. -We will hold for now due to risk of becoming hypotensive, more lethargic --> want to maintain perfusion; spikes in BP have been asymptomatic #A fib with RVR -Patient without a history of atrial fibrillation, had a bout on 02/20. -Heparin SQ BID for VTE ppx currently held with concern for GI bleed #Parental Nutrition -Pharmacy/Dietary on board. TPN through central access. -Ostomy functioning. 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 -Completed 10 day course of doxycycline #Dementia -Continue Seroquel 12.5 mg and donepezil 5 mg QHS #Insulin Dependent Diabetes Mellitus -SSI while hospitalized. Resume home dosing on discharge #Depression -hold vortioxetine; some research this could make hypocoagulable #OAB -oxybutynin currently being held; if continues to tolerate PO intact could resume #HLD -Statin held while on daptomycin #History of TIA - clopidogrel currently being held (2) Chronic kidney disease, stage IV (severe): (3) Anastomotic leak of intestine: (4) Atrial fibrillation with rapid ventricular response: (5) On parenteral nutrition: Admission and Anticipated Discharge Date Admission Date: February 06, 2023 Supervising Physician Co-Signing Physician Notes Also saw the patient confirmed kinsey portions of the clinical history and physical examination. I also personally discussed the case with the consulting surgeon. I agree with impression and plan as noted in resident documentation above. Tagged RBC scan today shows bleeding in the mid abdominal area, most likely from a small bowel etiology. She required 3 days of packed RBCs yesterday, and serial hemoglobins consistent with continued bleed. CT scan of the abdomen and pelvis last night also showed a fluid collection in the right upper quadrant. After discussion with consultants, recommendation was made to transfer to a tertiary care facility for possible IR intervention for the small bowel bleed. Upon exam, she was nauseous with a small bit of emesis post the tagged RBC scan. Following this, she seemed more comfortable. She was tachycardic (140s) during the bout of nausea, the rest of the day has remained hemodynamically stable. Impression and plan Anemia, blood loss in the setting of melena/GIB Ongoing bleed, likely small bowel etiology Transfer to tertiary care facility with IR capabilities; transfer pending transport and bed availability Continue serial hemoglobin; transfuse as necessary ARCELIA on CKDIV w/ ATN nephro consult appreciated. Baseline Cr 1.6. Continue to trend Severe sepsis with VRE, ESBL completed course of abx therapy AF h/o RVR Heparin remains on hold given ongoing bleeding - heparin held for GIB/procedure Additional details in resident documentation above Subjective Pt seen at bedside. Daughter and were present. Plan to try and transfer to [place] for IR. Review of Systems Review of Systems: As per above Physical Exam Physical Exam: Constitutional: well-appearing, no acute distress HEENT: NCAT, no conjunctival injection CV: regular rhythm, no murmur appreciated, extremities well-perfused Resp: CTABL, no wheezes/rales/rhonchi appreciated, no increased work of breathing GI: ostomy in place with dark output, wound vac in place MSK: no gross deformities appreciated Skin: warm, dry, no rash appreciated Neuro: alert, oriented, no focal neurologic deficit appreciated Results & Data Results & Data Vital Signs (Past 12 Hours) Vital Signs Temp Pulse Pulse Pulse Pulse Resp BP 03/12/23 06:00 84 03/12/23 02:35 36.8 C 84 14 156/72 H 03/12/23 02:00 03/12/23 01:57 36.8 C 85 13 146/65 H 03/12/23 00:57 36.9 C 88 14 158/65 H 03/12/23 00:27 37.1 C 86 19 143/47 H 03/12/23 00:12 37.1 C 85 17 126/51 L 03/11/23 23:55 37.0 C 86 13 134/55 L 03/11/23 23:30 37.0 C 85 15 148/62 H 03/11/23 22:58 36.7 C 85 20 03/11/23 22:39 36.5 C 84 16 163/71 H 03/11/23 21:55 86 03/11/23 21:39 36.3 C L 91 H 26 H 151/67 H 03/11/23 21:09 36.8 C 85 19 158/70 H 03/11/23 20:54 36.8 C 85 15 153/71 H 03/11/23 20:34 36.5 C 98 H 20 136/77 03/11/23 20:15 36.4 C L 86 14 153/65 H 03/11/23 19:27 36.3 C L 83 16 154/79 H 03/11/23 19:04 36.6 C 63 18 BP BP Pulse Ox O2 Del Method 03/12/23 06:00 97 Room Air 03/12/23 02:35 100 03/12/23 02:00 100 Room Air 03/12/23 01:57 100 03/12/23 00:57 100 03/12/23 00:27 97 03/12/23 00:12 99 03/11/23 23:55 100 03/11/23 23:30 100 03/11/23 22:58 170/71 H 100 Nasal Cannula 03/11/23 22:39 100 03/11/23 21:55 03/11/23 21:39 100 03/11/23 21:09 100 03/11/23 20:54 100 03/11/23 20:34 100 03/11/23 20:15 100 03/11/23 19:27 03/11/23 19:04 117/67 96 Room Air Resident Activity Tracking Resident Involvement: Resident Care Provided Care Provided: Adult Hospital Medicine
[2023-03-12 06:40] LABS: Hematocrit (blood only) 26.3 % (37.0-47.0); Hemoglobin 9.3 g/dl (12.0-16.0); Mean Corpuscular Hemoglobin 30.2 pg (25.0-34.0); Mean Corpuscular Hgb Conc 35.4 g/dL (32.0-36.0); Mean Corpuscular Volume 85.4 fL (80.0-100.0); Mean Platelet Volume 12.2 fL (9.4-12.4); Nucleated RBC # (auto) 0.07 K/uL (0.00-0.12); Nucleated RBC % (auto) 0.4 %; Platelet Count 136 K/uL (130-400); RDW Coefficient of Variation 15.6 % (11.5-14.5); RDW Standard Deviation 47.6 fL (36.4-46.3); Red Blood Count 3.08 M/uL (4.20-5.40); White Blood Count 16.69 K/ul (4.8-10.8)
[2023-03-12 07:23] LABS: BUN Creatinine Ratio 71.6 (10-20); Bilirubin,Total 0.3 mg/dl (0.2-1.0); Calcium 8.1 mg/dl (8.6-10.3); Creatinine Clr Calc Pharmacy 18.2 ml/min; Est GFR (African American) 23.1 ml/min; Est GFR (Non-African American) 19.9 ml/min; Magnesium 1.8 mg/dl (1.7-2.4); Phosphorus 4.3 mg/dl (2.5-4.9); Potassium 4.7 mmol/L (3.5-5.1)
--- NOTE | 2023-03-12 07:51 | Nephrology Progress Note ---
Date of Service March 12, 2023 Assessment & Plan (1) Acute kidney injury: Plan: * Non-oliguric. UO 2225 cc last 24 hours. Creatinine unchanged at 2.1 this am. Patient is oxygenating well on RA. She remains within the recovery phase of ARCELIA and is nearing her baseline Cr of 1.6 * Hold diuretic. Patient is diuresing well on her own * Vascular Surgery tp remove R IJ TCC today * Document strict I/O's and repeat metabolic profile tomorrow AM. (2) Chronic kidney disease, stage III (moderate): Plan: * CKD stage G3/A2. Baseline Cr 1.3-1.6. CKD attributed to hypertension and DKD. (3) Anemia: Plan: * Recommend transfusion to maintain Hgb > 8.0 * EGD 03/10/23 revealed nonbleeding gastric ulcer * Await results of bleeding scan (4) Anastomotic leak of intestine: Plan: * Adenocarcinoma of the colon s/p R open hemicolectomy 02/06/23. On post-op day #10 developed a signs of sepsis. Exploratory laparotomy revealed an anastomotic leak/perforation and had resection of the anastomosis w/ creation of an end ileostomy. * Remains on parental nutrition. Admission and Anticipated Discharge Date Admission Date: February 06, 2023 Subjective Mrs. Hull was evaluated in her hospital room this morning. She denies abdominal discomfort, N/V, hematemesis. She is scheduled for a bleeding scan due to progressive drop in H&H following transfusion Review of Systems Constitutional: no fever Eyes: no problem reported Ear, Nose, Mouth, Throat: no problem reported Respiratory: no cough and no dyspnea Cardiovascular: no chest pain Gastrointestinal: no nausea and no vomiting Physical Exam Constitutional: + frail appearing Eyes: PERRL, conjunctivae normal, anicteric sclerae ENMT: external ear and nose normal, oropharynx normal Neck: trachea midline, no thyromegaly Respiratory: normal respiratory effort, lungs clear to auscultation Cardiovascular: RRR, no murmur, no edema Rate/Rhythm: regular rate and regular rhythm Extremities: + edema (2+ dependent edema) Gastrointestinal (Abdomen): Inspection/Auscultation: + hypoactive bowel sounds Skin: no rashes, warm and dry Neurologic: Speech / Cognition: normal speech and normal cognition Results & Data Vital Signs (Past 12 Hours) Vital Signs Temp Pulse Pulse Pulse Resp BP BP 11/30/23 06:00 84 03/12/23 02:35 36.8 C 84 14 156/72 H 03/12/23 02:00 03/12/23 01:57 36.8 C 85 13 146/65 H 03/12/23 00:57 36.9 C 88 14 158/65 H 03/12/23 00:27 37.1 C 86 19 143/47 H 03/12/23 00:12 37.1 C 85 17 126/51 L 03/11/23 23:55 37.0 C 86 13 134/55 L 03/11/23 23:30 37.0 C 85 15 148/62 H 03/11/23 22:58 36.7 C 85 20 170/71 H 03/11/23 22:39 36.5 C 84 16 163/71 H 03/11/23 21:55 86 03/11/23 21:39 36.3 C L 91 H 26 H 151/67 H 03/11/23 21:09 36.8 C 85 19 158/70 H 03/11/23 20:54 36.8 C 85 15 153/71 H 03/11/23 20:34 36.5 C 98 H 20 136/77 03/11/23 20:15 36.4 C L 86 14 153/65 H Pulse Ox O2 Del Method 03/12/23 06:00 97 Room Air 03/12/23 02:35 100 03/12/23 02:00 100 Room Air 03/12/23 01:57 100 03/12/23 00:57 100 03/12/23 00:27 97 03/12/23 00:12 99 03/11/23 23:55 100 03/11/23 23:30 100 03/11/23 22:58 100 Nasal Cannula 03/11/23 22:39 100 03/11/23 21:55 03/11/23 21:39 100 03/11/23 21:09 100 03/11/23 20:54 100 03/11/23 20:34 100 03/11/23 20:15 100 Laboratory Results Laboratory Results - last 24 hr 02/26/23 03/11/23 03/11/23 07:20 09:31 11:33 WBC RBC Hgb Hct MCV MCH MCHC RDW Std Deviation RDW Coeff of Mari Plt Count MPV Absolute Nucleated RBC Nucleated RBC % (auto) Sodium Potassium Chloride Carbon Dioxide Anion Gap BUN Creatinine Est Cr Clr Drug Dosing Est GFR ( Amer) Est GFR (Non-Af Amer) BUN/Creatinine Ratio Glucose POC Glucose 301 H* 213 H Calcium Phosphorus Magnesium Total Bilirubin AST ALT Alkaline Phosphatase Total Protein Albumin Globulin Albumin/Globulin Ratio Blood Type Antibody Screen Crossmatch See Detail 03/11/23 03/11/23 03/11/23 14:19 16:01 16:18 WBC 17.09 H RBC 2.22 L Hgb 6.4 L* Hct 19.3 L* MCV 86.9 MCH 28.8 MCHC 33.2 RDW Std Deviation 49.6 H RDW Coeff of Mari 15.9 H Plt Count 175 MPV 11.6 Absolute Nucleated RBC 0.02 Nucleated RBC % (auto) 0.1 Sodium Potassium Chloride Carbon Dioxide Anion Gap BUN Creatinine Est Cr Clr Drug Dosing Est GFR ( Amer) Est GFR (Non-Af Amer) BUN/Creatinine Ratio Glucose POC Glucose 205 H Calcium Phosphorus Magnesium Total Bilirubin AST ALT Alkaline Phosphatase Total Protein Albumin Globulin Albumin/Globulin Ratio Blood Type O Positive Antibody Screen NEGATIVE Crossmatch See Detail 03/11/23 03/12/23 03/12/23 20:02 00:01 03:42 WBC RBC Hgb 10.0 L D Hct 28.9 L MCV MCH MCHC RDW Std Deviation RDW Coeff of Mari Plt Count MPV Absolute Nucleated RBC Nucleated RBC % (auto) Sodium Potassium Chloride Carbon Dioxide Anion Gap BUN Creatinine Est Cr Clr Drug Dosing Est GFR ( Amer) Est GFR (Non-Af Amer) BUN/Creatinine Ratio Glucose POC Glucose 208 H 215 H Calcium Phosphorus Magnesium Total Bilirubin AST ALT Alkaline Phosphatase Total Protein Albumin Globulin Albumin/Globulin Ratio Blood Type Antibody Screen Crossmatch 03/12/23 03/12/23 03/12/23 04:04 06:15 07:08 WBC 16.69 H RBC 3.08 L Hgb 9.3 L Hct 26.3 L MCV 85.4 MCH 30.2 MCHC 35.4 RDW Std Deviation 47.6 H RDW Coeff of Mari 15.6 H Plt Count 136 MPV 12.2 Absolute Nucleated RBC 0.07 Nucleated RBC % (auto) 0.4 Sodium 137 Potassium 4.7 Chloride 108 H Carbon Dioxide 22 Anion Gap 7 BUN 154 H Creatinine 2.15 H Est Cr Clr Drug Dosing 18.2 Est GFR ( Amer) 23.1 Est GFR (Non-Af Amer) 19.9 BUN/Creatinine Ratio 71.6 H Glucose 186 H POC Glucose 198 H 178 H Calcium 8.1 L Phosphorus 4.3 Magnesium 1.8 Total Bilirubin 0.3 AST 25 ALT 26 Alkaline Phosphatase 195 H Total Protein 4.0 L Albumin 2.0 L Globulin 2.0 L Albumin/Globulin Ratio 1.0 Blood Type Antibody Screen Crossmatch PG Care Time/CCT Total # of Minutes Spent Total Time Spent with Patient: Total time spent is greater than 50% in coordination of care (as documented) at patient's floor/unit and/or counseling patient: Coding Level of Care Code 48554 SUB INP/OBS CARE 3/50MIN Diagnoses Acute kidney injury N17.9 Chronic kidney disease, stage III (moderate) N18.30 Anemia D64.9 Anemia type: unspecified type Anastomotic leak of intestine K91.89 (3) Anemia Anemia type: unspecified type Qualified Code(s): D64.9 - Anemia, unspecified
--- NOTE | 2023-03-12 10:13 | Nuclear Medicine Report ---
NUCLEAR GI BLEEDING SCAN CLINICAL HISTORY: GI bleeding. Drop in hematocrit. COMPARISON STUDY: Abdominal CT dated 03/11/2023. TECHNIQUE: Following the IV administration of 25.0 mCi of technetium 99m UltraTag labeled red blood c ells, nuclear bleeding scan was performed. Anterior flow images were obtained every 2 seconds for a t otal 58 seconds. Anterior static images were obtained every 5 minutes for a total of 60 minutes. FINDINGS: There is expected accumulation of tracer within the abdominal aorta and iliac vessels. Expected activ ity is noted in the liver and spleen. There is abnormal tracer localized in the mid abdomen/upper pelvis, corresponding to active GI bleedi ng. This is likely located within loops of small bowel. IMPRESSION: There is scintigraphic evidence of active GI bleeding within the mid abdomen/upper pelvis . This is likely located within loops of small bowel. ACT 112: Negative or not required by law. Electronically signed by: Justus Galdamez M.D. 03/12/2023 10:11 AM
[2023-03-12] MEDS: LANTUS PER UNIT CHARGE SC SCH ×2 (10:27→20:37)
[2023-03-12] MEDS ORDERED: ACETAMINOPHEN 1,000 MG/100 ML VIAL IV PRN (10:34)
[2023-03-12] MEDS: PROMETHAZINE HCL 12.5 MG in SODIUM CHLORIDE 0.9% 50 ML IV PRN (11:06)
[2023-03-12] MEDS: PANTOprazole 40 MG in SYRINGE 0 ML IV SCH ×2 (11:13→20:39)
[2023-03-12] MEDS ORDERED: LIDOCAINE 1% LOCAL 20 ML VIAL ONE (13:37)
--- NOTE | 2023-03-12 14:05 | History & Physical Bridge Note ---
Date of Service March 12, 2023 History & Physical Bridge Note Patient for removal of permcath today. I have discussed the risks options and benefits of the procedure with the patient. The patient understands the risks options and benefits and agrees to the procedure. I have examined the patient, reviewed the History & Physical and in the interval since the performance of the History & Physical I have noted the following changes of clinical significance: no changes noted
--- NOTE | 2023-03-12 14:35 | Operative Report ---
Post Operative Report Pre & Post Diagnosis Operation Date: 03/12/23 14:20 Pre-Op Diagnosis: Status Post Perm Cath Insertion Post-Op Diagnosis: Status Post Perm Cath Insertion I identified the patient and participated in the time-out.: Yes Procedure Operation Date: 03/12/23 14:20 Actual Procedures p Removal of Perm Catheter(Right) - Samir Triana MD Surgeon Samir Triana MD Magnet Valve Assembler none Estimated Blood Loss 0 Findings Consistent with Post-Op Diagnosis Specimens none Anesthesia Type Local Complications none Disposition Accompanied Patient To Recovery: No Disposition: Recovery Room Indications This is an 87-year-old female who has a PermCath in place. She no longer needs dialysis. Removal was recommended. Risk option benefits were discussed with her daughter who signed the consent gave permission for her PermCath removal. Description of Procedure The patient was taken to the angio suite and placed in the supine position. The patient was identified and a timeout performed. The right side of the neck, chest wall and catheter were prepped and draped in a sterile manner. Local anesthesia was then accomplished. Using sharp and blunt dissection, the cuff of the permcath was freed up from the surrounding fibrous tissue. The permcath and cuff were completely removed. Pressure was then applied and adequate hemostasis was obtained. A sterile dressing was then applied. The patient left the operation room in satisfactory condition and tolerated the procedure well. All needle and sponge counts were correct at the end of the procedure. I attest to the content of the Intraoperative Record and any orders documented therein. Any exceptions are noted below.
[2023-03-12 15:07] LABS: Hematocrit (blood only) 23.6 % (37.0-47.0); Hemoglobin 8.1 g/dl (12.0-16.0)
[2023-03-12] MEDS ORDERED: [UNRECOGNIZED DRUG - OTHER] IV SCH (16:00)
[2023-03-12] MEDS ORDERED: CENTRAL TPN IV SCH (16:00)
--- NOTE | 2023-03-12 16:03 | Surgery Progress Note ---
Date of Service March 12, 2023 Assessment & Plan (1) Acute blood loss anemia: Plan: Patient lethargic Ostomy functioning with melanous colored stool Patient has required multiple units of PRBC to maintain a stable h/h over the course of hospital stay. Upper GI 03/10/23 found no active bleed today 03/12/23 patient underwent a perm cath removal WBC 16.6 H/H 8.1/23.6 Wound Vac to midline post operative surgical site CT scan of Abd and pelvis from 03/11/23 IMPRESSION: 1. No free intraperitoneal air. 2. Midline laparotomy. Partial colectomy. RIGHT lower quadrant colostomy. Small peristomal hernia. No small bowel obstruction. 3. Mild gallbladder sludge. 4. Fluid collection in the RIGHT upper quadrant adjacent to the gallbladder fossa, measures approximately 4.3 x 5.6 cm. This may be postoperative in etiology. NUCLEAR GI BLEEDING SCAN FINDINGS: There is expected accumulation of tracer within the abdominal aorta and iliac vessels. Expected activity is noted in the liver and spleen. There is abnormal tracer localized in the mid abdomen/upper pelvis, corresponding to active GI bleeding. This is likely located within loops of small bowel. IMPRESSION: There is scintigraphic evidence of active GI bleeding within the mid abdomen/upper pelvis. This is likely located within loops of small bowel. Dr. Mary spoke with primary service and Fluid collection is not of concern at this time unless she becomes febrile and toxic, however we are recommending transfer to tertiary care center for intervention for the active GI bleeding, Primary service has been notified. (2) Melena: (3) H/O right hemicolectomy: Admission and Anticipated Discharge Date Admission Date: February 06, 2023 Subjective Patient resting in bed at this time, arousable and opens eyes, but is lethargic and does not respond to questions Review of Systems Review of Systems: unattainable at this time Physical Exam Constitutional: + ill appearing and + edematous (bilater al upper and lower extremities ) Respiratory: no respiratory distress Cardiovascular: Rate/Rhythm: regular rate Gastrointestinal (Abdomen): Inspection/Auscultation: + abdominal surgical drain present (wound vac over midline post operative surgical incision) ostomy functioning with melanous colored stool Genitourinary: crandall catheter Results & Data Vital Signs (Past 12 Hours) Vital Signs Temp Pulse Pulse Pulse Resp BP BP 03/12/23 14:32 76 18 142/59 H 03/12/23 14:31 75 18 133/61 03/12/23 14:26 75 18 119/64 03/12/23 14:17 81 18 136/63 03/12/23 13:33 97.2 F L 76 18 120/55 L 03/12/23 12:40 97.7 F 74 14 144/58 H 03/12/23 06:00 84 Pulse Ox O2 Del Method 03/12/23 14:32 93 Room Air 03/12/23 14:31 93 Room Air 03/12/23 14:26 93 Room Air 03/12/23 14:17 92 Room Air 03/12/23 13:33 92 Room Air 03/12/23 12:40 98 Room Air 03/12/23 06:00 97 Room Air Diagnostic Findings [place], [place] [phone] Nuclear Medicine Report Patient: MIESHA BERRY Admit Date: 02/06/23 MR#: [id number] Address1: [address] [place] [address] Acct ID:[id number] Address2: [place] [address] Date: 1935 [facility] Zip: [place] [address] Age: 87 Location: 2E Sex: F Room/Bed: [facility] Att Phy: Modesto Warner MD Diagnosis: POST OPERATIVE RIGHT HEMICOLECTOMY Nani Phy: Sophie Murdock DO Service Date: 03/12/23 Fam Phy: Interpreting Phy: Justus Galdamez MDAdmit Phy: Javier Mary DO Ordering Phy: Kisha Gr DO cc: ~ NUCLEAR GI BLEEDING SCAN CLINICAL HISTORY: GI bleeding. Drop in hematocrit. COMPARISON STUDY: Abdominal CT dated 03/11/2023. TECHNIQUE: Following the IV administration of 25.0 mCi of technetium 99m UltraTag labeled red blood cells, nuclear bleeding scan was performed. Anterior flow images were obtained every 2 seconds for a total 58 seconds. Anterior static images were obtained every 5 minutes for a total of 60 minutes. FINDINGS: There is expected accumulation of tracer within the abdominal aorta and iliac vessels. Expected activity is noted in the liver and spleen. There is abnormal tracer localized in the mid abdomen/upper pelvis, corresponding to active GI bleeding. This is likely located within loops of small bowel. IMPRESSION: There is scintigraphic evidence of active GI bleeding within the mid abdomen/upper pelvis. This is likely located within loops of small bowel. ACT 112: Negative or not required by law. Electronically signed by: Justus Galdamez M.D. 03/12/2023 10:11 AM Dictated: 03/12/23 1009 Transcribed: 03/12/23 1009 [place], [place] [phone] CT Scan Report Patient: MIESHA BERRY Admit Date: 02/06/23 MR#: [id number] Address1: [address] Acct ID:[id number] Address2: [address] Date: 1935 [facility] Zip: [place] [address] Age: 87 Location: 2E Sex: F Room/Bed: [facility] Att Phy: Modesto Warner MD Diagnosis: POST OPERATIVE RIGHT HEMICOLECTOMY Nani Phy: Sophie Murdock DO Service Date: 03/11/23 Fam Phy: Interpreting Phy: Ranulfo Varela MDAdmit Phy: Javier Mary DO Ordering Phy: Shaun Chavis DO cc: ~ Exam(s): CT ABDOMEN + PELVIS Without Contrast EXAM: CT Abdomen and Pelvis Without Intravenous Contrast CLINICAL HISTORY: Reason for exam: Gi bleed. TECHNIQUE: Axial computed tomography images of the abdomen and pelvis without intravenous contrast. CTDI is 30.89 mGy and DLP is 1445.47 mGy-cm. Automated exposure control was utilized for the study. A dose lowering technique was utilized adhering to the principles of ALARA. COMPARISON: No relevant prior studies available. FINDINGS: Lung bases: Unremarkable. No mass. No consolidation. ABDOMEN: Liver: Unremarkable. Gallbladder and bile ducts: Mild gallbladder sludge. Fluid collection in the RIGHT upper quadrant adjacent to the gallbladder fossa, measures approximately 4.3 x 5.6 cm. No calcified stones. No ductal dilation. Pancreas: Unremarkable. No ductal dilation. Spleen: Unremarkable. No splenomegaly. Adrenals: Unremarkable. No mass. Kidneys and ureters: Unremarkable. No obstructing stones. No hydronephrosis. Stomach and bowel: Midline laparotomy. Partial colectomy. RIGHT lower quadrant colostomy. Small peristomal hernia. No small bowel obstruction. PELVIS: Appendix: See above. Bladder: Crandall catheter terminates in the urinary bladder. No stones. Reproductive: Unremarkable as visualized. ABDOMEN and PELVIS: Intraperitoneal space: Unremarkable. No significant fluid collection. No free intraperitoneal air. Bones/joints: Degenerative changes of the spine. No acute fracture. No dislocation. Soft tissues: See above. Vasculature: Atherosclerotic changes of the aorta. No abdominal aortic aneurysm. Lymph nodes: Unremarkable. No enlarged lymph nodes. IMPRESSION: 1. No free intraperitoneal air. 2. Midline laparotomy. Partial colectomy. RIGHT lower quadrant colostomy. Small peristomal hernia. No small bowel obstruction. 3. Mild gallbladder sludge. 4. Fluid collection in the RIGHT upper quadrant adjacent to the gallbladder fossa, measures approximately 4.3 x 5.6 cm. This may be postoperative in etiology. Electronically signed by: Ranulfo Varela MD 03/11/23 20:05 PM Dictated: 03/11/232004 Transcribed: 03/11/232004 PG Care Time/CCT Total # of Minutes Spent Total Time Spent with Patient: Total time spent is greater than 50% in coordination of care (as documented) at patient's floor/unit and/or counseling patient: Coding Level of Care Code 06715 Post Operative Follow-Up Diagnoses Acute blood loss anemia D62 Melena K92.1 H/O right hemicolectomy Z90.49
[2023-03-12 18:37] LABS: Hematocrit (blood only) 23.3 % (37.0-47.0)
[2023-03-12 23:13] LABS: Hematocrit (blood only) 21.8 % (37.0-47.0); Hemoglobin 7.4 g/dl (12.0-16.0)
[2023-03-12] MEDS ORDERED: SODIUM CHLORIDE 0.9% 250 ML IV PRN (23:21)
[2023-03-13] MEDS: INSULIN ASPART PER UNIT CHARGE SC SCH (03:48)
[2023-03-13] MEDS ORDERED: SODIUM CHLORIDE 0.9% 250 ML IV PRN (05:56)
[2023-03-13 06:41] LABS: Hematocrit (blood only) 26.4 % (37.0-47.0)
--- NOTE | 2023-03-13 06:50 | Discharge Summary ---
Date of Service March 13, 2023 Principal Diagnosis Upper GI bleed Discharge Exam Constitutional: no acute distress HEENT: NCAT, no conjunctival injection CV: extremities well-perfused Resp: no increased work of breathing GI: ostomy in place MSK: no gross deformities appreciated Skin: warm, dry, no rash appreciated Neuro: alert, oriented, no focal neurologic deficit appreciated Discharge Data Allergies Allergy/AdvReac Type Severity Reaction Status Date / Time adhesive tape AdvReac Mild SKIN Verified 02/23/23 22:26 IRRITATION (BANDAIDS) Consultations 02/08/23 15:45 Consult Hospitalist Routine 02/20/23 10:07 Consult Nephrology Routine 02/26/23 08:30 Consult General Surgery Routine 03/09/23 13:39 Consult Gastroenterology Routine 03/11/23 10:24 Consult Vascular Surgery Routine 03/12/23 19:40 Burn CD for patient Stat Procedures Performed Operation Date: 03/12/23 14:20 Actual Procedures p Removal of Perm Catheter(Right) - Samir Triana MD Ordered Studies 02/16/23 15:56 CT Abd and Pelvis [CT abd pelvis oral and IV con] Stat 02/21/23 16:00 US venous doppler UE LT Urgent 02/23/23 08:04 sono, invasive monitoring [US point of care ultrasound] Urgent 02/26/23 12:41 EV cvc insrt tunnel wo prt/auto vinyl top installer Routine 03/03/23 10:00 Fluoro video [FL video swallow] Routine 03/11/23 18:45 CT Abd and Pelvis [CT abd pelvis wo con] Stat Hospital Course (1) Elevated blood pressure reading: Pt is an 87 y/o female with PMH of DM, colon cancer, TIA (2021), dementia, chronic low back pain, CKD, and HLD presenting to the hospital for right hemicolectomy. Initial surgery 02/06. Returned to the OR 02/19 for ischemic bowel resection and ileostomy creation. #Anemia #Coagulability #Bleeding #Heme Positive Stool -Has required at total of 15 units pRBC during this hospital stay, last 3 units 03/11 - EGD 03/11 without source of bleeding, tagged RBC scan with tracer in the mid abdomen/upper pelvis concern for small bowel bleeding - Plan to transfer to [facility] for IR to hopefully stop bleeding #Severe Sepsis with VRE and ESBL #Leukocytosis - 10/27 right hemicolectomy for invasive adenocarcinoma -Patient with clinical deterioration and severe sepsis starting 02/16 secondary to bowel leak. -Patient now s/p ischemic bowel resection with ileostomy creation 02/19. Peritoneal fluid growing VRE E. faecium and ESBL. - Open wound noted on abdomen; wound vac in place - completed 14 days of coverage for cultured bacteria #ARCELIA on CKD IV #ATN -Baseline Cr ~ 1.6-1.7. -overall improving; creatine continues to trend down - nephrology consulted and has been following - required HD; last session 03/02 - good urine output #Elevated BP -Patient with elevated blood pressure most likely secondary to recent surgery and pain. -Was initially started on amlodipine 5 mg during this admission. -We will hold for now due to risk of becoming hypotensive, more lethargic --> want to maintain perfusion; spikes in BP have been asymptomatic #A fib with RVR -Patient without a history of atrial fibrillation, had a bout on 02/20. -Heparin SQ BID for VTE ppx currently held with concern for GI bleed #Parental Nutrition -Pharmacy/Dietary on board. TPN through central access. -Ostomy functioning. 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 -Completed 10 day course of doxycycline #Dementia -Continue Seroquel 12.5 mg and donepezil 5 mg QHS #Insulin Dependent Diabetes Mellitus -SSI while hospitalized. Resume home dosing on discharge #Depression -hold vortioxetine; some research this could make hypocoagulable #OAB -oxybutynin currently being held; if continues to tolerate PO intact could resume #HLD -Statin held while on daptomycin #History of TIA - clopidogrel currently being held (2) Chronic kidney disease, stage IV (severe): (3) Anastomotic leak of intestine: (4) Atrial fibrillation with rapid ventricular response: (5) On parenteral nutrition: Total Time Total Time Spent Total Time Spent (In Minutes): see attending attestation Discharge Plan Discharge Items Patient Disposition: Transfer Acute Care Hospital Reason For Visit: POST OPERATIVE RIGHT HEMICOLECTOMY Discharge Diagnosis: Small Bowel Bleed Activity: As commented below Non-emergency contact: Primary Care Provider Call non-emergency contact if: you have any medication questions Follow-up/Referrals: Sophie Murdock DO [Primary Care Provider] - (Call office for a follow up in 1-2 post operatively You have had elevated BP while in hospital ) Javier Mary DO [Surgeon] - (call office for a follow up in 2 week s) Diet: Full liquid Addtl Attending Provider Instructions: Pt is an 87 y/o female with PMH of DM, colon cancer, TIA (2021), dementia, chronic low back pain, CKD, and HLD presenting to the hospital for right hemicolectomy. Initial surgery 02/06. Returned to the OR 02/19 for ischemic bowel resection and ileostomy creation. #Anemia #Coagulability #Bleeding #Heme Positive Stool -Has required at total of 15 units pRBC during this hospital stay, last 3 units 03/11 - EGD 03/11 without source of bleeding, tagged RBC scan with tracer in the mid abdomen/upper pelvis concern for small bowel bleeding - Hbg= 9.3 this morning, 8.1 at 1400, plan for q4 H/H, transfuse below 8 #Severe Sepsis with VRE and ESBL #Leukocytosis - 02/06 right hemicolectomy for invasive adenocarcinoma -Patient with clinical deterioration and severe sepsis starting 02/16 secondary to bowel leak. -Patient now s/p ischemic bowel resection with ileostomy creation 02/19. Peritoneal fluid growing VRE E. faecium and ESBL. - Open wound noted on abdomen; wound vac in place - completed 14 days of coverage for cultured bacteria #ARCELIA on CKD IV #ATN -Baseline Cr ~ 1.6-1.7. -overall improving; creatine continues to trend down - nephrology consulted and has been following - required HD; last session 03/02 - good urine output #Elevated BP -Patient with elevated blood pressure most likely secondary to recent surgery and pain. -Was initially started on amlodipine 5 mg during this admission. -We will hold for now due to risk of becoming hypotensive, more lethargic --> want to maintain perfusion; spikes in BP have been asymptomatic #A fib with RVR -Patient without a history of atrial fibrillation, had a bout on 02/20. -Heparin SQ BID for VTE ppx currently held with concern for GI bleed #Parental Nutrition -Pharmacy/Dietary on board. TPN through central access. -Ostomy functioning. 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 -Completed 10 day course of doxycycline #Dementia -Continue Seroquel 12.5 mg and donepezil 5 mg QHS #Insulin Dependent Diabetes Mellitus -SSI while hospitalized. Resume home dosing on discharge #Depression -hold vortioxetine; some research this could make hypocoagulable #OAB -oxybutynin currently being held; if continues to tolerate PO intact could resume #HLD -Statin held while on daptomycin #History of TIA - clopidogrel currently being held Pending Studies at Discharge: No Stand-Alone Forms: My [facility] Skilled Items Patient informed of condition?: Yes DNR: No Discharge Level of Care: Other Communicable Disease: No Discharge Prognosis: Deteriorating Lines: Peripheral IV Urinary Catheter: Yes Medications and DC Order Prescriptions: New insulin glargine [Lantus U-100 Insulin] 100 unit/mL Solution 6 unit SC BID Qty: 10 0RF insulin aspart U-100 [Novolog U-100 Insulin aspart] 100 unit/mL Solution See Rx Instructions .ROUTE .COMPLEX Qty: 10 0RF Rx Instructions: SSI Continued (DME) Wheeled Walker Misc See Rx Instructions .Route Qty: 1 0RF Rx Instructions: 4 wheeled walker with seat and brakes (DME) pen needle, diabetic [BD Ultra-Fine Sheri Pen Needle] 32 gauge x 5/32" needle See Rx Instructions .ROUTE .MEDSUPPLY Qty: 100 3RF Rx Instructions: use 1 needle daily with Lantus cholecalciferol (vitamin D3) 50 mcg (2,000 unit) capsule 50 mcg PO QAM (DME) blood-glucose meter Misc See Rx Instructions .ROUTE .MEDSUPPLY Qty: 1 Rx Instructions: Reli-On brand. Test blood sugar once daily ascorbic acid (vitamin C) 500 mg capsule 500 mg PO QAM donepezil [Aricept] 5 mg tablet 5 mg PO HS quetiapine [Seroquel] 25 mg tablet 12.5 mg PO HS Held acetaminophen 500 mg capsule 1,000 mg PO BID PRN (Reason: Pain) Hold Instructions: May resume once stable oxybutynin chloride 10 mg tablet extended release 24hr 10 mg PO QAM Qty: 90 1RF Hold Instructions: May resume once stable Rx Instructions: TAKE 1 TABLET DAILY insulin glargine [Lantus Solostar U-100 Insulin] 100 unit/mL (3 mL) insulin pen 18 unit subcut QPM Qty: 30 3RF Hold Instructions: May resume once stable meclizine 25 mg tablet 25 mg PO TID PRN (Reason: dizziness or vertigo) Qty: 10 0RF Hold Instructions: May resume once stable latanoprost 0.005 % drops 1 drp OPB HS Hold Instructions: May resume once stable Patient Comments: OP instill 1 drop in both eyes at bedtime; Rx Instructions: OP instill 1 drop in both eyes at bedtime; omega-3 acid ethyl esters 1 gram capsule 1 cap PO BID Hold Instructions: May resume once stable Rx Instructions: 500MG ferrous sulfate 325 mg (65 mg iron) tablet 325 mg PO Q2D Hold Instructions: May resume once stable rosuvastatin 10 mg tablet 10 mg PO QAM Hold Instructions: May resume once stable clopidogrel [Plavix] 75 mg tablet 75 mg PO QAM Hold Instructions: May resume when bleeding is stable Patient Comments: has not been taking-pharmacy has not sent it Aranesp (in polysorbate) 60 mcg/mL solution 60 mcg subcut .q2wks Hold Instructions: May resume once stable Rx Instructions: rx by hematology aspirin 81 mg Tablet 81 mg PO DAILY Hold Instructions: May resume once stable calcium 600 mg Capsule 600 mg PO QAM Hold Instructions: May resume once stable PreserVision AREDS-2 250-90-40-1 mg Capsule 1 tab PO QPM Hold Instructions: May resume once stable Discontinued Trintellix 10 mg tablet 10 mg PO HS Discharge Orders: Discharge Order (Routine); Ordered 03/12/23 Ordered By: Kisha Gr Admission Data Admit Date/Time: 02/06/23 14:18 Attending Provider: Modesto Warner Admit Provider: Javier Mary Primary Care Provider: Sophie Murdock Other Providers: Shelby Farfan; [facility]; Roscoe Munoz; Funmi Hansen; Ahsan Kellogg; Harman Perry; Teresa Franco; Boom Montoya; Jeanine Gunn; Javier Mary; Faustina Espinoza; Jose Mitchell; Kimberly Laureano; Daphne Reyes; Brittney Larson; Bianca Little; Gordon Rhodes; Randy Bull; Sophie Amor; Chacorta Betancourt; Tono Multani; Bc Jeffery; Linda Pritchard; Rosalinda Ornelas; Hallie Sloan; Ct Gonzalez; Zully Knott; Jose Padilla; Eddie Perez; Dayami Trujillo; Andres Cordero Jr; Samir Triana Other Interventions: Discharge Summary Assessment (RN) Last Done: 03/13/23 07:22 Resident Activity Tracking Resident Involvement: Resident Care Provided Care Provided: Adult Hospital Medicine
[2023-03-13 07:07] LABS: BUN Creatinine Ratio 66.1 (10-20); Calcium 8.4 mg/dl (8.6-10.3); Creatinine Clr Calc Pharmacy 16.7 ml/min; Est GFR (Non-African American) 18.1 ml/min; Magnesium 2.1 mg/dl (1.7-2.4); Potassium 4.5 mmol/L (3.5-5.1)
--- NOTE | 2023-03-13 08:22 | Nephrology Progress Note ---
Date of Service March 13, 2023 Assessment & Plan (1) Acute kidney injury: Plan: * Non-oliguric. UO 2225 cc last 24 hours. Creatinine unchanged at 2.1 this am. Patient is oxygenating well on RA. She remains within the recovery phase of ARCELIA and is nearing her baseline Cr of 1.6 * Hold diuretic. Patient is diuresing well on her own * Vascular Surgery tp remove R IJ TCC today * Document strict I/O's and repeat metabolic profile tomorrow AM. (2) Chronic kidney disease, stage III (moderate): Plan: * CKD stage G3/A2. Baseline Cr 1.3-1.6. CKD attributed to hypertension and DKD. (3) Anemia: Plan: * Recommend transfusion to maintain Hgb > 8.0 * EGD 03/10/23 revealed nonbleeding gastric ulcer * Await results of bleeding scan (4) Anastomotic leak of intestine: Plan: * Adenocarcinoma of the colon s/p R open hemicolectomy 02/06/23. On post-op day #10 developed a signs of sepsis. Exploratory laparotomy revealed an anastomotic leak/perforation and had resection of the anastomosis w/ creation of an end ileostomy. * Remains on parental nutrition. Admission and Anticipated Discharge Date Admission Date: February 06, 2023 Review of Systems Constitutional: no fever Eyes: no problem reported Ear, Nose, Mouth, Throat: no problem reported Respiratory: no cough and no dyspnea Cardiovascular: no chest pain Gastrointestinal: no nausea and no vomiting Physical Exam Constitutional: + frail appearing Eyes: PERRL, conjunctivae normal, anicteric sclerae ENMT: external ear and nose normal, oropharynx normal Neck: trachea midline, no thyromegaly Respiratory: normal respiratory effort, lungs clear to auscultation Cardiovascular: RRR, no murmur, no edema Rate/Rhythm: regular rate and regular rhythm Extremities: + edema (2+ dependent edema) Gastrointestinal (Abdomen): Inspection/Auscultation: + hypoactive bowel sounds Skin: no rashes, warm and dry Neurologic: Speech / Cognition: normal speech and normal cognition Results & Data Vital Signs (Past 12 Hours) Vital Signs Temp Pulse Pulse Pulse Pulse Pulse Pulse 03/13/23 07:22 36.5 C 76 80 18 L 63 80 03/13/23 03:09 36.5 C 80 03/13/23 02:46 36.3 C L 82 03/13/23 01:52 36.3 C L 83 03/13/23 00:52 36.3 C L 82 03/13/23 00:22 36.4 C 79 03/13/23 00:07 36.3 C L 78 03/12/23 23:50 36.4 C 80 03/12/23 23:13 36.9 C 81 03/12/23 21:58 81 Resp BP BP BP Pulse Ox O2 Del Method 03/13/23 07:22 21 151/61 H 133/71 98 03/13/23 03:09 151/61 H 98 Room Air 03/13/23 02:46 21 112/80 94 03/13/23 01:52 17 130/61 98 03/13/23 00:52 13 107/52 L 100 03/13/23 00:22 16 147/68 H 99 03/13/23 00:07 14 158/68 H 100 03/12/23 23:50 16 151/70 H 100 03/12/23 23:13 15 149/66 H 100 Room Air 03/12/23 21:58 Laboratory Results Laboratory Results - last 24 hr 02/26/23 03/11/23 03/12/23 07:20 16:01 11:05 Hgb Hct Sodium Potassium Chloride Carbon Dioxide Anion Gap BUN Creatinine Est Cr Clr Drug Dosing Est GFR ( Amer) Est GFR (Non-Af Amer) BUN/Creatinine Ratio Glucose POC Glucose 228 H Calcium Phosphorus Magnesium Blood Type O Positive Antibody Screen NEGATIVE Crossmatch See Detail See Detail 03/12/23 03/12/23 03/12/23 14:51 16:00 18:19 Hgb 8.1 L 8.0 L Hct 23.6 L 23.3 L Sodium Potassium Chloride Carbon Dioxide Anion Gap BUN Creatinine Est Cr Clr Drug Dosing Est GFR ( Amer) Est GFR (Non-Af Amer) BUN/Creatinine Ratio Glucose POC Glucose 264 H Calcium Phosphorus Magnesium Blood Type Antibody Screen Crossmatch 03/12/23 03/12/23 03/12/23 20:02 22:47 23:16 Hgb 7.4 L Hct 21.8 L Sodium Potassium Chloride Carbon Dioxide Anion Gap BUN Creatinine Est Cr Clr Drug Dosing Est GFR ( Amer) Est GFR (Non-Af Amer) BUN/Creatinine Ratio Glucose POC Glucose 181 H 123 H Calcium Phosphorus Magnesium Blood Type Antibody Screen Crossmatch 03/13/23 03/13/23 03:45 05:57 Hgb 9.0 L Hct 26.4 L Sodium 138 Potassium 4.5 Chloride 109 H Carbon Dioxide 22 Anion Gap 7 BUN 154 H Creatinine 2.33 H Est Cr Clr Drug Dosing 16.7 Est GFR ( Amer) 21.0 Est GFR (Non-Af Amer) 18.1 BUN/Creatinine Ratio 66.1 H Glucose 186 H POC Glucose 183 H Calcium 8.4 L Phosphorus 5.0 H Magnesium 2.1 Blood Type Antibody Screen Crossmatch PG Care Time/CCT Total # of Minutes Spent Total Time Spent with Patient: Total time spent is greater than 50% in coordination of care (as documented) at patient's floor/unit and/or counseling patient: Coding Diagnoses Acute kidney injury N17.9 Chronic kidney disease, stage III (moderate) N18.30 Anemia D64.9 Anemia type: unspecified type Anastomotic leak of intestine K91.89 (3) Anemia Anemia type: unspecified type Qualified Code(s): D64.9 - Anemia, unspecified
== END 2023-03-13 08:31 | disposition short-term general hospital (02) | DRG 329 ==
LOC: ASU 10:13 → 3N 14:18 → SUATTDRO 14:18 → 2E 02-17 12:36